=== PATIENT | female | born 1960 | race Caucasian/White ===

== ENCOUNTER 2017-08-10 14:11 | Emergency (ER) | payer OTHER, SELFPAY ==
[2017-08-10 14:13] VITALS: BP 138/88; PULSE 86; RESP 16; TEMP 36.8; O2SAT 94; BMI 41.7
--- NOTE | 2017-08-10 14:31 | ED.VISSUMM ---
- ER Visit Summary Date of Service: 08/10/17 Chief Complaint: BRB per rectum. History of Present Illness: The patient is a 57 F who presents because of reported black stool. However, she states she really did not look closely. She has noted bright red blood per rectum on the toilet paper after bowel movements. She denies any rectal pain. She denies history of GI bleed. She denies orthostatic symptoms. She denies nausea vomiting. She states she had 7-8 loose stools yesterday. She has not taken any Pepto-Bismol or Kaopectate. She is on no anticoagulants. Review of systems positive for nausea vomiting diarrhea and possibly black stool and bright red blood noted on toilet paper Past history of GERD, hypertension and anxiety Physical Examination: Vital signs reveal slightly elevated blood pressure 138/88. HEENT exam is unremarkable with pink conjunctivae. Heart is regular without murmur, gallop or rub. S1 and S2 are normal. Lungs are clear to auscultation with good movement of air bilaterally. Abdomen is soft nontender. Bowel sounds are normal. Rectal exam reveals evidence of hemorrhoids. Stool is brown. There was no bright red blood noted on rectal exam. She has no bruising noted or rash. Test Results: CBC is unremarkable. BMP is marked for an elevated glucose of 265. BUN and creatinine are 18 and 1.18. Prior lab results were reviewed and there is no significant change. One would expect elevated BUN/creatinine ratio if patient truly had black stool secondary to GI bleed. Emergency Department Course and Treatment: Because patient is uncertain whether she had black stool and was sent to the emergency room because of black stool a CBC was obtained to assess H&H since this occurred 24 hours ago and to evaluate BUN to creatinine ratio, which one would expect to be elevated if she had a GI bleed. Treatment Plan: Is not orthostatic positive and blood work is unremarkable plan is to discharge to home with appropriate home-going instructions for hemorrhoids Disposition: Discharged to home Impression: Red blood per rectum secondary to hemorrhoids Diarrhea Hyperglycemia and nondiabetic History of hypertension This note was generated with [employer] software. It may contain incorrect words, spelling, and punctuation that were not noted in review of the chart prior to signing ED Disposition - Plan for ED Patient: Disposition: Home or Assisted Living Chief Complaint: GI Bleed Instructions: ED Hemorrhoids, ED Hematochezia Stable, ED Hyperglycemia New Susp Diabetes Referrals: Kate Spencer DO [Primary Care Provider] - 3-5 Days Additional Instructions: You need to make appointment with Dr. Spencer for reassessment in 3-5 days and have your blood sugar rechecked at that time
--- NOTE | 2017-08-10 14:35 | ED.DCSUM_ITS ---
- ER Visit Summary Date of Service: 08/10/17 Chief Complaint: BRB per rectum. History of Present Illness: The patient is a 57 F who presents because of reported black stool. However, she states she really did not look closely. She has noted bright red blood per rectum on the toilet paper after bowel movements. She denies any rectal pain. She denies history of GI bleed. She denies orthostatic symptoms. She denies nausea vomiting. She states she had 7- 8 loose stools yesterday. She has not taken any Pepto-Bismol or Kaopectate. She is on no anticoagulants. Review of systems positive for nausea vomiting diarrhea and possibly black stool and bright red blood noted on toilet paper Past history of GERD, hypertension and anxiety Physical Examination: Vital signs reveal slightly elevated blood pressure 138/ 88. HEENT exam is unremarkable with pink conjunctivae. Heart is regular without murmur, gallop or rub. S1 and S2 are normal. Lungs are clear to auscultation with good movement of air bilaterally. Abdomen is soft nontender. Bowel sounds are normal. Rectal exam reveals evidence of hemorrhoids. Stool is brown. There was no bright red blood noted on rectal exam. She has no bruising noted or rash. Test Results: CBC is unremarkable. BMP is marked for an elevated glucose of 265. BUN and creatinine are 18 and 1.18. Prior lab results were reviewed and there is no significant change. One would expect elevated BUN/creatinine ratio if patient truly had black stool secondary to GI bleed. Emergency Department Course and Treatment: Because patient is uncertain whether she had black stool and was sent to the emergency room because of black stool a CBC was obtained to assess H&H since this occurred 24 hours ago and to evaluate BUN to creatinine ratio, which one would expect to be elevated if she had a GI bleed. Treatment Plan: Is not orthostatic positive and blood work is unremarkable plan is to discharge to home with appropriate home-going instructions for hemorrhoids Disposition: Discharged to home Impression: Red blood per rectum secondary to hemorrhoids Diarrhea Hyperglycemia and nondiabetic History of hypertension This note was generated with [employer] software. It may contain incorrect words, spelling, and punctuation that were not noted in review of the chart prior to signing ED Disposition - Plan for ED Patient: Disposition: Home or Assisted Living Chief Complaint: GI Bleed Instructions: ED Hemorrhoids, ED Hematochezia Stable, ED Hyperglycemia New Susp Diabetes Referrals: Kate Spencer DO [Primary Care Provider] - 3-5 Days Additional Instructions: You need to make appointment with Dr. Spencer for reassessment in 3-5 days and have your blood sugar rechecked at that time
[2017-08-10 15:00] LABS: Hematocrit 38.3 % (37-47); Hemoglobin 12.1 g/dl (12.0-15.0); Mean Corp Hgb Conc 31.6 g/gl (32-36); Mean Corpuscular Hgb 25.9 pg (27.0-32.0); Mean Platelet Vol. 10.4 fl (6.2-12.0); Platelet Count 352 K/mm3 (150-450); RBC Distribution Width CV 14.7 % (11.6-14.6); RBC Distribution Width SD 43.4 fl (35.1-43.9); Red Blood Count 4.67 M/mm3 (4.2-5.4); Scan Indicated on CBC? Y/N NO; White Blood Count 13.2 K/mm3 (4.4-11.0)
[2017-08-10 15:12] LABS: Anion Gap 9 (5-15); BUN 18 mg/dL (7-18); BUN/Creat Ratio 15.1 RATIO (10-20); Calcium,Total 8.6 mg/dL (8.5-10.1); Chloride 103 mmol/L (98-107); Creatinine, Serum 1.19 mg/dL (0.55-1.02); EST Glomerular Filtration Rate 49 mL/min (>60); Est Glom Filt Rate - Afr Amer 60 mL/min (>60); Estimated Creatinine Clearance 43.96 ml/min; Glucose 265 mg/dL (74-106); Potassium 4.7 mmol/L (3.5-5.1); Sodium Level 139 mmol/L (136-145)
[2017-08-10 15:50] VITALS: PULSE 82; RESP 14; O2SAT 98
--- NOTE | 2017-08-10 15:51 | NURSING ---
home med list not entered by nurse prior to d/c.
== END 2017-08-10 15:52 | disposition home or self-care (01) ==
PROVIDERS: Emergency Provider Emergency Medicine; Family Provider Family Medicine; PCP Family Medicine
DX: K64.8 Other hemorrhoids (principal); R19.7 Diarrhea, unspecified; R73.9 Hyperglycemia, unspecified; I10 Essential (primary) hypertension; K21.9 Gastro-esophageal reflux disease without esophagitis; E66.9 Obesity, unspecified; Z68.41 Body mass index [BMI] 40.0-44.9, adult; Z79.899 Other long term (current) drug therapy; Z87.891 Personal history of nicotine dependence
CPT/HCPCS: 80048; 85027; 99282; A4216

== ENCOUNTER → 2017-09-01 16:29 | Outpatient (CLI) | payer OTHER, SELFPAY ==
--- NOTE | 2017-09-01 16:43 | BI_ITS ---
MAMMOGRAPHY - BILATERAL SCREENING REASON FOR EXAM: Female, 57 years old. Routine annual screening examination. PERTINENT HISTORY: NO FAM HX GAINED SINCE LAST MAMM STEREO BX 2000 BILAT KERATOSIS IN IMF MARKED TECHNIQUE: Digital bilateral breast morro (3D mammographic acquisition) in the CC and MLO projections. 2-D mediolateral oblique (MLO) and craniocaudad (CC) views of both breasts were obtained. CAD: Full Field Digital Mammography with Computer Added Detection was performed. COMPARISON: Dec 08 2012 1:29pm FINDINGS: Breast Composition: The breasts are heterogeneously dense, which may obscure small masses. There are no dominant masses or suspicious calcifications. No other significant abnormalities are identified. BI/SCREENING MAMM (CAD), BILAT IMPRESSION: Stable bilateral screening mammogram. Yearly follow-up mammogram recommended. (A) ASSESSMENT CATEGORY: BIRADS Category 2: Benign. A letter regarding these results will be sent to the patient by the facility within 30 days. Approximately 10% of breast cancers are not detected by mammography. A normal mammogram should not delay biopsy of a clinically suspicious abnormality. [id number] Electronically Signed: Aby Muro MD at 15:44 EDT Tel , Service support ,
== END ==
PROVIDERS: Family Provider Family Medicine; PCP Family Medicine; Visit Provider Family Medicine
DX: Z12.31 Encounter for screening mammogram for malignant neoplasm of breast (principal)
CPT/HCPCS: 77063; 77067

== ENCOUNTER → 2017-12-25 14:25 | Outpatient (CLI) | payer OTHER, SELFPAY | LOC: RAD 14:26 | PROVIDERS: Family Provider Family Medicine; PCP Family Medicine; Visit Provider Family Medicine | DX: M51.16 Intervertebral disc disorders with radiculopathy, lumbar region (principal) | CPT/HCPCS: 72114 ==

== ENCOUNTER → 2018-01-12 17:30 | Outpatient (CLI) | payer OTHER, SELFPAY ==
--- NOTE | 2018-01-12 18:15 | MRI_ITS ---
STUDY: MRI LUMBAR SPINE WITHOUT CONTRAST REASON FOR EXAM: Female, 57 years old. Low-back pain TECHNIQUE: Standardized fat and water weighted pulse sequences were obtained in the sagittal and axial planes. COMPARISON: None FINDINGS: No evidence for acute fracture or subluxation. 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 T12-L1: Normal endplates. Normal disc height, hydration and morphology. Normal bilateral facet joints. Normal central canal and bilateral lateral recesses. Normal bilateral intervertebral neural foramina. Normal lumbar lordosis. There is no substantial scoliosis. Normal conus medullaris that terminates at T12-L1 L1-2: Normal endplates. Normal disc height, hydration and morphology. Normal bilateral facet joints. Normal central canal and bilateral lateral recesses. Normal bilateral intervertebral neural foramina. L2-3: Normal endplates. Normal disc height, desiccation and normal morphology. Normal bilateral facet joints. Normal central canal and bilateral lateral recesses. Normal bilateral intervertebral neural foramina. L3-4: Normal endplates. Normal disc height, desiccation and normal morphology. Normal bilateral facet joints. Normal central canal and bilateral lateral recesses. Normal bilateral intervertebral neural foramina. L4-5: Normal endplates. Normal disc height, desiccation and minimal annular bulge. Mild facet arthropathy slightly more pronounced on the left. Normal central canal. Mild left lateral recess and neuroforaminal stenosis. L5-S1: Normal endplates. Normal disc height, desiccation and minor annular bulge with tiny left paracentral annular tear and disc protrusion.. Bilateral facet arthropathy.. Normal central canal. Minor bilateral recess encroachment. Normal bilateral intervertebral neural foramina. Normal visualized sacral ala. Small left renal cyst is present. Normal visualized paraspinous soft tissue structures. MRI/Spine Lumbar (Routine) IMPRESSION: No evidence for acute fracture or other significant bony pathology Mild spinal stenosis at L5-S1 and on the left at L4-5 secondary to disc disease and bony hypertrophy. Electronically Signed: Hubert Richards MD at 19:43 EDT , Service support ,
== END ==
LOC: MRI 17:31
PROVIDERS: Family Provider Family Medicine; PCP Family Medicine; Visit Provider Family Medicine
DX: M51.16 Intervertebral disc disorders with radiculopathy, lumbar region (principal)
CPT/HCPCS: 72148

== ENCOUNTER 2018-04-09 12:28 | Day surgery (SDC) | payer OTHER, SELFPAY ==
[2018-04-09] VITALS (7 sets, daily range): BP systolic 124–139; BP diastolic 69–81; PULSE 90–94; RESP 16; TEMP 36.3–36.8; O2SAT 94–95; BMI 39.6
[2018-04-09 13:10] LABS: Bedside Glucose 113 mg/dL (70-110)
--- NOTE | 2018-04-09 13:50 | RAD_ITS ---
PROCEDURE: Left L3-S1 facet joint block. DATE OF EXAMINATION: April 09, 2018. INDICATION: Female, 57 years old. Chronic low back pain. FLUOROSCOPY TIME (if supplied): (0:22) minutes/seconds Intraoperative fluoroscopic imaging provided for left L3-S1 facet joint block. RAD/L/S Spine w Bend Min 6 Vw IMPRESSION: Intraoperative fluoroscopic services provided for left L3-S1 facet joint block. Electronically Signed: Simeon Osuna MD at 8:17 EST Tel [phone], Service support ,
--- NOTE | 2018-04-09 14:42 | DCINST_ITS ---
- Discharge Diagnoses Current Active Problems: Lumbar facet spondylosis Reason(s) for Visit for Discharge Instructions: Lumbar facet injection You will use the following diet at home:: No restrictions Your food should be the consistency of: Regular Your liquids should be the consistency of: Regular/Thin Discharge Activity: Return to Normal Activity Weight Bearing Status: Weight bearing as tolerated Call your doctor if your incision/area has: Continuous Slow Oozing, Sudden Increased Bleeding, Increased Pain/ Swelling, Increased Redness, Foul Smelling Discharge, Swelling at the incision site Call your doctor if you observe: Fever of 101 or Higher, Coldness, Increased Pain, Uncontrolled pain Suture Line Care: Avoid Pulling/Pushing, Avoid Pinching/Bending Cleanse incision/area with: Soap & Water Allergies/Adverse Reactions: Allergies Penicillins Allergy (Verified 04/08/18 11:04) Hives Medications to take at Discharge Atenolol [Tenormin (beta mine)] 50 mg PO DAILY 06/08/14 Esomeprazole Mag Trihydrate [Nexium] 40 mg PO DAILY 06/08/14 Glipizide [Glucotrol Xl] 10 mg PO BID 06/08/14 Lisinopril [Zestril] 40 mg PO DAILY 06/08/14 Amlodipine [Norvasc] 10 mg PO QHS 04/08/18 Duloxetine Hcl [Cymbalta] 60 mg PO QHS 04/08/18 Liraglutide [Victoza] 1.8 mg SQ DAILY 04/08/18 Meloxicam 15 mg PO DAILY 04/08/18 Metformin HCl [Glucophage] 1,000 mg PO BIDCM 04/08/18 Methocarbamol [Robaxin] 500 mg PO BID 04/08/18 Pramipexole Di-HCl [Mirapex] 0.5 mg PO QHS 04/08/18 Primary Care Physician: Kate Spencer DO [Primary Care Provider] - Test Results: Test results from this visit will be discussed in further detail at your follow- up appointment, if applicable. Please Follow Up With: Claudia Amaya MD
--- NOTE | 2018-04-09 14:42 | PCM.OPRPT ---
Problem List (1) Low back pain Status: Acute (2) Low back pain Status: Acute (3) Spondylosis of lumbar region without myelopathy or radiculopathy Status: Acute Report of Operation Date of Procedure: 04/09/18 Pre-Operative Diagnosis: Facets spondylosis Post-Operative Diagnosis: Lumbar facet spondylosis Surgery/Procedure Performed:: Left-sided lumbar facet injection at the level of the L3-4 L4-5-S1 under fluoroscopy guidance Description of Surgical Findings:: Under sterile conditions. Patient placed in the prone position, pressure points were padded, patient was ready from the nursing and the anesthesia team. After identification of the side and the target area for the block under guided fluoroscopy, the entry site was marked with marking pen. I used Betadine for sterilization of the skin, sterile draping were applied. Using 25-gauge needle to infiltrate the skin with local anesthesia using preservative-free lidocaine 0.5% injected 2.5 mL at each site of entry. Using oblique fluoroscopy, accessed the right medial nerve branch supplying the left lumbar facets L3-4, L4-5, L5-S1 using 22-gauge spinal needle. After confirmation of appropriate needle placement to the targeted area with AP and lateral fluoroscopy, injected 2.5 mL mixture of preservative-free Marcaine 0.5% and Kenalog [20] mg at each site. [place] was removed, pressure dressing were applied. Patient tolerated the procedure well and was taken to the recovery. Type of Anesthesia:: Local MAC, MAC, MAC/Supplemental Description of Procedure: Left-sided lumbar facet blocks, see above
[2018-04-09] MEDS: Bupivacaine 0.25% 30 ML Vial (14:49)
[2018-04-09] MEDS: Triamcinolone Acetonide 40 MG/ML Vial (14:49)
== END 2018-04-09 15:32 | disposition home or self-care (01) ==
LOC: SDC 12:29 → AC 12:30
PROVIDERS: Family Provider Family Medicine; PCP Family Medicine; Referring Provider Anesthesiology; Visit Provider Anesthesiology
PROC: 3E0T3BZ Introduction of Anesthetic Agent into Peripheral Nerves and Plexi, Percutaneous Approach (ICD-10-PCS; CPT 64493; principal; 2018-04-09 13:45)
DX: M47.816 Spondylosis without myelopathy or radiculopathy, lumbar region (principal); M99.53 Intervertebral disc stenosis of neural canal of lumbar region; M48.062 Spinal stenosis, lumbar region with neurogenic claudication; M51.36 Other intervertebral disc degeneration, lumbar region; M51.26 Other intervertebral disc displacement, lumbar region; G89.29 Other chronic pain; E11.9 Type 2 diabetes mellitus without complications; I10 Essential (primary) hypertension; G25.81 Restless legs syndrome; G47.30 Sleep apnea, unspecified; K21.9 Gastro-esophageal reflux disease without esophagitis; Z78.0 Asymptomatic menopausal state; Z79.899 Other long term (current) drug therapy; Z79.84 Long term (current) use of oral hypoglycemic drugs
CPT/HCPCS: 64493; 64494; 64495; 64483; 72114; 82962; J7120

== ENCOUNTER 2018-04-23 12:17 | Day surgery (SDC) | payer OTHER, SELFPAY ==
[2018-04-09 12:50] VITALS: BMI 39.6
[2018-04-23 12:56] VITALS: BP 129/70; PULSE 93; RESP 16; TEMP 36.6; O2SAT 95; BMI 38.3
[2018-04-23 13:11] LABS: Bedside Glucose 117 mg/dL (70-110)
--- NOTE | 2018-04-23 13:40 | RAD_ITS ---
STUDY: X-RAY - LUMBAR SPINE REASON FOR EXAM: Female, 57 years old. Facet block. TECHNIQUE: 5 fluoroscopic spot view(s) of the lumbar spine were obtained. FLUOROSCOPY TIME (if supplied): (0:22) minutes/seconds COMPARISON: None FINDINGS: Fluoroscopic images were submitted, as radiology support for c-arm imaging in the operating room. This is not a diagnostic examination. Images are for documentation purposes only. RAD/L/S Spine Min 4 Views IMPRESSION: As above. Electronically Signed: Holden Esquivel MD at 7:51 EST , Service support ,
[2018-04-23] MEDS: Triamcinolone Acetonide 40 MG/ML Vial (14:45)
[2018-04-23] MEDS: Bupivacaine 0.25% 30 ML Vial (14:45)
[2018-04-23 14:55] VITALS: BP 113/64; BP 139/70; PULSE 101; RESP 16; TEMP 36.2; O2SAT 95
--- NOTE | 2018-04-23 14:58 | DCINST_ITS ---
- Discharge Diagnoses Current Active Problems: Lower back pain due to lumbar facet spondylosis Reason(s) for Visit for Discharge Instructions: To receive right side L3-4 L4-5-S1 facet medial nerve branch block for her lower back pain You will use the following diet at home:: No restrictions, Regular Your food should be the consistency of: Regular Your liquids should be the consistency of: Regular/Thin Discharge Activity: Return to Normal Activity Return to work on:: 04/28/18 May shower in (days): 1 May resume sexual activity in: No Restrictions Weight Bearing Status: Weight bearing as tolerated Call your doctor if your incision/area has: Continuous Slow Oozing, Foul Smelling Discharge Call your doctor if you observe: Coldness, Increased Pain, Numbness or Tingling, Uncontrolled pain Suture Line Care: Avoid Pulling/Pushing, Avoid Pinching/Bending Change Dressing in (Days):: 1 Remove Dressing in (days):: 1 Cleanse incision/area with: Soap & Water, Keep Dressing Clean & Dry Allergies/Adverse Reactions: Allergies Penicillins Allergy (Verified 04/08/18 11:04) Hives Medications to take at Discharge Atenolol [Tenormin (beta mine)] 50 mg PO DAILY 06/08/14 Esomeprazole Mag Trihydrate [Nexium] 40 mg PO DAILY 06/08/14 Glipizide [Glucotrol Xl] 10 mg PO BID 06/08/14 Lisinopril [Zestril] 40 mg PO DAILY 06/08/14 Amlodipine [Norvasc] 10 mg PO QHS 04/08/18 Duloxetine Hcl [Cymbalta] 60 mg PO QHS 04/08/18 Liraglutide [Victoza] 1.8 mg SQ DAILY 04/08/18 Meloxicam 15 mg PO DAILY 04/08/18 Metformin HCl [Glucophage] 1,000 mg PO BIDCM 04/08/18 Methocarbamol [Robaxin] 500 mg PO BID 04/08/18 Pramipexole Di-HCl [Mirapex] 0.5 mg PO QHS 04/08/18 Primary Care Physician: Kate Spencer DO [Primary Care Provider] - Test Results: Test results from this visit will be discussed in further detail at your follow- up appointment, if applicable. Please Follow Up With: Claudia Amaya MD
[2018-04-23 15:00] VITALS: BP 110/61; BP 139/70; PULSE 16; RESP 16; O2SAT 97
--- NOTE | 2018-04-23 15:00 | OP.PCM_ITS ---
Problem List (1) Spondylosis of lumbar region without myelopathy or radiculopathy Status: Acute (2) Low back pain Status: Chronic (3) Low back pain Status: Acute Report of Operation Date of Procedure: 04/23/18 Pre-Operative Diagnosis: Lower back pain due to lumbar facet spondylosis Post-Operative Diagnosis: Same Surgery/Procedure Performed:: Right side L3-4 L4-5 , L5-S1 facets medial nerve branch block under fluoroscopy guidance Description of Surgical Findings:: Under sterile conditions. Patient placed in the prone position, pressure points were padded, patient was ready from the nursing and the anesthesia team. After identification of the side and the target area for the block under guided fluoroscopy, the entry site was marked with marking pen. I used Betadine for sterilization of the skin, sterile draping were applied. Using 25-gauge needle to infiltrate the skin with local anesthesia using preservative-free lidocaine 0.5% injected 2.5 mL at each site of entry. Using oblique fluoroscopy, accessed the right medial nerve branch supplying the [right] lumbar facets L3-4, L4-5, L5-S1 using 22-gauge spinal needle. After confirmation of appropriate needle placement to the targeted area with AP and lateral fluoroscopy, injected 2.5 mL mixture of preservative-free Marcaine 0.5% and Kenalog [10] mg at each site. [place] was removed, pressure dressing were applied. Patient tolerated the procedure well and was taken to the recovery. Type of Anesthesia:: Local MAC Special Medications: Lidocaine 1% preservative-free. Bupivacaine 0.5% preservative-free. Kenalog 40 mg Specimen's removed: None Estimated Blood Loss (mL): None - Complications None - Admit VTE Documentation Reason prophylaxis not ordered:: Procedure Not Indicated
[2018-04-23 15:05] VITALS: BP 120/69; BP 139/70; PULSE 99; RESP 16; O2SAT 94
[2018-04-23 15:10] VITALS: BP 123/76; BP 139/70; PULSE 96; RESP 16; TEMP 36.1; O2SAT 98
[2018-04-23 15:20] VITALS: BP 139/70
== END 2018-04-23 15:40 | disposition home or self-care (01) ==
LOC: SDC 12:17 → AC 12:19
PROVIDERS: Family Provider Family Medicine; PCP Family Medicine; Referring Provider Anesthesiology; Visit Provider Anesthesiology
PROC: 3E0T3BZ Introduction of Anesthetic Agent into Peripheral Nerves and Plexi, Percutaneous Approach (ICD-10-PCS; CPT 64493; principal; 2018-04-23 13:35)
DX: M47.816 Spondylosis without myelopathy or radiculopathy, lumbar region (principal); I10 Essential (primary) hypertension; K21.9 Gastro-esophageal reflux disease without esophagitis; G25.81 Restless legs syndrome; E11.9 Type 2 diabetes mellitus without complications; Z79.84 Long term (current) use of oral hypoglycemic drugs; Z87.891 Personal history of nicotine dependence; Z79.899 Other long term (current) drug therapy
CPT/HCPCS: 01922; 64493; 64494; 64495; 64483; 72110; 82962; J7120

== ENCOUNTER → 2019-03-07 07:34 | Outpatient (CLI) | payer OTHER, SELFPAY ==
[2019-03-07 07:56] LABS: Absolute Lymphocyte Count 2.57 X10^3/uL (0.83-4.51); Absolute Neutrophil Count 9.1 X10^3/uL (2.0-7.7); Basophil# 0.08 X10^3/uL; Basophil% 0.6 % (0-1); Eosinophil# 0.37 X10^3/uL; Eosinophils% 2.9 % (0-5); Hematocrit 39.8 % (37-47); Hemoglobin 12.3 g/dL (12.0-15.0); Lymphocyte # 2.57 X10^3/ul (4.0); Lymphocyte % 19.8 % (19-41); Mean Corp Hgb Conc 30.9 g/dL (32-36); Mean Corpuscular Hgb 25.4 pg (27.0-32.0); Mean Corpuscular Volume 82.1 fL (81-99); Mean Platelet Vol. 9.6 fl (6.2-12.0); Monocyte# 0.74 X10^3/uL; Monocyte% 5.7 % (0-10); NRBC Flagged by Analyzer 0 % (0-5); Neutrophil # 9.07 X10^3/uL (2.7-7.7); Neutrophil % 69.9 % (47-70); Platelet Count 366 K/mm3 (150-450); RBC Distribution Width SD 41.2 fl (35.1-43.9); Red Blood Count 4.85 M/mm3 (4.2-5.4)
[2019-03-07 08:40] LABS: ALB/GLOB Ratio 0.8 RATIO (0.9-2.4); AST(SGOT) 23 U/L (15-37); Alanine Aminotransfer ALT/SGPT 27 U/L (13-56); Albumin, Serum 3.2 g/dL (3.2-5.0); Alkaline Phosphatase 100 U/L (45-117); Anion Gap 10 (5-15); BUN 9 mg/dL (7-18); BUN/Creat Ratio 9.8 RATIO (10-20); Calcium,Total 8.7 mg/dL (8.5-10.1); Chloride 103 mmol/L (98-107); Cholesterol 171 mg/dL (200); Creatinine, Serum 0.92 mg/dL (0.55-1.02); EST Glomerular Filtration Rate 66 mL/min (>60); Est Glom Filt Rate - Afr Amer 80 mL/min (>60); Free T3 2.6 pg/mL (2.18-3.98); Globulin 3.9 g/dL (2.2-4.2); Glucose 165 mg/dL (74-106); High Density Lipoprotein 41 mg/dL; Lipase 251 U/L (73-393); Potassium 3.9 mmol/L (3.5-5.1); Protein, Total 7.1 g/dL (6.4-8.2); Sodium Level 140 mmol/L (136-145); T4 Free Direct 1.19 ng/dL (0.76-1.46); Thyroid Stim Hormone (TSH) 1.21 uIU/mL (0.358-3.74); Triglycerides 146 mg/dL; Very Low Density Lipoprotein 29 mg/dL (5-40)
[2019-03-09 00:12] LABS: Endomysial Antibody IgA Negative (Negative); HEPATITIS B SURFACE AG Negative (Negative); Hepatitis A IgM Antibody Negative (Negative); Hepatitis B Core AB IgM Negative (Negative); Immunoglobulin A 329 mg/dL (87-352)
[2019-03-09 11:57] LABS: Hep C Antibodies 0.1 s/co ratio (0.0-0.9); t-Transglutaminase IgA <2 U/mL (0-3)
== END ==
LOC: LAB 07:37
PROVIDERS: Family Provider Family Medicine; PCP Family Medicine; Referring Provider Family Medicine; Visit Provider Family Medicine
DX: E11.9 Type 2 diabetes mellitus without complications (principal); E78.5 Hyperlipidemia, unspecified; K21.9 Gastro-esophageal reflux disease without esophagitis; R10.9 Unspecified abdominal pain; R53.83 Other fatigue
CPT/HCPCS: 36415; 80053; 80061; 80074; 82784; 83516; 83690; 84439; 84443; 84481; 85025; 86255

== ENCOUNTER 2019-06-22 17:10 | Observation (INO) | payer OTHER, SELFPAY ==
[2019-06-22] VITALS (11 sets, daily range): BP systolic 105–155; BP diastolic 66–85; PULSE 109–127; RESP 14–20; TEMP 36.7–37.2; O2SAT 84–97; BMI 40.4; BMI 40.5; BMI 40.6
[2019-06-22] MEDS: Ipratropium/Albuterol Sulfate 3 ML AMPUL.NEB INHALATION (18:34)
[2019-06-22 18:48] LABS: Absolute Lymphocyte Count 1.25 X10^3/uL (0.83-4.51); Absolute Neutrophil Count 4.6 X10^3/uL (2.0-7.7); Basophil# 0.03 X10^3/uL; Basophil% 0.4 % (0-1); Eosinophil# 0.04 X10^3/uL; Eosinophils% 0.6 % (0-5); Hematocrit 43.1 % (37-47); Lymphocyte # 1.25 X10^3/ul (4.0); Lymphocyte % 17.8 % (19-41); Mean Corp Hgb Conc 30.2 g/dL (32-36); Mean Corpuscular Hgb 24.8 pg (27.0-32.0); Mean Corpuscular Volume 82.1 fL (81-99); Mean Platelet Vol. 9.9 fl (6.2-12.0); Monocyte% 14.2 % (0-10); NRBC Flagged by Analyzer 0 % (0-5); Neutrophil # 4.58 X10^3/uL (2.7-7.7); Neutrophil % 65.2 % (47-70); Platelet Count 303 K/mm3 (150-450); RBC Distribution Width CV 14.6 % (11.6-14.6); RBC Distribution Width SD 43.6 fl (35.1-43.9); Red Blood Count 5.25 M/mm3 (4.2-5.4)
[2019-06-22] MEDS: Acetaminophen 500 MG Tablet 1000 MG PO (18:48)
[2019-06-22] MEDS: 0.9% Normal Saline 1,000 ML 1000 ML IV (18:48)
--- NOTE | 2019-06-22 18:56 | RAD_ITS ---
STUDY: X-RAY CHEST REASON FOR EXAM: Female, 59 years old. COUGH WITH SOB FEVER NAUSEA AND VOMITING TECHNIQUE: PA and lateral views of the chest. COMPARISON: 05/07/2017 FINDINGS: EKG leads project over the chest. The lungs are clear and expanded. There is no demonstrated pleural abnormality. Normal size heart. Normal mediastinum and edwina. Normal visualized pulmonary arteries. Normal visualized aortic arch and descending thoracic aorta. Normal visualized thoracic spine. Normal visualized ribs, clavicles, and shoulders. There are surgical clips in the right upper abdomen. RAD/Chest PA and Lateral IMPRESSION: Stable, nonacute x-ray examination of the chest. Electronically Signed: Miguel Cobb MD ([place]) at 19:32 EST , Service support ,
[2019-06-22 18:58] LABS: Lactic Acid 1.6 mmol/L (0.4-1.9)
[2019-06-22 18:59] LABS: ALB/GLOB Ratio 0.8 RATIO (0.9-2.4); AST(SGOT) 51 U/L (15-37); Alanine Aminotransfer ALT/SGPT 32 U/L (13-56); Albumin, Serum 3.3 g/dL (3.2-5.0); Alkaline Phosphatase 101 U/L (45-117); Anion Gap 4 (5-15); BUN 19 mg/dL (7-18); BUN/Creat Ratio 15.4 RATIO (10-20); Calcium,Total 8.8 mg/dL (8.5-10.1); Chloride 101 mmol/L (98-107); Creatinine, Serum 1.23 mg/dL (0.55-1.02); EST Glomerular Filtration Rate 47 mL/min (>60); Est Glom Filt Rate - Afr Amer 57 mL/min (>60); Estimated Creatinine Clearance 41.48 ml/min; Globulin 4.3 g/dL (2.2-4.2); Glucose 175 mg/dL (74-106); Potassium 4.1 mmol/L (3.5-5.1); Protein, Total 7.6 g/dL (6.4-8.2); Sodium Level 136 mmol/L (136-145)
[2019-06-22 19:44] LABS: Mucous, Urine 0 SEEN /hpf (<or=2+); Red Blood Cells-Urine 0 SEEN /hpf (0-5)
[2019-06-22 19:47] LABS: Color, Urine Yellow (Yellow); Glucose, Dipstick Normal (Normal); Ketone-Dipstick 15 mg/dl (Negative); Leukocyte Esterase-Dipstick 25 /ul (Negative); Nitrite-Dipstick Positive (Negative); Occult Blood-Urine Negative /ul (Negative); Protein-Dipstick 30 mg/dl (Negative); Specific Gravity, Urine 1.025 (1.002-1.030); Urine Bilirubin Dipstick Negative (Negative); Urine Clarity Clear (Clear); Urine Urobilinogen Normal (Normal)
[2019-06-22 20:03] LABS: Hyaline Cast 0-5 SEEN /lpf (0-5)
[2019-06-22 20:04] LABS: Bacteria RARE /hpf (None Seen); Squamous Epithelial Cells - UA 0-5 SEEN /hpf (5-10); White Blood Cells 0-5 SEEN /hpf (0-5)
--- NOTE | 2019-06-22 21:21 | ED.VISSUMM ---
- ER Visit Summary Date of Service: 06/22/19 Chief Complaint: Shortness of breath and congestion History of Present Illness: The patient is a 59 F who presents with shortness of breath and congestion that is been getting worse over the past 3 days. Patient states she feels congested in her chest. Patient states she has generalized aches. Patient admits to subjective fevers. Patient also admits to some nausea, vomiting, and diarrhea. Patient denies any chest pain. Patient admits to a cough but denies any sputum production. Patient states nothing makes it better or worse. Physical Examination: Vital signs are stable except for tachycardia of 127. Patient's pulse oximeter is 87% on room air. Patient does not use home oxygen. Oral mucosa is pink and moist. Neck is supple. Trachea is midline. There is no JVD. Heart was regular and tachycardic. Lungs showed diffuse expiratory wheezing. Abdomen is soft. Bowel sounds are normal. There is no tenderness. Cranial nerves II through XII are intact. There are no focal motor or sensory deficits noted. Test Results: PA and lateral chest x-ray was obtained. There is no acute cardiopulmonary process. CBC was normal. Comprehensive metabolic profile showed a slightly elevated creatinine of 1.23 and a BUN of 19. Urinalysis does not show any evidence of urinary tract infection. EKG shows sinus tachycardia with a rate of 125. There are no acute ST or T wave changes. Influenza swab was positive for influenza A. Emergency Department Course and Treatment: Patient was given IV fluids here. Patient was given a DuoNeb aerosol initially. Patient was given a dose of Tylenol. Patient was still having wheezing on reevaluation. Patient was given a dose of albuterol and prednisone. Patient walked to the bathroom and her pulse ox dropped to 84% on room air. I recommended to the patient that she be admitted to the hospital. Patient is agreeable with this. Case was discussed with the hospitalist. He will admit the patient to his service. Disposition: Admit to hospital Impression: 1. Hypoxia 2. Reactive airway disease This note was generated with [employer] software. It may contain incorrect words, spelling, and punctuation that were not noted in review of the chart prior to signing ED Disposition - Plan for ED Patient: Disposition: Acute Care Hospital [facility] Diagnosis: Hypoxia, Reactive airway disease
--- NOTE | 2019-06-22 21:24 | EKG12_ITS ---
Test Reason : SOB Blood Pressure : / mmHG Vent. Rate : 125 BPM Atrial Rate : 125 BPM P-R Int : 156 ms QRS Dur : 080 ms QT Int : 312 ms P-R-T Axes : 072 -03 048 degrees QTc Int : 450 ms Sinus tachycardia Otherwise normal ECG Confirmed by DREW SNIDER, IMAN ([id number]), editor index MARTI SELF ([id number]) on 06/27/2019 2:32:31 PM Referred By: JEAN Confirmed By:KEN RUSSELL MD
--- NOTE | 2019-06-22 21:24 | PCM.HP.STD ---
Problem List (1) Viral syndrome Status: Acute (2) Hypoxia Status: Acute (3) Reactive airway disease Status: Acute (4) Spondylosis of lumbar region without myelopathy or radiculopathy Status: Chronic (5) Low back pain Status: Chronic (6) Low back pain Status: Chronic History of Present Illness Date of Admission: 06/22/19 Chief Complaint: sob The patient is a 59 year old F with a significant history of chronic back pain; diabetes mellitus; Bahena's esophagitis; and hypertension who presented to emergency department with shortness of breath. Associated with her symptoms is nonproductive cough; nausea; vomiting and diarrhea. Patient reports loose bowel movements with coughing. At the emergency department patient was found to have oxygen saturation of 87% on room air at rest; and with ambulation oxygen saturation dropped to 84%. Past Medical History Past Medical History (Chronic Problems): Chronic Problems Spondylosis of lumbar region without myelopathy or radiculopathy (Chronic) Low back pain (Chronic) Low back pain (Chronic) Allergies Penicillins Allergy (Verified 04/08/18 11:04) Hives Home Medications: Ambulatory Orders Medication Instructions Recorded Atenolol [Tenormin (beta mine)] 50 mg PO DAILY 06/08/14 Esomeprazole Mag Trihydrate 40 mg PO DAILY 06/08/14 [Nexium] Lisinopril [Zestril] 40 mg PO DAILY 06/08/14 Amlodipine [Norvasc] 10 mg PO QHS 04/08/18 Duloxetine Hcl [Cymbalta] 60 mg PO QHS 04/08/18 Pramipexole Di-HCl [Mirapex] 0.5 mg PO QHS 04/08/18 metFORMIN HCl [Glucophage] 1,000 mg PO BIDCM 04/08/18 Cyclobenzaprine HCl 10 mg PO TID PRN PRN 06/22/19 Dulaglutide [Trulicity] 1.5 injectable SQ WEBSTER 06/22/19 Glipizide [Glipizide Xl] 10 mg PO DAILY 06/22/19 Surgical History: cholecystectomy Lives: With Family Smoking Status: Former smoker Alcohol: None - *Family History Maternal History Items: - - Patient thinks that her mother was at the event of getting diabetes. Paternal History Items: Cancer - bladder Review of Systems Constitutional: Reports: Fever - Subjective. Denies: Chills, Weight Change HEENT: Denies: Head Aches, Sinus Congestion, Sinus Drainage Cardiovascular: Denies: Chest Pain, Palpitations Respiratory: Reports: Cough, Shortness of Breath. Denies: Sputum production Gastrointestinal: Reports: Diarrhea, Nausea, Vomiting. Denies: Abdominal Pain Genitourinary: Denies: Dysuria Musculoskeletal: Reports: Muscle pain. Denies: Joint Pain, Joint Tenderness Skin: Denies: Rash, Wounds Neurological: Denies: Numbness, Tingling, Focal weakness Psychiatric: Denies: Anxiety, Depression, Homicidal Ideations, Suicidal Ideations Hematologic/ Lymphatic: Denies: Easy Bruising, Easy Bleeding VTE Information - Inpt Only VTE Present on Admission: No VTE Mechan Device Prophylaxis: None VTE Pharm Prophylaxis ordered?: Yes Patient Problems: Active and Suspected Problems Hypoxia (Acute) Reactive airway disease (Acute) Viral syndrome (Acute) - Physical Exam Vitals/I&O's: Vital Signs Temp Pulse Resp BP Pulse Ox 98.1 F 109 H 15 105/74 95 06/22/19 20:00 06/22/19 20:00 06/22/19 20:00 06/22/19 20:00 06/22/19 20:00 Oxygen Flow Rate (L/min) 3 Oxygen Delivery Method Nasal Cannula Weight: 108.4 kg Body Mass Index (BMI) 40.4 Intake and Output for Last 24 Hours 06/20/19 06/21/19 06/22/19 23:59 23:59 23:59 Intake Total 1000 / 1000 Balance 1000 / 1000 General: Alert, Oriented x3, Cooperative HEENT: Atraumatic, PERRLA, EOMI, Normocephalic Neck: Supple, No JVD, Negative Carotid Bruits Lungs: Rhonchi, Wheezes Cardiovascular: Regular Rhythm, Normal S1, Normal S2, No murmurs, Tachycardic Abdomen: Bowel Sounds Present, Soft, Non Tender Extremities: No edema, Capillary Refill Less than 3 Seconds Skin: - - Scabbed area on left perez Musculoskeletal: No Tenderness to Palpation of Joints or Extremities Neurological: Cranial nerves II-XII grossly intact Psych/Mental Status: Normal Affect, Appropriate Laboratory Results 06/22/19 17:55: WBC 7.0, RBC 5.25, Hgb 13.0, Hct 43.1, MCV 82.1, MCH 24.8 L, MCHC 30.2 L, RDW Std Deviation 43.6, RDW Coeff of Moris 14.6, Plt Count 303, MPV 9.9, Immature Gran % (Auto) 1.800 H, Neut % (Auto) 65.2, Lymph % (Auto) 17.8 L, Haywood % (Auto) 14.2 H, Eos % (Auto) 0.6, Baso % (Auto) 0.4, Absolute Neuts (auto) 4.6, Absolute Lymphs (auto) 1.25, Nucleated RBC % 0 06/22/19 17:55: Sodium 136, Potassium 4.1, Chloride 101, Carbon Dioxide 31.0, Anion Gap 4 L, BUN 19 H, Creatinine 1.23 H, Estim Creat Clear Calc 41.48, Est GFR (MDRD) Af Amer 57 L, Est GFR (MDRD) Non-Af 47 L, BUN/Creatinine Ratio 15.4, Glucose 175 H, Calcium 8.8, Total Bilirubin 0.10 L, AST 51 H, ALT 32, Alkaline Phosphatase 101, Total Protein 7.6, Albumin 3.3, Globulin 4.3 H, Albumin/Globulin Ratio 0.8 L 06/22/19 17:55: Lactic Acid 1.6 06/22/19 19:40: Urine Color Yellow, Urine Clarity Clear, Urine pH 5.0, Ur Specific Mcclure 1.025, Urine Protein 30 H, Urine Glucose (UA) Normal, Urine Ketones 15 H, Urine Occult Blood Negative, Urine Nitrite Positive H, Urine Bilirubin Negative, Urine Urobilinogen Normal, Ur Leukocyte Esterase 25 H, Urine RBC 0 SEEN, Urine WBC 0-5 SEEN, Ur Squamous Epith Cells 0-5 SEEN, Urine Bacteria RARE, Hyaline Casts 0-5 SEEN, Urine Mucus 0 SEEN Assessment/Plan All Active Problems Hypoxia (Acute) Reactive airway disease (Acute) Viral syndrome (Acute) The patient is a 59 year old F with a significant history of chronic back pain; diabetes mellitus; Bahena's esophagitis; and hypertension who presented to emergency department with shortness of breath; nonproductive cough; nausea; vomiting and diarrhea; bandemia; and hypoxia consistent with viral syndrome. Viral syndrome Influenza screen was done at emergency department. Follow results. If negative consider comprehensive respiratory pathogen panel. Was given prednisone 60 mg at the Emergency department. Continue patient on prednisone 40 mg daily. Mucinex ordered. Scheduled DuoNeb and PRN albuterol ordered. Chest x-ray showed no acute abnormality. Chest x-ray was independently reviewed. I agree with radiologist interpretation. Trend CBC and BMP. Hypertension On presentation blood pressure was not within goal Atenolol and amlodipine continued. Lisinopril continued. Trend blood pressure and adjust blood pressure medications. Diabetes mellitus with nephropathy and hyperglycemia Patient with proteinuria and CKD. On presentation blood glucose was elevated. Hold home metformin in the setting of acute disease. At home patient takes Trulicity weekly on Sundays. Continue glipizide. Add correction scale insulin. Chronic back pain Cymbalta and cyclobenzaprine continued. Elevated liver enzymes Found to have elevated AST likely fatty liver disease. Follow-up outpatient. CKD stage III Stable Left leg syndrome Mirapex continued DVT Prophylaxis Subcutaneous Lovenox. Code Visit OBSV E&M: 19564 Initial observation care L3
[2019-06-22] MEDS: Albuterol 2.5 MG/3 ML VIAL.NEB. INHALATION (21:25)
[2019-06-22] MEDS: predniSONE 20 MG Tablet 60 MG PO (21:25)
[2019-06-23] VITALS (13 sets, daily range): BP systolic 121–135; BP diastolic 58–76; PULSE 94–111; RESP 12–20; TEMP 36.3–36.8; O2SAT 92–97
[2019-06-23] MEDS: Ipratropium/Albuterol Sulfate 3 ML AMPUL.NEB INHALATION ×5 (00:05→19:51)
[2019-06-23] MEDS: Oseltamivir Phosphate 30 MG Capsule PO ×3 (00:27→21:41)
[2019-06-23] MEDS: guaiFENesin 1,200 MG Tablet 1200 MG PO ×3 (00:28→21:41)
[2019-06-23] MEDS: Pramipexole Di-HCl 0.5 MG Tablet PO ×2 (00:28→21:41)
[2019-06-23] MEDS: DULoxetine Hcl 60 MG Capsule PO ×2 (00:29→21:41)
[2019-06-23] MEDS: amLODIPine 10 MG Tablet PO ×2 (00:29→21:41)
[2019-06-23] MEDS: Insulin Lispro 100 UNIT/ML INSULN.PEN SC ×5 (00:33→21:38)
[2019-06-23 00:40] LABS: Bedside Glucose 242 mg/dL (70-110)
[2019-06-23 05:52] LABS: Absolute Lymphocyte Count 0.56 X10^3/uL (0.83-4.51); Absolute Neutrophil Count 4.7 X10^3/uL (2.0-7.7); Basophil# 0.02 X10^3/uL; Basophil% 0.4 % (0-1); Hematocrit 41.9 % (37-47); Hemoglobin 12.4 g/dL (12.0-15.0); Lymphocyte # 0.56 X10^3/ul (4.0); Mean Corp Hgb Conc 29.6 g/dL (32-36); Mean Corpuscular Hgb 24.4 pg (27.0-32.0); Mean Corpuscular Volume 82.5 fL (81-99); Mean Platelet Vol. 9.5 fl (6.2-12.0); Monocyte# 0.21 X10^3/uL; Monocyte% 3.8 % (0-10); NRBC Flagged by Analyzer 0 % (0-5); Neutrophil # 4.68 X10^3/uL (2.7-7.7); Neutrophil % 83.8 % (47-70); POSITIVE DIFFERENTIAL YES; Platelet Count 263 K/mm3 (150-450); RBC Distribution Width CV 14.6 % (11.6-14.6); RBC Distribution Width SD 43.3 fl (35.1-43.9); Red Blood Count 5.08 M/mm3 (4.2-5.4); White Blood Count 5.6 K/mm3 (4.4-11.0)
[2019-06-23 06:13] LABS: Anion Gap 7 (5-15); BUN 19 mg/dL (7-18); BUN/Creat Ratio 18.3 RATIO (10-20); Calcium,Total 8.6 mg/dL (8.5-10.1); Chloride 103 mmol/L (98-107); Creatinine, Serum 1.04 mg/dL (0.55-1.02); EST Glomerular Filtration Rate 57 mL/min (>60); Est Glom Filt Rate - Afr Amer 69 mL/min (>60); Estimated Creatinine Clearance 49.05 ml/min; Glucose 276 mg/dL (74-106); Potassium 4.5 mmol/L (3.5-5.1); Sodium Level 137 mmol/L (136-145)
[2019-06-23 06:25] LABS: Differential Indicated SCAN CRITERIA MET
[2019-06-23 06:33] LABS: Differential Comment SCANNED
[2019-06-23 06:51] LABS: Bedside Glucose 298 mg/dL (70-110)
[2019-06-23] MEDS: predniSONE 20 MG Tablet 40 MG PO (09:45)
[2019-06-23] MEDS: Lisinopril 40 MG Tablet PO ×2 (09:45)
[2019-06-23] MEDS: Atenolol 50 MG Tablet PO (09:45)
[2019-06-23] MEDS: Pantoprazole Sodium 40 MG Tablet PO (09:45)
[2019-06-23] MEDS: glipiZIDE XL 5 MG Tablet 10 MG PO (09:45)
[2019-06-23] MEDS: Enoxaparin 40 MG/0.4 ML Syringe SC (09:46)
--- NOTE | 2019-06-23 11:10 | PN_ITS ---
<John Brito - Last Filed: 06/23/19 11:10> Patient Problems: Active and Suspected Problems Influenza A (Acute) Hypoxia (Acute) Reactive airway disease (Acute) Viral syndrome (Acute) Reason for Visit: SOB Subjective: SOB improved, still mild. Pt on O2. She does not wear this at home. She denies a hx of COPD or asthma, or lung disease. She is a former smoker 30 years. She is still very wheezy and has a nonproductive cough. No fever/chills. She has Flu A, she did have flu shot. Vitals/I&O's: Vital Signs Temp Pulse Resp BP Pulse Ox 97.3 F L 109 H 18 135/76 H 93 06/23/19 09:29 06/23/19 10:00 06/23/19 09:29 06/23/19 09:29 06/23/19 10:00 Oxygen Flow Rate (L/min) 2 Oxygen Delivery Method Nasal Cannula Weight: 240 lb Body Mass Index (BMI) 40.5 Intake and Output for Last 24 Hours 06/21/19 06/22/19 06/23/19 23:59 23:59 23:59 Intake Total 1000 / 1300 600 / 600 Output Total 0 / 0 Balance 1000 / 1300 600 / 600 General: Alert, Oriented x3, Cooperative HEENT: Atraumatic, PERRLA, EOMI, Normocephalic Neck: Supple, No JVD, Negative Carotid Bruits Lungs: Normal air movement, Rales, Wheezes Cardiovascular: Regular rate, No murmurs Abdomen: Bowel Sounds Present, Soft, Non Tender, Obese Extremities: No edema, Capillary Refill Less than 3 Seconds Skin: No rashes, No breakdown Musculoskeletal: No Tenderness to Palpation of Joints or Extremities Neurological: Cranial nerves II-XII grossly intact Psych/Mental Status: Normal Affect, Appropriate, Alert and oriented to time, place, person, mood and affect Microbiology Past 72 Hours 06/22/19 21:29 Mucosa - Nasopharyngeal Respiratory Panel (PCR) - Final Influenza A (Subtype H1) 06/22/19 21:29 Mucosa - Nasopharyngeal Influenza Types A,B Direct FA (MIKAEL) - Final Influenzae A Laboratory Results 06/22/19 17:55: WBC 7.0, RBC 5.25, Hgb 13.0, Hct 43.1, MCV 82.1, MCH 24.8 L, MCHC 30.2 L, RDW Std Deviation 43.6, RDW Coeff of Moris 14.6, Plt Count 303, MPV 9.9, Immature Gran % (Auto) 1.800 H, Neut % (Auto) 65.2, Lymph % (Auto) 17.8 L, Mason % (Auto) 14.2 H, Eos % (Auto) 0.6, Baso % (Auto) 0.4, Absolute Neuts (auto) 4.6, Absolute Lymphs (auto) 1.25, Nucleated RBC % 0 06/22/19 17:55: Sodium 136, Potassium 4.1, Chloride 101, Carbon Dioxide 31.0, Anion Gap 4 L, BUN 19 H, Creatinine 1.23 H, Estim Creat Clear Calc 41.48, Est GFR (MDRD) Af Amer 57 L, Est GFR (MDRD) Non-Af 47 L, BUN/Creatinine Ratio 15.4, Glucose 175 H, Calcium 8.8, Total Bilirubin 0.10 L, AST 51 H, ALT 32, Alkaline Phosphatase 101, Total Protein 7.6, Albumin 3.3, Globulin 4.3 H, Albumin/Globulin Ratio 0.8 L 06/22/19 17:55: Lactic Acid 1.6 06/22/19 19:40: Urine Color Yellow, Urine Clarity Clear, Urine pH 5.0, Ur Specific Carney 1.025, Urine Protein 30 H, Urine Glucose (UA) Normal, Urine Ketones 15 H, Urine Occult Blood Negative, Urine Nitrite Positive H, Urine Bilirubin Negative, Urine Urobilinogen Normal, Ur Leukocyte Esterase 25 H, Urine RBC 0 SEEN, Urine WBC 0-5 SEEN, Ur Squamous Epith Cells 0-5 SEEN, Urine Bacteria RARE, Hyaline Casts 0-5 SEEN, Urine Mucus 0 SEEN 06/23/19 00:25: POC Glucose 242 H 06/23/19 05:40: WBC 5.6, RBC 5.08, Hgb 12.4, Hct 41.9, MCV 82.5, MCH 24.4 L, MCHC 29.6 L, RDW Std Deviation 43.3, RDW Coeff of Moris 14.6, Plt Count 263, MPV 9.5, Immature Gran % (Auto) 2.000 H, Neut % (Auto) 83.8 H, Lymph % (Auto) 10.0 L , Mason % (Auto) 3.8, Eos % (Auto) 0.0, Baso % (Auto) 0.4, Absolute Neuts (auto) 4.7, Absolute Lymphs (auto) 0.56 L, Nucleated RBC % 0, Differential Comment SCANNED 06/23/19 05:40: Sodium 137, Potassium 4.5, Chloride 103, Carbon Dioxide 27.0, Anion Gap 7, BUN 19 H, Creatinine 1.04 H, Estim Creat Clear Calc 49.05, Est GFR (MDRD) Af Amer 69, Est GFR (MDRD) Non-Af 57 L, BUN/Creatinine Ratio 18.3, Glucose 276 H, Calcium 8.6 06/23/19 06:42: POC Glucose 298 H Current Medications Acetaminophen (Tylenol) 650 mg PO Q6H PRN PRN PRN Reason: Pain Score 1-10/Temp > 100.7 F Albuterol Sulfate (Ventolin Aerosols) 2.5 mg INHALATION Q2H PRN PRN PRN Reason: Shortness of Breath/Wheezing Albuterol/Ipratropium (Duoneb) 3 ml INHALATION Q4HWA.RT [facility] Last Admin: 06/23/19 10:58 Dose: 3 ml Documented by: Amlodipine Besylate (Norvasc) 10 mg PO QHS [facility] Last Admin: 06/23/19 00:29 Dose: 10 mg Documented by: Atenolol (Tenormin (Beta Negin)) 50 mg PO DAILY [facility] Last Admin: 06/23/19 09:45 Dose: 50 mg Documented by: Cyclobenzaprine HCl (Flexeril) 10 mg PO TID PRN PRN PRN Reason: MUSCLE SPASMS Duloxetine HCl (Cymbalta) 60 mg PO QHS [facility] Last Admin: 06/23/19 00:29 Dose: 60 mg Documented by: Enoxaparin Sodium (Lovenox) 40 mg SC DAILY [facility] Last Admin: 06/23/19 09:46 Dose: 40 mg Documented by: [facility] ([facility]l) [facility] Last Admin: 06/23/19 09:45 Dose: 10 mg Documented by: Glucagon () 1 mg IM .X1 PRN PRN Reason: Hypoglycemia Guaifenesin (Mucinex) 1,200 mg PO BID [facility] Last Admin: 06/23/19 09:46 Dose: 1,200 mg Documented by: Sodium Chloride () 250 mls @ 15 mls/hr IV .[id number] PRN PRN Reason: Saline Flush Sodium Chloride () 250 mls @ 15 mls/hr IV .[id number] PRN PRN Reason: Additional IVPB Infusion Dextrose (Dextrose 10%-Water) 250 mls @ 999 mls/hr IV .Q16M PRN; Protocol PRN Reason: HYPOGLYCEMIA Insulin Human Lispro (Humalog Kwikpen (Bkc)) 0 unit SC ACHS [facility]; Protocol Last Admin: 06/23/19 06:44 Dose: 6 u Documented by: Lisinopril (Zestril) 40 mg PO DAILY [facility] Last Admin: 06/23/19 09:45 Dose: 40 mg Documented by: Ondansetron HCl (Zofran) 4 mg IV Q8H PRN PRN PRN Reason: NAUSEA/VOMITING Oseltamivir Phosphate (Tamiflu) 30 mg PO BID [facility] Stop: 06/27/19 10:01 Last Admin: 06/23/19 09:46 Dose: 30 mg Documented by: Pantoprazole Sodium (Protonix) 40 mg PO DAILY [facility] Last Admin: 06/23/19 09:45 Dose: 40 mg Documented by: Pramipexole Dihydrochloride (Mirapex) 0.5 mg PO QHS [facility] Last Admin: 06/23/19 00:28 Dose: 0.5 mg Documented by: Prednisone () 40 mg PO DAILY@0800 [facility] Last Admin: 06/23/19 09:45 Dose: 40 mg Documented by: Sodium Chloride () 10 - 40 ml IV UD PRN PRN Reason: SALINE FLUSH STROKE Vital Signs/Narrative: Vital Signs Temp Pulse Resp BP Pulse Ox 06/23/19 10:00 109 H 93 06/23/19 09:29 97.3 F L 111 H 18 135/76 H 93 Medical Necessity - Tobacco Use Smoking Status: Former smoker Assessment/Plan All Active Problems Influenza A (Acute) Hypoxia (Acute) Reactive airway disease (Acute) Viral syndrome (Acute) 1. Acute influenza A viral syndrome - still very wheezy and requiring O2. Mild tachy. No fever / leukocytosis. Give solumedrol and aerosols, PEP and IS. Suspect underlying lung disease - 30 year smoker. Needs PFTs as o/p. Continue tamiflu. 2. HTN - mildly elevated. 3. DMt2 with morbid obesity - fluctuant likely due to steroids. Continue current meds + SSI. 4. Chronic back pain - cymbalta, cyclobenzaprine 5. Abnormal LFTs - mild. follow up with PCP, recheck CMP after DC. 6. CKDIII - improved. 7. RLS - mirapex DVT ppx: lovenox DC planning: wean o2, possibly home tomorrow. This patient was seen by John Brito PA-C under the supervision of Dr. Schmid <Osman Schmid - Last Filed: 06/23/19 14:27> Reason for Visit: Shortness of breath, influenza A. Possible COPD exacerbation Subjective: Patient has history of smoking of 32 pack years. Patient already quit about 14 years ago. Complaint of shortness of breath, wheezing, cough and bronchitis symptoms. Influenza A positive. Vitals/I&O's: Vital Signs Temp Pulse Resp BP Pulse Ox 97.3 F L 105 H 20 H 135/76 H 93 06/23/19 09:29 06/23/19 10:58 06/23/19 10:58 06/23/19 09:29 06/23/19 10:00 Oxygen Flow Rate (L/min) 2 Oxygen Delivery Method Nasal Cannula Weight: 240 lb Body Mass Index (BMI) 40.5 Intake and Output for Last 24 Hours 06/21/19 06/22/19 06/23/19 23:59 23:59 23:59 Intake Total 1000 / 1300 1040 / 1040 Output Total 0 / 0 Balance 1000 / 1300 1040 / 1040 General: Alert, Oriented x3, Cooperative HEENT: Atraumatic, PERRLA, EOMI, Normocephalic Neck: Supple, No JVD, Negative Carotid Bruits Lungs: Rales, Rhonchi, Short of Breath, Wheezes Cardiovascular: Regular rate, Regular Rhythm, Normal S1, Normal S2, No murmurs Abdomen: Bowel Sounds Present, Soft, Non Tender, Non-Distended Extremities: No edema, Capillary Refill Less than 3 Seconds Skin: No rashes, No breakdown Musculoskeletal: No Tenderness to Palpation of Joints or Extremities, Arthritic Changes Neurological: Cranial nerves II-XII grossly intact, Deep Tendon Reflexes 2+/4 and Symmetrical, Neuro grossly intact Psych/Mental Status: Normal Affect, Appropriate Microbiology Past 72 Hours 06/22/19 21:29 Mucosa - Nasopharyngeal Respiratory Panel (PCR) - Final Influenza A (Subtype H1) 06/22/19 21:29 Mucosa - Nasopharyngeal Influenza Types A,B Direct FA (MIKAEL) - Final Influenzae A Laboratory Results 06/22/19 17:55: WBC 7.0, RBC 5.25, Hgb 13.0, Hct 43.1, MCV 82.1, MCH 24.8 L, MCHC 30.2 L, RDW Std Deviation 43.6, RDW Coeff of Moris 14.6, Plt Count 303, MPV 9.9, Immature Gran % (Auto) 1.800 H, Neut % (Auto) 65.2, Lymph % (Auto) 17.8 L, Mason % (Auto) 14.2 H, Eos % (Auto) 0.6, Baso % (Auto) 0.4, Absolute Neuts (auto) 4.6, Absolute Lymphs (auto) 1.25, Nucleated RBC % 0 06/22/19 17:55: Sodium 136, Potassium 4.1, Chloride 101, Carbon Dioxide 31.0, Anion Gap 4 L, BUN 19 H, Creatinine 1.23 H, Estim Creat Clear Calc 41.48, Est GFR (MDRD) Af Amer 57 L, Est GFR (MDRD) Non-Af 47 L, BUN/Creatinine Ratio 15.4, Glucose 175 H, Calcium 8.8, Total Bilirubin 0.10 L, AST 51 H, ALT 32, Alkaline Phosphatase 101, Total Protein 7.6, Albumin 3.3, Globulin 4.3 H, Albumin/Globulin Ratio 0.8 L 06/22/19 17:55: Lactic Acid 1.6 06/22/19 19:40: Urine Color Yellow, Urine Clarity Clear, Urine pH 5.0, Ur Specific Carney 1.025, Urine Protein 30 H, Urine Glucose (UA) Normal, Urine Ketones 15 H, Urine Occult Blood Negative, Urine Nitrite Positive H, Urine Bilirubin Negative, Urine Urobilinogen Normal, Ur Leukocyte Esterase 25 H, Urine RBC 0 SEEN, Urine WBC 0-5 SEEN, Ur Squamous Epith Cells 0-5 SEEN, Urine Bacteria RARE, Hyaline Casts 0-5 SEEN, Urine Mucus 0 SEEN 06/23/19 00:25: POC Glucose 242 H 06/23/19 05:40: WBC 5.6, RBC 5.08, Hgb 12.4, Hct 41.9, MCV 82.5, MCH 24.4 L, MCHC 29.6 L, RDW Std Deviation 43.3, RDW Coeff of Moris 14.6, Plt Count 263, MPV 9.5, Immature Gran % (Auto) 2.000 H, Neut % (Auto) 83.8 H, Lymph % (Auto) 10.0 L , Mason % (Auto) 3.8, Eos % (Auto) 0.0, Baso % (Auto) 0.4, Absolute Neuts (auto) 4.7, Absolute Lymphs (auto) 0.56 L, Nucleated RBC % 0, Differential Comment SCANNED 06/23/19 05:40: Sodium 137, Potassium 4.5, Chloride 103, Carbon Dioxide 27.0, Anion Gap 7, BUN 19 H, Creatinine 1.04 H, Estim Creat Clear Calc 49.05, Est GFR (MDRD) Af Amer 69, Est GFR (MDRD) Non-Af 57 L, BUN/Creatinine Ratio 18.3, Glucose 276 H, Calcium 8.6 06/23/19 06:42: POC Glucose 298 H 06/23/19 11:40: POC Glucose 336 H Current Medications Acetaminophen (Tylenol) 650 mg PO Q6H PRN PRN PRN Reason: Pain Score 1-10/Temp > 100.7 F Albuterol Sulfate (Ventolin Aerosols) 2.5 mg INHALATION Q2H PRN PRN PRN Reason: Shortness of Breath/Wheezing Albuterol/Ipratropium (Duoneb) 3 ml INHALATION Q4HWA.RT [facility] Last Admin: 06/23/19 10:58 Dose: 3 ml Documented by: Amlodipine Besylate (Norvasc) 10 mg PO QHS [facility] Last Admin: 06/23/19 00:29 Dose: 10 mg Documented by: Atenolol (Tenormin (Beta Negin)) 50 mg PO DAILY [facility] Last Admin: 06/23/19 09:45 Dose: 50 mg Documented by: Cyclobenzaprine HCl (Flexeril) 10 mg PO TID PRN PRN PRN Reason: MUSCLE SPASMS Duloxetine HCl (Cymbalta) 60 mg PO QHS [facility] Last Admin: 06/23/19 00:29 Dose: 60 mg Documented by: Enoxaparin Sodium (Lovenox) 40 mg SC DAILY [facility] Last Admin: 06/23/19 09:46 Dose: 40 mg Documented by: Glipizide (Glucotrol Xl) [facility] Last Admin: 06/23/19 09:45 Dose: 10 mg Documented by: Glucagon () 1 mg IM .X1 PRN PRN Reason: Hypoglycemia Guaifenesin (Mucinex) 1,200 mg PO BID [facility] Last Admin: 06/23/19 09:46 Dose: 1,200 mg Documented by: Sodium Chloride () 250 mls @ 15 mls/hr IV .[id number] PRN PRN Reason: Saline Flush Sodium Chloride () 250 mls @ 15 mls/hr IV .[id number] PRN PRN Reason: Additional IVPB Infusion Dextrose (Dextrose 10%-Water) 250 mls @ 999 mls/hr IV .Q16M PRN; Protocol PRN Reason: HYPOGLYCEMIA Insulin Human Lispro (Humalog Kwikpen (Bkc)) 0 unit SC ACHS [facility]; Protocol Last Admin: 06/23/19 12:38 Dose: 8 u Documented by: Lisinopril (Zestril) 40 mg PO DAILY [facility] Last Admin: 06/23/19 09:45 Dose: 40 mg Documented by: Methylprednisolone (Solu-Medrol) 40 mg IV Q12 [facility] Ondansetron HCl (Zofran) 4 mg IV Q8H PRN PRN PRN Reason: NAUSEA/VOMITING Oseltamivir Phosphate (Tamiflu) 30 mg PO BID [facility] Stop: 06/27/19 10:01 Last Admin: 06/23/19 09:46 Dose: 30 mg Documented by: Pantoprazole Sodium (Protonix) 40 mg PO DAILY [facility] Last Admin: 06/23/19 09:45 Dose: 40 mg Documented by: Pramipexole Dihydrochloride (Mirapex) 0.5 mg PO QHS [facility] Last Admin: 06/23/19 00:28 Dose: 0.5 mg Documented by: Sodium Chloride () 10 - 40 ml IV UD PRN PRN Reason: SALINE FLUSH STROKE Vital Signs/Narrative: Vital Signs Pulse Resp 06/23/19 10:58 105 H 20 H Assessment/Plan This patient was seen in conjunction with John DUKES. I have independently interviewed and examined the patient and reviewed pertinent history, examination findings, laboratory and plan of management. I have reviewed the note and agree with the documented findings with the few additional points. In brief, patient is 59-year-old female with past history of smoking came to ER with shortness of breath associated with nonproductive cough, vomiting and diarrhea. Patient reported loose bowel movement with coughing but no blood. Patient possibly has COPD exacerbation secondary to influenza A viral bronchitis. No fever or chills. Started on Tamiflu, bronchodilator, IV Solu- Medrol, chest physiotherapy and incentive spirometry. Advised outpatient PFT pulmonary clinic. On Tamiflu. Acute gastroenteritis probably secondary to flu: Patient not on laxative. Not on antibiotic. Stool for C. difficile and enteric bacteriology panel ordered. Diabetes mellitus type 2: Glucose is between 250-350. Insulin dose titrated up. Increase in AST, globulin 4.3, A/G ratio 0.8 probably secondary to acute inflammatory reaction secondary to influenza. Rest comorbidities as mentioned above Total time of the visit including total time spent in counseling or coordination of care, (more than 50% of the total time, spent in obtaining medical information from nurses and other ancillary care providers), , review of labs and imaging is 30 minutes I have discussed my assessment with John DUKES and orders have been reviewed. Code Visit Inpatient E&M: 95799 Subs Hosp L3
[2019-06-23 11:46] LABS: Bedside Glucose 336 mg/dL (70-110)
[2019-06-23 17:01] LABS: Bedside Glucose 286 mg/dL (70-110)
[2019-06-23] MEDS: 0.9% Saline Lock 10 ML Syringe IV (21:43)
[2019-06-23 21:55] LABS: Bedside Glucose 365 mg/dL (70-110)
[2019-06-24] VITALS (8 sets, daily range): BP systolic 137–145; BP diastolic 63–76; PULSE 88–101; RESP 16–20; TEMP 36.6–36.7; O2SAT 93–96
[2019-06-24] MEDS: Insulin Lispro 100 UNIT/ML INSULN.PEN SC ×2 (06:29→11:35)
[2019-06-24 06:35] LABS: Bedside Glucose 287 mg/dL (70-110)
[2019-06-24] MEDS: Ipratropium/Albuterol Sulfate 3 ML AMPUL.NEB INHALATION ×3 (07:36→14:57)
[2019-06-24] MEDS: Atenolol 50 MG Tablet PO (09:06)
[2019-06-24] MEDS: guaiFENesin 1,200 MG Tablet 1200 MG PO (09:06)
[2019-06-24] MEDS: Enoxaparin 40 MG/0.4 ML Syringe SC (09:06)
[2019-06-24] MEDS: Pantoprazole Sodium 40 MG Tablet PO (09:06)
[2019-06-24] MEDS: glipiZIDE XL 5 MG Tablet 10 MG PO (09:06)
[2019-06-24] MEDS: Oseltamivir Phosphate 30 MG Capsule PO (09:08)
--- NOTE | 2019-06-24 11:11 | PCM.DC ---
- Discharge Diagnoses Current Active Problems: Current Active and Chronic Problems Influenza A (Acute) Hypoxia (Acute) Reactive airway disease (Acute) Viral syndrome (Acute) You will use the following diet at home:: Calorie/Carbohydrate Controlled (specify 1200, 1400, etc) - 1800 tom / day, Cardiac Your food should be the consistency of: Regular Your liquids should be the consistency of: Regular/Thin Discharge Activity: Return to Normal Activity, - - avoid all smoke exposure Call your doctor if you observe: Fever of 101 or Higher, Shortness of breath Additional Instructions: You need to discuss having pulmonary function testing done with your PCP. Allergies/Adverse Reactions: Allergies Penicillins Allergy (Verified 04/08/18 11:04) Hives Medications to take at Discharge Atenolol [Tenormin (beta mine)] 50 mg PO DAILY 06/08/14 Esomeprazole Mag Trihydrate [Nexium] 40 mg PO DAILY 06/08/14 Lisinopril [Zestril] 40 mg PO DAILY 06/08/14 Amlodipine [Norvasc] 10 mg PO QHS 04/08/18 Duloxetine Hcl [Cymbalta] 60 mg PO QHS 04/08/18 Pramipexole Di-HCl [Mirapex] 0.5 mg PO QHS 04/08/18 metFORMIN HCl [Glucophage] 1,000 mg PO BIDCM 04/08/18 Cyclobenzaprine HCl 10 mg PO TID PRN PRN 06/22/19 Dulaglutide [Trulicity] 1.5 injectable SQ WEBSTER 06/22/19 Glipizide [Glipizide Xl] 10 mg PO DAILY 06/22/19 Albuterol IH (ProAir) [Proair Hfa] 1 puff INHALATION Q4H PRN PRN #1 inhaler 06/24/19 Oseltamivir Phosphate [Tamiflu] 30 mg PO BID #6 cap 06/24/19 Prednisone 10 mg PO UD #30 tab 06/24/19 The following prescriptions were given: Prednisone 10 mg PO UD #30 tab Transmission Status: Sent to [facility] Albuterol IH (ProAir) [Proair Hfa] 1 puff INHALATION Q4H PRN PRN #1 inhaler PRN Reason: Sob &/Or Wheezing Transmission Status: Sent to [facility] Oseltamivir Phosphate [Tamiflu] 30 mg PO BID #6 cap Transmission Status: Sent to [facility] Primary Care Physician: Kate Spencer DO [Primary Care Provider] - Please follow up with your Primary Care Physician in: 1 week Test Results: Test results from this visit will be discussed in further detail at your follow-up appointment, if applicable. Proposed Discharge Date: 06/24/19
[2019-06-24 11:45] LABS: Bedside Glucose 313 mg/dL (70-110)
--- NOTE | 2019-06-24 13:38 | PCM.DC.SUM ---
<John Brito - Last Filed: 06/24/19 13:38> Discharge Date and Diagnosis - Problem List Patient Problems: Active and Suspected Problems Influenza A (Acute) Hypoxia (Acute) Reactive airway disease (Acute) Viral syndrome (Acute) Date of Admission: 06/22/19 Date of Discharge: 06/24/19 - Primary Discharge Diagnosis Active and Suspected Problems Acute Influenza A viral syndrome Hypoxia 2/2 above - resolved Suspected underlying reactive lung disease - acute exacerbation Second hand smoke exposure Former smoker Abnormal LFTs CKDIII Dmt2 with morbid obesity HTN RLS - Secondary Discharge Diagnosis Chronic Problems Spondylosis of lumbar region without myelopathy or radiculopathy (Chronic) Low back pain (Chronic) Low back pain (Chronic) Hospital Course and Treatment Imaging Results: RAD/Chest PA and Lateral IMPRESSION: Stable, nonacute x-ray examination of the chest. Operations: None Procedures: None Summary of Care Provided: Hospital Course: The patient is a 59 year old F with pmhx as above who presented to the ER with c/o shortness of breath, cough, nausea, vomiting, diarrhea, and wheezing. 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 Patient was found to be hypoxic in the ER with 87% on room air at rest, 84% with ambulation. She was wheezy, with a negative chest x-ray, no fever or leukocytosis. Influenza a was positive. She was admitted to the medical surgical floor for acute influenza A viral syndrome, suspected underlying lung disease with acute exacerbation. She was started on tamiflu, steroids, and aerosols. She initially required 3 lpm o2. This was able to be weaned off over the next two days. She was able to be ambulated off O2. She was transitioned to an oral prednisone taper, and discharged home to continue a course of tamiflu, and to use an albuterol inhaler as needed. I strongly advised her to avoid all smoke exposure. I also recommended with her hx of smoking and ongoing secondhand smoke exposure that she pursue pulmonary function testing, and that she should discuss this with her PCP at follow-up. She should follow-up with her PCP in 1 week. Also of note when she follows up with her PCP she should have a CMP rechecked as she had a slight abnormality in her LFTs, her AST was 51, while here which could be rechecked as an outpatient. She was discharged home in stable condition. This patient was seen by John Brito PA-C under the supervision of Doctor Juan C. [] Patient Problems: Active and Suspected Problems Influenza A (Acute) Hypoxia (Acute) Reactive airway disease (Acute) Viral syndrome (Acute) - Physical Exam Vitals/I&O's: Vital Signs Temp Pulse Resp BP Pulse Ox 98.1 F 88 20 H 138/76 H 93 06/24/19 09:00 06/24/19 10:52 06/24/19 10:52 06/24/19 09:00 06/24/19 10:04 Oxygen Flow Rate (L/min) 2 Oxygen Delivery Method Room Air Weight: 240 lb Body Mass Index (BMI) 40.5 Intake and Output for Last 24 Hours 06/22/19 06/23/19 06/24/19 23:59 23:59 23:59 Intake Total 1000 / 1300 1040 / 1340 1280 / 1280 Output Total 0 / 0 Balance 1000 / 1300 1040 / 1340 1280 / 1280 General: Alert, Oriented x3, Cooperative HEENT: Atraumatic, PERRLA, EOMI, Normocephalic Neck: Supple, No JVD, Negative Carotid Bruits Lungs: Normal air movement, Wheezes Cardiovascular: Regular rate, No murmurs Abdomen: Bowel Sounds Present, Soft, Non Tender, Obese Extremities: No edema, Capillary Refill Less than 3 Seconds Skin: No rashes, No breakdown Musculoskeletal: No Tenderness to Palpation of Joints or Extremities Neurological: Cranial nerves II-XII grossly intact Psych/Mental Status: Normal Affect, Appropriate Microbiology Past 72 Hours 06/23/19 17:50 Stool Enteric Bacteriology - Final 06/23/19 17:50 Stool C. difficile DNA Amplification - Final 06/23/19 17:50 Stool Stool Occult Blood (MIKAEL) - Final 06/23/19 17:50 Stool Stool Lactoferrin - Final 06/22/19 21:29 Mucosa - Nasopharyngeal Respiratory Panel (PCR) - Final Influenza A (Subtype H1) 06/22/19 21:29 Mucosa - Nasopharyngeal Influenza Types A,B Direct FA (MIKAEL) - Final Influenzae A Laboratory Results 06/23/19 16:51: POC Glucose 286 H 06/23/19 21:35: POC Glucose 365 H 06/24/19 06:27: POC Glucose 287 H 06/24/19 11:32: POC Glucose 313 H Current Medications Acetaminophen (Tylenol) 650 mg PO Q6H PRN PRN PRN Reason: Pain Score 1-10/Temp > 100.7 F Albuterol Sulfate (Ventolin Aerosols) 2.5 mg INHALATION Q2H PRN PRN PRN Reason: Shortness of Breath/Wheezing Albuterol/Ipratropium (Duoneb) 3 ml INHALATION Q4HWA.RT [facility] Last Admin: 06/24/19 10:52 Dose: 3 ml Documented by: Amlodipine Besylate (Norvasc) 10 mg PO QHS [facility] Last Admin: 06/23/19 21:41 Dose: 10 mg Documented by: Atenolol (Tenormin (Beta Negin)) 50 mg PO DAILY [facility] Last Admin: 06/24/19 09:06 Dose: 50 mg Documented by: Cyclobenzaprine HCl (Flexeril) 10 mg PO TID PRN PRN PRN Reason: MUSCLE SPASMS Duloxetine HCl (Cymbalta) 60 mg PO QHS [facility] Last Admin: 06/23/19 21:41 Dose: 60 mg Documented by: Enoxaparin Sodium (Lovenox) 40 mg SC DAILY [facility] Last Admin: 06/24/19 09:06 Dose: 40 mg Documented by: [facility]) [facility] Last Admin: 06/24/19 09:06 Dose: 10 mg Documented by: Glucagon () 1 mg IM .X1 PRN PRN Reason: Hypoglycemia Guaifenesin (Mucinex) 1,200 mg PO BID [facility] Last Admin: 06/24/19 09:06 Dose: 1,200 mg Documented by: Sodium Chloride () 250 mls @ 15 mls/hr IV .[id number] PRN PRN Reason: Saline Flush Sodium Chloride () 250 mls @ 15 mls/hr IV .[id number] PRN PRN Reason: Additional IVPB Infusion Dextrose (Dextrose 10%-Water) 250 mls @ 999 mls/hr IV .Q16M PRN; Protocol PRN Reason: HYPOGLYCEMIA Insulin Human Lispro (Humalog Kwikpen (Bkc)) 0 unit SC ACHS [facility]; Protocol Last Admin: 06/24/19 11:35 Dose: 6 u Documented by: Lisinopril (Zestril) 40 mg PO DAILY [facility] Last Admin: 06/23/19 09:45 Dose: 40 mg Documented by: Methylprednisolone (Solu-Medrol) 40 mg IV Q12 [facility] Last Admin: 06/24/19 09:06 Dose: 40 mg Documented by: Ondansetron HCl (Zofran) 4 mg IV Q8H PRN PRN PRN Reason: NAUSEA/VOMITING Oseltamivir Phosphate (Tamiflu) 30 mg PO BID [facility] Stop: 06/27/19 10:01 Last Admin: 06/24/19 09:08 Dose: 30 mg Documented by: Pantoprazole Sodium (Protonix) 40 mg PO DAILY [facility] Last Admin: 06/24/19 09:06 Dose: 40 mg Documented by: Pramipexole Dihydrochloride (Mirapex) 0.5 mg PO QHS [facility] Last Admin: 06/23/19 21:41 Dose: 0.5 mg Documented by: Sodium Chloride () 10 - 40 ml IV UD PRN PRN Reason: SALINE FLUSH Last Admin: 06/23/19 21:43 Dose: 10 ml Documented by: Discharge Diet: Low fat/ Low Cholesterol, 1800 Calorie Control Diet, 2000 mg Sodium Diet Discharge Activity: Return to Normal Activity, - - avoid all smoke exposure Call your doctor if you observe: Fever of 101 or Higher, Shortness of breath Home Medications: Medications to take at Discharge Atenolol [Tenormin (beta negin)] 50 mg PO DAILY 06/08/14 Esomeprazole Mag Trihydrate [Nexium] 40 mg PO DAILY 06/08/14 Lisinopril [Zestril] 40 mg PO DAILY 06/08/14 Amlodipine [Norvasc] 10 mg PO QHS 04/08/18 Duloxetine Hcl [Cymbalta] 60 mg PO QHS 04/08/18 Pramipexole Di-HCl [Mirapex] 0.5 mg PO QHS 04/08/18 metFORMIN HCl [Glucophage] 1,000 mg PO BIDCM 04/08/18 Cyclobenzaprine HCl 10 mg PO TID PRN PRN 06/22/19 Dulaglutide [Trulicity] 1.5 injectable SQ WEBSTER 06/22/19 Glipizide [Glipizide Xl] 10 mg PO DAILY 06/22/19 Albuterol IH (ProAir) [Proair Hfa] 1 puff INHALATION Q4H PRN PRN #1 inhaler 06/24/19 Oseltamivir Phosphate [Tamiflu] 30 mg PO BID #6 cap 06/24/19 Prednisone 10 mg PO UD #30 tab 06/24/19 Following Prescrptions Were Given to Patient: Prednisone 10 mg PO UD #30 tab Transmission Status: Received by [facility] Albuterol IH (ProAir) [Proair Hfa] 1 puff INHALATION Q4H PRN PRN #1 inhaler PRN Reason: Sob &/Or Wheezing Transmission Status: Received by [facility] Oseltamivir Phosphate [Tamiflu] 30 mg PO BID #6 cap Transmission Status: Received by [facility] Primary Care Physician: Kate Spencer DO [Primary Care Provider] - Please follow up with your Primary Care Physician in: 1 week Disposition: Home Minutes spent on discharge:: 35 Patient Condition:: Stable Medical Necessity - Tobacco Use Smoking Status: Former smoker Meaningful Use Info Meaningful Use Diagnoses (Choose all that apply): None applicable <Leslie Irizarry - Last Filed: 06/24/19 16:45> Discharge Date and Diagnosis - Primary Discharge Diagnosis Active and Suspected Problems Influenza A (Acute) Hypoxia (Acute) Reactive airway disease (Acute) Viral syndrome (Acute) - Secondary Discharge Diagnosis Chronic Problems Spondylosis of lumbar region without myelopathy or radiculopathy (Chronic) Low back pain (Chronic) Low back pain (Chronic) Hospital Course and Treatment Summary of Care Provided: Patient seen by John Brito PA-C under my supervision The patient is a 59 year old F with a past medical history as above was admitted via the ED on 06/22/2019 with a complaint of shortness of breath, cough, nausea vomiting diarrhea and wheezing. He also had a history of smoking for about 30 years. On admission the ED was found to be hypoxic and saturating at 87% on room air. He also had wheezing. Chest x-ray showed no evidence of pneumonia. Respiratory panel done was positive for influenza A. She was admitted and managed for acute influenza infection. Was also suspected that she likely had COPD due to her chronic history of smoking and this may be an exacerbation. She was started on Tamiflu, steroids and aerosols. She was also put on 3 L of oxygen on account of hypoxia. She was gradually weaned off of oxygen was able to ambulate off oxygen. She did not require home oxygen. Patient remained stable and was discharged home on 06/24/2019 prescription for Tamiflu. She was counseled to quit smoking and to also follow-up with pulmonology and a lung doctor for PFTs to assess if she has COPD. Patient was seen and examined prior to discharge. She felt much better and had no complaints. Shortness of breath and wheezing had improved. Review systems otherwise negative. Labs and vitals reviewed. Home medication reviewed and reconciled. o/e: Vital Signs Height 5 ft 4.5 in Weight: 240 lb Weight in Pounds 240.0 lbs Pulse Ox [AMBULATING on Room 94 Air] Pulse Ox [At REST on Room Air] 93 Pulse Ox 93 Temperature 98.1 F Pulse Rate 95 Respiratory Rate 18 Blood Pressure 145/63 Blood Pressure Position Semi-Fowlers [] General: Alert, Oriented x3, Cooperative HEENT: Atraumatic, PERRLA, EOMI, Normocephalic Neck: Supple, No JVD, Negative Carotid Bruits Lungs: Normal air movement, minimal wheezing, no crackles. weaned off of oxygen. Cardiovascular: Regular rate, No murmurs Abdomen: Bowel Sounds Present, Soft, Non Tender, Obese Extremities: No edema, Capillary Refill Less than 3 Seconds Skin: No rashes, No breakdown Musculoskeletal: No Tenderness to Palpation of Joints or Extremities Neurological: Cranial nerves II-XII grossly intact Psych/Mental Status: Normal Affect, Appropriate Plan is for discharge home with a prescription for p.o. Tamiflu 30 mg twice daily x6 tablets (renally adjusted dose) to complete 5-day course. Rest as per John Brito PA-C's notes which I have reviewed and endorsed. - Physical Exam Vitals/I&O's: Vital Signs Temp Pulse Resp BP Pulse Ox 98.1 F 95 18 145/63 H 93 06/24/19 14:18 06/24/19 14:57 06/24/19 14:57 06/24/19 14:18 06/24/19 14:18 Oxygen Flow Rate (L/min) 2 Oxygen Delivery Method Room Air Weight: 240 lb Body Mass Index (BMI) 40.5 Intake and Output for Last 24 Hours 06/22/19 06/23/19 06/24/19 23:59 23:59 23:59 Intake Total 1000 / 1300 1040 / 1340 1280 / 1280 Output Total 0 / 0 Balance 1000 / 1300 1040 / 1340 1280 / 1280 Microbiology Past 72 Hours 06/23/19 17:50 Stool Enteric Bacteriology - Final 06/23/19 17:50 Stool C. difficile DNA Amplification - Final 06/23/19 17:50 Stool Stool Occult Blood (MIKAEL) - Final 06/23/19 17:50 Stool Stool Lactoferrin - Final 06/22/19 21:29 Mucosa - Nasopharyngeal Respiratory Panel (PCR) - Final Influenza A (Subtype H1) 06/22/19 21:29 Mucosa - Nasopharyngeal Influenza Types A,B Direct FA (MIKAEL) - Final Influenzae A Laboratory Results 06/23/19 16:51: POC Glucose 286 H 06/23/19 21:35: POC Glucose 365 H 06/24/19 06:27: POC Glucose 287 H 06/24/19 11:32: POC Glucose 313 H Current Medications Acetaminophen (Tylenol) 650 mg PO Q6H PRN PRN PRN Reason: Pain Score 1-10/Temp > 100.7 F Albuterol Sulfate (Ventolin Aerosols) 2.5 mg INHALATION Q2H PRN PRN PRN Reason: Shortness of Breath/Wheezing Albuterol/Ipratropium (Duoneb) 3 ml INHALATION Q4HWA.RT [facility] Last Admin: 06/24/19 14:57 Dose: 3 ml Documented by: Amlodipine Besylate (Norvasc) 10 mg PO QHS [facility] Last Admin: 06/23/19 21:41 Dose: 10 mg Documented by: Atenolol (Tenormin (Beta Negin)) 50 mg PO DAILY [facility] Last Admin: 06/24/19 09:06 Dose: 50 mg Documented by: Cyclobenzaprine HCl (Flexeril) 10 mg PO TID PRN PRN PRN Reason: MUSCLE SPASMS Duloxetine HCl (Cymbalta) 60 mg PO QHS [facility] Last Admin: 06/23/19 21:41 Dose: 60 mg Documented by: Enoxaparin Sodium (Lovenox) 40 mg SC DAILY [facility] Last Admin: 06/24/19 09:06 Dose: 40 mg Documented by: Glipizide ([facility]l) [facility] Last Admin: 06/24/19 09:06 Dose: 10 mg Documented by: Glucagon () 1 mg IM .X1 PRN PRN Reason: Hypoglycemia Guaifenesin (Mucinex) 1,200 mg PO BID [facility] Last Admin: 06/24/19 09:06 Dose: 1,200 mg Documented by: Sodium Chloride () 250 mls @ 15 mls/hr IV .[id number] PRN PRN Reason: Saline Flush Sodium Chloride () 250 mls @ 15 mls/hr IV .[id number] PRN PRN Reason: Additional IVPB Infusion Dextrose (Dextrose 10%-Water) 250 mls @ 999 mls/hr IV .Q16M PRN; Protocol PRN Reason: HYPOGLYCEMIA Insulin Human Lispro (Humalog Kwikpen (Bkc)) 0 unit SC ACHS [facility]; Protocol Last Admin: 06/24/19 11:35 Dose: 6 u Documented by: Lisinopril (Zestril) 40 mg PO DAILY [facility] Last Admin: 06/23/19 09:45 Dose: 40 mg Documented by: Methylprednisolone (Solu-Medrol) 40 mg IV Q12 [facility] Last Admin: 06/24/19 09:06 Dose: 40 mg Documented by: Ondansetron HCl (Zofran) 4 mg IV Q8H PRN PRN PRN Reason: NAUSEA/VOMITING Oseltamivir Phosphate (Tamiflu) 30 mg PO BID [facility] Stop: 06/27/19 10:01 Last Admin: 06/24/19 09:08 Dose: 30 mg Documented by: Pantoprazole Sodium (Protonix) 40 mg PO DAILY [facility] Last Admin: 06/24/19 09:06 Dose: 40 mg Documented by: Pramipexole Dihydrochloride (Mirapex) 0.5 mg PO QHS [facility] Last Admin: 06/23/19 21:41 Dose: 0.5 mg Documented by: Sodium Chloride () 10 - 40 ml IV UD PRN PRN Reason: SALINE FLUSH Last Admin: 06/23/19 21:43 Dose: 10 ml Documented by: Code Visit OBSV E&M: [id number] Observation care discharge
== END 2019-06-24 17:25 | disposition home or self-care (01) ==
LOC: ED 21:28 → MS3 22:43
PROVIDERS: Internal Medicine; Admitting Provider Hospitalist; Emergency Provider Emergency Medicine; PCP Family Medicine; Visit Provider Student in an Organized Health Care Education/Training Program
DX: J10.1 Influenza due to other identified influenza virus with other respiratory manifestations (principal); R09.02 Hypoxemia; M47.816 Spondylosis without myelopathy or radiculopathy, lumbar region; R74.8 Abnormal levels of other serum enzymes; E11.22 Type 2 diabetes mellitus with diabetic chronic kidney disease; I12.9 Hypertensive chronic kidney disease with stage 1 through stage 4 chronic kidney disease, or unspecified chronic kidney disease; N18.3 Chronic kidney disease, stage 3 (moderate); E11.65 Type 2 diabetes mellitus with hyperglycemia; K22.70 Barrett's esophagus without dysplasia; G25.81 Restless legs syndrome; E66.01 Morbid (severe) obesity due to excess calories; Z79.899 Other long term (current) drug therapy; Z79.84 Long term (current) use of oral hypoglycemic drugs; Z87.891 Personal history of nicotine dependence; Z68.41 Body mass index [BMI] 40.0-44.9, adult; Z71.3 Dietary counseling and surveillance
CPT/HCPCS: 36415; 71046; 80048; 80053; 81001; 82274; 82962; 83605; 83630; 85025; 87493; 87506; 87633; 87804; 93005; 94640; 94667; 94668; 96361; 96372; 96374; 96375; 99218; 99285; J7030; A4216; G0378

== ENCOUNTER → 2019-07-13 11:45 | Outpatient (CLI) | payer OTHER, SELFPAY ==
[2019-06-22 22:07] VITALS: BMI 40.5
[2019-07-13 15:40] LABS: ALB/GLOB Ratio 0.8 RATIO (0.9-2.4); AST(SGOT) 35 U/L (15-37); Alanine Aminotransfer ALT/SGPT 48 U/L (13-56); Albumin, Serum 3.4 g/dL (3.2-5.0); Alkaline Phosphatase 91 U/L (45-117); Anion Gap 8 (5-15); BUN 18 mg/dL (7-18); BUN/Creat Ratio 17.3 RATIO (10-20); Chloride 103 mmol/L (98-107); Creatinine, Serum 1.04 mg/dL (0.55-1.02); EST Glomerular Filtration Rate 57 mL/min (>60); Est Glom Filt Rate - Afr Amer 69 mL/min (>60); Glucose 194 mg/dL (74-106); Lipase 152 U/L (73-393); Potassium 4.3 mmol/L (3.5-5.1); Protein, Total 7.4 g/dL (6.4-8.2); Sodium Level 136 mmol/L (136-145)
== END ==
PROVIDERS: PCP Family Medicine; Visit Provider Family Medicine
DX: K52.9 Noninfective gastroenteritis and colitis, unspecified (principal)
CPT/HCPCS: 36415; 80053; 83690

== ENCOUNTER → 2020-01-10 10:01 | Outpatient (CLI) | payer OTHER, SELFPAY ==
[2019-06-22 22:07] VITALS: BMI 40.5
--- NOTE | 2020-01-10 10:04 | RAD_ITS ---
STUDY: X-RAY - LUMBAR SPINE REASON FOR EXAM: Female, 59 years old. Lower back pain. TECHNIQUE: 5 view(s) of the lumbar spine were obtained. COMPARISON: Comparison is made with prior study dated 12/25/2017. FINDINGS: There is an exaggerated lumbar lordosis. There is a dextroscoliosis of the lumbar spine. There is a normal alignment of the vertebrae. There is mild endplate spondylosis of the lumbar vertebrae. Normal disc space heights. The soft tissue structures are unremarkable. RAD/L/S Spine Min 4 Views IMPRESSION: Degenerative changes of the spine, as detailed above. Electronically Signed: Simeon Osuna, at 15:14 EDT , Service support ,
== END ==
PROVIDERS: PCP Family Medicine; Referring Provider Anesthesiology; Visit Provider Anesthesiology
DX: M40.56 Lordosis, unspecified, lumbar region (principal); M47.816 Spondylosis without myelopathy or radiculopathy, lumbar region
CPT/HCPCS: 72110

== ENCOUNTER 2020-02-03 12:13 | Day surgery (SDC) | payer OTHER, SELFPAY ==
[2019-06-22 22:07] VITALS: BMI 40.5
[2020-02-03] VITALS (7 sets, daily range): BP systolic 132–147; BP diastolic 69–77; PULSE 77–82; RESP 16; TEMP 36.2–36.7; O2SAT 93–96; BMI 44.6
--- NOTE | 2020-02-03 07:21 | RAD_ITS ---
PROCEDURE: Left L3-S1 facet joint block. DATE OF EXAMINATION: 02/03/2020. INDICATION: Female, 59 years old. Chronic back pain. FLUOROSCOPY TIME (if supplied): (28.2 seconds) minutes/seconds. 3 images were obtained. Intraoperative fluoroscopic services provided for left L3-S1 facet joint block. RAD/Lumbar Spine 2 or 3 Views IMPRESSION: Intraoperative fluoroscopic services provided for left L3-S1 facet joint block. Electronically Signed: Simeon Osuna, at 15:13 EDT , Service support ,
[2020-02-03] MEDS: Lactated Ringers 1,000 ML 100 ML IV (13:12)
[2020-02-03 13:21] LABS: Bedside Glucose 136 mg/dL (70-110)
--- NOTE | 2020-02-03 13:34 | DCINST_ITS ---
- Discharge Diagnoses Current Active Problems: Patient is complaining of lower back pain You will use the following diet at home:: No restrictions, Regular Your food should be the consistency of: Regular Discharge Activity: Return to Normal Activity May shower in (days): 1 May resume sexual activity in: No Restrictions Weight Bearing Status: Weight bearing as tolerated, Full weight bearing Call your doctor if your incision/area has: Continuous Slow Oozing, Sudden Increased Bleeding, Increased Pain/ Swelling, Increased Redness, Foul Smelling Discharge, Swelling at the incision site Call your doctor if you observe: Fever of 101 or Higher, Coldness, Increased Pain, Numbness or Tingling, Uncontrolled pain Suture Line Care: Avoid Pulling/Pushing, Avoid Pinching/Bending Remove Dressing in (days):: 1 Cleanse incision/area with: Soap & Water Instructions: What Is Osteoarthritis?, Living with Osteoarthritis, Osteoarthritis: Coping with Pain Allergies/Adverse Reactions: Allergies Penicillins Allergy (Verified 02/03/20 12:46) Hives Medications to take at Discharge Atenolol [Tenormin (beta mine)] 50 mg PO DAILY 06/08/14 Esomeprazole Mag Trihydrate [Nexium] 40 mg PO DAILY 06/08/14 Lisinopril [Zestril] 40 mg PO DAILY 06/08/14 Amlodipine [Norvasc] 10 mg PO QHS 04/08/18 Duloxetine Hcl [Cymbalta] 60 mg PO QHS 04/08/18 Pramipexole Di-HCl [Mirapex] 0.5 mg PO QHS 04/08/18 metFORMIN HCl [Glucophage] 1,000 mg PO BIDCM 04/08/18 Cyclobenzaprine HCl 10 mg PO BID 06/22/19 Glipizide [Glipizide Xl] 10 mg PO DAILY 06/22/19 Albuterol IH (ProAir) [Proair Hfa] 1 puff INHALATION Q4H PRN PRN #1 inhaler 06/24/19 Meloxicam [Mobic] 7.5 mg PO BID 02/02/20 Insulin Degludec [Tresiba] 20 unit SQ DAILY 02/03/20 Primary Care Physician: Kate Spencer DO [Primary Care Provider] - Test Results: Test results from this visit will be discussed in further detail at your follow- up appointment, if applicable. Please Follow Up With: Claudia Amaya MD
--- NOTE | 2020-02-03 13:36 | OP.PCM_ITS ---
Problem List (1) Spondylosis of lumbar region without myelopathy or radiculopathy Status: Chronic (2) Low back pain Status: Chronic (3) Low back pain Status: Chronic Report of Operation Date of Procedure: 02/03/20 Pre-Operative Diagnosis: Lumbar facet spondylosis Post-Operative Diagnosis: Same Surgery/Procedure Performed:: Left-sided lumbar facets median nerve branch block at the level of the left side L3-4 L4-5 5 S1 facet under fluoroscopy guidance Description of Surgical Findings:: Under sterile conditions. Patient placed in the prone position, pressure points were padded, patient was ready from the nursing and the anesthesia team. After identification of the side and the target area for the block under guided fluoroscopy, the entry site was marked with marking pen. I used Betadine for sterilization of the skin, sterile draping were applied. Using 25-gauge needle to infiltrate the skin with local anesthesia using preservative-free lidocaine 0.5% injected 2.5 mL at each site of entry. Using oblique fluoroscopy, accessed the right medial nerve branch supplying the left lumbar facets L3-4, L4-5, L5-S1 using 22-gauge spinal needle. After confirmation of appropriate needle placement to the targeted area with AP and lateral fluoroscopy, injected 2.5 mL mixture of preservative-free Marcaine 0.5% and Kenalog [10] mg at each site. [place] was removed, pressure dressing were applied. Patient tolerated the procedure well and was taken to the recovery. Type of Anesthesia:: Local MAC
[2020-02-03] MEDS: Triamcinolone Acetonide 40 MG/ML Vial (13:49)
[2020-02-03] MEDS: Bupivacaine 0.25% 30 ML Vial (13:49)
== END 2020-02-03 14:41 | disposition home or self-care (01) ==
LOC: SDC 12:14 → AC 12:16
PROVIDERS: PCP Family Medicine; Referring Provider Anesthesiology; Visit Provider Anesthesiology
PROC: 3E0T3BZ Introduction of Anesthetic Agent into Peripheral Nerves and Plexi, Percutaneous Approach (ICD-10-PCS; principal; 2020-02-03 13:25)
DX: M47.26 Other spondylosis with radiculopathy, lumbar region (principal); M51.16 Intervertebral disc disorders with radiculopathy, lumbar region; M48.062 Spinal stenosis, lumbar region with neurogenic claudication; M51.26 Other intervertebral disc displacement, lumbar region; M99.53 Intervertebral disc stenosis of neural canal of lumbar region; I10 Essential (primary) hypertension; E11.9 Type 2 diabetes mellitus without complications; G47.30 Sleep apnea, unspecified; M19.90 Unspecified osteoarthritis, unspecified site; G25.81 Restless legs syndrome; K21.9 Gastro-esophageal reflux disease without esophagitis; E78.00 Pure hypercholesterolemia, unspecified; N28.1 Cyst of kidney, acquired; Z78.0 Asymptomatic menopausal state; Z91.19 Patient's noncompliance with other medical treatment and regimen; Z79.4 Long term (current) use of insulin; Z79.899 Other long term (current) drug therapy; Z87.891 Personal history of nicotine dependence
CPT/HCPCS: 01992; 64493; 64494; 64495; 64483; 64490; 72100; 82962; J7120

== ENCOUNTER 2020-04-06 07:20 | Day surgery (SDC) | payer OTHER, SELFPAY ==
[2020-03-06 09:34] VITALS: BMI 42.7
--- NOTE | 2020-04-06 | GASB_PTH ---
PATIENT: LANA GODOY LOC: EN U#:[id number] AGE/SX: 59/F ROOM: RE04/06/[address]: Dr. Carlos Jiménez MD : [id number] BED: DIS: 04/06/2020 SPEC #: [id number] RECD: 04/06/20 11:42 STATUS: MARÍA AIRN #: [id number] ZEKE: 04/06/20 00:[address]: Carlos Jiménez DEPT: SURGICAL PATHOLOGY RECD BY: Obdulio Huffman ENTERED: 04/06/20 11:42 SP TYPE: Gastric Bx OTHR DR: Dr. Kate Spencer DO Tissues: A - Gastric mucous membrane B - Gastric mucous membrane Procedures: Special Stain Group II Surgery Specimen Level IV Alcian Blue/PAS (control) HEADER OPERATION: EGD ([facility]) PRE-OP DIAGNOSIS: Nausea and vomiting, epigastric pain, history of Bahena's esophagus TISSUE SUBMITTED: A - Gastric antrum, B - GE junction biopsy MICROSCOPIC DIAGNOSIS A. Gastric antrum, biopsy: Mild chronic active gastritis. B. Gastroesophageal junction, biopsy: Chronic inflammation. No evidence of goblet cell metaplasia. See comment. AM:lalo 04/09/20 COMMENT B. Alcian blue/PAS stain with matched control supports the above diagnosis. MICROSCOPIC DESCRIPTION Slides are reviewed. GROSS DESCRIPTION A - Received in fixative is one container labeled with the patient's name and designated gastric antrum. The specimen consists of two irregular fragments of light rodrigues soft tissue that in aggregate measure 0.6 x 0.3 x 0.1 cm. The specimen is totally submitted in one cassette. B - Received in fixative is one container labeled with the patient's name and designated GE junction. The specimen consists of multiple irregular fragments of light rodrigues soft tissue that in aggregate measure 0.6 x 0.3 x 0.1 cm. The specimen is totally submitted in one cassette. / AM:lalo 04/06/20 TC:2 CPT: 63666 x2, 44985
[2020-04-06 07:41] VITALS: BP 147/88; PULSE 96; RESP 16; TEMP 36.9; O2SAT 100; BMI 43.4
[2020-04-06] MEDS: Lactated Ringers 1,000 ML 100 ML IV (07:46)
[2020-04-06 07:50] LABS: Bedside Glucose 217 mg/dL (70-110)
--- NOTE | 2020-04-06 08:00 | HP_ITS ---
Intake Vital Signs 03/06/20 Height 5 ft 5 in 03/06/20 Weight: 257 lb 2 oz 03/06/20 BMI 42.7 03/06/20 BP 121/66 H 03/06/20 Blood Pressure Location Rt brachial 03/06/20 Position Sitting 03/06/20 Respiration 18 03/06/20 Pulse 72 03/06/20 Pulse Source Monitor 03/06/20 Temp 96.4 F L 03/06/20 Temp Source Temporal 03/06/20 Pulse Oximetry (%) 95 03/06/20 Oxygen Delivery Method room air Intake Visit Reasons: EGD, NAUSEA Chief Complaint: EGD/Nausea [employer] Required: No Is patient in pain?: No Allergies Penicillins Allergy (Verified 03/06/20 09:36) Hives Medications Lisinopril [Zestril] 40 mg PO DAILY 06/08/14 [History Confirmed 03/06/20] Amlodipine [Norvasc] 10 mg PO QHS 04/08/18 [History Confirmed 03/06/20] Duloxetine Hcl [Cymbalta] 60 mg PO QHS 04/08/18 [History Confirmed 03/06/20] Pramipexole Di-HCl [Mirapex] 0.5 mg PO QHS 04/08/18 [History Confirmed 03/06/20] metFORMIN HCl [Glucophage] 1,000 mg PO BIDCM 04/08/18 [History Confirmed 03/06/20] Albuterol IH (ProAir) [Proair Hfa] 1 puff INHALATION Q4H PRN PRN #1 inhaler 06/24/19 [Rx Confirmed 03/06/20] atenolol 50 mg tablet 100 mg PO DAILY tab 03/06/20 [History Confirmed 03/06/20] colestipol 1 gram tablet 1 g PO BID tab 03/06/20 [History Confirmed 03/06/20] cyclobenzaprine 10 mg tablet 10 mg PO TID tab 03/06/20 [History Confirmed 03/06/20] esomeprazole magnesium 40 mg capsule,delayed release 40 mg PO BID cap 03/06/20 [History Confirmed 03/06/20] glipizide 10 mg tablet, extended release 24 hr 10 mg PO BID tab 03/06/20 [History Confirmed 03/06/20] insulin degludec 100 unit/mL (3 mL) subcutaneous pen 36 unit SC DAILY ml 03/06/20 [History Confirmed 03/06/20] oxybutynin chloride 10 mg tablet,extended release 24 hr 10 mg PO DAILY 03/06/20 [History Confirmed 03/06/20] [facility] Medical History (Updated 03/06/20 @ 09:[address] Carlos Jiménez MD) Influenza A (Acute) Hypoxia (Acute) Reactive airway disease (Acute) Viral syndrome (Acute) Spondylosis of lumbar region without myelopathy or radiculopathy (Chronic) Low back pain (Chronic) Bahena's esophagus (Acute) Diabetes (Acute) Fatigue (Acute) GERD (gastroesophageal reflux disease) (Acute) Nausea (Acute) Obesity (Acute) Sleep apnea (Acute) Hypertension (Chronic) Surgical History (Updated 03/06/20 @ 09:33 by Sophy Singletary) History of carpal tunnel release (Acute) History of cholecystectomy (Acute) History of tubal ligation (Acute) Family History (Updated 03/06/20 @ 09:34 by Sophy Singletary) Father Cancer bladder cancer Mother Diabetes Sister Diabetes Social History (Updated 03/06/20 @ 09:[address] Carlos Jiménez MD) Smoking Status: Former smoker alcohol intake: never substance use type: does not use HPI HPI HPI: LANA GODOY, is a 59 F who presents to the office today for HPI HPI Surgical H&P: Yes HPI: LANA GODOY, is a 59 F who presents to the office today for Nausea and vomiting and epigastric pain. The patient also has a history of Bahena's esophagus and is due for EGD soon. Patient reports she has been having nausea and vomiting for months. She does not have a gallbladder. She reports she is also having epigastric pain and GERD. She has also gained 30 pounds of weight over the last 2 months. ROS General General: Yes weight change and appetite; no fatigue, colon cancer, breast cancer or weakness HEENT HEENT: No difficulty swallowing, eye injury, eye surgery, swollen glands or hoarseness Endo Endocrine: Yes diabetes mellitus; no thyroid disease, thyroid cancer, Hair loss, heat intolerance or cold intolerance Skin Skin: No rash or changing moles Breast Breast: No left breast lump, right breast lump, nipple discharge, breast pain, abnormal mammogram, abnormal US or breast enlargement Musc Musculoskeletal: Yes back problems and arthritis; no rheumatoid arthritis, gout or joint pain Cardio Cardiovascular: Yes high blood pressure; no murmur, pacemaker, heart disease, atrial fibrillation, heart attack, heart stent, palpitations, shortness of breat with exertion or chest pain Psych Psychiatric: No depression, anxiety or hearing voices Resp Respiratory: Yes shortness of breath, Yes sleep apnea, No cough, No COPD, No asthma, No emphysema, No wheezing Gastro Gastrointestinal: Yes abdominal pain, Yes nausea or vomiting, Yes diarrhea, No constipation, No blood in stool, Yes acid reflux, Yes hemorrhoids, No ulcers, No gallbladder problem, No black,tarry stools Perry Hematologic: No blood thinners, No blood disorders, No bleeding, No anemia, No blood clots Neuro Neurologic: No system reviewed and no additional complaints, except as docu, No as per HPI, No abnormal walking, No abnormal hearing, No abnormal movements, No abnormal speech, No behavioral changes, No burning sensations, No confusion, No seizure-like activity, No unsteadiness, No dizziness, No localized weakness, No frequent falls, No headache(s), No lack of coordination, No loss of vision, No memory loss, No numbness, No other visual disturbances, No radiating pain, No restless legs, No sensory deficit, No fainting, No tingling, No tremor(s), No weakness, No other Exam Const General: cooperative Orientation: alert, oriented x3 Chest Breast Palpation: No nipple discharge Resp Effort & Inspection: normal respiratory effort Auscultation: clear to auscultation bilaterally Cardio Rate: regular rate Rhythm: regular rhythm Heart Sounds: no murmurs GI Inspection: non-distended Palpation: soft, nontender Assessment & Plan Problems 1. Nausea and vomiting, intractability of vomiting not specified, unspecified vomiting type R11.2 2. Epigastric pain R10.13 3. History of Bahena's esophagus Z87.19 4. Diabetes E11.9 Plan The patient reports that she has been having uncontrolled nausea and vomiting. She says that she has been having increased GERD and has gained weight. She does have diabetes as well and on a multitude of medicines. I am unsure if she is having acid reflux due to her weight gain or gastroparesis. She says say that she has had abnormal gastric emptying study in the past. Patient had Bahena's esophagus 3 years ago and according to her it was removed, it was likely ablated. The patient is due for surveillance EGD and I will plan for an EGD and investigation into her stomach and seeing if she has peptic ulcer disease. I explained endoscopy in detail to the patient. I explained the risks including but not limited to stroke or heart attack with anesthesia, perforation of the GI tract, bleeding, infection. I explained that any of these could necessitate further emergency surgery. The patient understands and all questions were answered sufficiently. The patient wishes to proceed with procedure. We discussed the current risks associated with COVID-19. While it is understood that there is a community spread of COVID-19, the risk of chapincito COVID-19 while at [facility] ([facility] [place]) is very low; however, the risk cannot be completely mitigated because of the community spread of the disease. We discussed in detail the risk of exposure to and/or potential harm posed by the COVID-19 virus with having a surgery/procedure at this time versus the risk of delaying the surgery/procedure. It is not possible to know either the risk of delaying the surgery or procedure or chance of getting an infection with perfect accuracy, but a joint decision was made to proceed at this time with the scheduled surgery/procedure as indicated on the consent form. Patient was notified that we will need to comply with any screening or testing [facility] [place] wishes to perform or that surgery may be delayed for any positive results. Carlos Jiménez MD Pager: [facility] [place] [address] [place] [address], [address] [place] [address] Office: Orders Orders: EGD Today R10.13, R11.2, Z87.19 Coding Level of Care Code Off vis,new,level 3 Diagnoses Nausea and vomiting, intractability of vomiting not specified, unspecified vomiting type R11.2 ??Vomiting type: unspecified ??Vomiting Intractability: unspecified Epigastric pain R10.13 History of Bahena's esophagus Z87.19 Diabetes E11.9 I have re-examined the patient. There are no clinical changes since date of exam.
[2020-04-06 09:10] VITALS: BP 114/49; BP 147/88; PULSE 90; RESP 16; TEMP 37.1; O2SAT 93
--- NOTE | 2020-04-06 09:10 | OP.CCLET_ITS ---
04/06/2020 Kate Spnecer [address] [facility] [place] [address] Re : Upper GI endoscopy procedure for Nelia Wheatkins Dear Dr. Spencer This procedure was performed on Monday, April 06, 2020. My impressions and recommendations are as follows: Impressions : - There is no endoscopic evidence of Bahena's esophagus. Biopsied. - Normal esophagus. - Normal stomach. - Normal examined duodenum. - Biopsies were taken with a cold forceps for Helicobacter pylori testing. Recommendations : - Discharge patient to home. - Resume previous diet. - Continue present medications. - Await pathology results. My findings are described in the full procedure note, which is enclosed. If I can be of further assistance, please feel free to contact me at Doctor phone number(s): , Work: . Sincerely, Carlos Jiménez MD 04/06/2020 9:09:24 AM This report has been signed electronically.
--- NOTE | 2020-04-06 09:10 | OP.EGD_ITS ---
Patient Name: Nelia Barker Procedure Date: 04/06/2020 8:36 AM Date of : 1960 Age: 59 Procedure: Upper GI endoscopy Indications: Epigastric abdominal pain, Follow-up of Bahena's esophagus Providers: Carlos Jiménez MD Referring MD: Kate Spencer Medicines: Monitored Anesthesia Care Patient Profile: This is a 59 year old female. Refer to note in patient chart for documentation of history and physical. Complications: No immediate complications. Estimated blood loss: Minimal. Procedure: Pre-Anesthesia Assessment: - Prior to the procedure, a History and Physical was performed, and patient medications and allergies were reviewed. The patient's tolerance of previous anesthesia was also reviewed. The risks and benefits of the procedure and the sedation options and risks were discussed with the patient. All questions were answered, and informed consent was obtained. Prior Anticoagulants: The patient has taken no previous anticoagulant or antiplatelet agents. After reviewing the risks and benefits, the patient was deemed in satisfactory condition to undergo the procedure. After obtaining informed consent, the endoscope was passed under direct vision. Throughout the procedure, the patient's blood pressure, pulse, and oxygen saturations were monitored continuously. The gastroscope was introduced through the mouth, and advanced to the third part of duodenum. The upper GI endoscopy was accomplished without difficulty. The patient tolerated the procedure well. Scope In: 9:02:36 AM Scope Out: 9:05:31 AM Total Procedure Duration Time 0 hours 2 minutes 55 seconds Findings: The esophagus and gastroesophageal junction were examined with white light from a forward view and retroflexed position. There was no visual evidence of Bahena's esophagus. Mucosa was biopsied with a cold forceps for histology randomly at the gastroesophageal junction. The esophagus was normal. The stomach was normal. The examined duodenum was normal. Biopsies were taken with a cold forceps in the gastric antrum for Helicobacter pylori testing. Impression: - There is no endoscopic evidence of Bahena's esophagus. Biopsied. - Normal esophagus. - Normal stomach. - Normal examined duodenum. - Biopsies were taken with a cold forceps for Helicobacter pylori testing. Recommendation: - Discharge patient to home. - Resume previous diet. - Continue present medications. - Await pathology results. Procedure Code(s): --- Professional --- 81128, Esophagogastroduodenoscopy, flexible, transoral; with biopsy, single or multiple Diagnosis Code(s): --- Professional --- K22.70, Bahena's esophagus without dysplasia R10.13, Epigastric pain CPT copyright 2017 [employer]. All rights reserved. The codes documented in this report are preliminary and upon application support technician review may be revised to meet current compliance requirements. Carlos Jimnéez MD 04/06/2020 9:09:24 AM This report has been signed electronically. Number of Addenda: 0 Note Initiated On: 04/06/2020 8:36 AM
[2020-04-06 09:15] VITALS: BP 103/59; BP 147/88; PULSE 87; RESP 16; O2SAT 96
[2020-04-06 09:20] VITALS: BP 101/64; BP 147/88; PULSE 89; RESP 16; O2SAT 95
[2020-04-06 09:23] VITALS: BP 112/69; BP 147/88; PULSE 87; RESP 16; TEMP 36.8; O2SAT 95
== END 2020-04-06 09:49 | disposition home or self-care (01) ==
LOC: EN 07:21 → AC 07:21
PROVIDERS: PCP Family Medicine; Referring Provider Family Medicine; Visit Provider Surgery
PROC: 0DJ08ZZ Inspection of Upper Intestinal Tract, Via Natural or Artificial Opening Endoscopic (ICD-10-PCS; CPT 43235; principal; 2020-04-06 08:25)
DX: K29.50 Unspecified chronic gastritis without bleeding (principal); R10.13 Epigastric pain; R11.2 Nausea with vomiting, unspecified; K21.9 Gastro-esophageal reflux disease without esophagitis; I10 Essential (primary) hypertension; E11.9 Type 2 diabetes mellitus without complications; E78.00 Pure hypercholesterolemia, unspecified; G25.81 Restless legs syndrome; E66.9 Obesity, unspecified; Z68.41 Body mass index [BMI] 40.0-44.9, adult; Z87.19 Personal history of other diseases of the digestive system; Z88.0 Allergy status to penicillin; Z79.4 Long term (current) use of insulin; Z79.899 Other long term (current) drug therapy; Z87.891 Personal history of nicotine dependence; Z20.828 Contact with and (suspected) exposure to other viral communicable diseases
CPT/HCPCS: 43239; 82962; 87426; 88305; 88313; C9803; J7120; J2405

== ENCOUNTER → 2020-04-11 08:17 | Outpatient (CLI) | payer OTHER, SELFPAY ==
[2020-04-06 07:41] VITALS: BMI 43.4
[2020-04-11 09:39] LABS: Microalbumin,Random Urine 26.3 mg/L (NO RANGE EST.); Microalbumin:Creatinine Ratio 14.9 mg/g CRE (<30 mg/g CRE)
[2020-04-11 09:52] LABS: ALB/GLOB Ratio 0.8 RATIO (0.9-2.4); AST(SGOT) 23 U/L (15-37); Alanine Aminotransfer ALT/SGPT 26 U/L (13-56); Alkaline Phosphatase 91 U/L (45-117); Anion Gap 6 (5-15); BUN 16 mg/dL (7-18); Calcium,Total 9.1 mg/dL (8.5-10.1); Chloride 103 mmol/L (98-107); Cholesterol 178 mg/dL (200); Creatinine, Serum 0.94 mg/dL (0.55-1.02); EST Glomerular Filtration Rate 64 mL/min (>60); Est Glom Filt Rate - Afr Amer 78 mL/min (>60); Globulin 3.8 g/dL (2.2-4.2); Glucose 176 mg/dL (74-106); High Density Lipoprotein 43 mg/dL; Magnesium 1.5 mg/dL (1.6-2.6); Potassium 4.1 mmol/L (3.5-5.1); Protein, Total 6.8 g/dL (6.4-8.2); Sodium Level 139 mmol/L (136-145); Triglycerides 190 mg/dL; Very Low Density Lipoprotein 38 mg/dL (5-40)
== END ==
PROVIDERS: PCP Family Medicine; Referring Provider Family Medicine; Visit Provider Family Medicine
DX: E11.9 Type 2 diabetes mellitus without complications (principal); R25.2 Cramp and spasm; Z51.81 Encounter for therapeutic drug level monitoring
CPT/HCPCS: 36415; 80053; 80061; 82043; 82570; 83036; 83735

== ENCOUNTER 2020-04-24 09:26 | Emergency (ER) | payer OTHER, SELFPAY ==
[2020-04-24 09:28] VITALS: BP 153/77; PULSE 85; RESP 16; TEMP 36.3; O2SAT 99; BMI 42.9
--- NOTE | 2020-04-24 09:36 | RAD_ITS ---
STUDY: X-RAY - RIGHT HUMERUS REASON FOR EXAM: Female, 59 years old. RIGHT ARM PAIN S/P FALL THIS MORNING TECHNIQUE: 3 view(s) of the humerus. COMPARISON: None. FINDINGS: Normal visualized humerus. There is no demonstrated fracture or osseous destructive process. There is no demonstrated soft tissue abnormality. RAD/Humerus min 2 Views IMPRESSION: Normal x-ray examination of the humerus. Electronically Signed: Simeon Osuna, at 10:02 EST , Service support ,
--- NOTE | 2020-04-24 09:37 | ED.DCSUM_ITS ---
- ER Visit Summary Date of Service: 04/24/20 Chief Complaint: [Fall with injury to right upper arm] History of Present Illness: The patient is a 59 F [presents to the emergency department after sustaining a fall this morning. Patient states that she had some big clunky shoes on when she was going up the porch steps and she fell onto the porch injuring her right arm. She denies striking her head or loss of consciousness. She denies any other injuries. Patient states that she try to go to work but has severe pain with movement of the right arm. Patient is right-hand dominant. Patient has history of hypertension, diabetes, and GERD.] Physical Examination: [HEENT-PERRLA, EOMI. Cranial nerves II through XII grossly intact. TMs clear. Mucous membranes moist. No adenopathy. Cardiovascular-regular rate and rhythm without murmur or ectopy Lungs-clear to auscultation, chest wall stable without crepitus or subcu emphysema Abdomen-normoactive bowel sounds, soft, nontender, no rebound or rigidity, no peritoneal signs. Extremities-intact ?4, normal range of motion, normal pulses, atraumatic. Right arm-patient has diffuse tenderness over the right upper humerus. No sulcus sign. Patient has painful range of motion. There is no obvious deformity. There is no ecchymosis or bruising. No tenderness at the elbow or wrist noted. Neurovascularly intact.] Test Results: [X-ray of right humerus obtained read by myself as no acute fractures or dislocations. Radiology in agreement.] Emergency Department Course and Treatment: [Patient had a sling applied and she was given 1 Stanton for pain.] Treatment Plan: [To follow-up with primary care physician in 5 to 7 days. Patient understands if symptoms do not improve that we cannot rule out ligamentous injury or rotator cuff injury and she may need further imaging such as possibly MRI to evaluate further. She may require further evaluation by orthopedics potentially.] Disposition: [Discharged home in stable condition] Impression: [Contusion right upper extremity Mechanical fall] This note was generated with [employer] software. It may contain incorrect words, spelling, and punctuation that were not noted in review of the chart prior to signing ED Disposition - Plan for ED Patient: Referrals: Kate Spencer DO [Primary Care Provider] -
--- NOTE | 2020-04-24 10:09 | DCINST.ED_ITS ---
ED Disposition - Plan for ED Patient: Instructions: ED Contusion, Upper Extremity Prescriptions: Hydrocodone Bitart/Apap 5-325 [[place] 5MG-325MG] 1 tab PO Q4H PRN PRN 2 Days #10 tab PRN Reason: Pain Prescription Printed Referrals: Kate Spencer DO [Primary Care Provider] - 5-7 Days
[2020-04-24] MEDS: HYDROcodone Bitartrate/Apap 5/325 Tablet PO (10:20)
== END 2020-04-24 10:28 | disposition home or self-care (01) ==
LOC: ED 10:03
PROVIDERS: Emergency Provider Emergency Medicine; PCP Family Medicine
DX: S40.021A Contusion of right upper arm, initial encounter (principal); W10.8XXA Fall (on) (from) other stairs and steps, initial encounter; Y93.01 Activity, walking, marching and hiking; Y92.008 Other place in unspecified non-institutional (private) residence as the place of occurrence of the external cause; Y99.9 Unspecified external cause status; I10 Essential (primary) hypertension; E11.9 Type 2 diabetes mellitus without complications; K21.9 Gastro-esophageal reflux disease without esophagitis; Z79.4 Long term (current) use of insulin; Z79.899 Other long term (current) drug therapy
CPT/HCPCS: 73060; 99283

== ENCOUNTER 2020-05-12 06:29 | Inpatient (IN) | payer OTHER, SELFPAY ==
[2020-05-12] VITALS (16 sets, daily range): BP systolic 111–152; BP diastolic 55–78; PULSE 93–110; RESP 12–20; TEMP 36.1–36.6; O2SAT 4–96; BMI 44.1
--- NOTE | 2020-05-12 06:41 | EKG12_ITS ---
Test Reason : NAUSEA Blood Pressure : / mmHG Vent. Rate : 102 BPM Atrial Rate : 102 BPM P-R Int : 182 ms QRS Dur : 084 ms QT Int : 340 ms P-R-T Axes : 065 024 053 degrees QTc Int : 443 ms Sinus tachycardia Otherwise normal ECG Confirmed by MENDEL SNIDER, PIOTR ([id number]), editor producer MARTI SELF ([id number]) on 05/14/2020 10:27:18 AM Referred By: ANDREW Confirmed By:PIOTR OGLESBY MD
--- NOTE | 2020-05-12 06:41 | RAD_ITS ---
STUDY: X-RAY CHEST REASON FOR EXAM: Female, 59 years old. Nausea, vomiting, body aches for several days TECHNIQUE: Single AP portable view of the chest. COMPARISON: 06/22/2019 FINDINGS: Slightly prominent interstitial changes in the right lower lung. Early infiltrate is difficult to exclude. There is no demonstrated pleural abnormality. Normal size heart. Normal mediastinum and edwina. Normal visualized pulmonary arteries. Normal visualized aortic arch and descending thoracic aorta. Normal visualized thoracic spine. Normal visualized ribs, clavicles, and shoulders. There is no demonstrated abnormality of the visualized soft tissue structures of the upper abdomen. RAD/Chest 1 View (Portable) IMPRESSION: Possible mild right lower lung infiltrate. Electronically Signed: Sincere Carrera MD at 8:16 EST Tel , Service support ,
--- NOTE | 2020-05-12 06:43 | ED.VIS.GEN ---
History of Present Illness Chief Complaint: Nausea/Vomiting Informant: Patient Narrative: Patient stated she has had nausea vomiting for the last 3 days multiple times throughout the day. Cannot keep anything down. She stated she felt like she had a fever but has not. She has had some muscle aches but this is not uncommon for her. She does have a history of nausea vomiting and Bahena's esophagus in the past. No home treatment. Current severity is moderate. EMS noted she was hypoxic on arrival and placed on nasal cannula oxygenation. She denies any shortness of breath. She has no history of COPD or CHF or heart problems. She did not know she was hypoxic. Upon arrival she is 83% on room air. Her pulse ox on nasal cannula bumped up greater than 90%. No coronavirus exposures. Previous cholecystectomy in the past. Denies abdominal pain. Normal bowel movements. - Past Medical History (1) Nausea & vomiting Status: Acute (2) Epigastric pain Status: Acute (3) History of Bahena's esophagus Status: Acute (4) Influenza A Status: Acute (5) Hypoxia Status: Acute (6) Reactive airway disease Status: Acute (7) Viral syndrome Status: Acute (8) Spondylosis of lumbar region without myelopathy or radiculopathy Status: Chronic (9) Low back pain Status: Chronic (10) Low back pain Status: Chronic Past Medical History - Allergies and Home Meds Allergies/Adverse Reactions: Allergies Penicillins Allergy (Verified 04/24/20 09:27) Hives Primary Care Physician: Kate Spencer DO [Primary Care Provider] - Prior records reviewed: Yes Past Medical History: - - See problem list Surgical History: cholecystectomy Smoking Status: Never smoker Alcohol: None Drugs: None - Family History Maternal Family History: Family History (Last Updated 03/06/20 @ 09:34 by Sophy Singletary) Father Cancer Mother Diabetes Sister Diabetes Family History: Reports: - Paternal Family History: Family History (Last Updated 03/06/20 @ 09:34 by Sophy Singletary) Father Cancer Mother Diabetes Sister Diabetes Family History: Reports: Cancer Review of Systems General: Reports: Chills Eyes: Denies: Visual changes - bilaterally, Diplopia ENT: Denies: Rhinorrhea, Sore throat Cardiovascular: Denies: Chest pain, Palpitations Respiratory: Denies: Dyspnea, Cough, Dyspnea on exertion Gastrointestinal: Reports: Nausea, Vomiting Genitourinary: Denies: Dysuria, Hematuria, Frequency Musculoskeletal: Reports: Myalgias. Denies: Back pain, Extremity Pain Skin: Denies: Rash, Wounds Neurological: Denies: Headache, Weakness, Numbness Physical Exam Vital Signs/Narrative: Vital Signs Temp Pulse Resp BP Pulse Ox 05/12/20 06:37 83 05/12/20 06:30 97.5 F L 110 H 20 H 146/72 H 94 General: Well nourished, Well developed, No Acute Distress Head: Normocephalic, Atraumatic Eyes: Perrl, EOMI ENT: Moist mucous membranes, No rhinorrhea Neck: Supple, Nontender Cardiovascular: Regular rhythm, No murmurs, Tachycardia. Negative for: Regular rate Respiratory: No distress, CTA bilaterally, Chest nontender Abdomen: Soft, Nontender, Nondistended, Normal bowel sounds, No masses. Negative for: Tender, Guarding, Rebound tenderness, Hypoactive bowel sounds Back: Nontender, Normal Inspection Extremities: Nontender, No edema Skin: Normal color, No rash Neurological: Alert, Oriented x3, Cranial nerves II-XII grossly intact, Normal Strength, Normal Sensation Psychological: Normal affect, Normal Mood Diagnostic/Tx/Re-eval - Medical Decision Making Patient presents with nausea vomiting and muscle aches and viral symptoms. Given IV Zofran and IV fluids. Lab work EKG and chest x-ray obtained. Lab work includes coronavirus testing. Patient also stated later she has pain in her left ear. There appears to be a otitis externa. Given Cortisporin otic for this. EKG was obtained by myself and shows sinus tachycardia at a rate of 102 with no acute ischemia or arrhythmia. Lab work initially shows a leukocytosis with a white count greater than 18,000. We will send blood cultures and check a urine analysis. Electrolytes show a creatinine just above normal for her. Troponin negative. Patient will be signed out to the a.m. oncoming physician for final disposition ED Disposition - Plan for ED Patient:
[2020-05-12 06:52] LABS: Absolute Lymphocyte Count 1.84 X10^3/uL (0.83-4.51); Absolute Neutrophil Count 15.1 X10^3/uL (2.0-7.7); Basophil# 0.11 X10^3/uL; Basophil% 0.6 % (0-1); Eosinophil# 0.05 X10^3/uL; Eosinophils% 0.3 % (0-5); Hematocrit 36.6 % (37-47); Hemoglobin 10.5 g/dL (12.0-15.0); Lymphocyte # 1.84 X10^3/ul (4.0); Mean Corp Hgb Conc 28.7 g/dL (32-36); Mean Corpuscular Hgb 23.4 pg (27.0-32.0); Mean Corpuscular Volume 81.7 fL (81-99); Mean Platelet Vol. 9.7 fl (6.2-12.0); Monocyte# 0.96 X10^3/uL; Monocyte% 5.2 % (0-10); NRBC Flagged by Analyzer 0.2 % (0-5); Neutrophil # 15.09 X10^3/uL (2.7-7.7); Neutrophil % 81.9 % (47-70); Platelet Count 453 K/mm3 (150-450); RBC Distribution Width SD 44.7 fl (35.1-43.9); Red Blood Count 4.48 M/mm3 (4.2-5.4); White Blood Count 18.4 K/mm3 (4.4-11.0)
[2020-05-12] MEDS: Ondansetron 4 MG/2 ML Vial IV ×2 (06:59→12:15)
[2020-05-12 07:06] LABS: Anion Gap 6 (5-15); BUN 18 mg/dL (7-18); Calcium,Total 8.6 mg/dL (8.5-10.1); Chloride 99 mmol/L (98-107); Creatinine, Serum 1.06 mg/dL (0.55-1.02); EST Glomerular Filtration Rate 56 mL/min (>60); Est Glom Filt Rate - Afr Amer 68 mL/min (>60); Estimated Creatinine Clearance 50.15 ml/min; Glucose 205 mg/dL (74-106); Potassium 4.6 mmol/L (3.5-5.1); Sodium Level 137 mmol/L (136-145)
[2020-05-12] MEDS: Ipratropium/Albuterol Sulfate 3 ML AMPUL.NEB INHALATION (07:06)
[2020-05-12 08:00] LABS: Bacteria 0 SEEN /hpf (None Seen); Red Blood Cells-Urine 0 SEEN /hpf (0-5); White Blood Cells 0 SEEN /hpf (0-5)
[2020-05-12 08:01] LABS: Color, Urine Yellow (Yellow); Glucose, Dipstick Normal (Normal); Ketone-Dipstick 5 mg/dl (Negative); Leukocyte Esterase-Dipstick Negative /ul (Negative); Nitrite-Dipstick Negative (Negative); Occult Blood-Urine Negative /ul (Negative); Protein-Dipstick 15 mg/dl (Negative); Urine Bilirubin Dipstick Negative (Negative); Urine Clarity Clear (Clear); Urine Urobilinogen Normal (Normal)
[2020-05-12 08:05] LABS: Mucous, Urine RARE /hpf (<or=2+); Squamous Epithelial Cells - UA 0-5 SEEN /hpf (5-10)
[2020-05-12 08:07] LABS: Lactic Acid 1.6 mmol/L (0.4-1.9)
[2020-05-12] MEDS: Neomycin Sulfate/Polymyxin/Hc Susp 10 ML Bottle 4 DRP OTIC (09:01)
--- NOTE | 2020-05-12 09:19 | CT_ITS ---
STUDY: CTA CHEST REASON FOR EXAM: Female, 59 years old. Nausea and vomiting for 3 days. RADIATION DOSAGE (If Supplied By Facility): CTDIvol = ( 13.85 ) mGy, DLP = ( 494.63 ) mGycm TECHNIQUE: The examination was performed with the intravenous administration of IV 100mL Isovue-370. Post-processing of the angiographic images was performed, with multiplanar reformation and 3D reconstruction. Individualized dose optimization techniques were used for this CT. COMPARISON: None. FINDINGS: Normal enhancement of the main pulmonary artery and right and left pulmonary arteries. Normal enhancement of the bilateral peripheral pulmonary arteries. There is no demonstrated pulmonary embolism. Normal thoracic aorta and visualized great vessels. There is no demonstrated aortic dissection. Normal heart and pericardium. Normal mediastinum. Normal hilar regions. Normal visualized trachea and bronchi. The lungs are well expanded. Prominence of the pulmonary vasculature. Atelectatic changes in both lower lobes. Mild hazy granular opacities in the lower lungs worse in the right lower lobe suspicious for early infiltrate/pneumonia. There are no pleural effusions. Normal chest wall structures. Probable hemangioma T7. No demonstrated acute osseous changes. Enlargement of the left lobe of the liver extending anterior to the spleen. No demonstrated acute process. CT/CTA Chest W/WO Contrast IMPRESSION: 1. No evidence of pulmonary embolism or aortic dissection. 2. Atelectatic changes in both lower lobes and mild groundglass in the right lower lung. Early pneumonic process cannot excluded. 3. Pulmonary venous congestion. Electronically Signed: Sincere Carrera MD at 9:39 EST Tel , Service support ,
--- NOTE | 2020-05-12 09:57 | NURSING ---
DR AVALOS FOR DR LINDSEY
[2020-05-12] MEDS: levoFLOXacin IV 750 MG/150 ML BAG 100 MG IV (10:17)
[2020-05-12] MEDS: Acetaminophen 500 MG Tablet 1000 MG PO (12:08)
--- NOTE | 2020-05-12 15:03 | NURSING ---
MED SURG TERELETSKY PNEUMONIA, HYPOXIA
[2020-05-12 16:15] LABS: Bedside Glucose 193 mg/dL (70-110)
[2020-05-12] MEDS: 0.9% Saline Lock 10 ML Syringe IV (16:52)
[2020-05-12] MEDS: Furosemide 20 MG/2 ML VIAL IV (16:52)
[2020-05-12] MEDS: Insulin Lispro 100 UNIT/ML INSULN.PEN SC ×2 (16:56→22:20)
--- NOTE | 2020-05-12 18:05 | HP.PCM_ITS ---
Problem List (1) Nausea & vomiting Status: Acute Qualifiers: Vomiting type: unspecified Vomiting Intractability: unspecified Qualified Code(s): R11.2 - Nausea with vomiting, unspecified (2) Hypoxia Status: Acute History of Present Illness Date of Admission: 05/12/20 Chief Complaint: Hypoxia, nausea and vomiting The patient is a 59 year old F was seen in the emergency room at [facility] with a chief complaint of persistent nausea and vomiting over the past 24 hours. When she was picked up by squad she was noted to be hypoxic on room air, patient had no oxygen at home and had no history of any lung issues. Work-up in the emergency room included labs that were remarkable for a white blood cell count of 18.4, creatinine was elevated at 1.06, analysis was unremarkable, patient had a rapid Covid test that was negative as well as a PCR Covid test that was negative. Patient's glucose was elevated at 205. Patient had a CTA of the chest which revealed no evidence of pulmonary emboli, there are atelectatic changes in both lower lobes with mild groundglass appearance in the right lower lung. There was also noted to be pulmonary venous congestion. Patient had a respiratory panel performed which was negative for any tested viruses. Patient will be admitted for acute sepsis secondary to community-acquired pneumonia, hypoxia secondary to community-acquired pneumonia, and nausea and vomiting. Patient was given antibiotics in the emergency room these will be continued, pulse ox will be monitored. Urine antigens will be obtained and patient will have a sputum culture submitted if she is able to give one. Past Medical History Past Medical History (Chronic Problems): Chronic Problems (Last Updated 05/12/20 @ 18:[address] Caleb Galeano DO) Spondylosis of lumbar region without myelopathy or radiculopathy (Chronic) Low back pain (Chronic) Low back pain (Chronic) Medical History: Medical History (Last Updated 05/12/20 @ 18:[address] Caleb Galeano DO) Influenza A (Resolved) J10.1 Hypoxia (Acute) R09.02 Reactive airway disease (Resolved) J45.909 Viral syndrome (Resolved) B34.9 Spondylosis of lumbar region without myelopathy or radiculopathy (Chronic) M47.816 Low back pain (Chronic) M54.5 Bahena's esophagus K22.70 Diabetes E11.9 Fatigue R53.83 GERD (gastroesophageal reflux disease) K21.9 Nausea R11.0 Obesity E66.9 Sleep apnea G47.30 Hypertension I10 Allergies Penicillins Allergy (Verified 04/24/20 09:27) Hives Home Medications: Ambulatory Orders Medication Instructions Recorded Lisinopril [Zestril] 40 mg PO DAILY 06/08/14 Amlodipine [Norvasc] 10 mg PO QHS 04/08/18 Duloxetine Hcl [Cymbalta] 60 mg PO QHS 04/08/18 Pramipexole Di-HCl [Mirapex] 0.5 mg PO QHS 04/08/18 metFORMIN HCl [Glucophage] 1,000 mg PO BIDCM 04/08/18 Albuterol IH (ProAir) [Proair Hfa] 1 puff INHALATION Q4H PRN PRN #1 06/24/19 inhaler atenolol 50 mg tablet 100 mg PO DAILY tab 03/06/20 esomeprazole magnesium 40 mg 40 mg PO BID cap 03/06/20 capsule,delayed release glipizide 10 mg tablet, extended 10 mg PO BID tab 03/06/20 release 24 hr insulin degludec 100 unit/mL (3 36 unit SC DAILY ml 03/06/20 mL) subcutaneous pen Dulaglutide [Trulicity] 1 injectable SQ QWEEK 05/12/20 Magnesium Oxide 500 mg PO DAILY 05/12/20 Surgical History: Surgical History (Last Updated 03/06/20 @ 09:33 by Sophy Singletary) History of carpal tunnel release Z98.890 History of cholecystectomy Z90.49 History of tubal ligation Z98.51 Surgical History: cholecystectomy, - - Tubal ligation, carpal tunnel surgery Psychiatric History: No pertinent psych hx 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 Lives: With Family Smoking Status: Former smoker Tobacco Use: Non-smoker Alcohol: None Drugs: None - *Family History Maternal Family History: Family History (Last Updated 03/06/20 @ 09:34 by Sophy Singletary) Father Cancer Mother Diabetes Sister Diabetes History Items: - Paternal Family History: Family History (Last Updated 03/06/20 @ 09:34 by Sophy Singletary) Father Cancer Mother Diabetes Sister Diabetes History Items: Cancer Review of Systems Constitutional: Denies: Anorexia, Chills, Fever, Night Sweats, Malaise, Weakness, Weight Change, Fatigue Eyes: Denies: Conjunctivae Inflammation, Double vision, Drainage HEENT: Denies: Difficulty Swallowing, Dysphasia, Ear Pain, Eye Pain, Hearing Changes, Nasal bleeding, Nasal Congestion, Post Nasal Drip Cardiovascular: Denies: Chest Pain, Claudication, Chest Pressure, Chest Tightness, Edema, Palpitations Respiratory: Denies: Cough, Hemoptysis, Pleuritic Pain, Shortness of Breath, Shortness of breath at rest, Shortness of breath upon exertion, Sputum production Gastrointestinal: Reports: Nausea, Vomiting. Denies: Abdominal Pain, Constipation, Diarrhea, Hematemesis, Hematochezia, Melena Genitourinary: Denies: Dysuria, Frequency, Hematuria, Hesitancy, Nocturia, Urgency Musculoskeletal: Reports: Back Pain. Denies: Foot Pain, Hand Pain, Joint Pain, Joint stiffness, Joint swelling, Joint Tenderness, Leg Pain Skin: Denies: Dryness, Jaundice, Pruritis, Rash Neurological: Denies: Blurred vision, Double vision, Slurred speech, Difficulty swallowing, Focal weakness, Numbness, Tingling Psychiatric: Denies: Anxiety, Depression, Homicidal Ideations, Suicidal Ideations Endocrine: Denies: Change in Body Habitus, Heat/ Cold Intolerance, Polydipsia, Polyuria Hematologic/ Lymphatic: Denies: Adenopathy, Anemia, Easy Bruising, Easy Bleeding, Petechiae, Purpura VTE Information - Inpt Only VTE Present on Admission: No VTE Mechan Device Prophylaxis: None VTE Pharm Prophylaxis ordered?: Yes Patient Problems: Active and Suspected Problems (Last Updated 05/12/20 @ 18:[address] Caleb Galeano, DO) Nausea & vomiting (Acute) History of Bahena's esophagus (Acute) Hypoxia (Acute) - Physical Exam Vitals/I&O's: Vital Signs Temp Pulse Resp BP Pulse Ox 97.8 F 98 18 152/78 H 95 05/12/20 16:12 05/12/20 16:12 05/12/20 16:12 05/12/20 16:12 05/12/20 16:12 Oxygen Flow Rate (L/min) 4 Oxygen Delivery Method Nasal Cannula Weight: 120.202 kg Body Mass Index (BMI) 44.1 Intake and Output for Last 24 Hours 05/10/20 05/11/20 05/12/20 23:59 23:59 23:59 Intake Total 1150 / 1150 Balance 1150 / 1150 General: Alert, Oriented x3, Cooperative, No apparent distress, Well developed, Well nourished HEENT: Atraumatic, PERRLA, EOMI, Normocephalic Oral: Moist Mucosa Neck: Supple, No JVD, Negative Carotid Bruits, No Nuchal Rigidity, Trachea Midline, Thyroid Normal Size and Texture Lungs: Clear to auscultation, Normal air movement, No rhonchi, No wheeze, No rales Cardiovascular: Regular rate, Regular Rhythm, Normal S1, Normal S2, No murmurs, PMI Normal, No rub noted, No Gallop Abdomen: Bowel Sounds Present, Soft, Non Tender, Non-Distended Extremities: No clubbing, No cyanosis, No edema, Capillary Refill Less than 3 Seconds Skin: No rashes, No breakdown Musculoskeletal: No Tenderness to Palpation of Joints or Extremities Neurological: Cranial nerves II-XII grossly intact, Neuro grossly intact, Sensory exam intact to light touch and pain Psych/Mental Status: Normal Affect, Appropriate, Alert and oriented to time, place, person, mood and affect Microbiology Past 72 Hours 05/12/20 10:09 Mucosa - Nose Respiratory Panel (PCR) - Final 05/12/20 10:09 Mucosa - Nose Influenza Types A,B Direct FA (MIKAEL) - Final 05/12/20 06:55 Mucosa - Nose SARS-CoV-2 Antigen (Rapid) - Final Laboratory Results 05/12/20 06:35: WBC 18.4 H, RBC 4.48, Hgb 10.5 L, Hct 36.6 L, MCV 81.7, MCH 23.4 L, MCHC 28.7 L, RDW Std Deviation 44.7 H, RDW Coeff of Moris 15.0 H, Plt Count 453 H, MPV 9.7, Immature Gran % (Auto) 2.000 H, Neut % (Auto) 81.9 H, Lymph % (Auto) 10.0 L, Vance % (Auto) 5.2, Eos % (Auto) 0.3, Baso % (Auto) 0.6, Absolute Neuts (auto) 15.1 H, Absolute Lymphs (auto) 1.84, Nucleated RBC % 0.2 05/12/20 06:35: Sodium 137, Potassium 4.6, Chloride 99, Carbon Dioxide 32.0, Anion Gap 6, BUN 18, Creatinine 1.06 H, Estim Creat Clear Calc 50.15, Est GFR (MDRD) Af Amer 68, Est GFR (MDRD) Non-Af 56 L, BUN/Creatinine Ratio 17.0, Glucose 205 H, Calcium 8.6, Troponin I < 0.015 05/12/20 07:30: Lactic Acid 1.6 05/12/20 07:55: Urine Color Yellow, Urine Clarity Clear, Urine pH 5.0, Ur Specific [place] 1.020, Urine Protein 15 H, Urine Glucose (UA) Normal, Urine Ketones 5 H, Urine Occult Blood Negative, Urine Nitrite Negative, Urine Bilirubin Negative, Urine Urobilinogen Normal, Ur Leukocyte Esterase Negative, Urine RBC 0 SEEN, Urine WBC 0 SEEN, Ur Squamous Epith Cells 0-5 SEEN, Urine Bacteria 0 SEEN, Urine Mucus RARE 05/12/20 10:09: COVID-19 (MELA) Not Detected 05/12/20 16:05: POC Glucose 193 H Current Medications Albuterol Sulfate (Albuterol 2.5 Mg/3 Ml Vial.Neb.) 2.5 mg INHALATION Q2H PRN PRN PRN Reason: Shortness of Breath/Wheezing Albuterol Sulfate (Albuterol 2.5 Mg/3 Ml Vial.Neb.) 2.5 mg INHALATION Q6HWA.RT [facility] Amlodipine Besylate (Amlodipine 10 Mg Tablet) 10 mg PO QHS [facility] Atenolol (Atenolol 100 Mg Tablet) 100 mg PO DAILY [facility] Duloxetine HCl (Duloxetine Hcl 60 Mg Capsule) 60 mg PO QHS [facility] Enoxaparin Sodium (Enoxaparin 40 Mg/0.4 Ml Syringe) 40 mg SC DAILY [facility] Levofloxacin (Levaquin Iv) 750 mg in 150 mls @ 100 mls/hr IV Q24 [facility] Insulin Glargine (Insulin Glargine 100 Units/Ml Pen) 40 units SC SUPPER [facility] Insulin Human Lispro (Insulin Lispro 100 Unit/Ml Insuln.Pen) 0 unit SC ACHS [facility]; Protocol Last Admin: 05/12/20 16:56 Dose: 2 u Documented by: Lisinopril (Lisinopril 40 Mg Tablet) 40 mg PO DAILY [facility] Neomycin/Polymyxin/Hydrocortisone (Neomycin Sulfate/Polymyxin/Hc Susp 10 Ml Bottle) 4 drop OTIC Q6H REBECCA Last Admin: 05/12/20 16:23 Dose: Not Given Documented by: Ondansetron HCl (Ondansetron 4 Mg/2 Ml Vial) 4 mg IV Q6H PRN PRN PRN Reason: NAUSEA/VOMITING Pantoprazole Sodium (Pantoprazole Sodium 40 Mg Tablet) 40 mg PO BID [facility] Pramipexole Dihydrochloride (Pramipexole Di-Hcl 0.5 Mg Tablet) 0.5 mg PO QHS [facility] Sodium Chloride (0.9% Saline Lock 10 Ml Syringe) 10 - 40 ml IV UD PRN PRN Reason: SALINE FLUSH Last Admin: 05/12/20 16:52 Dose: 10 ml Documented by: Temazepam (Temazepam 15 Mg Capsule) 15 mg PO QHS PRN PRN PRN Reason: INSOMNIA Assessment/Plan All Active Problems (Last Updated 05/12/20 @ 18:[address] Caleb Galeano, DO) Nausea & vomiting (Acute) Epigastric pain (Resolved) History of Bahena's esophagus (Acute) Influenza A (Resolved) Hypoxia (Acute) Reactive airway disease (Resolved) Viral syndrome (Resolved) #1 sepsis secondary to community-acquired pneumonia-patient will be admitted to [facility] 3, she will be continued on Levaquin. #2 hypoxia secondary to community-acquired pneumonia-pulse ox will be monitored #3 community-acquired pneumonia-organism unknown at this time #4 morbid obesity #5 type 2 diabetes #6 chronic lumbar back pain #7 essential hypertension #8 history of Bahena's esophagus Patient's CTA of her chest was read out as showing pulmonary congestion, will obtain a BNP to check for signs of congestive heart failure. Inpatient E&M: 21342 Init Hosp L3
[2020-05-12 19:02] LABS: BNP,B-Type NATRIURETIC PEPTIDE 163.1 pg/mL (0-100)
[2020-05-12] MEDS: Albuterol 2.5 MG/3 ML VIAL.NEB. INHALATION (20:47)
[2020-05-12] MEDS: amLODIPine 10 MG Tablet PO (22:20)
[2020-05-12] MEDS: DULoxetine Hcl 60 MG Capsule PO (22:20)
[2020-05-12] MEDS: Pramipexole Di-HCl 0.5 MG Tablet PO (22:20)
[2020-05-12] MEDS: Pantoprazole Sodium 40 MG Tablet PO (22:20)
[2020-05-12 22:26] LABS: Bedside Glucose 191 mg/dL (70-110)
[2020-05-12] MEDS: Neomycin/Polymyxin/Dexameth 5ML OPTH.BTL 4 DRP LEFT EAR (23:43)
[2020-05-13] VITALS (10 sets, daily range): BP systolic 111–134; BP diastolic 59–69; PULSE 72–89; RESP 12–20; TEMP 36.1–36.7; O2SAT 92–98
[2020-05-13] MEDS: Ondansetron 4 MG/2 ML Vial IV (00:10)
[2020-05-13] MEDS: 0.9% Saline Lock 10 ML Syringe IV ×5 (00:10→17:12)
[2020-05-13] MEDS: Furosemide 20 MG/2 ML VIAL IV (02:10)
[2020-05-13] MEDS: Metoclopramide 10 MG/2 ML Vial IV ×2 (02:10→12:32)
[2020-05-13 04:58] LABS: Absolute Lymphocyte Count 1.54 X10^3/uL (0.83-4.51); Absolute Neutrophil Count 12.6 X10^3/uL (2.0-7.7); Basophil# 0.09 X10^3/uL; Basophil% 0.6 % (0-1); Eosinophil# 0.08 X10^3/uL; Eosinophils% 0.5 % (0-5); Hematocrit 35.7 % (37-47); Hemoglobin 10.2 g/dL (12.0-15.0); Lymphocyte # 1.54 X10^3/ul (4.0); Mean Corp Hgb Conc 28.6 g/dL (32-36); Mean Corpuscular Hgb 23.7 pg (27.0-32.0); Mean Corpuscular Volume 82.8 fL (81-99); Mean Platelet Vol. 9.3 fl (6.2-12.0); Monocyte# 0.92 X10^3/uL; NRBC Flagged by Analyzer 0 % (0-5); Neutrophil # 12.63 X10^3/uL (2.7-7.7); Neutrophil % 81.6 % (47-70); Platelet Count 389 K/mm3 (150-450); RBC Distribution Width SD 45.9 fl (35.1-43.9); Red Blood Count 4.31 M/mm3 (4.2-5.4); White Blood Count 15.5 K/mm3 (4.4-11.0)
[2020-05-13] MEDS: Neomycin/Polymyxin/Dexameth 5ML OPTH.BTL 4 DRP LEFT EAR ×3 (06:51→17:18)
[2020-05-13 06:56] LABS: Bedside Glucose 147 mg/dL (70-110)
[2020-05-13] MEDS: Albuterol 2.5 MG/3 ML VIAL.NEB. INHALATION ×3 (07:14→20:12)
[2020-05-13] MEDS: levoFLOXacin IV 750 MG/150 ML BAG 100 MG IV (09:10)
[2020-05-13] MEDS: Enoxaparin 40 MG/0.4 ML Syringe SC (09:13)
[2020-05-13] MEDS: Atenolol 100 MG Tablet PO (09:14)
[2020-05-13] MEDS: Lisinopril 40 MG Tablet PO (09:14)
[2020-05-13] MEDS: Pantoprazole Sodium 40 MG Tablet PO ×2 (09:14→21:41)
[2020-05-13] MEDS: Ibuprofen 400 MG Tablet PO ×2 (11:09→19:09)
[2020-05-13 11:55] LABS: Bedside Glucose 195 mg/dL (70-110)
[2020-05-13] MEDS: Insulin Lispro 100 UNIT/ML INSULN.PEN SC ×2 (12:23→21:42)
--- NOTE | 2020-05-13 16:29 | ECHOCS_ITS ---
Reason For Study: CHF Procedure This was a 2D Doppler, Color Flow transthoracic echocardiogram. The study was technically difficult. Contrast injection was performed. Exam performed portable in patient room. Left Ventricle Normal LV size. Left ventricular systolic function is normal. The estimated ejection fraction is 65 %. Stage 1 diastolic dysfunction. No regional wall motion abnormalities noted. Right Ventricle Normal RV size. Normal systolic function. Atria Normal left atrium. Normal right atrium. Mitral Valve Normal mitral valve. Tricuspid Valve Normal tricuspid valve. Mild (1+) tricuspid valve insufficiency. Pulmonary artery systolic pressure is 40 mmHg. Aortic Valve Normal aortic valve. Pulmonic Valve The pulmonic valve is not well visualized. Great Vessels Normal aortic root. The pulmonary artery is normal size. Normal inferior vena cava. Pericardium/Pleural No pericardial effusion. Medication Diluted definity 4ml given slow IV push to enhance endocardial definition. MMode/2D Measurements & Calculations LVIDd: 4.8 cm IVSd: 1.1 cm Ao root diam: 3.6 cm LVIDs: 3.0 cm LVPWd: 0.96 cm RVDd: 3.9 cm FS: 37.7 % LAV(MOD-bp): 45.6 ml LA A4 area: 16.8 cm2 RA A4 area: 14.2 cm2 LAV(MOD-bp) Indexed: 20.5 ml/m2 LAV(MOD-sp2): 43.0 ml LAV(MOD-sp4): 43.6 ml Time Measurements MV dec time: 0.19 sec Doppler Measurements & Calculations MV E max avery: 108.3 cm/sec Lat Peak E' Avery: 9.8 cm/sec Med Peak E' Avery: 6.6 cm/sec MV A max avery: 121.2 cm/sec E/E' lat: 11.0 E/E' med: 16.3 MV E/A: 0.89 MV V2 max: 118.5 cm/sec MV P1/2t max avery: 105.7 cm/sec Ao V2 max: 165.7 cm/sec MV max P.6 mmHg MV P1/2t: 99.4 msec Ao max P.0 mmHg MV V2 mean: 67.9 cm/sec MV dec slope: 311.6 cm/sec2 MV mean P.2 mmHg MV V2 VTI: 32.8 cm MVA(P1/2t): 2.2 cm2 LV V1 max: 136.5 cm/sec PA V2 max: 88.6 cm/sec TR max avery: 304.9 cm/sec LV V1 max P.4 mmHg TR max P.2 mmHg Interpretation Summary Normal LV size. Left ventricular systolic function is normal. The estimated ejection fraction is 65 %. Stage 1 diastolic dysfunction. Pulmonary artery systolic pressure is 40 mmHg. Contrast injection was performed. Ordering Physician: Caleb Galeano Referring Physician: Kate Spencer Performed By: Kota Pan RCS
--- NOTE | 2020-05-13 16:32 | PN_ITS ---
Patient Problems: Active and Suspected Problems (Last Updated 05/12/20 @ 18:[address] Caleb Galeano, DO) Nausea & vomiting (Acute) History of Bahena's esophagus (Acute) Hypoxia (Acute) Subjective: She was seen and examined today, she is still requiring supplemental oxygen at 3 L/min. I have decided to give the patient another dose of Lasix today, I have decided to get an echocardiogram on the patient. Patient's beta natruretic peptide was slightly elevated which may indicate she has component of congestive heart failure. I will repeat the patient's labs tomorrow and get a chest x-ray. Objective: General: Alert, Oriented x3, Cooperative, No apparent distress, Well developed, Well nourished HEENT: Atraumatic, PERRLA, EOMI, Normocephalic Oral: Moist Mucosa Neck: Supple, No JVD, Negative Carotid Bruits, No Nuchal Rigidity, Trachea Midline, Thyroid Normal Size and Texture Lungs: Clear to auscultation, Normal air movement, No rhonchi, No wheeze, No rales Cardiovascular: Regular rate, Regular Rhythm, Normal S1, Normal S2, No murmurs, PMI Normal, No rub noted, No Gallop Abdomen: Bowel Sounds Present, Soft, Non Tender, Non-Distended Extremities: No clubbing, No cyanosis, No edema, Capillary Refill Less than 3 Seconds Skin: No rashes, No breakdown Musculoskeletal: No Tenderness to Palpation of Joints or Extremities Neurological: Cranial nerves II-XII grossly intact, Neuro grossly intact, Sensory exam intact to light touch and pain Psych/Mental Status: Normal Affect, Appropriate, Alert and oriented to time, place, person, mood and affect - Physical Exam Vitals/I&O's: Vital Signs Temp Pulse Resp BP Pulse Ox 98.0 F 79 18 111/61 93 05/13/20 15:05/13/20 15:01 05/13/20 15:05/13/20 15:05/13/20 15:01 Oxygen Flow Rate (L/min) 3 Oxygen Delivery Method Nasal Cannula Weight: 120.202 kg Body Mass Index (BMI) 44.1 Intake and Output for Last 24 Hours 05/11/20 05/12/20 05/13/20 23:59 23:59 23:59 Intake Total 1650 / 1650 750 / 750 Output Total 300 / 300 Balance 1650 / 1650 450 / 450 Microbiology Past 72 Hours 05/12/20 18:25 Urine, Random Streptococcus pneumoniae Antigen (M - Final 05/12/20 18:25 Urine, Clean Catch Legionella Antigen - Final 05/12/20 10:09 Mucosa - Nose Respiratory Panel (PCR) - Final 05/12/20 10:09 Mucosa - Nose Influenza Types A,B Direct FA (MIKAEL) - Final 05/12/20 06:55 Mucosa - Nose SARS-CoV-2 Antigen (Rapid) - Final Laboratory Results 05/12/20 22:15: POC Glucose 191 H 05/12/20 : B-Natriuretic Peptide 163.1 H 05/13/20 04:45: WBC 15.5 H, RBC 4.31, Hgb 10.2 L, Hct 35.7 L, MCV 82.8, MCH 23.7 L, MCHC 28.6 L, RDW Std Deviation 45.9 H, RDW Coeff of Moris 15.0 H, Plt Count 389, MPV 9.3, Immature Gran % (Auto) 1.300 H, Neut % (Auto) 81.6 H, Lymph % (Auto) 10.0 L, Wise % (Auto) 6.0, Eos % (Auto) 0.5, Baso % (Auto) 0.6, Absolute Neuts (auto) 12.6 H, Absolute Lymphs (auto) 1.54, Nucleated RBC % 0 05/13/20 06:49: POC Glucose 147 H 05/13/20 11:53: POC Glucose 195 H Current Medications Albuterol Sulfate (Albuterol 2.5 Mg/3 Ml Vial.Neb.) 2.5 mg INHALATION Q2H PRN PRN PRN Reason: Shortness of Breath/Wheezing Albuterol Sulfate (Albuterol 2.5 Mg/3 Ml Vial.Neb.) 2.5 mg INHALATION Q6HWA.RT [facility] Last Admin: 05/13/20 13:21 Dose: 2.5 mg Documented by: Amlodipine Besylate (Amlodipine 10 Mg Tablet) 10 mg PO QHS [facility] Last Admin: 05/12/20 22:20 Dose: 10 mg Documented by: Atenolol (Atenolol 100 Mg Tablet) 100 mg PO DAILY [facility] Last Admin: 05/13/20 09:14 Dose: 100 mg Documented by: Duloxetine HCl (Duloxetine Hcl 60 Mg Capsule) 60 mg PO QHS [facility] Last Admin: 05/12/20 22:20 Dose: 60 mg Documented by: Enoxaparin Sodium (Enoxaparin 40 Mg/0.4 Ml Syringe) 40 mg SC DAILY [facility] Last Admin: 05/13/20 09:13 Dose: 40 mg Documented by: Furosemide (Furosemide 40 Mg/4 Ml Vial) 40 mg IV X1 ONE Stop: 05/13/20 16:31 Levofloxacin (Levaquin Iv) 750 mg in 150 mls @ 100 mls/hr IV Q24 [facility] Last Infusion: 05/13/20 10:40 Dose: Infused Documented by: Ibuprofen (Ibuprofen 400 Mg Tablet) 400 mg PO Q6H PRN PRN PRN Reason: Pain Score 1-10 Last Admin: 05/13/20 11:09 Dose: 400 mg Documented by: Insulin Glargine (Insulin Glargine 100 Units/Ml Pen) 40 units SC SUPPER [facility] Last Admin: 05/12/20 18:09 Dose: 40 u Documented by: Insulin Human Lispro (Insulin Lispro 100 Unit/Ml Insuln.Pen) [address] [facility]; Protocol Last Admin: 05/13/20 12:23 Dose: 2 u Documented by: Lisinopril (Lisinopril 40 Mg Tablet) 40 mg PO DAILY [facility] Last Admin: 05/13/20 09:14 Dose: 40 mg Documented by: Metoclopramide HCl (Metoclopramide 10 Mg/2 Ml Vial) 10 mg IV Q6H PRN PRN PRN Reason: NAUSEA/VOMITING Last Admin: 05/13/20 12:32 Dose: 10 mg Documented by: Neomycin/Polymyxin/Dexamethasone (Neomycin/Polymyxin/Dexameth 5ml Opth.Btl) 4 drop LEFT EAR Q6 [facility] Stop: 05/19/20 18:01 Last Admin: 05/13/20 12:24 Dose: 4 drop Documented by: Pantoprazole Sodium (Pantoprazole Sodium 40 Mg Tablet) 40 mg PO BID [facility] Last Admin: 05/13/20 09:14 Dose: 40 mg Documented by: Pramipexole Dihydrochloride (Pramipexole Di-Hcl 0.5 Mg Tablet) 0.5 mg PO QHS [facility] Last Admin: 05/12/20 22:20 Dose: 0.5 mg Documented by: Sodium Chloride (0.9% Saline Lock 10 Ml Syringe) 10 - 40 ml IV UD PRN PRN Reason: SALINE FLUSH Last Admin: 05/13/20 12:32 Dose: 10 ml Documented by: Temazepam (Temazepam 15 Mg Capsule) 15 mg PO QHS PRN PRN PRN Reason: INSOMNIA Medical Necessity - Tobacco Use Smoking Status: Former smoker Tobacco Use: Non-smoker Assessment/Plan All Active Problems (Last Updated 05/12/20 @ 18:[address] Caleb Galeano, DO) Nausea & vomiting (Acute) Epigastric pain (Resolved) History of Bahena's esophagus (Acute) Influenza A (Resolved) Hypoxia (Acute) Reactive airway disease (Resolved) Viral syndrome (Resolved) #1 sepsis secondary to community-acquired pneumonia-continue with Levaquin, blood cultures pending, patient CBC is improved #2 hypoxia secondary to community-acquired pneumonia-pulse ox will be monitored #3 community-acquired pneumonia-organism unknown at this time, patient's urine antigens were negative #4 morbid obesity #5 type 2 diabetes #6 chronic lumbar back pain #7 essential hypertension #8 history of Bahena's esophagus #9 possible congestive heart failure-patient will have an echocardiogram tomorrow, she may have a component of diastolic congestive heart failure. I have given her 1 dose of Lasix today. Inpatient E&M: 35540 Subs Hosp L2
[2020-05-13 17:10] LABS: Bedside Glucose 116 mg/dL (70-110)
[2020-05-13] MEDS: Furosemide 40 MG/4 ML Vial IV (17:11)
[2020-05-13 20:46] LABS: Base Excess 13 mmol/L (-2 to +2); Bicarbonate 38.8 mmol/L (22-26); Blood Gas Specimen Type ART; O2 Delivery Device Cannula; PO2 68 mmHG (75-100); SITE R Radial; SO2 91 % (95-99); Total Carbon Dioxide 41 mmol/L; pCO2 73.9 mmHg (35-45); pH 7.33 (7.35-7.45)
--- NOTE | 2020-05-13 20:48 | CPS ---
critical abg results called to hospitalist
[2020-05-13] MEDS: amLODIPine 10 MG Tablet PO (21:41)
[2020-05-13] MEDS: Pramipexole Di-HCl 0.5 MG Tablet PO (21:41)
[2020-05-13 22:15] LABS: Bedside Glucose 183 mg/dL (70-110)
[2020-05-14] VITALS (7 sets, daily range): BP systolic 118–139; BP diastolic 45–69; PULSE 71–87; RESP 16–21; TEMP 36.2–37.1; O2SAT 93–96
[2020-05-14] MEDS: Neomycin/Polymyxin/Dexameth 5ML OPTH.BTL 4 DRP LEFT EAR ×4 (00:02→17:37)
--- NOTE | 2020-05-14 03:11 | CPS ---
pt refuses bipap at night
[2020-05-14] MEDS: Sodium Chloride 0.65% 1 SPRAY SPRAY.BTL 2 SPRAY NASAL ×2 (03:32→12:46)
[2020-05-14 04:56] LABS: Absolute Lymphocyte Count 3.01 X10^3/uL (0.83-4.51); Absolute Neutrophil Count 9.2 X10^3/uL (2.0-7.7); Basophil# 0.05 X10^3/uL; Basophil% 0.4 % (0-1); Eosinophil# 0.31 X10^3/uL; Eosinophils% 2.2 % (0-5); Hematocrit 36.1 % (37-47); Hemoglobin 10.2 g/dL (12.0-15.0); Lymphocyte # 3.01 X10^3/ul (4.0); Lymphocyte % 21.7 % (19-41); Mean Corp Hgb Conc 28.3 g/dL (32-36); Mean Corpuscular Hgb 23.4 pg (27.0-32.0); Mean Platelet Vol. 9.4 fl (6.2-12.0); Monocyte# 1.12 X10^3/uL; Monocyte% 8.1 % (0-10); NRBC Flagged by Analyzer 0 % (0-5); Neutrophil # 9.24 X10^3/uL (2.7-7.7); Neutrophil % 66.7 % (47-70); Platelet Count 382 K/mm3 (150-450); RBC Distribution Width CV 14.9 % (11.6-14.6); RBC Distribution Width SD 45.1 fl (35.1-43.9); Red Blood Count 4.35 M/mm3 (4.2-5.4); White Blood Count 13.9 K/mm3 (4.4-11.0)
[2020-05-14 05:10] LABS: Anion Gap 3 (5-15); BUN 20 mg/dL (7-18); BUN/Creat Ratio 20.4 RATIO (10-20); Calcium,Total 8.4 mg/dL (8.5-10.1); Chloride 99 mmol/L (98-107); Creatinine, Serum 0.98 mg/dL (0.55-1.02); EST Glomerular Filtration Rate 61 mL/min (>60); Est Glom Filt Rate - Afr Amer 74 mL/min (>60); Estimated Creatinine Clearance 54.25 ml/min; Glucose 121 mg/dL (74-106); Potassium 3.7 mmol/L (3.5-5.1); Sodium Level 140 mmol/L (136-145)
--- NOTE | 2020-05-14 05:55 | RAD_ITS ---
STUDY: X-RAY CHEST REASON FOR EXAM: Female, 59 years old. Hypoxia. Shortness of breath. Pneumonia. TECHNIQUE: PA and lateral views of the chest. COMPARISON: Chest, 05/12/2020. FINDINGS: well-expanded. Again seen is a groundglass densities at the lung bases. The upper lungs demonstrate improved aeration. There is no demonstrated pleural abnormality. Normal size heart. Normal mediastinum and edwina. Normal visualized pulmonary arteries. Normal visualized aortic arch and descending thoracic aorta. The thoracic spine is obscured by the mediastinum. Normal visualized ribs, clavicles, and shoulders. There is no demonstrated abnormality of the visualized soft tissue structures of the upper abdomen. RAD/Chest PA and Lateral IMPRESSION: Persisting groundglass densities at the lung bases. Electronically Signed: Dudley Wilcox DO at 22:59 EST Tel [phone], Service support ,
[2020-05-14] MEDS: Albuterol 2.5 MG/3 ML VIAL.NEB. INHALATION ×3 (06:36→20:58)
[2020-05-14] MEDS: Ibuprofen 400 MG Tablet PO ×2 (06:53→19:56)
[2020-05-14 07:01] LABS: Bedside Glucose 131 mg/dL (70-110)
--- NOTE | 2020-05-14 09:00 | PN_ITS ---
Patient Problems: Active and Suspected Problems (Last Updated 05/12/20 @ 18:[address] Caleb Galeano, DO) Nausea & vomiting (Acute) History of Bahena's esophagus (Acute) Hypoxia (Acute) Objective: Patient on 3.5 L of oxygen. Mild shortness of breath. No chest pain. No fever since admission. On 2 to 3 L of oxygen. Physical exam: General: Alert, Oriented x3, Cooperative, morbid obesity BMI 44.1 kg/m? HEENT: Atraumatic, PERRLA, EOMI, Normocephalic Oral: No Gingival or Mucosal Lesions/ Ulcerations Neck: Supple, No JVD, Negative Carotid Bruits Lungs: Air entry diminished in bilateral lung bases. No crepitation/rhonchi Cardiovascular: Regular rate, Regular Rhythm, Normal S1, Normal S2, No murmurs Abdomen: Bowel Sounds Present, Soft, Non Tender, Non-Distended : No renal angle tenderness. No suprapubic tenderness. Extremities: Bilateral 2+ leg edema, Capillary Refill Less than 3 Seconds Skin: No rashes, No breakdown Musculoskeletal: No Tenderness to Palpation of Joints or Extremities Neurological: Cranial nerves II-XII grossly intact, Deep Tendon Reflexes 2+/4 and Symmetrical, Neuro grossly intact Psych/Mental Status: Normal Affect, Appropriate. Vitals/I&O's: Vital Signs Temp Pulse Resp BP Pulse Ox 97.1 F L 86 21 H 118/54 L 96 05/14/20 03:30 05/14/20 06:36 05/14/20 06:36 05/14/20 03:30 05/14/20 06:36 Oxygen Flow Rate (L/min) 3.5 Oxygen Delivery Method Nasal Cannula Weight: 265 lb Body Mass Index (BMI) 44.1 Intake and Output for Last 24 Hours 05/12/20 05/13/20 05/14/20 23:59 23:59 23:59 Intake Total 1650 / 1650 1100 / 1100 Output Total 600 / 1600 1000 / 1000 Balance 1650 / 1650 500 / -500 -1000 / -1000 Microbiology Past 72 Hours 05/12/20 07:35 Blood Culture (Wb) - Left Hand Blood Culture - Preliminary No growth in 48 hours. 05/12/20 07:30 Blood Culture (Wb) - Anticubital Left Blood Culture - Preliminary No growth in 48 hours. 05/12/20 18:25 Urine, Random Streptococcus pneumoniae Antigen (M - Final 05/12/20 18:25 Urine, Clean Catch Legionella Antigen - Final 05/12/20 10:09 Mucosa - Nose Respiratory Panel (PCR) - Final 05/12/20 10:09 Mucosa - Nose Influenza Types A,B Direct FA (MIKAEL) - Final 05/12/20 06:55 Mucosa - Nose SARS-CoV-2 Antigen (Rapid) - Final Laboratory Results 05/13/20 11:53: POC Glucose 195 H 05/13/20 17:05: POC Glucose 116 H 05/13/20 20:38: Specimen Type ART, Sample Site R Radial, pH 7.33 L, Bicarbonate Actual 38.8 H, Total CO2 41, Base Excess 13 H, O2 Saturation 91 L, ABG pCO2 73.9 H*, ABG pO2 68 L, O2 Delivery Device Cannula, Liter Flow 3.0 05/13/20 21:39: POC Glucose 183 H 05/14/20 04:25: WBC 13.9 H, RBC 4.35, Hgb 10.2 L, Hct 36.1 L, MCV 83.0, MCH 23.4 L, MCHC 28.3 L, RDW Std Deviation 45.1 H, RDW Coeff of Moris 14.9 H, Plt Count 382, MPV 9.4, Immature Gran % (Auto) 0.900, Neut % (Auto) 66.7, Lymph % (Auto) 21.7, [place] % (Auto) 8.1, Eos % (Auto) 2.2, Baso % (Auto) 0.4, Absolute Neuts (auto) 9.2 H, Absolute Lymphs (auto) 3.01, Nucleated RBC % 0 05/14/20 04:25: Sodium 140, Potassium 3.7, Chloride 99, Carbon Dioxide 38.0 H, Anion Gap 3 L, BUN 20 H, Creatinine 0.98, Estim Creat Clear Calc 54.25, Est GFR (MDRD) Af Amer 74, Est GFR (MDRD) Non-Af 61, BUN/Creatinine Ratio 20.4 H, Glucose 121 H, Calcium 8.4 L 05/14/20 06:46: POC Glucose 131 H Current Medications Albuterol Sulfate (Albuterol 2.5 Mg/3 Ml Vial.Neb.) 2.5 mg INHALATION Q2H PRN PRN PRN Reason: Shortness of Breath/Wheezing Albuterol Sulfate (Albuterol 2.5 Mg/3 Ml Vial.Neb.) 2.5 mg INHALATION Q6HWA.RT [facility] Last Admin: 05/14/20 06:36 Dose: 2.5 mg Documented by: Amlodipine Besylate (Amlodipine 10 Mg Tablet) 10 mg PO QHS [facility] Last Admin: 05/13/20 21:41 Dose: 10 mg Documented by: Atenolol (Atenolol 100 Mg Tablet) 100 mg PO DAILY [facility] Last Admin: 05/13/20 09:14 Dose: 100 mg Documented by: Duloxetine HCl (Duloxetine Hcl 60 Mg Capsule) 60 mg PO QHS [facility] Last Admin: 05/12/20 22:20 Dose: 60 mg Documented by: Enoxaparin Sodium (Enoxaparin 40 Mg/0.4 Ml Syringe) 40 mg SC DAILY [facility] Last Admin: 05/13/20 09:13 Dose: 40 mg Documented by: Levofloxacin (Levaquin Iv) 750 mg in 150 mls @ 100 mls/hr IV Q24 [facility] Last Infusion: 05/13/20 10:40 Dose: Infused Documented by: Ibuprofen (Ibuprofen 400 Mg Tablet) 400 mg PO Q6H PRN PRN PRN Reason: Pain Score 1-10 Last Admin: 05/14/20 06:53 Dose: 400 mg Documented by: Insulin Glargine (Insulin Glargine 100 Units/Ml Pen) 40 units SC SUPPER [facility] Last Admin: 05/13/20 17:14 Dose: 40 u Documented by: Insulin Human Lispro (Insulin Lispro 100 Unit/Ml Insuln.Pen) 0 unit SC ACHS [facility]; Protocol Last Admin: 05/14/20 07:30 Dose: Not Given Documented by: Lisinopril (Lisinopril 40 Mg Tablet) 40 mg PO DAILY [facility] Last Admin: 05/13/20 09:14 Dose: 40 mg Documented by: Metoclopramide HCl (Metoclopramide 10 Mg/2 Ml Vial) 10 mg IV Q6H PRN PRN PRN Reason: NAUSEA/VOMITING Last Admin: 05/13/20 12:32 Dose: 10 mg Documented by: Neomycin/Polymyxin/Dexamethasone (Neomycin/Polymyxin/Dexameth 5ml Opth.Btl) 4 drop LEFT EAR Q6 [facility] Stop: 05/19/20 18:01 Last Admin: 05/14/20 06:50 Dose: 4 drop Documented by: Pantoprazole Sodium (Pantoprazole Sodium 40 Mg Tablet) 40 mg PO BID [facility] Last Admin: 05/13/20 21:41 Dose: 40 mg Documented by: Pramipexole Dihydrochloride (Pramipexole Di-Hcl 0.5 Mg Tablet) 0.5 mg PO QHS [facility] Last Admin: 05/13/20 21:41 Dose: 0.5 mg Documented by: Sodium Chloride (0.9% Saline Lock 10 Ml Syringe) 10 - 40 ml IV UD PRN PRN Reason: SALINE FLUSH Last Admin: 05/13/20 17:12 Dose: 10 ml Documented by: Sodium Chloride (Sodium Chloride 0.65% 1 Oxford Oxford.Btl) 2 spray NASAL TID PRN PRN PRN Reason: NASAL DRYNESS Last Admin: 05/14/20 03:32 Dose: 2 spray Documented by: Temazepam (Temazepam 15 Mg Capsule) 15 mg PO QHS PRN PRN PRN Reason: INSOMNIA STROKE Vital Signs/Narrative: Vital Signs Pulse Resp Pulse Ox 05/14/20 06:36 86 21 H 96 Medical Necessity - Tobacco Use Smoking Status: Former smoker Tobacco Use: Non-smoker Assessment/Plan All Active Problems (Last Updated 05/12/20 @ 18:[address] Caleb Galeano, DO) Nausea & vomiting (Acute) Epigastric pain (Resolved) History of Bahena's esophagus (Acute) Influenza A (Resolved) Hypoxia (Acute) Reactive airway disease (Resolved) Viral syndrome (Resolved) This 59-year-old female was admitted with persistent nausea vomiting for 24 hours along with shortness of breath and hypoxia. Leukocytosis 18.4 thousand. Rapid COVID-19 antigen and PCR test was negative. CTA chest no PE but mild pulmonary venous congestion and groundglass appearance in right lower lung and bilateral lower lobes atelectasis #1 sepsis secondary to right lower lobe community-acquired pneumonia-patient urinary antigens were negative. Blood cultures x2 - for more than 48 hours. On IV Levaquin. No fever, on 2 L of oxygen. Patient has leukocytosis with neutrophilia and mild lymphopenia. #2 Mild hypoxia secondary to community-acquired pneumonia or acute diastolic congestive heart failure-2D echo was done. BNP 163 but may be obviously low secondary to morbid obesity. Interpretation Summary Normal LV size. Left ventricular systolic function is normal. The estimated ejection fraction is 65 %. Stage 1 diastolic dysfunction. Pulmonary artery systolic pressure is 40 mmHg. Contrast injection was performed. #3 community-acquired pneumonia: As mentioned above #4 morbid obesity #5 type 2 diabetes blood sugars are controlled average about 150 mg/dL #6 chronic lumbar back pain #7 essential hypertension #8 history of Bahena's esophagus Inpatient E&M: 48234 Subs Hosp L2
[2020-05-14] MEDS: levoFLOXacin IV 750 MG/150 ML BAG 100 MG IV (09:20)
[2020-05-14] MEDS: Atenolol 100 MG Tablet PO (09:21)
[2020-05-14] MEDS: Lisinopril 40 MG Tablet PO (09:21)
[2020-05-14] MEDS: Enoxaparin 40 MG/0.4 ML Syringe SC (09:21)
[2020-05-14] MEDS: Pantoprazole Sodium 40 MG Tablet PO ×2 (09:21→21:41)
--- NOTE | 2020-05-14 10:25 | CASEMGMT ---
RN CM Face to Face with patient for initial transition planning/care coordination assessment. RN CM introduced self and role at [facility]. Patient lying in bed, alert and oriented. Patient willing to participate in assessment and is able to answer all questions appropriately. Care providers, pharmacy, and demographics verified. Patient wishes to discharge home, denies need for home health at this time. Patient states she has no further needs or concerns at this time. CM to follow for discharge planning needs that may arise. PCP: Johanna Specialists: none Preferred Pharmacy: [facility] Insurance: [address] Prescription Benefit: yes Living Will/HPOA: none LNOK: Daughter Living Arrangements:Patient lives with daughter and daughter's boyfriend in a mobile home with 1 step to enter. Patient states she is independent at home. Transportation: self/daughter DME/HHC: Patient states she has CPap machine at home but does not wear because she cannot tolerate it. Denies previous HHC. Will monitor for need for home oxygen at discharge. Disposition Plan: Patient to discharge home with family support and follow-up plans in place. Taylor RAHMAN, RN, CM
[2020-05-14 11:55] LABS: Bedside Glucose 212 mg/dL (70-110)
[2020-05-14] MEDS: Insulin Lispro 100 UNIT/ML INSULN.PEN SC ×2 (12:44→21:40)
[2020-05-14 16:21] LABS: Bedside Glucose 146 mg/dL (70-110)
[2020-05-14] MEDS: Furosemide 40 MG/4 ML Vial IV (17:21)
[2020-05-14] MEDS: 0.9% Saline Lock 10 ML Syringe IV (17:21)
--- NOTE | 2020-05-14 17:55 | RAD_ITS ---
HISTORY: right shoulder pain x 2 weeks after fall Exam: Right Shoulder 5 images of the right shoulder COMPARISON: None FINDINGS: # of images incl. paperwork: 5 XR Shoulder Min 2 Views: The humeral head is well-positioned within the glenoid fossa. No fracture or subluxation. The acromioclavicular joint is normal. The adjacent chest is unremarkable. RAD/Shoulder min 2 Views IMPRESSION: Normal Right shoulder. at 2128 Reported and signed by: Artem Dailey MD Electronically Signed: Artem Dailey MD at 21:27 EST Tel , Service support ,
[2020-05-14] MEDS: Pramipexole Di-HCl 0.5 MG Tablet PO (19:57)
[2020-05-14] MEDS: Temazepam 15 MG Capsule PO (21:41)
[2020-05-14] MEDS: amLODIPine 10 MG Tablet PO (21:41)
[2020-05-14 21:55] LABS: Bedside Glucose 212 mg/dL (70-110)
--- NOTE | 2020-05-15 00:02 | CPS ---
pt declines use of bipap machine, non compliant at home as well, but was asking more questions.
[2020-05-15] MEDS: Neomycin/Polymyxin/Dexameth 5ML OPTH.BTL 4 DRP LEFT EAR ×3 (00:06→11:06)
[2020-05-15 02:18] VITALS: BP 128/60; PULSE 77; RESP 18; TEMP 36.4; O2SAT 97
[2020-05-15] MEDS: Ibuprofen 400 MG Tablet PO ×2 (02:23→11:12)
[2020-05-15 06:45] VITALS: O2SAT 98
[2020-05-15 07:01] LABS: Bedside Glucose 134 mg/dL (70-110)
[2020-05-15 08:33] VITALS: BP 120/54; PULSE 74; RESP 18; TEMP 36.4; O2SAT 96
[2020-05-15] MEDS: 0.9% Saline Lock 10 ML Syringe IV (08:38)
[2020-05-15] MEDS: Furosemide 40 MG/4 ML Vial IV (08:38)
[2020-05-15] MEDS: levoFLOXacin IV 750 MG/150 ML BAG 100 MG IV (08:38)
[2020-05-15] MEDS: Atenolol 100 MG Tablet PO (08:39)
[2020-05-15] MEDS: Pantoprazole Sodium 40 MG Tablet PO (08:39)
[2020-05-15] MEDS: Enoxaparin 40 MG/0.4 ML Syringe SC (08:39)
[2020-05-15] MEDS: Lisinopril 40 MG Tablet PO (08:39)
[2020-05-15 09:03] VITALS: O2SAT 95
--- NOTE | 2020-05-15 09:25 | DCINST_ITS ---
- Discharge Diagnoses Current Active Problems: Current Active and Chronic Problems (Last Updated 05/12/20 @ 18:[address] Caleb Galeano, DO) Nausea & vomiting (Acute) History of Bahena's esophagus (Acute) Hypoxia (Acute) Spondylosis of lumbar region without myelopathy or radiculopathy (Chronic) Low back pain (Chronic) Low back pain (Chronic) You will use the following diet at home:: Calorie/Carbohydrate Controlled (specify 1200, 1400, etc) - carb controlled diet, Cardiac Your food should be the consistency of: Regular Discharge Activity: May Not Drive Weight Bearing Status: Weight bearing as tolerated Call your doctor if you observe: Fever of 101 or Higher, Coldness, Increased Pain, Numbness or Tingling, Change in Color, Inability to urinate, Inability to have a bowel movement, Shortness of breath, Dizziness, Fainting spells, Swelling in the ankles, Chest pain, Prolonged hiccoughing, Increased palpitations (irregular heartbeat), Calf discomfort, Uncontrolled pain Additional Instructions: Advised polysomnography, sleep titration study and PFT. Follow-up in pulmonary clinic Allergies/Adverse Reactions: Allergies Penicillins Allergy (Verified 04/24/20 09:27) Hives Medications to take at Discharge Lisinopril [Zestril] 40 mg PO DAILY 06/08/14 Amlodipine [Norvasc] 10 mg PO QHS 04/08/18 Duloxetine Hcl [Cymbalta] 60 mg PO QHS 04/08/18 Pramipexole Di-HCl [Mirapex] 0.5 mg PO QHS 04/08/18 metFORMIN HCl [Glucophage] 1,000 mg PO BIDCM 04/08/18 Albuterol IH (ProAir) [Proair Hfa] 1 puff INHALATION Q4H PRN PRN #1 inhaler 06/24/19 esomeprazole magnesium 40 mg capsule,delayed release 40 mg PO BID cap 03/06/20 glipizide 10 mg tablet, extended release 24 hr 10 mg PO BID tab 03/06/20 Dulaglutide [Trulicity] 1 injectable SQ QWEEK 05/12/20 Magnesium Oxide 500 mg PO DAILY 05/12/20 Atenolol 100 mg PO DAILY #0 tab 05/15/20 Guaifenesin [Mucinex] 1,200 mg PO BID #14 tab.er.12h 05/15/20 Insulin Degludec [Tresiba Flextouch U-100] 40 unit SC DAILY #0 ml 05/15/20 The following prescriptions were given: Guaifenesin [Mucinex] 1,200 mg PO BID #14 tab.er.12h Transmission Status: Pending to [facility] Primary Care Physician: Kate Spencer DO [Primary Care Provider] - Please follow up with your Primary Care Physician in: In 1 to 2 weeks Test Results: Test results from this visit will be discussed in further detail at your follow- up appointment, if applicable. Please Follow Up With: Roberto Crouch DO When: in 2 weeks with Yee Gonzalez CNP
--- NOTE | 2020-05-15 09:31 | PCM.DC.SUM ---
Discharge Date and Diagnosis - Problem List Patient Problems: Active and Suspected Problems (Last Updated 05/12/20 @ 18:[address] Caleb Galeano DO) Nausea & vomiting (Acute) History of Bahena's esophagus (Acute) Hypoxia (Acute) Date of Admission: 05/12/20 Date of Discharge: 05/15/20 - Primary Discharge Diagnosis Acute Problems: Active Problems (Last Updated 05/12/20 @ 18:[address] Caleb Galeano DO) Nausea & vomiting (Acute) History of Bahena's esophagus (Acute) Hypoxia (Acute) - Secondary Discharge Diagnosis Chronic Problems: Chronic Problems (Last Updated 05/12/20 @ 18:[address] Caleb Galeano DO) Spondylosis of lumbar region without myelopathy or radiculopathy (Chronic) Low back pain (Chronic) Low back pain (Chronic) Hospital Course and Treatment Operations: None Summary of Care Provided: This 59-year-old female was admitted with persistent nausea vomiting for 24 hours along with shortness of breath and hypoxia. Leukocytosis 18.4 thousand. Rapid COVID-19 antigen and PCR test was negative. CTA chest no PE but mild pulmonary venous congestion and groundglass appearance in right lower lung and bilateral lower lobes atelectasis #1 bilateral lower lobes atelectasis and venous congestion, less likely pneumonia-patient urinary antigens were negative. Blood cultures x2 - for more than 48 hours. Patient has leukocytosis with neutrophilia and mild lymphopenia. Patient pneumonia work-up was negative. Patient had 4 days of IV Levaquin 750 mg daily. No fever since admission. CT scan individually reviewed and does not show any pneumonic consolidation but groundglass opacity right lower lung. I am not totally convinced that patient had pneumonia. Pneumonia work-up was negative and patient does not need any further antibiotic. #2 Mild hypoxia secondary to acute diastolic congestive heart failure and obstructive sleep apnea-2D echo was done. BNP 163 but may be obviously low secondary to morbid obesity. Interpretation Summary Normal LV size. Left ventricular systolic function is normal. The estimated ejection fraction is 65 %. Stage 1 diastolic dysfunction. Pulmonary artery systolic pressure is 40 mmHg. Contrast injection was performed. #3 morbid obesity and obstructive sleep apnea: Follow-up in pulmonary clinic in 2 weeks with Yee Dawn. Discussed with Dr. Crouch. Need polysomnography and PFT. #5 type 2 diabetes blood sugars are controlled average about 150 mg/dL: Blood sugar are about 200. Tresiba dose increased to 40 units. Patient is on Trulicity, Metformin and glipizide. #6 chronic lumbar back pain #7 essential hypertension #8 history of Bahena's esophagus Discharge medication reconciliation done. Discharge follow-up instructions completed. Discharge process discussed with the patient and all questions were answered to patient's satisfaction. Patient is ambulatory in home and in the community and requires home oxygen with portability. Total time spent, exact 35 minutes on discharge meds reconciliation, examination, coordination of care with nurses and ancillary staff, review of imaging and blood test and discussion with the patient on follow-up instructions Patient Problems: Active and Suspected Problems (Last Updated 05/12/20 @ 18:[address] Caleb Galeano, DO) Nausea & vomiting (Acute) History of Bahena's esophagus (Acute) Hypoxia (Acute) Objective: Patient is not short of breath or wheezing. At rest, pulse ox 95% on room air. On ambulation it dropped to 87% on room air, 94% on 2 L of oxygen. Patient is diagnosed obstructive sleep apnea but has not used CPAP for last 5 years although she has at home. Patient is not sure driven if it is working or not. Afebrile Physical exam: General: Alert, Oriented x3, Cooperative, morbid obesity BMI 44.1 kg/m? HEENT: Atraumatic, PERRLA, EOMI, Normocephalic Oral: No Gingival or Mucosal Lesions/ Ulcerations Neck: Supple, No JVD, Negative Carotid Bruits Lungs: Air entry diminished in bilateral lung bases. No crepitation/rhonchi Cardiovascular: Regular rate, Regular Rhythm, Normal S1, Normal S2, No murmurs Abdomen: Bowel Sounds Present, Soft, Non Tender, Non-Distended : No renal angle tenderness. No suprapubic tenderness. Extremities: Ankle edema has resolved, Capillary Refill Less than 3 Seconds Skin: No rashes, No breakdown Musculoskeletal: No Tenderness to Palpation of Joints or Extremities Neurological: Cranial nerves II-XII grossly intact, Deep Tendon Reflexes 2+/4 and Symmetrical, Neuro grossly intact Psych/Mental Status: Normal Affect, Appropriate. - Physical Exam Vitals/I&O's: Vital Signs Temp Pulse Resp BP Pulse Ox 97.6 F L 74 18 120/54 L 95 05/15/20 08:33 05/15/20 08:33 05/15/20 08:33 05/15/20 08:33 05/15/20 09:03 Oxygen Flow Rate (L/min) 2 Oxygen Delivery Method Room Air Weight: 265 lb 0.001 oz Body Mass Index (BMI) 44.1 Intake and Output for Last 24 Hours 05/13/20 05/14/20 05/15/20 23:59 23:59 23:59 Intake Total 1100 / 1100 510 / 510 800 / 800 Output Total 600 / 1600 1000 / 1000 500 / 500 Balance 500 / -500 -490 / -490 300 / 300 Microbiology Past 72 Hours 05/12/20 07:35 Blood Culture (Wb) - Left Hand Blood Culture - Preliminary No growth in 48 hours. 05/12/20 07:30 Blood Culture (Wb) - Anticubital Left Blood Culture - Preliminary No growth in 48 hours. 05/12/20 18:25 Urine, Random Streptococcus pneumoniae Antigen (M - Final 05/12/20 18:25 Urine, Clean Catch Legionella Antigen - Final 05/12/20 10:09 Mucosa - Nose Respiratory Panel (PCR) - Final 05/12/20 10:09 Mucosa - Nose Influenza Types A,B Direct FA (MIKAEL) - Final 05/12/20 06:55 Mucosa - Nose SARS-CoV-2 Antigen (Rapid) - Final Laboratory Results 05/14/20 11:45: POC Glucose 212 H 05/14/20 16:14: POC Glucose 146 H 05/14/20 21:39: POC Glucose 212 H 05/15/20 06:50: POC Glucose 134 H Current Medications Albuterol Sulfate (Albuterol 2.5 Mg/3 Ml Vial.Neb.) 2.5 mg INHALATION Q2H PRN PRN PRN Reason: Shortness of Breath/Wheezing Albuterol Sulfate (Albuterol 2.5 Mg/3 Ml Vial.Neb.) 2.5 mg INHALATION Q6HWA.RT [facility] Last Admin: 05/14/20 20:58 Dose: 2.5 mg Documented by: Amlodipine Besylate (Amlodipine 10 Mg Tablet) 10 mg PO QHS [facility] Last Admin: 05/14/20 21:41 Dose: 10 mg Documented by: Atenolol (Atenolol 100 Mg Tablet) 100 mg PO DAILY [facility] Last Admin: 05/15/20 08:39 Dose: 100 mg Documented by: Duloxetine HCl (Duloxetine Hcl 60 Mg Capsule) 60 mg PO QHS [facility] Last Admin: 05/12/20 22:20 Dose: 60 mg Documented by: Enoxaparin Sodium (Enoxaparin 40 Mg/0.4 Ml Syringe) 40 mg SC DAILY [facility] Last Admin: 05/15/20 08:39 Dose: 40 mg Documented by: Furosemide (Furosemide 40 Mg/4 Ml Vial) 40 mg IV DAILY [facility] Last Admin: 05/15/20 08:38 Dose: 40 mg Documented by: Levofloxacin (Levaquin Iv) 750 mg in 150 mls @ 100 mls/hr IV Q24 [facility] Last Admin: 05/15/20 08:38 Dose: 100 mls/hr Documented by: Ibuprofen (Ibuprofen 400 Mg Tablet) 400 mg PO Q6H PRN PRN PRN Reason: Pain Score 1-10 Last Admin: 05/15/20 02:23 Dose: 400 mg Documented by: Insulin Glargine (Insulin Glargine 100 Units/Ml Pen) 40 units SC SUPPER [facility] Last Admin: 05/14/20 17:23 Dose: 40 u Documented by: Insulin Human Lispro (Insulin Lispro 100 Unit/Ml Insuln.Pen) 0 unit SC ACHS [facility]; Protocol Last Admin: 05/15/20 06:51 Dose: Not Given Documented by: Lisinopril (Lisinopril 40 Mg Tablet) 40 mg PO DAILY [facility] Last Admin: 05/15/20 08:39 Dose: 40 mg Documented by: Metoclopramide HCl (Metoclopramide 10 Mg/2 Ml Vial) 10 mg IV Q6H PRN PRN PRN Reason: NAUSEA/VOMITING Last Admin: 05/13/20 12:32 Dose: 10 mg Documented by: Neomycin/Polymyxin/Dexamethasone (Neomycin/Polymyxin/Dexameth 5ml Opth.Btl) 4 drop LEFT EAR Q6 [facility] Stop: 05/19/20 18:01 Last Admin: 05/15/20 06:52 Dose: 4 drop Documented by: Pantoprazole Sodium (Pantoprazole Sodium 40 Mg Tablet) 40 mg PO BID [facility] Last Admin: 05/15/20 08:39 Dose: 40 mg Documented by: Pramipexole Dihydrochloride (Pramipexole Di-Hcl 0.5 Mg Tablet) 0.5 mg PO QHS [facility] Last Admin: 05/14/20 19:57 Dose: 0.5 mg Documented by: Sodium Chloride (0.9% Saline Lock 10 Ml Syringe) 10 - 40 ml IV UD PRN PRN Reason: SALINE FLUSH Last Admin: 05/15/20 08:38 Dose: 10 ml Documented by: Sodium Chloride (Sodium Chloride 0.65% 1 Arnold Arnold.Btl) 2 spray NASAL TID PRN PRN PRN Reason: NASAL DRYNESS Last Admin: 05/14/20 12:46 Dose: 2 spray Documented by: Temazepam (Temazepam 15 Mg Capsule) 15 mg PO QHS PRN PRN PRN Reason: INSOMNIA Last Admin: 05/14/20 21:41 Dose: 15 mg Documented by: Discharge Activity: May Not Drive Weight Bearing Status: Weight bearing as tolerated Call your doctor if you observe: Fever of 101 or Higher, Coldness, Increased Pain, Numbness or Tingling, Change in Color, Inability to urinate, Inability to have a bowel movement, Shortness of breath, Dizziness, Fainting spells, Swelling in the ankles, Chest pain, Prolonged hiccoughing, Increased palpitations (irregular heartbeat), Calf discomfort, Uncontrolled pain Home Medications: Medications to take at Discharge Lisinopril [Zestril] 40 mg PO DAILY 06/08/14 Amlodipine [Norvasc] 10 mg PO QHS 04/08/18 Duloxetine Hcl [Cymbalta] 60 mg PO QHS 04/08/18 Pramipexole Di-HCl [Mirapex] 0.5 mg PO QHS 04/08/18 metFORMIN HCl [Glucophage] 1,000 mg PO BIDCM 04/08/18 Albuterol IH (ProAir) [Proair Hfa] 1 puff INHALATION Q4H PRN PRN #1 inhaler 06/24/19 esomeprazole magnesium 40 mg capsule,delayed release 40 mg PO BID cap 03/06/20 glipizide 10 mg tablet, extended release 24 hr 10 mg PO BID tab 03/06/20 Dulaglutide [Trulicity] 1 injectable SQ QWEEK 05/12/20 Magnesium Oxide 500 mg PO DAILY 05/12/20 Atenolol 100 mg PO DAILY #0 tab 05/15/20 Guaifenesin [Mucinex] 1,200 mg PO BID #14 tab.er.12h 05/15/20 Insulin Degludec [Tresiba Flextouch U-100] 40 unit SC DAILY #0 ml 05/15/20 Following Prescriptions Were Given to Patient: Guaifenesin [Mucinex] 1,200 mg PO BID #14 tab.er.12h Transmission Status: Received by [facility] Primary Care Physician: Kate Spencer DO [Primary Care Provider] - Please follow up with your Primary Care Physician in: In 1 to 2 weeks Please Follow Up With: Roberto Crouch DO When: in 2 weeks with Yee Gonzalez CNP Medical Necessity - Tobacco Use Smoking Status: Former smoker Tobacco Use: Non-smoker Meaningful Use Info Meaningful Use Diagnoses (Choose all that apply): None applicable Inpatient E&M: 87396 [facility]
[2020-05-15 10:09] VITALS: O2SAT 87; O2SAT 90; O2SAT 94
[2020-05-15] MEDS: Insulin Lispro 100 UNIT/ML INSULN.PEN SC (11:06)
[2020-05-15 11:15] LABS: Bedside Glucose 227 mg/dL (70-110)
--- NOTE | 2020-05-15 11:15 | CPS ---
patient was on 2L O2 stat 98%, weaned to 1L
--- NOTE | 2020-05-15 11:22 | CASEMGMT ---
Addendum entered by Em Lancaster 05/15/20 15:12: Discharge summary w/documentation re: O2 needs w/ambulation faxed to [facility] at this time. Original Note: SAMARA WEISS NOTE: Pt being discharged home. Home O2 walking pulse ox has been tested and pt qualifies for O2 @ 2 l/m w/exertion. SAMARA WEISS to room to talk with pt. Pt provided w/list of local DME companies. She states she got her CPAP through [facility] and would like to get O2 through them. Script for O2 along w/CPAP supplies obtained from Dr Schmid and faxed to [facility]. Call placed to [facility] at this time. They were made aware pt is in room 313, is discharging today, and is awaiting delivery of portable oxygen tank. They were also made aware pt would like to try a nasal CPAP mask and would like humidification. They state pt got the CPAP through them in 2014 and they were made aware pt reports she has not used it since then, as she tried it for a couple of weeks, couldn't tolerate it, and stopped using it. They state they will make arrangements to send a respiratory therapist to her home to go over different masks and to help assist pt w/use of mask. Pt made aware of above and voices appreciation. Pt also made aware of appts scheduled w/Dr Spencer and with Yee Bright NP @ account manager sales representative office and she was given print-out of appts scheduled. She denies having other needs/concerns/questions. Bi RAHMAN RN, CM
[2020-05-15 14:22] VITALS: BP 108/57; PULSE 67; RESP 18; TEMP 36.4; O2SAT 100
--- NOTE | 2020-05-17 11:32 | CASEMGMT ---
SAMARA WEISS Discharge Follow-up Phone Call: LYUDMILALeonor: Shannan Strata: 3 Call Date: 05/17/2020 Discharge Date: 05/15/2020 Time of Call: 1130 Duration: 3 min Admitting Diagnosis: Hypoxia, pneumonia SAMARA WEISS completed follow-up phone call after recent hospitalization. Patient states she is doing ok. Patient had no questions or concerns at this time. Patient was able to fill prescriptions without any issues. Patient received home oxygen and has been using it. Patient had no further concerns at this time.
== END 2020-05-15 14:35 | disposition home or self-care (01) | DRG 205 ==
LOC: ED 08:14 → MS3 15:24
PROVIDERS: Emergency Medicine; Admitting Provider Internal Medicine; Emergency Provider Emergency Medicine; PCP Family Medicine; Visit Provider Internal Medicine
DX: J98.11 Atelectasis (principal); I50.31 Acute diastolic (congestive) heart failure; J18.9 Pneumonia, unspecified organism; Z68.41 Body mass index [BMI] 40.0-44.9, adult; I87.8 Other specified disorders of veins; R09.02 Hypoxemia; R11.2 Nausea with vomiting, unspecified; K22.70 Barrett's esophagus without dysplasia; M47.816 Spondylosis without myelopathy or radiculopathy, lumbar region; I11.0 Hypertensive heart disease with heart failure; G47.33 Obstructive sleep apnea (adult) (pediatric); E66.01 Morbid (severe) obesity due to excess calories; E11.9 Type 2 diabetes mellitus without complications; G89.29 Other chronic pain; M25.511 Pain in right shoulder; Z79.4 Long term (current) use of insulin; Z79.899 Other long term (current) drug therapy; Z87.891 Personal history of nicotine dependence
CPT/HCPCS: 36600; 71045; 71046; 71275; 73030; 80048; 81001; 82803; 82962; 83605; 83880; 84484; 85025; 87040; 87426; 87449; 87633; 87635; 87804; 93005; 93306; 94002; 94640; 99251; 99285; J7030; Q9957; Q9967; A4216; C8929; G0463; J1940; J2405; U0002

== ENCOUNTER → 2020-05-31 12:15 | Outpatient (CLI) | payer OTHER, SELFPAY ==
[2020-05-31 11:24] VITALS: BMI 42.5
[2020-05-31 12:51] LABS: Absolute Lymphocyte Count 3.64 X10^3/uL (0.83-4.51); Absolute Neutrophil Count 12.3 X10^3/uL (2.0-7.7); Basophil# 0.08 X10^3/uL; Basophil% 0.5 % (0-1); Eosinophil# 0.43 X10^3/uL; Eosinophils% 2.5 % (0-5); Hematocrit 42.4 % (37-47); Hemoglobin 12.3 g/dL (12.0-15.0); Lymphocyte # 3.64 X10^3/ul (4.0); Lymphocyte % 20.8 % (19-41); Mean Corpuscular Hgb 23.3 pg (27.0-32.0); Mean Corpuscular Volume 80.2 fL (81-99); Mean Platelet Vol. 9.8 fl (6.2-12.0); Monocyte# 0.93 X10^3/uL; Monocyte% 5.3 % (0-10); NRBC Flagged by Analyzer 0 % (0-5); Neutrophil # 12.26 X10^3/uL (2.7-7.7); Neutrophil % 70.1 % (47-70); Platelet Count 512 K/mm3 (150-450); RBC Distribution Width CV 14.5 % (11.6-14.6); RBC Distribution Width SD 41.9 fl (35.1-43.9); Red Blood Count 5.29 M/mm3 (4.2-5.4); White Blood Count 17.5 K/mm3 (4.4-11.0)
[2020-05-31 13:12] LABS: BNP,B-Type NATRIURETIC PEPTIDE 17.9 pg/mL (0-100)
[2020-05-31 13:21] LABS: ALB/GLOB Ratio 0.8 RATIO (0.9-2.4); AST(SGOT) 16 U/L (15-37); Alanine Aminotransfer ALT/SGPT 20 U/L (13-56); Albumin, Serum 3.4 g/dL (3.2-5.0); Alkaline Phosphatase 108 U/L (45-117); Anion Gap 8 (5-15); BUN 22 mg/dL (7-18); Calcium,Total 9.2 mg/dL (8.5-10.1); Chloride 101 mmol/L (98-107); Creatinine, Serum 1.22 mg/dL (0.55-1.02); EST Glomerular Filtration Rate 48 mL/min (>60); Est Glom Filt Rate - Afr Amer 57 mL/min (>60); Globulin 4.3 g/dL (2.2-4.2); Glucose 154 mg/dL (74-106); Potassium 4.2 mmol/L (3.5-5.1); Protein, Total 7.7 g/dL (6.4-8.2); Sodium Level 138 mmol/L (136-145)
== END ==
PROVIDERS: PCP Family Medicine; Referring Provider Family Medicine; Visit Provider Family Medicine
DX: I50.30 Unspecified diastolic (congestive) heart failure (principal); Z51.81 Encounter for therapeutic drug level monitoring
CPT/HCPCS: 36415; 80053; 83880; 85025

== ENCOUNTER → 2020-06-08 13:18 | Outpatient (CLI) | payer OTHER, SELFPAY ==
[2020-05-31 11:24] VITALS: BMI 42.5
--- NOTE | 2020-06-08 13:34 | CT_ITS ---
STUDY: CT CHEST WITHOUT CONTRAST REASON FOR EXAM: Female, 60 years old. ELEVATED WBC/GROUND GLASS OPACITIES BILAT LUNG BASES RADIATION DOSAGE (If Supplied By Facility): CTDIvol = ( 20.12 ) mGy, DLP = ( 593.21 ) mGycm TECHNIQUE: Transaxial imaging was performed without the administration of intravenous contrast material. Multiplanar coronal and sagittal images were reformatted. Individualized dose optimization techniques were used for this CT. COMPARISON: Comparison is made with prior study dated 05/12/2020. FINDINGS: Small benign-appearing bilateral axillary lymph nodes. The previously seen bilateral patchy infiltrates have cleared. There is no demonstrated pleural abnormality. Normal heart and pericardium. Normal mediastinum. Normal hilar regions. Normal unenhanced pulmonary arteries. There is mild atherosclerotic calcification of the aortic arch . There are mild degenerative changes of the thoracic spine. Stable prominent trabeculae of the T7 vertebrae suggestive of hemangioma. There is no demonstrated abnormality of the visualized upper abdomen. CT/Chest without Contrast IMPRESSION: The previously seen bilateral pulmonary infiltrates have cleared. Electronically Signed: Simeon Osuna MD at 14:17 EST , Service support ,
[2020-06-08 15:27] LABS: Anion Gap 6 (5-15); BUN 17 mg/dL (7-18); BUN/Creat Ratio 15.7 RATIO (10-20); Chloride 103 mmol/L (98-107); Creatinine, Serum 1.08 mg/dL (0.55-1.02); EST Glomerular Filtration Rate 55 mL/min (>60); Est Glom Filt Rate - Afr Amer 66 mL/min (>60); Glucose 231 mg/dL (74-106); Sodium Level 138 mmol/L (136-145)
== END ==
PROVIDERS: PCP Family Medicine; Referring Provider Family Medicine; Visit Provider Family Medicine
DX: R05 Cough (principal); R09.02 Hypoxemia; R91.8 Other nonspecific abnormal finding of lung field; D72.829 Elevated white blood cell count, unspecified
CPT/HCPCS: 36415; 71250; 80048

== ENCOUNTER → 2020-06-16 08:41 | Outpatient (CLI) | payer OTHER, SELFPAY ==
[2020-06-13 14:18] VITALS: BMI 43.7
--- NOTE | 2020-06-16 08:49 | MRI_ITS ---
STUDY: MRI RIGHT SHOULDER REASON FOR EXAM: Female, 60 years old. rt shoulder pain, fall 04/2020, pain entire shoulder with limited rom TECHNIQUE: Standardized fat and water weighted pulse sequences were obtained in all 3 orthogonal planes. COMPARISON: X-ray 05/14/2020. FINDINGS: Quality: Adequate. Multiple pulse sequences are limited by patient motion. Edema in the distal supraspinatus tendon approximately 1 cm proximal to the insertion, consistent with high-grade partial tear measuring approximately 0.6 x 0.8 cm. Normal infraspinatus tendon. Normal subscapularis tendon. Normal teres minor tendon. Visualized muscles of the rotator cuff are unremarkable. Small glenohumeral joint effusion. Marrow edema in the glenoid process consistent with bone contusion. No demonstrated fracture. Normal biceps labral complex. Normal intracapsular long biceps tendon. Normal labrum. Normal capsulo- ligamentous complex. Normal rotator interval. Normal acromioclavicular articulation. There is a Type II morphology (curved), with a neutral orientation. There is moderate subacromial-subdeltoid bursal fluid. Normal visualized coracohumeral and coracoacromial ligaments. MRI/Upper Ext Joint Only(Routine) IMPRESSION: 1. High-grade partial supraspinatus tendon tear. 2. Subdeltoid-subacromial bursal effusion consistent with rotator cuff tear and/or bursitis. 3. Glenoid bone contusion. No demonstrated fracture. 4. Small glenohumeral joint effusion. Electronically Signed: Crissy Mallory MD at 18:48 EST Tel , Service support ,
== END ==
LOC: MRI 08:43
PROVIDERS: PCP Family Medicine; Referring Provider Orthopaedic Surgery; Visit Provider Orthopaedic Surgery
DX: S46.011A Strain of muscle(s) and tendon(s) of the rotator cuff of right shoulder, initial encounter (principal); W19.XXXA Unspecified fall, initial encounter
CPT/HCPCS: 73221

== ENCOUNTER → 2020-06-27 08:07 | Outpatient (CLI) | payer OTHER, SELFPAY ==
[2020-05-31 11:24] VITALS: BMI 42.5
[2020-06-13 14:18] VITALS: BMI 43.7
--- NOTE | 2020-06-28 12:59 | PFT ---
INTRODUCTION: The patient is a 60-year-old female that presents for pulmonary function studies secondary to a diagnosis of respiratory failure. Respiratory therapy reports good patient effort. Bronchodilators were used during testing. INTERPRETATION: Forced expiration spirometry demonstrates no evidence of a large airways obstructive ventilatory defect. There was a significant response to aerosolized bronchodilators noted. Spirograms are of good quality and plateau normally. Body plethysmography was performed and reveals lung volumes to be within normal limits. Diffusing capacity by single breath CO is at the lower limits of normal. IMPRESSION: Normal spirometry and lung volumes. Diffusing capacity is at the lower limits of normal. Significant bronchodilator response was noted.
== END ==
PROVIDERS: PCP Family Medicine; Referring Provider Internal Medicine Critical Care Medicine; Visit Provider Internal Medicine Critical Care Medicine
DX: J96.11 Chronic respiratory failure with hypoxia (principal); F17.211 Nicotine dependence, cigarettes, in remission
CPT/HCPCS: 94060; 94726; 94729

== ENCOUNTER → 2020-07-11 20:23 | Outpatient (CLI) | payer OTHER, MEDICAID, SELFPAY ==
[2020-05-31 11:24] VITALS: BMI 42.5
[2020-06-13 14:18] VITALS: BMI 43.7
== END ==
PROVIDERS: PCP Family Medicine; Referring Provider Internal Medicine Critical Care Medicine; Visit Provider Internal Medicine Critical Care Medicine
DX: G47.33 Obstructive sleep apnea (adult) (pediatric) (principal)
CPT/HCPCS: 95811

== ENCOUNTER 2020-07-12 15:43 | Outpatient (RCR) | payer MEDICAID, SELFPAY ==
[2020-06-13 14:18] VITALS: BMI 43.7
[2020-07-12] MEDS: COVID-19 VACC, MRNA(PFIZER)/PF 30 MCG/0.3 ML SYRINGE IM (16:58)
[2020-08-02] MEDS: COVID-19 VACC, MRNA(PFIZER)/PF 30 MCG/0.3 ML SYRINGE IM (17:04)
== END 2020-10-09 23:59 ==
LOC: IMMUN 15:43
PROVIDERS: PCP Family Medicine; Visit Provider Family Medicine
DX: Z23 Encounter for immunization (principal)
CPT/HCPCS: 0001A; 0002A; 91300

== ENCOUNTER → 2020-08-01 12:25 | Outpatient (CLI) | payer MEDICAID, SELFPAY ==
[2020-05-31 11:24] VITALS: BMI 42.5
[2020-07-25 14:22] VITALS: BMI 44.1
[2020-08-01 12:30] VITALS: PULSE 103; PULSE 107; PULSE 115; PULSE 121; PULSE 123; PULSE 125; PULSE 126; PULSE 127; O2SAT 89; O2SAT 90; O2SAT 93
--- NOTE | 2020-08-01 14:15 | PCM.PSN.6M ---
PSN 6 Minute Walk Test - 6 Minute Walk Test 6 Minute Walk Test: 6 Minute Walk Test PSN:6-Minute Walk Test Start: 08/01/20 12:52 Freq: Status: Active Protocol: RESP.6MINW Document 08/01/20 12:30 [facility] (Rec: 08/01/20 13:01 [facility] [id number]) 6 Minute Walk Test Date Performed 08/01/20 Time Performed 12:30 Height 5 ft 4 in Weight: 113.398 kg Weight in Pounds 250.[address]: Dr Crouch Assistive device used: None Pre-test Oxygen Delivery Method Room Air Pulse Ox (%) 93 Pulse Rate (60-100 beats/min) 103 H Dyspnea Lencho Scale (0-10) 0 Exertion Lencho Scale (6-20) 6 1st minute Oxygen Delivery Method Room Air Pulse Ox (%) 89 Pulse Rate (60-100 beats/min) 115 H 2nd minute Oxygen Delivery Method Room Air Pulse Ox (%) 89 Pulse Rate (60-100 beats/min) 121 H 3rd minute Oxygen Delivery Method Room Air Pulse Ox (%) 89 Pulse Rate (60-100 beats/min) 123 H 4th minute Oxygen Delivery Method Room Air Pulse Ox (%) 90 Pulse Rate (60-100 beats/min) 125 H 5th minute Oxygen Delivery Method Room Air Pulse Ox (%) 90 Pulse Rate (60-100 beats/min) 127 H 6th minute Oxygen Delivery Method Room Air Pulse Ox (%) 90 Pulse Rate (60-100 beats/min) 126 H Dyspnea Lencho Scale (0-10) 2 Exertion Lencho Scale (6-20) 12 Post-test Oxygen Delivery Method Room Air Pulse Ox (%) 93 Pulse Rate (60-100 beats/min) 107 H Full Laps Walked 17 Partial Lap, Number of Tiles Walked 54 Total Distance Walked (ft) 1057 - Interpretation Interpretation: The patient was noted to be 93% on room air and tachycardic at 103 bpm. The patient did desaturate as low as 89% and had a peak heart rate of 127 bpm. In total, the patient traveled 1057 feet over the course of 6 minutes with no assistive devices or breaks. These findings are consistent with a cardiovascular limitation exercise tolerance. - Recommendations Recommendations: No supplemental oxygen is indicated at this time. However, patient will need to be followed closely given level of desaturation. Consider cardiovascular work-up.
== END ==
PROVIDERS: PCP Family Medicine; Referring Provider Internal Medicine Critical Care Medicine; Visit Provider Internal Medicine Critical Care Medicine
DX: J96.11 Chronic respiratory failure with hypoxia (principal); F17.211 Nicotine dependence, cigarettes, in remission
CPT/HCPCS: 94618

== ENCOUNTER 2020-08-01 15:00 | Outpatient (RCR) | payer OTHER, MEDICAID, SELFPAY ==
[2020-06-13 14:18] VITALS: BMI 43.7
--- NOTE | 2020-07-03 16:06 | HP.PTEVAL_ITS ---
Patient's Visit Information LANA GODOY is a 60 year old F referred to Physical Therapy by Dr. Sarabjit Peterson DO with a diagnosis of R Rotator cuff tear. Date of Evaluation: 07/03/20 Physical Therapist: Dell Templeton, PT, ATC - Visit Plan Frequency: 2-3x /Week Duration: 4 Weeks Plan: R shoulder rot cuff strengthening, scap stab ex's, UBE, and HEP - Subjective Pt reports she fell 3 days before Tito. Pt reports she had xrays due to the significant amout of pain. Pt reports she then revieved a MRI which revealed partial tear in her rotator cuff. Pt reports she is R hand dominant. Pt notes she also has sig sleep difficulty secondary to R shoulder pain. 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 Pt reports she is here today secondary to not jose a candidate for surgery, but jose in great pain. Pt reports she is unable to reach over her head and behind herself secondary to pain. Pt reports this results in severe pain at times. 7/10 pain at rest, 9/10 pain at worst (reaching for toilet paper.) - Pain R shoulder Pain Intensity (Out of 10): 7 Pain Intensity Range: 9 - Objective Neuro: B UE sensation is WNL to light touch. B biceptital reflex= 2/3. Palpation: R shoulder is very point tender along supraspinatus. No obvious deformity. ROM: L shoulder flex= 130, abd= 135, ER= 65, IR WNL; R shoulder flex= 50, abd= 55, ER= 15, IR is moderately to severely limited. MMT: L shoulder is 5/5 throughout. R shoulder is 2-/5 and painful. Special tests: - Goals Goal 1:: Decrease R shoulder pain x 50% to aid with sleep Goal Time Frame: 4-6 Weeks Goal 2:: Increase R shoulder strength x 1 grade to aid with RTW without limitation Goal Time Frame: 4-6 Weeks Goal 3:: Increase R shoulder flex and abd ROM x 40 degrees to aid with overhead lifting Goal Time Frame: 4-6 Weeks Goal 4:: I with HEP Goal Time Frame: 4-6 Weeks - Rehabilitation Potential Physical Therapy Diagnosis: Pt has R shoulder pain, weakness Rehabilitation Potential: Good - Anticipated Interventions Patient/Client Instruction: Educate patient on: Condition, Plan of Care For the Purpose of:: To improve self management Therapeutic Exercise to Include: Strength training, Endurance training, Postural training, Active ROM, Scapular Strength/Stabilization For the Purpose of:: To decrease pain, To increase ROM, To improve muscle performance and motor function Cryotherapy (ice pack, ice massage): Yes For the Purpose of:: To decrease pain Thank you for the opportunity to evaluate your patient. For Medicare and Medicare HMO plans, please review the plan of care and approve it. It will need to be FAXED BACK to us at [phone] for Medicare purposes. For Medicare only, by signing this I certify the plan of care. Please let me know if there are questions or concerns regarding this plan of care. Physician Signature: Date:
--- NOTE | 2020-11-26 14:05 | HP.PT.NRP ---
LANA GODOY was seen in my office for initial evaluation on 07/03/20. The following Plan of Care was established for this patient: Initial Frequency: 2-3x /Week Initial Duration: 4 Weeks Patient/Client Instruction: Educate patient on: Condition, Plan of Care For the Purpose of:: To improve self management Therapeutic Exercise to Include: Strength training, Endurance training, Postural training, Active ROM, Scapular Strength/Stabilization For the Purpose of:: To decrease pain, To increase ROM, To improve muscle performance and motor function Cryotherapy (ice pack, ice massage): Yes For the Purpose of:: To decrease pain This patient was last seen in our office . Pertinent comments regarding their Physical therapy will appear below: Pt was treated for 7 PT visits for R shoulder pain through the date of 08/01/2020. Pt has not returned through this date and is discharged at this time. At this point I will be discontinuing this patient from physical therapy. I would be happy to see this patient again in the future if found appropriate by the physician. Thank you! Dell Templeton, PT, ATC Balance/Gait/Functional tests - Balance/Special Test Scores Quick DASH Score: [phone]
== END 2020-08-01 19:00 | disposition home or self-care (01) ==
LOC: PT 15:00
PROVIDERS: PCP Family Medicine; Referring Provider Orthopaedic Surgery; Visit Provider Orthopaedic Surgery
DX: M75.101 Unspecified rotator cuff tear or rupture of right shoulder, not specified as traumatic (principal)
CPT/HCPCS: 97110; 97161

== ENCOUNTER → 2020-08-23 15:14 | Outpatient (CLI) | payer OTHER, MEDICAID, SELFPAY ==
[2020-08-03 13:34] VITALS: BMI 43.9
[2020-08-23 18:11] LABS: Absolute Lymphocyte Count 3.55 X10^3/uL (0.83-4.51); Absolute Neutrophil Count 11.8 X10^3/uL (2.0-7.7); Basophil# 0.12 X10^3/uL; Basophil% 0.7 % (0-1); Eosinophil# 0.38 X10^3/uL; Eosinophils% 2.2 % (0-5); Hematocrit 42.6 % (37-47); Hemoglobin 12.4 g/dL (12.0-15.0); Lymphocyte # 3.55 X10^3/ul (0.83-4.51); Lymphocyte % 20.9 % (19-41); Mean Corp Hgb Conc 29.1 g/dL (32-36); Mean Corpuscular Hgb 23.4 pg (27.0-32.0); Mean Corpuscular Volume 80.4 fL (81-99); Mean Platelet Vol. 10.5 fl (6.2-12.0); Monocyte% 5.3 % (0-10); NRBC Flagged by Analyzer 0 % (0-5); Neutrophil % 69.6 % (47-70); Platelet Count 535 K/mm3 (150-450); RBC Distribution Width CV 15.5 % (11.6-14.6); RBC Distribution Width SD 44.7 fl (35.1-43.9)
[2020-08-23 18:20] LABS: Erythrocyte Sedimentation Rate 40 mm/hr (0-30)
[2020-08-23 18:21] LABS: ALB/GLOB Ratio 0.8 RATIO (0.9-2.4); AST(SGOT) 16 U/L (15-37); Alanine Aminotransfer ALT/SGPT 20 U/L (13-56); Albumin, Serum 3.4 g/dL (3.2-5.0); Alkaline Phosphatase 124 U/L (45-117); Anion Gap 5 (5-15); BUN 15 mg/dL (7-18); BUN/Creat Ratio 13.5 RATIO (10-20); Chloride 101 mmol/L (98-107); Creatinine, Serum 1.11 mg/dL (0.55-1.02); EST Glomerular Filtration Rate 53 mL/min (>60); Est Glom Filt Rate - Afr Amer 64 mL/min (>60); Globulin 4.1 g/dL (2.2-4.2); Glucose 165 mg/dL (74-106); Magnesium 1.7 mg/dL (1.6-2.6); Potassium 3.9 mmol/L (3.5-5.1); Protein, Total 7.5 g/dL (6.4-8.2); Sodium Level 138 mmol/L (136-145)
[2020-08-23 18:22] LABS: Vitamin D,25 Hydroxy 10.2 ng/mL
== END ==
PROVIDERS: PCP Family Medicine; Referring Provider Family Medicine; Visit Provider Family Medicine
DX: M79.10 Myalgia, unspecified site (principal); E11.9 Type 2 diabetes mellitus without complications; E55.9 Vitamin D deficiency, unspecified; Z51.81 Encounter for therapeutic drug level monitoring
CPT/HCPCS: 36415; 80053; 82306; 83735; 85025; 85652; 86140

== ENCOUNTER 2020-10-18 12:32 | Observation (INO) | payer MEDICAID, SELFPAY ==
[2020-09-05 15:04] VITALS: BMI 43.7
[2020-10-18] VITALS (8 sets, daily range): BP systolic 113–158; BP diastolic 48–88; PULSE 91–112; RESP 14–18; TEMP 36.3–36.6; O2SAT 93–98; BMI 43.4; BMI 44.5
--- NOTE | 2020-10-18 12:43 | EKG12_ITS ---
Test Reason : CP Blood Pressure : / mmHG Vent. Rate : 101 BPM Atrial Rate : 101 BPM P-R Int : 178 ms QRS Dur : 084 ms QT Int : 344 ms P-R-T Axes : 060 -02 047 degrees QTc Int : 446 ms Sinus tachycardia Otherwise normal ECG Confirmed by DREW SNIDER, IMAN ([id number]), publications editor MARTI SELF ([id number]) on 10/22/2020 11:07:08 A M Referred By: ASHLEY Confirmed By:KEN RUSSELL MD
--- NOTE | 2020-10-18 12:59 | ED.VIS.CHEST ---
HPI History of Present Illness Chief Complaint: Chest Pain Informant: patient Onset/Context/Timing Onset: Days Activity at onset: gradual Timing: Continuous Quality: Positive for Heaviness and Tightness Location: Substernal and Left Parasternal Current Severity: Moderate Maximum Severity: Severe Worsened By: Exertion Relieved By: Rest Associated Symptoms: Positive for Dyspnea Narrative Narrative: The patient is a 60-year-old female medical history significant for hypertension, pulmonary hypertension, hyperlipidemia, stage I diastolic dysfunction, history of Bahena's esophagus, who presents to the emergency department left-sided chest pain and shortness of breath. The patient states is been going on for the past 7 days. She states she is to the point where she cannot exert herself without getting very diaphoretic and dyspneic. She describes it as a squeezing pain across her left chest into her arm and jaw. She does not have history of coronary vascular disease. She also states that she has been having some intermittent diarrhea with some black specks. She denies fever. She denies chills or sweats. Prior Similar Symptoms: Yes Recent Illness/Hospitalization: No CVD Risk Factors: Positive for Hypertension [facility] Medical History Dyspnea on exertion Elevated heart rate with elevated blood pressure and diagnosis of hypertension Essential (primary) hypertension GERD (gastroesophageal reflux disease) Grade I diastolic dysfunction History of Bahena's esophagus Hx of congestive heart failure Hyperlipidemia Hypoxia Influenza A Low back pain Mild pulmonary arterial systolic hypertension Nausea Obesity Reactive airway disease Sleep apnea Spondylosis of lumbar region without myelopathy or radiculopathy Type 2 diabetes mellitus Viral syndrome Home Medications lisinopril 40 mg PO DAILY 06/08/14 [History Last Taken 04/06/20] duloxetine 60 mg PO QHS 04/08/18 [History Last Taken 06/20/19] metformin 1,000 mg PO BIDCM 04/08/18 [History Last Taken 06/21/19] pramipexole 0.5 mg PO QHS 04/08/18 [History Last Taken 06/20/19] esomeprazole magnesium 40 mg capsule,delayed release 40 mg PO BID cap 03/06/20 [History Last Taken 04/06/20] magnesium oxide 500 mg capsule 500 mg PO BID 06/13/20 [History Last Taken Unknown] diltiazem HCl 180 mg capsule,extended release 24 hr 180 mg PO DAILY #90 cap 07/25/20 [Rx Last Taken Unknown] metoprolol succinate 100 mg tablet,extended release 24 hr 100 mg PO DAILY #90 tablet 07/25/20 [Rx Last Taken Unknown] albuterol sulfate 90 mcg/actuation aerosol inhaler 2 inh INHALATION Q4H PRN PRN #18 gm 08/03/20 [Rx Last Taken Unknown] cholecalciferol (vitamin D3) 1,250 mcg (50,000 unit) capsule 50,000 unit PO 2XW cap 09/05/20 [History Last Taken Unknown] furosemide 20 mg tablet 20 mg PO DAILY tab 09/05/20 [History Last Taken Unknown] glipizide 10 mg tablet 20 mg PO BID tab 09/05/20 [History Last Taken Unknown] insulin degludec 100 unit/mL (3 mL) subcutaneous pen 44 unit SC DAILY ml 09/05/20 [History Last Taken Unknown] zolpidem 5 mg tablet 5 mg PO QHS tab 09/05/20 [History Last Taken Unknown] Allergy/AdvReac Type Severity Reaction Status Date / Time Penicillins Allergy Hives Verified 10/18/20 12:36 Family History Father Cancer bladder cancer Hypertension Mother Diabetes Hypertension Sister Diabetes Surgical History History of carpal tunnel release History of cholecystectomy History of tubal ligation Social History Smoking Status: Former smoker how long ago did patient quit smokin alcohol intake: never substance use type: does not use caffeine: Yes Type: coffee Number of servings: 5 ROS ROS ED Constitutional Constitutional ED: Denies chills or fever(s) Eyes Eyes: Denies blurry vision or change in vision ENT ENT ED: Denies ear pain or sore throat Cardiovascular Cardiovascular: Reports chest pain; Denies palpitations Respiratory/Chest Respiratory/Chest: Reports dyspnea and dyspnea on exertion; Denies cough Gastrointestinal Gastrointestinal: Reports diarrhea; Denies abdominal pain, nausea or vomiting Genitourinary Genitourinary ED: Denies dysuria or urinary frequency Musculoskeletal Musculoskeletal: Denies arthralgias or myalgias Integumentary Denies rash Neurologic Neurologic: Denies headache(s) or paresthesias Psychiatric Psychiatric: Denies anxiety or depression Endocrine Endocrinology: Denies polydipsia or polyuria Allergic/Immunologic Allergic/Immunologic ED: Denies urticaria EXAM Physical Exam Const Vital Signs: 10/18/20 12:33 10/18/20 13:05 10/18/20 13:09 Temperature 97.8 F Temperature Source Temporal Pulse Rate 97 102 H Respiratory Rate 14 Respiratory Effort Blood Pressure 158/88 H 144/48 H Blood Pressure Mean 111 Pulse Ox 97 Oxygen Delivery Method Room Air Room Air 10/18/20 13:10 10/18/20 13:37 Temperature Temperature Source Pulse Rate 98 Respiratory Rate Respiratory Effort Normal Non-Labored Blood Pressure 122/76 H Blood Pressure Mean Pulse Ox Oxygen Delivery Method Positive well nourished and well developed General Appearance ED: well developed HEENT Reports normocephalic, head/scalp atraumatic and moist mucous membranes Eyes PERRL and EOMs intact bilaterally Neck no lymphadenopathy and supple General: Negative for tenderness Chest Wall inspection of chest normal Resp normal respiratory effort and clear to auscultation bilaterally Cardio regular rate, regular rhythm and no murmurs GI normal to inspection, nondistended, normoactive bowel sounds Palpation: Negative for tender, guarding or rebound tenderness present Back/Spine no CVA tenderness Cervical Spine: Negative for cervical spine tenderness Thoracic Spine / Upper Back: Negative for thoracic spinal tenderness Extremity normal to inspection General Extremety ED: Negative for tenderness Neuro oriented x3 and CN's II-XII intact bilaterally Neuro Narrative: No focal deficits appreciated. Sensorium / Orientation: alert Psych mental status grossly normal Skin no rashes or lesions noted, no wounds and skin turgor normal Heart Score History: Highly Suspicious ECG: Nonspecific Repolarization Age: >45 - <65 years Risk Factors: >/= 3 Risk Factors or History of CAD Troponin: </= Normal Limit Score: 6 MDM MDM MDM Narrative Medical decision making narrative: Patient presents with chest tightness, exertional dyspnea, and pain that radiates into her arm and neck. She does not have a history of coronary vascular disease. Metabolic work-up was pursued. There was concern from her outpatient physician that she may be having a GI bleed. Her hemoglobin is almost 12. This is about her baseline. EKG was obtained. It was sinus rhythm without evidence of acute ischemia. Chest x-ray shows no focal infiltrative process. Is reviewed by both myself and the radiologist. Patient was given nitro with some improvement of her chest tightness. At this point, given her exertional dyspnea and chest tightness, I do feel that she would benefit from observation for cardiac risk testing. Patient is discussed with the hospitalist. Impression 1. Exertional dyspnea 2. Chest pain Lab Data Attestation: I reviewed the patient's lab results. Labs: Laboratory Results - last 24 hr 10/18/20 10/18/20 10/18/20 13:00 13:00 13:00 WBC 14.9 H RBC 5.02 Hgb 11.8 L Hct 40.5 MCV 80.7 L MCH 23.5 L MCHC 29.1 L RDW Std Deviation 44.7 H RDW Coeff of Moris 15.5 H Plt Count 425 MPV 9.8 Immature Gran % (Auto) 1.600 H Neut % (Auto) 68.6 Lymph % (Auto) 22.3 [place] % (Auto) 5.5 Eos % (Auto) 1.5 Baso % (Auto) 0.5 Absolute Neuts (auto) 10.2 H Absolute Lymphs (auto) 3.32 Nucleated RBC % 0 Sodium 140 Potassium 3.9 Chloride 102 Carbon Dioxide 31.0 Anion Gap 7 BUN 15 Creatinine 1.13 H Estim Creat Clear Calc 44.57 Est GFR (MDRD) Af Amer 63 Est GFR (MDRD) Non-Af 52 L BUN/Creatinine Ratio 13.3 Glucose 147 H Calcium 9.2 Magnesium 1.5 L Troponin I < 0.015 B-Natriuretic Peptide 18.3 Radiography Diagnostic Testing: Radiology Impression Chest X-Ray 10/18/20 13:05 IMPRESSION: Normal x-ray examination of the chest. Electronically Signed: Simeon Osuna MD at 13:35 EDT , Service support , Discharge Plan Triage Chief Complaint: Chest Pain ED Provider: Levon Rodriguez Dx/Rx/DC Orders Prescriptions: No Action albuterol sulfate 90 mcg/actuation HFA aerosol inhaler 2 inh INHALATION Q4H PRN PRN (Reason: Sob &/Or Wheezing) Qty: 18 RF: 6 magnesium oxide 500 mg capsule 500 mg PO BID RF: 0 diltiazem HCl 180 mg capsule,extended release 24hr 180 mg PO DAILY Qty: 90 RF: 3 metoprolol succinate 100 mg tablet extended release 24 hr 100 mg PO DAILY Qty: 90 RF: 3 insulin degludec 100 unit/mL (3 mL) insulin pen 44 unit SC DAILY RF: 0 glipizide 10 mg tablet 20 mg PO BID RF: 0 zolpidem 5 mg tablet 5 mg PO QHS RF: 0 furosemide 20 mg tablet 20 mg PO DAILY RF: 0 cholecalciferol (vitamin D3) 1,250 mcg (50,000 unit) capsule 50,000 unit PO 2XW RF: 0 lisinopril 40 MG tablet 40 mg PO DAILY RF: 0 esomeprazole magnesium 40 mg capsule,delayed release(DR/EC) 40 mg PO BID RF: 0 pramipexole 0.5 MG tablet 0.5 mg PO QHS RF: 0 metformin 1,000 MG tablet 1,000 mg PO BIDCM RF: 0 duloxetine 60 MG capsule 60 mg PO QHS RF: 0 Primary Care Provider: Kate Spencer
--- NOTE | 2020-10-18 13:05 | RAD_ITS ---
STUDY: X-RAY CHEST REASON FOR EXAM: Female, 60 years old. Chest pain TECHNIQUE: Single AP portable view of the chest. COMPARISON: Comparison is made with prior study dated 05/14/2020. FINDINGS: EKG electrodes are seen. The lungs are clear and expanded. There is no demonstrated pleural abnormality. Normal size heart. Normal mediastinum and edwina. Normal visualized pulmonary arteries. Normal visualized aortic arch and descending thoracic aorta. Normal visualized thoracic spine. Normal visualized ribs, clavicles, and shoulders. There is no demonstrated abnormality of the visualized soft tissue structures of the upper abdomen. RAD/Chest 1 View (Portable) IMPRESSION: Normal x-ray examination of the chest. Electronically Signed: Simeon Osuna MD at 13:35 EDT , Service support ,
[2020-10-18] MEDS: Aspirin 81 MG TAB.CHEW 324 MG PO (13:08)
[2020-10-18] MEDS: Nitroglycerin SL (ED/IMG/CATH) 0.4 MG TABLET SL ×2 (13:09→13:37)
[2020-10-18 13:10] LABS: Absolute Lymphocyte Count 3.32 X10^3/uL (0.83-4.51); Absolute Neutrophil Count 10.2 X10^3/uL (2.0-7.7); Basophil# 0.08 X10^3/uL; Basophil% 0.5 % (0-1); Eosinophil# 0.23 X10^3/uL; Eosinophils% 1.5 % (0-5); Hematocrit 40.5 % (37-47); Hemoglobin 11.8 g/dL (12.0-15.0); Lymphocyte # 3.32 X10^3/ul (0.83-4.51); Lymphocyte % 22.3 % (19-41); Mean Corp Hgb Conc 29.1 g/dL (32-36); Mean Corpuscular Hgb 23.5 pg (27.0-32.0); Mean Corpuscular Volume 80.7 fL (81-99); Mean Platelet Vol. 9.8 fl (6.2-12.0); Monocyte# 0.82 X10^3/uL; Monocyte% 5.5 % (0-10); NRBC Flagged by Analyzer 0 % (0-5); Neutrophil # 10.21 X10^3/uL (2.7-7.7); Neutrophil % 68.6 % (47-70); Platelet Count 425 K/mm3 (150-450); RBC Distribution Width CV 15.5 % (11.6-14.6); RBC Distribution Width SD 44.7 fl (35.1-43.9); Red Blood Count 5.02 M/mm3 (4.2-5.4); White Blood Count 14.9 K/mm3 (4.4-11.0)
[2020-10-18 13:26] LABS: Anion Gap 7 (5-15); BNP,B-Type NATRIURETIC PEPTIDE 18.3 pg/mL (0-100); BUN 15 mg/dL (7-18); BUN/Creat Ratio 13.3 RATIO (10-20); Calcium,Total 9.2 mg/dL (8.5-10.1); Chloride 102 mmol/L (98-107); Creatinine, Serum 1.13 mg/dL (0.55-1.02); EST Glomerular Filtration Rate 52 mL/min (>60); Est Glom Filt Rate - Afr Amer 63 mL/min (>60); Estimated Creatinine Clearance 44.57 ml/min; Glucose 147 mg/dL (74-106); Magnesium 1.5 mg/dL (1.6-2.6); Potassium 3.9 mmol/L (3.5-5.1); Sodium Level 140 mmol/L (136-145)
--- NOTE | 2020-10-18 14:00 | HP.PCM_ITS ---
HPI - General General Date of Admission: 10/18/20 HPI Narrative LANA GODOY, is a 60 F who presents with chest pain that has been ongoing over the past 2 to 3 days. Patient states that the pain is crushing and burning in nature with a 8 out of 10 pain level. Patient has received 2 doses of nitroglycerin with no improvement in pain. Patient reports that pain goes down her left arm and today began to go up her jaw which is when she came to the ER with concern. Patient denies fever, chills, cough, nausea, vomiting. Patient also reports being short of breath with exertion.Patient has a significant cardiac history including hypertension, grade 1 diastolic dysfunction, congestive heart failure, hyperlipidemia, and pulmonary hypertension. Patient follows with Dr. Evangelista and had a echo in May that showed normal systolic function with an EF 65% and stage I diastolic dysfunction. [facility] Medical History (Updated 10/18/20 @ 14:08 by Dilcia Vitale, [employer]) Dyspnea on exertion Elevated heart rate with elevated blood pressure and diagnosis of hypertension Essential (primary) hypertension GERD (gastroesophageal reflux disease) Grade I diastolic dysfunction History of Bahena's esophagus Hx of congestive heart failure Hyperlipidemia Hypoxia Influenza A Low back pain Mild pulmonary arterial systolic hypertension Nausea Obesity Reactive airway disease Sleep apnea Spondylosis of lumbar region without myelopathy or radiculopathy Type 2 diabetes mellitus Viral syndrome Home Medications lisinopril 40 mg PO DAILY 06/08/14 [History Last Taken 04/06/20] duloxetine 60 mg PO QHS 04/08/18 [History Last Taken 06/20/19] metformin 1,000 mg PO BIDCM 04/08/18 [History Last Taken 06/21/19] pramipexole 0.5 mg PO QHS 04/08/18 [History Last Taken 06/20/19] esomeprazole magnesium 40 mg capsule,delayed release 40 mg PO BID cap 03/06/20 [History Last Taken 04/06/20] magnesium oxide 500 mg capsule 500 mg PO BID 06/13/20 [History Last Taken Unknown] diltiazem HCl 180 mg capsule,extended release 24 hr 180 mg PO DAILY #90 cap 07/25/20 [Rx Last Taken Unknown] metoprolol succinate 100 mg tablet,extended release 24 hr 100 mg PO DAILY #90 tablet 07/25/20 [Rx Last Taken Unknown] albuterol sulfate 90 mcg/actuation aerosol inhaler 2 inh INHALATION Q4H PRN PRN #18 gm 08/03/20 [Rx Last Taken Unknown] cholecalciferol (vitamin D3) 1,250 mcg (50,000 unit) capsule 50,000 unit PO 2XW cap 09/05/20 [History Last Taken Unknown] furosemide 20 mg tablet 20 mg PO DAILY tab 09/05/20 [History Last Taken Unknown] glipizide 10 mg tablet 20 mg PO BID tab 09/05/20 [History Last Taken Unknown] insulin degludec 100 unit/mL (3 mL) subcutaneous pen 44 unit SC DAILY ml 09/05/20 [History Last Taken Unknown] zolpidem 5 mg tablet 5 mg PO QHS tab 09/05/20 [History Last Taken Unknown] Allergy/AdvReac Type Severity Reaction Status Date / Time Penicillins Allergy Hives Verified 10/18/20 12:36 Family History Father Cancer bladder cancer Hypertension Mother Diabetes Hypertension Sister Diabetes Surgical History History of carpal tunnel release History of cholecystectomy History of tubal ligation Social History Smoking Status: Former smoker how long ago did patient quit smokin alcohol intake: never substance use type: does not use caffeine: Yes Type: coffee Number of servings: 5 ROS Constitutional Constitutional: Reports excessive sweating; Denies anorexia, chills, fatigue or weakness Cardiovascular Cardiovascular: Reports chest pain, diaphoresis, dyspnea on exertion and radiating jaw, neck or arm pain; Denies edema Respiratory/Chest Respiratory/Chest: Reports dyspnea on exertion; Denies cough, hemoptysis or shortness of breath at rest Gastrointestinal Gastrointestinal: Denies abdominal pain, constipation, diarrhea, nausea or vomiting Genitourinary Genitourinary: Denies dysuria Musculoskeletal Musculoskeletal: Denies back pain, extremity pain, joint pain or joint stiffness Integumentary Integumentary: Denies dry skin Neurologic Neurologic: Denies abnormal gait, abnormal speech, confusion or dizziness Psychiatric Psychiatric: Denies anxiety or depression Endocrine Endocrinology: Denies change in body appearance Hematologic/Lymphatic Hematologic/Lymphatic: Denies easy bleeding or easy bruising Vital Signs Vital Signs Vital Signs: 10/18/20 12:33 10/18/20 13:05 10/18/20 13:09 Temperature 97.8 F Temperature Source Temporal Pulse Rate 97 102 H Respiratory Rate 14 Respiratory Effort Blood Pressure 158/88 H 144/48 H Blood Pressure Mean 111 Pulse Ox 97 Oxygen Delivery Method Room Air Room Air 10/18/20 13:10 10/18/20 13:37 Temperature Temperature Source Pulse Rate 98 Respiratory Rate Respiratory Effort Normal Non-Labored Blood Pressure 122/76 H Blood Pressure Mean Pulse Ox Oxygen Delivery Method Weight Weight: 253 lb 8.505 oz Body Mass Index (BMI) 43.4 Physical Exam Const alert, oriented x3 and no apparent distress General Appearance: cooperative HEENT normocephalic and head/scalp atraumatic Eyes conjunctivae normal and no scleral icterus Neck supple and no JVD General: trachea midline Resp normal respiratory effort, normal air movement and clear to auscultation bilaterally Cardio regular rate, regular rhythm, S1 normal heart sound and S2 normal heart sound Rate: tachycardic GI normal to inspection, nondistended, normoactive bowel sounds, soft to palpation and non-tender Extremity normal capillary refill and no clubbing, cyanosis or edema General Extremity: no tenderness to palpation of joints or extremities Skin General Skin Exam: no breakdown and turgor normal Lesions: no lesions Rashes: no rashes Neuro no focal motor deficits Speech: speech normal Psych thought process normal, cooperative and affect normal Appearance: appropriate Results Lab / Micro Data Result Diagrams: 10/18/20 13:00 10/18/20 13:00 Labs: Laboratory Results - last 24 hr 10/18/20 10/18/20 10/18/20 13:00 13:00 13:00 WBC 14.9 H RBC 5.02 Hgb 11.8 L Hct 40.5 MCV 80.7 L MCH 23.5 L MCHC 29.1 L RDW Std Deviation 44.7 H RDW Coeff of Moris 15.5 H Plt Count 425 MPV 9.8 Immature Gran % (Auto) 1.600 H Neut % (Auto) 68.6 Lymph % (Auto) 22.3 [place] % (Auto) 5.5 Eos % (Auto) 1.5 Baso % (Auto) 0.5 Absolute Neuts (auto) 10.2 H Absolute Lymphs (auto) 3.32 Nucleated RBC % 0 Sodium 140 Potassium 3.9 Chloride 102 Carbon Dioxide 31.0 Anion Gap 7 BUN 15 Creatinine 1.13 H Estim Creat Clear Calc 44.57 Est GFR (MDRD) Af Amer 63 Est GFR (MDRD) Non-Af 52 L BUN/Creatinine Ratio 13.3 Glucose 147 H Calcium 9.2 Magnesium 1.5 L Troponin I < 0.015 B-Natriuretic Peptide 18.3 Radiology Impression Chest X-Ray 10/18/20 13:05 IMPRESSION: Normal x-ray examination of the chest. Electronically Signed: Simeon Osuna MD at 13:35 EDT , Service support , Assessment & Plan Assessment/Plan (1) Dyspnea on exertion: (2) Chest pain: QUALIFIERS: Chest pain type: unspecified Qualified Code(s): R07.9 - Chest pain, unspecified PLAN: 1. Chest pain -Admit to PCU for cardiac monitoring -Nuclear stress test in a.m., patient recently had echo in May -Trend cardiac enzymes -N.p.o. at midnight for stress test -Cardiac calorie controlled diet -Oxygen therapy per protocol -Vital signs per protocol trend BP and heart rate -CBC, BMP, lipid panel in morning -Twelve-lead EKG 2. Dyspnea on exertion -Likely related to #1 as patient has been worked up outpatient by pulmonary and cardiology 3. Hypertension -Vital signs currently stable -Continue metoprolol, lisinopril, furosemide. 4. Hyperlipidemia -Not currently on statin therapy, will obtain lipid profile in a.m. 5. Diabetes mellitus type 2 -AC at bedtime blood sugars with sliding scale insulin ordered -Will hold Metformin, continue glipizide and long-acting insulin 6. Obesity in adult, BMI 40.0-44.9 DVT prophylaxis-not indicated, observation status This patient was seen by UMA Rae under the supervision of Dr. Galeano.
--- NOTE | 2020-10-18 15:07 | EKG12_ITS ---
Test Reason : ADMISSION EKG Blood Pressure : / mmHG Vent. Rate : 103 BPM Atrial Rate : 103 BPM P-R Int : 188 ms QRS Dur : 080 ms QT Int : 348 ms P-R-T Axes : 057 000 045 degrees QTc Int : 455 ms Sinus tachycardia Otherwise normal ECG When compared with ECG of 12-MAY-2020 07:05, No significant change was found Confirmed by DREW SNIDER, IMAN ([id number]), social media editor MARTI SELF ([id number]) on 10/22/2020 11:16:30 A M Referred By: BAILEY Confirmed By:KEN RUSSELL MD
[2020-10-18 16:21] LABS: Bedside Glucose 111 mg/dL (70-110)
[2020-10-18 18:20] LABS: Bedside Glucose 192 mg/dL (70-110)
[2020-10-18] MEDS: Insulin Lispro 100 UNIT/ML INSULN.PEN SC ×2 (19:22→21:59)
[2020-10-18] MEDS: Pramipexole Di-HCl 0.5 MG Tablet 1.5 MG PO (21:57)
[2020-10-18] MEDS: Magnesium Chloride 64 MG Delay Rel.Tablet 128 MG PO (21:57)
[2020-10-18] MEDS: dilTIAZem CD 180 MG Capsule PO (21:58)
[2020-10-18] MEDS: DULoxetine Hcl 60 MG Capsule PO (21:58)
[2020-10-18] MEDS: glipiZIDE 10 MG Tablet 20 MG PO (21:58)
[2020-10-18] MEDS: Zolpidem Tartrate 5 MG Tablet PO (21:58)
[2020-10-18] MEDS: Pantoprazole Sodium 40 MG Tablet PO (21:58)
[2020-10-18 22:05] LABS: Bedside Glucose 172 mg/dL (70-110)
[2020-10-19] VITALS (7 sets, daily range): BP systolic 133–146; BP diastolic 62–70; PULSE 112–115; RESP 17–18; TEMP 36.3–36.4; O2SAT 95–99
[2020-10-19] MEDS: Acetaminophen 325 MG Tablet 650 MG PO (03:44)
--- NOTE | 2020-10-19 05:55 | EKG12_ITS ---
Test Reason : AM EKG Blood Pressure : / mmHG Vent. Rate : 115 BPM Atrial Rate : 115 BPM P-R Int : 184 ms QRS Dur : 074 ms QT Int : 308 ms P-R-T Axes : 065 029 055 degrees QTc Int : 426 ms Sinus tachycardia Otherwise normal ECG When compared with ECG of 18-OCT-2020 16:27, MANUAL COMPARISON REQUIRED, DATA IS UNCONFIRMED Confirmed by DREW SNIDER, IMAN ([id number]), slot editor MARTI SELF ([id number]) on 10/22/2020 11:16:12 A M Referred By: BAILEY Confirmed By:KEN RUSSELL MD
[2020-10-19] MEDS: Lisinopril 40 MG Tablet PO (06:27)
[2020-10-19] MEDS: 0.9% Saline Lock 10 ML Syringe IV (06:28)
[2020-10-19 06:33] LABS: Absolute Lymphocyte Count 2.92 X10^3/uL (0.83-4.51); Absolute Neutrophil Count 9.7 X10^3/uL (2.0-7.7); Basophil# 0.08 X10^3/uL; Basophil% 0.6 % (0-1); Eosinophil# 0.19 X10^3/uL; Eosinophils% 1.3 % (0-5); Hematocrit 36.9 % (37-47); Hemoglobin 10.8 g/dL (12.0-15.0); Lymphocyte # 2.92 X10^3/ul (0.83-4.51); Lymphocyte % 20.7 % (19-41); Mean Corp Hgb Conc 29.3 g/dL (32-36); Mean Corpuscular Hgb 23.8 pg (27.0-32.0); Mean Corpuscular Volume 81.5 fL (81-99); Mean Platelet Vol. 10.2 fl (6.2-12.0); Monocyte# 0.97 X10^3/uL; Monocyte% 6.9 % (0-10); NRBC Flagged by Analyzer 0 % (0-5); Neutrophil # 9.71 X10^3/uL (2.7-7.7); Neutrophil % 68.9 % (47-70); Platelet Count 373 K/mm3 (150-450); RBC Distribution Width CV 15.5 % (11.6-14.6); RBC Distribution Width SD 45.7 fl (35.1-43.9); Red Blood Count 4.53 M/mm3 (4.2-5.4); White Blood Count 14.1 K/mm3 (4.4-11.0)
[2020-10-19 06:35] LABS: Bedside Glucose 201 mg/dL (70-110)
[2020-10-19 07:00] LABS: Anion Gap 7 (5-15); BUN 18 mg/dL (7-18); BUN/Creat Ratio 17.5 RATIO (10-20); Chloride 103 mmol/L (98-107); Cholesterol 179 mg/dL (200); Creatinine, Serum 1.03 mg/dL (0.55-1.02); EST Glomerular Filtration Rate 58 mL/min (>60); Est Glom Filt Rate - Afr Amer 70 mL/min (>60); Glucose 203 mg/dL (74-106); High Density Lipoprotein 35 mg/dL; Potassium 3.9 mmol/L (3.5-5.1); Sodium Level 139 mmol/L (136-145); Triglycerides 234 mg/dL; Very Low Density Lipoprotein 47 mg/dL (5-40)
[2020-10-19] MEDS: Pantoprazole Sodium 40 MG Tablet PO (10:56)
[2020-10-19] MEDS: metFORMIN HCl 1,000 MG Tablet 1000 MG PO (10:56)
[2020-10-19] MEDS: Magnesium Chloride 64 MG Delay Rel.Tablet 128 MG PO (10:56)
[2020-10-19] MEDS: glipiZIDE 10 MG Tablet 20 MG PO (10:56)
[2020-10-19] MEDS: dilTIAZem CD 180 MG Capsule PO (10:56)
[2020-10-19] MEDS: Ergocalciferol 1.25 MG (50, 000 UNIT) Capsule PO (10:56)
[2020-10-19] MEDS: Furosemide 20 MG Tablet PO (10:57)
[2020-10-19] MEDS: Metoprolol(XL)Succ 100 MG Tablet PO (10:57)
[2020-10-19 11:10] LABS: Bedside Glucose 216 mg/dL (70-110)
--- NOTE | 2020-10-19 13:20 | PCM.DC ---
Discharge Instructions Diet Discharge Diet: Low fat / Low cholesterol Activity Discharge Activity: Return to Normal Activity Dressing / Incision Call your doctor if you observe: Numbness or Tingling, Shortness of breath, Dizziness, Swelling in the ankles, Chest pain and Increased palpitations (irregular heartbeat) Follow Up Care Test Results: Test results from this visit will be discussed in further detail at your follow-up appointment, if applicable. Discharge Plan Admission Admit Date/Time: 10/18/20 14:00 Primary Reason for Your Visit: Chest Pain Attending Provider: Osman Schmid Primary Care Provider: Kate Spencer Instructions Patient Instructions: Recognizing a Heart Attack or Angina, Weight Management: Take it Off and Keep it Off, Taking Your Blood Pressure, ED Chest Pain, Noncardiac Discharge Orders/Prescriptions Prescriptions: New atorvastatin 40 mg Tablet 40 mg PO QHS 30 Days Qty: 30 RF: 0 Continued albuterol sulfate 90 mcg/actuation HFA aerosol inhaler 2 inh INHALATION Q4H PRN PRN (Reason: Sob &/Or Wheezing) Qty: 18 RF: 6 magnesium oxide 500 mg capsule 500 mg PO BID RF: 0 insulin degludec 100 unit/mL (3 mL) insulin pen 48 unit SC DINNER RF: 0 glipizide 10 mg tablet 20 mg PO BID RF: 0 zolpidem 5 mg tablet 5 mg PO QHS RF: 0 furosemide 20 mg tablet 20 mg PO DAILY RF: 0 cholecalciferol (vitamin D3) 1,250 mcg (50,000 unit) capsule 50,000 unit PO TUFR RF: 0 lisinopril 40 MG tablet 40 mg PO DAILY RF: 0 esomeprazole magnesium 40 mg capsule,delayed release(DR/EC) 40 mg PO BID RF: 0 metformin 1,000 MG tablet 1,000 mg PO BIDCM RF: 0 duloxetine 60 MG capsule 60 mg PO QHS RF: 0 pramipexole 1.5 mg tablet 1.5 mg PO QHS RF: 0 diltiazem HCl 180 mg capsule,extended release 24hr 180 mg PO QHS RF: 0 metoprolol succinate 100 mg tablet extended release 24 hr 100 mg PO DAILY RF: 0 Referrals / Follow Up: Kate Spencer DO [Primary Care Provider] - In 1 Week Disposition Disposition (needs filled in before D/C Order can be placed): Home, self care
--- NOTE | 2020-10-19 13:26 | PCM.DC.SUM ---
Documented by User: UMA Rae 10/19/20 13:34 Providers Date of Admission: 10/18/20 Primary Care Physician: Dr. Kate Spencer DO Reason For Visit: CHEST PAIN Diagnosis Discharge Diagnosis (1) Dyspnea on exertion: Status: Acute Code(s): R06.00 - Dyspnea, unspecified (2) Chest pain: Status: Acute Code(s): R07.9 - Chest pain, unspecified Qualifiers: Chest pain type: unspecified Qualified Code(s): R07.9 - Chest pain, unspecified Medications at Discharge Home Medications lisinopril 40 mg PO DAILY 06/08/14 duloxetine 60 mg PO QHS 04/08/18 metformin 1,000 mg PO BIDCM 04/08/18 esomeprazole magnesium 40 mg capsule,delayed release 40 mg PO BID cap 03/06/20 magnesium oxide 500 mg capsule 500 mg PO BID 06/13/20 albuterol sulfate 90 mcg/actuation aerosol inhaler 2 inh INHALATION Q4H PRN PRN #18 gm 08/03/20 cholecalciferol (vitamin D3) 1,250 mcg (50,000 unit) capsule 50,000 unit PO TUFR cap 09/05/20 furosemide 20 mg tablet 20 mg PO DAILY tab 09/05/20 glipizide 10 mg tablet 20 mg PO BID tab 09/05/20 insulin degludec 100 unit/mL (3 mL) subcutaneous pen 48 unit SC DINNER ml 09/05/20 zolpidem 5 mg tablet 5 mg PO QHS tab 09/05/20 diltiazem HCl 180 mg PO QHS 10/18/20 metoprolol succinate 100 mg PO DAILY 10/18/20 pramipexole 1.5 mg PO QHS 10/18/20 atorvastatin 40 mg PO QHS 30 Days #30 tab 10/19/20 Hospital Course Operations None Procedures EKG and Stress test Summary of Care Provided Minutes Spent on Discharge: 35 Hospital Course: 1. Chest pain -Nuclear stress test negative, echo completed in May shows EF 65% -Troponin negative x3 -Cardiac calorie controlled diet 2. Dyspnea on exertion -Likely related to #1 as patient has been worked up outpatient by pulmonary and cardiology 3. Hypertension -Vital signs currently stable -Continue metoprolol, lisinopril, furosemide. 4. Hyperlipidemia -Initiated on atorvastatin 40 mg nightly 5. Diabetes mellitus type 2 -Will continue home medication regimen upon discharge 6. Obesity in adult, BMI 40.0-44.9 -Encourage lifestyle modification including diet and exercise DVT prophylaxis-not indicated, observation status This patient was seen by UMA Rae under the supervision of Dr. Galeano. 10/18/20 [id number] <Electronically signed by Dilcia MERRITTC> Physical Exam Const alert, oriented x3 and no apparent distress General Appearance: cooperative HEENT normocephalic and head/scalp atraumatic Eyes conjunctivae normal and no scleral icterus Neck supple and no JVD General: trachea midline Chest inspection of chest normal and palpation of chest normal Chest: symmetrical chest wall rise Resp normal respiratory effort, normal air movement and clear to auscultation bilaterally Cardio regular rate, regular rhythm, S1 normal heart sound and S2 normal heart sound Rate: tachycardic GI normal to inspection, nondistended, normoactive bowel sounds, soft to palpation and non-tender Extremity normal to inspection, full ROM, normal capillary refill and no clubbing, cyanosis or edema General Extremity: no tenderness to palpation of joints or extremities Skin General Skin Exam: no breakdown and turgor normal Lesions: no lesions Rashes: no rashes Neuro oriented x3, moves all extremities and no focal motor deficits Speech: speech normal Psych mental status grossly normal, thought process normal, cooperative and affect normal Appearance: appropriate Weight / BMI Weight Weight: 259 lb 4.8 oz Body Mass Index (BMI) 44.5 ABG / Lab / Microbiology Data Result Diagrams: 10/19/20 05:50 10/19/20 05:50 Laboratory: Laboratory Results - last 24 hr 10/18/20 10/18/20 10/18/20 13:00 13:00 13:00 WBC RBC Hgb Hct MCV MCH MCHC RDW Std Deviation RDW Coeff of Moris Plt Count MPV Immature Gran % (Auto) Neut % (Auto) Lymph % (Auto) [place] % (Auto) Eos % (Auto) Baso % (Auto) Absolute Neuts (auto) Absolute Lymphs (auto) Nucleated RBC % Sodium 140 Potassium 3.9 Chloride 102 Carbon Dioxide 31.0 Anion Gap 7 BUN 15 Creatinine 1.13 H Estim Creat Clear Calc 44.57 Est GFR (MDRD) Af Amer 63 Est GFR (MDRD) Non-Af 52 L BUN/Creatinine Ratio 13.3 Glucose 147 H Calcium 9.2 Magnesium 1.5 L Troponin I < 0.015 B-Natriuretic Peptide 18.3 Triglycerides Cholesterol LDL Cholesterol VLDL Cholesterol HDL Cholesterol POC Glucose Blood Type O NEGATIVE Antibody Screen NEGATIVE 10/18/20 10/18/20 10/18/20 16:03 16:09 18:11 WBC RBC Hgb Hct MCV MCH MCHC RDW Std Deviation RDW Coeff of Moris Plt Count MPV Immature Gran % (Auto) Neut % (Auto) Lymph % (Auto) [place] % (Auto) Eos % (Auto) Baso % (Auto) Absolute Neuts (auto) Absolute Lymphs (auto) Nucleated RBC % Sodium Potassium Chloride Carbon Dioxide Anion Gap BUN Creatinine Estim Creat Clear Calc Est GFR (MDRD) Af Amer Est GFR (MDRD) Non-Af BUN/Creatinine Ratio Glucose Calcium Magnesium Troponin I < 0.015 B-Natriuretic Peptide Triglycerides Cholesterol LDL Cholesterol VLDL Cholesterol HDL Cholesterol POC Glucose 111 H 192 H Blood Type Antibody Screen 10/18/20 10/18/20 10/19/20 19:40 21:56 05:50 WBC 14.1 H RBC 4.53 Hgb 10.8 L Hct 36.9 L MCV 81.5 MCH 23.8 L MCHC 29.3 L RDW Std Deviation 45.7 H RDW Coeff of Moris 15.5 H Plt Count 373 MPV 10.2 Immature Gran % (Auto) 1.600 H Neut % (Auto) 68.9 Lymph % (Auto) 20.7 [place] % (Auto) 6.9 Eos % (Auto) 1.3 Baso % (Auto) 0.6 Absolute Neuts (auto) 9.7 H Absolute Lymphs (auto) 2.92 Nucleated RBC % 0 Sodium Potassium Chloride Carbon Dioxide Anion Gap BUN Creatinine Estim Creat Clear Calc Est GFR (MDRD) Af Amer Est GFR (MDRD) Non-Af BUN/Creatinine Ratio Glucose Calcium Magnesium Troponin I < 0.015 B-Natriuretic Peptide Triglycerides Cholesterol LDL Cholesterol VLDL Cholesterol HDL Cholesterol POC Glucose 172 H Blood Type Antibody Screen 10/19/20 10/19/20 10/19/20 05:50 06:26 11:02 WBC RBC Hgb Hct MCV MCH MCHC RDW Std Deviation RDW Coeff of Moris Plt Count MPV Immature Gran % (Auto) Neut % (Auto) Lymph % (Auto) [place] % (Auto) Eos % (Auto) Baso % (Auto) Absolute Neuts (auto) Absolute Lymphs (auto) Nucleated RBC % Sodium 139 Potassium 3.9 Chloride 103 Carbon Dioxide 29.0 Anion Gap 7 BUN 18 Creatinine 1.03 H Estim Creat Clear Calc 48.90 Est GFR (MDRD) Af Amer 70 Est GFR (MDRD) Non-Af 58 L BUN/Creatinine Ratio 17.5 Glucose 203 H Calcium 9.0 Magnesium Troponin I B-Natriuretic Peptide Triglycerides 234 H Cholesterol 179 LDL Cholesterol 97 VLDL Cholesterol 47 H HDL Cholesterol 35 L POC Glucose 201 H 216 H Blood Type Antibody Screen Radiography Diagnostic Testing: Radiology Impression Chest X-Ray 10/18/20 13:05 IMPRESSION: Normal x-ray examination of the chest. Electronically Signed: Simeon Osuna MD at 13:35 EDT , Service support , D/C Instructions Discharge Diet: Low fat / Low cholesterol Call your doctor if you observe: Numbness or Tingling, Shortness of breath, Dizziness, Swelling in the ankles, Chest pain and Increased palpitations (irregular heartbeat) Meaningful Use Info Meaningful Use Diagnoses (Choose all that apply): None applicable Discharge Plan Admission Admit Date/Time: 10/18/20 14:00 Primary Reason for Your Visit: Chest Pain Attending Provider: Osman Schmid Primary Care Provider: Kate Spencer Instructions Patient Instructions: Recognizing a Heart Attack or Angina, Weight Management: Take it Off and Keep it Off, Taking Your Blood Pressure, ED Chest Pain, Noncardiac Discharge Orders/Prescriptions Prescriptions: New atorvastatin 40 mg Tablet 40 mg PO QHS 30 Days Qty: 30 RF: 0 Continued albuterol sulfate 90 mcg/actuation HFA aerosol inhaler 2 inh INHALATION Q4H PRN PRN (Reason: Sob &/Or Wheezing) Qty: 18 RF: 6 magnesium oxide 500 mg capsule 500 mg PO BID RF: 0 insulin degludec 100 unit/mL (3 mL) insulin pen 48 unit SC DINNER RF: 0 glipizide 10 mg tablet 20 mg PO BID RF: 0 zolpidem 5 mg tablet 5 mg PO QHS RF: 0 furosemide 20 mg tablet 20 mg PO DAILY RF: 0 cholecalciferol (vitamin D3) 1,250 mcg (50,000 unit) capsule 50,000 unit PO TUFR RF: 0 lisinopril 40 MG tablet 40 mg PO DAILY RF: 0 esomeprazole magnesium 40 mg capsule,delayed release(DR/EC) 40 mg PO BID RF: 0 metformin 1,000 MG tablet 1,000 mg PO BIDCM RF: 0 duloxetine 60 MG capsule 60 mg PO QHS RF: 0 pramipexole 1.5 mg tablet 1.5 mg PO QHS RF: 0 diltiazem HCl 180 mg capsule,extended release 24hr 180 mg PO QHS RF: 0 metoprolol succinate 100 mg tablet extended release 24 hr 100 mg PO DAILY RF: 0 Referrals / Follow Up: Kate Spencer DO [Primary Care Provider] - In 1 Week Disposition Disposition (needs filled in before D/C Order can be placed): Home, self care Documented by User: Dr. Osman Schmid MD 10/19/20 15:21 Providers Date of Admission: 10/18/20 Reason For Visit: CHEST PAIN Medications at Discharge Home Medications lisinopril 40 mg PO DAILY 06/08/14 duloxetine 60 mg PO QHS 04/08/18 metformin 1,000 mg PO BIDCM 04/08/18 esomeprazole magnesium 40 mg capsule,delayed release 40 mg PO BID cap 03/06/20 magnesium oxide 500 mg capsule 500 mg PO BID 06/13/20 albuterol sulfate 90 mcg/actuation aerosol inhaler 2 inh INHALATION Q4H PRN PRN #18 gm 08/03/20 cholecalciferol (vitamin D3) 1,250 mcg (50,000 unit) capsule 50,000 unit PO TUFR cap 09/05/20 furosemide 20 mg tablet 20 mg PO DAILY tab 09/05/20 glipizide 10 mg tablet 20 mg PO BID tab 09/05/20 insulin degludec 100 unit/mL (3 mL) subcutaneous pen 48 unit SC DINNER ml 09/05/20 zolpidem 5 mg tablet 5 mg PO QHS tab 09/05/20 diltiazem HCl 180 mg PO QHS 10/18/20 metoprolol succinate 100 mg PO DAILY 10/18/20 pramipexole 1.5 mg PO QHS 10/18/20 atorvastatin 40 mg PO QHS 30 Days #30 tab 10/19/20 Hospital Course Summary of Care Provided Hospital Course: This patient was seen in conjunction with KELLEN Ha. I have independently interviewed and examined the patient and reviewed pertinent history, examination findings, laboratory and plan of management. I have reviewed the note and agree with the documented findings with the few additional points. In brief, patient is admitted to [facility] for atypical chest pain. Patient serial troponins negative. Nuclear stress test did not show stress-induced ischemia. Echo in May 2018 shows stage I diastolic dysfunction, consistent with chronic diastolic heart failure related to hypertension. Patient follows major assembler, Dr. Evangelista. Patient has other comorbidities which include diabetes mellitus type 2, hypertension, dyslipidemia, morbid obesity and obstructive sleep apnea: Patient on high dose of glipizide 20 mg twice daily, needs to be addressed by PCP to add another hypoglycemic agent or insulin to manage hyperglycemia. Discharge medication reconciliation done. Discharge follow-up instructions completed. Discharge process discussed with the patient and all questions were answered to patient's satisfaction. Discharged home. Total time spent, exact 35 minutes on discharge meds reconciliation, examination, coordination of care with nurses and ancillary staff, review of imaging and blood test and discussion with the patient on follow-up instructions I have discussed my assessment with KELLEN Ha and orders have been reviewed. Physical Exam Narrative Patient admitted with burning kind of chest heaviness under left breast with radiation to left arm. She has the symptoms for about 2 to 3 weeks. Denies prior history of coronary artery disease/DC. Mild pulmonary hypertension and diastolic heart failure. Physical exam General: Alert, Oriented x3, Cooperative, morbid obesity BMI 44.5 kg/m?. HEENT: Atraumatic, PERRLA, EOMI, Normocephalic Oral: No Gingival or Mucosal Lesions/ Ulcerations Neck: Supple, No JVD, Negative Carotid Bruits Lungs: Air entry diminished in bilateral lung bases. No crepitation/rhonchi Cardiovascular: Regular rate, Regular Rhythm, Normal S1, Normal S2, No murmurs Abdomen: Bowel Sounds Present, Soft, Non Tender, Non-Distended : No renal angle tenderness. No suprapubic tenderness. Extremities: No edema, Capillary Refill Less than 3 Seconds Skin: No rashes, No breakdown Musculoskeletal: No Tenderness to Palpation of Joints or Extremities Neurological: Cranial nerves II-XII grossly intact, Deep Tendon Reflexes 2+/4 and Symmetrical, Neuro grossly intact Psych/Mental Status: Normal Affect, Appropriate. ABG / Lab / Microbiology Data Result Diagrams: 10/19/20 05:50 10/19/20 05:50 Discharge Plan Admission Admit Date/Time: 10/18/20 14:00 Primary Reason for Your Visit: Chest Pain Attending Provider: Osman Schmid Primary Care Provider: Kate Spencer Instructions Patient Instructions: Recognizing a Heart Attack or Angina, Weight Management: Take it Off and Keep it Off, Taking Your Blood Pressure, ED Chest Pain, Noncardiac Discharge Orders/Prescriptions Prescriptions: New atorvastatin 40 mg Tablet 40 mg PO QHS 30 Days Qty: 30 RF: 0 Continued albuterol sulfate 90 mcg/actuation HFA aerosol inhaler 2 inh INHALATION Q4H PRN PRN (Reason: Sob &/Or Wheezing) Qty: 18 RF: 6 magnesium oxide 500 mg capsule 500 mg PO BID RF: 0 insulin degludec 100 unit/mL (3 mL) insulin pen 48 unit SC DINNER RF: 0 glipizide 10 mg tablet 20 mg PO BID RF: 0 zolpidem 5 mg tablet 5 mg PO QHS RF: 0 furosemide 20 mg tablet 20 mg PO DAILY RF: 0 cholecalciferol (vitamin D3) 1,250 mcg (50,000 unit) capsule 50,000 unit PO TUFR RF: 0 lisinopril 40 MG tablet 40 mg PO DAILY RF: 0 esomeprazole magnesium 40 mg capsule,delayed release(DR/EC) 40 mg PO BID RF: 0 metformin 1,000 MG tablet 1,000 mg PO BIDCM RF: 0 duloxetine 60 MG capsule 60 mg PO QHS RF: 0 pramipexole 1.5 mg tablet 1.5 mg PO QHS RF: 0 diltiazem HCl 180 mg capsule,extended release 24hr 180 mg PO QHS RF: 0 metoprolol succinate 100 mg tablet extended release 24 hr 100 mg PO DAILY RF: 0 Referrals / Follow Up: Kate Spencer DO [Primary Care Provider] - In 1 Week Disposition Disposition (needs filled in before D/C Order can be placed): Home, self care Charges/Coding Visit Charges OBSV E&M: 49854 Observation care discharge
--- NOTE | 2020-10-19 14:41 | PHA.DC.MC ---
Pharmacy Service has performed discharge medication reconciliation and counseling for this patient. The patient was counseled on the following discharge medications and changes in medications for homegoing were reviewed. 1. LIPITOR The Reason for Use, instructions for use, and potential side effects were reviewed for all new medications. The patient's questions regarding all of their medications were answered. The patient was able to verbally demonstrate an understanding of their discharge medications. Home Medications lisinopril 40 mg PO DAILY 06/08/14 duloxetine 60 mg PO QHS 04/08/18 metformin 1,000 mg PO BIDCM 04/08/18 esomeprazole magnesium 40 mg capsule,delayed release 40 mg PO BID cap 03/06/20 magnesium oxide 500 mg capsule 500 mg PO BID 06/13/20 albuterol sulfate 90 mcg/actuation aerosol inhaler 2 inh INHALATION Q4H PRN PRN #18 gm 08/03/20 cholecalciferol (vitamin D3) 1,250 mcg (50,000 unit) capsule 50,000 unit PO TUFR cap 09/05/20 furosemide 20 mg tablet 20 mg PO DAILY tab 09/05/20 glipizide 10 mg tablet 20 mg PO BID tab 09/05/20 insulin degludec 100 unit/mL (3 mL) subcutaneous pen 48 unit SC DINNER ml 09/05/20 zolpidem 5 mg tablet 5 mg PO QHS tab 09/05/20 diltiazem HCl 180 mg PO QHS 10/18/20 metoprolol succinate 100 mg PO DAILY 10/18/20 pramipexole 1.5 mg PO QHS 10/18/20 atorvastatin 40 mg PO QHS 30 Days #30 tab 10/19/20 The patient's discharge medication list was reviewed for discrepancies and discrepancies were resolved.
--- NOTE | 2020-10-20 13:45 | STRESSREP ---
Stress Test Report Date: 10/19/2020 Procedure: Pharmacologic stress nuclear imaging study Indications: Chest pain Consent: Per the patient Procedure: The patient underwent pharmacologic (Regadenoson) evaluation with a peak heart rate of 126 beats per minute (79%predicted maximal heart rate) and a peak blood pressure of 142/78 mmHg. The baseline ECG demonstrated sinus tachycardia. EKG during lexiscan infusion revealed no significant ischemic changes. EKG post infusion revealed no significant ischemic changes [There were no cardiac dysrhythmias pretest, during pharmacologic infusion, or recovery]. [There was no complaint of chest discomfort during pharmacologic infusion or recovery]. The examination was discontinued secondary to completion of protocol. Impression: 1. Lexiscan stress test test is negative for Lexiscan infusion induced EKG changes of ischemia. 2. Lexiscan stress test test is negative for Lexiscan infusion induced chest pain. 3. Results of the nuclear portion of the test is as below Myocardial perfusion imaging study: Technique: The patient was injected with 14.8 millicuries of technetium 99m Cardiolite and subsequently rest SPECT Cardiolite nuclear imaging was obtained in the horizontal long, vertical long, and short axis views. The patient underwent pharmacologic [Regadenoson 0.4mg] evaluation. Please see above for details. The patient was injected with 43 millicuries of technetium 99m Cardiolite and subsequently stress SPECT Cardiolite nuclear imaging was obtained in the horizontal long, vertical long, and short axis views. A gated Cardiolite study at peak stress was obtained. Interpretation: Rest and stress SPECT Cardiolite nuclear imaging status post realignment, normalization, and attenuation correction demonstrate overall normal myocardial radioisotope uptake. Gated images reveal no significant regional wall motion abnormalities. The reported LVEF is greater than 70%. Impression: 1. There is no evidence of significant ischemia or infarction. 2. Estimated ejection fraction is greater than 70%. This note was generated with [employer] software. It may contain incorrect words, spelling, and punctuation that were not noted in checking the note before signing.
== END 2020-10-19 13:24 | disposition home or self-care (01) ==
LOC: ED 12:52 → PCU 10-19 05:57
PROVIDERS: Nurse Practitioner Family; Admitting Provider Internal Medicine; Emergency Provider Emergency Medicine; PCP Family Medicine; Visit Provider Internal Medicine
DX: R07.89 Other chest pain (principal); I10 Essential (primary) hypertension; R06.09 Other forms of dyspnea; E78.5 Hyperlipidemia, unspecified; I11.0 Hypertensive heart disease with heart failure; I50.32 Chronic diastolic (congestive) heart failure; I27.20 Pulmonary hypertension, unspecified; R19.7 Diarrhea, unspecified; K21.9 Gastro-esophageal reflux disease without esophagitis; M47.816 Spondylosis without myelopathy or radiculopathy, lumbar region; E11.9 Type 2 diabetes mellitus without complications; G47.33 Obstructive sleep apnea (adult) (pediatric); E66.01 Morbid (severe) obesity due to excess calories; Z79.899 Other long term (current) drug therapy; Z87.19 Personal history of other diseases of the digestive system; Z87.891 Personal history of nicotine dependence; Z68.41 Body mass index [BMI] 40.0-44.9, adult; Z79.4 Long term (current) use of insulin
CPT/HCPCS: 36415; 71045; 78452; 80048; 80061; 82962; 83735; 83880; 84484; 85025; 86850; 86900; 86901; 93005; 93017; 99218; 99285; A9500; A4216; G0378; J2785

== ENCOUNTER → 2020-10-27 06:59 | Outpatient (CLI) | payer MEDICAID, SELFPAY ==
[2020-10-23 07:54] VITALS: BMI 44.6
[2020-10-27 07:20] LABS: Absolute Lymphocyte Count 3.25 X10^3/uL (0.83-4.51); Basophil# 0.11 X10^3/uL; Basophil% 0.6 % (0-1); Eosinophil# 0.34 X10^3/uL; Eosinophils% 1.9 % (0-5); Hematocrit 38.4 % (37-47); Hemoglobin 11.4 g/dL (12.0-15.0); Lymphocyte # 3.25 X10^3/ul (0.83-4.51); Lymphocyte % 18.3 % (19-41); Mean Corp Hgb Conc 29.7 g/dL (32-36); Mean Corpuscular Hgb 23.9 pg (27.0-32.0); Mean Corpuscular Volume 80.7 fL (81-99); Mean Platelet Vol. 10.1 fl (6.2-12.0); Monocyte# 0.79 X10^3/uL; Monocyte% 4.5 % (0-10); NRBC Flagged by Analyzer 0 % (0-5); Neutrophil # 13.01 X10^3/uL (2.7-7.7); Neutrophil % 73.3 % (47-70); POSITIVE COUNT YES; Platelet Count 342 K/mm3 (150-450); RBC Distribution Width CV 15.1 % (11.6-14.6); RBC Distribution Width SD 44.1 fl (35.1-43.9); Red Blood Count 4.76 M/mm3 (4.2-5.4); White Blood Count 17.7 K/mm3 (4.4-11.0)
[2020-10-27 07:27] LABS: Differential Indicated SCAN CRITERIA MET
[2020-10-27 07:49] LABS: Platelet Estimate ADEQUATE (ADEQ); Platelet Morphology CLUMPED
[2020-10-27 07:56] LABS: ALB/GLOB Ratio 0.8 RATIO (0.9-2.4); AST(SGOT) 12 U/L (15-37); Alanine Aminotransfer ALT/SGPT 16 U/L (13-56); Alkaline Phosphatase 106 U/L (45-117); Anion Gap 7 (5-15); BUN 14 mg/dL (7-18); BUN/Creat Ratio 12.4 RATIO (10-20); Calcium,Total 8.7 mg/dL (8.5-10.1); Chloride 100 mmol/L (98-107); Creatinine, Serum 1.13 mg/dL (0.55-1.02); EST Glomerular Filtration Rate 52 mL/min (>60); Est Glom Filt Rate - Afr Amer 63 mL/min (>60); Free T3 2.4 pg/mL (2.18-3.98); Globulin 3.7 g/dL (2.2-4.2); Glucose 256 mg/dL (74-106); Potassium 4.1 mmol/L (3.5-5.1); Protein, Total 6.7 g/dL (6.4-8.2); Sodium Level 137 mmol/L (136-145); T4 Free Direct 1.15 ng/dL (0.76-1.46)
== END ==
PROVIDERS: PCP Family Medicine; Referring Provider Family Medicine; Visit Provider Family Medicine
DX: E03.9 Hypothyroidism, unspecified (principal); Z51.81 Encounter for therapeutic drug level monitoring
CPT/HCPCS: 36415; 80053; 82533; 84439; 84443; 84481; 85025

== ENCOUNTER 2021-04-17 21:40 | Emergency (ER) | payer MEDICAID, SELFPAY ==
[2021-04-17 21:41] VITALS: BP 120/87; PULSE 127; RESP 20; TEMP 35.9; O2SAT 93; BMI 46.3
--- NOTE | 2021-04-17 22:03 | EKG12_ITS ---
Test Reason : SOB Blood Pressure : / mmHG Vent. Rate : 114 BPM Atrial Rate : 114 BPM P-R Int : 188 ms QRS Dur : 080 ms QT Int : 332 ms P-R-T Axes : 067 020 052 degrees QTc Int : 457 ms Sinus tachycardia Low voltage QRS (Limb Leads) Confirmed by MARY SNIDER, BERT ([id number]), primer expeditor and drier MARTI SELF ([id number]) on 04/19/2021 10:45:31 AM Referred By: EMILY Confirmed By:BERT HERNANDEZ MD
--- NOTE | 2021-04-17 22:08 | EX.ED.DYSGE1 ---
HPI History of Present Illness Chief Complaint: Shortness of Breath Narrative Narrative: Patient is a 60-year-old female with past medical history of congestive heart failure. She states over the past 7 to 10 days she has had mild congestion drainage and cough. She states that she does wear oxygen as needed and her pulse ox is dropped as low as 87% at home. She reports that her blood sugar is also been elevated for her which is not normal. She states that she is fully vaccinated against Covid but with her constellation of symptoms was advised by her doctor to come to the hospital for evaluation [facility] Medical History Dyspnea on exertion Elevated heart rate with elevated blood pressure and diagnosis of hypertension Essential (primary) hypertension Former smoker GERD (gastroesophageal reflux disease) Grade I diastolic dysfunction History of Bahena's esophagus History of home oxygen therapy Hx of congestive heart failure Hyperlipidemia Hypoxia Influenza A Low back pain Mild pulmonary arterial systolic hypertension Nausea Obesity Reactive airway disease Sleep apnea Spondylosis of lumbar region without myelopathy or radiculopathy Type 2 diabetes mellitus Viral syndrome Home Medications lisinopril 40 mg PO DAILY 06/08/14 [History Last Taken 10/18/20] duloxetine 60 mg PO QHS 04/08/18 [History Last Taken 10/17/20] metformin 1,000 mg PO BIDCM 04/08/18 [History Last Taken 10/18/20] esomeprazole magnesium 40 mg capsule,delayed release 40 mg PO BID cap 03/06/20 [History Last Taken 10/17/20] magnesium oxide 500 mg capsule 500 mg PO BID 06/13/20 [History Last Taken 10/18/20] albuterol sulfate 90 mcg/actuation aerosol inhaler 2 inh INHALATION Q4H PRN PRN #18 gm 08/03/20 [Rx Last Taken 10/18/20] cholecalciferol (vitamin D3) 1,250 mcg (50,000 unit) capsule 50,000 unit PO TUFR cap 09/05/20 [History Last Taken 10/16/20] furosemide 20 mg tablet 20 mg PO DAILY tab 09/05/20 [History Last Taken 10/18/20] glipizide 10 mg tablet 20 mg PO BID tab 09/05/20 [History Last Taken Unknown] insulin degludec 100 unit/mL (3 mL) subcutaneous pen 54 unit SC DINNER ml 09/05/20 [History Last Taken 10/17/20] zolpidem 5 mg tablet 5 mg PO QHS tab 09/05/20 [History Last Taken 10/17/20] diltiazem HCl 180 mg PO QHS 10/18/20 [History Last Taken 10/17/20] metoprolol succinate 100 mg PO DAILY 10/18/20 [History Last Taken 10/18/20] pramipexole 1.5 mg PO QHS 10/18/20 [History Last Taken 10/17/20] atorvastatin 40 mg PO QHS 30 Days #30 tab 10/19/20 [Rx Last Taken Unknown] benzonatate 200 mg PO TID PRN #30 cap 04/18/21 [Rx Last Taken Unknown] Allergy/AdvReac Type Severity Reaction Status Date / Time Penicillins Allergy Hives Verified 04/17/21 21:42 Family History Father Cancer bladder cancer Hypertension Mother Diabetes Hypertension Sister Diabetes Surgical History History of carpal tunnel release History of cholecystectomy History of tubal ligation Social History Smoking Status: Former smoker how long ago did patient quit smokin alcohol intake: never substance use type: does not use caffeine: Yes Type: coffee Number of servings: 5 ROS ROS ED Constitutional Constitutional ED: Denies chills or fever(s) ENT ENT ED: Reports rhinorrhea and sore throat Cardiovascular Cardiovascular: Denies chest pain Respiratory/Chest Respiratory/Chest: Reports cough, dyspnea and sputum Gastrointestinal Gastrointestinal: Denies abdominal pain, diarrhea, nausea or vomiting Genitourinary Genitourinary ED: Denies dysuria Musculoskeletal Musculoskeletal: Reports myalgias Integumentary Denies rash Neurologic Neurologic: Denies headache(s) Hematologic/Lymphatic Hematologic/Lymphatic: Denies easy bleeding or easy bruising EXAM Physical Exam Const Vital Signs: 04/17/21 21:41 04/17/21 22:20 Temperature 96.7 F L Temperature Source Temporal Pulse Rate 127 H Respiratory Rate 20 H Respiratory Effort Normal Respiratory Depth Normal Blood Pressure 120/87 H Blood Pressure Mean 98 Pulse Ox 93 Oxygen Delivery Method Room Air Positive well nourished, well developed and obese General Appearance ED: well developed Nutritional Appearance: obese HEENT Reports moist mucous membranes HEENT Narrative: Cobblestoning the posterior pharynx consistent with sinus drainage no airway edema or compromise Eyes PERRL and EOMs intact bilaterally Neck supple and no JVD Neck Narrative: Positive anterior cervical lymphadenopathy Resp normal respiratory effort Resp Narrative: Breath sounds are diminished throughout with diffuse expiratory wheeze and faint rhonchi in bilateral bases Cardio regular rhythm Rate: tachycardic and other Other Details: Tachycardic rate with regular rhythm. Radial pulses are plus 2 out of 4 bilaterally are equal and symmetric GI normal to inspection, nondistended, normoactive bowel sounds, non-tender, non-distended and no masses Auscultation: normoactive bowel sounds Palpation: soft Extremity Extremity Narrative: Trace to +1 pitting edema to the bilateral lower extremities that is equal and symmetric negative Homans' sign bilaterally Neuro oriented x3 and CN's II-XII intact bilaterally Sensorium / Orientation: alert Motor Exam: strength 5/5 throughout Psych mental status grossly normal Skin no rashes or lesions noted MDM MDM MDM Narrative Medical decision making narrative: Patient presented to the ER afebrile satting in the low to mid 90s on room air in no acute respiratory distress. Her constellation of symptoms are more viral in nature and therefore Covid swab with basic cardiac work-up was ordered because of her report of shortness of breath and left-sided chest discomfort. A D-dimer was added because of her persistent tachycardia. Blood work revealed elevation to her white blood cell count but this appears chronic in nature on chart review otherwise there is no clinically significant findings. Patient is hyperglycemic but has no changes to suggest DKA. The patient's symptoms are most consistent with a viral illness and at this time as she is not truly hypoxic and has no signs of cardiac damage I do not feel there is need for admission. She was instructed to use her inhaler more than once a day and also wear her oxygen more frequently based on her lung inflammation but otherwise as she is in no acute respiratory distress and is not hypoxic can be discharged home Lab Data Attestation: I reviewed the patient's lab results. Labs: Laboratory Results - last 24 hr 04/17/21 04/17/21 04/17/21 22:25 22:25 22:25 WBC 15.0 H RBC 4.74 Hgb 11.4 L Hct 37.8 MCV 79.7 L MCH 24.1 L MCHC 30.2 L RDW Std Deviation 45.9 H RDW Coeff of Moris 16.1 H Plt Count 357 MPV 9.9 Immature Gran % (Auto) 1.100 H Neut % (Auto) 67.6 Lymph % (Auto) 21.9 Menard % (Auto) 6.0 Eos % (Auto) 2.9 Baso % (Auto) 0.5 Absolute Neuts (auto) 10.1 H Absolute Lymphs (auto) 3.29 Nucleated RBC % 0 D-Dimer Quant (PE/DVT) Sodium 140 Potassium 4.1 Chloride 104 Carbon Dioxide 31.0 Anion Gap 5 BUN 23 H Creatinine 1.22 H Estim Creat Clear Calc 41.29 Est GFR (MDRD) Af Amer 57 L Est GFR (MDRD) Non-Af 47 L BUN/Creatinine Ratio 18.9 Glucose 448 H Calcium 9.5 Magnesium 1.7 Troponin I High Sens 4 B-Natriuretic Peptide 10.1 04/17/21 22:28 WBC RBC Hgb Hct MCV MCH MCHC RDW Std Deviation RDW Coeff of Moris Plt Count MPV Immature Gran % (Auto) Neut % (Auto) Lymph % (Auto) [place] % (Auto) Eos % (Auto) Baso % (Auto) Absolute Neuts (auto) Absolute Lymphs (auto) Nucleated RBC % D-Dimer Quant (PE/DVT) 0.42 Sodium Potassium Chloride Carbon Dioxide Anion Gap BUN Creatinine Estim Creat Clear Calc Est GFR (MDRD) Af Amer Est GFR (MDRD) Non-Af BUN/Creatinine Ratio Glucose Calcium Magnesium Troponin I High Sens B-Natriuretic Peptide Radiography Diagnostic Testing: Clinical Impression(s) from Imaging Studies Chest X-Ray 04/17/21 22:25 IMPRESSION: Normal x-ray examination of the chest. Electronically Signed: Sulaiman Wyatt DO at 23:03 EST Tel , Service support , Discharge Plan Triage Chief Complaint: Shortness of Breath ED Provider: Jp Storey Dx/Rx/DC Orders Clinical Impression: Viral upper respiratory illness, Hyperglycemia Instructions: ED URI, Viral W/ Wheezing (Adult) Prescriptions: New benzonatate 200 mg capsule 200 mg PO TID PRN (Reason: cough) Qty: 30 RF: 0 No Action albuterol sulfate 90 mcg/actuation HFA aerosol inhaler 2 inh INHALATION Q4H PRN PRN (Reason: Sob &/Or Wheezing) Qty: 18 RF: 6 magnesium oxide 500 mg capsule 500 mg PO BID RF: 0 insulin degludec 100 unit/mL (3 mL) insulin pen 54 unit SC DINNER RF: 0 glipizide 10 mg tablet 20 mg PO BID RF: 0 zolpidem 5 mg tablet 5 mg PO QHS RF: 0 furosemide 20 mg tablet 20 mg PO DAILY RF: 0 cholecalciferol (vitamin D3) 1,250 mcg (50,000 unit) capsule 50,000 unit PO TUFR RF: 0 lisinopril 40 MG tablet 40 mg PO DAILY RF: 0 esomeprazole magnesium 40 mg capsule,delayed release(DR/EC) 40 mg PO BID RF: 0 metformin 1,000 MG tablet 1,000 mg PO BIDCM RF: 0 duloxetine 60 MG capsule 60 mg PO QHS RF: 0 pramipexole 1.5 mg tablet 1.5 mg PO QHS RF: 0 diltiazem HCl 180 mg capsule,extended release 24hr 180 mg PO QHS RF: 0 metoprolol succinate 100 mg tablet extended release 24 hr 100 mg PO DAILY RF: 0 atorvastatin 40 mg Tablet 40 mg PO QHS 30 Days Qty: 30 RF: 0 Primary Care Provider: Kate Spencer Referrals: Kate Spencer DO [Primary Care Provider] - Activity Restrictions/Additional Instructions: Please use your inhaler 3-4 times a day and wear oxygen more frequently secondary to your viral illness/lung inflammation Disposition Disposition: Home, Self Care
--- NOTE | 2021-04-17 22:25 | RAD_ITS ---
STUDY: X-RAY CHEST REASON FOR EXAM: Female, 60 years old. cough TECHNIQUE: Single AP portable view of the chest. COMPARISON: 10/18/2020 FINDINGS: The lungs are clear and expanded. There is no demonstrated pleural abnormality. Normal size heart. Normal mediastinum and edwina. Normal visualized pulmonary arteries. Normal visualized aortic arch and descending thoracic aorta. Normal visualized thoracic spine. Normal visualized ribs, clavicles, and shoulders. There is no demonstrated abnormality of the visualized soft tissue structures of the upper abdomen. RAD/Chest 1 View (Portable) IMPRESSION: Normal x-ray examination of the chest. Electronically Signed: Sulaiman Wyatt DO at 23:03 EST Tel , Service support ,
[2021-04-17 22:28] LABS: Absolute Lymphocyte Count 3.29 X10^3/uL (0.83-4.51); Absolute Neutrophil Count 10.1 X10^3/uL (2.0-7.7); Basophil# 0.08 X10^3/uL; Basophil% 0.5 % (0-1); Eosinophil# 0.43 X10^3/uL; Eosinophils% 2.9 % (0-5); Hematocrit 37.8 % (37-47); Hemoglobin 11.4 g/dL (12.0-15.0); Lymphocyte # 3.29 X10^3/ul (0.83-4.51); Lymphocyte % 21.9 % (19-41); Mean Corp Hgb Conc 30.2 g/dL (32-36); Mean Corpuscular Hgb 24.1 pg (27.0-32.0); Mean Corpuscular Volume 79.7 fL (81-99); Mean Platelet Vol. 9.9 fl (6.2-12.0); NRBC Flagged by Analyzer 0 % (0-5); Neutrophil # 10.14 X10^3/uL (2.7-7.7); Neutrophil % 67.6 % (47-70); Platelet Count 357 K/mm3 (150-450); RBC Distribution Width CV 16.1 % (11.6-14.6); RBC Distribution Width SD 45.9 fl (35.1-43.9); Red Blood Count 4.74 M/mm3 (4.2-5.4)
[2021-04-17 22:45] LABS: Anion Gap 5 (5-15); BUN 23 mg/dL (7-18); BUN/Creat Ratio 18.9 RATIO (10-20); Calcium,Total 9.5 mg/dL (8.5-10.1); Chloride 104 mmol/L (98-107); Creatinine, Serum 1.22 mg/dL (0.55-1.02); EST Glomerular Filtration Rate 47 mL/min (>60); Est Glom Filt Rate - Afr Amer 57 mL/min (>60); Estimated Creatinine Clearance 41.29 ml/min; Glucose 448 mg/dL (74-106); Magnesium 1.7 mg/dL (1.6-2.6); Potassium 4.1 mmol/L (3.5-5.1); Sodium Level 140 mmol/L (136-145); Troponin-I HS 4 pg/mL (3.0-54.0)
[2021-04-17 22:47] LABS: BNP,B-Type NATRIURETIC PEPTIDE 10.1 pg/mL (0-100)
[2021-04-17 23:41] LABS: D-Dimer Quantitative (DVT/PE) 0.42 FEU/ug/m (0.27-0.49)
[2021-04-18 00:35] VITALS: PULSE 98; RESP 18; O2SAT 100
== END 2021-04-18 00:36 | disposition home or self-care (01) ==
PROVIDERS: Emergency Provider Emergency Medicine; PCP Family Medicine
DX: J06.9 Acute upper respiratory infection, unspecified (principal); E11.65 Type 2 diabetes mellitus with hyperglycemia; R00.0 Tachycardia, unspecified; I11.0 Hypertensive heart disease with heart failure; I50.9 Heart failure, unspecified; E78.5 Hyperlipidemia, unspecified; E66.9 Obesity, unspecified; K21.9 Gastro-esophageal reflux disease without esophagitis; Z68.42 Body mass index [BMI] 45.0-49.9, adult; Z79.4 Long term (current) use of insulin; Z79.84 Long term (current) use of oral hypoglycemic drugs; Z79.899 Other long term (current) drug therapy; Z87.891 Personal history of nicotine dependence
CPT/HCPCS: 71045; 80048; 83735; 83880; 84484; 85025; 85379; 87426; 93005; 96360; 99285; J7040; A4216

== ENCOUNTER 2021-07-16 12:08 | Outpatient (CLI) | payer MEDICAID, SELFPAY ==
--- NOTE | 2021-07-16 12:15 | RAD_ITS ---
STUDY: XR Chest 2 Views 07/16/2021 11:22 AM REASON FOR EXAM: Female, 61 years old. CHEST PAIN conroy COMPARISON: 04.17.21 TECHNIQUE: XR Chest 2 Views FINDINGS: There is no demonstrated pleural abnormality. Normal heart size. Normal mediastinum. Normal edwina. Prominent appearing increased interstitial lung markings. Normal visualized pulmonary arteries. There is atherosclerotic calcification of the aortic arch with tortuosity. There are diffuse degenerative changes of the visualized thoracic spine. There is degenerative osteoarthritis of the bilateral shoulders. There is no demonstrated abnormality of the visualized soft tissue structures of the upper abdomen. RAD/Chest PA and Lateral IMPRESSION: There are no acute findings. Electronically Signed: Dell Plasencia MD at 17:00 EDT ,
[2021-07-16 13:17] LABS: Absolute Lymphocyte Count 3.53 X10^3/uL (0.83-4.51); Absolute Neutrophil Count 10.6 X10^3/uL (2.0-7.7); Basophil# 0.09 X10^3/uL; Basophil% 0.6 % (0-1); Eosinophil# 0.48 X10^3/uL; Eosinophils% 3.1 % (0-5); Hematocrit 41.6 % (37-47); Hemoglobin 12.3 g/dL (12.0-15.0); Lymphocyte # 3.53 X10^3/ul (0.83-4.51); Lymphocyte % 22.5 % (19-41); Mean Corp Hgb Conc 29.6 g/dL (32-36); Mean Corpuscular Hgb 23.7 pg (27.0-32.0); Mean Corpuscular Volume 80.3 fL (81-99); Mean Platelet Vol. 10.3 fl (6.2-12.0); Monocyte# 0.91 X10^3/uL; Monocyte% 5.8 % (0-10); NRBC Flagged by Analyzer 0 % (0-5); Neutrophil # 10.56 X10^3/uL (2.7-7.7); Neutrophil % 67.2 % (47-70); Platelet Count 413 K/mm3 (150-450); RBC Distribution Width CV 15.5 % (11.6-14.6); RBC Distribution Width SD 44.3 fl (35.1-43.9); Red Blood Count 5.18 M/mm3 (4.2-5.4); White Blood Count 15.7 K/mm3 (4.4-11.0)
[2021-07-16 13:26] LABS: Partial Thromboplast Time 24.6 Seconds (24.1-36.2); Prothrombin Time (Protime)PT. 12.3 SECONDS (11.7-14.9)
[2021-07-16 13:39] LABS: Anion Gap 3 (5-15); BUN 16 mg/dL (7-18); BUN/Creat Ratio 15.7 RATIO (10-20); Chloride 101 mmol/L (98-107); Creatinine, Serum 1.02 mg/dL (0.55-1.02); EST Glomerular Filtration Rate 58 mL/min (>60); Est Glom Filt Rate - Afr Amer 70 mL/min (>60); Glucose 216 mg/dL (74-106); Potassium 4.3 mmol/L (3.5-5.1); Sodium Level 136 mmol/L (136-145)
== END 2021-07-16 23:59 | disposition home or self-care (01) ==
LOC: RAD 12:12 → LAB 12:28
PROVIDERS: PCP Family Medicine; Referring Provider Physician Assistant Medical; Visit Provider Physician Assistant Medical
DX: R07.9 Chest pain, unspecified (principal); R06.09 Other forms of dyspnea
CPT/HCPCS: 36415; 71046; 80048; 85025; 85610; 85730

== ENCOUNTER 2021-07-25 06:54 | Day surgery (SDC) | payer MEDICAID, SELFPAY ==
[2021-07-24 07:51] VITALS: BMI 44.9
--- NOTE | 2021-07-25 08:52 | CL.D_ITS ---
Patient Name: LANA GODOY Study Date: 07/25/2021 Performing: Emanuel Evangelista MD Ht: 65 inches 165 cm : 1960 Wt: 269.3 lbs 122 kg Age: 61 Gender: female BSA: 2.24 PROCEDURE(S) PERFORMED [id number])C/COR CLINICAL PROFILE AND INDICATIONS Indications: Other Heart Failure: None Stress/Imaging Stress/Image Study Performed: No CAD Presentations: Unstable angina. CONCLUSIONS Non obstructive coronary arteries RECOMMENDATIONS Medical therapy DESCRIPTION OF PROCEDURE The patient arrived to the procedure lab. The risks and benefits of the procedure as well as a full d escription of our services here and current unavailability of surgical backup were fully explained to the patient and/or their significant other prior to the catheterization. The Timeout was completed, verifying the correct patient and procedure. The patient's procedural site was prepped and draped in the usual fashion. Local anesthetic was given subcutaneously to right radial region with Lidocaine 2% . Using a modified Seldinger technique, arterial access was obtained via the right radial artery, a 6 Fr sheath was inserted. Left Coronary Artery selective angiography was performed in multiple views u sing a 5 Fr. 4.0 [place] catheter. Right Coronary Artery selective angiography was then performed in mu ltiple views using a 5 Fr. 4.0 [place] catheter.The arterial sheath was pulled and a TR Band was applie d for hemostasis CORONARY ANGIOGRAPHY DOMINANCE: Right Dominant LEFT HEART ASSESSMENT Left Ventricular Ejection Fraction: by Echo 60 % Normal LV wall motion Normal Left Ventricular systolic function LEFT MAIN: Angiographically normal LEFT ANTERIOR DESCENDING ARTERY: No significant disease noted CIRCUMFLEX ARTERY: No significant disease noted RIGHT CORONARY ARTERY: No significant disease noted COMPLICATIONS No Complications PROCEDURE MEDICATIONS Versed 1 mg IV Fentanyl 50 mcg IV Versed 1 mg IV Versed 1 mg IV Fentanyl 50 mcg IV Oxygen: 2 L/min via nasal cannula SUMMARY OF HEMODYNAMIC DATA Time AIR REST ECG 07:17:35 Art 178/82 (113) 08:10:49 AO 127/92 (109) SA 08:33:52 Signed By Emanuel Evangelista MD On 07/25/2021 08:50:58 Emanuel Evangelista MD
== END 2021-07-25 23:59 | disposition home or self-care (01) ==
LOC: CLSP 06:56
PROVIDERS: PCP Family Medicine; Visit Provider Internal Medicine Cardiovascular Disease
DX: I20.0 Unstable angina (principal); I27.20 Pulmonary hypertension, unspecified; I11.0 Hypertensive heart disease with heart failure; I50.30 Unspecified diastolic (congestive) heart failure; E11.9 Type 2 diabetes mellitus without complications; Z79.4 Long term (current) use of insulin; R06.09 Other forms of dyspnea; G47.33 Obstructive sleep apnea (adult) (pediatric); E78.5 Hyperlipidemia, unspecified; E66.9 Obesity, unspecified; Z79.84 Long term (current) use of oral hypoglycemic drugs; Z79.899 Other long term (current) drug therapy; Z87.891 Personal history of nicotine dependence
CPT/HCPCS: 93454; 99152; 99153; J7040; C1769; C1894; Q9967

== ENCOUNTER 2021-08-28 21:25 | Observation (INO) | payer MEDICAID, SELFPAY ==
[2021-08-28 21:27] VITALS: BP 127/68; PULSE 115; RESP 23; TEMP 37.1; O2SAT 96; BMI 47.7
[2021-08-28 21:29] VITALS: BP 127/68; PULSE 115; RESP 23; TEMP 37.1; O2SAT 96
--- NOTE | 2021-08-28 22:15 | EKG12_ITS ---
Test Reason : SOB Blood Pressure : / mmHG Vent. Rate : 113 BPM Atrial Rate : 113 BPM P-R Int : 176 ms QRS Dur : 080 ms QT Int : 318 ms P-R-T Axes : 067 024 047 degrees QTc Int : 436 ms Sinus tachycardia Otherwise normal ECG Confirmed by MARY SNIDER, BERT ([id number]), story editor MARTI SELF ([id number]) on 08/30/2021 10:13:24 AM Referred By: EMILY Confirmed By:BERT HERNANDEZ MD
[2021-08-28 22:47] VITALS: BP 140/76; PULSE 113; RESP 24; TEMP 36.6; O2SAT 94
--- NOTE | 2021-08-28 22:55 | EDS_ITS ---
HPI History of Present Illness Chief Complaint: Shortness of Breath Narrative Narrative: Patient is a 61-year-old female with past medical history of congestive heart failure hypertension hyperlipidemia who wears 1 to 3 L of nasal cannula oxygen as needed. She states for the past 1 to 2 days she has had generalized fatigue with headache cough congestion shortness of breath and bouts of nausea vomiting and diarrhea. She states that her daughter's boyfriend lives with them and tested positive for COVID today. She states that his symptoms have been present for a few days longer than hers. Patient states that she is vaccinated and 1 time boosted for COVID. Otherwise she denies any known sick contact. She states that because of her medical issues and the exposure and her worsening symptoms she was concerned and therefore comes to the hospital for evaluation. [facility] Medical History Dyspnea on exertion Elevated heart rate with elevated blood pressure and diagnosis of hypertension Essential (primary) hypertension Former smoker GERD (gastroesophageal reflux disease) Grade I diastolic dysfunction History of Bahena's esophagus History of home oxygen therapy Hx of congestive heart failure Hyperlipidemia Hypoxia Influenza A Low back pain Mild pulmonary arterial systolic hypertension Nausea Obesity Reactive airway disease Sleep apnea Spondylosis of lumbar region without myelopathy or radiculopathy Type 2 diabetes mellitus Viral syndrome Home Medications lisinopril 40 mg PO DAILY 06/08/14 [History Last Taken 07/25/21] duloxetine 60 mg PO QHS 04/08/18 [History Last Taken 10/17/20] metformin 1,000 mg PO BIDCM 04/08/18 [History Last Taken 07/24/21] esomeprazole magnesium 40 mg capsule,delayed release 40 mg PO BID cap 03/06/20 [History Last Taken 10/17/20] magnesium oxide 500 mg capsule 500 mg PO BID 06/13/20 [History Last Taken 10/18/20] albuterol sulfate 90 mcg/actuation aerosol inhaler 2 inh INHALATION Q4H PRN PRN #18 gm 08/03/20 [Rx Last Taken 10/18/20] cholecalciferol (vitamin D3) 1,250 mcg (50,000 unit) capsule 50,000 unit PO TUFR cap 09/05/20 [History Last Taken 10/16/20] furosemide 20 mg tablet 20 mg PO DAILY tab 09/05/20 [History Last Taken 10/18/20] glipizide 10 mg tablet 20 mg PO BID tab 09/05/20 [History Last Taken Unknown] zolpidem 5 mg tablet 5 mg PO QHS tab 09/05/20 [History Last Taken 10/17/20] diltiazem HCl 180 mg PO QHS 10/18/20 [History Last Taken 07/25/21] metoprolol succinate 100 mg PO DAILY 10/18/20 [History Last Taken 07/25/21] pramipexole 1.5 mg PO QHS 10/18/20 [History Last Taken 10/17/20] atorvastatin 40 mg PO QHS 30 Days #30 tab 10/19/20 [Rx Last Taken Unknown] budesonide-formoterol HFA 160 mcg-4.5 mcg/actuation aerosol inhaler 2 puff INHALATION BID #1 ea 04/22/21 [Rx Last Taken Unknown] ferrous sulfate 325 mg (65 mg iron) tablet 325 mg PO DAILY tab 07/16/21 [History Last Taken Unknown] insulin degludec 100 unit/mL (3 mL) subcutaneous pen 40 unit SC BID ml 07/16/21 [History Last Taken Unknown] multivitamin 1 tab PO DAILY 07/16/21 [History Last Taken Unknown] Allergy/AdvReac Type Severity Reaction Status Date / Time Penicillins Allergy Hives Verified 08/28/21 21:27 Family History Father Cancer bladder cancer Hypertension Mother Diabetes Hypertension Sister Diabetes Surgical History History of carpal tunnel release History of cholecystectomy History of left heart catheterization (07/25/21) History of tubal ligation Social History Smoking Status: Former smoker how long ago did patient quit smokin alcohol intake: never substance use type: does not use caffeine: Yes Type: coffee Number of servings: 5 ROS ROS ED Constitutional Constitutional ED: Reports chills and fever(s) ENT ENT ED: Reports rhinorrhea and sore throat Cardiovascular Cardiovascular: Denies chest pain Respiratory/Chest Respiratory/Chest: Reports cough, dyspnea and sputum Gastrointestinal Gastrointestinal: Reports diarrhea, nausea and vomiting; Denies abdominal pain Genitourinary Genitourinary ED: Denies dysuria Musculoskeletal Musculoskeletal: Reports myalgias Integumentary Denies rash Neurologic Neurologic: Reports headache(s) Hematologic/Lymphatic Hematologic/Lymphatic: Denies easy bleeding or easy bruising EXAM Physical Exam Const Vital Signs: 08/28/21 21:27 08/28/21 21:29 08/28/21 22:47 Temperature 98.7 F 98.7 F 98 F Temperature Source Temporal Temporal Oral Pulse Rate 115 H 115 H 113 H Respiratory Rate 23 H 23 H 24 H Respiratory Effort Respiratory Depth Respiratory Pattern Blood Pressure 127/68 H 127/68 H 140/76 H Blood Pressure Mean 87 87 97 Pulse Ox 96 96 94 Oxygen Delivery Method Venturi Mask Venturi Mask Nasal Cannula Oxygen Flow Rate (L/min) 2 2 1 08/28/21 23:19 08/29/21 00:38 08/29/21 01:00 Temperature 98.0 F 98.1 F Temperature Source Oral Temporal Pulse Rate 113 H 118 H 117 H Respiratory Rate 24 H 24 H 18 Respiratory Effort Normal Non-Labored Respiratory Depth Normal Respiratory Pattern Normal Blood Pressure 142/71 H 168/75 H 160/69 H Blood Pressure Mean 94 106 99 Pulse Ox 93 94 91 Oxygen Delivery Method Nasal Cannula Nasal Cannula Oxygen Flow Rate (L/min) 2 2 Positive well nourished, well developed and obese General Appearance ED: well developed Nutritional Appearance: obese HEENT Reports dry mucous membranes HEENT Narrative: Cobblestoning the posterior pharynx consistent with sinus drainage but no airway edema or compromise Mouth ED: Yes dry mucous membranes Mouth: dry mucous membranes Eyes PERRL and EOMs intact bilaterally General Eye ED: Negative for scleral icterus Neck supple and no JVD Neck Narrative: Positive anterior cervical lymphadenopathy noted Chest Wall palpation of chest normal Resp Resp Narrative: Patient is tachypneic with mild accessory muscle use. Breath sounds are diminished throughout with faint rhonchi in the bilateral bases and diffuse expiratory wheezes. Cardio regular rhythm Rate: tachycardic GI non-distended GI Narrative: Abdomen is obese soft and nondistended with hyperactive bowel sounds. There is mild diffuse pain on palpation without voluntary guarding or rigidity. No pulsatile mass or fluid wave noted. Palpation: soft Extremity Extremity Narrative: +1-2 pitting edema that is equal and symmetric and consistent with patient's history of CHF. Negative Homans' sign bilaterally Neuro oriented x3 and CN's II-XII intact bilaterally Sensorium / Orientation: alert Motor Exam: strength 5/5 throughout Psych mental status grossly normal Skin no rashes or lesions noted Skin Narrative: Skin turgor slightly increased MDM MDM MDM Narrative Medical decision making narrative: Patient presented to the ER tachycardic with tachypnea and mild increased work of breathing. Her constellation of symptoms and COVID exposure is concern for breakthrough COVID infection despite her vaccination status. The patient states that she wears oxygen occasionally and the oxygen she was on was turned off upon arrival. With this she dropped to 88% just at rest. Therefore patient was placed back on nasal cannula oxygen and a work-up was performed to check for COVID as well as cardiac damage and or PE as she is tachycardic and hypoxic. Work-up was positive for COVID but otherwise showed no clinically significant lab abnormality. CT of the chest revealed no PE pneumothorax or infection. Despite these findings patient remained tachycardic and even on a few liters nasal cannula oxygen could drop into the 87 to 88% with minimal motion in bed. Therefore with her persistent hypoxia and tachycardia as well as COVID diagnosis and underlying medical conditions there is concern that she will continue to decompensate over time and therefore will be admitted to the hospital for further care. Lab Data Attestation: I reviewed the patient's lab results. Labs: Laboratory Results - last 24 hr 08/28/21 08/28/21 08/28/21 23:03 23:03 23:03 WBC 9.0 RBC 4.31 Hgb 10.6 L Hct 35.4 L MCV 82.1 MCH 24.6 L MCHC 29.9 L RDW Std Deviation 47.1 H RDW Coeff of Moris 15.8 H Plt Count 279 MPV 9.7 Immature Gran % (Auto) 1.600 H Neut % (Auto) 76.9 H Lymph % (Auto) 7.8 L [place] % (Auto) 11.7 H Eos % (Auto) 1.6 Baso % (Auto) 0.4 Absolute Neuts (auto) 6.9 Absolute Lymphs (auto) 0.70 L Nucleated RBC % 0 PT INR APTT Sodium 139 Potassium 4.2 Chloride 103 Carbon Dioxide 30.0 Anion Gap 6 BUN 16 Creatinine 1.01 Estim Creat Clear Calc 49.23 Est GFR (MDRD) Af Amer 71 Est GFR (MDRD) Non-Af 59 L BUN/Creatinine Ratio 15.8 Glucose 160 H Lactic Acid 1.3 Calcium 8.5 Magnesium 1.6 Total Bilirubin 0.20 Direct Bilirubin 0.08 AST 85 H ALT 41 Alkaline Phosphatase 84 Troponin I High Sens 5 B-Natriuretic Peptide Total Protein 6.5 Albumin 2.9 L Globulin 3.6 Lipase 231 08/28/21 08/28/21 23:03 23:03 WBC RBC Hgb Hct MCV MCH MCHC RDW Std Deviation RDW Coeff of Moris Plt Count MPV Immature Gran % (Auto) Neut % (Auto) Lymph % (Auto) [place] % (Auto) Eos % (Auto) Baso % (Auto) Absolute Neuts (auto) Absolute Lymphs (auto) Nucleated RBC % PT 12.4 INR 1.0 APTT 26.0 Sodium Potassium Chloride Carbon Dioxide Anion Gap BUN Creatinine Estim Creat Clear Calc Est GFR (MDRD) Af Amer Est GFR (MDRD) Non-Af BUN/Creatinine Ratio Glucose Lactic Acid Calcium Magnesium Total Bilirubin Direct Bilirubin AST ALT Alkaline Phosphatase Troponin I High Sens B-Natriuretic Peptide 47.7 Total Protein Albumin Globulin Lipase Radiography Diagnostic Testing: Clinical Impression(s) from Imaging Studies Chest CTA 08/29/21 22:15 IMPRESSION: No pulmonary embolism to the subsegmental level. No acute cardiopulmonary disease. Electronically Signed: Chava Chauhan MD at 0:56 EDT , Discharge Plan Triage Chief Complaint: Shortness of Breath ED Provider: Jp Storey Dx/Rx/DC Orders Clinical Impression: COVID-19, Essential (primary) hypertension, BMI 40.0-44.9, adult Primary Care Provider: Kate Spencer Disposition Disposition[facility] Acute [facility]
[2021-08-28] MEDS: Ondansetron 4 MG/2 ML Vial IV (23:09)
[2021-08-28] MEDS: dexAMETHasone 10 MG/ML Vial IV (23:09)
[2021-08-28] MEDS: Morphine 4 MG/ML Syringe IV (23:09)
[2021-08-28 23:12] LABS: Absolute Neutrophil Count 6.9 X10^3/uL (2.0-7.7); Basophil# 0.04 X10^3/uL; Basophil% 0.4 % (0-1); Eosinophil# 0.14 X10^3/uL; Eosinophils% 1.6 % (0-5); Hematocrit 35.4 % (37-47); Hemoglobin 10.6 g/dL (12.0-15.0); Lymphocyte % 7.8 % (19-41); Mean Corp Hgb Conc 29.9 g/dL (32-36); Mean Corpuscular Hgb 24.6 pg (27.0-32.0); Mean Corpuscular Volume 82.1 fL (81-99); Mean Platelet Vol. 9.7 fl (6.2-12.0); Monocyte# 1.05 X10^3/uL; Monocyte% 11.7 % (0-10); NRBC Flagged by Analyzer 0 % (0-5); Neutrophil # 6.89 X10^3/uL (2.7-7.7); Neutrophil % 76.9 % (47-70); Platelet Count 279 K/mm3 (150-450); RBC Distribution Width CV 15.8 % (11.6-14.6); RBC Distribution Width SD 47.1 fl (35.1-43.9); Red Blood Count 4.31 M/mm3 (4.2-5.4)
[2021-08-28 23:19] VITALS: BP 142/71; PULSE 113; RESP 24; TEMP 36.7; O2SAT 93
[2021-08-28 23:40] LABS: Prothrombin Time (Protime)PT. 12.4 SECONDS (11.7-14.9)
[2021-08-28 23:59] LABS: AST(SGOT) 85 U/L (15-37); Alanine Aminotransfer ALT/SGPT 41 U/L (13-56); Albumin, Serum 2.9 g/dL (3.2-5.0); Alkaline Phosphatase 84 U/L (45-117); Anion Gap 6 (5-15); BUN 16 mg/dL (7-18); BUN/Creat Ratio 15.8 RATIO (10-20); Bilirubin, Direct 0.08 mg/dL (0.00-0.30); Calcium,Total 8.5 mg/dL (8.5-10.1); Chloride 103 mmol/L (98-107); Creatinine, Serum 1.01 mg/dL (0.55-1.02); EST Glomerular Filtration Rate 59 mL/min (>60); Est Glom Filt Rate - Afr Amer 71 mL/min (>60); Estimated Creatinine Clearance 49.23 ml/min; Globulin 3.6 g/dL (2.2-4.2); Glucose 160 mg/dL (74-106); Lactic Acid 1.3 mmol/L (0.4-1.9); Lipase 231 U/L (73-393); Magnesium 1.6 mg/dL (1.6-2.6); Potassium 4.2 mmol/L (3.5-5.1); Protein, Total 6.5 g/dL (6.4-8.2); Sodium Level 139 mmol/L (136-145); Troponin-I HS 5 pg/mL (3.0-54.0)
[2021-08-29] VITALS (18 sets, daily range): BP systolic 130–168; BP diastolic 61–87; PULSE 68–118; RESP 12–24; TEMP 35.3–36.7; O2SAT 91–99; BMI 46.4
[2021-08-29 00:31] LABS: BNP,B-Type NATRIURETIC PEPTIDE 47.7 pg/mL (0-100)
--- NOTE | 2021-08-29 01:19 | PCM.HP.STD ---
HPI - General HPI Narrative ALNA GODOY, is a 61 F with a significant history of CKD stage IIIa; former smoker; reactive airway disease on as needed home oxygen; obstructive sleep apnea; hypertension; diastolic heart failure who presents over the emergency department with COVID-like symptoms. His symptoms started about 2 days ago and it has been persistent. She described her COVID-like symptoms as headache; nausea vomiting and diarrhea. Further she has chest congestion and shortness of breath. She reports a productive cough. She reports malaise. Reportedly typically her temperature is about 96 ?F . However her temperature has increased to about 99 Fahrenheit. Subjectively she feel feverish and she has chills. She has a good appetite but unable to eat because of vomiting. She reports myalgia. Of note the boyfriend of patient's daughter who lives with patient recently had COVID infection. Patient has had COVID 19 Pfizer vaccination with a one-time booster. [facility] Medical History Dyspnea on exertion Elevated heart rate with elevated blood pressure and diagnosis of hypertension Essential (primary) hypertension Former smoker GERD (gastroesophageal reflux disease) Grade I diastolic dysfunction History of Bahena's esophagus History of home oxygen therapy Hx of congestive heart failure Hyperlipidemia Hypoxia Influenza A Low back pain Mild pulmonary arterial systolic hypertension Nausea Obesity Reactive airway disease Sleep apnea Spondylosis of lumbar region without myelopathy or radiculopathy Type 2 diabetes mellitus Viral syndrome Home Medications lisinopril 40 mg PO DAILY 06/08/14 [History Last Taken 07/25/21] duloxetine 60 mg PO QHS 04/08/18 [History Last Taken 10/17/20] metformin 1,000 mg PO BIDCM 04/08/18 [History Last Taken 07/24/21] esomeprazole magnesium 40 mg capsule,delayed release 40 mg PO BID cap 03/06/20 [History Last Taken 10/17/20] magnesium oxide 500 mg capsule 500 mg PO BID 06/13/20 [History Last Taken 10/18/20] albuterol sulfate 90 mcg/actuation aerosol inhaler 2 inh INHALATION Q4H PRN PRN #18 gm 08/03/20 [Rx Last Taken 10/18/20] cholecalciferol (vitamin D3) 1,250 mcg (50,000 unit) capsule 50,000 unit PO TUFR cap 09/05/20 [History Last Taken 10/16/20] furosemide 20 mg tablet 20 mg PO DAILY tab 09/05/20 [History Last Taken 10/18/20] glipizide 10 mg tablet 20 mg PO BID tab 09/05/20 [History Last Taken Unknown] zolpidem 5 mg tablet 5 mg PO QHS tab 09/05/20 [History Last Taken 10/17/20] diltiazem HCl 180 mg PO QHS 10/18/20 [History Last Taken 07/25/21] metoprolol succinate 100 mg PO DAILY 10/18/20 [History Last Taken 07/25/21] pramipexole 1.5 mg PO QHS 10/18/20 [History Last Taken 10/17/20] atorvastatin 40 mg PO QHS 30 Days #30 tab 10/19/20 [Rx Last Taken Unknown] budesonide-formoterol HFA 160 mcg-4.5 mcg/actuation aerosol inhaler 2 puff INHALATION BID #1 ea 04/22/21 [Rx Last Taken Unknown] ferrous sulfate 325 mg (65 mg iron) tablet 325 mg PO DAILY tab 07/16/21 [History Last Taken Unknown] insulin degludec 100 unit/mL (3 mL) subcutaneous pen 40 unit SC BID ml 07/16/21 [History Last Taken Unknown] multivitamin 1 tab PO DAILY 07/16/21 [History Last Taken Unknown] Allergy/AdvReac Type Severity Reaction Status Date / Time Penicillins Allergy Hives Verified 08/28/21 21:27 Family History Father Cancer bladder cancer Hypertension Mother Diabetes Hypertension Sister Diabetes Surgical History History of carpal tunnel release History of cholecystectomy History of left heart catheterization (07/25/21) History of tubal ligation Social History Smoking Status: Former smoker how long ago did patient quit smokin alcohol intake: never substance use type: does not use caffeine: Yes Type: coffee Number of servings: 5 ROS ROS Narrative Pertinent positives and pertinent negatives as noted in HPI. All other systems were reviewed and are negative. Vital Signs Vital Signs Vital Signs: 08/28/21 21:27 08/28/21 21:29 08/28/21 22:47 Temperature 98.7 F 98.7 F 98 F Temperature Source Temporal Temporal Oral Pulse Rate 115 H 115 H 113 H Respiratory Rate 23 H 23 H 24 H Respiratory Effort Respiratory Depth Respiratory Pattern Blood Pressure 127/68 H 127/68 H 140/76 H Blood Pressure Mean 87 87 97 Pulse Ox 96 96 94 Oxygen Delivery Method Venturi Mask Venturi Mask Nasal Cannula Oxygen Flow Rate (L/min) 2 2 1 08/28/21 23:19 08/29/21 00:38 08/29/21 01:00 Temperature 98.0 F 98.1 F Temperature Source Oral Temporal Pulse Rate 113 H 118 H 117 H Respiratory Rate 24 H 24 H 18 Respiratory Effort Normal Non-Labored Respiratory Depth Normal Respiratory Pattern Normal Blood Pressure 142/71 H 168/75 H 160/69 H Blood Pressure Mean 94 106 99 Pulse Ox 93 94 91 Oxygen Delivery Method Nasal Cannula Nasal Cannula Oxygen Flow Rate (L/min) 2 2 Weight Weight: 126.2 kg Body Mass Index (BMI) 47.7 Physical Exam Narrative Physical exam: General: Well-nourished, well-developed. Head: Normocephalic, atraumatic, no tenderness Eyes: Vision is grossly intact. EOMI ENT, no trauma, moist mucous membranes, no rhinorrhea Neck: Nontender, full range of motion, no spinal tenderness, deformities, step-off CVS: Regular rate and rhythm. S1-S2 present. No murmur, gallop or rub. Respiratory : Tachypnea; mild wheezes; no respiratory distress Abdomen: Soft, nontender, nondistended, normal bowel sounds, no masses : Deferred Back: Nontender, no CVA tenderness, no midline spinal tenderness, deformities, step-offs Extremities: Nontender full range of motion, no trauma Skin: Normal color, no trauma, abrasions Neuro: Alert, oriented, cranial nerves II through XII grossly intact. Psychiatry: Normal mood. Normal affect. Not depressed. Not anxious. Results Lab / Micro Data Result Diagrams: 08/28/21 23:03 08/28/21 23:03 Labs: Laboratory Results - last 24 hr 08/28/21 23:03: WBC 9.0, RBC 4.31, Hgb 10.6 L, Hct 35.4 L, MCV 82.1, MCH 24.6 L, MCHC 29.9 L, RDW Std Deviation 47.1 H, RDW Coeff of Moris 15.8 H, Plt Count 279, MPV 9.7, Immature Gran % (Auto) 1.600 H, Neut % (Auto) 76.9 H, Lymph % (Auto) 7.8 L, [place] % (Auto) 11.7 H, Eos % (Auto) 1.6, Baso % (Auto) 0.4, Absolute Neuts (auto) 6.9, Absolute Lymphs (auto) 0.70 L, Nucleated RBC % 0 08/28/21 23:03: Sodium 139, Potassium 4.2, Chloride 103, Carbon Dioxide 30.0, Anion Gap 6, BUN 16, Creatinine 1.01, Estim Creat Clear Calc 49.23, Est GFR (MDRD) Af Amer 71, Est GFR (MDRD) Non-Af 59 L, BUN/Creatinine Ratio 15.8, Glucose 160 H, Calcium 8.5, Magnesium 1.6, Total Bilirubin 0.20, Direct Bilirubin 0.08, AST 85 H, ALT 41, Alkaline Phosphatase 84, Troponin I High Sens 5, Total Protein 6.5, Albumin 2.9 L, Globulin 3.6, Lipase 231 08/28/21 23:03: Lactic Acid 1.3 08/28/21 23:03: B-Natriuretic Peptide 47.7 08/28/21 23:03: PT 12.4, INR 1.0, APTT 26.0 Micro: Microbiology 08/28/21 22:35 Nasal Secretion SARS-CoV-2 & FLU Antigen (Rapid) - Final SARS-CoV-2 (COVID 19) Radiology Impression Chest CTA 08/29/21 22:15 IMPRESSION: No pulmonary embolism to the subsegmental level. No acute cardiopulmonary disease. Electronically Signed: Chava Chauhan MD at 0:56 EDT , Assessment & Plan Assessment/Plan (1) Acute on chronic respiratory failure with hypoxemia: (2) COVID-19: PLAN: Acute on chronic hypoxemic respiratory failure secondary to SARS- COV 2 Patient is on home oxygen as needed at home and required supplemental oxygenation including a Venturi mask at emergency department. Rapid antigen at the emergency department was positive. Chest CTA was visualized and independently interpreted. I agree with radiologist interpretation of no acute cardiopulmonary process. IV Decadron ordered emergency department. P.o. Decadron ordered while inpatient. Echocardiogram on 05/13/2020 was reviewed. Echocardiogram at that time showed grade 1 diastolic dysfunction. Estimated ejection fraction was 65%. Pulmonary artery systolic pressure was 44 mmHg. There was mild tricuspid valve insufficiency. AST is elevated at 85 but less than 10% of upper limit of normal. ALT is normal. Creatinine clearance is more than 30. We will start patient on remdesivir. Will trend CMP. CBC showed normal white count but with bandemia of 1.6%; neutrophilia of 76.9% and lymphopenia of 7.8. Also patient has monocytosis. Trend CBC Tylenol for fever Mucinex ordered Pro air as needed ordered. Home ICS?LABA continued. Diabetes mellitus with nephropathy Patient with hyperglycemia on presentation Glipizide and basal insulin continue. Hold metformin. Accu-Chek QA [facility] with correction scale insulin ordered. Tachycardia Noted to have sinus tachycardia on presentation. Patient reports history of tachycardia. Cardizem continued. Metoprolol continued. Placed on telemetry. Hypertension Blood pressure is not within goal Metoprolol; Cardizem and lisinopril continued continued. As needed Catapres ordered Trend blood pressure and adjust blood pressure medications. CKD stage IIIa Stable Trend CMP. DVT prophylaxis Subcutaneous Lovenox ordered. Charges/Coding Visit Charges Inpatient E&M: 00080 Init Hosp L3
[2021-08-29] MEDS: guaiFENesin 1,200 MG Tablet 1200 MG PO ×3 (04:22→21:40)
[2021-08-29] MEDS: 0.9% Saline Lock 10 ML Syringe IV ×2 (04:22→21:30)
[2021-08-29] MEDS: Acetaminophen 325 MG Tablet 650 MG PO ×2 (04:41→14:04)
[2021-08-29 05:57] LABS: Absolute Lymphocyte Count 0.57 X10^3/uL (0.83-4.51); Absolute Neutrophil Count 6.4 X10^3/uL (2.0-7.7); Basophil# 0.03 X10^3/uL; Basophil% 0.4 % (0-1); Eosinophil# 0.01 X10^3/uL; Eosinophils% 0.1 % (0-5); Hematocrit 38.6 % (37-47); Hemoglobin 11.4 g/dL (12.0-15.0); Lymphocyte # 0.57 X10^3/ul (0.83-4.51); Lymphocyte % 7.7 % (19-41); Mean Corp Hgb Conc 29.5 g/dL (32-36); Mean Corpuscular Hgb 24.4 pg (27.0-32.0); Mean Corpuscular Volume 82.7 fL (81-99); Monocyte# 0.25 X10^3/uL; Monocyte% 3.4 % (0-10); NRBC Flagged by Analyzer 0 % (0-5); Neutrophil % 86.5 % (47-70); POSITIVE DIFFERENTIAL YES; Platelet Count 285 K/mm3 (150-450); RBC Distribution Width CV 15.8 % (11.6-14.6); RBC Distribution Width SD 47.6 fl (35.1-43.9); Red Blood Count 4.67 M/mm3 (4.2-5.4); White Blood Count 7.4 K/mm3 (4.4-11.0)
[2021-08-29 06:06] LABS: Differential Indicated SCAN CRITERIA MET
[2021-08-29] MEDS: Insulin Lispro 100 UNIT/ML INSULN.PEN SC ×5 (06:39→21:35)
[2021-08-29 06:40] LABS: Differential Comment SCANNED
[2021-08-29 06:41] LABS: ALB/GLOB Ratio 0.8 RATIO (0.9-2.4); AST(SGOT) 107 U/L (15-37); Alanine Aminotransfer ALT/SGPT 51 U/L (13-56); Albumin, Serum 3.1 g/dL (3.2-5.0); Alkaline Phosphatase 96 U/L (45-117); Anion Gap 6 (5-15); BUN 15 mg/dL (7-18); BUN/Creat Ratio 14.4 RATIO (10-20); Calcium,Total 8.6 mg/dL (8.5-10.1); Chloride 102 mmol/L (98-107); Creatinine, Serum 1.04 mg/dL (0.55-1.02); EST Glomerular Filtration Rate 57 mL/min (>60); Est Glom Filt Rate - Afr Amer 69 mL/min (>60); Estimated Creatinine Clearance 47.81 ml/min; Globulin 4.1 g/dL (2.2-4.2); Glucose 392 mg/dL (74-106); Potassium 4.6 mmol/L (3.5-5.1); Protein, Total 7.2 g/dL (6.4-8.2); Sodium Level 135 mmol/L (136-145)
[2021-08-29 07:20] LABS: Bedside Glucose 459 mg/dL (74-106)
[2021-08-29] MEDS: Insulin Glargine-YFGN 100 UNIT/ML Pen 40 UNIT SC (08:10)
[2021-08-29] MEDS: glipiZIDE 10 MG Tablet 20 MG PO ×2 (08:13→16:26)
[2021-08-29] MEDS: dexAMETHasone 4 MG Tablet 6 MG PO (08:13)
[2021-08-29] MEDS: Lisinopril 40 MG Tablet PO (08:14)
[2021-08-29] MEDS: Enoxaparin 40 MG/0.4 ML Syringe SC ×2 (08:14→21:29)
[2021-08-29] MEDS: Magnesium Chloride 64 MG Delay Rel.Tablet 128 MG PO ×2 (08:14→21:39)
[2021-08-29] MEDS: Multivitamins,Therapeutic Tablet 1 TABLET PO (08:14)
[2021-08-29] MEDS: Furosemide 20 MG Tablet PO (08:15)
[2021-08-29] MEDS: Pantoprazole Sodium 40 MG Tablet PO ×2 (08:15→21:41)
[2021-08-29] MEDS: Metoprolol(XL)Succ 100 MG Tablet PO (08:15)
[2021-08-29] MEDS: Ferrous Sulfate 325 MG Tablet PO (08:15)
--- NOTE | 2021-08-29 09:36 | CASEMGMT ---
RN CM AUTOMOTIVE REPAIR TECHNICIAN ABHISHEK placed call to pt's room for initial transition planning/care coordination assessment. SAMARA WEISS introduced self and role at [facility]. Pt voices understanding and consents to assessment at this time. Pt is A/O at this time and answers all questions appropriately. Care providers, pharmacy, and demographics verified/updated at this time. PCP: Dr Spencer Specialists: Dr Evangelista-cardiology, Dr Crouch-pulmonolgy Preferred Pharmacy: [facility] retail Insurance: [employer] Prescription Benefit: Yes Living Will/HPOA: Pt does not currently have LW/HCPOA and declines info at this time. Pt made aware that she can contact SW as an out-pt and make appt in the future if she decides she would like to talk with someone about this or would like to utilize [facility] social work for advanced directive completion. LNOK: daughter, Мария. Also has another daughter who lives in [place]. Mother, Reshma Living Arrangements: Lives in a mobile home w/one step to enter. Dtr, Мария, and Мария's BF live w/pt. Pt is independent w/ADL's and IADL's. Dtr and her BF usually get the groceries. Transportation: Pt states drives self but does not have a vehicle at the moment. Dtr, Мария, will take her home @ d/c. DME: States has the following DME: functioning glucometer w/supplies, pulse ox, BIPAP from [facility]. O2 @ 2 L/M as needed through [facility]. Has portable tank @ home--dtr, Мария, can bring in if needed @ d/c. Call placed to [facility]. Pt's current O2 orders are 2 l/m w/exertion. Pt states no need for further DME at this time. HHC/SNF: No hx of either. No needs identified. Pt wishes to return home and states has no concerns with going home at time of discharge. CM to follow for any increase in home oxygen needs and any further discharge planning/needs. Pt voices no further concerns/needs at this time. Advised pt to ask for CM if any further questions/concerns/needs arise. Voices understanding. PLAN: Home w/family support and discharge plans in place. Will need updated O2 script if requires more than 2l/m w/exertion. Will need adaptor for O2 bleed-in via BIPAP if O2 needed @ HS. DtrМария, can bring in portable O2 tank @ d/c. Bi HOFFMANNN RN CM
[2021-08-29] MEDS: Insulin Glargine-YFGN 100 UNIT/ML Pen 20 UNIT SC (10:54)
[2021-08-29 11:11] LABS: Bedside Glucose 451 mg/dL (74-106)
--- NOTE | 2021-08-29 12:57 | PN.HOSP_ITS ---
Subjective Subjective Follow-up on acute COVID infection/hypoxia: Patient was seen and examined. She is on 2 L of oxygen. She stated her symptoms started the day prior to admission with nausea and vomiting. She denied any loss of smell or taste. She has been having hot and cold flashes at home. Objective Data Objective Data Vital Signs: Vital Signs Temp Pulse Resp BP Pulse Ox 96.8 F L 100 16 145/66 H 99 08/29/21 08:02 08/29/21 11:09 08/29/21 08:02 08/29/21 08:02 08/29/21 08:40 Oxygen Flow Rate (L/min) 2 Oxygen Delivery Method Nasal Cannula Weight: 122.8 kg Body Mass Index (BMI) 46.4 Intake & Output: Intake and Output for Last 24 Hours 08/27/21 08/28/21 08/29/21 23:59 23:59 23:59 Intake Total 500 / 500 490 / 490 Balance 500 / 500 490 / 490 Lab / Micro Data Result Diagrams: 08/29/21 05:51 08/29/21 05:51 Labs: Laboratory Results - last 24 hr 08/28/21 23:03: WBC 9.0, RBC 4.31, Hgb 10.6 L, Hct 35.4 L, MCV 82.1, MCH 24.6 L, MCHC 29.9 L, RDW Std Deviation 47.1 H, RDW Coeff of Moris 15.8 H, Plt Count 279, MPV 9.7, Immature Gran % (Auto) 1.600 H, Neut % (Auto) 76.9 H, Lymph % (Auto) 7.8 L, [place] % (Auto) 11.7 H, Eos % (Auto) 1.6, Baso % (Auto) 0.4, Absolute Neuts (auto) 6.9, Absolute Lymphs (auto) 0.70 L, Nucleated RBC % 0 08/28/21 23:03: Sodium 139, Potassium 4.2, Chloride 103, Carbon Dioxide 30.0, Anion Gap 6, BUN 16, Creatinine 1.01, Estim Creat Clear Calc 49.23, Est GFR (MDRD) Af Amer 71, Est GFR (MDRD) Non-Af 59 L, BUN/Creatinine Ratio 15.8, Glucose 160 H, Calcium 8.5, Magnesium 1.6, Total Bilirubin 0.20, Direct Bilirubin 0.08, AST 85 H, ALT 41, Alkaline Phosphatase 84, Troponin I High Sens 5, Total Protein 6.5, Albumin 2.9 L, Globulin 3.6, Lipase 231 08/28/21 23:03: Lactic Acid 1.3 08/28/21 23:03: B-Natriuretic Peptide 47.7 08/28/21 23:03: PT 12.4, INR 1.0, APTT 26.0 08/29/21 05:51: WBC 7.4, RBC 4.67, Hgb 11.4 L, Hct 38.6, MCV 82.7, MCH 24.4 L, MCHC 29.5 L, RDW Std Deviation 47.6 H, RDW Coeff of Moris 15.8 H, Plt Count 285, MPV 10.0, Immature Gran % (Auto) 1.900 H, Neut % (Auto) 86.5 H, Lymph % (Auto) 7.7 L, [place] % (Auto) 3.4, Eos % (Auto) 0.1, Baso % (Auto) 0.4, Absolute Neuts (auto) 6.4, Absolute Lymphs (auto) 0.57 L, Nucleated RBC % 0, Differential Comment SCANNED 08/29/21 05:51: Sodium 135 L, Potassium 4.6, Chloride 102, Carbon Dioxide 27.0, Anion Gap 6, BUN 15, Creatinine 1.04 H, Estim Creat Clear Calc 47.81, Est GFR (MDRD) Af Amer 69, Est GFR (MDRD) Non-Af 57 L, BUN/Creatinine Ratio 14.4, Glucose 392 H, Calcium 8.6, Total Bilirubin 0.40, AST 107 H, ALT 51, Alkaline Phosphatase 96, Total Protein 7.2, Albumin 3.1 L, Globulin 4.1, Albumin/Globulin Ratio 0.8 L 08/29/21 05:51: Magnesium 2.0 08/29/21 06:00: POC Glucose 459 H* 08/29/21 10:53: POC Glucose 451 H* Micro: Microbiology 08/28/21 22:35 Nasal Secretion SARS-CoV-2 & FLU Antigen (Rapid) - Final SARS-CoV-2 (COVID 19) Radiography Diagnostic Testing: Radiology Impression Chest CTA 08/29/21 22:15 IMPRESSION: No pulmonary embolism to the subsegmental level. No acute cardiopulmonary disease. Electronically Signed: Chava Chauhan MD at 0:56 EDT , Physical Exam Narrative Physical exam: General: Alert, Oriented x3, Cooperative, on 2 L of oxygen HEENT: Atraumatic Oral: Moist Mucosa Neck: Supple Lungs: Diminished to auscultation Cardiovascular: HS I+II, regular, no murmurs Abdomen: Bowel Sounds Present, Soft, Non Tender Extremities: No edema Skin: No rashes, No breakdown Neurological: Grossly intact Psych/Mental Status: Appropriate Assessment & Plan Assessment/Plan (1) Acute on chronic respiratory failure with hypoxemia: (2) COVID-19: PLAN: 1. Acute on chronic hypoxemic respiratory failure secondary to acute COVID-19 infection Patient is on oxygen as needed at home; currently on 2 L of oxygen Started on remdesivir and Decadron Continue to encourage use of incentive spirometer Wean off oxygen 2. Type 2 DM, complicated by nephropathy, blood sugars are uncontrolled because of steroids Lantus increased from 40 units twice daily to 60 units twice daily Continue on glipizide 20mg BID Continue with insulin sliding scale 3. Hypertension, fairly controlled, continue metoprolol, Cardizem, lisinopril Continue to monitor blood pressures 4. CKD stage IIIa, Cr remains baseline 5. DVT prophylaxis - Lovenox Subcutaneous Lovenox ordered. Charges/Coding Visit Charges Inpatient E&M: 55893 Subs Hosp L2
[2021-08-29] MEDS: Pramipexole Di-HCl 1 MG Tablet 1.5 MG PO (16:24)
[2021-08-29] MEDS: Insulin Glargine-YFGN 100 UNIT/ML Pen 60 UNIT SC (16:30)
[2021-08-29 16:45] LABS: Bedside Glucose 310 mg/dL (74-106)
[2021-08-29] MEDS: dilTIAZem CD 180 MG Capsule PO (21:38)
[2021-08-29] MEDS: Zolpidem Tartrate 5 MG Tablet PO (21:38)
[2021-08-29] MEDS: DULoxetine Hcl 60 MG Capsule PO (21:38)
[2021-08-29] MEDS: Atorvastatin Calcium 40 MG Tablet PO (21:39)
[2021-08-29] MEDS: Pramipexole Di-HCl 0.5 MG Tablet 1.5 MG PO (21:40)
--- NOTE | 2021-08-29 22:15 | CT_ITS ---
STUDY: CTA CHEST REASON FOR EXAM: Female, 61 years old. hypoxia RADIATION DOSAGE (If Supplied By Facility): CTDIvol = ( 15.04 ) mGy, DLP = ( 529.46 ) mGycm TECHNIQUE: The examination was performed with the intravenous administration of IV 100mL Isovue-370. Post-processing of the angiographic images was performed, with multiplanar reformation and 3D reconstruction. Individualized dose optimization techniques were used for this CT. COMPARISON: CT chest 06/08/2020. LIMITATIONS: None. LUNGS: Normal. AORTA/GREAT VESSELS: No aneurysm.. PULMONARY VESSELS: Normal. PLEURA: Normal. MEDIASTINUM: Normal. UPPER ABDOMEN: Status post cholecystectomy. Partially visualized cystic changes in the left kidney. The liver is diffusely hypoattenuating, suggestive of hepatic steatosis.. BONES/SOFT TISSUES: Normal. OTHER: None. CT/CTA Chest W/WO Contrast IMPRESSION: No pulmonary embolism to the subsegmental level. No acute cardiopulmonary disease. Electronically Signed: Chava Chauhan MD at 0:56 EDT ,
[2021-08-29] MEDS: INHALER, ASSIST DEVICES 1 EACH SPACER INHALATION (22:19)
[2021-08-30] VITALS (8 sets, daily range): BP systolic 141–158; BP diastolic 67–75; PULSE 70–88; RESP 12–18; TEMP 35.8–36.3; O2SAT 87–99
[2021-08-30 00:21] LABS: Bedside Glucose 344 mg/dL (74-106)
[2021-08-30] MEDS: Acetaminophen 325 MG Tablet 650 MG PO ×2 (04:50→14:51)
[2021-08-30] MEDS: 0.9% Saline Lock 10 ML Syringe IV (08:57)
[2021-08-30] MEDS: Ondansetron 4 MG/2 ML Vial IV (08:57)
[2021-08-30] MEDS: Enoxaparin 40 MG/0.4 ML Syringe SC (09:01)
[2021-08-30] MEDS: Insulin Glargine-YFGN 100 UNIT/ML Pen 60 UNIT SC (09:01)
[2021-08-30] MEDS: dexAMETHasone 4 MG Tablet 6 MG PO (09:02)
[2021-08-30] MEDS: guaiFENesin 1,200 MG Tablet 1200 MG PO (09:02)
[2021-08-30] MEDS: Insulin Lispro 100 UNIT/ML INSULN.PEN SC ×2 (09:02→11:19)
[2021-08-30] MEDS: Pantoprazole Sodium 40 MG Tablet PO (09:03)
[2021-08-30] MEDS: Multivitamins,Therapeutic Tablet 1 TABLET PO (09:03)
[2021-08-30] MEDS: Magnesium Chloride 64 MG Delay Rel.Tablet 128 MG PO (09:03)
[2021-08-30] MEDS: Lisinopril 40 MG Tablet PO (09:04)
[2021-08-30] MEDS: Metoprolol(XL)Succ 100 MG Tablet PO (09:04)
[2021-08-30] MEDS: Furosemide 20 MG Tablet PO (09:04)
[2021-08-30] MEDS: Ergocalciferol 1.25 MG (50, 000 UNIT) Capsule PO (09:04)
[2021-08-30] MEDS: Ferrous Sulfate 325 MG Tablet PO (09:04)
[2021-08-30] MEDS: glipiZIDE 10 MG Tablet 20 MG PO (09:04)
[2021-08-30 09:25] LABS: Bedside Glucose 189 mg/dL (74-106)
--- NOTE | 2021-08-30 10:58 | CASEMGMT ---
Green sheet on chart for increased home oxygen need. Pt needs to be tested on 2L nc w/ exertion. Jimmy PASCUAL CM
[2021-08-30 11:25] LABS: Bedside Glucose 278 mg/dL (74-106)
--- NOTE | 2021-08-30 13:54 | CASEMGMT ---
Per Pat, pt's home dose is 2L nc w/ exertion. Pt tested and does not qualify for increased home oxygen at discharge. Pt has been up independent in room and voices no further concerns with going home at discharge. Pt already has pulse ox at home. Jimmy PASCUAL CM
--- NOTE | 2021-08-30 14:17 | PCM.DC ---
Discharge Instructions Diet Discharge Diet: 1800 Calorie Control Diet and 2000 mg Sodium Diet Activity Discharge Activity: Return to Normal Activity Follow Up Care Test Results: Test results from this visit will be discussed in further detail at your follow-up appointment, if applicable. Discharge Plan Admission Admit Date/Time: 08/29/21 01:20 Primary Reason for Your Visit: Acute COVID-19 infection Attending Provider: Rachael Mortensen Primary Care Provider: Kate Spencer Instructions Additional Instructions / Restrictions: You are being discharged with oxygen. Continue to use your oxygen with exertion. Continue to use your incentive spirometer. Continue to remain active and eat healthy. Let your doctor know if you develop fever >101.3F or have progressive worsening shortness of breath. Follow-up with your primary care doctor to have your continued oxygen use reevaluated. Be careful of going near open flames whilst on oxygen. Complete your Decadron as prescribed. Continue to use your inhaler as needed for shortness of breath. Continue to quarantine for 10 days total from the start of your symptoms. Discharge Orders/Prescriptions Prescriptions: New insulin glargine-yfgn 100 unit/mL (3 mL) Insulin Pen 60 unit subcut BIDCM 30 Days Qty: 36 RF: 0 Mucus Relief ER 1,200 mg Tablet Extended Release 12hr 1,200 mg PO BID 7 Days Qty: 14 RF: 0 dexamethasone 6 mg tablet 6 mg PO DAILY 8 Days Qty: 8 RF: 0 Continued albuterol sulfate 90 mcg/actuation HFA aerosol inhaler 2 inh INHALATION Q4H PRN PRN (Reason: Sob &/Or Wheezing) Qty: 18 RF: 6 magnesium oxide 500 mg capsule 500 mg PO BID RF: 0 glipizide 10 mg tablet 20 mg PO BID RF: 0 zolpidem 5 mg tablet 5 mg PO QHS RF: 0 furosemide 20 mg tablet 20 mg PO DAILY RF: 0 cholecalciferol (vitamin D3) 1,250 mcg (50,000 unit) capsule 50,000 unit PO TUFR RF: 0 ferrous sulfate 325 mg (65 mg iron) tablet 325 mg PO DAILY RF: 0 multivitamin Tablet 1 tab PO DAILY RF: 0 budesonide-formoterol [Symbicort] 160-4.5 mcg/actuation HFA aerosol inhaler 2 puff inhalation BID Qty: 1 RF: 3 lisinopril 40 MG tablet 40 mg PO DAILY RF: 0 esomeprazole magnesium 40 mg capsule,delayed release(DR/EC) 40 mg PO BID RF: 0 metformin 1,000 MG tablet 1,000 mg PO BIDCM RF: 0 duloxetine 60 MG capsule 60 mg PO QHS RF: 0 pramipexole 1.5 mg tablet 1.5 mg PO QHS RF: 0 diltiazem HCl 180 mg capsule,extended release 24hr 180 mg PO QHS RF: 0 metoprolol succinate 100 mg tablet extended release 24 hr 100 mg PO DAILY RF: 0 atorvastatin 40 mg Tablet 40 mg PO QHS 30 Days Qty: 30 RF: 0 Discontinued insulin degludec 100 unit/mL (3 mL) insulin pen 40 unit SC BID RF: 0 Referrals / Follow Up: Kate Spencer DO [Primary Care Provider] - Within 1 Week Disposition Disposition (needs filled in before D/C Order can be placed): Home, Self Care
--- NOTE | 2021-08-30 14:24 | DS.PCM_ITS ---
Providers Date of Admission: 08/29/21 Date of Discharge: 08/30/21 Primary Care Physician: Dr. Kate Spencer DO Reason For Visit: COVID INFECTION Diagnosis Discharge Diagnosis (1) Acute on chronic respiratory failure with hypoxemia: Status: Chronic Code(s): J96.21 - Acute and chronic respiratory failure with hypoxia (2) COVID-19: Status: Acute Code(s): U07.1 - COVID-19 Medications at Discharge Home Medications lisinopril 40 mg PO DAILY 06/08/14 duloxetine 60 mg PO QHS 04/08/18 metformin 1,000 mg PO BIDCM 04/08/18 esomeprazole magnesium 40 mg capsule,delayed release 40 mg PO BID cap 03/06/20 magnesium oxide 500 mg capsule 500 mg PO BID 06/13/20 albuterol sulfate 90 mcg/actuation aerosol inhaler 2 inh INHALATION Q4H PRN PRN #18 gm 08/03/20 cholecalciferol (vitamin D3) 1,250 mcg (50,000 unit) capsule 50,000 unit PO TUFR cap 09/05/20 furosemide 20 mg tablet 20 mg PO DAILY tab 09/05/20 glipizide 10 mg tablet 20 mg PO BID tab 09/05/20 zolpidem 5 mg tablet 5 mg PO QHS tab 09/05/20 diltiazem HCl 180 mg PO QHS 10/18/20 metoprolol succinate 100 mg PO DAILY 10/18/20 pramipexole 1.5 mg PO QHS 10/18/20 atorvastatin 40 mg PO QHS 30 Days #30 tab 10/19/20 budesonide-formoterol HFA 160 mcg-4.5 mcg/actuation aerosol inhaler 2 puff INHALATION BID #1 ea 04/22/21 ferrous sulfate 325 mg (65 mg iron) tablet 325 mg PO DAILY tab 07/16/21 multivitamin 1 tab PO DAILY 07/16/21 dexamethasone 6 mg PO DAILY 8 Days #8 tab 08/30/21 guaifenesin [Mucus Relief ER] 1,200 mg PO BID 7 Days #14 tab 08/30/21 insulin glargine-yfgn 60 unit SUBCUT BIDCM 30 Days #36 ml 08/30/21 Hospital Course Operations None Procedures None Summary of Care Provided Minutes Spent on Discharge: 35 Hospital Course: 61-year-old with past medical history of reactive airway disease, obstructive sleep apnea, hypertension, chronic diastolic CHF who has been vaccinated and boosted comes in with nausea vomiting diarrhea as well as shortness of breath or chest discomfort and productive cough. Patient stated that she lives with her daughter and her boyfriend. Her boyfriend came back from work with COVID-19 symptoms. Patient initially tested negative on the home COVID test. She reported subjective fever and chills. Patient was found to be positive for acute COVID-19 infection. She usually is on 2 L of oxygen as needed at home. She required oxygen [id number]. Patient was admitted to PCU and managed on dexamethasone and remdesivir. Laney ent continued to improve. She was off oxygen. She however needed oxygen on exertion. She needed 2 L oxygen on exertion. Patient completed 2 days of dexamethasone. She was discharged on 8 more days to make a total of 10 days. She knows to follow-up with her primary care doctor within 1 week. She was encouraged to continue to use incentive spirometer. Physical Exam Narrative Physical exam: General: Alert, Oriented x3, Cooperative, on 2 L of oxygen HEENT: Atraumatic Oral: Moist Mucosa Neck: Supple Lungs: Diminished to auscultation Cardiovascular: HS I+II, regular, no murmurs Abdomen: Bowel Sounds Present, Soft, Non Tender Extremities: No edema Skin: No rashes, No breakdown Neurological: Grossly intact Psych/Mental Status: Appropriate Weight / BMI Weight Weight: 122.8 kg Body Mass Index (BMI) 46.4 ABG / Lab / Microbiology Data Result Diagrams: 08/29/21 05:51 08/29/21 05:51 Laboratory: Laboratory Results - last 24 hr 08/29/21 16:22: POC Glucose 310 H 08/29/21 20:49: POC Glucose 344 H 08/30/21 08:48: POC Glucose 189 H 08/30/21 11:17: POC Glucose 278 H Microbiology: Microbiology 08/28/21 22:35 Nasal Secretion SARS-CoV-2 & FLU Antigen (Rapid) - Final SARS-CoV-2 (COVID 19) D/C Instructions Discharge Diet: 1800 Calorie Control Diet and 2000 mg Sodium Diet Meaningful Use Info Meaningful Use Diagnoses (Choose all that apply): None applicable Discharge Plan Admission Admit Date/Time: 08/29/21 01:20 Primary Reason for Your Visit: Acute COVID-19 infection Attending Provider: Rachael Mortensen Primary Care Provider: Kate Spencer Instructions Additional Instructions / Restrictions: You are being discharged with oxygen. Continue to use your oxygen with exertion. Continue to use your incentive spirometer. Continue to remain active and eat healthy. Let your doctor know if you develop fever >101.3F or have progressive worsening shortness of breath. Follow-up with your primary care doctor to have your continued oxygen use reevaluated. Be careful of going near open flames whilst on oxygen. Complete your Decadron as prescribed. Continue to use your inhaler as needed for shortness of breath. Continue to quarantine for 10 days total from the start of your symptoms. Discharge Orders/Prescriptions Prescriptions: New insulin glargine-yfgn 100 unit/mL (3 mL) Insulin Pen 60 unit subcut BIDCM 30 Days Qty: 36 RF: 0 Mucus Relief ER 1,200 mg Tablet Extended Release 12hr 1,200 mg PO BID 7 Days Qty: 14 RF: 0 dexamethasone 6 mg tablet 6 mg PO DAILY 8 Days Qty: 8 RF: 0 Continued albuterol sulfate 90 mcg/actuation HFA aerosol inhaler 2 inh INHALATION Q4H PRN PRN (Reason: Sob &/Or Wheezing) Qty: 18 RF: 6 magnesium oxide 500 mg capsule 500 mg PO BID RF: 0 glipizide 10 mg tablet 20 mg PO BID RF: 0 zolpidem 5 mg tablet 5 mg PO QHS RF: 0 furosemide 20 mg tablet 20 mg PO DAILY RF: 0 cholecalciferol (vitamin D3) 1,250 mcg (50,000 unit) capsule 50,000 unit PO TUFR RF: 0 ferrous sulfate 325 mg (65 mg iron) tablet 325 mg PO DAILY RF: 0 multivitamin Tablet 1 tab PO DAILY RF: 0 budesonide-formoterol [Symbicort] 160-4.5 mcg/actuation HFA aerosol inhaler 2 puff inhalation BID Qty: 1 RF: 3 lisinopril 40 MG tablet 40 mg PO DAILY RF: 0 esomeprazole magnesium 40 mg capsule,delayed release(DR/EC) 40 mg PO BID RF: 0 metformin 1,000 MG tablet 1,000 mg PO BIDCM RF: 0 duloxetine 60 MG capsule 60 mg PO QHS RF: 0 pramipexole 1.5 mg tablet 1.5 mg PO QHS RF: 0 diltiazem HCl 180 mg capsule,extended release 24hr 180 mg PO QHS RF: 0 metoprolol succinate 100 mg tablet extended release 24 hr 100 mg PO DAILY RF: 0 atorvastatin 40 mg Tablet 40 mg PO QHS 30 Days Qty: 30 RF: 0 Discontinued insulin degludec 100 unit/mL (3 mL) insulin pen 40 unit SC BID RF: 0 Referrals / Follow Up: Kate Spencer DO [Primary Care Provider] - Within 1 Week Disposition Disposition (needs filled in before D/C Order can be placed): Home, Self Care Charges/Coding Visit Charges Inpatient E&M: 28208 Disch Hosp
== END 2021-08-30 16:57 | disposition home or self-care (01) | DRG 137 ==
LOC: ED 22:32 → PCU 08-29 01:46
PROVIDERS: Admitting Provider Hospitalist; Emergency Provider Emergency Medicine; PCP Family Medicine; Visit Provider Internal Medicine
DX: U07.1 COVID-19 (principal); I13.0 Hypertensive heart and chronic kidney disease with heart failure and stage 1 through stage 4 chronic kidney disease, or unspecified chronic kidney disease; I50.32 Chronic diastolic (congestive) heart failure; E11.21 Type 2 diabetes mellitus with diabetic nephropathy; E11.22 Type 2 diabetes mellitus with diabetic chronic kidney disease; E11.65 Type 2 diabetes mellitus with hyperglycemia; J96.21 Acute and chronic respiratory failure with hypoxia; E66.01 Morbid (severe) obesity due to excess calories; Z68.42 Body mass index [BMI] 45.0-49.9, adult; Z79.4 Long term (current) use of insulin; N18.31 Chronic kidney disease, stage 3a; G47.33 Obstructive sleep apnea (adult) (pediatric); E78.5 Hyperlipidemia, unspecified; R00.0 Tachycardia, unspecified; Z99.81 Dependence on supplemental oxygen; Z79.84 Long term (current) use of oral hypoglycemic drugs; Z87.891 Personal history of nicotine dependence; Z79.899 Other long term (current) drug therapy
CPT/HCPCS: 36415; 71275; 80048; 80053; 80076; 82962; 83605; 83690; 83735; 83880; 84484; 85025; 85610; 85730; 87428; 93005; 94002; 94003; 94762; 96372; 96374; 96375; 96376; 99218; 99285; J7030; J7050; Q9967; A4216; G0378; J0248; J2405

== ENCOUNTER → 2021-10-14 | Outpatient (CLI) | payer MEDICAID, SELFPAY ==
[2021-10-14 13:11] LABS: ALB/GLOB Ratio 0.9 RATIO (0.9-2.4); AST(SGOT) 28 U/L (15-37); Alanine Aminotransfer ALT/SGPT 29 U/L (13-56); Albumin, Serum 3.2 g/dL (3.2-5.0); Alkaline Phosphatase 90 U/L (45-117); Anion Gap 5 (5-15); BUN 18 mg/dL (7-18); BUN/Creat Ratio 16.4 RATIO (10-20); Calcium,Total 9.5 mg/dL (8.5-10.1); Chloride 104 mmol/L (98-107); EST Glomerular Filtration Rate 53 mL/min (>60); Est Glom Filt Rate - Afr Amer 64 mL/min (>60); Globulin 3.7 g/dL (2.2-4.2); Glucose 148 mg/dL (74-106); Potassium 3.8 mmol/L (3.5-5.1); Protein, Total 6.9 g/dL (6.4-8.2); Sodium Level 141 mmol/L (136-145)
== END | disposition home or self-care (01) ==
LOC: LAB 11:45
PROVIDERS: PCP Family Medicine; Visit Provider Family Medicine
DX: E11.9 Type 2 diabetes mellitus without complications (principal); Z51.81 Encounter for therapeutic drug level monitoring
CPT/HCPCS: 36415; 80053

== ENCOUNTER → 2021-10-21 | Outpatient (CLI) | payer MEDICAID, SELFPAY ==
[2021-10-21 13:31] LABS: Anion Gap 7 (5-15); BUN 22 mg/dL (7-18); BUN/Creat Ratio 18.2 RATIO (10-20); Calcium,Total 9.8 mg/dL (8.5-10.1); Chloride 105 mmol/L (98-107); Creatinine, Serum 1.21 mg/dL (0.55-1.02); EST Glomerular Filtration Rate 48 mL/min (>60); Est Glom Filt Rate - Afr Amer 58 mL/min (>60); Glucose 185 mg/dL (74-106); Sodium Level 141 mmol/L (136-145)
== END | disposition home or self-care (01) ==
LOC: LAB 11:31
PROVIDERS: PCP Family Medicine; Referring Provider Family Medicine; Visit Provider Family Medicine
DX: I10 Essential (primary) hypertension (principal)
CPT/HCPCS: 36415; 80048

== ENCOUNTER → 2021-11-01 | Outpatient (CLI) | payer MEDICAID, SELFPAY ==
--- NOTE | 2021-11-01 12:46 | ADUUE_ITS ---
Reason For Study: Pain in arm RIGHT Radial artery, 0.17 x 0.17 cm, 72.5 cm/sec. Ulnar artery, 0.16 x 0.16 cm, 84.2 cm/sec. Brachial artery, 0.33 x 0.34 cm, 92.1 cm/sec. Radial, Ulnar, Brachial, Cephalic and Basilic veins are compressible. Area of concern: No abnormalities noted. No occlusion or pseudoaneurysm noted. Preliminary report to Luzmaria. VL/US Art Duplex Unilat UP Extrem Interpretation Summary Right radial and ulnar arteries are small in diameter however have normal triph asic flow. Normal diameter and flow right brachial artery Patent and compressible right radial, ulnar, brachial, cephalic, and basilic ve ins no evidence for obstruction or pseudoaneurysm identified Ordering Physician: Angelica Dutta Referring Physician: Kate Spencer Performed By: Taylor Qureshi RVT
== END | disposition home or self-care (01) ==
PROVIDERS: PCP Family Medicine; Referring Provider Physician Assistant Medical; Visit Provider Physician Assistant Medical
DX: M79.601 Pain in right arm (principal)
CPT/HCPCS: 93931

== ENCOUNTER → 2021-11-13 | Outpatient (CLI) | payer MEDICAID, SELFPAY ==
--- NOTE | 2021-11-13 09:21 | VDUE_ITS ---
Reason For Study: Pain Right Proximal Left Proximal Right subclavian vein is spontaneous, widely Left jugular vein is spontaneous, widely patent, phasic, with no intraluminal patent, phasic, with no intraluminal echogenicity noted. echogenicity noted. Left subclavian vein is spontaneous, widely patent, phasic, with no intraluminal echogenicity noted. Left Arm Left axillary vein is spontaneous, patent, phasic, competent, compressible and demonstrates augmentation. Left brachial vein is compressible. Left cephalic vein is compressible. Left basilic vein is compressible. Left Lower Arm Left radial vein is compressible. Left ulnar vein is compressible. VL/Venous Duplex US, Unilateral Interpretation Summary Deep veins of the left upper extremity are patent and compressible segmentally. There is no evidence of deep vein thrombosis. Ordering Physician: Kate Spencer Referring Physician: Kate Spencer Performed By: Suma Encarnacion, JACKELIN, RVT ?
--- NOTE | 2021-11-14 10:01 | PFT ---
INTRODUCTION: The patient is a 61-year-old female that presents for pulmonary function studies secondary to a diagnosis of dyspnea. Respiratory therapy reported good patient effort. Bronchodilators were used during testing. INTERPRETATION: Forced expiration spirometry demonstrates no evidence of a large airways obstructive ventilatory defect. There was a significant response to aerosolized bronchodilators, based upon change noted in FVC. Spirograms are of good quality and plateau normally. Body plethysmography was performed and reveals lung volumes to be within normal limits. Diffusing capacity by single breath CO is reduced at 58% of predicted. IMPRESSION: Moderate reduction in diffusing capacity with significant bronchodilator response.
== END | disposition home or self-care (01) ==
PROVIDERS: PCP Family Medicine; Referring Provider Internal Medicine Critical Care Medicine; Visit Provider Family Medicine
DX: M79.602 Pain in left arm (principal)
CPT/HCPCS: 93971; 94060; 94726; 94729

== ENCOUNTER → 2021-11-14 | Outpatient (CLI) | payer MEDICAID, SELFPAY ==
[2021-11-14 11:33] VITALS: PULSE 100; PULSE 105; PULSE 106; PULSE 108; PULSE 89; PULSE 90; O2SAT 93; O2SAT 94; O2SAT 95; O2SAT 96
--- NOTE | 2021-11-15 09:51 | PCM.PSN.6M ---
PSN 6 Minute Walk Test 6 Minute Walk Test 6 Minute Walk Test: 6 Minute Walk Test PSN:6-Minute Walk Test Start: 11/14/21 11:33 Freq: Status: Active Protocol: RESP.6MINW Document 11/14/21 11:33 MARYJANE (Rec: 11/14/21 11:42 MARYJANE [id number]) 6 Minute Walk Test Date Performed 11/14/21 Time Performed 11:15 Height 5 ft 4 in Weight: 270 lb Weight in Pounds 270.[address]: Roberto Crouch Assistive device used: None Pre-test Oxygen Delivery Method Room Air Pulse Ox (%) 96 Pulse Rate (60-100 beats/min) 89 Dyspnea Lencho Scale (0-10) 0 Exertion Lencho Scale (6-20) 6 1st minute Oxygen Delivery Method Room Air Pulse Ox (%) 94 Pulse Rate (60-100 beats/min) 100 2nd minute Oxygen Delivery Method Room Air Pulse Ox (%) 93 Pulse Rate (60-100 beats/min) 105 H 3rd minute Oxygen Delivery Method Room Air Pulse Ox (%) 94 Pulse Rate (60-100 beats/min) 106 H 4th minute Oxygen Delivery Method Room Air Pulse Ox (%) 93 Pulse Rate (60-100 beats/min) 106 H 5th minute Oxygen Delivery Method Room Air Pulse Ox (%) 93 Pulse Rate (60-100 beats/min) 108 H 6th minute Oxygen Delivery Method Room Air Pulse Ox (%) 93 Pulse Rate (60-100 beats/min) 108 H Dyspnea Lencho Scale (0-10) 3 Exertion Lencho Scale (6-20) 14 Post-test Oxygen Delivery Method Room Air Pulse Ox (%) 95 Pulse Rate (60-100 beats/min) 90 Full Laps Walked 13 Partial Lap, Number of Tiles Walked 5 Total Distance Walked (ft) 772 Interpretation Interpretation: The patient ambulated 772 feet over the course of 6 minutes beginning on room air without assistive devices. Pretesting oxygen saturation was noted to be 96% on room air. With ambulation, the maicol oxygen saturation was 93%. There was no significant exertional oxygen desaturation. Recommendations Recommendations: There is no indication for the use of supplemental oxygen at this time.
== END | disposition home or self-care (01) ==
LOC: PSN 11:12
PROVIDERS: PCP Family Medicine; Referring Provider Internal Medicine Critical Care Medicine; Visit Provider Internal Medicine Critical Care Medicine
DX: R06.00 Dyspnea, unspecified (principal)
CPT/HCPCS: 94618

== ENCOUNTER → 2021-12-19 | Outpatient (CLI) | payer MEDICAID, SELFPAY ==
[2021-12-19 12:02] LABS: Microalbumin,Random Urine < 5.0 mg/L (NO RANGE EST.)
[2021-12-19 12:15] LABS: ALB/GLOB Ratio 0.8 RATIO (0.9-2.4); AST(SGOT) 21 U/L (15-37); Alanine Aminotransfer ALT/SGPT 28 U/L (13-56); Albumin, Serum 3.2 g/dL (3.2-5.0); Alkaline Phosphatase 100 U/L (45-117); Anion Gap 6 (5-15); BUN 27 mg/dL (7-18); BUN/Creat Ratio 21.8 RATIO (10-20); Chloride 104 mmol/L (98-107); Cholesterol 134 mg/dL (200); Creatinine, Serum 1.24 mg/dL (0.55-1.02); EST Glomerular Filtration Rate 46 mL/min (>60); Est Glom Filt Rate - Afr Amer 56 mL/min (>60); Glucose 229 mg/dL (74-106); High Density Lipoprotein 39 mg/dL; Potassium 4.9 mmol/L (3.5-5.1); Protein, Total 7.2 g/dL (6.4-8.2); Sodium Level 141 mmol/L (136-145); Thyroid Stim Hormone (TSH) 2.01 uIU/mL (0.358-3.74); Triglycerides 229 mg/dL; Very Low Density Lipoprotein 46 mg/dL (5-40)
[2021-12-20 11:21] LABS: Thyroid Peroxidase AB 10 IU/mL (0-34)
== END | disposition home or self-care (01) ==
LOC: LAB 10:01
PROVIDERS: PCP Family Medicine; Visit Provider Internal Medicine Endocrinology, Diabetes & Metabolism
DX: E11.22 Type 2 diabetes mellitus with diabetic chronic kidney disease (principal); N18.30 Chronic kidney disease, stage 3 unspecified; I12.9 Hypertensive chronic kidney disease with stage 1 through stage 4 chronic kidney disease, or unspecified chronic kidney disease; E78.5 Hyperlipidemia, unspecified; E55.9 Vitamin D deficiency, unspecified
CPT/HCPCS: 36415; 80053; 80061; 82043; 82306; 82570; 84443; 86376

== ENCOUNTER → 2021-12-27 | Outpatient (CLI) | payer MEDICAID, SELFPAY ==
--- NOTE | 2021-12-27 16:13 | US_ITS ---
STUDY: RENAL ULTRASOUND - COMPLETE REASON FOR EXAM: Female, 61 years old. CKD STAGE 3A TECHNIQUE: Ultrasound evaluation of the kidneys was performed with real-time and static porras-scale imaging. COMPARISON: None. FINDINGS: RIGHT KIDNEY: Normal location of the right kidney, which is normal in size. The right kidney measures 10.7 cm. There is a normal cortex of the right kidney. The renal cortex measures 1.4 cm. There is no right renal mass or cyst. There are no right renal calculi. There is no right hydronephrosis. DISTAL RIGHT URETER: There is non-visualization of the distal right ureter. There is no demonstrated right ureterovesical junction calculus. There is a visualized right ureteral jet. LEFT KIDNEY: Normal location of the left kidney, which is normal in size. The left kidney measures 11.7 cm. There is a normal cortex of the left kidney. The renal cortex measures 1.6 cm. 3 cm isoechoic mass within the midsection the left kidney and correlation with renal mass protocol CT or MRI is recommended. There are no left renal calculi. There is no left hydronephrosis. DISTAL LEFT URETER: There is non-visualization of the distal left ureter. There is no demonstrated left ureterovesical junction calculus. There is a visualized left ureteral jet. BLADDER: The distended urinary bladder has a volume of 43 ml. The empty urinary bladder has a volume of ml. There is a normal wall thickness of the distended urinary bladder. There is no demonstrated mass within the urinary bladder. There are no demonstrated bladder calculi. US/Kidney and Bladder IMPRESSION: 1. No hydronephrosis to suggest obstruction. 2. 3 cm mass of the medial aspect of the midsection the left kidney and correlation with renal mass protocol CT or MRI is recommended. Electronically Signed: Galdino Archuleta MD at 22:38 EDT ,
== END | disposition home or self-care (01) ==
LOC: US 16:10
PROVIDERS: PCP Family Medicine; Referring Provider Family Medicine; Visit Provider Family Medicine
DX: E11.22 Type 2 diabetes mellitus with diabetic chronic kidney disease (principal); N18.31 Chronic kidney disease, stage 3a
CPT/HCPCS: 76770

== ENCOUNTER → 2022-01-08 | Outpatient (CLI) | payer MEDICAID, SELFPAY ==
--- NOTE | 2022-01-08 16:40 | CT_ITS ---
STUDY: CT ABDOMEN AND PELVIS WITH CONTRAST REASON FOR EXAM: Female, 61 years old. F/U ABNORMAL US L KIDNEY MASS. COMPARE TO US FROM 12/27/21. PRIOR CHOLECYSTECTOMY RADIATION DOSAGE (If Supplied By Facility): CTDIvol = ( 18.17 ) mGy, DLP = ( 1928.70 ) mGycm TECHNIQUE: Transaxial images were obtained from the dome of the diaphragm to the symphysis pubis without oral contrast. Oral and amp; IV Redi-CAT and amp; 100mL Isovue-300 was administered. Sagittal and coronal images were reconstructed. Individualized dose optimization techniques were used for this CT. COMPARISON: September 02, 2012 CT scan abdomen and pelvis, August 29, [address] chest, December 27, 2021 ultrasound kidneys. FINDINGS: The visualized lung bases are unremarkable. The visualized portions of the heart are within normal limits. The liver is enlarged similar to prior studies. There are surgical clips in the gallbladder fossa consistent with a prior cholecystectomy. Normal spleen. Normal pancreas. There is a solid small nodule within the right-sided adrenal gland measuring approximately 1.5 cm which was not definitively identified on the prior study September 02, 2012, stable since August 29, 2021 out of the field of view on the prior CT scans of the chest. Normal right kidney. Since the prior study September 02, 2012 there is interval development of a low attenuating partly cystic partly solid appearing structure within the right kidney that measures 3.4 x 2.4 x 2.9 cm. The venous phase image demonstrates a Hounsfield units of 18 within the low attenuating component and a slightly enhancing appearance of the possible nodular component. With delayed imaging the Hounsfield units are slightly decreased. Normal visualized stomach. Normal small intestine. There is moderate stool within the colon. The appendix is visualized and appears normal. There is minimal calcification of the aorta. Normal inferior vena cava. There are a few nonspecific subcentimeter retroperitoneal lymph nodes. There is no large visualized necrotic mass. Normal urinary bladder. The bladder is mostly decompressed there is minimal if any wall thickening. There is no hydronephrosis. This visualized atrophy of the uterus. Normal abdominal wall. There is visualized degenerative change within the thoracolumbar spine. The level of L4-L5 there is a broad disc bulge vacuum phenomenon and moderate neural foraminal narrowing bilaterally moderate central stenosis. CT/Abdomen/Pelvis WITH Contrast IMPRESSION: Atypical inhomogeneous mass left kidney, partly cystic partly solid versus volume averaging with the adjacent parenchyma within the left kidney measuring 3.4 x 2.4 x 2.9 cm. This is not visualized on the prior study September 02, 2012 allowing for the noncontrasted nature of that study. This is likely the mass described on the recent ultrasound of the left kidney. Recommend further evaluation with MRI with a renal mass protocol. In addition further evaluation is warranted of the solid new right adrenal mass not seen on prior studies measuring 1.4 cm which may represent the possibility of metastatic disease, adrenal carcinoma or potentially a newly visualized atypical adenoma. Status post cholecystectomy. Moderate constipation. Degenerative change of the thoracolumbar spine. Electronically Signed: Lady Henley MD at 4:42 EDT ,
== END | disposition home or self-care (01) ==
LOC: CT 16:38
PROVIDERS: PCP Family Medicine; Referring Provider Family Medicine; Visit Provider Family Medicine
DX: N28.89 Other specified disorders of kidney and ureter (principal)
CPT/HCPCS: 74177; Q9967

== ENCOUNTER → 2022-01-14 | Outpatient (CLI) | payer MEDICAID, SELFPAY ==
[2022-01-14 17:19] LABS: Absolute Lymphocyte Count 3.51 X10^3/uL (0.83-4.51); Absolute Neutrophil Count 10.4 X10^3/uL (2.0-7.7); Basophil# 0.09 X10^3/uL; Basophil% 0.6 % (0-1); Eosinophil# 0.51 X10^3/uL; Eosinophils% 3.2 % (0-5); Hematocrit 41.6 % (37-47); Hemoglobin 12.2 g/dL (12.0-15.0); Lymphocyte # 3.51 X10^3/ul (0.83-4.51); Lymphocyte % 22.2 % (19-41); Mean Corp Hgb Conc 29.3 g/dL (32-36); Mean Corpuscular Hgb 24.9 pg (27.0-32.0); Mean Corpuscular Volume 84.9 fL (81-99); Mean Platelet Vol. 10.6 fl (6.2-12.0); Monocyte# 1.09 X10^3/uL; Monocyte% 6.9 % (0-10); NRBC Flagged by Analyzer 0 % (0-5); Neutrophil # 10.39 X10^3/uL (2.7-7.7); Neutrophil % 65.7 % (47-70); Platelet Count 372 K/mm3 (150-450); RBC Distribution Width CV 15.2 % (11.6-14.6); RBC Distribution Width SD 46.5 fl (35.1-43.9); White Blood Count 15.8 K/mm3 (4.4-11.0)
[2022-01-14 17:24] LABS: International Normalized Ratio 0.9; Partial Thromboplast Time 25.4 Seconds (24.1-36.2); Prothrombin Time (Protime)PT. 11.7 SECONDS (11.7-14.9)
== END | disposition home or self-care (01) ==
PROVIDERS: PCP Family Medicine; Visit Provider Family Medicine
DX: Z76.89 Persons encountering health services in other specified circumstances (principal)
CPT/HCPCS: 36415; 85025; 85610; 85730

== ENCOUNTER → 2022-01-16 | Outpatient (CLI) | payer MEDICAID, SELFPAY ==
[2022-01-16] VITALS (10 sets, daily range): BP systolic 120–151; BP diastolic 39–75; PULSE 91–98; RESP 16–21; TEMP 36.2; O2SAT 94–98; BMI 46.3
--- NOTE | 2022-01-16 07:48 | CT_ITS ---
PROCEDURE: CT GUIDED PERCUTANEOUS KIDNEY BIOPSY. DATE: 01/16/2022. INDICATION: Female, 61 years old. Complex solid and cystic mass in the lower medial pole of the left kidney. PHYSICIAN: Simeon Osuna M.D. MEDICATIONS: 2 mg of VERSED and 50 mcg of FENTANYL intravenously. Conscious sedation was started at 9:48 AM and terminated at 10:13 AM. The patient was independently monitored by the department nurse. ACCESS SITE: Lower medial pole of the left kidney. NEEDLE: 18-gauge core biopsy needle SPECIMEN: 6 18-gauge cores EBL: None. COMPLICATIONS: None immediate. RADIATION DOSAGE (If Supplied By Facility): CTDIvol = ( 23 ) mGy, DLP = ( 739.8 ) mGycm. Individualized dose embolization techniques were utilized. The risks, benefits, and alternatives to the procedure and sedation were explained to the patient. The specific risk of hemorrhage requiring further treatment or intervention was detailed and accepted. Written informed consent was obtained. The patient was placed on the CT table in the prone position. Multiple axial images were obtained from the lung base through the caudal extent of the kidneys. An appropriate entry site was identified and a bella made on the skin. The skin overlying the [left ] posterior flank was prepped and draped in sterile fashion. 1% lidocaine was administered subcutaneously for local anesthesia. Initially, a 22 gauge needle was advanced and CT images confirmed good needle position. The 22 gauge needle was then exchanged for an 17 gauge introducer needle which was advanced. Repeat CT images confirmed good needle trajectory and tip position. The introducer needle was then advanced into the periphery of the inferior renal pole, and CT images were again obtained to confirm exact tip location. The inner stylet of the introducer needle was then removed and an 18 gauge coaxial needle was advanced thru the introducer needle and biopsy performed. A total of [ 6] passes were performed and the specimen collected was sent to Pathology for further evaluation. The needle was withdrawn. Hemostasis was achieved with manual compression and a sterile dressing was applied. Repeat CT images of the biopsy area was performed which demonstrated no gross bleeding or hematoma. The patient tolerated the procedure well without immediate complications. The patient was transported to the [floor/recovery area] in stable condition. CT/Biopsy/Inj or Needle Placement IMPRESSION: Successful CT guided percutaneous kidney biopsy. Conscious sedation protocol was followed. Electronically Signed: Simeon Osuna MD at 9:51 EDT ,
[2022-01-16] MEDS: Midazolam 2 MG/2 ML Syringe IV (08:47)
[2022-01-16] MEDS: Lidocaine 2% (10 ml mdv) 10 ML Vial INFILT (08:48)
[2022-01-16] MEDS: fentaNYL 100 MCG/2 ML Ampul IV (08:48)
--- NOTE | 2022-01-16 09:00 | FLU_PTH ---
PATIENT: LANA GODOY LOC: CT U#:[id number] AGE/SX: 61/F ROOM: RE01/16/[address]: Dr. Kate Spencer DO : 1960 BED: DIS: 01/16/2022 SPEC #: [id number] RECD: 01/16/22 09:15 STATUS: MARÍA ARIN #: [id number] ZEKE: 01/16/22 09:[address]: Kate Spencer DEPT: CYTOLOGY RECD BY: Evon Tucker Tissues: Kidney, NOS Procedures: Special Stain Group II Surgery Specimen Level IV Cytospin Fluid HEADER OPERATION: Left kidney PRE-OP DIAGNOSIS: Left renal mass TISSUE SUBMITTED: Left kidney 18-gauge x6 DIAGNOSIS CYTOLOGY Left kidney fluid, fine needle aspiration (cytospin and cell block): Negative for malignant cells. See comment. PAL:lalo 01/17/2022 COMMENT Please make reference to corresponding surgical specimen ([id number]), left kidney mass, CT-guided core biopsy with diagnosis of ?renal parenchymal tissue with mild interstitial chronic inflammation.? CYTOLOGY STUDY Slides are reviewed. CYTOLOGY GROSS Received is 1.5 ml of red cloudy fluid labeled with the patient's name and and designated per the requisition as left kidney. Submitted for cytology preparation including cell block. / lalo 01/16/2022 TC:5 CPT: 25363, 17872
--- NOTE | 2022-01-16 09:00 | KI_PTH ---
PATIENT: LANA GODOY LOC: CT U#:[id number] AGE/SX: 61/F ROOM: RE01/16/[address]: Dr. Kate Spencer DO : 1960 BED: DIS: 01/16/2022 SPEC #: [id number] RECD: 01/16/22 09:15 STATUS: MARÍA ARIN #: [id number] ZEKE: 01/16/22 09:[address]: Kate Spencer DEPT: SURGICAL PATHOLOGY RECD BY: Evon Tucker Tissues: Kidney, NOS Procedures: Surgery Specimen Level IV HEADER OPERATION: Left kidney, CT-guided core biopsy PRE-OP DIAGNOSIS: Left renal mass TISSUE SUBMITTED: Left kidney 18-gauge x6 MICROSCOPIC DIAGNOSIS Left kidney, CT-guided core biopsy: Renal parenchymal tissue with mild interstitial chronic inflammation. Negative for malignancy. See comment. PAL:lalo 01/17/2022 COMMENT Correlation with clinical, radiologic findings and appropriate follow up are necessary. Case has been reviewed in consultation with Dr. Frazier who concurs with the above diagnosis. IDC:AM MICROSCOPIC DESCRIPTION Slides are reviewed. GROSS DESCRIPTION Received is one container labeled with the patient's name and not further designated. The specimen consists of multiple irregular fragments of rodrigues soft tissue that in aggregate measure 0.4 x 0.1 x 0.1 cm. The specimen is totally submitted in one cassette. / SJ:lalo 01/16/2022 TC:3 CPT: 84496
== END | disposition home or self-care (01) ==
PROVIDERS: PCP Family Medicine; Referring Provider Family Medicine; Visit Provider Family Medicine
DX: N28.89 Other specified disorders of kidney and ureter (principal); E11.22 Type 2 diabetes mellitus with diabetic chronic kidney disease; Z68.42 Body mass index [BMI] 45.0-49.9, adult; Z79.4 Long term (current) use of insulin; N18.31 Chronic kidney disease, stage 3a; I12.9 Hypertensive chronic kidney disease with stage 1 through stage 4 chronic kidney disease, or unspecified chronic kidney disease; E55.9 Vitamin D deficiency, unspecified; E53.8 Deficiency of other specified B group vitamins; E66.9 Obesity, unspecified; Z79.84 Long term (current) use of oral hypoglycemic drugs; Z79.899 Other long term (current) drug therapy; Z76.89 Persons encountering health services in other specified circumstances; Z86.16 Personal history of COVID-19
CPT/HCPCS: 50200; 77012; 88108; 88305; 88313; 99156; J7050; A4216

== ENCOUNTER → 2022-02-11 | Outpatient (CLI) | payer MEDICAID, SELFPAY ==
--- NOTE | 2022-02-11 17:26 | MRI_ITS ---
STUDY: MRI ABDOMEN WITH AND WITHOUT CONTRAST REASON FOR EXAM: Female, 61 years old. ADRENAL MASS, F/U ABNORMAL CT TECHNIQUE: Standardized fat and water weighted pulse sequences were obtained in all 3 orthogonal planes post contrast administration. IV 25ml Clariscan was administered for the contrast portion of the examination. COMPARISON: None. FINDINGS: The visualized lung bases are unremarkable. The visualized portions of the heart are within normal limits. Normal liver. There are surgical clips in the gallbladder fossa consistent with a prior cholecystectomy. Normal spleen. Normal pancreas. There is a 2 cm T1 isointense/T2 isointense nodule in the right adrenal gland. No evidence of signal dropout on out of phase imaging compared to in phase imaging. No evidence of signal dropout on fat saturation images. No definite enhancement. Normal right kidney. In the left midpole there is a 2.6 x 2.4 cm heterogeneously T1 hypointense/T2 hyperintense lesion. It enhances on postcontrast images. Normal visualized stomach. Normal small intestine. Normal colon. There is diffuse atherosclerotic calcification of the abdominal aorta, without a demonstrated aneurysm. Normal inferior vena cava. Normal retroperitoneum. Normal abdominal wall. There are diffuse degenerative changes of the visualized lumbar spine. MRI/MRI Abd WITH and W/O Contrast IMPRESSION: Findings concerning for 2.6 cm renal cell carcinoma in the left mid renal pole. 2 cm nodule in the right adrenal gland without fat or definite enhancement remains indeterminate. Cannot rule out metastatic disease. Recommend 3-6 month follow-up CT to assess for interval growth. Electronically Signed: Tal Garsia MD at 21:48 EDT ,
[2022-02-11 17:55] LABS: EGFR FINGERSTICK > 60.0000 mL/min (>60)
== END | disposition home or self-care (01) ==
LOC: MRI 16:58
PROVIDERS: PCP Family Medicine; Referring Provider Family Medicine; Visit Provider Family Medicine
DX: D44.10 Neoplasm of uncertain behavior of unspecified adrenal gland (principal)
CPT/HCPCS: 74183; A9575; A4216

== ENCOUNTER → 2022-03-08 | Outpatient (CLI) | payer MEDICAID, SELFPAY ==
[2022-03-08 09:00] LABS: Anion Gap 7 (5-15); BUN 23 mg/dL (7-18); BUN/Creat Ratio 16.8 RATIO (10-20); Calcium,Total 9.7 mg/dL (8.5-10.1); Chloride 102 mmol/L (98-107); Creatinine, Serum 1.37 mg/dL (0.55-1.02); EST Glomerular Filtration Rate 41 mL/min (>60); Est Glom Filt Rate - Afr Amer 50 mL/min (>60); Glucose 153 mg/dL (74-106); Potassium 4.3 mmol/L (3.5-5.1); Sodium Level 140 mmol/L (136-145)
[2022-03-14 15:04] LABS: Aldosterone, Serum 4.3 ng/dL (0.0-30.0)
== END | disposition home or self-care (01) ==
LOC: LAB 07:48
PROVIDERS: PCP Family Medicine
DX: E27.8 Other specified disorders of adrenal gland (principal)
CPT/HCPCS: 36415; 80048; 82088; 82533

== ENCOUNTER → 2022-03-26 | Outpatient (CLI) | payer MEDICAID, SELFPAY | END | disposition home or self-care (01) | PROVIDERS: PCP Family Medicine | DX: E27.8 Other specified disorders of adrenal gland (principal) ==

== ENCOUNTER 2022-04-04 13:38 | Emergency (ER) | payer MEDICAID, SELFPAY ==
[2022-04-04 13:39] VITALS: BP 145/79; PULSE 100; RESP 18; TEMP 36.1; O2SAT 95; BMI 46.7
--- NOTE | 2022-04-04 13:50 | CT_ITS ---
STUDY: CT ABDOMEN AND PELVIS WITH CONTRAST REASON FOR EXAM: Female, 61 years old. Post operative left flank pain. Prior left renal biopsy and cryoablation. RADIATION DOSAGE (If Supplied By Facility): CTDIvol = ( 19.44 ) mGy, DLP = ( 1930.02 ) mGycm TECHNIQUE: Transaxial images were obtained from the dome of the diaphragm to the symphysis pubis without oral contrast. IV 100mL Isovue-300 was administered. Sagittal and coronal images were reconstructed. Individualized dose optimization techniques were used for this CT. COMPARISON: Comparison is made with prior examination dated 01/08/2022. FINDINGS: The visualized lung bases are unremarkable. The visualized portions of the heart are within normal limits. Normal liver. There are surgical clips in the gallbladder fossa consistent with a prior cholecystectomy. Normal spleen. Normal pancreas. Normal bilateral adrenal glands. Normal right kidney. There now is evidence of a 5.9 cm x 3.8 cm x 6.6 cm hypodense abnormality involving the medial portion of the mid and lower pole of the left kidney. This has increased in size as compared to prior examination. There is decreased enhancement at that level. This may represent a focal area of either inflammation or possible infarction. There is evidence of left medial perinephric stranding. Normal visualized stomach. Normal small intestine. Normal colon. The appendix is visualized and appears normal. There is scattered atherosclerotic calcification of the abdominal aorta, without a demonstrated aneurysm. Normal inferior vena cava. Normal retroperitoneum. Normal urinary bladder. Normal abdominal wall. There are mild degenerative changes of the visualized lumbar spine. CT/Abdomen/Pelvis W IV Cont ONLY IMPRESSION: 5.9 cm x 3.8 cm x 6.7 some hypodense abnormality involving the medial portion of the mid to lower pole of the left kidney with perinephric stranding. This may represent either focal nephritis versus infarction. There is decreased attenuation at that level. Status post cholecystectomy. Electronically Signed: Simeon Osuna MD at 15:29 EST ,
--- NOTE | 2022-04-04 13:52 | ED.VIS.BACK ---
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 She states they inserted 4 needles into the area and discharged her home. She has had a constant pain in the operative site since the surgery but in the past couple days is gotten worse and now Tylenol is not helping out. She states that she has not been to see her doctor for 6 months. She did call them and they recommended that she go to the emergency department in [place] yesterday so she came here to [place]. She denies any fevers. She states she had 2 bowel movements today. She notes that she had some blood in her urine after the surgery for about a week and then that resolved. She denies any rash or bruising to the area. She denies any radicular component to the pain. 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 Type 2 diabetes mellitus Viral syndrome Home Medications lisinopril 40 mg tablet 40 mg PO DAILY Check with primary doctor 06/08/14 [History Last Taken 01/16/22 07:00] duloxetine 60 mg capsule,delayed release 60 mg PO QHS sleep 04/08/18 [History Last Taken 01/16/22 07:00] metformin 1,000 mg tablet 1,000 mg PO BIDCM DIABETES 04/08/18 [History Last Taken 01/15/22 20:00] esomeprazole magnesium 40 mg capsule,delayed release 40 mg PO BID GERD 03/06/20 [History Last Taken 01/15/22 08:00] magnesium oxide 500 mg capsule 500 mg PO BID supplement 06/13/20 [History Last Taken 01/15/22 08:00] albuterol sulfate 90 mcg/actuation aerosol inhaler 2 inh inhalation Q4H PRN PRN Sob &/Or Wheezing #18 grams 08/03/20 [Rx Last Taken 10/18/20] cholecalciferol (vitamin D3) 1,250 mcg (50,000 unit) capsule 50,000 unit PO TUFR supplement 09/05/20 [History Last Taken 10/16/20] furosemide 20 mg tablet 20 mg PO DAILY diuretic 09/05/20 [History Last Taken 01/15/22 0800] glipizide 10 mg tablet 20 mg PO BID diabetes 09/05/20 [History Last Taken 01/15/22 20:00] zolpidem 5 mg tablet 5 mg PO QHS sleep 09/05/20 [History Last Taken 01/15/22 20:00] diltiazem HCl 180 mg capsule,extended release 24 hr 180 mg PO QHS heart 10/18/20 [History Last Taken 01/16/22 07:00] metoprolol succinate 100 mg tablet,extended release 24 hr 100 mg PO DAILY bp 10/18/20 [History Last Taken 01/16/22 07:00] pramipexole 1.5 mg tablet 1.5 mg PO QHS restless legs 10/18/20 [History Last Taken 01/15/22 20:00] budesonide-formoterol HFA 160 mcg-4.5 mcg/actuation aerosol inhaler (Symbicort) 2 puff inhalation BID #1 ea 04/22/21 [Rx Last Taken Unknown] ferrous sulfate 325 mg (65 mg iron) tablet 325 mg PO DAILY 07/16/21 [History Last Taken 01/15/22 08:00] multivitamin 1 tab PO DAILY 07/16/21 [History Last Taken Unknown] atorvastatin 40 mg tablet 40 mg PO DAILY 10/22/21 [History Last Taken 01/15/22 08:00] cholecalciferol (vitamin D3) 125 mcg (5,000 unit) capsule 125 mcg PO DAILY 12/19/21 [History Last Taken 01/15/22 08:00] dapagliflozin 10 mg tablet (Farxiga) 10 mg PO DAILY #30 tabs 12/19/21 [Rx Last Taken Unknown] insulin aspart U-100 100 unit/mL (3 mL) subcutaneous pen (Novolog Flexpen U-100 Insulin aspart) 30 unit (0.3 mL) subcut TID #30 mL 12/19/21 [Rx Last Taken Unknown] insulin degludec 200 unit/mL (3 mL) subcutaneous pen (Tresiba FlexTouch U-200 insulin) 80 unit (0.4 mL) subcut DAILY #12 mL 12/19/21 [Rx Last Taken Unknown] pen needle, diabetic 32 gauge x 5/32 (BD Ultra-Fine [place] Pen Needle) #120 ea 12/19/21 [Rx Last Taken Unknown] cyclobenzaprine 5 mg tablet tablet PO 02/03/22 [History Last Taken Unknown] ergocalciferol (vitamin D2) 1,250 mcg (50,000 unit) capsule (Vitamin D2) 50,000 unit PO 02/03/22 [History Last Taken Unknown] fluticasone propionate 115 mcg-salmeterol 21 mcg/actuation HFA inhaler (Advair HFA) 2 inh inhalation 02/03/22 [History Last Taken Unknown] tirzepatide 5 mg/0.5 mL subcutaneous pen injector (Mounjaro) 5 mg (0.5 mL) subcut QWEEK #2 mL 03/13/22 [Rx Last Taken Unknown] oxycodone 10 mg tablet 10 mg PO TID PRN pain 3 days #12 tabs 04/04/22 [Rx Last Taken Unknown] Allergy/AdvReac Type Severity Reaction Status Date / Time Penicillins Allergy Hives Verified 04/04/22 13:42 Family History Father Cancer bladder cancer Hypertension Mother Diabetes Hypertension Sister Diabetes Surgical History History of carpal tunnel release History of cholecystectomy History of left heart catheterization (07/25/21) History of tubal ligation Social History Smoking Status: Former smoker how long ago did patient quit smokin alcohol intake: never substance use type: does not use caffeine: Yes Type: coffee Number of servings: 5 ROS ROS ED Constitutional Constitutional ED: Denies chills or weight loss Eyes Eyes: Denies change in vision or diplopia ENT ENT ED: Denies ear pain, rhinorrhea or sore throat Cardiovascular Cardiovascular: Denies chest pain, orthopnea, palpitations or racing heartbeat Respiratory/Chest Respiratory/Chest: Denies cough, dyspnea or orthopnea Gastrointestinal Gastrointestinal: Denies abdominal pain, diarrhea, nausea or vomiting Genitourinary Genitourinary ED: Reports hematuria; Denies dysuria or urinary frequency Musculoskeletal Musculoskeletal: Reports back pain; Denies arthralgias, myalgias or neck pain Integumentary Denies abscess or rash Neurologic Neurologic: Denies headache(s), paresthesias or weakness Psychiatric Psychiatric: Denies anxiety, depression, suicidal ideation or suicidal thoughts Endocrine Endocrinology: Denies polydipsia, polyphagia or polyuria Allergic/Immunologic Allergic/Immunologic ED: Denies mouth swelling, tongue swelling or urticaria EXAM Physical Exam Const Vital Signs: 04/04/22 13:39 04/04/22 16:14 Temperature 96.9 F L Temperature Source Temporal Pulse Rate 100 Respiratory Rate 18 16 Blood Pressure 145/79 H Blood Pressure Mean 101 Pulse Ox 95 Oxygen Delivery Method Room Air Positive well nourished, well developed and obese General Appearance ED: well developed Nutritional Appearance: obese HEENT Reports normocephalic, head/scalp atraumatic and moist mucous membranes Eyes PERRL and EOMs intact bilaterally Neck no lymphadenopathy, supple and no JVD Resp normal respiratory effort and clear to auscultation bilaterally Cardio regular rate, regular rhythm and no murmurs GI normal to inspection, nondistended, normoactive bowel sounds and non-tender Palpation: soft Back/Spine Back/Spine Narrative: Painful range of motion she has tenderness in the left CVA area. There do not see any tissue texture changes to suggest infection. Extremity normal to inspection General Extremety ED: Negative for edema General Extremity: Negative for edema Neuro oriented x3 and CN's II-XII intact bilaterally Sensorium / Orientation: alert Motor Exam: strength 5/5 throughout Psych mental status grossly normal Mood & Affect: Negative for depressed or tearful Skin no rashes or lesions noted and no wounds MDM MDM MDM Narrative Medical decision making narrative: White count is at 17.2. Looking back at her old white counts they are almost always elevated. Her lipase is 208 glucose [address] of the abdomen pelvis was obtained. There is a area on the left kidney that is hypodense and has some perinephric stranding. I see that she underwent cryotherapy for the renal mass 2 weeks ago. She follows with Dr. Humphreys. Patient received pain medication. At this point I will write for the patient have pain medication. She is to call her doctor on Thursday if she continues to have symptoms. Urinalysis is also negative for overt infection Lab Data Attestation: I reviewed the patient's lab results. Labs: Laboratory Results - last 24 hr 04/04/22 04/04/22 04/04/22 14:14 14:14 15:45 WBC 17.2 H RBC 4.88 Hgb 11.9 L Hct 40.7 MCV 83.4 MCH 24.4 L MCHC 29.2 L RDW Std Deviation 47.1 H RDW Coeff of Moris 15.8 H Plt Count 463 H MPV 9.2 Immature Gran % (Auto) 1.200 H Neut % (Auto) 71.8 H Lymph % (Auto) 17.9 L [place] % (Auto) 6.5 Eos % (Auto) 2.0 Baso % (Auto) 0.6 Absolute Neuts (auto) 12.4 H Absolute Lymphs (auto) 3.08 Nucleated RBC % 0 Sodium 139 Potassium 4.3 Chloride 106 Carbon Dioxide 28.0 Anion Gap 5 BUN 22 H Creatinine 1.47 H Estim Creat Clear Calc 33.83 Est GFR (MDRD) Af Amer 46 L Est GFR (MDRD) Non-Af 38 L BUN/Creatinine Ratio 15.0 Glucose 166 H Calcium 9.3 Total Bilirubin 0.30 AST 24 ALT 30 Alkaline Phosphatase 118 H Total Protein 7.3 Albumin 3.2 Globulin 4.1 Albumin/Globulin Ratio 0.8 L Lipase 208 Urine Color Yellow Urine Clarity Clear Urine pH 5.0 Ur Specific [place] 1.010 Urine Protein 30 H Urine Glucose (UA) 1000 H Urine Ketones Negative Urine Occult Blood 250 H Urine Nitrite Negative Urine Bilirubin Negative Urine Urobilinogen Normal Ur Leukocyte Esterase 25 H Urine RBC 0-5 SEEN Urine WBC 0 SEEN Ur Squamous Epith Cells 0 SEEN Urine Bacteria RARE Urine Mucus 0 SEEN Radiography Diagnostic Testing: Clinical Impression(s) from Imaging Studies Abdomen/Pelvis CT 04/04/22 13:50 IMPRESSION: 5.9 cm x 3.8 cm x 6.7 some hypodense abnormality involving the medial portion of the mid to lower pole of the left kidney with perinephric stranding. This may represent either focal nephritis versus infarction. There is decreased attenuation at that level. Status post cholecystectomy. Electronically Signed: Simeon Osuna MD at 15:29 EST , Discharge Plan Triage Chief Complaint: Back ED Provider: Ajit Saleem Dx/Rx/DC Orders Clinical Impression: Post-operative pain, Essential (primary) hypertension, Stage 3 chronic kidney disease due to type 2 diabetes mellitus, Acute left flank pain Instructions: ED Flank Pain, Uncertain Cause Prescriptions: New oxycodone 10 mg tablet 10 mg PO TID PRN (Reason: pain) 3 Days Qty: 12 0RF No Action albuterol sulfate 90 mcg/actuation HFA aerosol inhaler 2 inh INHALATION Q4H PRN PRN (Reason: Sob &/Or Wheezing) Qty: 18 6RF magnesium oxide 500 mg capsule 500 mg PO BID glipizide 10 mg tablet 20 mg PO BID zolpidem 5 mg tablet 5 mg PO QHS furosemide 20 mg tablet 20 mg PO DAILY cholecalciferol (vitamin D3) 1,250 mcg (50,000 unit) capsule 50,000 unit PO TUFR ferrous sulfate 325 mg (65 mg iron) tablet 325 mg PO DAILY multivitamin Tablet 1 tab PO DAILY budesonide-formoterol [Symbicort] 160-4.5 mcg/actuation HFA aerosol inhaler 2 puff inhalation BID Qty: 1 3RF Rx Instructions: administer with spacer, rinse mouth after each use atorvastatin 40 mg tablet 40 mg PO DAILY cholecalciferol (vitamin D3) 125 mcg (5,000 unit) capsule 125 mcg PO DAILY Farxiga 10 mg tablet 10 mg PO DAILY Qty: 30 6RF Tresiba FlexTouch U-200 200 unit/mL (3 mL) insulin pen 80 unit subcut DAILY Qty: 12 6RF insulin aspart U-100 [Novolog Flexpen U-100 Insulin] 100 unit/mL (3 mL) insulin pen 30 unit subcut TID Qty: 30 6RF (DME) pen needle, diabetic [BD Ultra-Fine [place] Pen Needle] 32 gauge x 5/32 needle See Rx Instructions .ROUTE .MEDSUPPLY Qty: 120 6RF Rx Instructions: 4 times daily ergocalciferol (vitamin D2) [Vitamin D2] 1,250 mcg (50,000 unit) capsule 50,000 unit PO Label Comments: TAKE 1 CAPSULE BY MOUTH ONCE WEEKLY cyclobenzaprine 5 mg tablet PO Advair HFA 115-21 mcg/actuation HFA aerosol inhaler 2 inh inhalation Label Comments: INHALE 1 PUFF BY MOUTH TWICE A DAY lisinopril 40 MG tablet 40 mg PO DAILY esomeprazole magnesium 40 mg capsule,delayed release(DR/EC) 40 mg PO BID metformin 1,000 MG tablet 1,000 mg PO BIDCM duloxetine 60 MG capsule 60 mg PO QHS pramipexole 1.5 mg tablet 1.5 mg PO QHS diltiazem HCl 180 mg capsule,extended release 24hr 180 mg PO QHS metoprolol succinate 100 mg tablet extended release 24 hr 100 mg PO DAILY Mounjaro 5 mg/0.5 mL pen injector 5 mg subcut QWEEK Qty: 2 3RF Primary Care Provider: Kate Spencer Referrals: Kate Spencer DO [Primary Care Provider] - As Needed Activity Restrictions/Additional Instructions: If you are still having symptoms on Thursday I would encourage you to follow-up with Dr. Humphreys Disposition Disposition: Home, Self Care
[2022-04-04] MEDS: Ketorolac 30 MG/ML Syringe IV (14:10)
[2022-04-04] MEDS: HYDROmorphone 1 MG/ML Syringe IV (14:11)
[2022-04-04 14:24] LABS: Absolute Lymphocyte Count 3.08 X10^3/uL (0.83-4.51); Absolute Neutrophil Count 12.4 X10^3/uL (2.0-7.7); Basophil% 0.6 % (0-1); Eosinophil# 0.34 X10^3/uL; Hematocrit 40.7 % (37-47); Hemoglobin 11.9 g/dL (12.0-15.0); Lymphocyte # 3.08 X10^3/ul (0.83-4.51); Lymphocyte % 17.9 % (19-41); Mean Corp Hgb Conc 29.2 g/dL (32-36); Mean Corpuscular Hgb 24.4 pg (27.0-32.0); Mean Corpuscular Volume 83.4 fL (81-99); Mean Platelet Vol. 9.2 fl (6.2-12.0); Monocyte# 1.11 X10^3/uL; Monocyte% 6.5 % (0-10); NRBC Flagged by Analyzer 0 % (0-5); Neutrophil # 12.35 X10^3/uL (2.7-7.7); Neutrophil % 71.8 % (47-70); Platelet Count 463 K/mm3 (150-450); RBC Distribution Width CV 15.8 % (11.6-14.6); RBC Distribution Width SD 47.1 fl (35.1-43.9); Red Blood Count 4.88 M/mm3 (4.2-5.4); White Blood Count 17.2 K/mm3 (4.4-11.0)
[2022-04-04 14:45] LABS: ALB/GLOB Ratio 0.8 RATIO (0.9-2.4); AST(SGOT) 24 U/L (15-37); Alanine Aminotransfer ALT/SGPT 30 U/L (13-56); Albumin, Serum 3.2 g/dL (3.2-5.0); Alkaline Phosphatase 118 U/L (45-117); Anion Gap 5 (5-15); BUN 22 mg/dL (7-18); Calcium,Total 9.3 mg/dL (8.5-10.1); Chloride 106 mmol/L (98-107); Creatinine, Serum 1.47 mg/dL (0.55-1.02); EST Glomerular Filtration Rate 38 mL/min (>60); Est Glom Filt Rate - Afr Amer 46 mL/min (>60); Estimated Creatinine Clearance 33.83 ml/min; Globulin 4.1 g/dL (2.2-4.2); Glucose 166 mg/dL (74-106); Lipase 208 U/L (73-393); Potassium 4.3 mmol/L (3.5-5.1); Protein, Total 7.3 g/dL (6.4-8.2); Sodium Level 139 mmol/L (136-145)
[2022-04-04 16:06] LABS: Mucous, Urine 0 SEEN /hpf (<or=2+); Squamous Epithelial Cells - UA 0 SEEN /hpf (5-10); White Blood Cells 0 SEEN /hpf (0-5)
[2022-04-04 16:14] VITALS: RESP 16
[2022-04-04 16:15] LABS: Color, Urine Yellow (Yellow); Glucose, Dipstick 1000 mg/dl (Normal); Ketone-Dipstick Negative (Negative); Leukocyte Esterase-Dipstick 25 /ul (Negative); Nitrite-Dipstick Negative (Negative); Occult Blood-Urine 250 /ul (Negative); Protein-Dipstick 30 mg/dl (Negative); Urine Bilirubin Dipstick Negative (Negative); Urine Clarity Clear (Clear); Urine Urobilinogen Normal (Normal)
[2022-04-04 16:26] LABS: Bacteria RARE /hpf (None Seen); Red Blood Cells-Urine 0-5 SEEN /hpf (0-5)
== END 2022-04-04 16:39 | disposition home or self-care (01) ==
PROVIDERS: Emergency Provider Emergency Medicine; PCP Family Medicine; Visit Provider Emergency Medicine
DX: G89.18 Other acute postprocedural pain (principal); I13.0 Hypertensive heart and chronic kidney disease with heart failure and stage 1 through stage 4 chronic kidney disease, or unspecified chronic kidney disease; I50.32 Chronic diastolic (congestive) heart failure; E11.22 Type 2 diabetes mellitus with diabetic chronic kidney disease; Z79.4 Long term (current) use of insulin; N18.30 Chronic kidney disease, stage 3 unspecified; N28.89 Other specified disorders of kidney and ureter; R31.9 Hematuria, unspecified; M54.50 Low back pain, unspecified; E78.5 Hyperlipidemia, unspecified; E66.9 Obesity, unspecified; Z99.81 Dependence on supplemental oxygen; Z79.899 Other long term (current) drug therapy; Z87.891 Personal history of nicotine dependence
CPT/HCPCS: 74177; 80053; 81001; 83690; 85025; 96374; 96375; 99284; Q9967; A4216

== ENCOUNTER → 2022-04-17 | Outpatient (CLI) | payer MEDICAID, SELFPAY ==
[2022-04-17 11:20] LABS: Hematocrit 41.5 % (37-47); Hemoglobin 12.1 g/dL (12.0-15.0); Mean Corp Hgb Conc 29.2 g/dL (32-36); Mean Corpuscular Hgb 24.7 pg (27.0-32.0); Mean Corpuscular Volume 84.7 fL (81-99); Platelet Count 448 K/mm3 (150-450); RBC Distribution Width SD 49.3 fl (35.1-43.9); White Blood Count 13.9 K/mm3 (4.4-11.0)
[2022-04-17 11:41] LABS: PTHIN 94.5 pg/mL (18.4-80.1)
[2022-04-17 11:43] LABS: Protein, Urine (Random) 13.3 mg/dL (<11.9); Protein:Creat Ratio 319 mg/g CRE (0-200)
[2022-04-17 11:48] LABS: Albumin, Serum 3.1 g/dL (3.2-5.0); BUN 22 mg/dL (7-18); BUN/Creat Ratio 13.9 RATIO (10-20); Calcium,Total 8.9 mg/dL (8.5-10.1); Chloride 102 mmol/L (98-107); Creatinine, Serum 1.58 mg/dL (0.55-1.02); EST Glomerular Filtration Rate 35 mL/min (>60); Est Glom Filt Rate - Afr Amer 42 mL/min (>60); Glucose 178 mg/dL (74-106); Potassium 4.4 mmol/L (3.5-5.1); Sodium Level 139 mmol/L (136-145)
== END | disposition home or self-care (01) ==
LOC: LAB 10:13
PROVIDERS: PCP Family Medicine; Visit Provider Internal Medicine Nephrology
DX: N18.31 Chronic kidney disease, stage 3a (principal)
CPT/HCPCS: 36415; 80069; 82570; 83970; 84156; 85027

== ENCOUNTER → 2022-05-09 | Outpatient (CLI) | payer MEDICAID, SELFPAY ==
[2022-05-09 17:20] LABS: Follicle Stimulating Hormone 70.1 mIU/mL
== END | disposition home or self-care (01) ==
LOC: LAB 16:02
PROVIDERS: PCP Family Medicine; Visit Provider Nurse Practitioner Family
DX: R53.83 Other fatigue (principal)
CPT/HCPCS: 36415; 83001

== ENCOUNTER → 2022-06-10 | Outpatient (CLI) | payer MEDICAID, SELFPAY ==
--- NOTE | 2022-06-10 12:35 | MRI_ITS ---
INDICATION: F/U for right ADRENAL MASS EXAMINATION: MR Abdomen WO/W Contrast TECHNIQUE: Multiplanar and multisequence MR images of the abdomen were obtained. IV Contrast Dosage and Agent: 25ml Clariscan IV 25ml Clariscan COMPARISON: CT 04/04/2022. FINDINGS: LOWER CHEST: Lung bases are clear. No cardiomegaly or pericardial effusion. LIVER: Homogeneous. No focal mass. GALLBLADDER AND BILIARY TREE: Surgically absent. No intra- or extrahepatic biliary ductal dilation. PANCREAS: No focal cystic or solid mass. SPLEEN: Normal size without focal cystic or solid mass. ADRENAL GLANDS: Stable size of a T1 isointense/T2 mildly hyperintense 1.8 cm right adrenal nodule. No evidence of signal drop on out of phase T1 imaging compared to in phase imaging. KIDNEYS AND URETERS: Normal renal size and position. No hydronephrosis. Redemonstration of a 5.9 x 3.8 x 6.6 cm heterogeneous T1 hypointense/T2 mildly hyperintense lesion in the left upper pole with surrounding fat necrosis. PERITONEUM: No ascites or free air. No other fluid collection. LYMPH NODES: No enlarged mesenteric or retroperitoneal lymph nodes. VESSELS: Aorta is non-dilated. MRI/MRI Abd WITH and W/O Contrast IMPRESSION: Stable size of a 6.6 cm heterogeneous T1 hypointense/T2 mildly hyperintense defect in the left upper renal pole with surrounding fat necrosis indicating this is likely an infarct with or without concomitant infection. Stable 1.8 cm right adrenal nodule. No evidence of intralesional microscopic fat. Consider follow-up CT or MR abdomen with and without contrast to assess for enhancement. Electronically Signed: Tal Garsia MD at 17:56 EST ,
[2022-06-10 13:10] LABS: CREATININE FINGERSTICK 0.9 mg/dL (0.55-1.02); EGFR FINGERSTICK > 60.0000 mL/min (>60)
== END | disposition home or self-care (01) ==
LOC: MRI 12:23
PROVIDERS: PCP Family Medicine; Referring Provider Family Medicine; Visit Provider Family Medicine
DX: D44.10 Neoplasm of uncertain behavior of unspecified adrenal gland (principal)
CPT/HCPCS: 74183; A9575; J7050; A4216

== ENCOUNTER 2022-06-26 07:57 | Emergency (ER) | payer MEDICAID, SELFPAY ==
[2022-06-26] VITALS (8 sets, daily range): BP systolic 138–158; BP diastolic 55–83; PULSE 89–116; RESP 11–118; TEMP 36.3–36.7; O2SAT 92–98; BMI 46.5
--- NOTE | 2022-06-26 08:36 | RAD_ITS ---
STUDY: X-RAY CHEST REASON FOR EXAM: Female, 62 years old. Cough TECHNIQUE: PA and lateral views of the chest. COMPARISON: Comparison is made with prior study dated 07/16/2021. FINDINGS: EKG electrodes are seen. The lungs are clear and expanded. There is no demonstrated pleural abnormality. Normal size heart. Normal mediastinum and edwina. Normal visualized pulmonary arteries. There is atherosclerotic tortuosity of the aortic arch and descending thoracic aorta. There is demineralization of the osseous structures. Normal visualized ribs, clavicles, and shoulders. There is no demonstrated abnormality of the visualized soft tissue structures of the upper abdomen. RAD/Chest PA and Lateral IMPRESSION: No acute abnormality is seen. Electronically Signed: Simeon Osuna MD at 9:55 EST ,
--- NOTE | 2022-06-26 08:36 | EKG12_ITS ---
Test Reason : Blood Pressure : / mmHG Vent. Rate : 100 BPM Atrial Rate : 100 BPM P-R Int : 186 ms QRS Dur : 074 ms QT Int : 334 ms P-R-T Axes : 062 004 049 degrees QTc Int : 430 ms Normal sinus rhythm Low voltage QRS Borderline ECG Confirmed by MARY SNIDER, BERT ([id number]), film and video editor MARTI SELF ([id number]) on 06/27/2022 12:43:22 PM Referred By: CÉSAR Confirmed By:BERT HERNANDEZ MD
[2022-06-26] MEDS: Ipratropium/Albuterol Sulfate 3 ML AMPUL.NEB INHALATION (08:50)
[2022-06-26 09:11] LABS: Absolute Lymphocyte Count 3.61 X10^3/uL (0.83-4.51); Basophil% 1.1 % (0-1); Eosinophils% 11.2 % (0-5); Hematocrit 41.9 % (37-47); Hemoglobin 12.5 g/dL (12.0-15.0); Lymphocyte # 3.61 X10^3/ul (0.83-4.51); Lymphocyte % 19.3 % (19-41); Mean Corp Hgb Conc 29.8 g/dL (32-36); Mean Corpuscular Hgb 25.5 pg (27.0-32.0); Mean Corpuscular Volume 85.3 fL (81-99); Mean Platelet Vol. 9.6 fl (6.2-12.0); Monocyte# 1.03 X10^3/uL; Monocyte% 5.5 % (0-10); NRBC Flagged by Analyzer 0 % (0-5); Neutrophil # 11.02 X10^3/uL (2.7-7.7); Neutrophil % 58.9 % (47-70); POSITIVE DIFFERENTIAL YES; Platelet Count 314 K/mm3 (150-450); RBC Distribution Width CV 16.5 % (11.6-14.6); RBC Distribution Width SD 51.2 fl (35.1-43.9); Red Blood Count 4.91 M/mm3 (4.2-5.4); White Blood Count 18.7 K/mm3 (4.4-11.0)
[2022-06-26 09:15] LABS: D-Dimer Quantitative (DVT/PE) 0.34 FEU/ug/m (0.27-0.49)
[2022-06-26 09:24] LABS: Anion Gap 7 (5-15); BUN 20 mg/dL (7-18); BUN/Creat Ratio 13.7 RATIO (10-20); Calcium,Total 9.5 mg/dL (8.5-10.1); Chloride 104 mmol/L (98-107); Creatinine, Serum 1.46 mg/dL (0.55-1.02); EST Glomerular Filtration Rate 38 mL/min (>60); Est Glom Filt Rate - Afr Amer 46 mL/min (>60); Estimated Creatinine Clearance 33.62 ml/min; Glucose 181 mg/dL (74-106); Potassium 4.5 mmol/L (3.5-5.1); Sodium Level 140 mmol/L (136-145); Troponin-I HS 5 pg/mL (3.0-54.0)
[2022-06-26 09:29] LABS: BNP,B-Type NATRIURETIC PEPTIDE 9.1 pg/mL (0-100)
--- NOTE | 2022-06-26 09:34 | ED.VIS.DYS ---
HPI History of Present Illness Chief Complaint: Shortness of Breath Informant: patient Onset/Context/Timing Onset: Weeks (1.5) Context: gradual Timing: Continuous Quality: Positive for Wheezing Worsened by: Nothing Relieved by: Nothing Associated Symptoms cough, subjective and chills; Negative for rhinorrhea, ear pain, fever, sore throat, clear sputum, white sputum, yellow sputum or green sputum Chest Pain: Positive for Continuous, Sharp, Dull, Aching, Burning, Pressure and Tightness Narrative Narrative: Patient presents with shortness of breath that has been getting progressively worse over the past 1-1/2 weeks. Patient states that she feels like she is wheezing. Patient states nothing seems to make it any better nothing makes it any worse. Patient admits to a cough but denies any sputum production. Patient admits to some subjective chills but denies any fevers. Patient admits to some pain in her chest. Patient admits to some nausea but denies any vomiting. Patient states her pain does radiate into her back. 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 Type 2 diabetes mellitus Viral syndrome Home Medications lisinopril 40 mg tablet 40 mg PO DAILY Check with primary doctor 06/08/14 [History Last Taken 01/16/22 07:00] duloxetine 60 mg capsule,delayed release 60 mg PO QHS sleep 04/08/18 [History Last Taken 01/16/22 07:00] metformin 1,000 mg tablet 1,000 mg PO BIDCM DIABETES 04/08/18 [History Last Taken 01/15/22 20:00] esomeprazole magnesium 40 mg capsule,delayed release 40 mg PO BID GERD 03/06/20 [History Last Taken 01/15/22 08:00] magnesium oxide 500 mg capsule 500 mg PO BID supplement 06/13/20 [History Last Taken 01/15/22 08:00] albuterol sulfate 90 mcg/actuation aerosol inhaler 2 inh inhalation Q4H PRN PRN Sob &/Or Wheezing #18 grams 08/03/20 [Rx Last Taken 10/18/20] cholecalciferol (vitamin D3) 1,250 mcg (50,000 unit) capsule 50,000 unit PO TUFR supplement 09/05/20 [History Last Taken 10/16/20] furosemide 20 mg tablet 20 mg PO DAILY diuretic 09/05/20 [History Last Taken 01/15/22 0800] glipizide 10 mg tablet 20 mg PO BID diabetes 09/05/20 [History Last Taken 01/15/22 20:00] zolpidem 5 mg tablet 5 mg PO QHS sleep 09/05/20 [History Last Taken 01/15/22 20:00] diltiazem HCl 180 mg capsule,extended release 24 hr 180 mg PO QHS heart 10/18/20 [History Last Taken 01/16/22 07:00] metoprolol succinate 100 mg tablet,extended release 24 hr 100 mg PO DAILY bp 10/18/20 [History Last Taken 01/16/22 07:00] pramipexole 1.5 mg tablet 1.5 mg PO QHS restless legs 10/18/20 [History Last Taken 01/15/22 20:00] budesonide-formoterol HFA 160 mcg-4.5 mcg/actuation aerosol inhaler (Symbicort) 2 puff inhalation BID #1 ea 04/22/21 [Rx Last Taken Unknown] ferrous sulfate 325 mg (65 mg iron) tablet 325 mg PO DAILY 07/16/21 [History Last Taken 01/15/22 08:00] atorvastatin 40 mg tablet 40 mg PO DAILY 10/22/21 [History Last Taken 01/15/22 08:00] cholecalciferol (vitamin D3) 125 mcg (5,000 unit) capsule 125 mcg PO DAILY 12/19/21 [History Last Taken 01/15/22 08:00] insulin aspart U-100 100 unit/mL (3 mL) subcutaneous pen (Novolog FlexPen U-100 Insulin aspart) 30 unit (0.3 mL) subcut TID #30 mL 12/19/21 [Rx Last Taken Unknown] insulin degludec 200 unit/mL (3 mL) subcutaneous pen (Tresiba FlexTouch U-200 insulin) 80 unit (0.4 mL) subcut DAILY #12 mL 12/19/21 [Rx Last Taken Unknown] pen needle, diabetic 32 gauge x 5/32 (BD Ultra-Fine [place] Pen Needle) #120 ea 12/19/21 [Rx Last Taken Unknown] cyclobenzaprine 5 mg tablet tablet PO 02/03/22 [History Last Taken Unknown] ergocalciferol (vitamin D2) 1,250 mcg (50,000 unit) capsule (Vitamin D2) 50,000 unit PO 02/03/22 [History Last Taken Unknown] dapagliflozin 10 mg tablet (Farxiga) 10 mg PO DAILY #30 tabs 06/10/22 [Rx Last Taken Unknown] tirzepatide 5 mg/0.5 mL subcutaneous pen injector (Mounjaro) 5 mg (0.5 mL) subcut QWEEK #2 mL 06/24/22 [Rx Last Taken Unknown] Allergy/AdvReac Type Severity Reaction Status Date / Time Penicillins Allergy Hives Verified 05/22/22 14:13 Family History Father Cancer bladder cancer Hypertension Mother Diabetes Hypertension Sister Diabetes Surgical History History of carpal tunnel release History of cholecystectomy History of left heart catheterization (07/25/21) History of tubal ligation Social History Smoking Status: Former smoker how long ago did patient quit smokin alcohol intake: never substance use type: does not use caffeine: Yes Type: coffee Number of servings: 5 ROS ROS ED Constitutional Constitutional ED: Reports chills; Denies fever(s) Eyes Eyes: Reports blurry vision; Denies diplopia ENT ENT ED: Denies rhinorrhea or sore throat Cardiovascular Cardiovascular: Reports chest pain; Denies palpitations Respiratory/Chest Respiratory/Chest: Reports cough and dyspnea Gastrointestinal Gastrointestinal: Reports nausea; Denies vomiting Genitourinary Genitourinary ED: Denies dysuria or hematuria Musculoskeletal Musculoskeletal: Reports back pain; Denies neck pain Integumentary Denies abscess or rash Neurologic Neurologic: Reports headache(s); Denies weakness Allergic/Immunologic Allergic/Immunologic ED: Denies mouth swelling or urticaria EXAM Physical Exam Const Vital Signs: 06/26/22 07:57 06/26/22 08:34 06/26/22 08:38 Temperature 97.3 F L Temperature Source Temporal Pulse Rate 109 H 103 H Respiratory Rate 22 H 14 Respiratory Effort Short of Breath Labored Respiratory Depth Shallow Respiratory Pattern Blood Pressure 158/78 H 154/83 H Blood Pressure Mean 104 106 Pulse Ox 94 92 Oxygen Delivery Method Room Air Room Air 06/26/22 09:03 06/26/22 08:50 06/26/22 10:09 Temperature 97.6 F L Temperature Source Oral Pulse Rate 116 H 89 100 Respiratory Rate 11 L 20 H 118 H Respiratory Effort Respiratory Depth Respiratory Pattern Normal Blood Pressure 145/55 H 145/65 H Blood Pressure Mean 85 91 Pulse Ox 98 97 Oxygen Delivery Method Room Air 06/26/22 12:10 06/26/22 12:33 Temperature 98.0 F Temperature Source Oral Pulse Rate 103 H 100 Respiratory Rate 16 20 H Respiratory Effort Respiratory Depth Respiratory Pattern Blood Pressure 138/73 H 141/69 H Blood Pressure Mean 94 93 Pulse Ox 93 92 Oxygen Delivery Method Room Air Room Air Positive well nourished, well developed and obese General Appearance ED: well developed and NAD Nutritional Appearance: obese HEENT Reports moist mucous membranes Neck supple and no JVD Resp normal respiratory effort Auscultation: wheezes expiratory wheezes and throughout Cardio regular rate, regular rhythm and no murmurs GI normal to inspection, nondistended, normoactive bowel sounds and non-tender Palpation: soft Extremity normal to inspection General Extremety ED: Negative for edema or tenderness General Extremity: Negative for edema Neuro oriented x3, CN's II-XII intact bilaterally and no sensory deficits noted Sensorium / Orientation: alert Motor Exam: strength 5/5 throughout Psych mental status grossly normal Skin no rashes or lesions noted MDM MDM MDM Narrative Medical decision making narrative: Differential diagnosis includes pneumonia, pulmonary embolism, viral infection, cardiac dysrhythmia, congestive heart failure, cardiac ischemia, and pneumothorax. CBC will be obtained to assess for leukocytosis and anemia. Basic metabolic profile will be obtained to assess for electrolyte abnormality and renal function. D-dimer will be obtained to assess for pulmonary embolism. High-sensitivity troponin will be obtained to assess for cardiac ischemia. BNP will be obtained to assess for congestive heart failure. Chest x-ray will be obtained to assess for pneumonia and congestive heart failure. EKG will be obtained to assess for cardiac dysrhythmia and cardiac ischemia. Lab Data Attestation: I reviewed the patient's lab results. Lab results narrative: D-dimer was reviewed and was normal. Basic metabolic profile was reviewed and showed a mildly elevated creatinine of 1.46 and BUN of 20. (Patient has a history of chronic kidney disease). High-sensitivity troponin was reviewed and was normal. B natruretic peptide was reviewed and was normal. Labs: Laboratory Results - last 24 hr 06/26/22 06/26/22 06/26/22 09:00 09:00 09:00 WBC 18.7 H RBC 4.91 Hgb 12.5 Hct 41.9 MCV 85.3 MCH 25.5 L MCHC 29.8 L RDW Std Deviation 51.2 H RDW Coeff of Moris 16.5 H Plt Count 314 MPV 9.6 Immature Gran % (Auto) 4.000 H Neut % (Auto) 58.9 Lymph % (Auto) 19.3 [place] % (Auto) 5.5 Eos % (Auto) 11.2 H Baso % (Auto) 1.1 H Absolute Neuts (auto) 11.0 H Absolute Lymphs (auto) 3.61 Nucleated RBC % 0 Differential Comment SCANNED Diff Path Review May foll RBC Morphology NORM C+C D-Dimer Quant (PE/DVT) 0.34 Sodium 140 Potassium 4.5 Chloride 104 Carbon Dioxide 29.0 Anion Gap 7 BUN 20 H Creatinine 1.46 H Estim Creat Clear Calc 33.62 Est GFR (MDRD) Af Amer 46 L Est GFR (MDRD) Non-Af 38 L BUN/Creatinine Ratio 13.7 Glucose 181 H Calcium 9.5 Troponin I High Sens 5 B-Natriuretic Peptide 06/26/22 09:00 WBC RBC Hgb Hct MCV MCH MCHC RDW Std Deviation RDW Coeff of Moris Plt Count MPV Immature Gran % (Auto) Neut % (Auto) Lymph % (Auto) [place] % (Auto) Eos % (Auto) Baso % (Auto) Absolute Neuts (auto) Absolute Lymphs (auto) Nucleated RBC % Differential Comment Diff Path Review RBC Morphology D-Dimer Quant (PE/DVT) Sodium Potassium Chloride Carbon Dioxide Anion Gap BUN Creatinine Estim Creat Clear Calc Est GFR (MDRD) Af Amer Est GFR (MDRD) Non-Af BUN/Creatinine Ratio Glucose Calcium Troponin I High Sens B-Natriuretic Peptide 9.1 Radiography Diagnostic Testing: Clinical Impression(s) from Imaging Studies Chest X-Ray 06/26/22 08:36 IMPRESSION: No acute abnormality is seen. Electronically Signed: Simeon Osuna MD at 9:55 EST , PA and lateral chest x-ray was obtained. There are 2 views. On my independent interpretation, lung reagan are clear. There is normal cardiac silhouette. Bony thorax is normal. There is no acute process noted. Radiologist also interpreted the x-ray and agrees. EKG Initial EKG: Attestation: I personally reviewed and interpreted this EKG as follows: Interpretation: Sinus Rhythm (100) and No Acute Injury Pattern Comments: EKG was obtained. On my independent interpretation, it showed a normal sinus rhythm with a rate of 100. OK interval, QRS interval, and QTc intervals were all normal. [place] was normal. There are no acute ST or T wave changes. Prior EKG tracings: available for review Prior: Unchanged (08/28/2021) Treatment and Re-Evaluation Narrative: Patient was advised of her findings. Patient was instructed to drink plenty of fluids. Patient was to use her albuterol inhaler as needed. Patient was given a dose of prednisone here. Patient was instructed to follow-up with her primary care physician in 5 to 7 days. Patient was instructed to take [id number] cough medicine as needed. Patient understood and was agreeable with the plan. All questions were answered. Discharge Plan Triage Chief Complaint: Shortness of Breath ED Provider: Alfonso Pace Dx/Rx/DC Orders Clinical Impression: Viral upper respiratory tract infection, Viral bronchitis Instructions: ED URI, Viral, No Abx (Adult) Prescriptions: No Action albuterol sulfate 90 mcg/actuation HFA aerosol inhaler 2 inh INHALATION Q4H PRN PRN (Reason: Sob &/Or Wheezing) Qty: 18 6RF magnesium oxide 500 mg capsule 500 mg PO BID glipizide 10 mg tablet 20 mg PO BID zolpidem 5 mg tablet 5 mg PO QHS furosemide 20 mg tablet 20 mg PO DAILY cholecalciferol (vitamin D3) 1,250 mcg (50,000 unit) capsule 50,000 unit PO TUFR ferrous sulfate 325 mg (65 mg iron) tablet 325 mg PO DAILY budesonide-formoterol [Symbicort] 160-4.5 mcg/actuation HFA aerosol inhaler 2 puff inhalation BID Qty: 1 3RF Rx Instructions: administer with spacer, rinse mouth after each use atorvastatin 40 mg tablet 40 mg PO DAILY cholecalciferol (vitamin D3) 125 mcg (5,000 unit) capsule 125 mcg PO DAILY Tresiba FlexTouch U-200 200 unit/mL (3 mL) insulin pen 80 unit subcut DAILY Qty: 12 6RF insulin aspart U-100 [Novolog FlexPen U-100 Insulin] 100 unit/mL (3 mL) insulin pen 30 unit subcut TID Qty: 30 6RF (DME) pen needle, diabetic [BD Ultra-Fine [place] Pen Needle] 32 gauge x 5/32 needle See Rx Instructions .ROUTE .MEDSUPPLY Qty: 120 6RF Rx Instructions: 4 times daily ergocalciferol (vitamin D2) [Vitamin D2] 1,250 mcg (50,000 unit) capsule 50,000 unit PO Label Comments: TAKE 1 CAPSULE BY MOUTH ONCE WEEKLY cyclobenzaprine 5 mg tablet PO lisinopril 40 MG tablet 40 mg PO DAILY esomeprazole magnesium 40 mg capsule,delayed release(DR/EC) 40 mg PO BID metformin 1,000 MG tablet 1,000 mg PO BIDCM duloxetine 60 MG capsule 60 mg PO QHS pramipexole 1.5 mg tablet 1.5 mg PO QHS diltiazem HCl 180 mg capsule,extended release 24hr 180 mg PO QHS metoprolol succinate 100 mg tablet extended release 24 hr 100 mg PO DAILY Farxiga 10 mg tablet 10 mg PO DAILY Qty: 30 6RF Mounjaro 5 mg/0.5 mL pen injector 5 mg subcut QWEEK Qty: 2 3RF Primary Care Provider: Kate Spencer Referrals: Kate Spencer DO [Primary Care Provider] - 3-5 Days Disposition Disposition: Home, Self Care
[2022-06-26 10:17] LABS: Differential Indicated SCAN CRITERIA MET
[2022-06-26 10:19] LABS: Differential Comment SCANNED; Red Cell Morphology NORM C+C NORMAL (NORM C&C)
[2022-06-26] MEDS: predniSONE 20 MG Tablet 40 MG PO (13:03)
[2022-06-27 10:36] LABS: Pathologist Review Reviewed
== END 2022-06-26 13:07 | disposition home or self-care (01) ==
PROVIDERS: Emergency Provider Emergency Medicine; PCP Family Medicine; Visit Provider Emergency Medicine
DX: J06.9 Acute upper respiratory infection, unspecified (principal); I50.32 Chronic diastolic (congestive) heart failure; N18.30 Chronic kidney disease, stage 3 unspecified; J40 Bronchitis, not specified as acute or chronic; G47.30 Sleep apnea, unspecified; E66.9 Obesity, unspecified; Z87.891 Personal history of nicotine dependence
CPT/HCPCS: 71046; 80048; 83880; 84484; 85025; 85379; 87428; 93005; 94640; 99285; A4216

== ENCOUNTER → 2022-08-20 | Outpatient (CLI) | payer MEDICAID, SELFPAY ==
[2022-08-20 12:47] LABS: Protein, Urine (Random) 6.5 mg/dL (<11.9); Protein:Creat Ratio 255 mg/g CRE (0-200)
[2022-08-20 13:09] LABS: Anion Gap 6 (5-15); BUN 29 mg/dL (7-18); BUN/Creat Ratio 19.7 RATIO (10-20); Calcium,Total 9.1 mg/dL (8.5-10.1); Chloride 102 mmol/L (98-107); Creatinine, Serum 1.47 mg/dL (0.55-1.02); EST Glomerular Filtration Rate 38 mL/min (>60); Est Glom Filt Rate - Afr Amer 46 mL/min (>60); Glucose 212 mg/dL (74-106); Potassium 4.3 mmol/L (3.5-5.1); Sodium Level 138 mmol/L (136-145)
== END | disposition home or self-care (01) ==
LOC: LAB 11:42
PROVIDERS: PCP Family Medicine; Referring Provider Internal Medicine Nephrology; Visit Provider Internal Medicine Nephrology
DX: N18.31 Chronic kidney disease, stage 3a (principal)
CPT/HCPCS: 36415; 80048; 82570; 84156

== ENCOUNTER → 2022-08-25 | Outpatient (CLI) | payer MEDICAID, SELFPAY ==
--- NOTE | 2022-08-25 12:42 | BI_ITS ---
MAMMOGRAPHY - BILATERAL SCREENING REASON FOR EXAM: Female, 62 years old. Routine annual screening examination. PERTINENT HISTORY: Non-contributory. Remote right stereotactic breast biopsy. TECHNIQUE: Digital bilateral breast melani (3D mammographic acquisition) in the CC and MLO projections. 2-D mediolateral oblique (MLO) and craniocaudad (CC) views of both breasts were obtained. CAD: Full Field Digital Mammography with Computer Added Detection was performed. COMPARISON: Comparison is made with prior study September 01, 2017 and December 08, 2012. FINDINGS: Breast Composition: There are scattered areas of fibroglandular density. There are no dominant masses or suspicious calcifications. No other significant abnormalities are identified. There has been no significant change since the prior study. BI/SCRN MAMM (CAD)W/MELANI BILAT IMPRESSION: Stable bilateral screening mammogram. Yearly follow-up mammogram recommended. (A) ASSESSMENT CATEGORY: BIRADS Category 1: Negative. A letter regarding these results will be sent to the patient by the facility within 30 days. Approximately 10% of breast cancers are not detected by mammography. A normal mammogram should not delay biopsy of a clinically suspicious abnormality. [id number] Electronically Signed: Simeon Osuna MD at 13:49 EDT ,
== END | disposition home or self-care (01) ==
LOC: OPBI 12:40
PROVIDERS: PCP Family Medicine; Referring Provider Family Medicine; Visit Provider Family Medicine
DX: Z12.31 Encounter for screening mammogram for malignant neoplasm of breast (principal)
CPT/HCPCS: 77063; 77067

== ENCOUNTER → 2022-09-09 | Outpatient (CLI) | payer MEDICAID, SELFPAY ==
--- NOTE | 2022-09-09 15:03 | RAD_ITS ---
EXAM: XR LUMBOSACRAL SPINE, 2 OR 3 VIEWS CLINICAL INDICATION: None provided. M51.37 TECHNIQUE: Frontal and lateral views of the lumbar spine and sacrum. 4 total views, lateral exam was repeated, additional lateral focused view of the lumbosacral junction. COMPARISON: No relevant prior studies available. FINDINGS: VERTEBRAE: Unremarkable. Preserved vertebral body height. No fracture. No spondylolisthesis. Preservation of the normal lumbar lordosis and mildly accentuated lordosis.. No significant facet arthropathy. DISC SPACES: No acute findings. Disc spaces are maintained with the exception of mild disc space narrowing and vacuum disc at T12-L2.. GASTROINTESTINAL TRACT: Unremarkable as visualized. Included bowel gas pattern is non-obstructive. OTHER: Cholecystectomy clips. RAD/Lumbar Spine 2 or 3 Views IMPRESSION: Mild degenerative changes. Mild accentuated lordosis. No acute findings. Electronically Signed: Luda Ornelas MD at 9:17 EDT ,
== END | disposition home or self-care (01) ==
LOC: RAD 15:00
PROVIDERS: PCP Family Medicine; Referring Provider Anesthesiology Pain Medicine; Visit Provider Anesthesiology Pain Medicine
DX: M51.36 Other intervertebral disc degeneration, lumbar region (principal); M51.37 Other intervertebral disc degeneration, lumbosacral region
CPT/HCPCS: 72100

== ENCOUNTER → 2022-09-16 | Outpatient (CLI) | payer MEDICAID, SELFPAY ==
[2022-09-16 13:05] LABS: ALB/GLOB Ratio 0.8 RATIO (0.9-2.4); AST(SGOT) 18 U/L (15-37); Alanine Aminotransfer ALT/SGPT 19 U/L (13-56); Albumin, Serum 3.4 g/dL (3.2-5.0); Alkaline Phosphatase 111 U/L (45-117); Anion Gap 9 (5-15); BUN 27 mg/dL (7-18); BUN/Creat Ratio 16.1 RATIO (10-20); Calcium,Total 9.6 mg/dL (8.5-10.1); Chloride 100 mmol/L (98-107); Creatinine, Serum 1.68 mg/dL (0.55-1.02); EST Glomerular Filtration Rate 33 mL/min (>60); Est Glom Filt Rate - Afr Amer 39 mL/min (>60); Globulin 4.1 g/dL (2.2-4.2); Glucose 156 mg/dL (74-106); Potassium 4.3 mmol/L (3.5-5.1); Protein, Total 7.5 g/dL (6.4-8.2); Sodium Level 139 mmol/L (136-145)
== END | disposition home or self-care (01) ==
LOC: BFHLAB 09:42
PROVIDERS: PCP Family Medicine; Referring Provider Family Medicine; Visit Provider Family Medicine
DX: Z51.81 Encounter for therapeutic drug level monitoring (principal)
CPT/HCPCS: 36415; 80053

== ENCOUNTER → 2022-10-03 | Outpatient (CLI) | payer MEDICAID, SELFPAY ==
[2022-10-03 13:29] LABS: Hemoglobin A1c 7.2 % (3.8-5.6)
== END | disposition home or self-care (01) ==
LOC: LAB 11:26
PROVIDERS: PCP Family Medicine; Referring Provider Nurse Practitioner Family; Visit Provider Nurse Practitioner Family
DX: E11.65 Type 2 diabetes mellitus with hyperglycemia (principal); Z79.4 Long term (current) use of insulin
CPT/HCPCS: 36415; 83036

== ENCOUNTER 2022-12-11 15:31 | Emergency (ER) | payer MEDICARE, MEDICAID, SELFPAY ==
[2022-12-11 15:32] VITALS: BP 142/54; PULSE 92; RESP 16; TEMP 36.6; O2SAT 98; BMI 46.0
--- NOTE | 2022-12-11 16:06 | EDS_ITS ---
HPI History of Present Illness Chief Complaint: Abd Pain Narrative Narrative: Patient presenting today due to postoperative pain. She reports that on Thursday she had a gastric bypass robotic surgery performed by Dr. Cruz at [facility]. There were no complications, patient was kept overnight and discharged home on Thursday. On Thursday she began having increased abdominal pain. She is only had 2 doses of her pain medication that she was prescribed. She reports that she has not been taking the pain medication because it does not agree with her. When asked why it does not agree with her she reports, I do not like the aftertaste. She reports that the pain is so severe that it makes her feel like she cannot take a deep breath, but she denies feeling short of breath. She has felt nauseous today due to the pain and had one episode of vomiting. She denies any fever, chills, and chest pain. 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 Type 2 diabetes mellitus Viral syndrome Home Medications lisinopril 40 mg tablet 40 mg PO DAILY Check with primary doctor 06/08/14 [History Last Taken 01/16/22 07:00] duloxetine 60 mg capsule,delayed release 60 mg PO QHS sleep 04/08/18 [History Last Taken 01/16/22 07:00] esomeprazole magnesium 40 mg capsule,delayed release 40 mg PO BID GERD 03/06/20 [History Last Taken 01/15/22 08:00] magnesium oxide 500 mg capsule 500 mg PO BID supplement 06/13/20 [History Last Taken 01/15/22 08:00] albuterol sulfate 90 mcg/actuation aerosol inhaler 2 inh inhalation Q4H PRN PRN Sob &/Or Wheezing #18 grams 08/03/20 [Rx Last Taken 10/18/20] cholecalciferol (vitamin D3) 1,250 mcg (50,000 unit) capsule 50,000 unit PO TUFR supplement 09/05/20 [History Last Taken 10/16/20] zolpidem 5 mg tablet 5 mg PO QHS sleep 09/05/20 [History Last Taken 01/15/22 20:00] diltiazem HCl 180 mg capsule,extended release 24 hr 180 mg PO QHS heart 10/18/20 [History Last Taken 01/16/22 07:00] metoprolol succinate 100 mg tablet,extended release 24 hr 100 mg PO DAILY bp 10/18/20 [History Last Taken 01/16/22 07:00] pramipexole 1.5 mg tablet 1.5 mg PO QHS restless legs 10/18/20 [History Last Taken 01/15/22 20:00] budesonide-formoterol HFA 160 mcg-4.5 mcg/actuation aerosol inhaler (Symbicort) 2 puff inhalation BID #1 ea 04/22/21 [Rx Last Taken Unknown] ferrous sulfate 325 mg (65 mg iron) tablet 325 mg PO DAILY 07/16/21 [History Last Taken 01/15/22 08:00] atorvastatin 40 mg tablet 40 mg PO DAILY 10/22/21 [History Last Taken 01/15/22 08:00] cholecalciferol (vitamin D3) 125 mcg (5,000 unit) capsule 125 mcg PO DAILY 12/19/21 [History Last Taken 01/15/22 08:00] pen needle, diabetic 32 gauge x 5/32 (BD Ultra-Fine Mecca Pen Needle) #120 ea 12/19/21 [Rx Last Taken Unknown] cyclobenzaprine 5 mg tablet 5 mg PO Q12H 02/03/22 [History Last Taken Unknown] ergocalciferol (vitamin D2) 1,250 mcg (50,000 unit) capsule (Vitamin D2) 50,000 unit PO DAILY 02/03/22 [History Last Taken Unknown] insulin aspart U-100 100 unit/mL (3 mL) subcutaneous pen (Novolog FlexPen U-100 Insulin aspart) 22 unit subcut TID 12/11/22 [History Last Taken Unknown] Allergy/AdvReac Type Severity Reaction Status Date / Time Penicillins Allergy Hives Verified 12/11/22 15:33 Family History Father Cancer bladder cancer Hypertension Mother Diabetes Hypertension Cancer Sister Diabetes Surgical History Gastric bypass status for obesity History of carpal tunnel release History of cholecystectomy History of left heart catheterization (07/25/21) History of tubal ligation Social History Smoking Status: Former smoker how long ago did patient quit smokin alcohol intake: never substance use type: does not use caffeine: Yes Type: coffee Number of servings: 5 ROS ROS ED Constitutional Constitutional ED: Denies chills or fever(s) Cardiovascular Cardiovascular: Denies chest pain or palpitations Respiratory/Chest Respiratory/Chest: Denies cough, dyspnea or dyspnea on exertion Gastrointestinal Gastrointestinal: Reports abdominal pain, nausea and vomiting; Denies constipation or diarrhea Genitourinary Genitourinary ED: Denies dysuria, hematuria or urinary urgency Musculoskeletal Musculoskeletal: Denies arthralgias or myalgias Integumentary Denies rash Neurologic Neurologic: Denies weakness EXAM Physical Exam Const Vital Signs: 12/11/22 15:32 12/11/22 16:58 Temperature 98 F Temperature Source Temporal Pulse Rate 92 Respiratory Rate 16 20 H Blood Pressure 142/54 H Blood Pressure Mean 83 Pulse Ox 98 Oxygen Delivery Method Room Air Positive well nourished, well developed and no apparent distress General Appearance ED: well developed HEENT Reports normocephalic and head/scalp atraumatic Mouth ED: Yes moist mucous membranes normal Eyes PERRL and EOMs intact bilaterally Neck full ROM and supple Chest Wall inspection of chest normal Resp normal respiratory effort and clear to auscultation bilaterally Cardio regular rate and regular rhythm GI soft to palpation, non-distended and no masses GI Narrative: Generalized tenderness to palpation without any rigidity or guarding or peritoneal signs. 5 laparoscopic healing surgical incisions without any surrounding erythema, dehiscence, purulent discharge, or edema. Back/Spine normal ROM and normal to inspection Extremity normal to inspection and full ROM Neuro oriented x3, CN's II-XII intact bilaterally, moves all extremities, no focal motor deficits and no sensory deficits noted Sensorium / Orientation: awake and alert Psych mental status grossly normal and thought process normal Skin no rashes or lesions noted and no wounds MDM MDM MDM Narrative Medical decision making narrative: Patient presenting today with postoperative pain after a gastric bypass that was performed on Thursday. She is well-appearing and in no acute distress, vitals are unremarkable. She was discharged home on Thursday and on Thursday began having increasing pain to her abdomen. She took 1 dose of her pain medication on Thursday and took 1 dose of the medicine today. She has not been regularly taking her pain medication as prescribed because she does not like the aftertaste. I did explain to patient that the pain medication needs to be taken as prescribed in order to have an adequate effect. She was given a GI cocktail here for her pain due to epigastric pain and reflux. Patient has 5 laparoscopic surgical incisions that are healing well without any signs of infection. On reexamination she reports that she would like to go home so that she can take her pain medicine. She is to follow-up with her surgeon and will be discharged home in stable condition. She is comfortable with plan Discharge Plan Triage Chief Complaint: Abd Pain ED Midlevel Provider: Madeline Osorio ED Provider: Yaakov Bolanos Dx/Rx/DC Orders Clinical Impression: Post-operative pain, S/P gastric bypass Instructions: Managing Post-Op Pain at Home Prescriptions: No Action albuterol sulfate 90 mcg/actuation HFA aerosol inhaler 2 inh INHALATION Q4H PRN PRN (Reason: Sob &/Or Wheezing) Qty: 18 6RF magnesium oxide 500 mg capsule 500 mg PO BID Hold Instructions: post surgery zolpidem 5 mg tablet 5 mg PO QHS cholecalciferol (vitamin D3) 1,250 mcg (50,000 unit) capsule 50,000 unit PO Hold Instructions: post surgery ferrous sulfate 325 mg (65 mg iron) tablet 325 mg PO DAILY Hold Instructions: post surgery budesonide-formoterol [Symbicort] 160-4.5 mcg/actuation HFA aerosol inhaler 2 puff inhalation BID Qty: 1 3RF Rx Instructions: administer with spacer, rinse mouth after each use atorvastatin 40 mg tablet 40 mg PO DAILY cholecalciferol (vitamin D3) 125 mcg (5,000 unit) capsule 125 mcg PO DAILY Hold Instructions: post surgery (DME) pen needle, diabetic [BD Ultra-Fine Mecca Pen Needle] 32 gauge x 5/32 needle See Rx Instructions .ROUTE .MEDSUPPLY Qty: 120 6RF Rx Instructions: 4 times daily ergocalciferol (vitamin D2) [Vitamin D2] 1,250 mcg (50,000 unit) capsule 50,000 unit PO DAILY Hold Instructions: post surgery Patient Comments: TAKE 1 CAPSULE BY MOUTH ONCE WEEKLY cyclobenzaprine 5 mg tablet 5 mg PO Q12H lisinopril 40 MG tablet 40 mg PO DAILY esomeprazole magnesium 40 mg capsule,delayed release(DR/EC) 40 mg PO BID duloxetine 60 MG capsule 60 mg PO QHS pramipexole 1.5 mg tablet 1.5 mg PO QHS diltiazem HCl 180 mg capsule,extended release 24hr 180 mg PO QHS metoprolol succinate 100 mg tablet extended release 24 hr 100 mg PO DAILY insulin aspart U-100 [Novolog FlexPen U-100 Insulin] 100 unit/mL (3 mL) insulin pen 22 unit subcut TID Primary Care Provider: Kate Spencer Referrals: Kate Spencer DO [Primary Care Provider] - 3-5 Days Activity Restrictions/Additional Instructions: Take your pain medication as prescribed. Please follow-up with your surgeon. Disposition Disposition: Home, Self Care Discharge Date/Time: 12/11/22 16:59
[2022-12-11] MEDS: Famotidine 20 MG Tablet PO (16:13)
[2022-12-11] MEDS: Mag Hydrox/Al Hydrox/Simeth 30 ML UDC PO (16:13)
[2022-12-11 16:58] VITALS: RESP 20
== END 2022-12-11 16:59 | disposition home or self-care (01) ==
PROVIDERS: Emergency Provider Emergency Medicine; PCP Family Medicine; Visit Provider Emergency Medicine
DX: R10.13 Epigastric pain (principal); I13.0 Hypertensive heart and chronic kidney disease with heart failure and stage 1 through stage 4 chronic kidney disease, or unspecified chronic kidney disease; I50.32 Chronic diastolic (congestive) heart failure; E11.22 Type 2 diabetes mellitus with diabetic chronic kidney disease; Z68.42 Body mass index [BMI] 45.0-49.9, adult; Z79.4 Long term (current) use of insulin; N18.30 Chronic kidney disease, stage 3 unspecified; G89.18 Other acute postprocedural pain; E78.5 Hyperlipidemia, unspecified; E66.9 Obesity, unspecified; Z98.84 Bariatric surgery status; Z90.49 Acquired absence of other specified parts of digestive tract; Z79.899 Other long term (current) drug therapy; Z87.891 Personal history of nicotine dependence
CPT/HCPCS: 99283

== ENCOUNTER → 2022-12-18 | Outpatient (CLI) | payer MEDICARE, MEDICAID, SELFPAY ==
--- NOTE | 2022-12-17 17:10 | LES_PTH ---
PATIENT: LANA GODOY [facility]: [facility] U#:[id number] AGE/SX: 62/F ROOM: RE12/18/[address]: Dr. Kate Spencer DO : 1960 BED: DIS: 12/18/2022 SPEC #: [id number] RECD: 12/18/22 12:05 STATUS: MARÍA ARIN #: [id number] ZEKE: 12/17/22 17:[address]: Kate Spencer DEPT: SURGICAL PATHOLOGY RECD BY: Evon Tucker Tissues: Skin of leg, NOS Procedures: Special Stain Group I Surgery Specimen Level IV AFB Stain (control) GMS Stain (control) HEADER OPERATION: Excisional biopsy PRE-OP DIAGNOSIS: Pyogenic granuloma vs squamous cell CA TISSUE SUBMITTED: Right medial perez MICROSCOPIC DIAGNOSIS Skin lesion, right medial perez, biopsy: Pyogenic granuloma, ulcerated. Fibrinopurulent material. Negative for acid-fast bacilli and fungal organisms. See comment. AM:lalo 12/19/2022 COMMENT AFB and GMS stains with matched controls were used in the evaluation of this case. MICROSCOPIC DESCRIPTION Slides are reviewed. GROSS DESCRIPTION Received is one container labeled with the patient's name and not further designated. The specimen consists of an ellipse of light rodrigues skin measuring 1.3 x 0.8 cm. Attached to this is an indurated fragment of rodrigues tissue measuring 0.5 x 0.5 cm. The specimen is bisected and totally submitted in one cassette. / AM:lalo 12/18/2022 TC:2 CPT: 27854, 61222 x2
== END | disposition home or self-care (01) ==
LOC: LABSPEC 08:37
PROVIDERS: PCP Family Medicine; Referring Provider Family Medicine; Visit Provider Family Medicine
DX: L98.0 Pyogenic granuloma (principal)
CPT/HCPCS: 88305; 88312

== ENCOUNTER → 2023-02-11 | Outpatient (CLI) | payer MEDICARE, MEDICAID, SELFPAY ==
[2023-02-11 11:16] LABS: Microalbumin,Random Urine 94.7 mg/L (NO RANGE EST.); Microalbumin:Creatinine Ratio 105.7 mg/g CRE (<30 mg/g CRE)
[2023-02-11 11:20] LABS: ALB/GLOB Ratio 0.9 RATIO (0.9-2.4); AST(SGOT) 14 U/L (15-37); Alanine Aminotransfer ALT/SGPT 33 U/L (13-56); Albumin, Serum 3.2 g/dL (3.2-5.0); Alkaline Phosphatase 102 U/L (45-117); Anion Gap 5 (5-15); BUN 13 mg/dL (7-18); BUN/Creat Ratio 13.3 RATIO (10-20); Calcium,Total 9.5 mg/dL (8.5-10.1); Chloride 109 mmol/L (98-107); Cholesterol 106 mg/dL (200); Creatinine, Serum 0.98 mg/dL (0.55-1.02); EST Glomerular Filtration Rate 61 mL/min (>60); Est Glom Filt Rate - Afr Amer 74 mL/min (>60); Globulin 3.5 g/dL (2.2-4.2); Glucose 171 mg/dL (74-106); High Density Lipoprotein 44 mg/dL; Potassium 3.3 mmol/L (3.5-5.1); Protein, Total 6.7 g/dL (6.4-8.2); Sodium Level 141 mmol/L (136-145); Thyroid Stim Hormone (TSH) 1.36 uIU/mL (0.358-3.74); Triglycerides 136 mg/dL; Very Low Density Lipoprotein 27 mg/dL (5-40)
== END | disposition home or self-care (01) ==
PROVIDERS: PCP Family Medicine; Referring Provider Nurse Practitioner Family; Visit Provider Nurse Practitioner Family
DX: I12.9 Hypertensive chronic kidney disease with stage 1 through stage 4 chronic kidney disease, or unspecified chronic kidney disease (principal); E11.22 Type 2 diabetes mellitus with diabetic chronic kidney disease; N18.30 Chronic kidney disease, stage 3 unspecified; E78.5 Hyperlipidemia, unspecified
CPT/HCPCS: 36415; 80053; 80061; 82043; 82306; 82570; 84443

== ENCOUNTER → 2023-02-23 | Outpatient (CLI) | payer MEDICARE, MEDICAID, SELFPAY ==
[2023-02-23 12:45] VITALS: PULSE 104; PULSE 108; PULSE 110; PULSE 112; PULSE 113; PULSE 89; PULSE 91; O2SAT 92; O2SAT 93; O2SAT 94; O2SAT 95; O2SAT 96; O2SAT 97
--- NOTE | 2023-02-23 14:14 | PCM.PSN.6M ---
PSN 6 Minute Walk Test 6 Minute Walk Test 6 Minute Walk Test: 6 Minute Walk Test PSN:6-Minute Walk Test Start: 02/23/23 12:45 Freq: Status: Active Protocol: [id number] Document 02/23/23 12:45 MARYJANE (Rec: 02/23/23 12:47 [email or web address] [id number]) 6 Minute Walk Test Date Performed 02/23/23 Time Performed 12:30 Height 5 ft 4.5 in Weight: 103.419 kg Weight in Pounds 228.[address]: Roberto Crouch Assistive device used: None Pre-test Oxygen Delivery Method Room Air Pulse Ox 97 Pulse Rate (60-100) 91 Dyspnea Lencho Scale (0-10) 0 Exertion Lencho Scale (6-20) 6 1st minute Oxygen Delivery Method Room Air Pulse Ox 94 Pulse Rate (60-100) 104 H 2nd minute Oxygen Delivery Method Room Air Pulse Ox 92 Pulse Rate (60-100) 108 H 3rd minute Oxygen Delivery Method Room Air Pulse Ox 93 Pulse Rate (60-100) 108 H 4th minute Oxygen Delivery Method Room Air Pulse Ox 94 Pulse Rate (60-100) 113 H 5th minute Oxygen Delivery Method Room Air Pulse Ox 94 Pulse Rate (60-100) 110 H 6th minute Oxygen Delivery Method Room Air Pulse Ox 95 Pulse Rate (60-100) 112 H Dyspnea Lencho Scale (0-10) 1 Exertion Lnecho Scale (6-20) 13 Post-test Oxygen Delivery Method Room Air Pulse Ox 96 Pulse Rate (60-100) 89 Full Laps Walked 16 Partial Lap, Number of Tiles Walked 42 Total Distance Walked (ft) 986 Interpretation Interpretation: Patient was able to ambulate 986 feet over the course of 6 minutes on room air with no assist devices or breaks. The patient was able to maintain saturations, but did have a peak heart rate of 113 bpm. These findings are consistent with a cardiovascular limitation to exercise tolerance. Recommendations Recommendations: No supplemental oxygen is indicated at this time.
== END | disposition home or self-care (01) ==
LOC: PSN 12:10
PROVIDERS: PCP Family Medicine; Referring Provider Internal Medicine Critical Care Medicine; Visit Provider Internal Medicine Critical Care Medicine
DX: R06.00 Dyspnea, unspecified (principal)
CPT/HCPCS: 94618

== ENCOUNTER → 2023-05-11 | Outpatient (CLI) | payer MEDICARE, OTHER, SELFPAY ==
--- NOTE | 2023-05-11 11:00 | MRI_ITS ---
STUDY: MRI LUMBAR SPINE WITHOUT CONTRAST REASON FOR EXAM: Female, 62 years old. RADICULOPATHY TECHNIQUE: Standardized fat and water weighted pulse sequences were obtained in the sagittal and axial planes. COMPARISON: Lumbar spine x-rays September 09, 2022 FINDINGS: There are scattered interosseous lipomatous deposits. Low signal intensity on the T1-weighted image in the right pedicle and transverse process of L5 which increases in signal intensity on T2 and STIR imaging sequence possibly representing nondisplaced fracture. There is associated edema within the posterior paraspinous soft tissues T12-L1: Normal endplates. Normal disc height, desiccation and minimal annular bulge.. Normal bilateral facet joints. Normal central canal and bilateral lateral recesses. Normal bilateral intervertebral neural foramina. Normal lumbar lordosis. There is no substantial scoliosis. Normal conus medullaris that terminates at T12-L1 L1-2: Normal endplates. Normal disc height, hydration and morphology. Normal bilateral facet joints. Normal central canal and bilateral lateral recesses. Normal bilateral intervertebral neural foramina. L2-3: Normal endplates. Normal disc height, hydration and morphology. Normal bilateral facet joints. Normal central canal and bilateral lateral recesses. Normal bilateral intervertebral neural foramina. L3-4: Normal endplates. Normal disc height, hydration and morphology. Normal bilateral facet joints. Normal central canal and bilateral lateral recesses. Normal bilateral intervertebral neural foramina. L4-5: Normal endplates. Normal disc height, hydration and minor annular bulge. Facet arthropathy and mild thickening of ligamenta flava slightly more pronounced on the left. Normal central canal and bilateral lateral recesses. Mild right neural foraminal encroachment and moderate narrowing on the left. L5-S1: Grade 1 spondylolisthesis Normal endplates. Normal disc height, desiccation and minor bulging disc osteophyte complex.. Facet arthropathy. Normal central canal and bilateral lateral recesses. Mild bilateral neural foraminal encroachment Normal visualized sacral ala. . MRI/Spine Lumbar (Routine) IMPRESSION: Findings which may be consistent with nondisplaced fracture of the right pedicle and transverse process of L5. This may be further evaluated with CAT scan or bone scan if clinically warranted. Spinal stenosis at L4-5 slightly more pronounced on the left secondary to annular bulge and facet arthropathy. Minor bilateral neural foraminal encroachment at L5-S1 secondary to annular bulge and facet arthropathy Electronically Signed: Hubert Richards MD at 18:50 EST ,
--- OUTSIDE RECORDS SUMMARY | 2023-05-11 11:19 | XMS RPT_ITS | CCD ---
Author Name Unknown Address [address] [place] [address] Organization [facility] Care Team Providers Care Operator Catalyst Concentration Name Role Phone Adrienne KarthikJd Unavailable Unavailable Malys, Kate A Unavailable Unavailable Malys DO, Kate A Primary Care Provider Malys DO, Kate A Primary Care Provider MALYS, KATE A Primary Care Unavailable MARIELY GARCIA Referring Unavailable MALYS, KATE A Primary Care Unavailable Malys DO, Kate Primary Care Provider Malys DO, Kate Primary Care Provider MALYS, KATE Primary Care Unavailable CONSULT, GENERAL MEDICINE Consulting UnaTHOR Naqvi Admitting Unavailable THOR CRUZ Attending Unavailable THOR CRUZ Referring Unavailable MALYS, KATE Primary Care Unavailable THOR CRUZ Attending Unavailable THOR CRUZ Referring Unavailable Hussein Napier MD Unavailable [facility], [facility] Primary Care Provider Unav ailable NAPIER, HUSSEIN Attending Unavailable NAPIER, HUSSEIN Attending Unavailable NAPIER, HUSSEIN Referring [facility]available [facility]available NAPIER, HUSSEIN Attending Unavailable [facility] Primary Care Unavailable NAPIER, HUSSEIN Referring Unavailable NAPIER, HUSSEIN Attending Unavailable [facility] Primary Care Unavailable NAPIER, HUSSEIN Attending Unavailable ARON TAPIA Attending Unavailable THOR CRUZ Referring Unavailable MALYS, KATE Primary Care Unavailable THOR CRUZ Attending Unavailable THOR CRUZ Referring Unavailable MALYS, KATE Primary Care Unavailable THOR CRUZ Attending Unavailable MALYS, KATE Primary Care Unavailable SELF, SELF Referring Unavailable THOR CRUZ Attending Unavailable MALYS, KATE Primary Care Unavailable SELF, SELF Referring Unavailable ROJELIO MCGINNIS Attending Unavailable MALYS, KATE Primary Care Unavailable SELF, SELF Referring Unavailable SELF, SELF Referring Unavailable BOROFF, KARTHIK Attending Unavailable MALYS, KATE Primary Care Unavailable MCGINNIS, ROJELIO Attending Unavailable SELF, SELF Referring Unavailable MALYS, KATE Primary Care Unavailable SELF, SELF Referring Unavailable BOROFF, KARTHIK Attending Unavailable MALYS, KATE Primary Care Unavailable SELF, SELF Referring Unavailable BOROFF, KARTHIK Attending Unavailable MALYS, KATE Primary Care Unavailable EDGARDO OSMAN Attending Unavailable MALYS, KATE Primary Care Unavailable SELF, SELF Referring Unavailable SELF, SELF Referring Unavailable CRUZ, THOR Attending Unavailable MALYS, KATE Primary Care Unavailable EDGARDO OSMAN Attending Unavailable CRUZ, THOR Referring Unavailable MALYS, KATE Primary Care Unavailable SELF, SELF Referring Unavailable MCGINNIS, ROJELIO Attending Unavailable MALYS, KATE Primary Care Unavailable Allergies Allergy Classification Reported Allergen(s) Allergy Type Date of Onset Reaction(s) Facility (3 sources) Penicillin; Translations: [PENICILLIN] Drug Allergy 05-10-2015 [facility] (16 sources) Penicillins Propensity to adverse reactions to drug 05-10-2015 [facility] Medications Current Medications Medication Drug Class(es) Dates Sig (Normalized) Sig (Original) albuterol 0.83 mg/ml inhalation solution (20 sources) beta2-Adrenergic Agonist Start: 01-17-2022 take 2.5 mg by inhalation every four hours as needed albuterol (2.5 MG/3ML) 0.083% nebulizer solution Inhale 2.5 mg every 4 hours as needed. 0 01/17/2022 Active Completed/Discontinued Medications Medication Drug Class(es) Dates Sig (Normalized) Sig (Original) acetaminophen 32 mg/ml oral solution (3 sources) Start: 12-08-2022 End: 12-09-2022 take 650 mg by mouth every six hours, then take 4000 mg by mouth every twenty-four hours 650 mg, Oral, EVERY 6 HOURS, First dose on Thu12/08/22 at 1345, Until Discontinued Maximum dose of acetaminophen is 4000 mg from all sources in 24 hours. Post-op/Post-Proc Problems Active Problems Problem Classification Problem Date Documented Da te Episodic/Chronic Administrative/social admission (3 sources) Patient encounter status; Translations: [Dietary counseling and surveillance] Episodic Asthma (9 sources) Uncomplicated asthma; Translations: [Unspecified asthma, uncomplicated] Onset: 12-08-2022 12-09-2022 Chronic Chronic kidney disease (6 sources) Chronic renal insufficiency; Translations: [Chronic kidney disease, unspecified] Onset: 03-24-2022 03-24-2022 Chronic Congestive heart failure; nonhypertensive (6 sources) Congestive heart failure; Translations: [Heart failure, unspecified] Onset: 03-24-2022 03-24-2022 Chronic Diabetes mellitus with complications (1 source) Hyperglycemia due to type 2 diabetes mellitus; Translations: [Type 2 diabetes mellitus with hyperglycemia] Onset: 11-13-2022 11-13-2022 Chronic Diabetes mellitus without complication (20 sources) Type 2 diabetes mellitus; Translations: [Type 2 diabetes mellitus without complications] Onset: 05-17-2015 05-17-2015 Chronic Disorders of lipid metabolism (6 sources) Hyperlipidemia; Translations: [Hyperlipidemia, unspecified] Onset: 03-24-2022 03-24-2022 Chronic Esophageal disorders (20 sources) Rodriguez's esophagus; Translations: [Rodriguez's esophagus without dysplasia] Onset: 05-10-2015 05-10-2015 Chronic Essential hypertension (18 sources) Essential hypertension; Translations: [Essential (primary) hypertension] Onset: 05-17-2015 05-17-2015 Chronic Miscellaneous mental health disorders (3 sources) Binge eating disorder; Translations: [Binge eating disorder] Onset: 10-27-2022 10-27-2022 Chronic Mood disorders (3 sources) Recurrent major depression in full remission; Translations: [Major depressive disorder, recurrent, in full remission] Onset: 10-27-2022 10-27-2022 Chronic Other aftercare (4 sources) intermediate (current) use of insulin; Translations: [intermediate (current) use of insulin] Onset: 12-08-2022 Episodic Other diseases of kidney and ureters (10 sources) Renal mass; Translations: [Other specified disorders of kidney and ureter] Onset: 03-24-2022 03-24-2022 Chronic Other diseases of kidney and ureters (2 sources) Other specified disorders of kidney and ureter; Translations: [Other specified disorders of kidney and ureter] Onset: 03-24-2022 Chronic Other endocrine disorders (2 sources) Adrenal mass; Translations: [Other specified disorders of adrenal gland] 07-03-2022 Chronic Other endocrine disorders (2 sources) Other specified disorders of adrenal gland; Translations: [Other specified disorders of adrenal gland (HCC)] Onset: 03-06-2022 Chronic Other gastrointestinal disorders (1 source) Intestinal malabsorption; Translations: [Intestinal malabsorption, unspecified] 01-07-2023 Chronic Other gastrointestinal disorders (2 sources) Intestinal malabsorption, unspecified; Translations: [Intestinal malabsorption, unspecified] Onset: 01-07-2023 Chronic Other gastrointestinal disorders (7 sources) H/O: GIT by-pass; Translations: [Bariatric surgery status] Onset: 12-08-2022 12-09-2022 Episodic Other gastrointestinal disorders (4 sources) Bariatric surgery status; Translations: [Bariatric surgery status] Onset: 12-08-2022 Episodic Other hereditary and degenerative nervous system conditions (2 sources) Restless legs; Translations: [Restless legs syndrome] Onset: 05-17-2015 05-17-2015 Chronic Other lower respiratory disease (1 source) Lower respiratory tract infection; Translations: [Unspecified acute lower respiratory infection] Episodic Other lower respiratory disease (1 source) Unspecified acute lower respiratory infection; Translations: [Lower respiratory infection] Onset: 01-18-2022 Episodic Other nutritional; endocrine; and metabolic disorders (2 sources) Simple obesity ; Translations: [Other obesity due to excess calories] Onset: 05-17-2015 05-17-2015 Chronic Other nutritional; endocrine; and metabolic disorders (18 sources) Body mass index 40+ - severely obese; Translations: [Morbid (severe) obesity due to excess calories] Onset: 01-22-2021 Chronic Other nutritional; endocrine; and metabolic disorders (13 sources) Morbid obesity; Translations: [Morbid (severe) obesity due to excess calories] Onset: 11-13-2022 12-09-2022 Chronic Other nutritional; endocrine; and metabolic disorders (2 sources) Morbid (severe) obesity due to excess calories; Translations: [Morbid (severe) obesity due to excess calories] Onset: 01-22-2021 Chronic Other nutritional; endocrine; and metabolic disorders (2 sources) Obesity caused by energy imbalance; Translations: [Morbid (severe) obesity due to excess calories] Onset: 12-09-2022 12-09-2022 Chronic Residual codes; unclassified (15 sources) Obstructive sleep apnea syndrome; Translations: [Obstructive sleep apnea (adult) (pediatric)] Onset: 05-17-2015 05-17-2015 Chronic Residual codes; unclassified (2 sources) Obstructive sleep apnea (adult) (pediatric); Translations: [Obstructive sleep apnea (adult) (pediatric)] Onset: 12-08-2022 Chronic Residual codes; unclassified (6 sources) 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; Translations: [Dependence on other enabling machines and devices] Onset: 03-24-2022 03-24-2022 Chronic Respiratory failure; insufficiency; arrest (adult) (6 sources) Dependence on supplemental oxygen; Translations: [Dependence on supplemental oxygen] Onset: 03-24-2022 03-24-2022 Chronic Unclassified (1 source) Unknown / UNK(Unknown) Onset: 11-06-2017 Past or Other Problems Problem Classification Problem Date Documented Da te Episodic/Chronic Unclassified (1 source) K22.70 Onset: 11-06-2017 Results Test Name Value Interpretation Reference Range Facil ity Vital Signs Date Time Vital Sign Value Performing Clinician Facility 03-11-2023 13:34-0500 Body height 165.1 cm Rojelio Mcginnis CNP Work Phone: [facility] 03-11-2023 13:34-0500 Body mass index (BMI) [Ratio] 37.11 kg/m2 Rojelio Mcginnis SENIOR LOSS CONTROL SPECIALIST Work Phone: [facility] 03-11-2023 13:34-0500 Body weight 101.15 kg Rojelio Mcginnis CNP Work Phone: [facility] 03-11-2023 13:34-0500 Diastolic blood pressure 62 mm[Hg] Rojelio Mcginnis SENIOR LOSS CONTROL SPECIALIST Work Phone: [facility] 03-11-2023 13:34-0500 Heart rate 76 /min Rojelio Mcginnis SENIOR LOSS CONTROL SPECIALIST Work Phone: [facility] 03-11-2023 13:34-0500 Respiratory rate 21 /min oRjelio Mcginnis SENIOR LOSS CONTROL SPECIALIST Work Phone: [facility] 03-11-2023 13:34-0500 SaO2% (BldA) [Mass fraction] 95 % Rojelio Mcginnis SENIOR LOSS CONTROL SPECIALIST Work Phone: [facility] 03-11-2023 13:34-0500 Systolic blood pressure 116 mm[Hg] Rojelioyesica Mcginnis SENIOR LOSS CONTROL SPECIALIST Work Phone: [facility] [employer] [facility] 02-10-2023 13:04-0400 Body mass index (BMI) [Ratio] 38.97 kg/m2 Karthik Diallo RD Work Phone: [facility] 02-10-2023 13:04-0400 Body weight 106.[address] Work Phone: [facility] 01-22-2023 13:36-0400 Body height 162.6 cm Hussein Napier MD Work Phone: [facility] [employer] 01-22-2023 13:36-0400 Body mass index (BMI) [Ratio] 41.2 kg/m2 Hussein Napier MD Work Phone: [facility] 01-22-2023 13:36-0400 Body weight 108.86 kg Hussein Napier MD Work Phone: [facility] 01-07-2023 13:21-0400 Body height 165.1 cm Rojelio Mcginnis SENIOR LOSS CONTROL SPECIALIST Work Phone: [facility] 01-07-2023 13:21-0400 Body mass index (BMI) [Ratio] 41.17 kg/m2 Rojelio Mcginnis SENIOR LOSS CONTROL SPECIALIST Work Phone: [facility] 01-07-2023 13:21-0400 Body weight 112.22 kg Rojelio Mcginnis SENIOR LOSS CONTROL SPECIALIST Work Phone: [facility] 01-07-2023 13:21-0400 Diastolic blood pressure 60 mm[Hg] Rojelio Mcginnis SENIOR LOSS CONTROL SPECIALIST Work Phone: [facility] 01-07-2023 13:21-0400 Heart rate 90 /min Rojelio Mcignnis SENIOR LOSS CONTROL SPECIALIST Work Phone: [facility] 01-07-2023 13:21-0400 Respiratory rate 21 /min Rojelio Mcginnis SENIOR LOSS CONTROL SPECIALIST Work Phone: [facility] 01-07-2023 13:21-0400 SaO2% (BldA) [Mass fraction] 95 % Rojelio Mcginnis SENIOR LOSS CONTROL SPECIALIST Work Phone: [facility] 01-07-2023 13:21-0400 Systolic blood pressure 100 mm[Hg] Rojelio Mcginnis SENIOR LOSS CONTROL SPECIALIST Work Phone: [facility] 12-25-2022 13:46-0400 Body height 165.1 cm Thor Cruz DO Work Phone: [facility] 12-25-2022 13:46-0400 Body mass index (BMI) [Ratio] 41.93 kg/m2 Thor Cruz DO Work Phone: [facility] 12-25-2022 13:46-0400 Body weight 114.31 kg Thor Cruz Work Phone: [facility] 12-25-2022 13:46-0400 Diastolic blood pressure 69 mm[Hg] Thor Cruz Work Phone: [facility] 12-25-2022 13:46-0400 Heart rate 87 /min Thor Cruz DO Work Phone: [facility] 12-25-2022 13:46-0400 Systolic blood pressure 128 mm[Hg] Thor Cruz Work Phone: [facility] 12-09-2022 13:20-0400 Diastolic blood pressure 55 mm[Hg] Thor Cruz DO Work Phone: [facility] 12-09-2022 13:20-0400 Heart rate 97 /min Thor Cruz Work Phone: [facility] 12-09-2022 13:20-0400 Respiratory rate 18 /min Thor Cruz DO Work Phone: [facility] 12-09-2022 13:20-0400 SaO2% (BldA) [Mass fraction] 98 % Thor Cruz Work Phone: [facility] 12-09-2022 13:20-0400 Systolic blood pressure 117 mm[Hg] Thor Cruz Work Phone: [facility] 12-09-2022 11:50-0400 Body temperature 97.11 [degF] Thor Cruz DO Work Phone: [facility] 12-09-2022 04:00-0400 Body mass index (BMI) [Ratio] 47.23 kg/m2 Thor Cruz DO Work Phone: [facility] 12-09-2022 04:00-0400 Body weight 124.8 kg Thor Sweetie DO Work Phone: [facility] 12-08-2022 12:51-0400 Body height 162.6 cm Thor Cruz DO Work Phone: [facility] 11-13-2022 14:00-0400 Body height 162.6 cm Thor Sweetie DO Work Phone: [facility] 11-13-2022 14:00-0400 Body mass index (BMI) [Ratio] 48.23 kg/m2 Thor Sweetie HART Work Phone: [facility] 11-13-2022 14:00-0400 Body weight 127.46 kg Thor Cruz DO Work Phone: [facility] 11-13-2022 14:00-0400 Diastolic blood pressure 74 mm[Hg] Thor Sweetie HART Work Phone: [facility] 11-13-2022 14:00-0400 Heart rate 102 /min Thor Sweetie HART Work Phone: [facility] 11-13-2022 14:00-0400 SaO2% (BldA) [Mass fraction] 98 % Thor Sweetie HART Work Phone: [facility] 11-13-2022 14:00-0400 Systolic blood pressure 112 mm[Hg] Thor Cruz Work Phone: [facility] 10-21-2022 08:51-0400 Body mass index (BMI) [Ratio] 48.61 kg/m2 Karthik Diallo RD [facility] 10-21-2022 08:51-0400 Body weight 128.[address] Work Phone: [facility] [employer] [facility] 10-02-2022 09:07-0400 Body mass index (BMI) [Ratio] 49.44 kg/m2 Karthik Amayaoff RD Work Phone: [facility] [employer] [facility] 10-02-2022 09:07-0400 Body weight 130.[address] Work Phone: [facility] 09-11-2022 09:55-0400 Body height 162.6 cm Thor Cruz DO Work Phone: [facility] [employer] [facility] 09-11-2022 09:55-0400 Body mass index (BMI) [Ratio] 49.81 kg/m2 Thor Sweetie HART Work Phone: [employer] [facility] 09-11-2022 09:55-0400 Body weight 131.63 kg Thor Sweetie HART Work Phone: [facility] [employer] [facility] 09-11-2022 09:55-0400 Diastolic blood pressure 70 mm[Hg] Thor Sweetie HART Work Phone: [employer] [facility] 09-11-2022 09:55-0400 Heart rate 93 /min Thor Cruz DO Work Phone: [employer] [facility] 09-11-2022 09:55-0400 Respiratory rate 19 /min Thor Cruz DO Work Phone: [facility] [employer] [facility] 09-11-2022 09:55-0400 SaO2% (BldA) [Mass fraction] 95 % Thor Cruz DO Work Phone: [employer] [facility] 09-11-2022 09:55-0400 Systolic blood pressure 128 mm[Hg] Thor Sweetie HART [facility]: [email or web address] 07-03-2022 14:23-0500 Body height 162.6 cm Hussein Napier MD Work Phone: [facility] [employer] 07-03-2022 14:23-0500 Body mass index (BMI) [Ratio] 46.69 kg/m2 Hussein Napier MD Work Phone: [facility] 07-03-2022 14:23-0500 Body weight 123.38 kg Hussein Napier MD Work Phone: [facility] 01-17-2022 19:01-0400 Body temperature 97.3 [degF] Mariely Athy PA-C Work Phone: [facility] 01-17-2022 19:01-0400 Diastolic blood pressure 60 mm[Hg] Mariely Athy PA-C Work Phone: [facility] 01-17-2022 19:01-0400 Heart rate 72 /min Mariely Athy PA-C Work Phone: [facility] 01-17-2022 19:01-0400 Respiratory rate 22 /min Mariely Athy PA-C Work Phone: [facility] 01-17-2022 19:01-0400 SaO2% (BldA) [Mass fraction] 96 % Mariely Athy PA-C Work Phone: [facility] 01-17-2022 19:01-0400 Systolic blood pressure 128 mm[Hg] Mariely Athy PA-C Work Phone: [facility] Encounters Encounter Date Encounter Type Care Provider Facility Start: 03-11-2023 ambulatory ROJELIO MCGINNIS Merged with [facility] Start: 03-11-2023 End: 03-11-2023 Office outpatient visit 10 minutes Rojelio Mcginnis SENIOR LOSS CONTROL SPECIALIST Work Phone: [facility] Procedures Date Procedure Procedure Detail Performing Clinician Start: 12-09-2022 Gluc bld gluc mntr dev cleared fda spec home use Thor Cruz DO Work Phone: Start: 12-09-2022 Complete blood count with white cell differential, automated Thor Cruz DO Work Phone: Start: 12-09-2022 Gluc bld gluc mntr dev cleared fda spec home use Thor Cruz DO Work Phone: Start: 12-09-2022 Basic metabolic panel calcium total Thor Cruz DO Work Phone: Start: 12-09-2022 Complete blood count with white cell differential, automated Thor Cruz DO Work Phone: Start: 12-08-2022 Gluc bld gluc mntr dev cleared fda spec home use Thor Cruz DO Work Phone: Start: 12-08-2022 Gluc bld gluc mntr dev cleared fda spec home use Thor Cruz DO Work Phone: Start: 12-08-2022 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 Karthik Diallo RD Work Phone: Start: 12-08-2022 Basic metabolic panel calcium total Thor Cruz DO Work Phone: Start: 12-08-2022 End: 12-08-2022 Laps gstr rstcv px w/byp nader-en-y limb <150 cm Thor Galvez Cruz DO Work Phone: Start: 12-08-2022 Basic metabolic panel calcium total Thor Cruz DO Work Phone: Start: 12-08-2022 Blood group typing, RH phenotyping Thor Cruz DO Work Phone: Start: 09-26-2022 Lipid 1996 panel - Serum or Plasma Karthik Diallo RD Work Phone: Start: 08-25-2022 Mammography Hussein Napier MD Work Phone: Start: 07-03-2022 Metanephrines Hussein Napier MD Work Phone: Start: 01-29-2021 Lipid 1996 panel - Serum or Plasma Thor Cruz DO Work Phone: Plan of Treatment Date Care Activity Detail Author Start: 09-27-2027 Lipid panel LIPID SCREENING [facility] Start: 01-29-2026 Lipid panel LIPID SCREENING [facility] Start: 03-11-2024 Lipid panel LIPIDS [facility] Start: 12-30-2023 Creatinine measurement Creatinine [facility] Start: 09-27-2023 Lipid panel LIPIDS [facility] Start: 09-27-2023 Potassium [Moles/vol ume] in Serum or Plasma POTASSIUM [facility] Start: 09-09-2023 Hemoglobin A1c measurement HBA1C TEST [facility] Start: 08-26-2023 Screening for malign ant neoplasm of breast Mammogram [facility] Start: 08-12-2023 End: 08-12-2023 Patient encounter procedure 08/12/2023 1:00 PM EDT Appointment [facility] [address] [place] [phone] Karthik Diallo, RD [address] [place] [address] [facility] Start: 06-09-2023 End: 06-09-2023 Patient encounter procedure 06/09/2023 1:00 PM EST Office Visit [facility] [address] [place] [phone] Rojelio Mcginnis, SENIOR LOSS CONTROL SPECIALIST [address] [place] [id number] [facility] Start: 05-28-2023 End: 05-28-2023 Patient encounter procedure 05/28/2023 1:40 PM EST Office Visit [facility] [address] [place] [address] Hussein Napier MD [address] [facility] [place], [place] [id number] [facility] Start: 05-20-2023 End: 01-23-2024 MR Abdomen WO and W contrast IV MR abdomen w and wo contrast Imaging Routine Left renal mass Expected: 05/20/2023, Expires: 01/23/2024 [facility] Work Phone: Immunizations Immunization Date Immunization Notes Care Provider Radha cortes 12-31-2020 influenza virus vaccine, unspecified formulation Thor Cruz DO Work Phone: [facility] 08-02-2020 COVID-19 vaccine, mR LIDYA, Pfizer, 0.3 ML Thor Cruz DO Work Phone: [facility] 07-12-2020 COVID-19 vaccine, mR BOSE, Nadia, 0.3 ML Thor Sweetie DO Work Phone: [facility] Payers Date Payer Category Payer Medicare [id number] 2022 Medicare [id number] 2021 Medicaid [id number] 2021 Unknown JULIO LI OUR [id number] 2021-Present [address] [place] [address] [id number] 2020 Medicaid [id number] 2020 Medicaid [id number] 2016 Unknown [id number] 1958 Unknown [id number] [id number] 1958 Unknown [id number] [id number] 1958 Unknown [id number] [id number] 1958 Unknown [id number] [id number] 1958 Unknown [id number] [id number] 1958 Unknown [id number] [id number] 1958 Unknown [id number] [id number] 1958 Unknown [id number] [id number] 1958 Unknown [id number] [id number] 1958 Unknown [id number] [id number] 1958 Unknown [id number] [id number] 1958 Unknown [id number] [id number] 1958 Unknown [id number] [id number] 1958 Unknown [id number] [id number] 1958 Unknown [id number] Social History Date Type Detail Facility Start: 01-17-2022 End: 09-11-2022 Tobacco smoking status NHIS Ex-smoker [facility] Start: 05-04-1975 End: 05-04-2005 History of tobacco use Current smoker [facility] Start: 05-04-1975 End: 05-04-2005 History of tobacco use Cigarette Smoker [facility] Start: 01-17-2022 End: 01-07-2023 Cigarettes smoked current (pack per day) - Reported 2 [facility] Start: 01-17-2022 End: 09-11-2022 Tobacco use and exposure Smokeless tobacco non-user [facility] Start: 01-17-2022 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 (finding) [facility] Start: 1960 Sex Assigned At Not on file C [facility] Start: 01-07-2022 End: 01-22-2023 Exposure to SARS-CoV-2 (event) Not sure [facility] Start: 09-11-2022 End: 03-11-2023 Alcohol intake Current drinker of alcohol (finding) [facility] Start: 01-22-2021 Alcohol Comment once a year [facility] Start: 09-11-2022 End: 01-07-2023 Tobacco use panel [facility] Clinical Notes 01-17-2022 to 03-11-2023 Zohreh Hernández - 03/11/2023 1:15 PM Danna Mcginnis CNP - 03/11/2023 1:[address] - 02/10/2023 1:00 PM Vinny Napier MD - 01/22/2023 1:50 PM EDTLeonardo Instructions Note Date & Type Note Facility 03-11-2023 History of Present illness Narrative Office Visit Clinical Staff Note: Brief Weight History Pre Op: 281 lbs Last Visit: 247.4 lbs Today's: 223 lbs Total: 58 lbs lost [facility] FOLLOW UP NOTE Name: Nelia Barker Index Surgery Date of Surgery: 12/08/2022 Surgeon: Thor Cruz DO Surgical Procedure: RYGB Today's Visit: Wt Readings from Last 1 Encounters: 03/11/23 101.2 kg (223 lb) Body mass index is 37.11 kg/m . Last Visit: Wt Readings from Last 3 Encounters: 03/11/23 101.2 kg (223 lb) 02/10/23 106.2 kg (234 lb 3.2 oz) 01/07/23 112.2 kg (247 lb 6.4 oz) TELLER: She is here today for her 3 month follow up . She is tolerate phase 5 diet. She has seen nutrition at her 2 month follow up. She hasn't added bread into her diet. She is taking her bariatric vitamin. Labs done today. Reviewed what was completed. Protein intake is good. Water intake she knows she needs to work Denies any abdominal pain constipation diarrhea or dumping syndrome. She isn't able to exercise a lot due to lower back pain. She is seeing pain management. Are you attending any Support Groups? No attendance Current Outpatient Medications Medication Sig Dispense Refill atorvastatin 40 MG tablet Take by mouth. Cyclobenzaprine 5 MG tablet Take 1 tablet by mouth every 8 hours as needed. diltiazem 180 MG Cap SR 24HR capsule XL DULoxetine [address] Particles capsule DR Take 1 capsule by mouth daily. esomeprazole [address] capsule 2 times daily. Farxiga 10 MG tablet Take 1 tablet by mouth daily. Insulin Aspart 100 UNIT/ML injection As directed. lisinopril 40 MG tablet Take 1 tablet by mouth daily. metoprolol succinate 100 MG tablet XL Take 1 tablet by mouth daily. Multiple Vitamins-Minerals (BARIATRIC MULTIVITAMINS/IRON PO) Take 1 Dose by mouth daily. Bariatric Pal Multi ONE Chewable Pramipexole Dihydrochloride 1.5 MG tablet Take 1 tablet by mouth daily. Tresiba FlexTouch 200 UNIT/ML Solution Pen-injector injection INJECT 84 UNITS SUBCUTANEOUSLY DAILY zolpidem 5 MG tablet TAKE 1 TABLET BY MOUTH EVERYDAY AT BEDTIME Advair HFA 230-21 MCG/ACT Aerosol inhaler INHALE TWO (2) PUFFS BY MOUTH EVERY 12 HOURS (Patient not taking: Reported on 03/11/2023) Albuterol Sulfate 108 (90 Base) MCG/ACT Aerosol Powder, breath activated Inhale 2 puffs 4 times daily as needed for Shortness of Breath. (Patient not taking: Reported on 03/11/2023) Ondansetron 4 MG Tab Dispersible tablet Take 1 tablet by mouth every 8 hours as needed. (Patient not taking: Reported on 01/07/2023) 30 tablet 2 oxyCODONE 5 MG/5ML Solution oral solution Take 5 mL by mouth every 6 hours as needed for up to 6 days. 120 mL 0 oxygen gas Inhale 2 L As directed. (Patient not taking: Reported on 01/07/2023) No current facility-administered medications for this visit. Patient Active Problem List Diagnosis body mass index of 40.0-49.9 GERD (gastroesophageal reflux disease) Type 2 diabetes mellitus, with long-term current use of insulin Morbid obesity Benign hypertension DEVIN (obstructive sleep apnea) S/P Nader-en-Y gastric bypass Asthma Morbid (severe) obesity due to excess calories REVIEW OF SYSTEMS: CONSTITUTIONAL: Patient denies fevers, chills, sweats and weight changes. CARDIOVASCULAR: Patient denies chest pains, palpitations, orthopnea and paroxysmal nocturnal dyspnea. RESPIRATORY: No dyspnea on exertion, no wheezing or cough. GI: No nausea, vomiting, diarrhea, constipation, abdominal pain, hematochezia or melena. : No urinary hesitancy or dribbling. No nocturia or urinary frequency. No abnormal urethral discharge. DERMATOLOGIC: She does get skin irritation under abdominal apron. Is using cream > Suggest to try using compression clothing to help keep in place. PHYSICAL EXAM: PHYSICAL EXAMINATION: Visit Vitals BP 116/62 (BP Location: Left arm, BP Position: Sitting) Pulse 76 Resp 21 Ht 1.651 m (5' 5 ) Wt 101.2 kg (223 lb) SpO2 95% BMI 37.11 kg/m GENERAL: No apparent distress. Pt is alert and oriented x3. VITAL SIGNS: HR, BP, Temp; Normal. LUNGS: Clear to auscultation. HEART: Regular rate and rhythm without murmur. ABDOMEN: Soft, nontender, and nondistended. Positive bowel sounds. No hepatosplenomegaly was noted. EXTREMITIES: Without any cyanosis, clubbing, rash, lesions or edema. NEUROLOGIC: Cranial nerves II through XII are grossly intact. PSYCHIATRIC: Flat affect, but denies suicidal or homicidal ideations. SKIN: No ulceration or induration present. A/P: Normal post-OP course DISPOSITION: Return 1 year to Post-op follow up/ individual office visit EDUCATION: Pt encouraged to continue with positive lifestyle changes and daily/vitamin intake - Encouaged to increase water intake - Compression garments could be helpful REFERRALS: N/A LABS: - Today: Reviewed labs that are completed. Pending labs remain: CBC W DIFF, CMP, Vitamin B12, Iron/ TIBC, Lipid panel, TSH, Zinc, Folate, 25 Hydroxy, HBA1C. In 6 mo: CBC W DIFF, CMP, Vitamin B12, Iron/ TIBC, Lipid panel, TSH, Zinc, Folate, 25 Hydroxy and HBA1C Rojelio Mcginnis CNP Bariatric and Minimally Invasive General Surgery 16 minutes spent with patient on [id number] interaction, history/documentation, education, and coordination of care. documented in this encounter [facility] 02-10-2023 History of Present illness Narrative OUTPATIENT BARIATRIC POST-SX NUTRITION ASSESSMENT Referring Provider: Self, Self Nutrition Assessment Anthropometrics: Ht Readings from Last 1 Encounters: 01/07/23 1.651 m (5' 5 ) Wt Readings from Last 10 Encounters: 02/10/23 106.2 kg (234 lb 3.2 oz) 01/07/23 112.2 kg (247 lb 6.4 oz) 12/25/22 114.3 kg (252 lb) 12/09/22 124.8 kg (275 lb 2.2 oz) 11/18/22 127.5 kg (281 lb) 11/13/22 127.5 kg (281 lb) 10/21/22 128.5 kg (283 lb 3.2 oz) 10/02/22 130.6 kg (288 lb) 09/11/22 131.6 kg (290 lb 3.2 oz) 07/15/21 122.5 kg (270 lb) [place] body weight: 57 kg (125 lb 10.6 oz) Adjusted ideal body weight: 76.7 kg (169 lb 1.2 oz) Body mass index is 38.97 kg/m . Pre-surgical weight: 275 lbs on 12/08/2022*: s/p RYGB Total weight loss since sx= 41 lbs x 2 months (14.9% of pre-op BW) Estimated Energy Needs: Calories: 1425 kcals/day (25 kcal/kg IBW) Protein: 63-86 grams/day (1.1-1.5 gm/kg IBW) Vitamins/Minerals: Pt is taking all required vitamin & mineral supplements daily including: bariatric pal mv capsule with 45 mg iron and calcium citrate BID (600 MG)- from [place] 1. iron and calcium by >2 hours 2. Taking calcium twice per day 3. Meeting all bariatric [employer] recommendations Diet Recall: Meal What Time Breakfast Protein shake (premier protein) 8 am Snack Lunch Tuna packet with low fat hemphill 12 pm Snack Dinner Canned chicken and small baked potato with just salt and pepper 5 pm Snack Fluids 64 oz water and some un sweet tea and coffee (decaf) NA Current exercise regimen: Pt is exercising. (walking everyday) Post Surgery Nutrition Goals: 1. Eat 5-6x/day (include breakfast, lunch, dinner, and 2-3 snacks): Not MET 2. Consume adequate protein: MET 3. Limit sugar & sugar alcohols to no more than 10 gm per meal/snack: MET 4. Drink at least 64 ounces of hydrating fluid/day: MET 5. Eliminate carbonation and straws (caffeine if <2 months post-op and alcohol if <6 months post-op): MET 6. Exercise goal: a. 150 minutes of cardiovascular activity per week: Not MET b. 1-2 days of strength training: Not MET 7. Separate eating and drinking by 30 minutes: MET 8. Eat in this order: protein first, vegetable and fruit second and whole grain carbohydrates last: MET 9. Chew your food 20-30x per bite: Sometimes MET 10. Meals should last 20-30 minutes: Not MET Subjective comments: Ms. Nelia Barker is a 62 y.o. female here for a bariatric surgery post-op visit. Pt is 2 months post-op. Pt is doing great post-op. Pt is tolerating phase 4 of the post-op diet. Pt reports she has been following a soft diet and did not know she was allowed to start phase 5. She reports she is tolerating all foods on phase 4. She reports she has had 3 episodes of vomiting and sever indigestion since her surgery and she recognized instantly it was because she was eating too quickly or too much. She reports she has not had any episodes of dumping syndrome due to her reading labels and staying under 10 grams of sugar at a time. Pt set action items to focus on slowing down at meals and doing dime size bites to avoid further indigestion. Pt will also be trying different forms of physical activity and talking with physical therapy and her PCP on safe forms of strength training she can add to prevent muscle wasting. Pt and I reviewed the bariatric plate method and what is dumping syndrome today. Pt has been tolerating her vitamins and will be switching to a capsule due to not liking the taste of the chewable. Pt will follow up in 6 months. PMH: Past Medical History: Diagnosis Date Asthma Rodriguez esophagus Congestive heart failure Diabetes mellitus Essential hypertension, benign Fatty liver GERD (gastroesophageal reflux disease) Heart failure, diastolic Hyperlipidemia DEVIN (obstructive sleep apnea) Renal disease stage 3 PSH: Past Surgical History: Procedure Laterality Date BYPASS GASTRIC W/ NADER-EN-Y GASTROENTEROSTOMY LAPAROSCOPIC RO N/A 12/08/2022 Laterality: N/A; Surgeon: Thor Cruz DO; Location: [facility] EGD W/ BX N/A 03/14/2021 Laterality: N/A; Surgeon: Gallito Yates MD; Location: [facility] HEART CATHETERIZATION 2020 no stents RELEASE CARPAL TUNNEL Right 2001 TUBAL LIGATION 1996 LAP CHOLECYSTECTOMY Nutrition-Related Labs: Lab Results Component Value Date GLUCOSE 219 (H) 12/09/2022 GLUCOSE 173 (H) 12/09/2022 GLUCOSE 188 (H) 12/09/2022 HGBA1C 7.1 (H) 09/26/2022 SODIUM 134 (L) 12/09/2022 POTASSIUM 4.7 12/09/2022 PHOSPHORUS 4.5 12/08/2022 MAGNESIUM 1.7 12/08/2022 CHOLESTEROL 150 09/26/2022 TRIG 181 (H) 09/26/2022 HDL 42 09/26/2022 LDLCALC 72 09/26/2022 BP Readings from Last 3 Encounters: 01/07/23 100/60 12/25/22 128/69 12/09/22 117/55 Nutrition Diagnosis NC-1.4 Altered GI function related to surgical alteration of the gastrointestinal tract related to s/p RYGB on 12/08/2022. NB-2.1 Physical inactivity related to competing values as evidenced by pt interview. Nutrition Intervention Nutrition Goals: 1. Consume 1200 kcals/day through 5-6 small meals (B, L, D, and 2-3 snacks) 2. Consume 63-86 gm of protein/day 3. Limit all sugar & sugar alcohol intake to <10 grams per meal/snack 4. Consume at least 64 oz of hydrating fluid/day 5. Continue to eliminate all carbonation and use of straws (caffeine and alcohol as advised) 6. Eat off smaller plates and bowls 7. Take dime sized bites and chew food 20-30x per bite, or until it is a consistent texture 8. Meals need to last at least 20-30 minutes. Stop eating once you feel full 9. Separate food and fluids by 30 minutes. Do not drink with meals 10. Eat protein first, vegetables and fruits second, and whole grains last 11. Include 150-300 minutes of physical activity per week including strength training at least twice per week Monitoring & Evaluation 1. 8 month post-op appointment will be scheduled Time spent with pt: 40 minutes CALISTA Barba Registered Dietitian, Licensed Dietitian 02/10/23 documented in this encounter [facility] 01-22-2023 History of Present illness Narrative Images from the original note were not included. Hussein Napier MD 01/22/2023 at 1:51 PM Office follow up PATIENT NAME: Nelia Barker DATE OF : 1960 TODAY'S DATE: 01/22/2023 CHIEF COMPLAINT: Chief Complaint Patient presents with Follow-up Renal mass Subjective: Ms. Barker is a 62 y.o. female who presents to the office for follow up of adrenal nodule CT cryoabalation 03/24/22 MRI w and wo at [place] 06/2021 renal lesion and adrenal lesion are stable, some fat necrosis Doing well MRI 01/2023 FINDINGS: Kidneys: Symmetric size and enhancement. No hydronephrosis. Renal Lesions: Hypointense focus along the medial superior pole of the left kidney measuring 3.3 x 3.0 cm (series 5 image 15). This is heterogeneously hypointense on the T2-weighted images, with lack of enhancement centrally but with some irregular, thickened mural enhancement on the subtracted postcontrast images (series 102 image 36). In the superior pole of the left kidney, there is a lesion which is hyperintense on the T1-weighted images but without enhancement on the subtracted postcontrast images measuring 0.9 x 0.7 cm (series 9 image 38). Simple cyst is present in the inferior pole of the left kidney measuring 0.7 x 0.6 cm. No right renal lesion. Lymphadenopathy:None Liver: The liver is normal in size and contour. There is no drop in signal on in-phase or opposed-phase images to suggest fat or iron deposition. No focal liver lesion. Biliary tree: Status post cholecystectomy. No biliary dilatation. Spleen: Normal Adrenals:1.7 cm right adrenal nodule, without definite signal loss on the out of phase images Pancreas: Homogeneous enhancement without mass or peripancreatic fluid. Aorta: Normal caliber Visualized Osseous structures: Normal IMPRESSION: 1. Postablation changes in the superior pole the left kidney with areas of irregular, thickened mural enhancement worrisome for residual/recurrent neoplasm. 2. Subcentimeter left renal cysts including a hemorrhagic left renal cyst. 3. Right adrenal nodule indeterminate characteristics by MRI. Recommend adrenal mass protocol CT with washout calculations. Report Dictated on Electronically Signed By: Abran Henson MD Electronically Signed Date/Time: 01/08/2023 8:59 AM EDT Needs repeat cryo? Dr Zurita opinion Spoke with patient to review results of recent MRI abdomen at the request of Dr. Zurita. Patient is s/p left renal cryoablation on 03/24/22 for left renal mass. I discussed with the patient that there is a small area of enhancement seen, however Dr. Zurita feels that intervention is not necessary at this time. Patient has follow up with Urology on 01/22/23. Dr. Zurita is recommending repeat imaging in approximately 6 months. Will wait for urology's input and go from there. Patient thanked me for calling. Review of Systems Medications Current Outpatient Medications: amLODIPine (Norvasc) 10 MG tablet, Take 10 mg by mouth in the morning., Disp: , Rfl: atorvastatin (Lipitor) 40 MG tablet, Take by mouth., Disp: , Rfl: cyclobenzaprine (Flexeril) 5 MG tablet, Take 5 mg by mouth every 8 hours as needed., Disp: , Rfl: dapagliflozin (Farxiga) 10 MG, , Disp: , Rfl: dilTIAZem ER (Tiazac) 180 MG 24 hr capsule, , Disp: , Rfl: DULoxetine (Cymbalta) [address] capsule, Take 60 mg by mouth in the morning., Disp: , Rfl: esomeprazole (NexIUM) [address] capsule, , Disp: , Rfl: insulin degludec (Tresiba FlexTouch) 200 UNIT/ML injection, , Disp: , Rfl: insulin degludec (Tresiba) 100 UNIT/ML injection, Inject 54 Units under the skin in the morning., Disp: , Rfl: lisinopril 40 MG tablet, Take 40 mg by mouth in the morning., Disp: , Rfl: metoprolol succinate XL (Toprol-XL) 100 MG 24 hr tablet, Take 100 mg by mouth in the morning., Disp: , Rfl: pramipexole (Mirapex) 0.5 MG tablet, Take 0.5 mg by mouth in the morning and 0.5 mg at noon and 0.5 mg in the evening., Disp: , Rfl: zolpidem (Ambien) 5 MG tablet, Take 1 tablet by mouth at bedtime., Disp: , Rfl: albuterol (2.5 MG/3ML) 0.083% nebulizer solution, Inhale 2.5 mg every 4 hours as needed., Disp: , Rfl: Albuterol Sulfate 108 (90 Base) MCG/ACT aerosol powder , Inhale 2 puffs as needed., Disp: , Rfl: atenolol (Tenormin) 100 MG tablet, Take 100 mg by mouth in the morning., Disp: , Rfl: cholecalciferol (Vitamin D-3) 1.25 MG (96483 UT) capsule, TAKE 1 CAPSULE BY MOUTH TWICE WEEKLY, Disp: , Rfl: dexAMETHasone (Decadron) 1 MG tablet, Take 1 tablet (1 mg) by mouth Once for 1 dose. At 10pm the night prior to labs being drawn, Disp: 1 tablet, Rfl: 0 DULAGLUTIDE SC, Inject under the skin., Disp: , Rfl: ergocalciferol (Vitamin D-2) 1.25 MG (38477 UT) capsule, Take 50,000 Units by mouth once a week., Disp: , Rfl: esomeprazole (NexIUM) [address] capsule, Take 20 mg by mouth., Disp: , Rfl: ferrous sulfate 325 (65 Fe) MG tablet, Take 1 tablet by mouth in the morning., Disp: , Rfl: furosemide (Lasix) 20 MG tablet, Take 20 mg by mouth in the morning., Disp: , Rfl: glipiZIDE (Glucotrol) 10 MG tablet, Take 10 mg by mouth., Disp: , Rfl: insulin aspart protamine-insulin aspart (NovoLOG Mix 70-30) (70-30) 100 UNIT/ML injection, Inject under the skin 4 times daily (with meals and nightly). Sliding scale, Disp: , Rfl: liraglutide (Victoza) 18 MG/3ML injection, Inject under the skin in the morning., Disp: , Rfl: Loratadine 10 MG capsule, Take by mouth., Disp: , Rfl: magnesium oxide 500 MG tablet, Take 1,000 mg by mouth in the morning., Disp: , Rfl: metFORMIN (Glucophage) 1000 MG tablet, Take 1,000 mg by mouth with breakfast and with evening meal., Disp: , Rfl: Mounjaro 5 MG/0.5ML solution pen-injector, Inject 5 mg under the skin 1 (one) time per week., Disp: , Rfl: oxybutynin (Ditropan) 5 MG tablet, Take 5 mg by mouth in the morning and 5 mg at noon and 5 mg in the evening., Disp: , Rfl: oxygen (O2) gas, Inhale 2 L., Disp: , Rfl: lvdxhnkpdejuhox-zvefqvv-rqqyMKIlmu n (Mytussin DAC) 30-10-100 MG/5ML solution, Take by mouth., Disp: , Rfl: Vitals: Ht 5' 4 (1.626 m) Wt 240 lb (109 kg) BMI 41.20 kg/m Physical Exam Physical Exam LABS: No results found for: PSA No results found for: TESTOSTERONE Lab Results Component Value Date WBC 15.3 (H) 03/24/2022 HGB 11.9 03/24/2022 HCT 38.5 03/24/2022 MCV 78.5 (L) 03/24/2022 PLT 367 03/24/2022 Lab Results Component Value Date GLUCOSE 79 03/24/2022 CALCIUM 8.7 03/24/2022 NA 139 03/24/2022 K 4.2 03/24/2022 CO2 31 (H) 03/24/2022 CL 103 03/24/2022 BUN 19 (H) 03/24/2022 CREATININE 1.11 (H) 12/29/2022 No components found for: LABURIN @LASTPROCPOC@ Pathology: Radiology: Impression/Plan: Nelia was seen today for follow-up. Diagnoses and all orders for this visit: Left renal mass (Primary) - MR abdomen w and wo contrast; Future Adrenal nodule (HCC) Per Dr Zurita rec, will hold on repeat cryo at this time Repeat MRI abd w and wo in 4 months Follow up in about 4 months (around 05/24/2023). Hussein Napier MD 01/22/23 1:51 PM documented in this encounter [facility] 01-12-2023 Telephone encounter Note Spoke with patient to review results of recent MRI abdomen at the request of Dr. Zurita. Patient is s/p left renal cryoablation on 03/24/22 for left renal mass. I discussed with the patient that there is a small area of enhancement seen, however Dr. Zurita feels that intervention is not necessary at this time. Patient has follow up with Urology on 01/22/23. Dr. Zuirta is recommending repeat imaging in approximately 6 months. Will wait for urology's input and go from there. Patient thanked me for calling. [employer] Phone: 01-12-2023 Miscellaneous Notes Spoke with patient to review results of recent MRI abdomen at the request of Dr. Zurita. Patient is s/p left renal cryoablation on 03/24/22 for left renal mass. I discussed with the patient that there is a small area of enhancement seen, however Dr. Zurita feels that intervention is not necessary at this time. Patient has follow up with Urology on 01/22/23. Dr. Zurita is recommending repeat imaging in approximately 6 months. Will wait for urology's input and go from there. Patient thanked me for calling. documented in this encounter [employer] 01-07-2023 History of Present illness Narrative Office Visit Clinical Staff Note: Brief Weight History Pre Op: 281 lbs Today's: 247.4 lbs Total: 33.6 lbs lost Brief History for Provider: Abdominal Pain? Not at this time Nausea/ Vomiting? Not at this time Fluid Intake? 50-55 ounces daily Protein Intake? Supplementing with protein shakes Taking Vitamins? Daily Exercising? Doing walks of the room, increasing activity as tolerated Any concerns? Some constipation BARIATRIC SURGERY CLINIC FOLLOW UP NOTE Name: Nelia Barker Index Surgery Date of Surgery: 12/08/2022 Surgeon: Thor Cruz DO Surgical Procedure: RYGB Wt Readings from Last 1 Encounters: 01/07/23 112.2 kg (247 lb 6.4 oz) Body mass index is 41.17 kg/m . Last Visit: Wt Readings from Last 3 Encounters: 01/07/23 112.2 kg (247 lb 6.4 oz) 12/25/22 114.3 kg (252 lb) 12/09/22 124.8 kg (275 lb 2.2 oz) TELLER: Here today for her 1 month follow s/p RYGB. She is doing well . Has struggled with getting her 64 ounces of fluids in. She feels that she has more energy and feels that she can do more things. She is on pureed diet and ready for soft diet. She denies any abdominal pain, dumping syndrome or diarrhea. She has had a few incidence of constipation. She is taking vitamins. Bariatric complete. She is walking for exercise. She is hoping to get off blood pressures medicine. Current Outpatient Medications Medication Sig Dispense Refill Advair HFA 230-21 MCG/ACT Aerosol inhaler INHALE TWO (2) PUFFS BY MOUTH EVERY 12 HOURS Albuterol Sulfate 108 (90 Base) MCG/ACT Aerosol Powder, breath activated Inhale 2 puffs 4 times daily as needed for Shortness of Breath. atorvastatin 40 MG tablet Take by mouth. Cyclobenzaprine 5 MG tablet Take 1 tablet by mouth every 8 hours as needed. diltiazem 180 MG Cap SR 24HR capsule XL DULoxetine [address] Particles capsule DR Take 1 capsule by mouth daily. esomeprazole [address] capsule 2 times daily. Farxiga 10 MG tablet Take 1 tablet by mouth daily. Insulin Aspart 100 UNIT/ML injection As directed. lisinopril 40 MG tablet Take 1 tablet by mouth daily. metoprolol succinate 100 MG tablet XL Take 1 tablet by mouth daily. Multiple Vitamins-Minerals (BARIATRIC MULTIVITAMINS/IRON PO) Take 1 Dose by mouth daily. Bariatric Pal Multi ONE Chewable Pramipexole Dihydrochloride 1.5 MG tablet Take 1 tablet by mouth daily. zolpidem 5 MG tablet TAKE 1 TABLET BY MOUTH EVERYDAY AT BEDTIME Ondansetron 4 MG Tab Dispersible tablet Take 1 tablet by mouth every 8 hours as needed. (Patient not taking: Reported on 01/07/2023) 30 tablet 2 oxyCODONE 5 MG/5ML Solution oral solution Take 5 mL by mouth every 6 hours as needed for up to 6 days. 120 mL 0 oxygen gas Inhale 2 L As directed. (Patient not taking: Reported on 01/07/2023) No current facility-administered medications for this visit. Patient Active Problem List Diagnosis body mass index of 40.0-49.9 GERD (gastroesophageal reflux disease) Type 2 diabetes mellitus, with long-term current use of insulin Morbid obesity Benign hypertension DEVIN (obstructive sleep apnea) S/P Nader-en-Y gastric bypass Asthma Morbid (severe) obesity due to excess calories REVIEW OF SYSTEMS: CONSTITUTIONAL: Patient denies fevers, chills, sweats and weight changes. EYES: Patient denies any visual symptoms. EARS, NOSE, AND THROAT: No difficulties with hearing. No symptoms of rhinitis or sore throat. CARDIOVASCULAR: Patient denies chest pains, palpitations, orthopnea and paroxysmal nocturnal dyspnea. RESPIRATORY: No dyspnea on exertion, no wheezing or cough. GI: No nausea, vomiting, diarrhea, constipation, abdominal pain, hematochezia or melena. : No urinary hesitancy or dribbling. No nocturia or urinary frequency. No abnormal urethral discharge. MUSCULOSKELETAL: No myalgias or arthralgias. NEUROLOGIC: No chronic headaches, no seizures. Patient denies numbness, tingling or weakness. PSYCHIATRIC: Patient denies problems with mood disturbance. No problems with anxiety. ENDOCRINE: No excessive urination or excessive thirst. DERMATOLOGIC: Patient denies any rashes or skin changes. PHYSICAL EXAM: PHYSICAL EXAMINATION: Visit Vitals BP 100/60 (BP Location: Left arm, BP Position: Sitting) Pulse 90 Resp 21 Ht 1.651 m (5' 5 ) Wt 112.2 kg (247 lb 6.4 oz) SpO2 95% BMI 41.17 kg/m GENERAL: No apparent distress. Pt is alert and oriented x3. VITAL SIGNS: HR, BP, Temp; Normal LUNGS: Clear to auscultation. HEART: Regular rate and rhythm without murmur. ABDOMEN: Soft, nontender, and nondistended. Positive bowel sounds. No hepatosplenomegaly was noted. SKIN: No ulceration or induration present. A/P: Normal post-OP course DISPOSITION: Return for 3 month follow up EDUCATION: Pt encouraged to continue with positive lifestyle changes and daily/vitamin intake REFERRALS: N/A LABS: - In 3 ,months CBC W DIFF, CMP, Vitamin B12, Iron/ TIBC, Lipid panel, TSH, Zinc, Folate, 25 Hydroxy, HBA1C. In 6 mo: CBC W DIFF, CMP, Vitamin B12, Iron/ TIBC, Lipid panel, TSH, Zinc, Folate, 25 Hydroxy and HBA1C ? Rojelio Mcginnis CNP Bariatric and Minimally Invasive General Surgery 15 minutes spent with patient on [id number] interaction, history/documentation, education, and coordination of care. documented in this encounter [facility] 12-29-2022 Telephone encounter Note Pt called to verify the phone number for [facility] in [facility]. States the number we gave her is out of service. I read her the phone number from [employer] in [place] and it is the same phone number. Pt thanked me and states that's the number she tried calling. States she will just go to the address and see if their open today. [facility] [employer] 12-29-2022 Miscellaneous Notes Pt called to verify the phone number for [facility] in [facility]. States the number we gave her is out of service. I read her the phone number from [employer] in [place] and it is the same phone number. Pt thanked me and states that's the number she tried calling. States she will just go to the address and see if their open today. documented in this encounter [facility] [employer] 12-25-2022 History of Present illness Narrative BARIATRIC CLINIC POST OP VISIT KELI Pickens is seen today for a post op visit. She is doing well and reports no problems at this time. She denies abdominal pain, nausea or vomiting. Current Outpatient Medications Medication Sig Dispense Refill Advair HFA 230-21 MCG/ACT Aerosol inhaler INHALE TWO (2) PUFFS BY MOUTH EVERY 12 HOURS Albuterol Sulfate 108 (90 Base) MCG/ACT Aerosol Powder, breath activated Inhale 2 puffs 4 times daily as needed for Shortness of Breath. atorvastatin 40 MG tablet Take by mouth. Cyclobenzaprine 5 MG tablet Take 1 tablet by mouth every 8 hours as needed. diltiazem 180 MG Cap SR 24HR capsule XL DULoxetine [address] Particles capsule DR Take 1 capsule by mouth daily. esomeprazole [address] capsule 2 times daily. Farxiga 10 MG tablet Take 1 tablet by mouth daily. Insulin Aspart 100 UNIT/ML injection As directed. lisinopril 40 MG tablet Take 1 tablet by mouth daily. metoprolol succinate 100 MG tablet XL Take 1 tablet by mouth daily. Ondansetron 4 MG Tab Dispersible tablet Take 1 tablet by mouth every 8 hours as needed. 30 tablet 2 oxygen gas Inhale 2 L As directed. Pramipexole Dihydrochloride 1.5 MG tablet Take 1 tablet by mouth daily. zolpidem 5 MG tablet TAKE 1 TABLET BY MOUTH EVERYDAY AT BEDTIME oxyCODONE 5 MG/5ML Solution oral solution Take 5 mL by mouth every 6 hours as needed for up to 6 days. 120 mL 0 No current facility-administered medications for this visit. PHYSICAL EXAM: General Appearance: in no apparent distress and well developed and well nourished. Abdomen: soft, non-tender. Bowel sounds normal. No masses, no organomegaly Incision: healing well, clean and dry Extremities: extremities normal, atraumatic, no cyanosis or edema DATA REVIEW: Lab Results Component Value Date WBC 15.9 (H) 12/09/2022 HGB 12.2 12/09/2022 HCT 38.4 12/09/2022 MCV 82.5 12/09/2022 PLATELET 241 12/09/2022 Lab Results Component Value Date SODIUM 134 (L) 12/09/2022 POTASSIUM 4.7 12/09/2022 CO2 25 12/09/2022 CALCIUM 8.3 (L) 12/09/2022 BUN 25 (H) 12/09/2022 GLUCOSE 219 (H) 12/09/2022 ALBUMIN 3.4 (L) 09/26/2022 BILITOTAL 0.3 09/26/2022 ALKPHOS 91 09/26/2022 AST 17 09/26/2022 ALT 17 09/26/2022 ANIONGAP 6 (L) 12/09/2022 Lab Results Component Value Date IRON 50 09/26/2022 TIBC 465 (H) 01/29/2021 Lab Results Component Value Date CHOLESTEROL 150 09/26/2022 CHOLESTEROL 149 01/29/2021 HDL 42 09/26/2022 HDL 37 (L) 01/29/2021 LDLCALC 72 09/26/2022 LDLCALC 74 01/29/2021 TRIG 181 (H) 09/26/2022 TRIG 188 (H) 01/29/2021 Lab Results Component Value Date [id number] 70.5 09/26/2022 Lab Results Component Value Date FOLATE 10.8 09/26/2022 Lab Results Component Value Date [id number] 169.7 09/26/2022 IMPRESSION: S/P RYGB PLAN: DISPOSITION: Return in 2 weeks for follow up visit EDUCATION: Pt encouraged to continue with positive lifestyle changes and take vitamins daily Start exercising Start vitamins Advance to pureed diet Thor Crzu DO documented in this encounter [facility] 12-09-2022 Miscellaneous Notes Pt leaves the floor at this time ambulatory accompanied by her sister and Talia AL, going home. IV removed, VS stable, discharge instructions and medications reviewed with pt, cell phone and technology program manager and sealed [id number] package and all other belongings sent with pt. Problem: Patient Care Overview Goal: Plan of Care Review Outcome: Adequate for Discharge Goal: Individualization & Mutuality Outcome: Adequate for Discharge Goal: Discharge Needs Assessment Outcome: Adequate for Discharge Goal: Interdisciplinary Rounds/Family Conf Outcome: Adequate for Discharge Problem: Skin Integrity Impairment, Risk/Actual (Adult) Goal: Identify Related Risk Factors and Signs and Symptoms Description: Related risk factors and signs and symptoms are identified upon initiation of Human Response Clinical Practice Guideline (CPG) Outcome: Adequate for Discharge Goal: Skin Integrity/Wound Healing Description: Patient will demonstrate the desired outcomes by discharge/transition of care. Outcome: Adequate for Discharge Assessment unchanged from previous unless otherwise noted. Prior assessment unchanged, call light within reach. Patient appears asleep at this time, respirations even and unlabored. Call light within reach. Associated Problem(s): S/P Nader-en-Y gastric bypass Per Bariatric Surgery Pain relief IS Increase activity Associated Problem(s): Type 2 diabetes mellitus, with long-term current use of insulin Continue with SSI Accuchecks ac/hs Diabetic diet Screening A1C level Associated Problem(s): DEVIN (obstructive sleep apnea) Continue with CPAP/BIPAP therapy Continuous pulse oximetry and telemetry monitoring Associated Problem(s): GERD (gastroesophageal reflux disease) Continue PPI daily Associated Problem(s): Benign hypertension Continue with outpatient therapy Add prn for sbp >160 Associated Problem(s): Asthma Continue with aerosol breathing treatments Approached for PT evaluation. Patient s/p bariatric surgery this date by Dr. Cruz. RN currently in with patient. Patient awake and alert but reports double vision at this time. Not yet ready to participate with PT. Will follow up tomorrow. Discharged from PACU in stable condition. Transported via bed to room 268. Bed placed in lowest position. Call light within reach. Report given to Rashawn PASCUAL. Sister at bedside. I certify that this patient requires inpatient services at this time. I anticipate the expected length of stay will include at least two midnights. Current treatment plan includes pain and nausea control. Plans for post hospitalization care will be discharge to home. Operative Report DATE OF SERVICE: 12/08/2022 NAME: Nelia Barker CSN: [id number] PRE OP DIAGNOSES: Morbid obesity with DM POST OP DIAGNOSES: Morbid obesity with DM INDICATION FOR PROCEDURE: This patient is a pleasant 62 y.o. female suffering from morbid obesity and its comorbidities. After being seen in the clinic, She was found to be an appropriate candidate for a laparoscopic Nader-en-Y gastric bypass. OPERATIONS PERFORMED: Laparoscopic Nader-en-Y gastric bypass, robotic assisted, interpretation of ICG for perfusion SURGEON: Thor Cruz DO FITTER AND TURNER: Surgical Staff: Jig Bore Tool Maker: Samanta Reyes RN; Cammy Elise RN Refractory Products Supervisor Spot Checker: Taylor Caruso Child Care: Viktor Rubin ANESTHESIA: GETA ESTIMATED BLOOD LOSS IN MLS: 20 COMPLICATIONS: None SPECIMEN: None PREOPERATIVE NOTE: The contemplated operative procedure, risks, benefits and alternatives to this procedure have been discussed with this patient and/or legal sales and marketing representative. The patient and/or legal sales and marketing representative acknowledge(s) understanding of the above and consent(s) to the procedure. OPERATIVE PROCEDURE: The patient was given intravenous antibiotics, sequential stockings, subcutaneous heparin in the preoperative area. After informed consent, the patient was transferred to the operating room, placed in a supine position, and underwent general anesthesia. The abdomen was prepped and draped in the usual sterile fashion using ChloraPrep. Next a timeout was obtained that revealed the correct patient, position, and laterality of the procedure. Once this was done, a 1 cm transverse incision was made approximately 15 cm below the xiphoid and approximately 2 cm to the left of the midline. A 5 mm scope was then inserted into the abdomen under direct visualization without difficulty. The abdomen was then insufflated with CO2 to a pressure of 15 mmHg. An angled laparoscope was then inserted and additional ports were placed. 2 left-sided 8 mm trochars were placed under direct visualization. This was then followed by a 12 mm right-sided trocar and another 8 mm air seal trocar. The patient was then placed in 20 of Trendelenburg and the da Latasha robot was docked to the patient in the usual fashion. I then took my position at the surgical consult. The liver was then retracted superiorly medially revealing the anterior border of the erich and the freehold liver retractor system was anchored at this point and then to the anterior abdominal wall superiorly and right lateral to provide adequate liver retraction. The calibration tube was then passed by anesthesia into the stomach and the stomach was suctioned. Following this, I measure proximally 5 cm from the GE junction along the lesser curve of the stomach using the aid of the calibration tube. Stomach was grasped and elevated and a vessel sealing device was used to create a retrogastric tunnel. I then began to transect the stomach at this point to the angle of Hiss using the calibration tube as a guide. I was able to completely transect the stomach and create the upper gastric pouch using multiple loads on the 60 mm SureForm staper. At this point, 2 mL of ICG was injected intravenously to confirm adequate perfusion, which was confirmed at both the pouch and the distal gastric remnant. I then directed my attention to the omentum, which was split using vessel sealing device at the transverse colon. The transverse colon was then elevated to identify the ligament of Treitz, and once identified, the small bowel was run from the ligament of Treitz 100 centimeters distally. This was then brought to the gastric pouch in an anticolic, antigastric fashion. It was then secured to the staple line of the upper gastric pouch using a running 2-0 PDS barbed suture. Following this, a gastrotomy and enterotomy were created using the cautery scissors, approximately 2 cm in length. The posterior portion of the anastomosis was created used a 20 mm fire with a blue load. The anterior defect was then closed in a 2 layers performed using 2-0 PDS barbed suture in a running fashion with the inner layer and an outer layer Lembert style suture. Following this, I then grasped the small bowel to the left of the gastrojejunostomy and dissected a window in the mesentery. This allowed me to divide the BP limb from the Nader limb using a white load on the SureForm 60 mm stapler. Once this was completed, a leak test was completed using 60 mL of saline mixed with 8 mL of ICG. Flow was seen through the anastomosis and no leak was identified. The ICG was then suctioned and the tube removed. The Nader limb was then run 150 cm and brought to the BP limb. At this point a side to side anastomosis was created using a white load on the 60 mm SureForm stapler. The common enterotomy was then closed using a running 2-0 PDS barbed suture and the mesenteric defect was closed with a 2-0 PDS barbed suture as well. The freehold liver retraction system was then taken down and removed from the patient. The fascia of the 12 mm trocar was closed in a posterior fashion using a 2-0 Vicryl suture in a figure of 8 fashion. The da Latasha robot was then undocked and the remaining ports removed after the abdomen was desufflated and skin incisions were then closed with 4-0 Monocryl in a subcuticular fashion and skin glue was then applied over the top the incisions. All counts were correct at the end of the procedure. The patient tolerated the procedure well and was taken to the PACU for recovery. Thor Cruz DO 12:16 PM documented in this encounter [facility] 12-09-2022 Nurse Note Pt leaves the floor at this time ambulatory accompanied by her sister and Talia SERVANDO, going home. IV removed, VS stable, discharge instructions and medications reviewed with pt, cell phone and technology program manager and sealed [id number] package and all other belongings sent with pt. [facility] 12-09-2022 Plan of care note Problem: Patient Care Overview Goal: Plan of Care Review Outcome: Adequate for Discharge Goal: Individualization & Mutuality Outcome: Adequate for Discharge Goal: Discharge Needs Assessment Outcome: Adequate for Discharge Goal: Interdisciplinary Rounds/Family Conf Outcome: Adequate for Discharge Problem: Skin Integrity Impairment, Risk/Actual (Adult) Goal: Identify Related Risk Factors and Signs and Symptoms Description: Related risk factors and signs and symptoms are identified upon initiation of Human Response Clinical Practice Guideline (CPG) Outcome: Adequate for Discharge Goal: Skin Integrity/Wound Healing Description: Patient will demonstrate the desired outcomes by discharge/transition of care. Outcome: Adequate for Discharge [facility] 12-09-2022 Hospital course Narrative Discharge Summary Name: Nelia Barker Age: 62 y.o. Birthday: 1960 Admit Date: 12/08/2022 6:33 AM Discharge Date: 12/09/22 Discharge Time: 1223 Discharge Unit: [facility] Admission Information Admitting Physician: Thor Cruz DO Discharge Information Discharge Physician: Thor Cruz DO Problem List Active Hospital Problems Diagnosis S/P Nader-en-Y gastric bypass Morbid (severe) obesity due to excess calories Morbid obesity Benign hypertension DEVIN (obstructive sleep apnea) Asthma Type 2 diabetes mellitus, with long-term current use of insulin GERD (gastroesophageal reflux disease) Resolved Hospital Problems No resolved problems to display. Brief Summary of Hospital Course for Discharge Summary: Nelia Barker was admitted to the hospital following her procedure. For full operative details please see the operative note. she was placed on the med/surg floor and started on a diet. her labs and vitals were monitored. her pain and nausea were controlled with medication. On POD 1 she was deemed stable for discharge. Brief Summary of Consults for Discharge Summary: Brief Summary of Procedures and Imaging for Discharge Summary: Summary of last selected lab results and date obtained: Lab Results Component Value Date WBC 15.9 (H) 12/09/2022 HGB 12.2 12/09/2022 HCT 38.4 12/09/2022 PLATELET 241 12/09/2022 MCV 82.5 12/09/2022 Lab Results Component Value Date SODIUM 134 (L) 12/09/2022 POTASSIUM 4.7 12/09/2022 CHLORIDE 103 12/09/2022 CO2 25 12/09/2022 BUN 25 (H) 12/09/2022 CREATSERUM 1.50 (H) 12/09/2022 GLUCOSE 188 (H) 12/09/2022 Lab Results Component Value Date ALT 17 09/26/2022 AST 17 09/26/2022 ALKPHOS 91 09/26/2022 BILITOTAL 0.3 09/26/2022 Brief Summary of Labs for Discharge Summary: No discharge procedures on file. Current Outpatient Meds: Medication List for when you go home CONTINUE taking these medications Advair HFA 230-21 MCG/ACT AERO inhaler INHALE TWO (2) PUFFS BY MOUTH EVERY 12 HOURS Generic drug: Fluticasone-Salmeterol Albuterol Sulfate 108 (90 Base) MCG/ACT AEPB Inhale 2 puffs 4 times daily as needed for Shortness of Breath. Atorvastatin 40 MG TABS Take by mouth. Commonly known as: LIPITOR Cyclobenzaprine 5 MG TABS Take 1 tablet by mouth every 8 hours as needed. Commonly known as: FLEXERIL Diltiazem 180 MG cap XR capsule XL Commonly known as: CARDIZEM CD DULoxetine [address] capsule DR Take 1 capsule by mouth daily. Commonly known as: CYMBALTA esomeprazole [address] capsule 2 times daily. Commonly known as: NEXIUM Farxiga 10 MG TABS Take 1 tablet by mouth daily. Generic drug: dapagliflozin Insulin Aspart 100 UNIT/ML injection As directed. lisinopril 40 MG TABS Take 1 tablet by mouth daily. Commonly known as: PRINIVIL Metoprolol succinate 100 MG tablet XL Take 1 tablet by mouth daily. Commonly known as: TOPROL-XL Ondansetron 4 MG ODT tablet Take 1 tablet by mouth every 8 hours as needed. Doctor's comments: Do not fill until day of surgery Commonly known as: ZOFRAN-ODT For diagnoses: body mass index of 40.0-49.9 oxyCODONE 5 MG/5ML SOLN oral solution Take 5 mL by mouth every 6 hours as needed for up to 6 days. Doctor's comments: Do not fill until day of surgery Commonly known as: ROXICODONE For diagnoses: body mass index of 40.0-49.9 oxygen gas Inhale 2 L As directed. Pramipexole Dihydrochloride 1.5 MG TABS Take 1 tablet by mouth daily. Zolpidem 5 MG TABS TAKE 1 TABLET BY MOUTH EVERYDAY AT BEDTIME Commonly known as: AMBIEN STOP taking these medications acetaminophen 500 MG TABS Commonly known as: TYLENOL Drisdol 1.25 MG (99156 UT) CAPS Generic drug: ergocalciferol FeroSul 325 (65 Fe) MG TABS Generic drug: ferrous sulfate furOSEmide 20 MG TABS Commonly known as: LASIX glipiZIDE 10 MG tablet regular release Commonly known as: GLUCOTROL Magnesium Oxide -Mg Supplement 500 MG TABS TRESIBA SC Trulicity 4.5 MG/0.5ML SOPN Generic drug: Dulaglutide vitamin D3 1.25 MG (40881 UT) CAPS Follow-up: No follow-up provider specified. Upcoming Appointments (up to five)-Some appointments for Medical Center outpatient clinics or diagnostic testing locations are not displayed below Provider Department Dept Phone 12/25/2022 1:45 PM Thor Cruz [facility] [phone] 02/09/2023 1:00 PM Karthik Diallo [facility] [phone] documented in this encounter [facility] 12-09-2022 Hospital Discharge instructions Thor Cruz DO - 12/09/2022 12:23 PM EDT Nelia Barker 1960 PRINCIPAL DIAGNOSIS: Morbid Obesity OTHER DIAGNOSES: Principal Problem: S/P Nader-en-Y gastric bypass Active Problems: GERD (gastroesophageal reflux disease) Type 2 diabetes mellitus, with long-term current use of insulin Morbid obesity Benign hypertension DEVIN (obstructive sleep apnea) Asthma Morbid (severe) obesity due to excess calories Primary Care: Kate Spencer Other Providers: Procedures while hospitalized: Laparoscopic nader en y gastric bypass Wound care: You may shower and wash your abdomen with mild soap and water. Pat incisions to dry. Do not soak in a bath or pool for at least 2 weeks. Your incisions are closed with dissolvable stitches and skin glue. The glue will peel off on its own after about 1 week. Activity: You may walk and climb stairs as tolerated. You should not lie or sit down for more than 1 hour at a time except for when sleeping at night. Activity is important to prevent blood clots. No heavy lifting of objects greater than 15 lbs. [address] or returning to work until you no longer require narcotic pain medications. Diet: Follow your diet as instructed in the diet handbook Remember to drink at least 64 oz of liquids per day and try to take in 40-60 grams of protein. Avoid straws and carbonated beverages. Take small sips every couple of minutes. Your water bottle is your best friend and you shouldn t go anywhere without it! Warning: If you experience severe pain, fever over 101 F, redness or drainage from incisions, nausea/vomiting that lasts more than 12 hours, rapid heart rate or shortness of breath, call your surgeon immediately. You do not need to begin taking your vitamins until instructed by your surgeon at your first follow-up visit. Please consult your medical doctor regarding adjusting your medications after surgery (particularly diabetic and blood pressure medications). Follow up with Dr. Curz at your scheduled visit or call for an earlier appointment if having issues or concerns. documented in this encounter [facility] 12-09-2022 Nurse Note Assessment unchanged from previous unless otherwise noted. [facility] 12-09-2022 History of Present illness Narrative INPATIENT POST BARIATRIC SX NUTRITION ASSESSMENT Ms. Nelia Barker is a 62 y.o. female was admitted to [facility] for: 1. body mass index of 40.0-49.9 2. Type 2 diabetes mellitus without complication, with long-term current use of insulin 3. Preop testing Nutrition Assessment Subjective Assessment: Pt is POD #1 from LRYGB w/ Dr. Cruz with a presurgical weight of 275 lbs 2.2 oz. Spoke with pt today to discuss nutrition discharge plans. Pt is tolerating Phase I of the bariatric diet well. Pt is tracking fluid intake and total since surgery is 24 oz with a goal of 40 oz total prior to discharge. Pt will follow up with dietitian in ~2 months and plans to take bariatricpal MV w/ 45 mg iron, calcium citrate BID. Protein needs specific to CKD Stage 3b protein recommendation reinforced today was 60-66 grams per day based on 1.0-1.2 grams/kg IBW. Educated pt regarding the followin. Phases of the Bariatric Post-op diet and how to transition 2. Goals for adequate fluid intake 3. Vitamin and mineral supplements post-op: No need to add these into daily regimen until approved by surgeon 4. Bariatric nutrition goals: avoiding carbonation, caffeine, alcohol; <10 gms sugar per meal; small sips/bites, 1/4 - 1/2 cup portions at each meal; take 20-30 minutes per meal; how to consume adequate protein and specific protein goal Pt was provided with: 1. RYGB and Sleeve Gastrectomy Discharge Nutrition Therapy (NCM) 2. Bariatric and/or Clinical RD contact information Pt agreeable to all recommendations, nutrition goals, and nutrition plan for discharge. Anthropometrics: Ht Readings from Last 1 Encounters: 12/08/22 1.626 m (5' 4 ) Wt Readings from Last 10 Encounters: 12/09/22 124.8 kg (275 lb 2.2 oz) 11/18/22 127.5 kg (281 lb) 11/13/22 127.5 kg (281 lb) 10/21/22 128.5 kg (283 lb 3.2 oz) 10/02/22 130.6 kg (288 lb) 09/11/22 131.6 kg (290 lb 3.2 oz) 07/15/21 122.5 kg (270 lb) 06/05/21 122.5 kg (270 lb) 05/29/21 122.5 kg (270 lb) 04/24/21 123.8 kg (273 lb) [place] body weight: 54.7 kg (120 lb 9.5 oz) Adjusted ideal body weight: 82.7 kg (182 lb 6.5 oz) Body mass index is 47.23 kg/m . EER: Calories: 1368 kcal/day (25 kcal/kg IBW) Protein: 60-66 gm/day (1.1-1.2 gm/kg IBW) Fluid: >64 oz/day Current Diet Orders Procedures DIET LIQUID Bariatric Clear Liquid Diet Standing Status: Standing Number of Occurrences: 1 Nutrition-Related Hx: Appetite: fair Nausea: No Vomiting: No Diarrhea: No PMH: Past Medical History: Diagnosis Date Asthma Rodriguez esophagus Congestive heart failure Diabetes mellitus Essential hypertension, benign Fatty liver GERD (gastroesophageal reflux disease) Heart failure, diastolic Hyperlipidemia DEVIN (obstructive sleep apnea) Renal disease stage 3 PSH: Past Surgical History: Procedure Laterality Date BYPASS GASTRIC W/ NADER-EN-Y GASTROENTEROSTOMY LAPAROSCOPIC RO N/A 12/08/2022 Laterality: N/A; Surgeon: Thor Cruz DO; Location: [facility] OR EGD W/ BX N/A 03/14/2021 Laterality: N/A; Surgeon: Gallito Yates MD; Location: [facility] ONT ENDOSCOPY HEART CATHETERIZATION 2020 no stents RELEASE CARPAL TUNNEL Right 2000 TUBAL LIGATION 1996 LAP CHOLECYSTECTOMY Nutrition-Related Labs: Lab Results Component Value Date GLUCOSE 188 (H) 12/09/2022 GLUCOSE 238 (H) 12/08/2022 GLUCOSE 213 (H) 12/08/2022 HGBA1C 7.1 (H) 09/26/2022 SODIUM 134 (L) 12/09/2022 POTASSIUM 4.7 12/09/2022 MAGNESIUM 1.7 12/08/2022 PHOSPHORUS 4.5 12/08/2022 CALCIUM 8.3 (L) 12/09/2022 ALBUMIN 3.4 (L) 09/26/2022 TP 7.3 09/26/2022 BUN 25 (H) 12/09/2022 CREATSERUM 1.50 (H) 12/09/2022 AST 17 09/26/2022 ALT 17 09/26/2022 HGB 11.5 (L) 12/09/2022 HCT 35.5 (L) 12/09/2022 IRON 50 09/26/2022 WBC 13.9 (H) 12/09/2022 RBC 4.43 12/09/2022 B12 707 09/26/2022 [id number] 70.5 09/26/2022 FOLATE 10.8 09/26/2022 Nutrition Diagnosis NI-1.2 Inadequate energy intake related to recent bariatric sx as evidenced by bariatric clear liquid diet. NC-1.4 Altered GI function related to alteration to structure of GI track as evidenced by recent bariatric sx: LRYGB. Intervention Provided nutrition education as described above Monitoring & Evaluation 1. Monitor patient weight, labs, PO intake and tolerance to diet 2. Patient verbalized acknowledgement that follow up visits with a dietitian can be scheduled outpatient & knows to place call to RD or bariatric clinic to set up appointments as needed/desired 3. Patient to call RD, bariatric clinic, or surgeon should any issues, concerns, or questions arise after discharge CALISTA Willard Registered Dietitian, Licensed Dietitian 12/09/22 12/09/22 0840 Time In/Out Time In 0840 Time Out 0853 Total Visit Time 13 minutes Total Treatment Time (skilled, billable minutes) 13 minutes Initial Evaluation/Screen Completed? yes PT Evaluation and Treatment Time PT Evaluation (Low) Time Entry 13 Home Setting Residence ([place]) Lives With child(james) (adult daugher and her s/o) Number of stairs to enter home 1+1 Stair Railings at Home entry - no rail Mobility Equipment Available none used Previous Level of Function Prior level ADL Overview Independent with all ADLs Bed Mobility/Transfers independent Ambulation Skills independent Assistive Device none used Level of Ambulation community PRIOR LEVEL AM-[facility] Basic Mobility Inpatient Short Form Turning over in bed 4 - No Assistance Sitting/standing from chair 4 - No Assistance Moving from lying on back to sitting 4 - No Assistance Moving to and from bed to chair 4 - No Assistance Walk in hospital room 4 - No Assistance Climbing 3-5 steps with a railing 4 - No Assistance PRIOR LEVEL AM-PAC Mobility Raw Score 24 PRIOR LEVEL AM-PAC Mobility Functional Limitation/Modifier 0.00% Prior Functional Impairment in Basic Mobility General Pain Documentation (Adult, OB, Peds) Presence of Pain denies pain/discomfort Presence of Pain Score (Auto-calculated) 0 Cognition Overall Cognitive Status WFL Speech Speech no gross deficits noted RLE Assessment RLE Assessment WFL LLE Assessment LLE Assessment WFL Sitting Balance Static Sitting-Level of Assistance Independent Dynamic Sitting-Level of Assistance Independent Standing Balance Static Standing-Level of Assistance Independent Dynamic Standing-Level of Assistance Independent Rolling/Turning Mobility [place] Level: Rolling/Turning independent Skilled Intervention/Details: Rolling/Turning education completed for proper log roll technique; pt completes without difficulty Supine to Sit Mobility [place] Level: Supine->Sit independent Sit to Stand Transfer [place] Level: Sit->Stand independent Stand to Sit Transfer [place] Level: Stand->Sit independent Gait Assessment [place] Level: Gait independent Ambulation Distance (Feet) 600 Skilled Intervention/Details - Gait gait speed and pattern WFL Stairs Assessment [place] Level: Stair Negotiation (denies stair training intervention, reports no difficulty at baseline and demonstrates strength and ROM appropriate for task) CURRENT [facility] Basic Mobility Inpatient Short Form Turning over in bed 4 - No Assistance Sitting/standing from chair 4 - No Assistance Moving from lying on back to sitting 4 - No Assistance Moving to and from bed to chair 4 - No Assistance Walk in hospital room 4 - No Assistance Climbing 3-5 steps with a railing 4 - No Assistance CURRENT [facility] Mobility Raw Score 24 CURRENT [facility] Mobility Functional Limitation/Modifier 0.00% Currently Impaired in Basic Mobility - [facility] Clinical Impression Continue care plan no Co-evaluation/co-treatment performed? No simultaneous skilled care performed Criteria for Skilled Therapeutic Interventions Met (PT Eval) no problems identified which require skilled intervention Therapy Frequency no therapy warranted Discharge Destination Recommendation Home Barriers to discharge home None Anticipated Equipment Needs at Discharge (PT Eval) none Eval Complexity Assessment History Components Moderate (1-2 personal factors and/or comorbidities) Examination of Body System(s) Components Low (Addressing 1-2 elements) Clinical Presentation Stable - unchanging or predictable (Low) Clinical Decision Making (complexity) Low Plan Plan for next session PT eval only Activity Recommendations for outside of rehab session ambulate hallway x 5-6x/day without AD Past Medical History: Diagnosis Date Asthma Rodriguez esophagus Congestive heart failure Diabetes mellitus Essential hypertension, benign Fatty liver GERD (gastroesophageal reflux disease) Heart failure, diastolic Hyperlipidemia DEVIN (obstructive sleep apnea) Renal disease stage 3 Past Surgical History: Procedure Laterality Date BYPASS GASTRIC W/ NADER-EN-Y GASTROENTEROSTOMY LAPAROSCOPIC RO N/A 12/08/2022 Laterality: N/A; Surgeon: Thor Cruz DO; Location: [facility] OR EGD W/ BX N/A 03/14/2021 Laterality: N/A; Surgeon: Gallito Yates MD; Location: [facility] ENDOSCOPY HEART CATHETERIZATION 2020 no stents RELEASE CARPAL TUNNEL Right 2000 TUBAL LIGATION 1996 LAP CHOLECYSTECTOMY PT Assessment: Patient is a pleasant 62 yo female presenting to [facility] s/p lap nader-en-y gastric bypass 12/08/[address] Cruz. Pt reports they are independent at baseline and deny concerns with functional mobility. Upon evaluation, pt presents with functional strength, ROM and gait. Pt demonstrated safe ambulation up to 600 ft trial with no AD, no LOB, and vitals maintained WFL. PT educated patient on abdominal precautions and abdominal binder and provided instruction for log roll technique. Instructed patient on implementation of walking program and appropriate progression. Identified modifications to ADLs in order to maintain abdominal precautions. Assisted pt up to bathroom for standing self care tasks at sink, pt completes without difficulty. All questions answered and pt endorses feeling confident to return home. She is currently presenting at reported functional baseline and does not require skilled PT services at this time. PT to sign off. Marguerite Rodriguez PT, DPT 12/09/2022 Chart review completed, visit with Ms Barker. She states she is doing well since her surgery yesterday. Ms Barker lives in a mobile home with her daughter and the daughters boyfriend. She states that she is independent. She has home O2- but does not use it very often, a nebulizer and a CPAP. Ms Barker states that she follows with her PCP and can afford her medications. Ms Barker states that she plans to return home at discharge and denies need for any post discharge assistance. Please contact the social studies teacher if needs arise. documented in this encounter [facility] 12-09-2022 Consult note Associated Order (s): IP CONSULT TO GENERAL MEDICINE Consultation Consult Date/Time: 12/09/22 8:05 AM Consulting Physician: Sweetie Reason for Consultation: Medical Management Hospital Course: Patient presented to [facility] for planned surgery with Dr. Cruz. Unfortunately, the patient has a history of morbid obesity. She was being followed in the outpatient setting and it was therefore recommended to consider surgical intervention. The patient was agreeable and therefore presented for surgery this morning including laparoscopic bariatric surgery. Prior to presentation, the patient denied all reports of chest pain, SOB, N/V/D, abdominal pain, dysuria, unusual skin rashes or lesion. Currently they are resting in bed in no acute distress at this time. Patient's past history including gastroesophageal reflux disease, of smoking alcohol or drug use. Asthma, diabetes, hypertension, fatty liver and obstructive sleep apnea. There is no history of smoking alcohol or drug use. Patient is being evaluated postoperatively. She is afebrile. Vitals are stable. She is on 4 L nasal cannula Oxygen. Objective: Patient Active Problem List Diagnosis Date Noted Morbid obesity 12/08/2022 Benign hypertension 12/08/2022 DEVIN (obstructive sleep apnea) 12/08/2022 S/P Nader-en-Y gastric bypass 12/08/2022 Asthma 12/08/2022 Type 2 diabetes mellitus, with long-term current use of insulin 11/13/2022 GERD (gastroesophageal reflux disease) 01/23/2021 Added automatically from request for surgery [id number] body mass index of 40.0-49.9 01/22/2021 Past Medical History: Diagnosis Date Asthma Rodriguez esophagus Congestive heart failure Diabetes mellitus Essential hypertension, benign Fatty liver GERD (gastroesophageal reflux disease) Heart failure, diastolic Hyperlipidemia DEVIN (obstructive sleep apnea) Renal disease stage 3 Past Surgical History: Procedure Laterality Date EGD W/ BX N/A 03/14/2021 Laterality: N/A; Surgeon: Gallito Yates MD; Location: [facility] ENDOSCOPY HEART CATHETERIZATION 2020 no stents RELEASE CARPAL TUNNEL Right 2000 TUBAL LIGATION 1996 LAP CHOLECYSTECTOMY Social History Tobacco Use Smoking status: Former Packs/day: 2.00 Years: 30.00 Total pack years: 60.00 Types: Cigarettes Start date: 1975 Quit date: 2006 Years since quittin.6 Smokeless tobacco: Never Substance Use Topics Alcohol use: Yes Comment: once a year Family History Problem Relation Age of Onset Anesth Problems Mother mom prolonged sedation, ponv and hallucinating for 2 weeks Bleeding or Clotting Problems Father Medications Prior to Admission Medication Sig Dispense Refill Last Dose acetaminophen 500 MG tablet Take 1 tablet by mouth every 6 hours as needed for Mild Pain. 12/08/2022 atorvastatin 40 MG tablet Take by mouth. 12/07/2022 Cyclobenzaprine 5 MG tablet Take 1 tablet by mouth every 8 hours as needed. 12/07/2022 diltiazem 180 MG Cap SR 24HR capsule XL 12/07/[address] Particles capsule DR Take 1 capsule by mouth daily. 12/07/[address]ome[address] capsule 2 times daily. 12/08/2022 Farxiga 10 MG tablet Take 1 tablet by mouth daily. 12/07/2022 furOSEmide 20 MG tablet Take 1 tablet by mouth daily. 1 to 2 tablets daily 12/07/2022 glipiZIDE 10 MG tablet regular release Take 2 tablets by mouth 2 times daily. 12/07/2022 Insulin Aspart 100 UNIT/ML injection As directed. 12/07/2022 Insulin Degludec (TRESIBA SC) Inject 84 Units under the skin daily. 12/08/2022 lisinopril 40 MG tablet Take 1 tablet by mouth daily. 12/07/2022 metoprolol succinate 100 MG tablet XL Take 1 tablet by mouth daily. 12/08/2022 Pramipexole Dihydrochloride 1.5 MG tablet Take 1 tablet by mouth daily. 12/07/2022 zolpidem 5 MG tablet TAKE 1 TABLET BY MOUTH EVERYDAY AT BEDTIME 12/07/2022 Advair HFA 230-21 MCG/ACT Aerosol inhaler INHALE TWO (2) PUFFS BY MOUTH EVERY 12 HOURS More than a month Albuterol Sulfate 108 (90 Base) MCG/ACT Aerosol Powder, breath activated Inhale 2 puffs 4 times daily as needed for Shortness of Breath. More than a month Cholecalciferol (vitamin D3) 1.25 MG (15291 UT) capsule TAKE 1 CAPSULE BY MOUTH TWICE WEEKLY 11/30/2022 ergocalciferol (Drisdol) 1.25 MG (31130 UT) capsule 1 capsule. FeroSul 325 (65 Fe) MG tablet TAKE 1 TABLET BY MOUTH EVERY DAY 30 tablet 0 11/30/2022 Magnesium Oxide 500 MG tablet Take 2 tablets by mouth daily. Ondansetron 4 MG Tab Dispersible tablet Take 1 tablet by mouth every 8 hours as needed. 30 tablet 2 oxyCODONE 5 MG/5ML Solution oral solution Take 5 mL by mouth every 6 hours as needed for up to 6 days. 120 mL 0 oxygen gas Inhale 2 L As directed. Trulicity 4.5 MG/0.5ML Solution Pen-injector INJECT 0.5 ML SUBCUTANEOUSLY EVERY WEEK 11/26/2022 Allergies Allergen Reactions Penicillins Hives Review of Systems: Ten systems reviewed and found to be negative unless otherwise stated in the history and present illness. PHYSICAL EXAM: Patient Vitals for the past 8 hrs: BP Temp Temp src Pulse Resp SpO2 Height Weight 12/08/22 1415 152/70 -- -- 98 -- 95 % -- -- 12/08/22 1400 148/70 -- -- 95 -- -- -- -- 12/08/22 1345 143/68 -- -- 97 -- 97 % -- -- 12/08/22 1330 139/64 97.8 F (36.6 C) Temporal 97 19 93 % -- -- 12/08/22 1316 123/57 -- -- -- -- 94 % -- -- 12/08/22 1314 -- -- -- 101 24 94 % -- -- 12/08/22 1313 -- -- -- 100 21 95 % -- -- 12/08/22 1312 -- -- -- 100 16 97 % -- -- 12/08/22 1311 -- -- -- 101 21 97 % -- -- 12/08/22 1310 122/58 -- -- 101 20 95 % -- -- 12/08/22 1309 -- -- -- 101 23 95 % -- -- 12/08/22 1308 -- -- -- 100 13 95 % -- -- 12/08/22 1307 -- -- -- 99 11 94 % -- -- 12/08/22 1306 -- -- -- 99 15 94 % -- -- 12/08/22 1305 121/59 -- -- 99 12 95 % -- -- 12/08/22 1304 -- -- -- 100 (!) 26 95 % -- -- 12/08/22 1303 -- -- -- 100 18 95 % -- -- 12/08/22 1302 121/57 -- -- 100 (!) 26 94 % -- -- 12/08/22 1301 -- -- -- 100 (!) 27 93 % -- -- 12/08/22 1300 -- -- -- 99 23 94 % -- -- 12/08/22 1259 -- -- -- 98 (!) 26 95 % -- -- 12/08/22 1258 -- -- -- 97 22 94 % -- -- 12/08/22 1257 -- -- -- 98 23 93 % -- -- 12/08/22 1256 -- -- -- 98 21 95 % -- -- 12/08/22 1255 132/64 -- -- 99 19 96 % -- -- 12/08/22 1254 -- -- -- 100 22 98 % -- -- 12/08/22 1253 -- -- -- 100 (!) 25 95 % -- -- 12/08/22 1252 -- -- -- 100 23 95 % -- -- 12/08/22 1251 -- -- -- 98 19 98 % 1.626 m (5' 4 ) 127.5 kg (281 lb) 12/08/22 1250 131/68 -- -- 99 20 99 % -- -- 12/08/22 1249 -- -- -- 100 18 97 % -- -- 12/08/22 1248 -- -- -- 100 22 98 % -- -- 12/08/22 1247 -- -- -- 101 24 96 % -- -- 12/08/22 1246 -- -- -- 101 22 96 % -- -- 12/08/22 1245 129/62 -- -- 101 24 96 % -- -- 12/08/22 1244 -- -- -- 100 23 96 % -- -- 12/08/22 1243 -- -- -- 100 15 96 % -- -- 12/08/22 1242 -- -- -- 100 16 96 % -- -- 12/08/22 1241 -- -- -- 100 15 96 % -- -- 12/08/22 1240 -- -- -- 102 -- 96 % -- -- 12/08/22 1239 137/61 97.9 F (36.6 C) Temporal 104 15 95 % -- -- 12/08/22 0800 -- -- -- -- -- -- 1.626 m (5' 4 ) -- 12/08/22 0730 120/59 97.3 F (36.3 C) Temporal 90 16 95 % -- -- General: Patient resting comfortably. Awake. No acute distress speaking in 3 word sentences with no conversational defecit HEENT: Normalcephalic, atraumatic. Pupils equal, round, reactive, to light and accomodation B/L. Bilateral nares patent without obvious drainage. Oral mucosa moist, pink, intact without ulcers or lesions. Neck: No JVD, no thyromegaly, no anterior or posterior lymphadenopathy. Cardiovascular: Regular rate and rhythm, without murmurs, rubs, or gallops. Respiratory: Bilateral Upper and Lower Lobes anterior and posteriorly without wheezes, rales, or rhonchi Abdomen: Soft, rounded, non-tender. Bowel sounds present x4 quadrants. No rebound. No organomegaly or masses noted upon deep palpation. Extremities: No edema, clubbing or cyanosis, pulses palpable 2+ distally. Skin: Warm, Dry, Intact. No obvious rashes or lesions noted. Neuro: Cranial nerves 2-12 grossly intact. No focal defiects noted on seated neuro examination. Diagnostics: Lab Results Component Value Date WBC 15.7 (H) 12/08/2022 HGB 12.9 12/08/2022 HCT 40.3 12/08/2022 PLATELET 265 12/08/2022 MCV 81.2 12/08/2022 @LASTMAGNESIUM(1D,2)@ Lab Results Component Value Date INR 0.88 11/24/2022 PT 12.0 11/24/2022 Lab Results Component Value Date CREATSERUM 1.60 (H) 12/08/2022 BUN 21 (H) 12/08/2022 SODIUM 135 (L) 12/08/2022 POTASSIUM 4.1 12/08/2022 CHLORIDE 101 12/08/2022 CO2 26 12/08/2022 No results found for: SPGRVTYUR , SPECGRAVUR , GLUCOSEURINE , BILIRUBINURI , KETONESURINE , BLOODURINE , PHURINE , NITRITEURINE , NITRITESURIN , LEUKOCESTUR , WBCURINE , RBCURINE , BACTERIAURIN Impression and Plan: Present on Admission: Morbid obesity GERD (gastroesophageal reflux disease) Type 2 diabetes mellitus, with long-term current use of insulin Benign hypertension DEVIN (obstructive sleep apnea) S/P Nader-en-Y gastric bypass Asthma Asthma Continue with aerosol breathing treatments Benign hypertension Continue with outpatient therapy Add prn for sbp >160 GERD (gastroesophageal reflux disease) Continue PPI daily DEVIN (obstructive sleep apnea) Continue with CPAP/BIPAP therapy Continuous pulse oximetry and telemetry monitoring Type 2 diabetes mellitus, with long-term current use of insulin Continue with SSI Accuchecks ac/hs Diabetic diet Screening A1C level S/P Nader-en-Y gastric bypass Per Bariatric Surgery Pain relief IS Increase activity AARON Continue with volume expansion Monitor lab values daily Leukocytosis Afebrile PT OT SS for dc planning GI/DVT prophylaxis with protonix and SCDs I personally spent 6 minutes in the management of this patient, the details of my visit are listed in my documentation above. This plan of care has been initiated in collaboration with the Consulting Physician Dr. Sr Please note portions of this note utilized [employer] dictation software, please excuse any typographical or grammatical errors Associated attestation - Cachorro Sr MD - 12/09/2022 8:07 PM EDT I have independently interviewed and examined the patient. I have discussed waite elements of the care plan with the MULTIMEDIA AUTHOR and I agree with the findings and care plan as stated above. Time spent performing exam and reviewing diagnostics results, images and labs and discussing care plan with nurse practitioner and consulting physicians was 76 minutes D/w dr sweetie Price reviewed Bp better ctrld Pt aox3 Pain ctrl Po diet resumed Heart rrr Lungs clear Abd binder in place No edemas Pt will follow as outpt w pmd and dr sweetie Price reviewed See orders DipJar 12-09-2022 Consult note Associated Order (s): IP CONSULT TO GENERAL MEDICINE Consultation Consult Date/Time: 12/09/22 8:05 AM Consulting Physician: Sweetie Reason for Consultation: Medical Management Hospital Course: Patient presented to [facility] for planned surgery with Dr. Cruz. Unfortunately, the patient has a history of morbid obesity. She was being followed in the outpatient setting and it was therefore recommended to consider surgical intervention. The patient was agreeable and therefore presented for surgery this morning including laparoscopic bariatric surgery. Prior to presentation, the patient denied all reports of chest pain, SOB, N/V/D, abdominal pain, dysuria, unusual skin rashes or lesion. Currently they are resting in bed in no acute distress at this time. Patient's past history including gastroesophageal reflux disease, of smoking alcohol or drug use. Asthma, diabetes, hypertension, fatty liver and obstructive sleep apnea. There is no history of smoking alcohol or drug use. Patient is being evaluated postoperatively. She is afebrile. Vitals are stable. She is on 4 L nasal cannula Oxygen. Objective: Patient Active Problem List Diagnosis Date Noted Morbid obesity 12/08/2022 Benign hypertension 12/08/2022 DEVIN (obstructive sleep apnea) 12/08/2022 S/P Nader-en-Y gastric bypass 12/08/2022 Asthma 12/08/2022 Type 2 diabetes mellitus, with long-term current use of insulin 11/13/2022 GERD (gastroesophageal reflux disease) 01/23/2021 Added automatically from request for surgery [id number] body mass index of 40.0-49.9 01/22/2021 Past Medical History: Diagnosis Date Asthma Rodriguez esophagus Congestive heart failure Diabetes mellitus Essential hypertension, benign Fatty liver GERD (gastroesophageal reflux disease) Heart failure, diastolic Hyperlipidemia DEVIN (obstructive sleep apnea) Renal disease stage 3 Past Surgical History: Procedure Laterality Date EGD W/ BX N/A 03/14/2021 Laterality: N/A; Surgeon: Gallito Yates MD; Location: [facility] ENDOSCOPY HEART CATHETERIZATION 2020 no stents RELEASE CARPAL TUNNEL Right 2000 TUBAL LIGATION 1996 LAP CHOLECYSTECTOMY Social History Tobacco Use Smoking status: Former Packs/day: 2.00 Years: 30.00 Total pack years: 60.00 Types: Cigarettes Start date: 1975 Quit date: 2006 Years since quittin.6 Smokeless tobacco: Never Substance Use Topics Alcohol use: Yes Comment: once a year Family History Problem Relation Age of Onset Anesth Problems Mother mom prolonged sedation, ponv and hallucinating for 2 weeks Bleeding or Clotting Problems Father Medications Prior to Admission Medication Sig Dispense Refill Last Dose acetaminophen 500 MG tablet Take 1 tablet by mouth every 6 hours as needed for Mild Pain. 12/08/2022 atorvastatin 40 MG tablet Take by mouth. 12/07/2022 Cyclobenzaprine 5 MG tablet Take 1 tablet by mouth every 8 hours as needed. 12/07/2022 diltiazem 180 MG Cap SR 24HR capsule XL 12/07/[address] Particles capsule DR Take 1 capsule by mouth daily. 12/07/[address]ome[address] capsule 2 times daily. 12/08/2022 Farxiga 10 MG tablet Take 1 tablet by mouth daily. 12/07/2022 furOSEmide 20 MG tablet Take 1 tablet by mouth daily. 1 to 2 tablets daily 12/07/2022 glipiZIDE 10 MG tablet regular release Take 2 tablets by mouth 2 times daily. 12/07/2022 Insulin Aspart 100 UNIT/ML injection As directed. 12/07/2022 Insulin Degludec (TRESIBA SC) Inject 84 Units under the skin daily. 12/08/2022 lisinopril 40 MG tablet Take 1 tablet by mouth daily. 12/07/2022 metoprolol succinate 100 MG tablet XL Take 1 tablet by mouth daily. 12/08/2022 Pramipexole Dihydrochloride 1.5 MG tablet Take 1 tablet by mouth daily. 12/07/2022 zolpidem 5 MG tablet TAKE 1 TABLET BY MOUTH EVERYDAY AT BEDTIME 12/07/2022 Advair HFA 230-21 MCG/ACT Aerosol inhaler INHALE TWO (2) PUFFS BY MOUTH EVERY 12 HOURS More than a month Albuterol Sulfate 108 (90 Base) MCG/ACT Aerosol Powder, breath activated Inhale 2 puffs 4 times daily as needed for Shortness of Breath. More than a month Cholecalciferol (vitamin D3) 1.25 MG (49700 UT) capsule TAKE 1 CAPSULE BY MOUTH TWICE WEEKLY 11/30/2022 ergocalciferol (Drisdol) 1.25 MG (74709 UT) capsule 1 capsule. FeroSul 325 (65 Fe) MG tablet TAKE 1 TABLET BY MOUTH EVERY DAY 30 tablet 0 11/30/2022 Magnesium Oxide 500 MG tablet Take 2 tablets by mouth daily. Ondansetron 4 MG Tab Dispersible tablet Take 1 tablet by mouth every 8 hours as needed. 30 tablet 2 oxyCODONE 5 MG/5ML Solution oral solution Take 5 mL by mouth every 6 hours as needed for up to 6 days. 120 mL 0 oxygen gas Inhale 2 L As directed. Trulicity 4.5 MG/0.5ML Solution Pen-injector INJECT 0.5 ML SUBCUTANEOUSLY EVERY WEEK 11/26/2022 Allergies Allergen Reactions Penicillins Hives Review of Systems: Ten systems reviewed and found to be negative unless otherwise stated in the history and present illness. PHYSICAL EXAM: Patient Vitals for the past 8 hrs: BP Temp Temp src Pulse Resp SpO2 Height Weight 12/08/22 1415 152/70 -- -- 98 -- 95 % -- -- 12/08/22 1400 148/70 -- -- 95 -- -- -- -- 12/08/22 1345 143/68 -- -- 97 -- 97 % -- -- 12/08/22 1330 139/64 97.8 F (36.6 C) Temporal 97 19 93 % -- -- 12/08/22 1316 123/57 -- -- -- -- 94 % -- -- 12/08/22 1314 -- -- -- 101 24 94 % -- -- 12/08/22 1313 -- -- -- 100 21 95 % -- -- 12/08/22 1312 -- -- -- 100 16 97 % -- -- 12/08/22 1311 -- -- -- 101 21 97 % -- -- 12/08/22 1310 122/58 -- -- 101 20 95 % -- -- 12/08/22 1309 -- -- -- 101 23 95 % -- -- 12/08/22 1308 -- -- -- 100 13 95 % -- -- 12/08/22 1307 -- -- -- 99 11 94 % -- -- 12/08/22 1306 -- -- -- 99 15 94 % -- -- 12/08/22 1305 121/59 -- -- 99 12 95 % -- -- 12/08/22 1304 -- -- -- 100 (!) 26 95 % -- -- 12/08/22 1303 -- -- -- 100 18 95 % -- -- 12/08/22 1302 121/57 -- -- 100 (!) 26 94 % -- -- 12/08/22 1301 -- -- -- 100 (!) 27 93 % -- -- 12/08/22 1300 -- -- -- 99 23 94 % -- -- 12/08/22 1259 -- -- -- 98 (!) 26 95 % -- -- 12/08/22 1258 -- -- -- 97 22 94 % -- -- 12/08/22 1257 -- -- -- 98 23 93 % -- -- 12/08/22 1256 -- -- -- 98 21 95 % -- -- 12/08/22 1255 132/64 -- -- 99 19 96 % -- -- 12/08/22 1254 -- -- -- 100 22 98 % -- -- 12/08/22 1253 -- -- -- 100 (!) 25 95 % -- -- 12/08/22 1252 -- -- -- 100 23 95 % -- -- 12/08/22 1251 -- -- -- 98 19 98 % 1.626 m (5' 4 ) 127.5 kg (281 lb) 12/08/22 1250 131/68 -- -- 99 20 99 % -- -- 12/08/22 1249 -- -- -- 100 18 97 % -- -- 12/08/22 1248 -- -- -- 100 22 98 % -- -- 12/08/22 1247 -- -- -- 101 24 96 % -- -- 12/08/22 1246 -- -- -- 101 22 96 % -- -- 12/08/22 1245 129/62 -- -- 101 24 96 % -- -- 12/08/22 1244 -- -- -- 100 23 96 % -- -- 12/08/22 1243 -- -- -- 100 15 96 % -- -- 12/08/22 1242 -- -- -- 100 16 96 % -- -- 12/08/22 1241 -- -- -- 100 15 96 % -- -- 12/08/22 1240 -- -- -- 102 -- 96 % -- -- 12/08/22 1239 137/61 97.9 F (36.6 C) Temporal 104 15 95 % -- -- 12/08/22 0800 -- -- -- -- -- -- 1.626 m (5' 4 ) -- 12/08/22 0730 120/59 97.3 F (36.3 C) Temporal 90 16 95 % -- -- General: Patient resting comfortably. Awake. No acute distress speaking in 3 word sentences with no conversational defecit HEENT: Normalcephalic, atraumatic. Pupils equal, round, reactive, to light and accomodation B/L. Bilateral nares patent without obvious drainage. Oral mucosa moist, pink, intact without ulcers or lesions. Neck: No JVD, no thyromegaly, no anterior or posterior lymphadenopathy. Cardiovascular: Regular rate and rhythm, without murmurs, rubs, or gallops. Respiratory: Bilateral Upper and Lower Lobes anterior and posteriorly without wheezes, rales, or rhonchi Abdomen: Soft, rounded, non-tender. Bowel sounds present x4 quadrants. No rebound. No organomegaly or masses noted upon deep palpation. Extremities: No edema, clubbing or cyanosis, pulses palpable 2+ distally. Skin: Warm, Dry, Intact. No obvious rashes or lesions noted. Neuro: Cranial nerves 2-12 grossly intact. No focal defiects noted on seated neuro examination. Diagnostics: Lab Results Component Value Date WBC 15.7 (H) 12/08/2022 HGB 12.9 12/08/2022 HCT 40.3 12/08/2022 PLATELET 265 12/08/2022 MCV 81.2 12/08/2022 @LASTMAGNESIUM(1D,2)@ Lab Results Component Value Date INR 0.88 11/24/2022 PT 12.0 11/24/2022 Lab Results Component Value Date CREATSERUM 1.60 (H) 12/08/2022 BUN 21 (H) 12/08/2022 SODIUM 135 (L) 12/08/2022 POTASSIUM 4.1 12/08/2022 CHLORIDE 101 12/08/2022 CO2 26 12/08/2022 No results found for: SPGRVTYUR , SPECGRAVUR , GLUCOSEURINE , BILIRUBINURI , KETONESURINE , BLOODURINE , PHURINE , NITRITEURINE , NITRITESURIN , LEUKOCESTUR , WBCURINE , RBCURINE , BACTERIAURIN Impression and Plan: Present on Admission: Morbid obesity GERD (gastroesophageal reflux disease) Type 2 diabetes mellitus, with long-term current use of insulin Benign hypertension DEVIN (obstructive sleep apnea) S/P Nader-en-Y gastric bypass Asthma Asthma Continue with aerosol breathing treatments Benign hypertension Continue with outpatient therapy Add prn for sbp >160 GERD (gastroesophageal reflux disease) Continue PPI daily DEVIN (obstructive sleep apnea) Continue with CPAP/BIPAP therapy Continuous pulse oximetry and telemetry monitoring Type 2 diabetes mellitus, with long-term current use of insulin Continue with SSI Accuchecks ac/hs Diabetic diet Screening A1C level S/P Nader-en-Y gastric bypass Per Bariatric Surgery Pain relief IS Increase activity AARON Continue with volume expansion Monitor lab values daily Leukocytosis Afebrile PT OT SS for dc planning GI/DVT prophylaxis with protonix and SCDs I personally spent 6 minutes in the management of this patient, the details of my visit are listed in my documentation above. This plan of care has been initiated in collaboration with the Consulting Physician Dr. Sr Please note portions of this note utilized [employer] dictation software, please excuse any typographical or grammatical errors Associated attestation - Cachorro Sr MD - 12/09/2022 8:07 PM EDT I have independently interviewed and examined the patient. I have discussed waite elements of the care plan with the MULT[employer] AUTHOR and I agree with the findings and care plan as stated above. Time spent performing exam and reviewing diagnostics results, images and labs and discussing care plan with nurse practitioner and consulting physicians was 76 minutes D/w dr sweetie Price reviewed Bp better ctrld Pt aox3 Pain ctrl Po diet resumed Heart rrr Lungs clear Abd binder in place No edemas Pt will follow as outpt w pmd and dr sweetie Price reviewed See orders documented in this encounter [facility] 12-09-2022 Nurse Note Prior assessment unchanged, call light within reach. [facility] 12-09-2022 Nurse Note Patient appears asleep at this time, respirations even and unlabored. Call light within reach. [facility] 12-08-2022 Evaluation + Plan note Associated Problem(s): S/P Nader-en-Y gastric bypass Per Bariatric Surgery Pain relief IS Increase activity [facility] 12-08-2022 Evaluation + Plan note Associated Problem(s): Type 2 diabetes mellitus, with long-term current use of insulin Continue with SSI Accuchecks ac/hs Diabetic diet Screening A1C level [facility] 12-08-2022 Evaluation + Plan note Associated Problem(s): DEVIN (obstructive sleep apnea) Continue with CPAP/BIPAP therapy Continuous pulse oximetry and telemetry monitoring [facility] 12-08-2022 Evaluation + Plan note Associated Problem(s): GERD (gastroesophageal reflux disease) Continue PPI daily [facility] 12-08-2022 Evaluation + Plan note Associated Problem(s): Benign hypertension Continue with outpatient therapy Add prn for sbp >160 [facility] 12-08-2022 Evaluation + Plan note Associated Problem(s): Asthma Continue with aerosol breathing treatments [facility] 12-08-2022 Progress note Formatting of t his note might be different from the original. Approached for PT evaluation. Patient s/p bariatric surgery this date by Dr. Cruz. RN currently in with patient. Patient awake and alert but reports double vision at this time. Not yet ready to participate with PT. Will follow up tomorrow. [facility] 12-08-2022 Nurse Note Discharged from PACU in stable condition. Transported via bed to room 268. Bed placed in lowest position. Call light within reach. Report given to Rashawn Martinez at bedside. [facility] 12-08-2022 Nurse Note Patient transferred to PACU via bed, all side rails up Accompanied by Eusebio Lewis CRNA Oral airway in, hob elevated, patient in no obvious distress All monitors attached on arrival to PACU Report given to A Tony RN documented in this encounter [facility] 12-08-2022 Nurse Surgical operation note Patient transferred to PACU via bed, all side rails up Accompanied by Eusebio Lewis CRNA Oral airway in, hob elevated, patient in no obvious distress All monitors attached on arrival to PACU Report given to A Tony RN [facility] 12-08-2022 Progress note Formatting of t his note might be different from the original. I certify that this patient requires inpatient services at this time. I anticipate the expected length of stay will include at least two midnights. Current treatment plan includes pain and nausea control. Plans for post hospitalization care will be discharge to home. [facility] 12-08-2022 Surgery Postoperative evaluation and management note Operative Report DATE OF SERVICE: 12/08/2022 NAME: Nelia Barker CSN: [id number] PRE OP DIAGNOSES: Morbid obesity with DM POST OP DIAGNOSES: Morbid obesity with DM INDICATION FOR PROCEDURE: This patient is a pleasant 62 y.o. female suffering from morbid obesity and its comorbidities. After being seen in the clinic, She was found to be an appropriate candidate for a laparoscopic Nader-en-Y gastric bypass. OPERATIONS PERFORMED: Laparoscopic Nader-en-Y gastric bypass, robotic assisted, interpretation of ICG for perfusion SURGEON: Thor Cruz DO FITTER AND TURNER: Surgical Staff: Jig Bore Tool Maker: Samanta Reyes RN; Cammy Elise RN Refractory Products Supervisor Spot Checker: Taylor Caruso Child Care: Viktor Rubin ANESTHESIA: GETA ESTIMATED BLOOD LOSS IN MLS: 20 COMPLICATIONS: None SPECIMEN: None PREOPERATIVE NOTE: The contemplated operative procedure, risks, benefits and alternatives to this procedure have been discussed with this patient and/or legal sales and marketing representative. The patient and/or legal sales and marketing representative acknowledge(s) understanding of the above and consent(s) to the procedure. OPERATIVE PROCEDURE: The patient was given intravenous antibiotics, sequential stockings, subcutaneous heparin in the preoperative area. After informed consent, the patient was transferred to the operating room, placed in a supine position, and underwent general anesthesia. The abdomen was prepped and draped in the usual sterile fashion using ChloraPrep. Next a timeout was obtained that revealed the correct patient, position, and laterality of the procedure. Once this was done, a 1 cm transverse incision was made approximately 15 cm below the xiphoid and approximately 2 cm to the left of the midline. A 5 mm scope was then inserted into the abdomen under direct visualization without difficulty. The abdomen was then insufflated with CO2 to a pressure of 15 mmHg. An angled laparoscope was then inserted and additional ports were placed. 2 left-sided 8 mm trochars were placed under direct visualization. This was then followed by a 12 mm right-sided trocar and another 8 mm air seal trocar. The patient was then placed in 20 of Trendelenburg and the da Latasha robot was docked to the patient in the usual fashion. I then took my position at the surgical consult. The liver was then retracted superiorly medially revealing the anterior border of the erich and the freehold liver retractor system was anchored at this point and then to the anterior abdominal wall superiorly and right lateral to provide adequate liver retraction. The calibration tube was then passed by anesthesia into the stomach and the stomach was suctioned. Following this, I measure proximally 5 cm from the GE junction along the lesser curve of the stomach using the aid of the calibration tube. Stomach was grasped and elevated and a vessel sealing device was used to create a retrogastric tunnel. I then began to transect the stomach at this point to the angle of Hiss using the calibration tube as a guide. I was able to completely transect the stomach and create the upper gastric pouch using multiple loads on the 60 mm SureForm staper. At this point, 2 mL of ICG was injected intravenously to confirm adequate perfusion, which was confirmed at both the pouch and the distal gastric remnant. I then directed my attention to the omentum, which was split using vessel sealing device at the transverse colon. The transverse colon was then elevated to identify the ligament of Treitz, and once identified, the small bowel was run from the ligament of Treitz 100 centimeters distally. This was then brought to the gastric pouch in an anticolic, antigastric fashion. It was then secured to the staple line of the upper gastric pouch using a running 2-0 PDS barbed suture. Following this, a gastrotomy and enterotomy were created using the cautery scissors, approximately 2 cm in length. The posterior portion of the anastomosis was created used a 20 mm fire with a blue load. The anterior defect was then closed in a 2 layers performed using 2-0 PDS barbed suture in a running fashion with the inner layer and an outer layer Lembert style suture. Following this, I then grasped the small bowel to the left of the gastrojejunostomy and dissected a window in the mesentery. This allowed me to divide the BP limb from the Nader limb using a white load on the SureForm 60 mm stapler. Once this was completed, a leak test was completed using 60 mL of saline mixed with 8 mL of ICG. Flow was seen through the anastomosis and no leak was identified. The ICG was then suctioned and the tube removed. The Nader limb was then run 150 cm and brought to the BP limb. At this point a side to side anastomosis was created using a white load on the 60 mm SureForm stapler. The common enterotomy was then closed using a running 2-0 PDS barbed suture and the mesenteric defect was closed with a 2-0 PDS barbed suture as well. The freehold liver retraction system was then taken down and removed from the patient. The fascia of the 12 mm trocar was closed in a posterior fashion using a 2-0 Vicryl suture in a figure of 8 fashion. The da Latasha robot was then undocked and the remaining ports removed after the abdomen was desufflated and skin incisions were then closed with 4-0 Monocryl in a subcuticular fashion and skin glue was then applied over the top the incisions. All counts were correct at the end of the procedure. The patient tolerated the procedure well and was taken to the PACU for recovery. Thor Cruz DO 12:16 PM [facility] 11-13-2022 History of Present illness Narrative Bariatric History and Physical Patient:Nelia Barker :1960 Date: 11/13/2022 PRIMARY/REFERRING PHYSICIAN INFORMATION Kate Spencer HISTORY OF PRESENT ILLNESS Nelia Barker is a 62 y.o. female who presents for her preoperative appointment. she has completed all of her preoperative requirements and insurance approval has been obtained. All of her questions and concerns have been addressed in the office today. Past Medical History: Diagnosis Date Rodriguez esophagus Congestive heart failure Diabetes mellitus Essential hypertension, benign Fatty liver Heart failure, diastolic DEVIN (obstructive sleep apnea) Past Surgical History: Procedure Laterality Date EGD W/ BX N/A 03/14/2021 Laterality: N/A; Surgeon: Gallito Yates MD; Location: [facility] ENDOSCOPY RELEASE CARPAL TUNNEL Right 2000 TUBAL LIGATION 1996 LAP CHOLECYSTECTOMY Current Outpatient Medications Medication Sig Albuterol Sulfate 108 (90 Base) MCG/ACT Aerosol Powder, breath activated Inhale 2 puffs 4 times daily as needed for Shortness of Breath. atorvastatin 40 MG tablet Take by mouth. Cholecalciferol (vitamin D3) 1.25 MG (50433 UT) capsule TAKE 1 CAPSULE BY MOUTH TWICE WEEKLY diltiazem 180 MG Cap SR 24HR capsule XL DULoxetine [address] Particles capsule DR Take 1 capsule by mouth daily. esomeprazole [address] capsule FeroSul 325 (65 Fe) MG tablet TAKE 1 TABLET BY MOUTH EVERY DAY furOSEmide 20 MG tablet Take 1 tablet by mouth daily. glipiZIDE 10 MG tablet regular release Take 2 tablets by mouth 2 times daily. Insulin Aspart 100 UNIT/ML injection As directed. Insulin Degludec (TRESIBA SC) Inject 54 Units under the skin daily. lisinopril 40 MG tablet Take 1 tablet by mouth daily. Magnesium Oxide 500 MG tablet Take 2 tablets by mouth daily. metFORMIN 1000 MG tablet Take 1 tablet by mouth 2 times daily. metoprolol succinate 100 MG tablet XL Take 1 tablet by mouth daily. Mounjaro 5 MG/0.5ML Solution Pen-injector oxygen gas Inhale 2 L As directed. Pramipexole Dihydrochloride 1.5 MG tablet Take 1 tablet by mouth daily. zolpidem 5 MG tablet TAKE 1 TABLET BY MOUTH EVERYDAY AT BEDTIME Ondansetron 4 MG Tab Dispersible tablet Take 1 tablet by mouth every 8 hours as needed. oxyCODONE 5 MG/5ML Solution oral solution Take 5 mL by mouth every 6 hours as needed for up to 6 days. Allergies Allergen Reactions Penicillins Hives Social History Socioeconomic History Marital status: Single Spouse name: Not on file Number of children: Not on file Years of education: Not on file Highest education level: Not on file Occupational History Not on file Tobacco Use Smoking status: Former Packs/day: 2.00 Years: 30.00 Total pack years: 60.00 Types: Cigarettes Start date: 1975 Quit date: 2005 Years since quittin.5 Smokeless tobacco: Never Vaping Use Vaping Use: Never used Substance and Sexual Activity Alcohol use: Yes Comment: once a year Drug use: Never Sexual activity: Not on file Other Topics Concern Not on file Social History Narrative Not on file Social Determinants of Health Financial Resource Strain: Not on file Food Insecurity: Not on file Transportation Needs: Not on file Physical Activity: Not on file Stress: Not on file Social Connections: Not on file Intimate Partner Violence: Not on file Housing Stability: Not on file No family history on file. No family status information on file. REVIEW OF SYSTEMS Review of Systems Constitutional: Negative for chills, diaphoresis and fatigue. HENT: Negative for congestion, facial swelling and hearing loss. Eyes: Negative for pain, redness and itching. Respiratory: Negative for apnea, cough, choking and chest tightness. Cardiovascular: Negative for chest pain, palpitations and leg swelling. Gastrointestinal: Negative for abdominal distention, abdominal pain, constipation, diarrhea, nausea and vomiting. Endocrine: Negative for cold intolerance, heat intolerance and polyphagia. Genitourinary: Negative for difficulty urinating, dysuria, enuresis and flank pain. Musculoskeletal: Negative for arthralgias, back pain, gait problem and joint swelling. Skin: Negative for color change, pallor and rash. Allergic/Immunologic: Negative for environmental allergies, food allergies and immunocompromised state. Neurological: Negative for dizziness, light-headedness, numbness and headaches. Hematological: Negative for adenopathy. Does not bruise/bleed easily. Psychiatric/Behavioral: Negative for agitation, behavioral problems and confusion. Social History Tobacco Use Smoking Status Former Packs/day: 2.00 Years: 30.00 Total pack years: 60.00 Types: Cigarettes Start date: 1975 Quit date: 2005 Years since quittin.5 Smokeless Tobacco Never PHYSICAL EXAM General Appearance: Well appearing, alert, in no acute distress, well-hydrated, well nourished., morbidly obese. Eyes: conjunctivae and sclerae normal, pupils equal, round, reactive to light and accommodation and no scleral icterus. Ears/Nose/Mouth/Throat: External ears normal, canals clear, TM's normal, Nares normal. Septum midline. Mucosa normal. No drainage or sinus tenderness., Lips, mucosa, and tongue normal, teeth and gums normal, oropharynx normal. Neck: Supple, no adenopathy; thyroid symmetric, normal size, no bruits. Respiratory: Clear to auscultation bilaterally Cardiovascular: Regular rate and rhythm, distal pulses intact bilaterally. Abdomen: soft, non-tender, non-distended, obese, no hernias palpated Lymph Nodes: No cervical lymphadenopathy. Musculoskeletal: Spine range of motion normal. Muscular strength intact, No joint swelling, deformity, or tenderness. Skin: No lesions noted. Neurologic: mental status intact, cranial nerves 2-12 intact, sensation to light touch and pinprick normal. Psychiatric: A&O x 3; Judgement/lnsight appropriate Rectal: deferred exam. DIAGNOSIS/IMPRESSION Encounter Diagnoses Name Primary? body mass index of 40.0-49.9 Yes Type 2 diabetes mellitus without complication, with long-term current use of insulin with Body mass index is 48.23 kg/m2. SURGICAL PLAN Surgical Procedure: Laparoscopic Nader-en-y gastric bypass. I have use an anatomical chart to show the postsurgical changes that occur. I discussed expected weight loss with this procedure and I talked about common early and late complications associated with his procedure. This list included but was not limited to leaks, strictures, bleeding, postoperative infection, hernias and small bowel obstructions. I discussed dumping syndrome in detail how dietary choices can worsen this problem. I discussed the need for vitamins and postoperative.. I have discussed postsurgical follow-up. I discussed the need for supervised medical weight loss prior to surgery as well as mental health examination evaluation. All risks and benefits were discussed with the patient including: Intra-operative and/or Immediate Post-operative Risks: : The mortality rate of the sleeve gastrectomy nationwide is 0.3% to 2%. Modality rate associated with the gastric bypass is slightly higher-0.5 to 3%. Significant Bleeding: Bleeding may occur unexpectedly in the operating room. Bleeding may also occur post-operatively in the days after the operation. This bleeding may be through the intestinal tract at the staple line and result in the passage of blood in the stool. Bleeding may also be unseen inside the abdomen and be diagnosed through other means. A transfusion may be necessary in some circumstances. Re-operation to stop bleeding may be necessary. If the spleen is injured during the surgery, it may need to be removed. Anastomotic Leak: A leak is when the stapled part of the stomach does not heal. Serious complications can result from a leak, including, but not limited to a prolonged hospital stay, more operations, a long period of nothing to eat, prolonged antibiotic requirements, organ failure and . The reported incidence of anastomotic leak nationwide ranges from 0.5% to 3%. Renal Failure: Transient kidney (renal) failure occurs rarely. Irreversible kidney failure has been reported in rare cases. Prolonged Ventilation: A prolonged stay on a ventilator (breathing machine) in the intensive care unit may occur if a patient has severe sleep apnea or after certain significant complications. A temporary tracheostomy may be necessary. Heart Attack: Although a heart attack is possible after a laparoscopic possible open sleeve gastrectomy, it is very rare. Risk factors for heart disease include increased age, diabetes, hypertension, hypercholesterolemia and a family history of heart disease. Prolonged Hospital Stay: Unforeseen complications may result in a prolonged hospital stay. Intensive care admission may be required. Bowel Obstruction (in undergoing the gastric bypass): An obstruction can occur that would require re-operation. An obstruction can occur from a number of causes, such as bleeding, scarring, technical problems or hernia. Deep Vein Thrombosis (DVT)/Pulmonary Embolism: Blood clots that form in the legs, and elsewhere, and break off into the lungs may cause . Given this risk, treatments may be initiated to decrease the risk for the formation of blood clots, including the use of heparin (a medication that thins the blood), special foot and leg stockings, walking soon after surgery and medication at home after discharge from the hospital. Completely eliminating the risks of DVT (clots) altogether is not possible. The risks associated with the medications used to prevent blood clots can include excessive bleeding. Any symptoms of leg swelling, chest pain or sudden shortness of breath should be immediately reported to the surgeon. Rarely, patients develop allergies to heparin, sometimes causing very severe reactions. Other Complications that may be common: Allergic reactions, headaches, itching, medication side-effects, heartburn/reflux, bruising, gout, anesthetic complications, injury to the bowel or vessels, gas bloating, minor wound drainage, wound opening, scar formation, stroke, urinary tract infection, urinary retention, pressure sores, injury to spleen or surrounding structures, and pneumonia. The patient was advised not to become within 12-18 months following bariatric surgery. She was educated on the increased risks to mother and fetus associated with within 2 years of bariatric surgery. The patient has also been instructed to refrain from smoking and using illicit drugs both before and after their surgery. I have discussed at length the risks of office visits and surgical procedures at the hospital during the COVID-19 pandemic. The risk of chapincito COVID-19 during the perioperative and postoperative care period was also explained to the patient. The patient verbalized full understanding and acceptance of these risks, as well as the quarantine time between testing and surgery. The patient fully understands that if their COVID-19 test is positive or symptoms develop prior to surgery, their surgery will be cancelled. The patient has expressed the desire to proceed with the proposed surgery and any hospital stay required. I spent greater than 30 minutes in total reviewing the patient's chart, interviewing the patient, and documenting today's visit. Thor Cruz DO 11/13/2022 2:14 PM Bariatric Surgery documented in this encounter [facility] 10-27-2022 History of Present illness Narrative Bariatric Feedback Session Name: Nelia Barker Date: 10/27/2022 Time in: 1245 Time out: 1316 Length of session: 31 minutes This psychological testing feedback session is correlated to DOS 09/06/2022, the date of the original evaluation and testing. Note: Met with Nelia Barker to discuss psychological testing, the bariatric evaluation and recommendations. A review of the most recent nutrition visit suggests pt has been cleared by them. Boredom list includes: Xochilt, read more, exercise, chores, go for walks. Has a good friend who went through the program a year ago whom she can talk with. Has had no additional episodes of binge eating. Family is on board this time. They know she is determined and will follow the guidelines. Plan: Nelia Barker is cleared for bariatric surgery from a psychological perspective. Edgardo Osman PsyD documented in this encounter [facility] 10-21-2022 History of Present illness Narrative OUTPATIENT BARIATRIC NUTRITION: PRE-OP SURGERY CLEARANCE Referring Provider: Self, Self The patient was cleared for bariatric surgery from a nutrition perspective. Nutrition Assessment Anthropometrics: Ht Readings from Last 1 Encounters: 09/11/22 1.626 m (5' 4 ) Wt Readings from Last 10 Encounters: 10/21/22 128.5 kg (283 lb 3.2 oz) 10/02/22 130.6 kg (288 lb) 09/11/22 131.6 kg (290 lb 3.2 oz) 07/15/21 122.5 kg (270 lb) 06/05/21 122.5 kg (270 lb) 05/29/21 122.5 kg (270 lb) 04/24/21 123.8 kg (273 lb) 03/14/21 122.9 kg (271 lb) 03/13/21 122.9 kg (271 lb) 02/04/21 122 kg (269 lb) [place] body weight: 54.7 kg (120 lb 9.5 oz) Adjusted ideal body weight: 84.2 kg (185 lb 10.2 oz) Body mass index is 48.61 kg/m . Diet Recall: Meal What Time Breakfast 1 small bagel with cream cheese 7 am Snack 1/4 cup of pistachio nuts 9 am Lunch Lunch meat (3 oz turkey with lettuce tomato) and light hemphill on a flour wrap 12 pm Snack [place] or apple with a 1/4 cup of nuts 2 pm Dinner 4 oz of tuna with light hemphill on bread 5 pm Snack 1/2 cup of cottage cheese 7 pm Fluids Estimated 64 oz total of Water, ocean spray zero sugar juice, decaf tea, decaf coffee NA Current exercise: Pt is exercising 7 days/week for 10-15 minutes. (going on walk everyday) Ms. Nelia Barker is a 62 y.o. female here in preparation for weight loss surgery, LRYGB. This is visit #7. Pt has completed bariatric nutrition education classes 1-4. Today's visit is to evaluate pt's readiness for surgery from a nutrition standpoint, to individualize an 800 calorie meal plan and answer any nutrition related questions the pt may have. Pt has made great dietary changes since her first final appointment. She has had a rough couple of weeks with a family member in the hosptial but even with the current situation she has really foucsed on the guidelines for bariatric surgery. She reports she even tried to make healhty choices at some of the restruants around the hopital, bringing her own food, and even making good descions in the cafeteria. We discussed that althoguh she is compliant with all of the guidelines there are still some areas that she can improve upon. Sometiems she only eats fruits for snacks and pino has a protien source at breakfast time so we gave some exmaples of ways she can increase her protien. Pt has CKD Stage 3b (GFR was 36 at her last blood draw done on 09/26).- Protein recommendation given today was 60-66 grams per day based on 1.0-1.2 grams/kg IBW and patient was encouraged to not go over this number and patient verbalized her understanding. Another area that she can continue to work on is increasing her physical activity and adding strength training. Her meal plan was accurate based on the fact that the items she listed were in fact allowed on phase two and three but her portions were incorrect so we discussed how patient should stay under 4 oz on the liquid phase and 1/2 cup of solid food on the puree phase. Pt was reminded of how high risk she is for dehydration after surgery. Pt took her test home to complete and got a 100% on her test with no further questions. Pt remembers a little bit about the livershrink diet due to her being cleared 1x before but we reviewed it again and she verbalized her understanding. Pt and I reviewed dumping syndrome in more detail due to her seeking the bypass procedure. Pt was given 2x bariatric pal mv one orange citrus chewables with 45 mg iron (30 capsules) lot #[id number] exp 06/28 and she understands to not take these until advised by Dr. Cruz. Nutrition Goals: 1. Eat breakfast, lunch, dinner, and 2-3 snacks (5-6 small meals/day): MET 2. Consume adequate protein: MET 3. Limit sugar & sugar alcohols to no more than 10 grams per meal/snack: MET 4. Consume 64 oz of hydrating fluids/day: MET 5. Eliminate carbonation, straws, caffeine, and alcohol: MET 6. Eating off smaller plates and bowls: MET 7. Chew your food 20-30 times per bite when needed or until consistent texture: MET 8. Meals should last 20-30 minutes: MET 9. Separate drinking and eating by 30 minutes: MET 10. Eat in this order: protein first, vegetables and fruits second, and whole grains last: MET 11. Put your utensil or handheld food down in between bites: MET 12. Begin physical activity including cardio and strength training: MET Patient is able to verbalize: Pre-sx Liver Shrink Diet - start 2 weeks prior to surgery date All nutrition goals listed above Information/education covered during previous nutrition appointments The 5 phases of the bariatric diet Homework was provided and phase 2 and 3 sample meal plans were adequate Use of protein shakes for meal replacement and for 2-week full liquid diet phase Required vitamin & mineral supplements (life long) and how to properly take them Iron and calcium cannot be taken together (>2 hours apart) Bariatric multivitamin recommendations Generic multivitamins or prenatals need to be taken 2-4x the recommended dose to meet bariatric needs Pt plans to take bariatric pal mv one with 45 mg iron and calicum citrate 600 mg equate brand BID. Paper test score: 100% (must be 80% or higher) The patient has been thoroughly evaluated and educated on good dietary practices. Patient is able to demonstrate post-op diet advancement/portion control using food models. Patient is capable of following these guidelines pre-and post-surgically. I do anticipate post op compliance. From a nutrition standpoint, the patient is cleared for weight loss surgery. PMH: has a past medical history of Rodriguez esophagus, Congestive heart failure, Diabetes mellitus, Essential hypertension, benign, Fatty liver, Heart failure, diastolic, and DEVIN (obstructive sleep apnea). PSH: has a past surgical history that includes lap cholecystectomy; release carpal tunnel (, 2000); tubal ligation (1996); and egd w/ bx (N/A, 03/14/2021). Nutrition-Related Labs: Lab Results Component Value Date GLUCOSE 298 (H) 09/26/2022 GLUCOSE 183 (H) 01/29/2021 HGBA1C 7.1 (H) 09/26/2022 SODIUM 137 09/26/2022 POTASSIUM 4.6 09/26/2022 CALCIUM 9.5 09/26/2022 ALBUMIN 3.4 (L) 09/26/2022 BUN 30 (H) 09/26/2022 CREATSERUM 1.54 (H) 09/26/2022 HGB 12.1 09/26/2022 HCT 38.9 09/26/2022 IRON 50 09/26/2022 B12 707 09/26/2022 [id number] 70.5 09/26/2022 FOLATE 10.8 09/26/2022 BP Readings from Last 3 Encounters: 09/11/22 128/70 03/14/21 121/70 01/22/21 141/66 Nutrition Diagnosis NB-1.1 Food and nutrition-related knowledge deficit related to pre-bariatric sx diet as evidenced by scheduled for bariatric sx. Nutrition Intervention Nutrition Goals: 1. Eat 5-6 small meals/snacks per day (breakfast, lunch, dinner, and 2-3 snacks) 2. Consume adequate protein daily 3. Limit all sugar + sugar alcohols to no more than 10 grams per meal/snack 4. Drink 64+ oz of hydrating fluid/day 5. Eliminate carbonation, straws, caffeine, and alcohol 6. Eat off smaller plates and bowls 7. Take dime sized bites and chew food 20-30x per bite, or until it is a consistent texture 8. Meals need to last at least 20-30 minutes. Stop eating once you feel full 9. Separate food and fluids by 30 minutes. Do not drink with meals 10. Eat protein first, vegetables and fruits second, and whole grains last 11. Begin physical activity as tolerated. Goal of 150-300 minutes of moderate physical activity per week with 2+ days of strength or resistance training included Monitoring & Evaluation CLEARED 1. 1 month post-op appointment to be scheduled with a Registered Dietitian 2. Liver Shrink Diet will be started 2 weeks prior to surgery date 3. Progress with nutrition goals and recommendations will be tracked at each follow up with a dietitian Time spent with pt: 40 minutes CALISTA Barba Registered Dietitian, Licensed Dietitian 10/21/22 documented in this encounter [facility] 10-21-2022 Miscellaneous Notes Encounter addended by: Karthik Diallo RD on: 10/21/2022 10:56 AM Actions taken: Clinical Note Signed documented in this encounter [facility] 10-21-2022 Note Encounter addended b y: Karthik Diallo RD on: 10/21/2022 10:56 AM Actions taken: Clinical Note Signed [facility] 10-02-2022 History of Present illness Narrative OUTPATIENT BARIATRIC NUTRITION: PRE-OP SURGERY CLEARANCE Referring Provider: Self, Self The patient was not cleared for bariatric surgery from a nutrition perspective. Nutrition Assessment Anthropometrics: Ht Readings from Last 1 Encounters: 09/11/22 1.626 m (5' 4 ) Wt Readings from Last 10 Encounters: 10/02/22 130.6 kg (288 lb) 09/11/22 131.6 kg (290 lb 3.2 oz) 07/15/21 122.5 kg (270 lb) 06/05/21 122.5 kg (270 lb) 05/29/21 122.5 kg (270 lb) 04/24/21 123.8 kg (273 lb) 03/14/21 122.9 kg (271 lb) 03/13/21 122.9 kg (271 lb) 02/04/21 122 kg (269 lb) 01/22/21 123.4 kg (272 lb) [place] body weight: 54.7 kg (120 lb 9.5 oz) Adjusted ideal body weight: 85.1 kg (187 lb 8.9 oz) Body mass index is 49.44 kg/m . Diet Recall: Meal What Time Breakfast 2 pieces of toast 1 with butter and 1 with jam 8 am Lunch 1 fried egg 2 pieces of Colon and 1 piece of toast 12 pm- 1 pm Snack Dinner Roast with potatoes, onion and carrots 5-7 pm Snack Ritz crackers sour cream and onion (10 crakcers) 9 pm Fluids unsweetened decaf buck tea, 1 cup of 1/2 caffeine coffee and 2 bottles of water. NA Current exercise: Pt is not exercising. (getting injections in her back for pain and can only take tyelnol due to being in CKD stage 3). Ms. Nelia Barker is a 62 y.o. female here in preparation for weight loss surgery, RYGB. This is visit # 7. Pt has completed bariatric nutrition education classes 1-4. Today's visit is to evaluate pt's readiness for surgery from a nutrition standpoint, to individualize an 800 calorie meal plan and answer any nutrition related questions the pt may have. Pt was cleared from a nutriton standpoint over a year ago and needs to review waite bariatric concepts and make dietary changes in order to be cleared for surgery. Pt has CKD Stage 3b so her protein intake will need to be monitored. (GFR was at 36 at last blood draw done at 09/26). Pt currently is taking 3 injectable diabetic medications Trucebia 80 mg once per day, Monjaro 1x weekly 10 mg,Novalog 32 units with meals and sticks her self 3-4x per day and her last A1C was 7.1%. Pt is also having the RYGB so we discussed how to follow the 15/15 rule after bariatric surgery to treat a low if she was to have it and the importance of a carbohydrate consistent diet. Pt was given several handouts and items to complete at her next appointment. Pt will need to be meeting all of the nutritional guidelines, bring a complete meal plan for phases 2 and 3 of the post surgery diet with vitamin and minerals she plans on taking, and get a 80% on her take home test in order to be cleared for surgery. Pt voiced her understand and she was highly encouraged to reach out with any questions/concerns. Pt has CKD Stage 3b (GFR was 36 at her last blood draw done on 09/26).- Protein recommendation given today was 60-66 grams per day based on 1.0-1.2 grams/kg IBW and patient was encouraged to not go over this number. Nutrition Goals: 1. Eat breakfast, lunch, dinner, and 2-3 snacks (5-6 small meals/day): Not MET 2. Consume adequate protein: Not MET 3. Limit sugar & sugar alcohols to no more than 10 grams per meal/snack: Not MET 4. Consume 64 oz of hydrating fluids/day: Not MET 5. Eliminate carbonation, straws, caffeine, and alcohol: Not MET 6. Eating off smaller plates and bowls: Not MET 7. Chew your food 20-30 times per bite when needed or until consistent texture: Not MET 8. Meals should last 20-30 minutes: Not MET 9. Separate drinking and eating by 30 minutes: Not MET 10. Eat in this order: protein first, vegetables and fruits second, and whole grains last: Not MET 11. Put your utensil or handheld food down in between bites: Not MET 12. Begin physical activity including cardio and strength training: Not MET PMH: has a past medical history of Rodriguez esophagus, Congestive heart failure, Diabetes mellitus, Essential hypertension, benign, Fatty liver, Heart failure, diastolic, and DEVIN (obstructive sleep apnea). PSH: has a past surgical history that includes lap cholecystectomy; release carpal tunnel (Right, 2000); tubal ligation (1996); and egd w/ bx (N/A, 03/14/2021). Nutrition-Related Labs: Lab Results Component Value Date GLUCOSE 298 (H) 09/26/2022 GLUCOSE 183 (H) 01/29/2021 HGBA1C 7.1 (H) 09/26/2022 SODIUM 137 09/26/2022 POTASSIUM 4.6 09/26/2022 CALCIUM 9.5 09/26/2022 ALBUMIN 3.4 (L) 09/26/2022 BUN 30 (H) 09/26/2022 CREATSERUM 1.54 (H) 09/26/2022 HGB 12.1 09/26/2022 HCT 38.9 09/26/2022 IRON 50 09/26/2022 B12 707 09/26/2022 [id number] 70.5 09/26/2022 FOLATE 10.8 09/26/2022 BP Readings from Last 3 Encounters: 09/11/22 128/70 03/14/21 121/70 01/22/21 141/66 Nutrition Diagnosis NB-1.1 Food and nutrition-related knowledge deficit related to pre-bariatric sx diet as evidenced by scheduled for bariatric sx. Nutrition Intervention Nutrition Goals: 1. Eat 5-6 small meals/snacks per day (breakfast, lunch, dinner, and 2-3 snacks) 2. Consume adequate protein daily 3. Limit all sugar + sugar alcohols to no more than 10 grams per meal/snack 4. Drink 64+ oz of hydrating fluid/day 5. Eliminate carbonation, straws, caffeine, and alcohol 6. Eat off smaller plates and bowls 7. Take dime sized bites and chew food 20-30x per bite, or until it is a consistent texture 8. Meals need to last at least 20-30 minutes. Stop eating once you feel full 9. Separate food and fluids by 30 minutes. Do not drink with meals 10. Eat protein first, vegetables and fruits second, and whole grains last 11. Begin physical activity as tolerated. Goal of 150-300 minutes of moderate physical activity per week with 2+ days of strength or resistance training included Monitoring & Evaluation NOT CLEARED 1. Second final nutrition appointment will be scheduled 2. Provided patient with list of goals that were not being met. Pt verbalized understanding that at next nutrition appointment that all nutrition goals must be met, a score of 80% or higher is required on paper test, and pt must be able to verbalize all nutrition education and goals. Time spent with pt: 49 minutes CALISTA Barba Registered Dietitian, Licensed Dietitian 10/02/22 documented in this encounter [facility] 09-11-2022 History of Present illness Narrative Bariatric History and Physical Patient:Nelia Barker :1960 Date: 09/11/2022 PRIMARY/REFERRING PHYSICIAN INFORMATION Kate Spencer HISTORY OF PRESENT ILLNESS CHIEF COMPLAINT: morbid obesity with significant comorbidities. Patient is being referred for pre operative consult for weight loss surgery HISTORY OF PRESENT ILLNESS: The patient is a very pleasant patient who has developed morbid obesity with significant comorbidities who has failed multiple dietary attempts at weight loss. Nelia Barker is a 62 y.o. female who presents with complaints of obesity which is severely limiting her life style. She is interested in learning about possible surgical options to help her fight her obesity. She has tried diet and exercise programs previously. She is limited in his physical activity due to obesity. she has been obese for more than 5 years and states that their highest recorded weight is 290 lbs. Previous attempts at weight loss have included exercise routines, exercise videos, low fat/low calorie diets, commercial weight loss programs such as weight watchers.she complains of occasional reflux and denies dysphagia. Past Medical History: Diagnosis Date Rodriguez esophagus Congestive heart failure Diabetes mellitus Essential hypertension, benign Fatty liver Heart failure, diastolic DEVIN (obstructive sleep apnea) COMORBIDITIES hypertension, type-2 diabetes, obstructive sleep apnea Past Surgical History: Procedure Laterality Date EGD W/ BX N/A 03/14/2021 Laterality: N/A; Surgeon: Gallito Yates MD; Location: [facility] ENDOSCOPY RELEASE CARPAL TUNNEL Right 2000 TUBAL LIGATION 1996 LAP CHOLECYSTECTOMY Current Outpatient Medications Medication Sig Albuterol Sulfate 108 (90 Base) MCG/ACT Aerosol Powder, breath activated Inhale 2 puffs 4 times daily as needed for Shortness of Breath. atorvastatin 40 MG tablet Take by mouth. Cholecalciferol (vitamin D3) 1.25 MG (85129 UT) capsule TAKE 1 CAPSULE BY MOUTH TWICE WEEKLY diltiazem 180 MG Cap SR 24HR capsule XL DULoxetine [address] Particles capsule DR Take 1 capsule by mouth daily. esomeprazole [address] capsule FeroSul 325 (65 Fe) MG tablet TAKE 1 TABLET BY MOUTH EVERY DAY furOSEmide 20 MG tablet Take 1 tablet by mouth daily. glipiZIDE 10 MG tablet regular release Take 2 tablets by mouth 2 times daily. Insulin Aspart 100 UNIT/ML injection As directed. Insulin Degludec (TRESIBA SC) Inject 54 Units under the skin daily. lisinopril 40 MG tablet Take 1 tablet by mouth daily. Magnesium Oxide 500 MG tablet Take 2 tablets by mouth daily. metFORMIN 1000 MG tablet Take 1 tablet by mouth 2 times daily. metoprolol succinate 100 MG tablet XL Take 1 tablet by mouth daily. Mounjaro 5 MG/0.5ML Solution Pen-injector oxygen gas Inhale 2 L As directed. Pramipexole Dihydrochloride 1.5 MG tablet Take 1 tablet by mouth daily. zolpidem 5 MG tablet TAKE 1 TABLET BY MOUTH EVERYDAY AT BEDTIME Allergies Allergen Reactions Penicillins Hives Social History Socioeconomic History Marital status: Single Spouse name: Not on file Number of children: Not on file Years of education: Not on file Highest education level: Not on file Occupational History Not on file Tobacco Use Smoking status: Former Packs/day: 2.00 Years: 30.00 Pack years: 60.00 Types: Cigarettes Start date: 1975 Quit date: 2005 Years since quittin.3 Smokeless tobacco: Never Vaping Use Vaping Use: Never used Substance and Sexual Activity Alcohol use: Yes Comment: once a year Drug use: Never Sexual activity: Not on file Other Topics Concern Not on file Social History Narrative Not on file Social Determinants of Health Financial Resource Strain: Not on file Food Insecurity: Not on file Transportation Needs: Not on file Physical Activity: Not on file Stress: Not on file Social Connections: Not on file Intimate Partner Violence: Not on file Housing Stability: Not on file History reviewed. No pertinent family history. No family status information on file. REVIEW OF SYSTEMS Review of Systems Constitutional: Negative for chills, diaphoresis and fatigue. HENT: Negative for congestion, facial swelling and hearing loss. Eyes: Negative for pain, redness and itching. Respiratory: Negative for apnea, cough, choking and chest tightness. Cardiovascular: Negative for chest pain, palpitations and leg swelling. Gastrointestinal: Negative for abdominal distention, abdominal pain, constipation, diarrhea, nausea and vomiting. Endocrine: Negative for cold intolerance, heat intolerance and polyphagia. Genitourinary: Negative for difficulty urinating, dysuria, enuresis and flank pain. Musculoskeletal: Negative for arthralgias, back pain, gait problem and joint swelling. Skin: Negative for color change, pallor and rash. Allergic/Immunologic: Negative for environmental allergies, food allergies and immunocompromised state. Neurological: Negative for dizziness, light-headedness, numbness and headaches. Hematological: Negative for adenopathy. Does not bruise/bleed easily. Psychiatric/Behavioral: Negative for agitation, behavioral problems and confusion. Social History Tobacco Use Smoking Status Former Packs/day: 2.00 Years: 30.00 Pack years: 60.00 Types: Cigarettes Start date: 1975 Quit date: 2005 Years since quittin.3 Smokeless Tobacco Never PHYSICAL EXAM General Appearance: Well appearing, alert, in no acute distress, well-hydrated, well nourished., morbidly obese. Eyes: conjunctivae and sclerae normal, pupils equal, round, reactive to light and accommodation and no scleral icterus. Ears/Nose/Mouth/Throat: External ears normal, canals clear, TM's normal, Nares normal. Septum midline. Mucosa normal. No drainage or sinus tenderness., Lips, mucosa, and tongue normal, teeth and gums normal, oropharynx normal. Neck: Supple, no adenopathy; thyroid symmetric, normal size, no bruits. Respiratory: Clear to auscultation bilaterally Cardiovascular: Regular rate and rhythm, distal pulses intact bilaterally. Abdomen: soft, non-tender, non-distended, obese, no hernias palpated Lymph Nodes: No cervical lymphadenopathy. Musculoskeletal: Spine range of motion normal. Muscular strength intact, No joint swelling, deformity, or tenderness. Skin: No lesions noted. Neurologic: mental status intact, cranial nerves 2-12 intact, sensation to light touch and pinprick normal. Psychiatric: A&O x 3; Judgement/lnsight appropriate Rectal: deferred exam. DIAGNOSIS/IMPRESSION Encounter Diagnoses Name Primary? body mass index of 40.0-49.9 Yes Gastroesophageal reflux disease, unspecified whether esophagitis present Type 2 diabetes mellitus without complication, unspecified whether senior living insulin use Essential hypertension with Body mass index is 49.81 kg/m2. Height: 5'4 Weight:290 lbs SURGICAL PLAN Consults: consult bariatric nutrition for preoperative supervised diets, consult bariatric psychology, consult primary care physician for medical clearance, cardiac clearance, pulmonary clearance, cpap compliance report Diagnostic Tests: CBC, CMP, Lipid Panel, Liver Function Panel, Thyroid Function, B-12, Iron Levels, H Pylori, CXR, EGD, EKG Surgical Procedure: 2. Laparoscopic Nader-en-y gastric bypass. I have use an anatomical chart to show the postsurgical changes that occur. I discussed expected weight loss with this procedure and I talked about common early and late complications associated with his procedure. This list included but was not limited to leaks, strictures, bleeding, postoperative infection, hernias and small bowel obstructions. I discussed dumping syndrome in detail how dietary choices can worsen this problem. I discussed the need for vitamins and postoperative.. I have discussed postsurgical follow-up. I discussed the need for supervised medical weight loss prior to surgery as well as mental health examination evaluation. 3. Preoperative work-up as detailed above All risks and benefits were discussed with the patient including: Intra-operative and/or Immediate Post-operative Risks: : The mortality rate of the sleeve gastrectomy nationwide is 0.3% to 2%. Modality rate associated with the gastric bypass is slightly higher-0.5 to 3%. Significant Bleeding: Bleeding may occur unexpectedly in the operating room. Bleeding may also occur post-operatively in the days after the operation. This bleeding may be through the intestinal tract at the staple line and result in the passage of blood in the stool. Bleeding may also be unseen inside the abdomen and be diagnosed through other means. A transfusion may be necessary in some circumstances. Re-operation to stop bleeding may be necessary. If the spleen is injured during the surgery, it may need to be removed. Anastomotic Leak: A leak is when the stapled part of the stomach does not heal. Serious complications can result from a leak, including, but not limited to a prolonged hospital stay, more operations, a long period of nothing to eat, prolonged antibiotic requirements, organ failure and . The reported incidence of anastomotic leak nationwide ranges from 0.5% to 3%. Renal Failure: Transient kidney (renal) failure occurs rarely. Irreversible kidney failure has been reported in rare cases. Prolonged Ventilation: A prolonged stay on a ventilator (breathing machine) in the intensive care unit may occur if a patient has severe sleep apnea or after certain significant complications. A temporary tracheostomy may be necessary. Heart Attack: Although a heart attack is possible after a laparoscopic possible open sleeve gastrectomy, it is very rare. Risk factors for heart disease include increased age, diabetes, hypertension, hypercholesterolemia and a family history of heart disease. Prolonged Hospital Stay: Unforeseen complications may result in a prolonged hospital stay. Intensive care admission may be required. Bowel Obstruction (in undergoing the gastric bypass): An obstruction can occur that would require re-operation. An obstruction can occur from a number of causes, such as bleeding, scarring, technical problems or hernia. Deep Vein Thrombosis (DVT)/Pulmonary Embolism: Blood clots that form in the legs, and elsewhere, and break off into the lungs may cause . Given this risk, treatments may be initiated to decrease the risk for the formation of blood clots, including the use of heparin (a medication that thins the blood), special foot and leg stockings, walking soon after surgery and medication at home after discharge from the hospital. Completely eliminating the risks of DVT (clots) altogether is not possible. The risks associated with the medications used to prevent blood clots can include excessive bleeding. Any symptoms of leg swelling, chest pain or sudden shortness of breath should be immediately reported to the surgeon. Rarely, patients develop allergies to heparin, sometimes causing very severe reactions. Other Complications that may be common: Allergic reactions, headaches, itching, medication side-effects, heartburn/reflux, bruising, gout, anesthetic complications, injury to the bowel or vessels, gas bloating, minor wound drainage, wound opening, scar formation, stroke, urinary tract infection, urinary retention, pressure sores, injury to spleen or surrounding structures, and pneumonia. The patient was advised not to become within 12-18 months following bariatric surgery. She was educated on the increased risks to mother and fetus associated with within 2 years of bariatric surgery. The patient has also been instructed to refrain from smoking and using illicit drugs both before and after their surgery. I have discussed at length the risks of office visits and surgical procedures at the hospital during the COVID-19 pandemic. The risk of chapincito COVID-19 during the perioperative and postoperative care period was also explained to the patient. The patient verbalized full understanding and acceptance of these risks, as well as the quarantine time between testing and surgery. The patient fully understands that if their COVID-19 test is positive or symptoms develop prior to surgery, their surgery will be cancelled. The patient has expressed the desire to proceed with the proposed surgery and any hospital stay required. The patient also agrees to keep their post-operative appointment with myself and dietary to ensure success. I spent greater than 30 minutes in total reviewing the patient's chart, interviewing the patient, and documenting today's visit. Thor Cruz DO 09/11/2022 10:52 AM Bariatric Surgery documented in this encounter [facility] 07-03-2022 History of Present illness Narrative Images from the original note were not included. Hussein Napier MD 07/03/2022 at 2:43 PM Office follow up PATIENT NAME: Nelia Barker DATE OF : 1960 TODAY'S DATE: 07/03/2022 CHIEF COMPLAINT: Chief Complaint Patient presents with Other Adrenal nodule Subjective: Ms. Barker is a 62 y.o. female who presents to the office for follow up of renal mass CT cryoabalation 03/24/22 MRI w and wo at [facility] 06/2021 renal lesion and adrenal lesion are stable, some fat necrosis Doing well Review of Systems Medications Current Outpatient Medications: albuterol (2.5 MG/3ML) 0.083% nebulizer solution, Inhale 2.5 mg every 4 hours as needed., Disp: , Rfl: Albuterol Sulfate 108 (90 Base) MCG/ACT aerosol powder , Inhale 2 puffs as needed., Disp: , Rfl: amLODIPine (Norvasc) 10 MG tablet, Take 10 mg by mouth in the morning., Disp: , Rfl: atenolol (Tenormin) 100 MG tablet, Take 100 mg by mouth in the morning., Disp: , Rfl: atorvastatin (Lipitor) 40 MG tablet, Take by mouth., Disp: , Rfl: cholecalciferol (Vitamin D-3) 1.25 MG (38624 UT) capsule, TAKE 1 CAPSULE BY MOUTH TWICE WEEKLY, Disp: , Rfl: cyclobenzaprine (Flexeril) 5 MG tablet, Take 5 mg by mouth every 8 hours as needed., Disp: , Rfl: dapagliflozin (Farxiga) 10 MG, , Disp: , Rfl: dilTIAZem ER (Tiazac) 180 MG 24 hr capsule, , Disp: , Rfl: DULAGLUTIDE SC, Inject under the skin., Disp: , Rfl: DULoxetine (Cymbalta) [address] capsule, Take 60 mg by mouth in the morning., Disp: , Rfl: ergocalciferol (Vitamin D-2) 1.25 MG (11858 UT) capsule, Take 50,000 Units by mouth once a week., Disp: , Rfl: esomeprazole (NexIUM) [address] capsule, , Disp: , Rfl: ferrous sulfate 325 (65 Fe) MG tablet, Take 1 tablet by mouth in the morning., Disp: , Rfl: furosemide (Lasix) 20 MG tablet, Take 20 mg by mouth in the morning., Disp: , Rfl: glipiZIDE (Glucotrol) 10 MG tablet, Take 10 mg by mouth., Disp: , Rfl: insulin aspart protamine-insulin aspart (NovoLOG Mix 70-30) (70-30) 100 UNIT/ML injection, Inject under the skin 4 times daily (with meals and nightly). Sliding scale, Disp: , Rfl: insulin degludec (Tresiba FlexTouch) 200 UNIT/ML injection, , Disp: , Rfl: insulin degludec (Tresiba) 100 UNIT/ML injection, Inject 54 Units under the skin in the morning., Disp: , Rfl: lisinopril 40 MG tablet, Take 40 mg by mouth in the morning., Disp: , Rfl: magnesium oxide 500 MG tablet, Take 1,000 mg by mouth in the morning., Disp: , Rfl: metFORMIN (Glucophage) 1000 MG tablet, Take 1,000 mg by mouth with breakfast and with evening meal., Disp: , Rfl: metoprolol succinate XL (Toprol-XL) 100 MG 24 hr tablet, Take 100 mg by mouth in the morning., Disp: , Rfl: Mounjaro 5 MG/0.5ML solution pen-injector, Inject 5 mg under the skin 1 (one) time per week., Disp: , Rfl: oxybutynin (Ditropan) 5 MG tablet, Take 5 mg by mouth in the morning and 5 mg at noon and 5 mg in the evening., Disp: , Rfl: oxygen (O2) gas, Inhale 2 L., Disp: , Rfl: pramipexole (Mirapex) 0.5 MG tablet, Take 0.5 mg by mouth in the morning and 0.5 mg at noon and 0.5 mg in the evening., Disp: , Rfl: zolpidem (Ambien) 5 MG tablet, Take 1 tablet by mouth at bedtime., Disp: , Rfl: dexAMETHasone (Decadron) 1 MG tablet, Take 1 tablet (1 mg) by mouth Once for 1 dose. At 10pm the night prior to labs being drawn, Disp: 1 tablet, Rfl: 0 esomeprazole (NexIUM) [address] capsule, Take 20 mg by mouth., Disp: , Rfl: liraglutide (Victoza) 18 MG/3ML injection, Inject under the skin in the morning., Disp: , Rfl: Loratadine 10 MG capsule, Take by mouth., Disp: , Rfl: fkdwqiroloujdfy-vlnfbdp-zxhlGGShwk n (Mytussin DAC) 30-10-100 MG/5ML solution, Take by mouth., Disp: , Rfl: Vitals: Ht 5' 4 (1.626 m) Wt 272 lb (123 kg) BMI 46.69 kg/m Physical Exam Physical Exam LABS: No results found for: PSA No results found for: TESTOSTERONE Lab Results Component Value Date WBC 15.3 (H) 03/24/2022 HGB 11.9 03/24/2022 HCT 38.5 03/24/2022 MCV 78.5 (L) 03/24/2022 PLT 367 03/24/2022 Lab Results Component Value Date GLUCOSE 79 03/24/2022 CALCIUM 8.7 03/24/2022 NA 139 03/24/2022 K 4.2 03/24/2022 CO2 31 (H) 03/24/2022 CL 103 03/24/2022 BUN 19 (H) 03/24/2022 CREATININE 1.13 (H) 03/24/2022 No components found for: LABURIN @LASTPROCPOC@ Pathology: Radiology: Impression/Plan: Nelia was seen today for other. Diagnoses and all orders for this visit: Left renal mass (Primary) - Creatinine, Serum; Future - MR abdomen w and wo contrast; Future - Creatinine, Serum Adrenal nodule (CMS/HCC) (HCC) - Metanephrines Plasma; Future - Metanephrines Plasma MRI w and wo in 6 months She did not get metanephrin work up for her adrenal nodule?? Will get plasma metanephrins given her adrenal nodule Follow up in about 6 months (around 01/03/2023) for MRI . Hussein Napier MD 07/03/22 2:43 PM documented in this encounter [facility] 07-03-2022 Miscellaneous Notes Addended by: ARGENIS SIM on: 12/29/2022 12:19 PM Modules accepted: Orders documented in this encounter [facility] 07-03-2022 Note Addended by: ARGENIS ZAPATA on: 12/29/2022 12:19 PM Modules accepted: Orders [facility] 03-25-2022 Note Pt had concern with blood in urine. Pt urged to call Dr Napier's office who ordered procedure. [facility] 03-24-2022 Note See APPLICATION LEAD documentati on for intraprocedure vitals. [facility] 03-24-2022 Note Patient arrived to C T department from [facility] for Renal cryoablation. Dr. Zurita in to discuss procedure with patient and informed consent obtained. Patient intubated by CARITO Stevens and assisted to CT table and placed prone. quality assurance monitor on. All vitals and cardiac monitoring done by APPLICATION LEAD; see documentation. Bandaid applied to site. Patient tolerated procedure well. 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 [facility] 03-24-2022 Note IVR History & Physic al and Clearance Inpatient consult to Anesthesiology Consult performed by: Mili Ly APRN - SENIOR LOSS CONTROL SPECIALIST Consult ordered by: Hubert Zurita MD Name: Nelia Barker : 1960 (Age-61 y.o.) Date of Service: Pt seen/examined on 03/24/2022 Chief Complaint: Left renal mass History Of Present Illness: We are asked to see/evaluate Neila Barker, a 61 y.o. female for pre-procedure evaluation prior to CT GUIDED CRYOABLATION RENAL LEFT. Nelia has been seeing Dr. Napier for a left renal mass. She had a negative biopsy at [facility], however Dr. Napier is concerned for a false negative. He recommended a cryoablation. Nelia discussed this option with Dr. Zurita and has elected for this procedure today. Past Medical History: Past Medical History: Diagnosis Date Adrenal nodule (CMS/HCC) (HCC) Rodriguez's esophagus CHF (congestive heart failure) (CMS/HCC) (HCC) Chronic kidney disease Diabetes mellitus (HCC) Diastolic dysfunction Hypertension Sleep apnea Past Surgical History: Past Surgical History: Procedure Laterality Date CARPAL TUNNEL RELEASE Right CHOLECYSTECTOMY TUBAL LIGATION US GUIDED KIDNEY BIOPSY LEFT 01/17/2022 US GUIDED KIDNEY BIOPSY Medications Prior to Admission: Prior to Admission medications Medication Sig Start Date End Date Taking? Authorizing Provider albuterol (2.5 MG/3ML) 0.083% nebulizer solution Inhale 2.5 mg every 4 hours as needed. 01/17/22 Yes Historical Provider, amLODIPine (Norvasc) 10 MG tablet Take 10 mg by mouth in the morning. Yes Historical Provider, atorvastatin (Lipitor) 40 MG tablet Take by mouth. 10/19/20 Yes Historical Provider, cholecalciferol (Vitamin D-3) 1.25 MG (49620 UT) capsule TAKE 1 CAPSULE BY MOUTH TWICE WEEKLY 01/14/21 Yes Historical Provider, dapagliflozin (Farxiga) 10 MG 01/12/22 Yes Historical Provider, dilTIAZem ER (Tiazac) 180 MG 24 hr capsule 01/19/21 Yes Historical Provider, DULoxetine (Cymbalta) [address] capsule Take 60 mg by mouth in the morning. 01/17/21 Yes Historical Provider, insulin degludec (Tresiba FlexTouch) 200 UNIT/ML injection 12/24/21 Yes Historical Provider, insulin degludec (Tresiba) 100 UNIT/ML injection Inject 54 Units under the skin in the morning. Yes Historical Provider, Albuterol Sulfate 108 (90 Base) MCG/ACT aerosol powder Inhale 2 puffs as needed. Historical Provider, atenolol (Tenormin) 100 MG tablet Take 100 mg by mouth in the morning. Historical Provider, dexAMETHasone (Decadron) 1 MG tablet Take 1 tablet (1 mg) by mouth Once for 1 dose. At 10pm the night prior to labs being drawn 03/06/22 03/06/22 Hussein Napier MD DULAGLUTIDE SC Inject under the skin. Historical Provider, ergocalciferol (Vitamin D-2) 1.25 MG (43688 UT) capsule Take 50,000 Units by mouth once a week. Historical Provider, esomeprazole (NexIUM) [address] capsule Take 20 mg by mouth. Historical Provider, esomeprazole (NexIUM) [address] capsule 01/21/21 Historical Provider, ferrous sulfate 325 (65 Fe) MG tablet Take 1 tablet by mouth in the morning. 04/15/21 Historical Provider, furosemide (Lasix) 20 MG tablet Take 20 mg by mouth in the morning. 01/17/21 Historical Provider, glipiZIDE (Glucotrol) 10 MG tablet Take 10 mg by mouth. 01/18/21 Historical Provider, liraglutide (Victoza) 18 MG/3ML injection Inject under the skin in the morning. Historical Provider, lisinopril 40 MG tablet Take 40 mg by mouth in the morning. 01/17/21 Historical Provider, Loratadine 10 MG capsule Take by mouth. Historical Provider, magnesium oxide 500 MG tablet Take 1,000 mg by mouth in the morning. 01/10/21 Historical Provider, metFORMIN (Glucophage) 1000 MG tablet Take 1,000 mg by mouth with breakfast and with evening meal. 01/17/21 Historical Provider, metoprolol succinate XL (Toprol-XL) 100 MG 24 hr tablet Take 100 mg by mouth in the morning. 12/29/20 Historical Provider, MD Carpenterjatino 5 MG/0.5ML solution pen-injector Inject 5 mg under the skin 1 (one) time per week. 03/18/22 Historical Provider, oxybutynin (Ditropan) 5 MG tablet Take 5 mg by mouth in the morning and 5 mg at noon and 5 mg in the evening. Historical Provider, oxygen (O2) gas Inhale 2 L. Historical Provider, pramipexole (Mirapex) 0.5 MG tablet Take 0.5 mg by mouth in the morning and 0.5 mg at noon and 0.5 mg in the evening. Historical Provider, zolpidem (Ambien) 5 MG tablet Take 1 tablet by mouth at bedtime. 01/14/21 Historical Provider, insulin degludec (Tresiba FlexTouch) 100 UNIT/ML injection Inject under the skin. 03/24/22 Historical Provider, ANTICOAGULATION: No CHRONIC STEROID USE: No Allergies: Penicillins Social History: TOBACCO: reports that she quit smoking about 16 years ago. Her smoking use included cigarettes. She has never used smokeless tobacco. ETOH: has no history on file for alcohol use. Social History Substance and Sex (more content not included)... [facility] 01-18-2022 Note HNO ID: [id number] Author: Niurka Danielson RT(R) Service: Radiology Author Type: Technologist Type: Progress Notes Filed: 01/18/2022 8:54 AM Note Text: Radiology Service Progress Note PATIENT NAME: Nelia Barker DATE OF SERVICE: January 18, 2022 TIME: 8:45 AM PATIENT IDENTITY VERIFICATION COMPLETED USING TWO (2) IDENTIFIERS: Name and Date of confirmed by patient verbally. FALL SCREENING: Has the patient had 2 falls in the last year or 1 fall with injury or currently using an Ambulatory Assistive Device (Walker, Cane, Wheelchair, Crutches, etc.)? No PATIENT GENDER DATA: Female. status: : No status: NO. PATIENT RELEVANT IMPLANT DATA REVIEWED: Yes RADIOLOGY DEPARTMENT: General X-ray: Exam(s) Completed: Chest X-Ray PERIPHERAL IV DATA: Not applicable SIGNED BY: Niurka Danielson RT(R) January 18, 2022 8:45 AM [facility] 01-18-2022 Miscellaneous Notes Patient calls and notified of results and providers instructions. Patient verbalizes understanding. Adeola Broderick RN Left message for patient to return call. Argenis Brown Negative for COVID please notify documented in this encounter [facility] 01-17-2022 Note HNO ID: [id number] Author: Marium Rosales LPN Service: ? Author Type: ? Type: Progress Notes Filed: 01/17/2022 7:44 PM Note Text: Patient presented [facility], verified by name, date of pulse oxygen at start of visit 96 % taken on three fingers pulse 72. Patient verified by name, Date of Duoneb treatment completed pulse oxygen reading 97%, pulse 92. Patient reported improved ability to breathe. Marium Rosales JOHNNY [facility] 01-17-2022 Note HNO ID: [id number] Author: Mariely Garcia PA-C Service: ? Author Type: Physician Digital Music Instructor Type: Progress Notes Filed: 01/17/2022 7:22 PM Note Text: This note was created using [employer]. Subjective Nelia Barker is a 61 year old female. HPI Patient presents with cough and congestion over the past 2 weeks. She denies a fever. She has been wheezing and her chest has been tight the past couple days. She has coughed so hard she has vomited. No diarrhea. She did smoke 2 packs a day for over 30 years but quit in 2005. She had been told previously that she has COPD. She did have COVID in August 2021 and was hospitalized for 2 days. She did check her blood sugar this morning and it was 400. She had eaten some cookies in the middle the night. She took her medications and insulin and blood sugar was in the 70s later on today. Review of Systems HENT: Positive for congestion. Negative for sinus pressure, sinus pain and sore throat. Respiratory: Positive for cough, chest tightness, shortness of breath and wheezing. Cardiovascular: Negative for chest pain and leg swelling. Gastrointestinal: Positive for vomiting. Negative for abdominal pain, diarrhea and nausea. Genitourinary: Negative. Musculoskeletal: Negative. Skin: Negative. All other systems reviewed and are negative. PAST MEDICAL HISTORY Diagnosis Date Rodriguez's esophagus Diabetes (HCC) Hypertension Obesity DEVIN (obstructive sleep apnea) RLS (restless legs syndrome) Current Outpatient Medications Medication Sig Dispense Refill insulin degludec (TRESIBA FLEXTOUCH U-100) 100 unit/mL (3 mL) injection pen Inject subcutaneously daily at bedtime. FARXIGA 10 mg tablet lisinopril (ZESTRIL, PRINIVIL) 40 mg tablet Take 40 mg by mouth once daily. amLODIPine (NORVASC) 10 mg tablet Take 10 mg by mouth once daily. esomeprazole (NEXIUM) 20 mg capsule Take 20 mg by mouth. glipiZIDE (GLUCOTROL) 10 mg tablet Take 10 mg by mouth twice daily before meals. metFORMIN (GLUCOPHAGE) 1,000 mg tablet Take 1,000 mg by mouth twice daily with meals. atenolol (TENORMIN) 100 mg tablet Take 100 mg by mouth once daily. ergocalciferol, vitamin D2, (DRISDOL) 50,000 unit capsule Take 50,000 Units by mouth once each week. DULoxetine (CYMBALTA) 60 mg capsule Take 60 mg by mouth once daily. pramipexole (MIRAPEX) 0.5 mg tablet Take 0.5 mg by mouth three times daily. TRESIBA FLEXTOUCH U-200 200 unit/mL (3 mL) injection doxycycline (VIBRA-TABS) 100 mg tablet Take 1 tablet by mouth twice daily for 10 days. 20 tablet 0 albuterol (PROVENTIL) 2.5 mg /3 mL (0.083 %) nebulizer solution Use 3 mL via nebulizer every 4 hours as needed for wheezing/shortness of breath. Use over 5-15minutes. 75 mL 0 guaiFENesin (MUCINEX) 600 mg 12 hr tablet Take 2 tablets by mouth twice daily for 5 days. 20 tablet 0 dulaglutide (TRULICITY SUBCUTANEOUS) Inject subcutaneously. (Patient not taking: Reported on 01/17/2022) liraglutide (VICTOZA) 0.6 mg/0.1 mL (18 mg/3 mL) pnij Inject subcutaneously once daily. (Patient not taking: Reported on 01/17/2022) oxybutynin (DITROPAN) 5 mg tablet Take 5 mg by mouth three times daily. loratadine 10 mg cap Take by mouth. Current Facility-Administered Medications Medication Dose Route Frequency Provider Last Rate Last Admin ipratropium-albuterol 3 mL nebulizer solution (DUONEB) 3 mL INHALATION ONCE Mariely Garcia PA-C PAST SURGICAL HISTORY Procedure Laterality Date CARPAL TUNNEL Right 2001 CHOLECYSTECTOMY 2014 EGD 2014 RFA for rodriguez's EGD TRANSORAL BIOPSY SINGLE/MULTIPLE 05/22/15 short segment Rodriguez's - 3 year follow up PAST SURGICAL HISTORY OF 2014 rodriguez's esophagus TUBAL LIGATION HX 1996 FAMILY HISTORY Problem Relation Age of Onset Diabetes Mother Diabetes Father Social History Tobacco Use Smoking status: Former Packs/day: 2.00 Years: 32.00 Pack years: 64.00 Types: Cigarettes Quit date: 05/04/2005 Years since quittin.7 Smokeless tobacco: Never Substance Use Topics Alcohol use: No Drug use: No Objective BP 128/60 Pulse 72 Temp 36.3 ?C (97.3 ?F) Resp 22 SpO2 96% Physical Exam Vitals reviewed. Constitutional: General: She is not in acute distress. Appearance: Normal appearance. She is obese. She is not ill-appearing. HENT: Head: Normocephalic and atraumatic. Right Ear: Tympanic membrane, ear canal and external ear normal. Left Ear: Tympanic membrane, ear canal and external ear normal. Nose: Congestion present. Mouth/Throat: Mouth: Mucous membranes are moist. Pharynx: Oropharynx is clear. Cardiovascular: Rate and Rhythm: Normal rate and regular rhythm. Heart sounds: Normal heart sounds. Pulmonary: Effort: Pulmonary effort is normal. No respiratory distress. Breath sounds: Wheezing present. No rales. Skin: General: Skin is warm and dry. Neurological: Mental Status: She is alert. Assessment and Plan ASSESSMENT/PLAN: 1. Lower respiratory (more content not included)... [facility] 01-17-2022 History of Present illness Narrative Patient presented [facility], verified by name, date of pulse oxygen at start of visit 96 % taken on three fingers pulse 72. Patient verified by name, Date of Duoneb treatment completed pulse oxygen reading 97%, pulse 92. Patient reported improved ability to breathe. Marium Rosales LPN This note was created using [employer]. Subjective Nelia Barker is a 61 year old female. HPI Patient presents with cough and congestion over the past 2 weeks. She denies a fever. She has been wheezing and her chest has been tight the past couple days. She has coughed so hard she has vomited. No diarrhea. She did smoke 2 packs a day for over 30 years but quit in 2005. She had been told previously that she has COPD. She did have COVID in August 2021 and was hospitalized for 2 days. She did check her blood sugar this morning and it was 400. She had eaten some cookies in the middle the night. She took her medications and insulin and blood sugar was in the 70s later on today. Review of Systems HENT: Positive for congestion. Negative for sinus pressure, sinus pain and sore throat. Respiratory: Positive for cough, chest tightness, shortness of breath and wheezing. Cardiovascular: Negative for chest pain and leg swelling. Gastrointestinal: Positive for vomiting. Negative for abdominal pain, diarrhea and nausea. Genitourinary: Negative. Musculoskeletal: Negative. Skin: Negative. All other systems reviewed and are negative. PAST MEDICAL HISTORY Diagnosis Date Rodriguez's esophagus Diabetes (HCC) Hypertension Obesity DEVIN (obstructive sleep apnea) RLS (restless legs syndrome) Current Outpatient Medications Medication Sig Dispense Refill insulin degludec (TRESIBA FLEXTOUCH U-100) 100 unit/mL (3 mL) injection pen Inject subcutaneously daily at bedtime. FARXIGA 10 mg tablet lisinopril (ZESTRIL, PRINIVIL) 40 mg tablet Take 40 mg by mouth once daily. amLODIPine (NORVASC) 10 mg tablet Take 10 mg by mouth once daily. esomeprazole (NEXIUM) 20 mg capsule Take 20 mg by mouth. glipiZIDE (GLUCOTROL) 10 mg tablet Take 10 mg by mouth twice daily before meals. metFORMIN (GLUCOPHAGE) 1,000 mg tablet Take 1,000 mg by mouth twice daily with meals. atenolol (TENORMIN) 100 mg tablet Take 100 mg by mouth once daily. ergocalciferol, vitamin D2, (DRISDOL) 50,000 unit capsule Take 50,000 Units by mouth once each week. DULoxetine (CYMBALTA) 60 mg capsule Take 60 mg by mouth once daily. pramipexole (MIRAPEX) 0.5 mg tablet Take 0.5 mg by mouth three times daily. TRESIBA FLEXTOUCH U-200 200 unit/mL (3 mL) injection doxycycline (VIBRA-TABS) 100 mg tablet Take 1 tablet by mouth twice daily for 10 days. 20 tablet 0 albuterol (PROVENTIL) 2.5 mg /3 mL (0.083 %) nebulizer solution Use 3 mL via nebulizer every 4 hours as needed for wheezing/shortness of breath. Use over 5-15minutes. 75 mL 0 guaiFENesin (MUCINEX) 600 mg 12 hr tablet Take 2 tablets by mouth twice daily for 5 days. 20 tablet 0 dulaglutide (TRULICITY SUBCUTANEOUS) Inject subcutaneously. (Patient not taking: Reported on 01/17/2022) liraglutide (VICTOZA) 0.6 mg/0.1 mL (18 mg/3 mL) pnij Inject subcutaneously once daily. (Patient not taking: Reported on 01/17/2022) oxybutynin (DITROPAN) 5 mg tablet Take 5 mg by mouth three times daily. loratadine 10 mg cap Take by mouth. Current Facility-Administered Medications Medication Dose Route Frequency Provider Last Rate Last Admin ipratropium-albuterol 3 mL nebulizer solution (DUONEB) 3 mL INHALATION ONCE Mariely Garcia PA-C PAST SURGICAL HISTORY Procedure Laterality Date CARPAL TUNNEL Right 2000 CHOLECYSTECTOMY 2014 EGD 2014 RFA for rodriguez's EGD TRANSORAL BIOPSY SINGLE/MULTIPLE 05/22/15 short segment Rodriguez's - 3 year follow up PAST SURGICAL HISTORY OF 2014 rodriguez's esophagus TUBAL LIGATION HX 1997 FAMILY HISTORY Problem Relation Age of Onset Diabetes Mother Diabetes Father Social History Tobacco Use Smoking status: Former Packs/day: 2.00 Years: 32.00 Pack years: 64.00 Types: Cigarettes Quit date: 05/04/2005 Years since quittin.7 Smokeless tobacco: Never Substance Use Topics Alcohol use: No Drug use: No Objective BP 128/60 Pulse 72 Temp 36.3 C (97.3 F) Resp 22 SpO2 96% Physical Exam Vitals reviewed. Constitutional: General: She is not in acute distress. Appearance: Normal appearance. She is obese. She is not ill-appearing. HENT: Head: Normocephalic and atraumatic. Right Ear: Tympanic membrane, ear canal and external ear normal. Left Ear: Tympanic membrane, ear canal and external ear normal. Nose: Congestion present. Mouth/Throat: Mouth: Mucous membranes are moist. Pharynx: Oropharynx is clear. Cardiovascular: Rate and Rhythm: Normal rate and regular rhythm. Heart sounds: Normal heart sounds. Pulmonary: Effort: Pulmonary effort is normal. No respiratory distress. Breath sounds: Wheezing present. No rales. Skin: General: Skin is warm and dry. Neurological: Mental Status: She is alert. Assessment and Plan ASSESSMENT/PLAN: 1. Lower respiratory infection - ICD9: 519.8, ICD10: J22 Patient given a DuoNeb here. She feels improved upon reexamination. Also given albuterol nebulizer for home. I will treat with doxycycline and Mucinex. She will return tomorrow for x-ray as they are closed for the evening. Her vitals are stable. COVID test pending as well. Discussed red flags for ER care. Patient agreeable. - XR CHEST 2V FRONTAL/LAT - 2019 CORONAVIRUS - IPRATROPIUM 0.5 MG-ALBUTEROL 3 MG (2.5 MG BASE)/3 ML NEBULIZATION SOLEusebio Garcia PA-C documented in this encounter [facility] Diagnosis body mass index of 40.0-49.9- Primary Gastroesophageal reflux disease, unspecified whether esophagitis present Type 2 diabetes mellitus without complication, unspecified whether termite control servicer insulin use Essential hypertension Unspecified essential hypertension [facility] Diagnosis Nutritional counseling- Primary Obesity, morbid, BMI 40.0-49.9 [facility] Diagnosis Nutritional counseling- Primary Obesity, morbid, BMI 40.0-49.9 [facility] Diagnosis Binge-eating disorder, in full remission, mild- Primary Recurrent major depressive disorder, in full remission [facility] Diagnosis body mass index of 40.0-49.9- Primary Type 2 diabetes mellitus without complication, with long-term current use of insulin [facility] Diagnosis S/P Nader-en-Y gastric bypass- Primary Bariatric surgery status body mass index of 40.0-49.9 Type 2 diabetes mellitus without complication, with long-term current use of insulin Preop testing Preoperative examination, unspecified Uncomplicated asthma, unspecified asthma severity, unspecified whether persistent Benign hypertension Essential hypertension, benign Gastroesophageal reflux disease, unspecified whether esophagitis present Morbid (severe) obesity due to excess calories DEVIN (obstructive sleep apnea) Obstructive sleep apnea (adult) (pediatric) History of Ndaer-en-Y gastric bypass Bariatric surgery status Morbid obesity GERD (gastroesophageal reflux disease) Esophageal reflux Type 2 diabetes mellitus, with long-term current use of insulin Benign hypertension Essential hypertension, benign DEVIN (obstructive sleep apnea) Obstructive sleep apnea (adult) (pediatric) Asthma Unspecified asthma Morbid (severe) obesity due to excess calories [facility] Diagnosis S/P Nader-en-Y gastric bypass- Primary Bariatric surgery status [facility] Diagnosis Left renal mass- Primary Unspecified disorder of kidney and ureter Adrenal nodule (HCC) Benign neoplasm of adrenal gland [facility] Diagnosis Left renal mass Unspecified disorder of kidney and ureter [facility] Diagnosis History of Nader-en-Y gastric bypass- Primary Bariatric surgery status Obesity, morbid, BMI 40.0-49.9 Type 2 diabetes mellitus without complication, with long-term current use of insulin Intestinal malabsorption, unspecified type [facility] Diagnosis Nutritional counseling- Primary Obesity, morbid, BMI 40.0-49.9 [facility] Diagnosis Obesity, morbid, BMI 40.0-49.9- Primary [facility] (Routine) Specialty Diagnoses / Procedures Referred By [place] Referred To Contact [facility] [address] [place] [address] Referral ID Status Reason Start Date Expiration Date Visits Re quested Visits Authorized [facility] Summary Purpose Family History No Family History Records FoundNo Family History Records FoundNo Family History Records FoundNo Family History Records FoundNo Family History Records Found Advance Directives No Advanced Directives Records FoundNo Advanced Directives Records FoundNo Advanced Directives Records FoundNo Advanced Directives Records FoundNo Advanced Directives Records Found Medications Administered Section Inactive Administered Medications - up to 3 most recent administrations Medication Order MAR Action Action Date Dose Rate Site ipratropium-albuterol 3 mL nebulizer solution (DUONEB) 3 mL, INHALATION, ONCE, 1 dose, On Thu01/17/22 at 1930, PROTECT FROM LIGHT. The unit-dose vial should remain stored in the protective foil pouch until time of use. Given 01/17/2022 7:38 PM EDT 3 mL Health Concerns Infection Onset Date Last Indicated Resolved Time COVID-19 Rule-Out 01/17/2022 01/17/2022 Infection Onset Date Last Indicated Resolved Time COVID-19 Rule-Out 01/17/2022 01/17/2022 01/18/2022 8:12 AM EDT Reason for Referral Specialty Diagnoses / Procedures Referred By Contac t Referred To Contact Nutrition and Dietetics Diagnoses Obesity, morbid, BMI 40.0-49.9 Gastroesophageal reflux disease, unspecified whether esophagitis present Type 2 diabetes mellitus without complication, unspecified whether senior living insulin use Essential hypertension Thor Cruz, DO [address] [place] [address] Referral ID Status Reason Start Date Expiration Date V isits Requested Visits Authorized [id number] New Request 09/11/2022 10/06/2023 1 1 Specialty Diagnoses / Procedures Referred By Contac t Referred To Contact Psychology Diagnoses Obesity, morbid, BMI 40.0-49.9 Gastroesophageal reflux disease, unspecified whether esophagitis present Type 2 diabetes mellitus without complication, unspecified whether senior living insulin use Essential hypertension Thor Cruz DO [address] [place] [address] Edgardo Osman, yD [address] [place] [id number] Referral ID Status Reason Start Date Expiration Date V isits Requested Visits Authorized [id number] New Request 09/11/2022 10/06/2023 1 1 Specialty Diagnoses / Procedures Referred By Contac t Referred To Contact Radiology Diagnoses Left renal mass Procedures MR abdomen w and wo contrast Hussein Napier MD [address] [facility] [address] [place] [address] Referral ID Status Reason Start Date Expiration Date V isits Requested Visits Authorized [id number] Authorized 07/03/2022 12/30/2022 1 1 Referral ID Status Reason Start Date Expiration Date Visits Re quested Visits Authorized [id number] Closed 07/03/2022 12/30/2022 1 1 Referral ID Status Reason Start Date Expiration Date V isits Requested Visits Authorized [id number] Pending Review 01/22/2023 07/21/2023 1 1 Additional Source Comments INFORMATION SOURCE (unrecogn ized section and content) DATE CREATED AUTHOR AUTHOR'S ORGANIZ ATION 02/01/2022 [facility] DATE CREATED AUTHOR AUTHOR'S ORGANIZ ATION 12/11/2022 [facility] DATE CREATED AUTHOR AUTHOR'S ORGANIZ ATION 01/07/2023 [facility] DATE CREATED AUTHOR AUTHOR'S ORGANIZ ATION 03/23/2023 [facility] Source Comments (unrecognize d section and content) In the event this informatio n is protected by the Federal Confidentiality of Alcohol and Drug Abuse Patient Records regulations: The Federal rules restrict any use of the information to criminally investigate or prosecute any alcohol or drug abuse patient.[facility] the event this information is protected by the Federal Confidentiality of Alcohol and Drug Abuse Patient Records regulations: The Federal rules restrict any use of the information to criminally investigate or prosecute any alcohol or drug abuse patient.[facility] Reason for Visit (unrecogniz ed section and content) Specialty Diagnoses / Procedures Referred By Contnidia t Referred To Contact Registered Dietitian / Nutrition and Dietetics Diagnoses Final Procedures FOLLOW-UP - GABBY Self, Self Karthik Diallo, RD [address] [place] [address] Referral ID Status Reason Start Date Expiration Date V isits Requested Visits Authorized [id number] Pending Review 10/21/2022 11/15/2023 1 1 Reason Comments Cough Pt reported chest co ngestion, x2 wks, SOB, wheezing. Reason Comments Results Reason Comments Follow-up New H&P was previous [place] patient Specialty Diagnoses / Procedures Referred By [place] segal Referred To Contact Nutrition and Dietetics Diagnoses Obesity, morbid, BMI 40.0-49.9 Gastroesophageal reflux disease, unspecified whether esophagitis present Type 2 diabetes mellitus without complication, unspecified whether senior living insulin use Essential hypertension Thor Cruz, DO [address] [place] [address] Referral ID Status Reason Start Date Expiration Date V isits Requested Visits Authorized [id number] New Request 09/11/2022 10/06/2023 1 1 Reason Comments Follow-up Eating Disorder Reason Comments Pre-op Exam Pre op nader [facility] Specialty Diagnoses / Procedures [facility] Referred To Contact Diagnoses Obesity, morbid, BMI 40.0-49.9 Type 2 diabetes mellitus without complication, with long-term current use of insulin Obesity, morbid, BMI 40.0-49.9 [E66.01] Type 2 diabetes mellitus without complication, with long-term current use of insulin [E11.9, Z79.4] Procedures PA LAP GASTRIC BYPASS/NADER-EN-Y BYPASS GASTRIC W/ NADER-EN-Y GASTROENTEROSTOMY LAPAROSCOPIC ROBOTIC Thor Cruz, DO [address] [place] [address] [facility] Referral ID Status Reason Start Date Expiration Date Visits Re quested Visits Authorized [id number] 1 1 Reason Comments Post Op Visit 2 wk post op RNY Reason Comments Other Adrenal nodule Specialty Diagnoses / Procedures [facility] Referred To Contact Radiology Diagnoses Left renal mass Procedures MR abdomen w and wo contrast Hussein Napier MD [address] [facility] [address] [place] [address] Referral ID Status Reason Start Date Expiration Date Visits Re quested Visits Authorized [id number] Closed 07/03/2022 12/30/2022 1 1 Reason Comments Post Op Visit 1 month follow up s/ p nader-en-y gastric bypass performed by Dr. Thor Cruz DO Reason Comments Follow-up Renal mass Specialty Diagnoses / Procedures Referred By [place] segal Referred To Contact Registered Dietitian / Nutrition and Dietetics Diagnoses 2 month post op Procedures FOLLOW-UP - Nahid Ortiz Karthik, RD [address] [place] [address] Referral ID Status Reason Start Date Expiration Date V isits Requested Visits Authorized [id number] Pending Review 02/10/2023 03/06/2024 1 1 Reason Comments Post Op Visit 3 months post op Rou x-en-Y gastric bypass Care Teams (unrecognized sec tion and content) Operator Catalyst Concentration Relationship Specialty Start Date End Date Kate Spencer DO PCP - General Family Practice 04/16/15 Operator Catalyst Concentration Relationship Specialty Start Date End Date Kate Spencer DO [address] [place] [phone] PCP - General Family Medicine 01/22/21 Operator Catalyst Concentration Relationship Specialty Start Date End Date Kate Spencer DO [address] [place] [phone] PCP - General Family Medicine 01/22/21 Operator Catalyst Concentration Relationship Specialty Start Date End Date Kate Spencer DO [address] [place] [phone] PCP - General Family Medicine 01/22/21 Operator Catalyst Concentration Relationship Specialty Start Date End Date Kate Spencer DO [address] [place] [phone] PCP - General Family Medicine 01/22/21 Operator Catalyst Concentration Relationship Specialty Start Date End Date Kate Spencer DO [address] [place] [phone] PCP - General Family Medicine 01/22/21 Operator Catalyst Concentration Relationship Specialty Start Date End Date Kate Spencer DO [address] [place] [phone] PCP - General Family Medicine 01/22/21 Operator Catalyst Concentration Relationship Specialty Start Date End Date Kate Spencer DO [address] [place] [phone] PCP - General Family Medicine 01/22/21 Operator Catalyst Concentration Relationship Specialty Start Date End Date [facility] [address] [place] [address] PCP - General 03/18/22 Hussein Napier MD [address] [place] [address] Surgeon Urology 03/06/22 Operator Catalyst Concentration Relationship Specialty Start Date End Date [facility] [address] [place] [address] PCP - General 03/18/22 Hussein Napier MD [address] [place] [address] Surgeon Urology 03/06/22 Operator Catalyst Concentration Relationship Specialty Start Date End Date [facility] [address] [place] [address] PCP - General 03/18/22 Hussein Napier MD [address] [place] [address] Surgeon Urology 03/06/22 Operator Catalyst Concentration Relationship Specialty Start Date End Date Kate Spencer DO [address] [place] [phone] PCP - General Family Medicine 01/22/21 Operator Catalyst Concentration Relationship Specialty Start Date End Date [facility] [address] [place] [address] PCP - General 03/18/22 Hussein Napier MD [address] [place] [address] Surgeon Urology 03/06/22 Operator Catalyst Concentration Relationship Specialty Start Date End Date [facility] [address] [place] [address] PCP - General 03/18/22 Hussein Napier MD [address] [place] [address] Surgeon Urology 03/06/22 Operator Catalyst Concentration Relationship Specialty Start Date End Date Kate Spencer DO [address] [place] [phone] PCP - General Family Medicine 01/22/21 Scheduled Active and Recently Administ ered Medications (unrecognized section and content) Continuous Medication Order 12/07/2022 12/08/2022 12/09/2022 Lactated ringers 1,000 mL with Potassium chloride 20 mEq IV solution Intravenous, CONTINUOUS, Starting on Thu12/08/22 at 1300, Until Thu12/09/22 at 1627, Post-op/Post-Proc 1404 ($$New Bag$$ - Provider: Janessa Arthur RN) 0326 ($$New Bag$$ - Provider: Nilsa Mcfadden RN) Lactated ringers IV solution (CANCELED) Intravenous, at 100 mL/hr, CONTINUOUS, Starting on Thu12/08/22 at 0715, Until Thu12/08/22 at 1249, Pre-op/Pre-Proc 0740 ($$New Bag$$ - Provider: Ksenia Cruz RN)0755 ($$New Bag$$ - Provider: Ksenia Cruz RN) PRN Medication Order 12/07/2022 12/08/2022 12/09/2022 diphenhydrAMINE (BENADRYL) injection 25-50 mg 25-50 mg, Intravenous, EVERY 4 HOURS NEEDED, Starting on Thu12/08/22 at 1342, Until Thu12/09/22 at 1627, Itching, Sleep, insomnia, Post-op/Post-Proc Enalaprilat (VASOTEC) injection 1.25 mg 1.25 mg, Intravenous, EVERY 6 HOURS NEEDED, Starting on Thu12/08/22 at 1342, Until Thu12/09/22 at 1627, for SBP greater than 150 mm/Hg, Post-op/Post-Proc HYDROmorphone (DILAUDID) injection 0.5 mg 0.5 mg, Intravenous, EVERY 4 HOURS NEEDED, Starting on Thu12/08/22 at 1342, Until Thu12/09/22 at 1627, Other, Increase in reported pain to moderate or severe between available doses of PO oxycodone, Post-op/Post-Proc oxyCODONE (ROXICODONE) oral solution 10 mg(Linked Group 2) 10 mg, Oral, EVERY 4 HOURS NEEDED, Starting on Thu12/08/22 at 1342, Until Thu12/09/22 at 1627, Severe Pain, Post-op/Post-Proc 1830 (See Alternative - Provider: Janessa Arthur RN) oxyCODONE (ROXICODONE) oral solution 5 mg(Linked Group 2) 5 mg, Oral, EVERY 4 HOURS NEEDED, Starting on Thu12/08/22 at 1342, Until Thu12/09/22 at 1627, Moderate Pain, Post-op/Post-Proc 1830 (Given - Provider: Janessa Arthur RN) Promethazine (PHENERGAN) 12.5 mg in Sodium chloride 0.9%, with overfill 60.5 mL (total volume) IVPB 12.5 mg, Intravenous, at 121-242 mL/hr, Administer over 15-30 Minutes, EVERY 6 HOURS NEEDED, Starting on Thu12/08/22 at 1249, Until Thu12/09/22 at 1627, Other, Nausea/Vomiting (2nd Line), Extravasation Risk, Post-op/Post-Proc 2119 ($$New Bag$$ - Provider : Nilsa Mcfadden RN) Sodium chloride 0.9 % irrigation (CANCELED) NEEDED, Starting on Thu12/08/22 at 1014, Until Thu12/08/22 at 1243, Intra-op/Intra-Proc 1014 (Given - Provider: Kulwinder Cruz, DO - Comment: on sterile field as needed) Sodium chloride 0.9% IV solution (COMPLETED) CONTINUOUS NEEDED, Starting on Thu12/08/22 at 1014, Until Discontinued, Intra-op/Intra-Proc 1014 ($$New Bag$$ - Provider : Thor Cruz, DO - Comment: used with power cage operator as needed) Linked Groups Order Group 1: insulin lispro (HumaLOG) injectionJump to med Subcutaneous, 4 TIMES DAILY WITH MEALS & AT BEDTIME, First dose on Thu12/08/22 at 1700, Until Discontinued
Sliding Scale parameters: Blood glucose under 70 = call physician; 151 - 200 = 2 units; 201 - 250 = 4 units; 251 - 300 = 6 units; 301 - 350 = 8 units; 351 - 400 = 10 units; Over 400 = call physician.
And Glucose (POC device) (CANCELED) Routine, 4 TIMES DAILY BEFORE MEALS & AT BEDTIME, First occurrence on Thu12/08/22 at 1530, Until Specified And Glucose (POC device) (CANCELED) Routine, ONE TIME, On Thu12/08/22 at 1523, For 1 occurrence
For all Blood Glucose LESS THAN 70 mg/dL, recheck 20 min after treatment then notify physician. And glucose chewable tablet CHEW 16-32 gJump to med 16-32 g (4-8 tablet), Oral, SEE ADMIN INSTRUCTIONS, Starting on Thu12/08/22 at 1522, Until Thu12/09/22 at 1627
If patient is alert and able to tolerate oral medications and blood glucose 69 - 50 mg/dL: give 4 chew tabs, if blood glucose 49 - 20 mg/dL: give 8 chew tabs. Notify physician and repeat blood glucose in 20 minutes. May repeat treatment x 1 if blood glucose less than 60 mg/dL. For alternative treatment options (juice, etc.) refer to the hypoglycemia management protocol on [employer]: R-MB-Ntgnkcomidgm Management Protocol.
And Dextrose 10% IV solution 250 mLJump to med 250 mL, Intravenous, at 999 mL/hr, SEE ADMIN INSTRUCTIONS, Starting on Thu12/08/22 at 1522, Until Thu12/09/22 at 1627
Give Dextrose 10% 250 mL IV x 1 at a rate of 999 mL/hr for blood glucose LESS THAN 20 mg/dL or any blood glucose LESS THAN 70 mg/dL and patient has an altered level of consciousness, unable to swallow, or NPO. Notify physician and repeat blood glucose in 20 minutes. May repeat x 1 if repeat blood glucose less than 60 mg/dL
And NOTIFY PHYSICIAN, Blood Glucose LESS THAN 70 mg/dl or greater than 400 mg/dl (CANCELED) Routine, CONTINUOUS, Starting on Thu12/08/22 at 1523, Until Specified
Who to Notify: MULTIM[employer] AUTHOR/Physician
For all Blood Glucose LESS THAN 70 mg/dl, or greater than 400 mg/dl notify [employer] AUTHOR/Physician Group 2: oxyCODONE (ROXICODONE) oral solution 5 mgJump to med 5 mg, Oral, EVERY 4 HOURS NEEDED, Starting on Thu12/08/22 at 1342, Until Thu12/09/22 at 1627, Moderate Pain, Post-op/Post-Proc Or oxyCODONE (ROXICODONE) oral solution 10 mgJump to med 10 mg, Oral, EVERY 4 HOURS NEEDED, Starting on Thu12/08/22 at 1342, Until Thu12/09/22 at 1627, Severe Pain, Post-op/Post-Proc FOR RECORDS PERTAINING TO PATIENTS WHO ARE OR HAVE BEEN ENROLLED IN A CHEMICAL DEPENDENCY/SUBSTANCEABUSE PROGRAM, SOME INFORMATION MAY BE OMITTED. This clinical summary was aggregated from multiple sources. Caution should be exercised in using it in the provision of clinical care. This summary normalizes information from multiple sources, and as a consequence, information in this document may materially change the coding, format and clinical context of patient data. In addition, data may be omitted in some cases. CLINICAL DECISIONS SHOULD BE BASED ON THE PRIMARY CLINICAL RECORDS. [employer] [facility]. provides no warranty or guarantee of the accuracy or completeness of information in this document.
== END | disposition home or self-care (01) ==
LOC: MRI 10:48
PROVIDERS: PCP Family Medicine; Referring Provider Anesthesiology Pain Medicine; Visit Provider Anesthesiology Pain Medicine
DX: M54.16 Radiculopathy, lumbar region (principal)
CPT/HCPCS: 72148

== ENCOUNTER → 2023-05-30 | Outpatient (CLI) | payer OTHER, SELFPAY ==
--- NOTE | 2023-05-30 08:40 | CT_ITS ---
INDICATION: pain EXAMINATION: CT LUMBAR SPINE - CT Spine Lumbar W/O Contrast Injection TECHNIQUE: Helically acquired images were obtained of the lumbar spine. 2D reformats were reviewed. A radiation dose optimization technique was used for this scan. IV Contrast dosage and agent: None. RADIATION DOSAGE (If Supplied By Facility): CTDIvol = ( 32.85 ) mGy, DLP = ( 847.91 ) mGycm COMPARISON: Prior study dated: Lumbar spine series 05/20/2023 FINDINGS: VERTEBRAE: No acute fracture. No discrete lytic or blastic abnormality observed. Normal alignment. DISCS and SPINAL CANAL: Stable loss of disc space height at L5-S1. No critical stenosis. VISUALIZED ABDOMEN: Visualized abdominal aorta is not dilated. CT/Spine Lumbar without Contrast IMPRESSION: Stable degenerative disc disease at L5-S1. No acute bony abnormality or significant lumbar stenosis. Electronically Signed: Chema Pearl MD at 22:44 EST ,
--- OUTSIDE RECORDS SUMMARY | 2023-05-30 08:42 | XMS RPT_ITS | CCD ---
Author Name Unknown Address [address] [place] [address] Organization [facility] Care Team Providers Care [employer] Chief Scientist Name Role Phone Adrienne KarthikMiles Unavailable Unavailable Malys, Kate A Unavailable Unavailable Malys DO, Kate A Primary Care Provider [phone] Malys DO, Kate A Primary Care Provider MALYS, KATE A Primary Care Unavailable MARIELY GARCIA Referring Unavailable MALYS, KATE A Primary Care Unavailable Malys DO, Kate Primary Care Provider Malys DO, Kate Primary Care Provider [phone] MALYS, KATE Primary Care Unavailable CONSULT, GENERAL MEDICINE Consulting UnavaTHOR Johnson Admitting Unavailable THOR CRUZ Attending Unavailable THOR CRUZ Referring Unavailable MALYS, KATE Primary Care Unavailable THOR CRUZ Attending Unavailable THOR CRUZ Referring Unavailable Hussein Napier MD Unavailable [facility] Primary Care Provider Unav ailable WILLIE, ARON Attending Unavailable THOR CRUZ Referring Unavailable MALYS, [...] SELF Referring Unavailable SELF, SELF Referring Unavailable RASHAWNOFFKARTHIK Attending Unavailable MALYS, KATE Primary Care Unavailable ROJELIO MCGINNIS Attending Unavailable SELF, SELF Referring Unavailable MALYS, KATE Primary Care Unavailable SELF, SELF Referring Unavailable KARTHIK DIALLO Attending Unavailable MALYS, KATE Primary Care Unavailable SELF, SELF Referring Unavailable BOROFFKARTHIK Attending Unavailable MALYS, KATE Primary Care Unavailable EDGARDO OSMAN Attending Unavailable MALYS, KATE Primary Care Unavailable SELF, SELF Referring Unavailable SELF, SELF Referring Unavailable THOR CRUZ Attending Unavailable MALYS, KATE Primary Care Unavailable EDGARDO OSMAN Attending Unavailable THOR CRUZ Referring Unavailable MALYS, KATE Primary Care Unavailable SELF, SELF Referring Unavailable ROJELIO MCGINNIS Attending Unavailable MALYS, KATE Primary Care Unavailable Hussein Napier MD Unavailable NAPIER, HUSSEIN Attending Unavailable NAPIER, HUSSEIN Referring Unavailable [facility] Primary Care Unavailable NAPIER, HUSSEIN Attending Unavailable NAPIER, HUSSEIN Referring Unavailable [facility] Primary Care Unavailable NAPIER, HUSSEIN Attending Unavailable NAPIER, HUSSEIN Referring Unavailable [facility] Primary Care Unavailable NAPIER, HUSSEIN Attending Unavailable [facility] Primary Care Unavailable NAPIER, HUSSEIN Attending Unavailable [facility] Primary Care Unavailable NAPIER, HUSSEIN Attending Unavailable [facility] Primary Care Unavailable Allergies Allergy Classification Reported Allergen(s) Allergy Type Date of Onset Reaction(s) Facility (3 sources) Penicillin; Translations: [PENICILLIN] Drug Allergy 05-10-2015 [facility] (20 sources) Penicillins Propensity to adverse reactions to drug 05-10-2015 [facility] Medications Current Medications Medication Drug Class(es) [...] Onset: 12-08-2022 12-09-2022 Chronic Chronic kidney disease (10 sources) Chronic renal insufficiency; Translations: [Chronic kidney disease, unspecified] Onset: 03-24-2022 03-24-2022 Chronic Congestive heart failure; nonhypertensive (10 sources) Congestive heart failure; Translations: [Heart failure, unspecified] Onset: 03-24-2022 03-24-2022 Chronic Diabetes mellitus with complications (1 source) Hyperglycemia due to type 2 diabetes mellitus; Translations: [Type 2 diabetes mellitus with hyperglycemia] Onset: 11-13-2022 11-13-2022 Chronic Diabetes mellitus without complication (20 sources) Type 2 diabetes mellitus; Translations: [Type 2 diabetes mellitus without complications] Onset: 05-17-2015 05-17-2015 Chronic Disorders of lipid metabolism (10 sources) Hyperlipidemia; Translations: [Hyperlipidemia, unspecified] Onset: 03-24-2022 03-24-2022 Chronic Esophageal disorders (20 sources) Rodriguez's esophagus; Translations: [Rodriguez's esophagus without dysplasia] Onset: 05-10-2015 05-10-2015 Chronic Essential hypertension (20 sources) Essential hypertension; Translations: [Essential (primary) hypertension] Onset: 05-17-2015 05-17-2015 Chronic Miscellaneous mental health disorders (3 sources) Binge eating disorder; Translations: [Binge eating disorder] Onset: 10-27-2022 10-27-2022 Chronic Mood disorders (3 sources) Recurrent major depression in full remission; Translations: [Major depressive disorder, recurrent, in full remission] Onset: 10-27-2022 10-27-2022 Chronic Other aftercare (4 sources) USP (current) use of insulin; Translations: [USP (current) use of insulin] Onset: 12-08-2022 Episodic Other diseases of kidney and ureters (18 sources) Renal mass; Translations: [Other specified disorders of kidney and ureter] Onset: 03-24-2022 03-24-2022 Chronic Other diseases of kidney and ureters (2 sources) Other specified disorders of kidney and ureter; Translations: [Other specified disorders of kidney and ureter] Onset: 03-24-2022 Chronic Other endocrine disorders (3 sources) Adrenal mass; Translations: [Other specified disorders of adrenal gland] 07-03-2022 Chronic Other endocrine disorders (2 sources) Other specified disorders of adrenal gland; Translations: [Other specified disorders of adrenal gland (HCC)] Onset: 01-22-2023 Chronic Other gastrointestinal disorders (1 source) Intestinal [...] Onset: 12-09-2022 12-09-2022 Chronic Residual codes; unclassified (19 sources) Obstructive sleep apnea syndrome; Translations: [Obstructive sleep apnea (adult) (pediatric)] Onset: 05-17-2015 05-17-2015 Chronic Residual codes; unclassified (2 sources) Obstructive sleep apnea (adult) (pediatric); Translations: [Obstructive sleep apnea (adult) (pediatric)] Onset: 12-08-2022 Chronic Residual codes; unclassified (10 sources) 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; Translations: [Dependence on other enabling machines and devices] Onset: 03-24-2022 03-24-2022 Chronic Respiratory failure; insufficiency; arrest (adult) (10 sources) Dependence on supplemental oxygen; Translations: [Dependence on supplemental oxygen] Onset: 03-24-2022 03-24-2022 Chronic Unclassified (1 source) Unknown / UNK(Unknown) Onset: 11-06-2017 Past or Other Problems Problem Classification Problem Date Documented Da te Episodic/Chronic Unclassified (1 source) K22.70 Onset: 11-06-2017 Results Test Name Value Interpretation Reference Range Facil ity Vital Signs Date Time Vital Sign Value Performing Clinician Facility 05-28-2023 13:10-0500 Body height 162.6 cm Hussein Napier MD Work Phone: [facility] 05-28-2023 13:10-0500 Body mass index (BMI) [Ratio] 35.19 kg/m2 Hussein Napier MD Work Phone: [facility] 05-28-2023 13:10-0500 Body weight 92.99 kg Hussein Napier MD Work Phone: [facility] 03-11-2023 13:34-0500 Body height 165.1 cm Rojelio Mcginnis CNP Work Phone: [facility] 03-11-2023 13:34-0500 Body mass index (BMI) [Ratio] 37.11 kg/m2 Rojelio Mcginnis APPLICATION DEVELOPMENT PROJECT MANAGER Work Phone: [facility] 03-11-2023 13:34-0500 Body weight 101.15 kg Rojelio Mcginnis CNP Work Phone: [facility] 03-11-2023 13:34-0500 Diastolic blood pressure 62 mm[Hg] Rojelioyesica Mcginnis APPLICATION DEVELOPMENT PROJECT MANAGER Work Phone: [facility] 03-11-2023 13:34-0500 Heart rate 76 /min Rojelio Mcginnis APPLICATION DEVELOPMENT PROJECT MANAGER Work Phone: [facility] 03-11-2023 13:34-0500 Respiratory rate 21 /min Rojelio Mcginnis APPLICATION DEVELOPMENT PROJECT MANAGER Work Phone: [facility] 03-11-2023 13:34-0500 SaO2% (BldA) [Mass fraction] 95 % Rojelioyesica Mcginnis APPLICATION DEVELOPMENT PROJECT MANAGER Work Phone: [facility] 03-11-2023 13:34-0500 Systolic blood pressure 116 mm[Hg] Rojelioyesica Mcginnis APPLICATION DEVELOPMENT PROJECT MANAGER Work Phone: [facility] 02-10-2023 13:04-0400 Body mass index (BMI) [Ratio] 38.97 kg/m2 Karthik Diallo RD Work Phone: [facility] 02-10-2023 13:04-0400 Body weight 106.[address] Work Phone: [facility] 01-22-2023 13:36-0400 Body height 162.6 cm Hussein Napier MD Work Phone: [facility] 01-22-2023 13:36-0400 Body mass index (BMI) [Ratio] 41.2 kg/m2 Hussein Napier MD Work Phone: [facility] 01-22-2023 13:36-0400 Body weight 108.86 kg Hussein Napier MD Work Phone: [facility] 01-07-2023 13:21-0400 Body height 165.1 cm Rojelio Mcginnis APPLICATION DEVELOPMENT PROJECT MANAGER Work Phone: [facility] 01-07-2023 13:21-0400 Body mass index (BMI) [Ratio] 41.17 kg/m2 Rojelio Mcginnis APPLICATION DEVELOPMENT PROJECT MANAGER Work Phone: [facility] 01-07-2023 13:21-0400 Body weight 112.22 kg Rojelio Mcginnis APPLICATION DEVELOPMENT PROJECT MANAGER Work Phone: [facility] 01-07-2023 13:21-0400 Diastolic blood pressure 60 mm[Hg] Rojelio Mcginnis APPLICATION DEVELOPMENT PROJECT MANAGER Work Phone: [facility] 01-07-2023 13:21-0400 Heart rate 90 /min Rojelio Mcginnis APPLICATION DEVELOPMENT PROJECT MANAGER Work Phone: [facility] 01-07-2023 13:21-0400 Respiratory rate 21 /min Rojelio Mcginnis APPLICATION DEVELOPMENT PROJECT MANAGER Work Phone: [facility] 01-07-2023 13:21-0400 SaO2% (BldA) [Mass fraction] 95 % Rojelio Mcginnis APPLICATION DEVELOPMENT PROJECT MANAGER Work Phone: [facility] 01-07-2023 13:21-0400 Systolic blood pressure 100 mm[Hg] Rojelio Mcginnis APPLICATION DEVELOPMENT PROJECT MANAGER Work Phone: [facility] 12-25-2022 13:46-0400 Body height 165.1 cm Thor Cruz DO Work Phone: [email or web address] 12-25-2022 13:46-0400 Body mass index (BMI) [Ratio] 41.93 kg/m2 Thor Cruz DO Work Phone: [email or web address] 12-25-2022 13:46-0400 Body weight 114.31 kg Thor Cruz DO Work Phone: [email or web address] 12-25-2022 13:46-0400 Diastolic blood pressure 69 mm[Hg] Thor Cruz DO Work Phone: [email or web address] 12-25-2022 13:46-0400 Heart rate 87 /min Thor Cruz DO Work Phone: [email or web address] 12-25-2022 13:46-0400 Systolic blood pressure 128 mm[Hg] Thor Cruz DO Work Phone: [email or web address] 12-09-2022 13:20-0400 Diastolic blood pressure 55 mm[Hg] Thor Cruz DO Work Phone: [email or web address] 12-09-2022 13:20-0400 Heart rate 97 /min Thor Cruz DO Work Phone: [email or web address] 12-09-2022 13:20-0400 Respiratory rate 18 /min Thor Cruz DO Work Phone: [email or web address] 12-09-2022 13:20-0400 SaO2% (BldA) [Mass fraction] 98 % Thor Cruz DO Work Phone: [email or web address] 12-09-2022 13:20-0400 Systolic blood pressure 117 mm[Hg] Thor Cruz DO Work Phone: [email or web address] 12-09-2022 11:50-0400 Body temperature 97.11 [degF] Thor Cruz DO Work Phone: [email or web address] 12-09-2022 04:00-0400 Body mass index (BMI) [Ratio] 47.23 kg/m2 Thor Cruz DO Work Phone: [email or web address] 12-09-2022 04:00-0400 Body weight 124.8 kg Thor Cruz DO Work Phone: [email or web address] 12-08-2022 12:51-0400 Body height 162.6 cm Thor Cruz DO Work Phone: [email or web address] 11-13-2022 14:00-0400 Body height 162.6 cm Thor Cruz DO Work Phone: [email or web address] 11-13-2022 14:00-0400 Body mass index (BMI) [Ratio] 48.23 kg/m2 Thor Cruz DO Work Phone: [email or web address] 11-13-2022 14:00-0400 Body weight 127.46 kg Thor Cruz DO Work Phone: [email or web address] 11-13-2022 14:00-0400 Diastolic blood pressure 74 mm[Hg] Thor Sweetie DO Work Phone: [email or web address] 11-13-2022 14:00-0400 Heart rate 102 /min Thor [facility] DO [facility] 11-13-2022 14:00-0400 SaO2% (BldA) [Mass fraction] 98 % Thor Cruz DO Work [facility] 11-13-2022 14:00-0400 Systolic blood pressure 112 mm[Hg] Thor Cruz DO Work Phone: [facility] 10-21-2022 08:51-0400 Body mass index (BMI) [Ratio] 48.61 kg/m2 Karthik Boroff RD Work Phone: [facility] 10-21-2022 08:51-0400 Body weight 128.[address] Work Phone: [facility] 10-02-2022 09:07-0400 Body mass index (BMI) [Ratio] 49.44 kg/m2 Karthik Boroff RD Work Phone: [facility] 10-02-2022 09:07-0400 Body weight 130.[address] Work Phone: [facility] 09-11-2022 09:55-0400 Body height 162.6 cm Thor Cruz DO Work Phone: [facility] 09-11-2022 09:55-0400 Body mass index (BMI) [Ratio] 49.81 kg/m2 Thor Cruz DO [facility] 09-11-2022 09:55-0400 Body weight 131.63 kg Thor Cruz DO Work Phone: [email or web address] 09-11-2022 09:55-0400 Diastolic blood pressure 70 mm[Hg] Thor Cruz DO Work Phone: [employer] [facility] 09-11-2022 09:55-0400 Heart rate 93 /min Thor Cruz DO [facility] 09-11-2022 09:55-0400 Respiratory rate 19 /min Thor Cruz DO Work Phone: [facility] 09-11-2022 09:55-0400 SaO2% (BldA) [Mass fraction] 95 % Thor Cruz DO Work Phone: [facility] 09-11-2022 09:55-0400 Systolic blood pressure 128 mm[Hg] Thor Cruz DO Work Phone: [facility] 07-03-2022 14:23-0500 Body height 162.6 cm Hussein Napier MD Work Phone: [facility] 07-03-2022 14:23-0500 Body mass index (BMI) [Ratio] 46.69 kg/m2 Hussein Napier MD Work Phone: [facility] 07-03-2022 14:23-0500 Body weight 123.38 kg Hussein Napier MD Work Phone: [facility] 01-17-2022 19:01-0400 Body temperature 97.3 [degF] Mariely Athy PA-C Work Phone: [facility] 01-17-2022 19:01-0400 Diastolic blood pressure 60 mm[Hg] Mariely Athy PA-C Work Phone: [facility] 01-17-2022 19:01-0400 Heart rate 72 /min Mariely Athy PA-C Work Phone: [facility] 01-17-2022 19:01-0400 Respiratory rate 22 /min Mariely Athy PA-C Work Phone: [facility] 01-17-2022 19:01-0400 SaO2% (BldA) [Mass fraction] 96 % Mariely Athy PA-C Work Phone: [facility] 01-17-2022 19:01-0400 Systolic blood pressure 128 mm[Hg] Mariely Athy PA-C Work Phone: [facility] Encounters Encounter Date Encounter Type Care Provider Facility Start: 05-28-2023 End: 05-28-2023 Office outpatient visit 25 minutes Hussein Napier MD Work Phone: [facility] Procedures Date Procedure Procedure Detail Performing Clinician Start: 12-09-2022 Gluc bld gluc mntr dev cleared fda spec home use Thor Cruz DO Work Phone: Start: 12-09-2022 Complete blood count with white cell differential, automated Thor Galvez Cruz DO Work Phone: Start: 12-09-2022 Gluc bld gluc mntr dev cleared fda spec home use Thor Cruz DO Work Phone: Start: 12-09-2022 Basic metabolic panel calcium total Thor Cruz DO Work Phone: Start: 12-09-2022 Complete blood count with white cell differential, automated Thor Leonor Cruz DO Work Phone: Start: 12-08-2022 Gluc bld gluc mntr dev cleared fda spec home use Thor Leonor Cruz DO Work Phone: Start: 12-08-2022 Gluc bld gluc mntr dev cleared fda spec home use Thor Cruz DO Work Phone: Start: 12-08-2022 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 Karthik Diallo RD Work Phone: Start: 12-08-2022 Basic metabolic panel calcium total Thor Cruz DO Work Phone: Start: 12-08-2022 End: 12-08-2022 Laps gstr rstcv px w/byp nader-en-y limb <150 cm Thor Leonor Cruz DO Work Phone: Start: 12-08-2022 Basic metabolic panel calcium total Thor Leonor Sweetie DO Work Phone: Start: 12-08-2022 Blood group [...] Author Start: 09-27-2027 Lipid panel LIPID SCREENING [facility] Start: 01-29-2026 Lipid [facility] Start: 05-13-2024 Creatinine measurement Creatinine [facility] Start: 03-11-2024 Lipid panel LIPIDS [facility] Start: 12-30-2023 Creatinine measurement Creatinine [facility] Start: 12-03-2023 End: 12-03-2023 Telemedicine consultation with patient 12/03/2023 11:50 AM EDT Telemedicine [facility] [address] [place] [address] Hussein Napier MD [address] [facility] [address] [place], [place] [id number] [facility] Start: 11-26-2023 End: 05-28-2024 Creatinine [Mass/volume] in Serum or Plasma Creatinine, Serum Lab Routine Left renal mass Expected: 11/26/2023 (Approximate), Expires: 05/28/2024 [facility] Immunizations Immunization Date Immunization Notes Care Provider Fa cility 12-31-2020 influenza virus vaccine, unspecified formulation Thor Cruz DO Work Phone: [facility] 08-02-2020 COVID-19 vaccine, mR NA, Pfizer, 0.3 ML Thor Cruz DO Work Phone: [facility] 07-12-2020 COVID-19 vaccine, mR NA, Pfizer, 0.3 ML Thor Cruz DO Work Phone: [facility] Payers Date Payer Category Payer Medicare [id number] 2022 Medicare [id number] 2022 Medicare [id number] 2021 Medicaid [id number] 2021 Unknown JULIO MURRY [id number] 2021-Present [address] [place] [address] [id number] 2020 Medicaid [id number] 2020 Medicaid [id number] 2016 Unknown [id number] 1960 Unknown [id number] 1958 Unknown [id number] [id number] 1958 Unknown [id number] 1958 Unknown [id number] 1958 Unknown [id number] [id number] 1958 Unknown [id number] [id number] 1958 Unknown [id number] [id number] 1958 Unknown [id number] [id number] 1958 Unknown [id number] [id number] 1958 Unknown [id number] [id number] 1958 Unknown [id number] [id number] 1958 Unknown [id number] [id number] 1958 Unknown [id number] [id number] 1958 Unknown [id number] [id number] 1960 Unknown [id number] Social History Date Type Detail Facility Start: 01-17-2022 End: 03-24-2022 Tobacco smoking status NHIS Ex-smoker [facility] Start: 05-04-1975 End: 05-04-2005 History of tobacco use Current smoker [facility] Start: 05-04-1975 End: 05-04-2005 History of tobacco use Cigarette Smoker [facility] Start: 01-17-2022 End: 03-24-2022 Cigarettes smoked current (pack per day) - Reported 2 [facility] Start: 01-17-2022 End: 03-24-2022 Tobacco use and exposure Smokeless tobacco non-user [facility] Start: 01-17-2022 Alcohol intake Current non-dr 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 analyst 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 (finding) [facility] Start: 1960 Sex Assigned At Not on file [facility] Start: 01-07-2022 End: 01-22-2023 Exposure to SARS-CoV-2 (event) Not sure [facility] Start: 09-11-2022 End: 03-11-2023 Alcohol intake Current drinker of alcohol (finding) [facility] Start: 01-22-2021 Alcohol Comment once a year [facility] Start: 03-24-2022 End: 09-11-2022 Tobacco use panel [facility] Clinical Notes 01-17-2022 to 05-28-2023 Hussein Napier MD - 05/28/2023 1:40 PM Cecelia Hernández - 03/11/2023 1:15 PM Danna Mcginnis CNP - 03/11/2023 1:[address] - 02/10/2023 1:00 PM EDTDischarge Instructions Note Date & Type Note Facility 05-28-2023 History of Present illness Narrative Images from the original note were not included. Hussein Napier MD 05/28/2023 at 1:33 PM Office follow up PATIENT NAME: Nelia Barker DATE OF : 1960 TODAY'S DATE: 05/28/2023 CHIEF COMPLAINT: Chief Complaint Patient presents with renal mass Follow up Subjective: Ms. Barker is a 63 y.o. female who presents to the office for follow up of kidney lesion CT cryoabalation 03/24/22 MRI w and wo [...] from there. Patient thanked me for calling. MRI 05/2023 IMPRESSION: 1. Postablation changes in the left kidney. Redemonstration of peripheral thickened enhancement concerning for residual/recurrent neoplasm, similar to the prior study. 2. Indeterminate right adrenal nodule, similar to the prior study. Recommend adrenal mass protocol CT with washout calculations. 3. Subcentimeter left renal cysts including hemorrhagic left renal cyst. These do not require imaging follow-up. Report Dictated on Electronically Signed By: Abran Henson MD Electronically Signed Date/Time: 05/19/2023 11:10 AM EST Review of Systems Medications Current Outpatient Medications: [...] DR capsule, , Disp: , Rfl: insulin aspart protamine-insulin aspart (NovoLOG Mix 70-30) (70-30) 100 UNIT/ML injection, Inject under the skin 4 times daily (with meals and nightly). Sliding scale, Disp: , Rfl: insulin degludec (Tresiba) 100 UNIT/ML injection, Inject 30 Units under the skin Daily as needed., Disp: , Rfl: lisinopril 40 MG tablet, [...] , Rfl: cholecalciferol (Vitamin D-3) 1.25 MG (47566 UT) capsule, TAKE 1 CAPSULE BY MOUTH TWICE WEEKLY, Disp: , Rfl: dexAMETHasone (Decadron) 1 MG tablet, Take 1 tablet (1 mg) by mouth Once for 1 dose. At 10pm the night prior to labs being drawn, Disp: 1 tablet, Rfl: 0 ergocalciferol (Vitamin D-2) 1.25 MG (22925 UT) capsule, Take 50,000 Units by mouth [...] mg by mouth., Disp: , Rfl: insulin degludec (Tresiba FlexTouch) 200 UNIT/ML injection, , Disp: , Rfl: liraglutide (Victoza) 18 MG/3ML [...] gas, Inhale 2 L., Disp: , Rfl: monnokahwvoqhcp-utxfvqp-baueJKBhep n (Mytussin DAC) 30-10-100 MG/5ML solution, Take by mouth., Disp: , Rfl: Vitals: Ht 5' 4 (1.626 m) Wt 205 lb (93 kg) BMI 35.19 kg/m Physical Exam Physical Exam LABS: No [...] 103 03/24/2022 BUN 19 (H) 03/24/2022 CREATININE 0.85 05/13/2023 No components found for: LABURIN @LASTPROCPOC@ Pathology: Radiology: Impression/Plan: Nelia was seen today for renal mass. Diagnoses and all orders for this visit: Left renal mass (Primary) - MR abdomen w and wo contrast; Future - Creatinine, Serum; Future - Creatinine, Serum Imaging reviewed Looks to be stable area Recommend MRI in 6 months Follow up in about 6 months (around 11/26/2023) for MRI and then VV with me . Hussein Napier MD 05/28/23 1:33 PM documented in this encounter [facility] 03-11-2023 History of Present illness Narrative Office [...] 01/07/23 112.2 kg (247 lb 6.4 oz) SPOKANE: She is here today for her 3 [...] Surgery 16 minutes spent with patient on [id number] interaction, history/documentation, education, and coordination of care. documented in this encounter [facility] 02-10-2023 History of Present illness Narrative OUTPATIENT [...] 3.2 oz) 07/15/21 122.5 kg (270 lb) [place] body weight: 57 kg (125 lb 10.6 [...] and calcium citrate BID (600 MG)- from [employer] 1. iron and calcium by >2 hours 2. Taking calcium twice per day 3. Meeting all bariatric BED AND BREAKFAST COOK recommendations Diet Recall: Meal What Time Breakfast [...] Laterality: N/A; Surgeon: Thor Cruz DO; Location: [facility] GAL OR EGD W/ BX N/A 03/14/2021 Laterality: N/A; Surgeon: Gallito Yates MD; Location: [facility] ONT ENDOSCOPY HEART CATHETERIZATION 2020 no stents [...] Licensed Dietitian 02/10/23 documented in this encounter [facility] 01-22-2023 History of Present illness Narrative Images [...] , Rfl: cholecalciferol (Vitamin D-3) 1.25 MG (07813 UT) capsule, TAKE 1 CAPSULE BY MOUTH TWICE WEEKLY, Disp: , Rfl: dexAMETHasone (Decadron) 1 MG tablet, Take 1 tablet (1 mg) by mouth Once for 1 dose. At 10pm the night prior to labs being drawn, Disp: 1 tablet, Rfl: 0 DULAGLUTIDE SC, Inject under the skin., Disp: , Rfl: ergocalciferol (Vitamin D-2) 1.25 MG (88383 UT) capsule, Take 50,000 Units by mouth [...] gas, Inhale 2 L., Disp: , Rfl: piojgnhxwclkpkx-xheaczf-cqymTOOteu n (Mytussin DAC) 30-10-100 MG/5ML solution, Take [...] 01/22/23 1:51 PM documented in this encounter [facility] 01-12-2023 Telephone encounter Note Spoke with patient [...] from there. Patient thanked me for calling. [facility] Work Phone: 01-12-2023 Miscellaneous Notes Spoke with [...] me for calling. documented in this encounter [facility] 01-07-2023 History of Present illness Narrative Office [...] 12/09/22 124.8 kg (275 lb 2.2 oz) SPOKANE: Here today for her 1 month follow [...] Surgery 15 minutes spent with patient on timb-vc-ccym interaction, history/documentation, education, and coordination of care. documented in this encounter [facility] 12-29-2022 Telephone encounter Note Pt called to verify the phone number for [facility] in [facility]. States the number we gave her is out of service. I read her the phone number from [email or web address] in [place] and it is the same phone number. Pt thanked me and states that's the number she tried calling. States she will just go to the address and see if their open today. [facility] 12-29-2022 Miscellaneous Notes Pt called to verify the phone number for [employer] in [facility]. States the number we gave her is out of service. I read her the phone number from [email or web address] in [place] and it is the same phone number. Pt thanked me and states that's the number she tried calling. States she will just go to the address and see if their open today. documented in this encounter [facility] 12-25-2022 History of Present illness Narrative BARIATRIC [...] (H) 01/29/2021 Lab Results Component Value Date [id number] 70.5 09/26/2022 Lab Results Component Value Date FOLATE 10.8 09/26/2022 Lab Results Component Value Date [id number] 169.7 09/26/2022 IMPRESSION: S/P RYGB PLAN: DISPOSITION: Return in 2 weeks for follow up visit EDUCATION: Pt encouraged to continue with positive lifestyle changes and take vitamins daily Start exercising Start vitamins Advance to pureed diet Thor Cruz DO documented in this encounter [facility] 12-09-2022 Miscellaneous Notes Pt leaves the floor at this time ambulatory accompanied by her sister and Talia AL, going home. IV removed, VS stable, discharge instructions and medications reviewed with pt, cell phone and silica dry press helper and sealed Lyjf-Io-Hhvv package and all other belongings sent with [...] OF SERVICE: 12/08/2022 NAME: Nelia Barker CSN: [id number] PRE OP DIAGNOSES: Morbid obesity with DM [...] ICG for perfusion SURGEON: Thor Cruz DO CHEMICALS FERMENTATION OPERATOR: Surgical Staff: Market Director: Samanta Reyes RN; Cammy Elise RN [place]aroo Manager Welding: Taylor Caruso Labeler: Viktor Rubin ANESTHESIA: GETA ESTIMATED BLOOD LOSS IN MLS: 20 COMPLICATIONS: None SPECIMEN: None PREOPERATIVE NOTE: The contemplated operative procedure, risks, benefits and alternatives to this procedure have been discussed with this patient and/or legal ambulatory services representative. The patient and/or legal ambulatory services representative acknowledge(s) understanding of the above and [...] a figure of 8 fashion. The da Laatsha robot was then undocked and the remaining [...] DO 12:16 PM documented in this encounter [facility] 12-09-2022 Nurse Note Pt leaves the floor at this time ambulatory accompanied by her sister and Talia AL, going home. IV removed, VS stable, discharge instructions and medications reviewed with pt, cell phone and silica dry press helper and sealed Batc-Ns-Ncvl package and all other belongings sent with pt. [facility] 12-09-2022 Plan of care note Problem: [...] discharge/transition of care. Outcome: Adequate for Discharge [facility] 12-09-2022 Hospital course Narrative Discharge Summary Name: Nelia Barker Age: 62 y.o. Birthday: 1960 Admit Date: 12/08/2022 6:33 AM Discharge Date: 12/09/22 Discharge Time: 1223 Discharge Unit: [facility] Admission Information Admitting Physician: Thor Cruz [...] Commonly known as: TYLENOL Drisdol 1.25 MG (85712 UT) CAPS Generic drug: ergocalciferol FeroSul 325 (65 Fe) MG TABS Generic drug: ferrous sulfate furOSEmide 20 MG TABS Commonly known as: LASIX glipiZIDE 10 MG tablet regular release Commonly known as: GLUCOTROL Magnesium Oxide -Mg Supplement 500 MG TABS TRESIBA SC Trulicity 4.5 MG/0.5ML SOPN Generic drug: Dulaglutide vitamin D3 1.25 MG (21323 UT) CAPS Follow-up: No follow-up provider specified. Upcoming Appointments (up to five)-Some appointments for Medical Center outpatient clinics or diagnostic testing locations are not displayed below Provider Department Dept Phone 12/25/2022 1:45 PM Thor Cruz [facility] [phone] 02/09/2023 1:00 PM Karthik [facility] Nutrition and Dietetics [phone] documented in this encounter [facility] 12-09-2022 Hospital Discharge instructions Thor Cruz DO [...] blood pressure medications). Follow up with Dr. Cruz at your scheduled visit or call for an earlier appointment if having issues or concerns. documented in this encounter [facility] 12-09-2022 Nurse Note Assessment unchanged from previous unless otherwise noted. [facility] 12-09-2022 History of Present illness Narrative INPATIENT POST BARIATRIC SX NUTRITION ASSESSMENT Ms. Nelia Barker is a 62 y.o. female was admitted to [facility] for: 1. body mass index of 40.0-49.9 [...] (270 lb) 04/24/21 123.8 kg (273 lb) [place] body weight: 54.7 kg (120 lb 9.5 [...] Laterality: N/A; Surgeon: Gallito Yates MD; Location: [facility] ENDOSCOPY HEART CATHETERIZATION 2020 no stents [...] 12/09/2022 RBC 4.43 12/09/2022 B12 707 09/26/2022 [id number] 70.5 09/26/2022 FOLATE 10.8 09/26/2022 Nutrition Diagnosis [...] Setting Residence ([place]) Lives With child(james) (adult maggie and her s/o) Number of stairs to enter home 1+1 Stair Railings at Home entry - no rail Mobility Equipment Available none used Previous Level of Function Prior level ADL Overview Independent with all ADLs Bed Mobility/Transfers independent Ambulation Skills independent Assistive Device none used Level of Ambulation community PRIOR LEVEL [facility] Basic Mobility Inpatient Short Form Turning over in bed 4 - No Assistance Sitting/standing from chair 4 - No Assistance Moving from lying on back to sitting 4 - No Assistance Moving to and from bed to chair 4 - No Assistance Walk in hospital room 4 - No Assistance Climbing 3-5 steps with a railing 4 - No Assistance PRIOR LEVEL [facility] Mobility Raw Score 24 PRIOR LEVEL [facility] Mobility Functional Limitation/Modifier 0.00% Prior Functional Impairment [...] Dynamic Standing-Level of Assistance Independent Rolling/Turning Mobility [place] Level: Rolling/Turning independent Skilled Intervention/Details: Rolling/Turning education completed for proper log roll technique; pt completes without difficulty Supine to Sit Mobility [place] Level: Supine->Sit independent Sit to Stand Transfer [place] Level: Sit->Stand independent Stand to Sit Transfer [place] Level: Stand->Sit independent Gait Assessment [place] Level: Gait independent Ambulation Distance (Feet) 600 Skilled Intervention/Details - Gait gait speed and pattern WFL Stairs Assessment [place] Level: Stair Negotiation (denies stair training intervention, reports no difficulty at baseline and demonstrates strength and ROM appropriate for task) CURRENT [facility] Basic Mobility Inpatient Short Form Turning over in bed 4 - No Assistance Sitting/standing from chair 4 - No Assistance Moving from lying on back to sitting 4 - No Assistance Moving to and from bed to chair 4 - No Assistance Walk in hospital room 4 - No Assistance Climbing 3-5 steps with a railing 4 - No Assistance CURRENT [facility] Mobility Raw Score 24 CURRENT [facility] Mobility Functional Limitation/Modifier 0.00% Currently Impaired in [...] Laterality: N/A; Surgeon: Gallito Yates MD; Location: [facility] ENDOSCOPY HEART CATHETERIZATION 2020 no stents RELEASE CARPAL TUNNEL Right 2000 TUBAL LIGATION 1996 LAP CHOLECYSTECTOMY PT Assessment: Patient is a pleasant 62 yo female presenting to [facility] s/p lap nader-en-y gastric bypass 12/08/22 [...] any post discharge assistance. Please contact the health care social worker if needs arise. documented in this encounter [facility] 12-09-2022 Consult note Associated Order (s): IP CONSULT TO GENERAL MEDICINE Consultation Consult Date/Time: 12/09/22 8:05 AM Consulting Physician: Sweetie Reason for Consultation: Medical Management Hospital Course: Patient presented to [facility] for planned surgery with Dr. Cruz. Unfortunately, [...] 01/23/2021 Added automatically from request for surgery [id number] body mass index of 40.0-49.9 01/22/2021 Past Medical History: Diagnosis Date Asthma Rodriguez esophagus Congestive heart failure Diabetes mellitus Essential hypertension, benign Fatty liver GERD (gastroesophageal reflux disease) Heart failure, diastolic Hyperlipidemia DEVIN (obstructive sleep apnea) Renal disease stage 3 Past Surgical History: Procedure Laterality Date EGD W/ BX N/A 03/14/2021 Laterality: N/A; Surgeon: Gallito Yates MD; Location: [facility] ENDOSCOPY HEART CATHETERIZATION 2020 no stents RELEASE CARPAL TUNNEL Right 2000 TUBAL LIGATION 1996 LAP CHOLECYSTECTOMY Social History Tobacco Use Smoking status: Former Packs/day: 2.00 Years: 30.00 Total pack years: 60.00 Types: Cigarettes Start date: 1975 Quit date: 2005 Years since quittin.6 Smokeless tobacco: Never Substance [...] a month Cholecalciferol (vitamin D3) 1.25 MG (78448 UT) capsule TAKE 1 CAPSULE BY MOUTH TWICE WEEKLY 11/30/2022 ergocalciferol (Drisdol) 1.25 MG (53497 UT) capsule 1 capsule. FeroSul 325 (65 [...] Please note portions of this note utilized Bizen dictation software, please excuse any typographical or grammatical errors Associated attestation - Cachorro Sr MD - 12/09/2022 8:07 PM EDT I have independently interviewed and examined the patient. I have discussed waite elements of the care plan with the MODEL PHOTOGRAPHERS' and I agree with the findings and [...] and dr sweetie Price reviewed See orders [facility] 12-09-2022 Consult note Associated Order (s): IP CONSULT TO GENERAL MEDICINE Consultation Consult Date/Time: 12/09/22 8:05 AM Consulting Physician: Sweetie Reason for Consultation: Medical Management Hospital Course: Patient presented to [facility] for planned surgery with Dr. Cruz. Unfortunately, [...] 01/23/2021 Added automatically from request for surgery [id number] body mass index of 40.0-49.9 01/22/2021 Past Medical History: Diagnosis Date Asthma Rodriguez esophagus Congestive heart failure Diabetes mellitus Essential hypertension, benign Fatty liver GERD (gastroesophageal reflux disease) Heart failure, diastolic Hyperlipidemia DEVIN (obstructive sleep apnea) Renal disease stage 3 Past Surgical History: Procedure Laterality Date EGD W/ BX N/A 03/14/2021 Laterality: N/A; Surgeon: Gallito Yates MD; Location: [facility] ENDOSCOPY HEART CATHETERIZATION 2020 no stents RELEASE [...] a month Cholecalciferol (vitamin D3) 1.25 MG (57988 UT) capsule TAKE 1 CAPSULE BY MOUTH TWICE WEEKLY 11/30/2022 ergocalciferol (Drisdol) 1.25 MG (38663 UT) capsule 1 capsule. FeroSul 325 (65 [...] oxygen gas Inhale 2 L As directed. Trulicprabhu 4.5 MG/0.5ML Solution Pen-injector INJECT 0.5 ML [...] long-term current use of insulin Benign hypertension DEVNI (obstructive sleep apnea) S/P Nader-en-Y gastric bypass [...] Please note portions of this note utilized Bizen dictation software, please excuse any typographical or grammatical errors Associated attestation - Cachorro Sr MD - 12/09/2022 8:07 PM EDT I have independently interviewed and examined the patient. I have discussed waite elements of the care plan with the MODEL PHOTOGRAPHERS' and I agree with the findings and [...] reviewed See orders documented in this encounter [facility] 12-09-2022 Nurse Note Prior assessment unchanged, call light within reach. [facility] 12-09-2022 Nurse Note Patient appears asleep at this time, respirations even and unlabored. Call light within reach. [facility] 12-08-2022 Evaluation + Plan note Associated Problem(s): S/P Nader-en-Y gastric bypass Per Bariatric Surgery Pain relief IS Increase activity [facility] 12-08-2022 Evaluation + Plan note Associated Problem(s): Type 2 diabetes mellitus, with long-term current use of insulin Continue with SSI Accuchecks ac/hs Diabetic diet Screening A1C level [facility] 12-08-2022 Evaluation + Plan note Associated Problem(s): DEVIN (obstructive sleep apnea) Continue with CPAP/BIPAP therapy Continuous pulse oximetry and telemetry monitoring [facility] 12-08-2022 Evaluation + Plan note Associated Problem(s): GERD (gastroesophageal reflux disease) Continue PPI daily [facility] 12-08-2022 Evaluation + Plan note Associated Problem(s): Benign hypertension Continue with outpatient therapy Add prn for sbp >160 [facility] 12-08-2022 Evaluation + Plan note Associated Problem(s): Asthma Continue with aerosol breathing treatments [facility] 12-08-2022 Progress note Formatting of t his note might be different from the original. Approached for PT evaluation. Patient s/p bariatric surgery this date by Dr. Cruz. RN currently in with patient. Patient awake and alert but reports double vision at this time. Not yet ready to participate with PT. Will follow up tomorrow. [facility] 12-08-2022 Nurse Note Discharged from PACU in stable condition. Transported via bed to room 268. Bed placed in lowest position. Call light within reach. Report given to Rashawn PASCUAL. Sister at bedside. [facility] 12-08-2022 Nurse Note Patient transferred to PACU via bed, all side rails up Accompanied by Eusebio Lewis CRNA Oral airway in, hob elevated, patient in no obvious distress All monitors attached on arrival to PACU Report given to A oTny RN documented in this encounter [facility] 12-08-2022 Nurse Surgical operation note Patient transferred to PACU via bed, all side rails up Accompanied by Eusebio Lewis CRNA Oral airway in, hob elevated, patient in no obvious distress All monitors attached on arrival to PACU Report given to Rubin Jimenez RN [facility] 12-08-2022 Progress note Formatting of t his note might be different from the original. I certify that this patient requires inpatient services at this time. I anticipate the expected length of stay will include at least two midnights. Current treatment plan includes pain and nausea control. Plans for post hospitalization care will be discharge to home. [facility] 12-08-2022 Surgery Postoperative evaluation and management note Operative Report DATE OF SERVICE: 12/08/2022 NAME: Nelia Barker CSN: [id number] PRE OP DIAGNOSES: Morbid obesity with DM [...] ICG for perfusion SURGEON: Thor Cruz DO CHEMICALS FERMENTATION OPERATOR: Surgical Staff: Market Director: Samanta Reyes RN; Cammy Elise RN Jackaroo Manager Welding: Taylor Caruso Labeler: Viktor Castelan; Rachael Rubin ANESTHESIA: GETA ESTIMATED BLOOD LOSS IN MLS: 20 COMPLICATIONS: None SPECIMEN: None PREOPERATIVE NOTE: The contemplated operative procedure, risks, benefits and alternatives to this procedure have been discussed with this patient and/or legal ambulatory services representative. The patient and/or legal ambulatory services representative acknowledge(s) understanding of the above and [...] for recovery. Thor Cruz DO 12:16 PM [facility] 11-13-2022 History of Present illness Narrative [...] Laterality: N/A; Surgeon: Gallito Yates MD; Location: [facility] ENDOSCOPY RELEASE CARPAL TUNNEL Right 2000 TUBAL LIGATION 1996 LAP CHOLECYSTECTOMY Current Outpatient Medications Medication Sig Albuterol Sulfate 108 (90 Base) MCG/ACT Aerosol Powder, breath activated Inhale 2 puffs 4 times daily as needed for Shortness of Breath. atorvastatin 40 MG tablet Take by mouth. Cholecalciferol (vitamin D3) 1.25 MG (52430 UT) capsule TAKE 1 CAPSULE BY MOUTH [...] PM Bariatric Surgery documented in this encounter [facility] 10-27-2022 History of Present illness Narrative Bariatric [...] Edgardo Osman PsyD documented in this encounter [facility] 10-21-2022 History of Present illness Narrative OUTPATIENT [...] (271 lb) 02/04/21 122 kg (269 lb) [place] body weight: 54.7 kg (120 lb 9.5 [...] on a flour wrap 12 pm Snack Cataño or apple with a 1/4 cup of [...] with 45 mg iron (30 capsules) lot #[id number] exp 06/28 and she understands to not [...] 09/26/2022 IRON 50 09/26/2022 B12 707 09/26/2022 [id number] 70.5 09/26/2022 FOLATE 10.8 09/26/2022 BP Readings [...] Licensed Dietitian 10/21/22 documented in this encounter [facility] 10-21-2022 Miscellaneous Notes Encounter addended by: Karthik Diallo RD on: 10/21/2022 10:56 AM Actions taken: Clinical Note Signed documented in this encounter [facility] 10-21-2022 Note Encounter addended b y: Karthik Diallo RD on: 10/21/2022 10:56 AM Actions taken: Clinical Note Signed [facility] 10-02-2022 History of Present illness Narrative OUTPATIENT [...] (269 lb) 01/22/21 123.4 kg (272 lb) [place] body weight: 54.7 kg (120 lb 9.5 [...] 09/26/2022 IRON 50 09/26/2022 B12 707 09/26/2022 [id number] 70.5 09/26/2022 FOLATE 10.8 09/26/2022 BP Readings [...] Licensed Dietitian 10/02/22 documented in this encounter [facility] 09-11-2022 History of Present illness Narrative Bariatric [...] Laterality: N/A; Surgeon: Gallito Yates MD; Location: [facility] RELEASE CARPAL TUNNEL Right 2000 TUBAL LIGATION 1996 LAP CHOLECYSTECTOMY Current Outpatient Medications Medication Sig Albuterol Sulfate 108 (90 Base) MCG/ACT Aerosol Powder, breath activated Inhale 2 puffs 4 times daily as needed for Shortness of Breath. atorvastatin 40 MG tablet Take by mouth. Cholecalciferol (vitamin D3) 1.25 MG (40098 UT) capsule TAKE 1 CAPSULE BY MOUTH [...] 2 diabetes mellitus without complication, unspecified whether intermediate project manager insulin use Essential hypertension with Body mass [...] AM Bariatric Surgery documented in this encounter [facility] 07-03-2022 Note Addended by: ASTRID RAO on: 05/13/2023 04:31 PM Modules accepted: Orders [facility] 07-03-2022 History of Present illness Narrative Images [...] , Rfl: cholecalciferol (Vitamin D-3) 1.25 MG (25008 UT) capsule, TAKE 1 CAPSULE BY MOUTH [...] , Rfl: ergocalciferol (Vitamin D-2) 1.25 MG (36183 UT) capsule, Take 50,000 Units by mouth [...] capsule, Take by mouth., Disp: , Rfl: pddhhhttmsgkgse-cdugmdg-nqogWPSixm n (Mytussin DAC) 30-10-100 MG/5ML solution, Take [...] 07/03/22 2:43 PM documented in this encounter [facility] 07-03-2022 History of Present illness Narrative Images [...] , Rfl: cholecalciferol (Vitamin D-3) 1.25 MG (99234 UT) capsule, TAKE 1 CAPSULE BY MOUTH [...] , Rfl: ergocalciferol (Vitamin D-2) 1.25 MG (76330 UT) capsule, Take 50,000 Units by mouth [...] capsule, Take by mouth., Disp: , Rfl: ykhibykutcwzhwj-rvlstxh-twqdHZShxv n (Mytussin DAC) 30-10-100 MG/5ML solution, Take [...] 07/03/22 2:43 PM documented in this encounter [facility] 07-03-2022 Miscellaneous Notes Addended by: ARGENIS SIM on: 12/29/2022 12:19 PM Modules accepted: Orders documented in this encounter [facility] 07-03-2022 Miscellaneous Notes Addended by: ARGENIS SIM on: 12/29/2022 12:19 PM Modules accepted: Orders Addended by: ASTRID RAO on: 05/13/2023 04:31 PM Modules accepted: Orders documented in this encounter [facility] 07-03-2022 Note Addended by: ARGENIS ZAPATA on: 12/29/2022 12:19 PM Modules accepted: Orders [facility] 07-03-2022 Note Addended by: ARGENIS ZAPATA on: 12/29/2022 12:19 PM Modules accepted: Orders [facility] 07-03-2022 Note Addended by: ASTRID RAO on: 05/13/2023 04:31 PM Modules accepted: Orders [facility] 01-18-2022 Note HNO ID: [id number] Author: Niurka Danielson RT(R) Service: Radiology Author [...] PERIPHERAL IV DATA: Not applicable SIGNED BY: RT Ajith(R) January 18, 2022 8:45 AM [facility] 01-18-2022 Miscellaneous Notes Patient calls and notified of results and providers instructions. Patient verbalizes understanding. Adeola Broderick RN Left message for patient to return call. Argenis Brown Negative for COVID please notify Electronically signed by Florinda Márquez APRN.APPLICATION DEVELOPMENT PROJECT MANAGER at 01/18/2022 8:15 AM EDT documented in this encounter [facility] 01-17-2022 Note HNO ID: [id number] Author: Marium Rosales LPN Service: ? Author [...] improved ability to breathe. Marium Rosales LPN [facility] 01-17-2022 Note HNO ID: [id number] Author: Mariely Garcia PA-C Service: ? Author Type: Physician Leather Stitcher Type: Progress Notes Filed: 01/17/2022 7:22 PM Note Text: This note was created using Mail.Ru Groupriter. Subjective Nelia Barker is a 61 year [...] 1. Lower respiratory (more content not included)... [facility] 01-17-2022 History of Present illness Narrative Patient presented [facility], verified by name, date of pulse oxygen at start of visit 96 % taken on three fingers pulse 72. Patient verified by name, Date of Duoneb treatment completed pulse oxygen reading 97%, pulse 92. Patient reported improved ability to breathe. Marium Rosales LPN This note was created using M2M Solution. Subjective eNlia Barker is a 61 year old female. [...] year follow up PAST SURGICAL HISTORY OF 2015 rodriguez's esophagus TUBAL LIGATION HX 1997 FAMILY [...] 3 MG (2.5 MG BASE)/3 ML NEBULIZATION JOE Garcia PA-C documented in this encounter [facility] Diagnosis body mass index of 40.0-49.9- Primary Gastroesophageal reflux disease, unspecified whether esophagitis present Type 2 diabetes mellitus without complication, unspecified whether intermediate project manager insulin use Essential hypertension Unspecified essential hypertension [facility]* Diagnosis Nutritional counseling- Primary Obesity, morbid, BMI 40.0-49.9 [facility]* Diagnosis Nutritional counseling- Primary Obesity, morbid, BMI 40.0-49.9 [facility]* Diagnosis Binge-eating disorder, in full remission, mild- Primary Recurrent major depressive disorder, in full remission [facility]* Diagnosis body mass index of 40.0-49.9- Primary Type 2 diabetes mellitus without complication, with long-term current use of insulin [facility]* Diagnosis S/P Nader-en-Y gastric bypass- Primary [...] Obstructive sleep apnea (adult) (pediatric) History of Nader-en-Y gastric bypass Bariatric surgery status Morbid obesity GERD (gastroesophageal reflux disease) Esophageal reflux Type 2 diabetes mellitus, with long-term current use of insulin Benign hypertension Essential hypertension, benign DEVIN (obstructive sleep apnea) Obstructive sleep apnea (adult) (pediatric) Asthma Unspecified asthma Morbid (severe) obesity due to excess calories documented in this encounter [facility] [facility] Diagnosis S/P Nader-en-Y gastric bypass- Primary Bariatric surgery status [facility] Diagnosis Left renal mass- Primary Unspecified disorder of kidney and ureter Adrenal nodule (HCC) Benign neoplasm of adrenal gland documented in this encounter [facility] note* Diagnosis Left renal mass Unspecified disorder of kidney and ureter [facility] Diagnosis History of Nader-en-Y gastric bypass- Primary Bariatric surgery status Obesity, morbid, BMI 40.0-49.9 Type 2 diabetes mellitus without complication, with long-term current use of insulin Intestinal malabsorption, unspecified type [facility] Diagnosis Nutritional counseling- Primary Obesity, morbid, BMI 40.0-49.9 [facility] Diagnosis Obesity, morbid, BMI 40.0-49.9- Primary [facility] Diagnosis Left renal mass- Primary Unspecified disorder of kidney and ureter Adrenal nodule (HCC) Benign neoplasm of adrenal gland Left renal mass Unspecified disorder of kidney and ureter [facility] Diagnosis Left renal mass Unspecified disorder of kidney and ureter [facility] Diagnosis Left renal mass- Primary Unspecified disorder of kidney and ureter documented in this encounter [facility] for referral (narrative)* (Routine) Specialty Diagnoses / Procedures Referred By [facility] Referred To Contact MAI ELLISON REV LOC [address] [place] [address] Referral ID Status Reason Start Date Expiration Date Visits Re quested Visits Authorized [facility] Summary Purpose Family History No Family History [...] Referral Specialty Diagnoses / Procedures Referred By [facility] Referred To Contact Nutrition and Dietetics Diagnoses Obesity, morbid, BMI 40.0-49.9 Gastroesophageal reflux disease, unspecified whether esophagitis present Type 2 diabetes mellitus without complication, unspecified whether intermediate project manager insulin use Essential hypertension Thor Cruz, [address] [place] [address] Referral ID Status Reason Start Date Expiration Date V isits Requested Visits Authorized [id number] New Request 09/11/2022 10/06/2023 1 1 Specialty Diagnoses / Procedures Referred By Contac t Referred To Contact Psychology Diagnoses Obesity, morbid, BMI 40.0-49.9 Gastroesophageal reflux disease, unspecified whether esophagitis present Type 2 diabetes mellitus without complication, unspecified whether intermediate project manager insulin use Essential hypertension Thor Cruz DO [address] [place] [address] Edgardo Osman, [place] [phone] Referral ID Status Reason Start Date Expiration Date V isits Requested Visits Authorized [id number] New Request 09/11/2022 10/06/2023 1 1 Specialty Diagnoses / Procedures Referred By Contac t Referred To Contact Radiology Diagnoses Left renal mass Procedures MR abdomen w and wo contrast Hussein Napier MD [address] [place] [id number] Referral ID Status Reason Start Date Expiration Date V isits Requested Visits Authorized [id number] Authorized 07/03/2022 12/30/2022 1 1 Referral ID Status Reason Start Date Expiration Date Visits Re quested Visits Authorized [id number] Closed 07/03/2022 12/30/2022 1 1 Referral ID Status Reason Start Date Expiration Date V isits Requested Visits Authorized [id number] Pending Review 01/22/2023 07/21/2023 1 1 Specialty Diagnoses / Procedures Referred By Contac t Referred To Contact Radiology Diagnoses Left renal mass Procedures MR abdomen w and wo contrast Hussein Napier MD [address] [place] [address] Referral ID Status Reason Start Date Expiration Date Visits Re quested Visits Authorized [id number] Closed 01/22/2023 07/21/2023 1 1 Referral ID Status Reason Start Date Expiration Date V isits Requested Visits Authorized [id number] Pending Review 05/28/2023 05/27/2024 1 1 Additional Source Comments INFORMATION SOURCE (unrecogn ized section and content) DATE CREATED AUTHOR AUTHOR'S ORGANIZ ATION 02/01/2022 [facility] DATE CREATED AUTHOR AUTHOR'S ORGANIZ ATION 12/11/2022 [facility] DATE CREATED AUTHOR AUTHOR'S ORGANIZ ATION 03/23/2023 [facility] DATE CREATED AUTHOR AUTHOR'S ORGANIZ ATION 05/20/2023 [facility] Source Comments (unrecognize d section and content) In the event this informatio n is protected by the Federal Confidentiality of Alcohol and Drug Abuse Patient Records regulations: The Federal rules restrict any use of the information to criminally investigate or prosecute any alcohol or drug abuse patient.[facility] the event this information is protected by the Federal Confidentiality of Alcohol and Drug Abuse Patient Records regulations: The Federal rules restrict any use of the information to criminally investigate or prosecute any alcohol or drug abuse patient.[facility] Reason for Visit (unrecogniz ed section and content) Specialty Diagnoses / Procedures Referred By Contac t Referred To Contact Registered Dietitian / Nutrition and Dietetics Diagnoses Final Procedures FOLLOW-UP - GABBY Self, Karthik Williamson, RD [address] [place] [address] Referral ID Status Reason Start Date Expiration Date V isits Requested Visits Authorized [id number] Pending Review 10/21/2022 11/15/2023 1 1 Reason Comments Cough Pt reported chest co ngestion, x2 wks, SOB, wheezing. 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 insulin use Essential hypertension Thor Cruz, DO [address] [place] [address] Referral ID Status Reason Start Date Expiration Date V isits Requested Visits Authorized [id number] New Request 09/11/2022 10/06/2023 1 1 Reason Comments Follow-up Eating Disorder Reason Comments Pre-op Exam Pre op nader GC Specialty Diagnoses / Procedures Referred By [facility] Referred To Contact Diagnoses Obesity, morbid, BMI 40.0-49.9 Type 2 diabetes mellitus without complication, with long-term current use of insulin Obesity, morbid, BMI 40.0-49.9 [E66.01] Type 2 diabetes mellitus without complication, with long-term current use of insulin [E11.9, Z79.4] Procedures W[place] LAP GASTRIC BYPASS/NADER-EN-Y BYPASS GASTRIC W/ NADER-EN-Y GASTROENTEROSTOMY LAPAROSCOPIC ROBOTIC Thor Cruz, DO [address] [place] [address] [facility] Referral ID Status Reason Start Date Expiration Date Visits Re quested Visits Authorized [id number] 1 1 Reason Comments Post Op Visit 2 wk post op RNY Reason Comments Other Adrenal nodule Specialty Diagnoses / Procedures Referred By [facility] Referred To Contact Radiology Diagnoses Left renal mass Procedures MR abdomen w and wo contrast Hussein Napier MD [address] [place] [address] Referral ID Status Reason Start Date Expiration Date Visits Re quested Visits Authorized [id number] Closed 07/03/2022 12/30/2022 1 1 Reason Comments Post Op Visit 1 month follow up s/ p nader-en-y gastric bypass performed by Dr. Thor Cruz DO Reason Comments Follow-up Renal mass Specialty Diagnoses / Procedures Referred By [facility] Referred To Contact Registered Dietitian / Nutrition and Dietetics Diagnoses 2 month post op Procedures FOLLOW-UP - GABBY Whitfield, Karthik Williamson, RD [address] [place] [address] Referral ID Status Reason Start Date Expiration Date V isits Requested Visits Authorized [id number] Pending Review 02/10/2023 03/06/2024 1 1 Reason Comments Post Op Visit 3 months post op Rou x-en-Y gastric bypass Specialty Diagnoses / Procedures Referred By [facility] Referred To Contact Radiology Diagnoses Left renal mass Procedures MR abdomen w and wo contrast Hussein Napier MD [address] [place] [address] Referral ID Status Reason Start Date Expiration Date Visits Re quested Visits Authorized [id number] Closed 01/22/2023 07/21/2023 1 1 Reason Comments renal mass Follow up Care Teams (unrecognized sec tion and content) [employer] Chief Scientist Relationship Specialty Start Date End Date Kate Spencer DO PCP - General Family Practice 04/16/15 [employer] Chief Scientist Relationship Specialty Start Date End Date Kate Spencer DO [address] [place] [address] PCP - General Family Medicine 01/22/21 [employer] Chief Scientist Relationship Specialty Start Date End Date Kate Spencer DO [address] [place] [address] PCP - General Family Medicine 01/22/21 [employer] Chief Scientist Relationship Specialty Start Date End Date Kate Spencer DO [address] [place] [address] PCP - General Family Medicine 01/22/21 [employer] Chief Scientist Relationship Specialty Start Date End Date Kate Spencer DO [address] [place] [phone] PCP - General Family Medicine 01/22/21 [employer] Chief Scientist Relationship Specialty Start Date End Date Kate Spencer DO [address] [place] [address] PCP - General Family Medicine 01/22/21 [employer] Chief Scientist Relationship Specialty Start Date End Date Kate Spencer DO [address] [place] [address] PCP - General Family Medicine 01/22/21 [employer] Chief Scientist Relationship Specialty Start Date End Date Kate Spencer DO [address] [place] [address] PCP - General Family Medicine 01/22/21 [employer] Chief Scientist Relationship Specialty Start Date End Date [facility] [address] [place] [address] PCP - General 03/18/22 Hussein Napier MD [address] [place] [address] Surgeon Urology 03/06/22 [employer] Chief Scientist Relationship Specialty Start Date End Date [facility] [address] [place] [address] PCP - General 03/18/22 Hussein Napier MD [address] [place] [address] Surgeon Urology 03/06/22 [employer] Chief Scientist Relationship Specialty Start Date End Date Inc [facility] [address] [place] [address] PCP - General 03/18/22 Hussein Napier MD [address] [place] [address] Surgeon Urology 03/06/22 [employer] Chief Scientist Relationship Specialty Start Date End Date Kate Spencer DO [address] [place] [phone] PCP - General Family Medicine 01/22/21 [employer] Chief Scientist Relationship Specialty Start Date End Date [facility] [address] [place] [address] PCP - General 03/18/22 Hussein Napier MD [address] [place] [address] Surgeon Urology 03/06/22 [employer] Chief Scientist Relationship Specialty Start Date End Date [facility] [address] [place] [address] PCP - General 03/18/22 Hussein Napier MD [address] [place] [address] Surgeon Urology 03/06/22 [employer] Chief Scientist Relationship Specialty Start Date End Date Kate Spencer DO [address] [place] [phone] PCP - General Family Medicine 01/22/21 [employer] Chief Scientist Relationship Specialty Start Date End Date [facility] [address] [place] [address] PCP - General 03/18/22 Hussein Napier MD [address] [place] [address] Surgeon Urology 03/06/22 [employer] Chief Scientist Relationship Specialty Start Date End Date [facility] [address] [place] [address] PCP - General 03/18/22 Hussein Napier MD [address] [place] [address] Surgeon Urology 03/06/22 [employer] Chief Scientist Relationship Specialty Start Date End Date [facility] [address] [place] [address] PCP - General 03/18/22 Hussein Napier MD [address] [place] [address] Surgeon Urology 03/06/22 Scheduled Active and Recently Administ ered Medications [...] Pre-op/Pre-Proc 0740 ($$New Bag$$ - Provider: Ksenia Cruz, SAMARA)0755 ($$New Bag$$ - Provider: Ksenia Cruz, RN) PRN Medication Order 12/07/2022 12/08/2022 12/09/2022 [...] Cruz, DO - Comment: used with power clinical trials assistant as needed) Linked Groups Order Group 1: [...] to the hypoglycemia management protocol on Ellucid: [facility] Protocol.
And Dextrose 10% IV solution [...] at 1523, Until Specified
Who to Notify: [employer]DEL [employer]APH[employer]'/Physician
For all Blood Glucose LESS THAN 70 mg/dl, or greater than 400 mg/dl notify [employer]'/Physician Group 2: oxyCODONE (ROXICODONE) oral solution 5 [...] BE BASED ON THE PRIMARY CLINICAL RECORDS. [employer] provides no warranty or guarantee of the accuracy or completeness of information in this document.
== END | disposition home or self-care (01) ==
LOC: CT 08:38
PROVIDERS: PCP Family Medicine; Referring Provider Orthopaedic Surgery Orthopaedic Surgery of the Spine; Visit Provider Orthopaedic Surgery Orthopaedic Surgery of the Spine
DX: M48.46XA Fatigue fracture of vertebra, lumbar region, initial encounter for fracture (principal)
CPT/HCPCS: 72131

== ENCOUNTER 2023-06-03 13:30 | Outpatient (RCR) | payer MEDICARE, OTHER, SELFPAY ==
--- NOTE | 2023-05-27 12:02 | HP.PTEVAL ---
Patient's Visit Information Visit Information Visit Information: LANA GODOY is a 63 year old F referred to Physical Therapy by Dr. Mitchell Guillermo MD with a diagnosis of LUMBAR STRESS FRACTURE. Date of Evaluation: 05/27/23 Physical Therapist: Osiris Gilbert PT, Cert MDT Visit Plan Frequency: 2-3x /Week Duration: 4-6 Weeks Plan: Neutral Spine Core Stability Exercises and Holden LE Hip Flexor, Hamstring and Calf Stretching to help reduce stress to the Lumbar Spine with all Daily Activities. Holden LE Strengthening. Instruction in Proper Posture Control, Body Mechanics, and Appropriate Activity Modifications. HEP Instruction. 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 Present symptoms: HOLDEN LOW BACK PAIN. HOLDEN LE PAIN, NUMBNESS AND TINGLING. PATIENT REPORTS HER LOW BACK PAIN IS CHRONIC BUT HER LEG SX'S JUST STARTED ABOUT 6 WEEKS AGO. SHE STATES HER R THIGH PAIN IS THE WORST BUT HER L SCIATIC NERVE IS KILLING HER. Present since: APPROXLY JAN 2023 Pain Scale: WORST 8/10, LEAST 7/10 Currently: 7/10 Is it getting better, worse or staying the same: STAYING THE SAME Commenced as a result of: FALL - PATIENT REPORTS SHE FELL ON HER PORCH IN JAN AND THE PAIN STARTED ABOUT 2 MONTH LATER IN MARCH. SHE REPORTS ABOUT 1 WEEK AFTER THE FALL SHE GOT A BIG BRUISE ON HER RIGHT HIP WHERE SHE IS HAVING A LOT OF PAIN NOW (SOMETIMES SHARP PAINS THAT WAKE HER UP AT NIGHT) BUT THE PAIN WASN'T THERE AT FIRST. *PATIENT REPORTS SHE HAD 2 FALLS ON THE SAME PORCH PRIOR WITH ALL 3 FALLS BEING IN THE SAME YEAR - RESULTING IN BUMPS AND BRUISES. Symptoms at onset: BIG L FOREARM BRUISE, THEN BIG BRUISE JUST BELOW R HIP ON OUTSIDE OF THIGH, THEN A COUPLE MONTHS PAIN WHERE THE R THIGH BRUISE WAS, THEN L SCIATICA THEN R SHLD PAIN (I HAVEN'T EVEN DISCUSSED THE R SHLD PAIN WITH THE DOCTOR YET BECAUSE I HAVE TOO MANY OTHER THINGS GOING ON BUT IT WAKES ME UP TOO). Worse: RISING FROM SITTING, GETTING IN AND OUT OF BED, JUST BENDING OVER, WALKING ANY DISTANCE, IN AND OUT OF THE CAR, TRYING TO RAISE L FOOT TO GET SHOE AND SOCK ON. STANDING TO WASH THE DISHES. STEPS. Better: ICE, LYING DOWN FLAT ON BACK. Disturbed sleep: YES Previous history/Previous treatment: H/0 L SCIATICA ABOUT 20 YEARS AGO BUT OTHERWISE LEGS HAVE BEEN OK. H/O OF LBP FROM LIFTING. HAVE TREATED LBP WITH IBUPROFEN IN THE PAST AND BIOFREEZE CURRENTLY CAN'T TAKE IBUPROFEN DUE TO BARIATRIC SX DEC 2022. NO CHIROPRACTIC. NO BACK SURGERY. H/O PAIN MGMT AND LUMBAR CHINTAN'S WITH DR. CREWS SINCE THIS YEAR STARTING APPROX SEPTEMBER 2022 WITH THE LAST CHINTAN IN MAR 2023. HAS ALSO BEEN PRESCRIBED VICODIN BUT HAS ONLY TAKEN ONE. Coughing/sneezing/straining: PATIENT RESPONDS I DON'T THINK SO WHEN ASKED IF CAUSES INCREASED PAIN. Gait: INDEP. TIME AND DISTANCE LIMITED DUE TO PAIN BUT NOT USING ANY AD'S. NO MORE FALLS SINCE JAN 2023. Bowel or Bladder Dysfunction: SINCE THE FALL - I CAN TELL I HAVE TO GO TO THE BATHROOM BUT WHEN I SIT DOWN I CAN'T FEEL IT COMING OUT. IT'S LIKE I'M NUMB OR SOMETHING. I DON'T KNOW WHEN I'M DONE AND I WHEN I GO TO WIPE I END UP GOING ON MY HAND. UPON FURTHER QUESTIONING PATIENT REPORTS SHE HAS NOT TOLD HER DOCTORS ABOUT THIS AND THIS PT INSTRUCTED PATIENT TO NOTIFY DR. GUILLERMO RIGHT AWAY. Accidents: NO Unexplained weight loss: BARIATRIC SURGERY DEC 2022 - HAS LOST 75 LBS. PATIENT DENIES ANY COMPLICATIONS. Imaging: LUMBAR MRI 05/11/2023: MRI/Spine Lumbar (Routine) IMPRESSION: Findings which may be consistent with nondisplaced fracture of the right pedicle and transverse process of L5. This may be further evaluated with CAT scan or bone scan if clinically warranted. Spinal stenosis at L4-5 slightly more pronounced on the left secondary to annular bulge and facet arthropathy. Minor bilateral neural foraminal encroachment at L5-S1 secondary to annular bulge and facet arthropathy PMH/Recent major surgery: DIABETIC - STATES SHE HAS NOT BEEN NEEDING TO TAKE INSULIN. R SHLD PAIN AND PARTIAL RCT UNREPAIRED. HTN. H/O KIDNEY TUMOR - WAS FROZEN OFF - BEING MONITORED. Craig's Esophagus. Objective Objective: Sitting/Standing Posture: POOR. FH. RSH'S. INCRASED KYPHOSIS. R ILIAC CREST HIGHER THAN L. VERY SLOUCHED IN SITTING AND STANDING. Active Correction of posture: NE. ABLE TO PARTIALLY CORRECT BUT DOES NOT MAINTAIN. Other Observations: INDEP GAIT INTO PT WITHOUT ANY AD'S OR LOB. DECREASED CADANCE AND INCREASED TRUNK FLEXION. MILD LIMP ON R LE. Sensory deficit: HOLDEN LE LIGHT TOUCH SENSATION GROSSLY INTACT AND SYMMETRICAL ROM deficit: HOLDEN LE HIP FLEXOR, HS AND CALF TIGHTNESS. R HIP IR/ER TIGHTNESS COMPARED TO L AND C/O ERP WITH TESTING. Motor deficit: R HIP 4-/5, KNEE 5/5, ANKLE 5/5. L HIP 4/5, KNEE 5/5, ANKLE 5/5. Reflexes: UNABLE TO ELICIT HOLDEN LE DTR'S Dural Signs: NEGATIVE HOLDEN LE'S. Lumbar mvmt loss: NT Core strength: POOR Palpation: PATIENT DENIES THORACIC, LUMBAR, SACRAL, SI AND L LE TENDERNESS WITH LIGHT PALPATION. C/O R ISHIAL TUB AND GREATER TROCH REGION TENDERNESS WITH LIGHT PALPATION. TREATMENT: NEUROMUSCULAR REEDUCATION - RETRAINING OF MVMT AND POSTURE FOR SITTING, LYING AND STANDING ACTIVITIES. PATIENT REPORTED IMMEDIATE DECREASE IN PAIN TO 6/10 IN SITTING WITH LUMBAR SUPPORT. INSTRUCTED PATIENT IN USE OF CANE NEEDED IN L UE TO EASE PAIN DURING GAIT. INTRO TO PROPER POSTURE CONTROL AND BODY MECHANICS INCLUDING CAR, CHAIR AND BED TRANSFER TRAINING. Balance/Special Test Scores Oswestry Low Back Score: 17 Goals Goal 1:: DECREASE C/O BACK PAIN BY AT LEAST 25% TO EASE ADL'S Goal Time Frame: 4-6 Weeks Goal 2:: IMPROVE BACK OSWESTRY SCORE BY AT LEAST 5 POINTS TO SHOW IMPROVED FUNCTION Goal Time Frame: 4-6 Weeks Goal 3:: INDEP HEP Goal Time Frame: 4-6 Weeks Rehabilitation Potential Physical Therapy Diagnosis: THIS PATIENT PRESENTS TO PT WITH C/O LOW BACK AND HOLDEN LE PAIN R > L. SHE HAS HYPOMOBILITY, CORE WEAKNESS, HOLDEN LE TIGHTNESS, AND R LE TENDERNESS. Rehabilitation Potential: Good Anticipated Interventions Patient/Client Instruction: Educate patient on: Condition, Plan of Care and Risk Factors For the Purpose of:: To improve self management Therapeutic Exercise to Include: Strength training, Body mechanics, Postural training, Flexibilty training, Neuromotor development and Dynamic Lumbar Stabilization For the Purpose of:: To decrease pain, To improve muscle performance and motor function, To increase tolerance to activity/condition/position, To improve ability of physical actions for home/community/work/leisure, To improve gait and locomotor functions and To increase flexibility/ROM Cryotherapy (ice pack, ice massage): Yes Thermo therapy (hot pack): Yes For the Purpose of:: To decrease pain, To decrease swelling/inflammation and To improve nutrient delivery to tissue Text: Thank you for the opportunity to evaluate your patient. For Medicare and Medicare HMO plans, please review the plan of care and approve it. It will need to be FAXED BACK to us at [phone] for Medicare purposes. For Medicare only, by signing this I certify the plan of care. Please let me know if there are questions or concerns regarding this plan of care. Physician Signature: Date:
--- NOTE | 2023-07-06 15:25 | HP.PTREVAL ---
Re-Evaluation Intro: Dr. Mitcehll Guillermo MD, It has been my pleasure to treat LANA GODOY over the last 4 visits for LUMBAR STRESS FRACTURE. Please see the progress note below for an update on the physical therapy plan of care! Subjective Subjective: PATIENT REPORTS SHE GOT BACK FROM [facility]. TUE 06/30/[address] CREWS 07/02/23. SHE STATES THE SHOT SHE REC'D FROM DR. CREWS APPROX 06/05/23 HELPED HER LBP AND LLE SX'S BUT ONLY PARTIALLY HELPED THE R HIP PAIN. WHEN SHE SAW DR. CREWS FOR FOLLOW UP 07/02/23 HE ORDERED AN X-RAY OF HER R HIP BUT SHE HASN'T RECEIVED THE RESULTS YET. SHE PLANS TO SEE HIM AGAIN 07/30/23. SHE STATES DR. CREWS TOLD HER TO TAKE TYLONOL ARTHRITIS. PATIENT REPORTS SHE COULDN'T DO HER HEP WHILE IN [facility] DUE TO NEEDING TO GO TO URGENT CARE FOR INFECTION LEADING TO STIFF NECK AND NEED FOR MEDICATIONS. SHE STATES SHE IS BETTER NOW AND SHE FEELS LIKE SHE CAN RESUME HER HEP AND DOESN'T NEED MUCH MORE THERAPY. SHE ALSO REPORTS SHE IS STARTING TO BE ABLE TO WALK NOW AND SHE FEELS THAT IS HELPING. STATES SHE WAS ABLE TO WALK 2.5 BLOCKS TODAY (ABOUT 15 MINUTES) WITHOUT PAIN. I JUST NEED TO KEEP ACTIVE. SHE STATES SHE FEELS WEAK WHEN SHE FIRST GETS UP BUT ONCE SHE GETS MOVING SHE COMES OUT OF IT AND FEELS GOOD. Objective Objective/Function: PATIENT WAS SEEN TODAY FOR RE-ASSESSMENT OF PROGRESS TOWARD THE SET PT GOALS AND THE NEED FOR FURTHER PHYSICAL THERAPY VS READINESS FOR DISCHARGE. PATIENT IS REPORTING DECREASED LOW BACK AND HOLDEN LE SX'S BUT CHEIF C/O R HIP PAIN STILL. AT THIS POINT SHE HAS ONLY STARTED A FEW EX'S AND STILL HAS SIGNIFICANT WEAKNESS. SHE IS A GOOD CANDIDATE TO CONTINUE PT AND SHE IS AGREEABLE BUT WOULD LIKE TO MINIMIZE PT RIO'TS AND FOCUS ON HEP. UPON EXAM TODAY: Sitting/Standing Posture: POOR. FH. RSH'S. INCRASED KYPHOSIS. R ILIAC CREST HIGHER THAN L. VERY SLOUCHED IN SITTING AND STANDING. Active Correction of posture: NE. ABLE TO PARTIALLY CORRECT BUT DOES NOT MAINTAIN. Other Observations: INDEP GAIT INTO PT WITHOUT ANY AD'S OR LOB. DECREASED CADANCE AND INCREASED TRUNK FLEXION. MILD LIMP ON R LE. Sensory deficit: HOLDEN LE LIGHT TOUCH SENSATION GROSSLY INTACT AND SYMMETRICAL ROM deficit: HOLDEN LE HIP FLEXOR, HS AND CALF TIGHTNESS. R HIP IR/ER TIGHTNESS COMPARED TO L AND C/O ERP WITH TESTING. Motor deficit: R HIP 4-/5, KNEE 5/5, ANKLE 5/5. L HIP 4/5, KNEE 5/5, ANKLE 5/5. Dural Signs: NEGATIVE HOLDEN LE'S. Lumbar mvmt loss: FLEX - MIN EXT - MOD R SG - MOD L SG - MIN PATIENT C/O MILD MID BACK PAIN WITH L SG TESTING THAT DOES NOT REMAIN WORSE A RESULT. Core strength: POOR Plan Plan Plan: RE-CHECK UPON PATIENT RETURN TO [facility]. Neutral Spine Core Stability Exercises and Holden LE Hip Flexor, Hamstring and Calf Stretching to help reduce stress to the Lumbar Spine with all Daily Activities. Holden LE Strengthening. Instruction in Proper Posture Control, Body Mechanics, and Appropriate Activity Modifications. HEP Instruction. Balance/Gait/Functional tests Balance/Special Test Scores Oswestry Low Back Score: 18 Goals Goals Goal 1:: DECREASE C/O BACK PAIN BY AT LEAST 25% TO EASE ADL'S Goal Time Frame: 4-6 Weeks Goal 2:: IMPROVE BACK OSWESTRY SCORE BY AT LEAST 5 POINTS TO SHOW IMPROVED FUNCTION Goal Time Frame: 4-6 Weeks Goal 3:: INDEP HEP Goal Time Frame: 4-6 Weeks Anticipated Interventions Anticipated Interventions Patient/Client Instruction: Educate patient on: Condition, Plan of Care and Risk Factors For the Purpose of:: To improve self management Therapeutic Exercise to Include: Strength training, Body mechanics, Postural training, Flexibilty training, Neuromotor development and Dynamic Lumbar Stabilization For the Purpose of:: To decrease pain, To improve muscle performance and motor function, To increase tolerance to activity/condition/position, To improve ability of physical actions for home/community/work/leisure, To improve gait and locomotor functions and To increase flexibility/ROM Cryotherapy (ice pack, ice massage): Yes Thermo therapy (hot pack): Yes For the Purpose of:: To decrease pain, To decrease swelling/inflammation and To improve nutrient delivery to tissue Re-Evaluation Ending Re-evaluation ending: Please do not hesitate to contact me at [phone] by phone or if you have questions or concerns regarding this new plan of care! Sincerely, Osiris Gilbert, PT, Cert MDT
--- NOTE | 2023-07-10 13:16 | HP.PT.NRP ---
Patient Information Patient Information: LANA GODOY was seen in my office for initial evaluation on 05/27/23. The following Plan of Care was established for this patient: POC Established Initial Frequency: 2-3x /Week Initial Duration: 4-6 Weeks Anticipated Interventions Patient/Client Instruction: Educate patient on: Condition, Plan of Care and Risk Factors For the Purpose of:: To improve self management Therapeutic Exercise to Include: Strength training, Body mechanics, Postural training, Flexibilty training, Neuromotor development and Dynamic Lumbar Stabilization For the Purpose of:: To decrease pain, To improve muscle performance and motor function, To increase tolerance to activity/condition/position, To improve ability of physical actions for home/community/work/leisure, To improve gait and locomotor functions and To increase flexibility/ROM Cryotherapy (ice pack, ice massage): Yes Thermo therapy (hot pack): Yes For the Purpose of:: To decrease pain, To decrease swelling/inflammation and To improve nutrient delivery to tissue Last Seen Last Seen: This patient was last seen in our office 07/06/23. Pertinent comments regarding their Physical therapy will appear below: PATIENT HAD A CHANGE OF INSURANCE AND CANCELLED ALL RIO'TS STATING SHE CAN NOT AFFORD THE CO-PAY. At this point I will be discontinuing this patient from physical therapy. I would be happy to see this patient again in the future if found appropriate by the physician. Thank you! Osiris Gilbert, PT, Cert MDT Balance/Gait/Functional tests Balance/Special Test Scores Oswestry Low Back Score: 18
== END 2023-06-03 19:00 | disposition home or self-care (01) ==
LOC: PT 13:30
PROVIDERS: PCP Family Medicine; Referring Provider Orthopaedic Surgery Orthopaedic Surgery of the Spine; Visit Provider Orthopaedic Surgery Orthopaedic Surgery of the Spine
DX: M48.46XD Fatigue fracture of vertebra, lumbar region, subsequent encounter for fracture with routine healing (principal)
CPT/HCPCS: 97112; 97162; 97164; 97530

== ENCOUNTER → 2023-07-02 | Outpatient (CLI) | payer MEDICARE, SELFPAY ==
--- NOTE | 2023-07-02 11:28 | RAD_ITS ---
EXAM: XR RIGHT HIP WITH PELVIS WHEN PERFORMED, 2 OR 3 VIEWS CLINICAL INDICATION: R HIP PAIN TECHNIQUE: Two or three views of the right hip with pelvis when performed. COMPARISON: Lumbar spine, 05/20/[address] lumbar spine, 05/30/2023 CT abdomen and pelvis, 06/05/2021 FINDINGS: BONES/JOINTS: Degenerative changes in the lower lumbar spine and symmetrically at the bilateral SI joints. Iliac and trochanteric enthesophytes. Acetabular hypertrophy and sclerosis bilaterally with minimal hip joint space narrowing bilaterally. No displaced fracture. No widening of the pubic symphysis. SOFT TISSUES: No significant abnormality. No soft tissue swelling or gas. RAD/HIP, UNI W/ Pelvis 2-3 Views IMPRESSION: Degenerative changes. No acute osseous findings. Electronically Signed: Rasta Morales DO at 23:54 EST ,
== END | disposition home or self-care (01) ==
LOC: RAD 11:24
PROVIDERS: PCP Family Medicine; Referring Provider Anesthesiology Pain Medicine; Visit Provider Anesthesiology Pain Medicine
DX: M25.551 Pain in right hip (principal)
CPT/HCPCS: 73502

== ENCOUNTER → 2023-07-10 | Outpatient (CLI) | payer MEDICARE, SELFPAY ==
--- OUTSIDE RECORDS SUMMARY | 2023-07-10 09:55 | XMS RPT_ITS | CCD ---
Author Name Unknown Address [address] [place] [address] Organization [facility] Care Team Providers Care Mult Au Matic Operator Name Role Phone Adrienne KarthikMiles Unavailable Unavailable Malys, Kate A Unavailable Unavailable Malys DO, Kate A Primary Care Provider [phone] Malys DO, Kate A Primary Care Provider [...] CRUZ Referring Unavailable Hussein Napier MD Unavailable Inc, [facility] Primary Care Provider Unav ailable Hussein Napier MD Unavailable NAPIER, HUSSEIN Referring Unavailable NAPIER, HUSSEIN Attending Unavailable [facility], [facility] Unavailable NAPIER, HUSSEIN Referring Unavailable NAPIER, HUSSEIN Attending Unavailable [facility], [facility] Primary Care Unavailable NAPIER, HUSSEIN Referring Unavailable NAPIER, HUSSEIN Attending Unavailable [facility], [facility] Primary Care Unavailable NAPIER, HUSSEIN Attending Unavailable [facility], [facility] Primary Care Unavailable NAPIER, HUSSEIN Attending Unavailable [facility], [facility] Primary Care Unavailable [facility] Primary Care Unavailable NAPIER, HUSSEIN Attending Unavailable [facility], [facility] Primary Care Unavailable NAPIER, HUSSEIN Attending Unavailable CHOLOYS, KATE Primary Care Unavailable THOR CRUZ Referring Unavailable ARON TAPIA Attending Unavailable MALYS, KATE Primary Care Unavailable CRUZ, THOR Referring Unavailable CRUZ, THOR Attending Unavailable SELF, SELF Referring Unavailable MALYS, KATE Primary Care Unavailable CRUZ, THOR Attending Unavailable SELF, SELF Referring Unavailable MALYS, KATE Primary Care Unavailable CRUZ, THOR Attending Unavailable SELF, SELF Referring Unavailable MALYS, KATE Primary Care Unavailable MCGINNIS, ROJELIO Attending Unavailable MALYS, KATE Primary Care Unavailable BOROFF, KARTHIK Attending Unavailable SELF, SELF Referring Unavailable MALYS, KATE Primary Care Unavailable MCGINNIS, ROJELIO Attending Unavailable SELF, SELF Referring Unavailable MALYS, KATE Primary Care Unavailable MCGINNIS, ROJELIO Attending Unavailable SELF, SELF Referring Unavailable MALYS, KATE Primary Care Unavailable MCGINNIS, ROJELIO Attending Unavailable MCGINNIS, ROJELIO Referring Unavailable SELF, SELF Referring Unavailable MALYS, KATE Primary Care Unavailable BOROFF, KARTHIK Attending Unavailable SELF, SELF Referring Unavailable MALYS, KATE Primary Care Unavailable BOROFF, KARTHIK Attending Unavailable SELF, SELF Referring Unavailable MALYS, KATE Primary Care Unavailable EDGARDO OSMAN Attending Unavailable SELF, SELF Referring Unavailable MALYS, KATE Primary Care Unavailable CRUZ, THOR Attending Unavailable MALYS, KATE Primary Care Unavailable EDGARDO OSMAN Attending Unavailable CRUZ, THOR Referring Unavailable SELF, SELF Referring Unavailable MALYS, KATE Primary Care Unavailable MCGINNIS, ROJELIO Attending Unavailable Allergies Allergy Classification Reported Allergen(s) Allergy Type Date of Onset Reaction(s) Facility (3 sources) Penicillin; Translations: [PENICILLIN] Drug Allergy 05-10-2015 [facility] (20 sources) Penicillins Propensity to adverse reactions to drug 05-10-2015 [facility] Medications Current Medications Medication Drug Class(es) [...] Translations: [Dietary counseling and surveillance] Episodic Asthma (10 sources) Uncomplicated asthma; Translations: [Unspecified asthma, uncomplicated] [...] full remission] Onset: 10-27-2022 10-27-2022 Chronic Other diseases of kidney and ureters (18 [...] (HCC)] Onset: 01-22-2023 Chronic Other gastrointestinal disorders (2 sources) Intestinal malabsorption; Translations: [Intestinal malabsorption, unspecified] 01-07-2023 Chronic Other gastrointestinal disorders (2 sources) Intestinal malabsorption, unspecified; Translations: [Intestinal malabsorption, unspecified] Onset: 01-07-2023 Chronic Other gastrointestinal disorders (7 sources) H/O: GIT by-pass; Translations: [Bariatric surgery status] Onset: 12-08-2022 12-09-2022 Episodic Other hereditary and degenerative nervous system [...] Chronic Other nutritional; endocrine; and metabolic disorders (19 sources) Body mass index 40+ - severely obese; Translations: [Morbid (severe) obesity due to excess calories] Onset: 01-22-2021 Chronic Other nutritional; endocrine; and metabolic disorders (14 sources) Morbid obesity; Translations: [Morbid (severe) obesity due to excess calories] Onset: 11-13-2022 12-09-2022 Chronic Other nutritional; endocrine; and metabolic disorders (2 sources) Morbid (severe) obesity due to excess calories; Translations: [Morbid (severe) obesity due to excess calories] Onset: 01-22-2021 Chronic Other nutritional; endocrine; and metabolic disorders (3 sources) Obesity caused by energy imbalance; Translations: [Morbid (severe) obesity due to excess calories] Onset: 12-09-2022 12-09-2022 Chronic Other nutritional; endocrine; and metabolic disorders (1 source) Body mass index 30+ - obesity; Translations: [Obesity, unspecified] 06-02-2023 Chronic Other screening for suspected conditions (not mental disorders or infectious disease) (1 source) Other specified abnormal findings of blood chemistry; Translations: [Other nonspecific findings on examination of blood] 06-02-2023 Episodic Residual codes; unclassified (20 sources) Obstructive sleep apnea syndrome; Translations: [Obstructive [...] Classification Problem Date Documented Da te Episodic/Chronic Other aftercare (4 sources) prison (current) use of 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; 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] Onset: 12-08-2022 Episodic Other gastrointestinal disorders (4 sources) Bariatric surgery status; Translations: [Bariatric surgery status] Onset: 12-08-2022 Episodic Unclassified (1 source) K22.70 Onset: 11-06-2017 Unclassified (1 source) Onset: 06-02-2023 06-02-2023 Results Test Name Value Interpretation Reference Range Facil ity Vital Signs Date Time Vital Sign Value Performing Clinician Facility 06-02-2023 13:10-0500 Body height 165.1 cm Rojelio Mcginnis CNP Work Phone: [facility] 06-02-2023 13:10-0500 Body mass index (BMI) [Ratio] 34.21 kg/m2 Rojelio Mcginnis CNP Work Phone: [facility] 06-02-2023 13:10-0500 Body weight 93.26 kg Rojelio Mcginnis NON LICENSED NUCLEAR PLANT OPERATOR Work Phone: [facility] 06-02-2023 13:10-0500 Diastolic blood pressure 78 mm[Hg] Rojelio Mcginnis NON LICENSED NUCLEAR PLANT OPERATOR Work Phone: [facility] 06-02-2023 13:10-0500 Heart rate 78 /min Rojelio Mcginnis NON LICENSED NUCLEAR PLANT OPERATOR Work Phone: [facility] 06-02-2023 13:10-0500 Respiratory rate 16 /min Rojelio Mcginnis NON LICENSED NUCLEAR PLANT OPERATOR Work Phone: [facility] 06-02-2023 13:10-0500 SaO2% (BldA) [Mass fraction] 97 % Rojelio Mcginnis NON LICENSED NUCLEAR PLANT OPERATOR Work Phone: [facility] 06-02-2023 13:10-0500 Systolic blood pressure 126 mm[Hg] Rojelio Mcginnis NON LICENSED NUCLEAR PLANT OPERATOR Work Phone: [facility] 05-28-2023 13:10-0500 Body height 162.6 cm Hussein Napier MD Work Phone: [facility] [facility] 05-28-2023 13:10-0500 Body mass index (BMI) [Ratio] 35.19 kg/m2 Hussein Napier MD Work Phone: [facility] [facility] 05-28-2023 13:10-0500 Body weight 92.99 kg Hussein Napier MD Work Phone: [facility] 03-11-2023 13:34-0500 Body height 165.1 cm Rojelio Mcginnis NON LICENSED NUCLEAR PLANT OPERATOR Work Phone: [facility] 03-11-2023 13:34-0500 Body mass index (BMI) [Ratio] 37.11 kg/m2 Rojelio Mcginnis NON LICENSED NUCLEAR PLANT OPERATOR Work Phone: [facility] 03-11-2023 13:34-0500 Body weight 101.15 kg Rojelio Mcginnis NON LICENSED NUCLEAR PLANT OPERATOR Work Phone: [facility] 03-11-2023 13:34-0500 Diastolic blood pressure 62 mm[Hg] Rojelio Mcginnis NON LICENSED NUCLEAR PLANT OPERATOR Work Phone: [facility] 03-11-2023 13:34-0500 Heart rate 76 /min Rojelio Mcginnis NON LICENSED NUCLEAR PLANT OPERATOR Work Phone: [facility] 03-11-2023 13:34-0500 Respiratory rate 21 /min Rojelio Mcginnis NON LICENSED NUCLEAR PLANT OPERATOR Work Phone: [facility] 03-11-2023 13:34-0500 SaO2% (BldA) [Mass fraction] 95 % Rojelio Mcginnis NON LICENSED NUCLEAR PLANT OPERATOR Work Phone: [facility] 03-11-2023 13:34-0500 Systolic blood pressure 116 mm[Hg] Rojelio Mcginnis NON LICENSED NUCLEAR PLANT OPERATOR Work Phone: [facility] 02-10-2023 13:04-0400 Body mass index (BMI) [Ratio] 38.97 kg/m2 Karthik Diallo RD Work Phone: [facility] 02-10-2023 13:04-0400 Body weight 106.[address] Work Phone: [facility] 01-22-2023 13:36-0400 Body height 162.6 cm Hussein Napier MD Work Phone: [facility] 01-22-2023 13:36-0400 Body mass index (BMI) [Ratio] 41.2 kg/m2 Hussein Napier MD Work Phone: [facility] 01-22-2023 13:36-0400 Body weight 108.86 kg Hussein Napier MD Work Phone: [facility] 01-07-2023 13:21-0400 Body height 165.1 cm Rojelio Mcginnis NON LICENSED NUCLEAR PLANT OPERATOR Work Phone: [facility] 01-07-2023 13:21-0400 Body mass index (BMI) [Ratio] 41.17 kg/m2 Rojelio Mcginnis NON LICENSED NUCLEAR PLANT OPERATOR Work Phone: [facility] 01-07-2023 13:21-0400 Body weight 112.22 kg Rojelio Mcginnis NON LICENSED NUCLEAR PLANT OPERATOR Work Phone: [facility] 01-07-2023 13:21-0400 Diastolic blood pressure 60 mm[Hg] Rojelio Mcginnis NON LICENSED NUCLEAR PLANT OPERATOR Work Phone: [facility] 01-07-2023 13:21-0400 Heart rate 90 /min Rojelio Mcginnis NON LICENSED NUCLEAR PLANT OPERATOR Work Phone: [facility] 01-07-2023 13:21-0400 Respiratory rate 21 /min Rojelio Mcginnis NON LICENSED NUCLEAR PLANT OPERATOR Work Phone: [facility] 01-07-2023 13:21-0400 SaO2% (BldA) [Mass fraction] 95 % Rojelio Mcginnis NON LICENSED NUCLEAR PLANT OPERATOR Work Phone: [facility] 01-07-2023 13:21-0400 Systolic blood pressure 100 mm[Hg] Rojelio Mcginnis NON LICENSED NUCLEAR PLANT OPERATOR Work Phone: [facility] 12-25-2022 13:46-0400 Body height 165.1 cm Thor Cruz DO Work Phone: [facility] 12-25-2022 13:46-0400 Body mass index (BMI) [Ratio] 41.93 kg/m2 Thor Cruz DO Work Phone: [facility] 12-25-2022 13:46-0400 Body weight 114.31 kg Thor Cruz DO Work Phone: [facility] 12-25-2022 13:46-0400 Diastolic blood pressure 69 mm[Hg] Thor Cruz DO Work Phone: [facility] 12-25-2022 13:46-0400 Heart rate 87 /min Thor Cruz DO Work Phone: [facility] 12-25-2022 13:46-0400 Systolic blood pressure 128 mm[Hg] Thor Cruz DO Work Phone: [facility] 12-09-2022 13:20-0400 Diastolic blood pressure 55 mm[Hg] Thor Cruz DO Work Phone: [facility] 12-09-2022 13:20-0400 Heart rate 97 /min Thor Cruz DO Work Phone: [facility] 12-09-2022 13:20-0400 Respiratory rate 18 /min Thor Cruz DO Work Phone: [facility] 12-09-2022 13:20-0400 SaO2% (BldA) [Mass fraction] 98 % Thor Crzu DO Work Phone: [facility] 12-09-2022 13:20-0400 Systolic blood pressure 117 mm[Hg] Thor Cruz DO Work Phone: [facility] 12-09-2022 11:50-0400 Body temperature 97.11 [degF] Thor Cruz DO Work Phone: [facility] 12-09-2022 04:00-0400 Body mass index (BMI) [Ratio] 47.23 kg/m2 Thor Sweetie DO Work Phone: [facility] 12-09-2022 04:00-0400 Body weight 124.8 kg Thor Cruz DO Work Phone: [facility] 12-08-2022 12:51-0400 Body height 162.6 cm Thor Cruz DO Work Phone: [facility] 11-13-2022 14:00-0400 Body height 162.6 cm Thor Cruz DO Work Phone: [facility] 11-13-2022 14:00-0400 Body mass index (BMI) [Ratio] 48.23 kg/m2 Thor Cruz DO Work Phone: [facility] 11-13-2022 14:00-0400 Body weight 127.46 kg Thor Sweetie DO Work Phone: [facility] 11-13-2022 14:00-0400 Diastolic blood pressure 74 mm[Hg] Thor Sweetie DO Work Phone: [facility] 11-13-2022 14:00-0400 Heart rate 102 /min Thor Sweetie DO Work Phone: [facility] 11-13-2022 14:00-0400 SaO2% (BldA) [Mass fraction] 98 % Thor Cruz DO [facility] 11-13-2022 14:00-0400 Systolic blood pressure 112 mm[Hg] Thor Cruz DO Work Phone: [facility] 10-21-2022 08:51-0400 Body mass index (BMI) [Ratio] 48.61 kg/m2 Karthik Boroff RD Work Phone: [facility] 10-21-2022 08:51-0400 Body weight 128.[address] Work Phone: [facility] 10-02-2022 09:07-0400 Body mass index (BMI) [Ratio] 49.44 kg/m2 Karthik Boroff RD Work Phone: [facility] 10-02-2022 09:07-0400 Body weight 130.[address] Work Phone: [facility] 09-11-2022 09:55-0400 Body height 162.6 cm Thor Cruz Work Phone: [facility] 09-11-2022 09:55-0400 Body mass index (BMI) [Ratio] 49.81 kg/m2 Thor Cruz [facility] 09-11-2022 09:55-0400 Body weight 131.63 kg Thor Cruz [facility] 09-11-2022 09:55-0400 Diastolic blood pressure 70 mm[Hg] Thor Cruz DO [facility] 09-11-2022 09:55-0400 Heart rate 93 /min Thor Cruz DO Work Phone: [facility] 09-11-2022 09:55-0400 Respiratory rate 19 /min Thor Cruz DO Work Phone: [facility] 09-11-2022 09:55-0400 SaO2% (BldA) [Mass fraction] 95 % Thor Cruz DO Work Phone: [facility] 09-11-2022 09:55-0400 Systolic blood pressure 128 mm[Hg] Thor Cruz DO Work Phone: [facility] 07-03-2022 14:23-0500 Body height 162.6 cm Hussein Napier MD Work Phone: [facility] 07-03-2022 14:23-0500 Body mass index (BMI) [Ratio] 46.69 kg/m2 Hussein Napier MD Work Phone: [facility] 07-03-2022 14:23-0500 Body weight 123.38 kg Hussein Napier MD Work Phone: [facility] 01-17-2022 19:01-0400 Body temperature 97.3 [degF] Mariely Athy PA-C Work Phone: [facility] 01-17-2022 19:01-0400 Diastolic blood pressure 60 mm[Hg] Mariely Athy PA-C Work Phone: [facility] 01-17-2022 19:01-0400 Heart rate 72 /min Mariely Athy PA-C Work Phone: [facility] 01-17-2022 19:01-0400 Respiratory rate 22 /min Mariely Athy PA-C Work Phone: [facility] 01-17-2022 19:01-0400 SaO2% (BldA) [Mass fraction] 96 % Mariely Athy PA-C Work Phone: [facility] 01-17-2022 19:01-0400 Systolic blood pressure 128 mm[Hg] Mariely Athy PA-C Work Phone: [facility] Encounters Encounter Date Encounter Type Care Provider Facility Start: 06-02-2023 ambulatory SELF SELF [facility] Start: 06-02-2023 End: 06-02-2023 Office outpatient visit 10 minutes Rojelio Mcginnis CNP Work Phone: [facility] Procedures Date Procedure Procedure Detail Performing Clinician Start: 12-09-2022 Gluc bld gluc mntr dev cleared fda spec home use Thor Galvez Cruz DO Work Phone: Start: 12-09-2022 Complete blood count with white cell differential, automated Thor Leonor Sweetie DO Work Phone: Start: 12-09-2022 Gluc bld gluc mntr dev cleared fda spec home use Thor Leonor Cruz DO Work Phone: Start: 12-09-2022 Basic metabolic panel calcium total Thor Leonor Sweetie DO Work Phone: Start: 12-09-2022 Complete blood count with white cell differential, automated Thor Leonor Sweetie DO Work Phone: Start: 12-08-2022 Gluc bld gluc mntr dev cleared fda spec home use Thor Leonor Sweetie DO Work Phone: Start: 12-08-2022 Gluc bld gluc mntr dev cleared fda spec home use Thor Leonor Cruz DO Work Phone: Start: 12-08-2022 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 Karthik Diallo RD Work Phone: Start: 12-08-2022 Basic metabolic panel calcium total Thor Leonor Cruz DO Work Phone: Start: 12-08-2022 End: 12-08-2022 Laps gstr rstcv px w/byp nader-en-y limb <150 cm Thor Cruz DO Work Phone: Start: 12-08-2022 Basic [...] or Plasma Thor Cruz DO Work Phone: History of gastroint estinal tract bypass History of Nader-en-Y gastric bypass Rojelio Mcginnis NON LICENSED NUCLEAR PLANT OPERATOR Work Phone: Plan of Treatment Date Care Activity Detail Author Start: 09-27-2027 [facility] Start: 01-29-2026 [facility] Start: 05-13-2024 Creatinine measurement Creatinine [facility] Start: 03-11-2024 Lipid panel LIPIDS [facility] Start: 12-30-2023 Creatinine measurement Creatinine [facility] Start: 12-03-2023 End: 12-03-2023 Telemedicine consultation with patient 12/03/2023 11:50 AM EDT Telemedicine [facility] [address] [place] [address] Hussein Napier MD [address] [place], [place] [id number] [facility] Start: 11-26-2023 End: 05-28-2024 Creatinine [Mass/volume] in Serum or Plasma Creatinine, Serum Lab Routine Left renal mass Expected: 11/26/2023 (Approximate), Expires: 05/28/2024 [facility] Immunizations Immunization Date Immunization Notes Care Provider Fa cility 12-31-2020 influenza virus vaccine, unspecified formulation Thor Cruz DO Work Phone: [facility] 08-02-2020 COVID-19 vaccine, mR LIDYA, Pfizer, 0.3 ML Thor Cruz DO Work Phone: [facility] 07-12-2020 COVID-19 vaccine, mR NA, Pfizer, 0.3 ML Thor Cruz DO Work Phone: [facility] Payers Date Payer Category Payer Medicare [id number] 2022 Medicare [id number] 2022 Medicare [id number] 2021 Medicaid [id number] 2021 Unknown JULIO MURRY [id number] 2021-Present [address] [place] [address] [id number] 2020 Medicaid [id number] 2020 Medicaid [id number] 2016 Unknown [id number] 1958 Unknown [id number] 1958 Unknown [id number] [id number]3 1958 Unknown [id number] 2.16.840.1.870210.3.579.2.983 1958 Unknown [id number] 2.16.840.1.874328.3.579.2.983 1958 Unknown [id number] 2.16.840.1.826122.3.579.2.983 1958 Unknown [id number] 2.16.840.1.608245.3.579.2.983 1958 Unknown [id number] 2.16.840.1.375660.3.579.2.983 1958 Unknown [id number] 2.16.840.1.359222.3.579.2.983 1958 Unknown [id number] 2.16.840.1.483631.3.579.2.983 1958 Unknown [id number] 2.16.840.1.191831.3.579.2.983 1958 Unknown [id number] 2.16.840.1.846923.3.579.2.983 1958 Unknown [id number] 2.16.840.1.344964.3.579.2.983 1958 Unknown [id number] 2.16.840.1.356532.3.579.2.983 1958 Unknown [id number] 2.16.840.1.380910.3.579.2.983 1958 Unknown [id number] 2.16.840.1.853378.3.579.2.983 1958 Unknown [id number] [id number] 1958 Unknown [id number] Social History Date Type Detail Facility Start: 01-17-2022 End: 09-11-2022 Tobacco smoking status NHIS Ex-smoker [facility] Start: 05-04-1975 End: 05-04-2005 History of tobacco use Current smoker [facility] Start: 05-04-1975 End: 05-04-2005 History of tobacco use Cigarette Smoker [facility] Start: 01-17-2022 End: 06-02-2023 Cigarettes smoked current (pack per day) - Reported 2 [facility] Start: 01-17-2022 End: 09-11-2022 Tobacco use and exposure Smokeless tobacco non-user [facility] Start: 01-17-2022 Alcohol intake Current non-dr legal specialist of alcohol (finding) [facility] Start: 1960 Sex Assigned At Not on file C [facility] Start: 01-07-2022 End: 01-22-2023 Exposure to SARS-CoV-2 (event) Not sure [facility] Start: 09-11-2022 End: 06-02-2023 Alcohol intake Current drinker of alcohol (finding) [facility] Start: 01-22-2021 Alcohol Comment once a year [facility] Start: 09-11-2022 End: 06-02-2023 Tobacco use panel [facility] Clinical Notes 01-17-2022 to 06-02-2023 Oscar Elias LPN - 06/02/2023 1:30 PM Danna Mcginnis CNP - 06/02/2023 1:30 PM Subha Napier MD - 05/28/2023 1:40 PM Cecelia Hernández - 03/11/2023 1:15 PM ESTDischarge Instructions Note Date & Type Note Facility 06-02-2023 History of Present illness Narrative Patient here today for a 6 month post op appointment. She is down 76 pounds today. Denies any recent issues or concerns. BARIATRIC SURGERY CLINIC FOLLOW UP NOTE Name: Nelia Barker Index Surgery Date of Surgery: 12/08/2022 Surgeon: Thor Cruz DO Surgical Procedure: RYGB Today's Visit: Wt Readings from Last 1 Encounters: 06/02/23 93.3 kg (205 lb 9.6 oz) Body mass index is 34.21 kg/m . Last Visit: Wt Readings from Last 3 Encounters: 06/02/23 93.3 kg (205 lb 9.6 oz) 03/11/23 101.2 kg (223 lb) 02/10/23 106.2 kg (234 lb 3.2 oz) Total weight loss: 76 pounds down [facility]: Here today for her 6 month follow up. Denies any issues. She is not having any issues with constipation diarrhea and abdominal pain. She is tolerating most foods Doesn't tolerate spicy. IF she eats something spicy she gets heartburn. She does take Nexium daily and has been on this since before the surgery. Has been off her bariatric vitamin for 2 months due to high B12and Thiamine level.s She is taking her Calcium. Will restart vitamin after lab redraw from today is back. She states that she feels great. Feels like she is more active and wants to do more things. She is currently in physical therapy for a back injury that she has from a fall she had. Current Outpatient Medications Medication Sig Dispense Refill [...] XL Take 1 tablet by mouth daily. Pramipexole Dihydrochloride 1.5 MG tablet Take 1 [...] Breath. (Patient not taking: Reported on 03/11/2023) Multiple Vitamins-Minerals (BARIATRIC MULTIVITAMINS/IRON PO) Take 1 Dose by mouth daily. Bariatric Pal Multi ONE Chewable (Patient not taking: Reported on 06/02/2023) Ondansetron 4 MG Tab Dispersible tablet Take 1 tablet by mouth every 8 hours as needed. (Patient not taking: Reported on 01/07/2023) 30 tablet 2 oxyCODONE 5 MG/5ML Solution oral solution Take 5 mL by mouth every 6 hours as needed for up to 6 days. 120 mL 0 oxygen gas Inhale 2 L As directed. (Patient not taking: Reported on 01/07/2023) Tresiba FlexTouch 200 UNIT/ML Solution Pen-injector injection INJECT 84 UNITS SUBCUTANEOUSLY DAILY (Patient not taking: Reported on 06/02/2023) No current facility-administered medications for this visit. [...] diarrhea, constipation, abdominal pain, hematochezia or melena. PSYCHIATRIC: Patient denies problems with mood disturbance. No problems with anxiety. DERMATOLOGIC: Patient denies any rashes or skin changes. PHYSICAL EXAM: PHYSICAL EXAMINATION: Visit Vitals BP 126/78 (BP Location: Left arm, BP Position: Sitting) Pulse 78 Resp 16 Ht 1.651 m (5' 5 ) Wt 93.3 kg (205 lb 9.6 oz) SpO2 97% BMI 34.21 kg/m GENERAL: No apparent distress. Pt is alert and oriented x3. VITAL SIGNS: HR, BP, Temp; Normal LUNGS: Clear to auscultation. HEART: Regular rate and rhythm without murmur. ABDOMEN: Soft, nontender, and nondistended. Positive bowel sounds. No hepatosplenomegaly was noted. PSYCHIATRIC: Flat affect, but denies suicidal or homicidal ideations. SKIN: No ulceration or induration present. A/P: Normal post-OP course, doing well. Denies any issues. DISPOSITION: Return for 1 year to Post-op follow up EDUCATION: Pt encouraged to continue with positive lifestyle changes and daily/vitamin intake - Will be in contact with instructions for multi vitamin REFERRALS: N/A LABS: - Today: Domingo, Vit B12, Vit A Vit E Vit B1. In 6 mo: CBC W DIFF, CMP, Vitamin B12, Iron/ TIBC, Lipid panel, TSH, Zinc, Folate, 25 Hydroxy Rojelio Mcginnis CNP Bariatric and Minimally Invasive General Surgery 15 minutes spent with patient on agyl-ue-olfd interaction, history/documentation, education, and coordination of care. documented in this encounter [facility] 05-28-2023 History of Present illness Narrative Images [...] , Rfl: cholecalciferol (Vitamin D-3) 1.25 MG (24533 UT) capsule, TAKE 1 CAPSULE BY MOUTH TWICE WEEKLY, Disp: , Rfl: dexAMETHasone (Decadron) 1 MG tablet, Take 1 tablet (1 mg) by mouth Once for 1 dose. At 10pm the night prior to labs being drawn, Disp: 1 tablet, Rfl: 0 ergocalciferol (Vitamin D-2) 1.25 MG (69268 UT) capsule, Take 50,000 Units by mouth [...] gas, Inhale 2 L., Disp: , Rfl: syslusffnqlhlrn-pmafbsa-tzmpMWJibq n (Mytussin DAC) 30-10-100 MG/5ML solution, Take [...] 05/28/23 1:33 PM documented in this encounter [facility] [employer] 03-11-2023 History of Present illness Narrative Office [...] 01/07/23 112.2 kg (247 lb 6.4 oz) [facility] [place]: She is here today for her 3 [...] Surgery 16 minutes spent with patient on xrhu-xw-lajw interaction, history/documentation, education, and coordination of care. documented in this encounter [facility] 02-10-2023 History of Present illness Narrative OUTPATIENT [...] 3.2 oz) 07/15/21 122.5 kg (270 lb) [place] body weight: 57 kg (125 lb 10.6 [...] and calcium citrate BID (600 MG)- from [employer] 1. iron and calcium by >2 hours 2. Taking calcium twice per day 3. Meeting all bariatric HAND SLITTER recommendations Diet Recall: Meal What Time Breakfast [...] Laterality: N/A; Surgeon: Thor Cruz DO; Location: [facility] GAL OR EGD W/ BX N/A 03/14/2021 Laterality: N/A; Surgeon: Gallito Yates MD; Location: [facility] ONT ENDOSCOPY HEART CATHETERIZATION 2020 no stents [...] Licensed Dietitian 02/10/23 documented in this encounter [facility] 01-22-2023 History of Present illness Narrative Images [...] , Rfl: cholecalciferol (Vitamin D-3) 1.25 MG (18017 UT) capsule, TAKE 1 CAPSULE BY MOUTH TWICE WEEKLY, Disp: , Rfl: dexAMETHasone (Decadron) 1 MG tablet, Take 1 tablet (1 mg) by mouth Once for 1 dose. At 10pm the night prior to labs being drawn, Disp: 1 tablet, Rfl: 0 DULAGLUTIDE SC, Inject under the skin., Disp: , Rfl: ergocalciferol (Vitamin D-2) 1.25 MG (57964 UT) capsule, Take 50,000 Units by mouth [...] gas, Inhale 2 L., Disp: , Rfl: atishntpiqcgjnf-elcefzu-floeWLLtyo n (Mytussin DAC) 30-10-100 MG/5ML solution, Take [...] 01/22/23 1:51 PM documented in this encounter [facility] 01-12-2023 Telephone encounter Note Spoke with patient [...] from there. Patient thanked me for calling. [employer] Work Phone: 01-12-2023 Miscellaneous Notes Spoke with [...] me for calling. documented in this encounter [employer] 01-07-2023 History of Present illness Narrative Office [...] 12/09/22 124.8 kg (275 lb 2.2 oz) [facility] [place]: Here today for her 1 month follow [...] Surgery 15 minutes spent with patient on eryi-si-ogmc interaction, history/documentation, education, and coordination of care. documented in this encounter [facility] 12-29-2022 Telephone encounter Note Pt called to verify the phone number for [employer] in [facility]. States the number we gave her is out of service. I read her the phone number from [employer] in [place] and it is the same phone number. Pt thanked me and states that's the number she tried calling. States she will just go to the address and see if their open today. [facility] [employer] 12-29-2022 Miscellaneous Notes Pt called to verify the phone number for [employer] in [facility]. States the number we gave her is out of service. I read her the phone number from [employer] in [place] and it is the same phone number. Pt thanked me and states that's the number she tried calling. States she will just go to the address and see if their open today. documented in this encounter [facility] 12-25-2022 History of Present illness Narrative BARIATRIC [...] (H) 01/29/2021 Lab Results Component Value Date [id number] 70.5 09/26/2022 Lab Results Component Value Date FOLATE 10.8 09/26/2022 Lab Results Component Value Date [id number] 169.7 09/26/2022 IMPRESSION: S/P RYGB PLAN: DISPOSITION: Return in 2 weeks for follow up visit EDUCATION: Pt encouraged to continue with positive lifestyle changes and take vitamins daily Start exercising Start vitamins Advance to pureed diet Thor Cruz DO documented in this encounter [facility] 12-09-2022 Miscellaneous Notes Pt leaves the floor at this time ambulatory accompanied by her sister and Talia AL, going home. IV removed, VS stable, discharge instructions and medications reviewed with pt, cell phone and pediatrician active practice and sealed Niia-Yc-Tmin package and all other belongings sent with [...] OF SERVICE: 12/08/2022 NAME: Nelia Barker CSN: [id number] PRE OP DIAGNOSES: Morbid obesity with DM [...] ICG for perfusion SURGEON: Thor Cruz DO SUPERVISOR SEWING ROOM: Surgical Staff: Film Coater: Samanta Reyes RN; Cammy Elise RN Software Tools Engineer [employer]: Taylor Caruso Lens Assistant: Viktor Rubin ANESTHESIA: GETA ESTIMATED BLOOD LOSS IN MLS: 20 COMPLICATIONS: None SPECIMEN: None PREOPERATIVE NOTE: The contemplated operative procedure, risks, benefits and alternatives to this procedure have been discussed with this patient and/or legal sales solutions representative. The patient and/or legal sales solutions representative acknowledge(s) understanding of the above and [...] DO 12:16 PM documented in this encounter [facility] 12-09-2022 Nurse Note Pt leaves the floor at this time ambulatory accompanied by her sister and Talia AL, going home. IV removed, VS stable, discharge instructions and medications reviewed with pt, cell phone and pediatrician active practice and sealed Svoc-Gb-Vzgm package and all other belongings sent with pt. [facility] 12-09-2022 Plan of care note Problem: Patient [...] discharge/transition of care. Outcome: Adequate for Discharge [facility] 12-09-2022 Hospital course Narrative Discharge Summary Name: Nelia Barker Age: 62 y.o. Birthday: 1960 Admit Date: 12/08/2022 6:33 AM Discharge Date: 12/09/22 Discharge Time: 1223 Discharge Unit: [facility] Admission Information Admitting Physician: Thor Cruz [...] Commonly known as: TYLENOL Drisdol 1.25 MG (86630 UT) CAPS Generic drug: ergocalciferol FeroSul 325 (65 Fe) MG TABS Generic drug: ferrous sulfate furOSEmide 20 MG TABS Commonly known as: LASIX glipiZIDE 10 MG tablet regular release Commonly known as: GLUCOTROL Magnesium Oxide -Mg Supplement 500 MG TABS TRESIBA SC Trulicity 4.5 MG/0.5ML SOPN Generic drug: Dulaglutide vitamin D3 1.25 MG (71214 UT) CAPS Follow-up: No follow-up provider specified. Upcoming Appointments (up to five)-Some appointments for Medical Center outpatient clinics or diagnostic testing locations are not displayed below Provider Department Dept Phone 12/25/2022 1:45 PM Thor Cruz [facility] [phone] 02/09/2023 1:00 PM Karthik Diallo [facility] Nutrition and Dietetics [phone] documented in this encounter [facility] 12-09-2022 Hospital Discharge instructions Thor Cruz DO [...] issues or concerns. documented in this encounter [facility] 12-09-2022 Nurse Note Assessment unchanged from previous unless otherwise noted. [facility] 12-09-2022 History of Present illness Narrative INPATIENT POST BARIATRIC SX NUTRITION ASSESSMENT Ms. Nleia Barker is a 62 y.o. female was admitted to [facility] for: 1. body mass index of 40.0-49.9 [...] (270 lb) 04/24/21 123.8 kg (273 lb) [place] body weight: 54.7 kg (120 lb 9.5 [...] Laterality: N/A; Surgeon: Gallito Yates MD; Location: [facility] ONT ENDOSCOPY HEART CATHETERIZATION 2020 no stents [...] 12/09/2022 RBC 4.43 12/09/2022 B12 707 09/26/2022 [id number] 70.5 09/26/2022 FOLATE 10.8 09/26/2022 Nutrition Diagnosis [...] used Level of Ambulation community PRIOR LEVEL AM-[facility] Basic Mobility Inpatient Short Form Turning over in bed 4 - No Assistance Sitting/standing from chair 4 - No Assistance Moving from lying on back to sitting 4 - No Assistance Moving to and from bed to chair 4 - No Assistance Walk in hospital room 4 - No Assistance Climbing 3-5 steps with a railing 4 - No Assistance PRIOR LEVEL AM-[facility] Mobility Raw Score 24 PRIOR LEVEL AM-[facility] Mobility Functional Limitation/Modifier 0.00% Prior Functional Impairment [...] Dynamic Standing-Level of Assistance Independent Rolling/Turning Mobility Valley Level: Rolling/Turning independent Skilled Intervention/Details: Rolling/Turning education completed for proper log roll technique; pt completes without difficulty Supine to Sit Mobility Valley Level: Supine->Sit independent Sit to Stand Transfer Valley Level: Sit->Stand independent Stand to Sit Transfer Valley Level: Stand->Sit independent Gait Assessment Valley Level: Gait independent Ambulation Distance (Feet) 600 Skilled Intervention/Details - Gait gait speed and pattern WFL Stairs Assessment Valley Level: Stair Negotiation (denies stair training intervention, reports no difficulty at baseline and demonstrates strength and ROM appropriate for task) CURRENT [facility] Basic Mobility Inpatient Short Form Turning over in bed 4 - No Assistance Sitting/standing from chair 4 - No Assistance Moving from lying on back to sitting 4 - No Assistance Moving to and from bed to chair 4 - No Assistance Walk in hospital room 4 - No Assistance Climbing 3-5 steps with a railing 4 - No Assistance CURRENT [facility] Mobility Raw Score 24 CURRENT [facility] Mobility Functional Limitation/Modifier 0.00% Currently Impaired in [...] Laterality: N/A; Surgeon: Thor Cruz DO; Location: [facility] GAL OR EGD W/ BX N/A 03/14/2021 Laterality: N/A; Surgeon: Gallito Yates MD; Location: [facility] ONT ENDOSCOPY HEART CATHETERIZATION 2020 no stents RELEASE CARPAL TUNNEL Right 2000 TUBAL LIGATION 1996 LAP CHOLECYSTECTOMY PT Assessment: Patient is a pleasant 62 yo female presenting to [facility] s/p lap nader-en-y gastric bypass 12/08/22 with [...] any post discharge assistance. Please contact the medical social worker if needs arise. documented in this encounter [facility] 12-09-2022 Consult note Associated Order (s): IP CONSULT TO GENERAL MEDICINE Consultation Consult Date/Time: 12/09/22 8:05 AM Consulting Physician: Sweetie Reason for Consultation: Medical Management Hospital Course: Patient presented to [facility] for planned surgery with Dr. [...] 01/23/2021 Added automatically from request for surgery [id number] body mass index of 40.0-49.9 01/22/2021 Past Medical History: Diagnosis Date Asthma Rodriguez esophagus Congestive heart failure Diabetes mellitus Essential hypertension, benign Fatty liver GERD (gastroesophageal reflux disease) Heart failure, diastolic Hyperlipidemia DEVIN (obstructive sleep apnea) Renal disease stage 3 Past Surgical History: Procedure Laterality Date EGD W/ BX N/A 03/14/2021 Laterality: N/A; Surgeon: Gallito Yates MD; Location: [facility] ENDOSCOPY HEART CATHETERIZATION 2020 no stents RELEASE [...] a month Cholecalciferol (vitamin D3) 1.25 MG (16207 UT) capsule TAKE 1 CAPSULE BY MOUTH TWICE WEEKLY 11/30/2022 ergocalciferol (Drisdol) 1.25 MG (45786 UT) capsule 1 capsule. FeroSul 325 (65 [...] Please note portions of this note utilized [employer] dictation software, please excuse any typographical or grammatical errors Associated attestation - Cachorro Sr MD - 12/09/2022 8:07 PM EDT I have independently interviewed and examined the patient. I have discussed waite elements of the care plan with the DIGITAL PROJECT COORDINATOR and I agree with the findings and [...] and dr sweetie Price reviewed See orders [facility] 12-09-2022 Consult note Associated Order (s): IP CONSULT TO GENERAL MEDICINE Consultation Consult Date/Time: 12/09/22 8:05 AM Consulting Physician: Sweetie Reason for Consultation: Medical Management Hospital Course: Patient presented to [facility] for planned surgery with Dr. [...] 01/23/2021 Added automatically from request for surgery [id number] body mass index of 40.0-49.9 01/22/2021 Past Medical History: Diagnosis Date Asthma Rodriguez esophagus Congestive heart failure Diabetes mellitus Essential hypertension, benign Fatty liver GERD (gastroesophageal reflux disease) Heart failure, diastolic Hyperlipidemia DEVIN (obstructive sleep apnea) Renal disease stage 3 Past Surgical History: Procedure Laterality Date EGD W/ BX N/A 03/14/2021 Laterality: N/A; Surgeon: Gallito Yates MD; Location: [facility] ENDOSCOPY HEART CATHETERIZATION 2020 no stents RELEASE [...] a month Cholecalciferol (vitamin D3) 1.25 MG (89809 UT) capsule TAKE 1 CAPSULE BY MOUTH TWICE WEEKLY 11/30/2022 ergocalciferol (Drisdol) 1.25 MG (38814 UT) capsule 1 capsule. FeroSul 325 (65 [...] Temp src Pulse Resp SpO2 Height Weight 08/07/23 1415 152/70 -- -- 98 -- 95 [...] Please note portions of this note utilized [employer] dictation software, please excuse any typographical or grammatical errors Associated attestation - Cachorro Sr MD - 12/09/2022 8:07 PM EDT I have independently interviewed and examined the patient. I have discussed waite elements of the care plan with the DIGITAL PROJECT COORDINATOR and I agree with the findings and [...] reviewed See orders documented in this encounter [facility] 12-09-2022 Nurse Note Prior assessment unchanged, call light within reach. [facility] 12-09-2022 Nurse Note Patient appears asleep at this time, respirations even and unlabored. Call light within reach. [facility] 12-08-2022 Evaluation + Plan note Associated Problem(s): S/P Nader-en-Y gastric bypass Per Bariatric Surgery Pain relief IS Increase activity [facility] 12-08-2022 Evaluation + Plan note Associated Problem(s): Type 2 diabetes mellitus, with long-term current use of insulin Continue with SSI Accuchecks ac/hs Diabetic diet Screening A1C level [facility] 12-08-2022 Evaluation + Plan note Associated Problem(s): DEVIN (obstructive sleep apnea) Continue with CPAP/BIPAP therapy Continuous pulse oximetry and telemetry monitoring [facility] 12-08-2022 Evaluation + Plan note Associated Problem(s): GERD (gastroesophageal reflux disease) Continue PPI daily [facility] 12-08-2022 Evaluation + Plan note Associated Problem(s): Benign hypertension Continue with outpatient therapy Add prn for sbp >160 [facility] 12-08-2022 Evaluation + Plan note Associated Problem(s): Asthma Continue with aerosol breathing treatments [facility] 12-08-2022 Progress note Formatting of t his note might be different from the original. Approached for PT evaluation. Patient s/p bariatric surgery this date by Dr. Cruz. RN currently in with patient. Patient awake and alert but reports double vision at this time. Not yet ready to participate with PT. Will follow up tomorrow. [facility] 12-08-2022 Nurse Note Discharged from PACU in stable condition. Transported via bed to room 268. Bed placed in lowest position. Call light within reach. Report given to Rashawn PASCUAL. Sister at bedside. [facility] 12-08-2022 Nurse Note Patient transferred to PACU via bed, all side rails up Accompanied by Eusebio Lewis CRNA Oral airway in, hob elevated, patient in no obvious distress All monitors attached on arrival to PACU Report given to A Tony RN documented in this encounter [facility] 12-08-2022 Nurse Surgical operation note Patient transferred to PACU via bed, all side rails up Accompanied by Eusebio Lewis CRNA Oral airway in, hob elevated, patient in no obvious distress All monitors attached on arrival to PACU Report given to A Tony RN [facility] 12-08-2022 Progress note Formatting of t his note might be different from the original. I certify that this patient requires inpatient services at this time. I anticipate the expected length of stay will include at least two midnights. Current treatment plan includes pain and nausea control. Plans for post hospitalization care will be discharge to home. [facility] 12-08-2022 Surgery Postoperative evaluation and management note Operative Report DATE OF SERVICE: 12/08/2022 NAME: Nelia Barker CSN: [id number] PRE OP DIAGNOSES: Morbid obesity with DM [...] ICG for perfusion SURGEON: Thor Cruz DO SUPERVISOR SEWING ROOM: Surgical Staff: Film Coater: Samanta Reyes RN; Cammy Elise RN Software Tools Engineer [employer]: Taylor Caruso Lens Assistant: Viktor Rubin ANESTHESIA: GETA ESTIMATED BLOOD LOSS IN MLS: 20 COMPLICATIONS: None SPECIMEN: None PREOPERATIVE NOTE: The contemplated operative procedure, risks, benefits and alternatives to this procedure have been discussed with this patient and/or legal sales solutions representative. The patient and/or legal sales solutions representative acknowledge(s) understanding of the above and [...] for recovery. Thor Cruz DO 12:16 PM [facility] 11-13-2022 History of Present illness Narrative Bariatric History and Physical Patient:Nelia Barker :1960 Date: 11/13/2022 PRIMARY/REFERRING PHYSICIAN INFORMATION Kate Johanna HISTORY OF PRESENT ILLNESS Nelia Barker is [...] Laterality: N/A; Surgeon: Gallito Yates MD; Location: [facility] ENDOSCOPY RELEASE CARPAL TUNNEL Right 2000 TUBAL LIGATION 1996 LAP CHOLECYSTECTOMY Current Outpatient Medications Medication Sig Albuterol Sulfate 108 (90 Base) MCG/ACT Aerosol Powder, breath activated Inhale 2 puffs 4 times daily as needed for Shortness of Breath. atorvastatin 40 MG tablet Take by mouth. Cholecalciferol (vitamin D3) 1.25 MG (87684 UT) capsule TAKE 1 CAPSULE BY MOUTH [...] PM Bariatric Surgery documented in this encounter [facility] 10-27-2022 History of Present illness Narrative Bariatric [...] Edgardo Osman PsyD documented in this encounter [facility] 10-21-2022 History of Present illness Narrative OUTPATIENT [...] (271 lb) 02/04/21 122 kg (269 lb) [place] body weight: 54.7 kg (120 lb 9.5 [...] on a flour wrap 12 pm Snack [place] or apple with a 1/4 cup of [...] with 45 mg iron (30 capsules) lot #[id number] exp 06/28 and she understands to not [...] 09/26/2022 IRON 50 09/26/2022 B12 707 09/26/2022 [id number] 70.5 09/26/2022 FOLATE 10.8 09/26/2022 BP Readings [...] Licensed Dietitian 10/21/22 documented in this encounter [facility] 10-21-2022 Miscellaneous Notes Encounter addended by: Karthik Diallo RD on: 10/21/2022 10:56 AM Actions taken: Clinical Note Signed documented in this encounter [facility] 10-21-2022 Note Encounter addended b y: Karthik Diallo RD on: 10/21/2022 10:56 AM Actions taken: Clinical Note Signed [facility] 10-02-2022 History of Present illness Narrative OUTPATIENT [...] (269 lb) 01/22/21 123.4 kg (272 lb) [place] body weight: 54.7 kg (120 lb 9.5 [...] 09/26/2022 IRON 50 09/26/2022 B12 707 09/26/2022 [id number] 70.5 09/26/2022 FOLATE 10.8 09/26/2022 BP Readings [...] Licensed Dietitian 10/02/22 documented in this encounter [facility] 09-11-2022 History of Present illness Narrative Bariatric [...] by mouth. 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 Hussein Napier MD 07/03/2022 at 2:43 PM Office follow up PATIENT NAME: Nelia Barker DATE OF : 1960 TODAY'S DATE: 07/03/2022 CHIEF COMPLAINT: Chief Complaint Patient presents with Other Adrenal nodule Subjective: Ms. Barkre is a 62 y.o. female who presents [...] , Rfl: cholecalciferol (Vitamin D-3) 1.25 MG (74506 UT) capsule, TAKE 1 CAPSULE BY MOUTH [...] , Rfl: ergocalciferol (Vitamin D-2) 1.25 MG (08099 UT) capsule, Take 50,000 Units by mouth [...] capsule, Take by mouth., Disp: , Rfl: wegyaymjkldlhfc-isaevav-fzkmNPBcjl n (Mytussin DAC) 30-10-100 MG/5ML solution, Take [...] 07/03/22 2:43 PM documented in this encounter [facility] 07-03-2022 History of Present illness Narrative Images [...] , Rfl: cholecalciferol (Vitamin D-3) 1.25 MG (58525 UT) capsule, TAKE 1 CAPSULE BY MOUTH [...] , Rfl: ergocalciferol (Vitamin D-2) 1.25 MG (28557 UT) capsule, Take 50,000 Units by mouth [...] capsule, Take by mouth., Disp: , Rfl: fspjkithbotkigr-tslrkrn-tflaLHBqch n (Mytussin DAC) 30-10-100 MG/5ML solution, Take [...] 07/03/22 2:43 PM [facility] Miscellaneous Notes Addended by: ARGENIS SIM on: 12/29/2022 12:19 PM Modules accepted: Orders documented in this encounter [facility] 07-03-2022 Miscellaneous Notes Addended by: ARGENIS SIM on: 12/29/2022 12:19 PM Modules accepted: Orders Addended by: ASTRID RAO on: 05/13/2023 04:31 PM Modules accepted: Orders documented in this encounter [facility] 07-03-2022 Note Addended by: ARGENIS ZAPATA on: 12/29/2022 12:19 PM Modules accepted: Orders [facility] 07-03-2022 Note Addended by: ARGENIS ZAPATA on: 12/29/2022 12:19 PM Modules accepted: Orders [facility] 07-03-2022 Note Addended by: ASTRID RAO on: 05/13/2023 04:31 PM Modules accepted: Orders [facility] 01-18-2022 Note HNO ID: [id number] Author: RT Ajith(R) Service: Radiology Author Type: Technologist Type: Progress [...] RT Ajith(R) January 18, 2022 8:45 AM [facility] 01-18-2022 Miscellaneous Notes Patient calls and notified of results and providers instructions. Patient verbalizes understanding. Adeola Broderick RN Left message for patient to return call. Argenis Brown Negative for COVID please notify documented in this encounter [facility] 01-17-2022 Note HNO ID: [id number] Author: Marium Rosales LPN Service: ? Author [...] improved ability to breathe. Marium Rosales LPN [facility] 01-17-2022 Note HNO ID: [id number] Author: Mariely Garcia PA-C Service: ? Author Type: Physician Stator Plate Washer Type: Progress Notes Filed: 01/17/2022 7:22 PM Note Text: This note was created using [employer]. Subjective Nelia Barker is a 61 year [...] 1. Lower respiratory (more content not included)... [facility] 09-16-2022 History of Present illness Narrative Patient presented [facility], verified by name, date of pulse oxygen at start of visit 96 % taken on three fingers pulse 72. Patient verified by name, Date of Duoneb treatment completed pulse oxygen reading 97%, pulse 92. Patient reported improved ability to breathe. Marium Rosales LPN This note was created using [employer]. Subjective Nelia Barker is a 61 year [...] agreeable. 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 Diagnosis Binge-eating disorder, in full remission, mild- Primary Recurrent major depressive disorder, in full remission documented in this [facility]* Diagnosis body mass index of 40.0-49.9- Primary Type 2 diabetes mellitus without complication, with long-term current use of insulin documented in this [facility]* Diagnosis S/P Nader-en-Y gastric [...] to excess calories documented in this [facility]* Diagnosis S/P Nader-en-Y gastric bypass- Primary Bariatric surgery status documented in this [facility]* Diagnosis Left renal mass- Primary Unspecified disorder of kidney and ureter Adrenal nodule (HCC) Benign neoplasm of adrenal gland [facility]* Diagnosis Left renal mass Unspecified disorder of kidney and ureter documented in this encounter [facility] note* Diagnosis History of Nader-en-Y gastric bypass- Primary Bariatric surgery status Obesity, morbid, BMI 40.0-49.9 Type 2 diabetes mellitus without complication, with long-term current use of insulin Intestinal malabsorption, unspecified type documented in this [facility]* Diagnosis Nutritional counseling- Primary Obesity, morbid, BMI 40.0-49.9 documented in this [facility]* Diagnosis Obesity, morbid, BMI 40.0-49.9- Primary [facility] Left renal mass- Primary Unspecified disorder of kidney and ureter Adrenal nodule (HCC) Benign neoplasm of adrenal gland Left renal mass Unspecified disorder of kidney and ureter documented [facility] this [facility]* Diagnosis Left renal mass Unspecified disorder of kidney and ureter documented [facility] this [facility]* Diagnosis Left renal mass- Primary Unspecified disorder of kidney and ureter documented in this encounter [facility] note* Diagnosis History of Nader-en-Y gastric bypass- Primary Bariatric surgery status Intestinal malabsorption, unspecified type High serum vitamin B12 Obesity (BMI 30-39.9) Obesity, unspecified [facility] (Routine) Specialty Diagnoses / Procedures Referred By Villa segal Referred To Contact MAI ELLISON REV LOC [address] [place] [address] Referral ID Status Reason Start Date Expiration Date Visits Re quested Visits Authorized [facility] Summary Purpose Family History No Family History [...] 2 diabetes mellitus without complication, unspecified whether fdc insulin use Essential hypertension Thor Cruz, DO [address] [place] [address] Referral ID Status Reason Start Date Expiration Date V isits Requested Visits Authorized [id number] New Request 09/11/2022 10/06/2023 1 1 Specialty Diagnoses / Procedures Referred By Contac t Referred To Contact Psychology Diagnoses Obesity, morbid, BMI 40.0-49.9 Gastroesophageal reflux disease, unspecified whether esophagitis present Type 2 diabetes mellitus without complication, 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 [place] [address] Referral ID Status Reason Start Date Expiration Date V isits Requested Visits Authorized [id number] Authorized 07/03/2022 12/30/2022 1 1 Referral ID Status Reason Start Date Expiration Date Visits Re quested Visits Authorized [id number] Closed 07/03/2022 12/30/2022 1 1 Referral ID Status Reason Start Date Expiration Date V isits Requested Visits Authorized [id number] Pending Review 01/22/2023 07/21/2023 1 1 Specialty Diagnoses / Procedures Referred By Contac t Referred To Contact Radiology Diagnoses Left renal mass Procedures MR abdomen w and wo contrast Hussein Napier MD [address] [place] [address] Referral ID Status Reason Start Date Expiration Date Visits Re quested Visits Authorized [id number] Closed 01/22/2023 07/21/2023 1 1 Referral ID Status Reason Start Date Expiration Date V isits Requested Visits Authorized [id number] Pending Review 05/28/2023 05/27/2024 1 1 Additional Source Comments INFORMATION SOURCE (unrecogn ized section and content) DATE CREATED AUTHOR AUTHOR'S ORGANIZ ATION 02/01/2022 [facility] DATE CREATED AUTHOR AUTHOR'S ORGANIZ ATION 12/11/2022 [facility] DATE CREATED AUTHOR AUTHOR'S ORGANIZ ATION 05/30/2023 [facility] DATE CREATED AUTHOR AUTHOR'S ORGANIZ ATION 06/08/2023 [facility] Source Comments (unrecognize d section and content) In the event this informatio n is protected by the Federal Confidentiality of Alcohol and Drug Abuse Patient Records regulations: The Federal rules restrict any use of the information to criminally investigate or prosecute any alcohol or drug abuse patient.[facility] the event this information is protected by the Federal Confidentiality of Alcohol and Drug Abuse Patient Records regulations: The Federal rules restrict any use of the information to criminally investigate or prosecute any alcohol or drug abuse patient.[facility] Reason for Visit (unrecogniz ed section and content) Specialty Diagnoses / Procedures Referred By Villa t Referred To Contact Registered Dietitian / Nutrition and Dietetics Diagnoses Final Procedures FOLLOW-UP - GABBY Whitfield, Karthik Williamson, RD [address] [place] [id number] Referral ID Status Reason Start Date Expiration Date V isits Requested Visits Authorized [id number] Pending Review 10/21/2022 11/15/2023 1 1 Reason Comments Cough Pt reported chest co ngestion, x2 wks, SOB, wheezing. 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 Essential hypertension Thor Cruz, DO [address] [place] [address] Referral ID Status Reason Start Date Expiration Date V isits Requested Visits Authorized [id number] New Request 09/11/2022 10/06/2023 1 1 Reason Comments Follow-up Eating Disorder Reason Comments Pre-op Exam Pre op nader [facility] Specialty Diagnoses / Procedures [facility] Referred To Contact Diagnoses Obesity, morbid, BMI 40.0-49.9 Type 2 diabetes mellitus without complication, with long-term current use of insulin Obesity, morbid, BMI 40.0-49.9 [E66.01] Type 2 diabetes mellitus without complication, with long-term current use of insulin [E11.9, Z79.4] Procedures CT LAP GASTRIC BYPASS/NADER-EN-Y BYPASS GASTRIC W/ NADER-EN-Y GASTROENTEROSTOMY LAPAROSCOPIC ROBOTIC Thor Cruz, DO [address] [place] [address] [facility] Referral ID Status Reason Start Date Expiration Date Visits Re quested Visits Authorized [id number] 1 1 Reason Comments Post Op Visit 2 wk post op RNY Reason Comments Other Adrenal nodule Specialty Diagnoses / Procedures [facility] Referred To Contact Radiology Diagnoses Left renal mass Procedures MR abdomen w and wo contrast Hussein Napier MD [address] [facility] [address] [place] [address] Referral ID Status Reason Start Date Expiration Date Visits Re quested Visits Authorized [id number] Closed 07/03/2022 12/30/2022 1 1 Reason Comments Post Op Visit 1 month follow up s/ p nader-en-y gastric bypass performed by Dr. Thor Cruz DO Reason Comments Follow-up Renal mass Specialty Diagnoses / Procedures Referred By Contac t Referred To Contact Registered Dietitian / Nutrition and Dietetics Diagnoses 2 month post op Procedures FOLLOW-UP - Nahid Ortiz Isaac, RD [address] [place] [address] Referral ID Status Reason Start Date Expiration Date V isits Requested Visits Authorized [id number] Pending Review 02/10/2023 03/06/2024 1 1 Reason Comments Post Op Visit 3 months post op Rou x-en-Y gastric bypass Specialty Diagnoses / Procedures Referred By Contac t Referred To Contact Radiology Diagnoses Left renal mass Procedures MR abdomen w and wo contrast Hussein Napier MD [address] [facility] [address] [place] [address] Referral ID Status Reason Start Date Expiration Date Visits Re quested Visits Authorized [id number] Closed 01/22/2023 07/21/2023 1 1 Reason Comments renal mass Follow up Reason Comments Post Op Visit 6 month post op RNY Care Teams (unrecognized sec tion and content) Mult Au Matic Operator Relationship Specialty Start Date End Date Kate Spencer DO PCP - General Family Practice 04/16/15 Mult Au Matic Operator Relationship Specialty Start Date End Date Kate Spencer DO [address] [place] [address] PCP - General Family Medicine 01/22/21 Mult Au Matic Operator Relationship Specialty Start Date End Date Kate Spencer DO [address] [place] [place] [address] PCP - General Family Medicine 01/22/21 Mult Au Matic Operator Relationship Specialty Start Date End Date Kate Spencer DO [address] [place] [address] PCP - General Family Medicine 01/22/21 Mult Au Matic Operator Relationship Specialty Start Date End Date Kate Spencer DO [address] [place] [place] [phone] PCP - General Family Medicine 01/22/21 Mult Au Matic Operator Relationship Specialty Start Date End Date Kate Spencer DO [address] [place] [phone] PCP - General Family Medicine 01/22/21 Mult Au Matic Operator Relationship Specialty Start Date End Date Kate Spencer DO [address] [place] [phone] PCP - General Family Medicine 01/22/21 Mult Au Matic Operator Relationship Specialty Start Date End Date Kate Spencer DO [address] [place] [phone] PCP - General Family Medicine 01/22/21 Mult Au Matic Operator Relationship Specialty Start Date End Date [facility] [address] [place] [address] PCP - General 03/18/22 Hussein Napier MD [address] [place] [address] Surgeon Urology 03/06/22 Mult Au Matic Operator Relationship Specialty Start Date End Date [facility] [address] [place] [address] PCP - General 03/18/22 Hussein Napier MD [address] [place] [address] Surgeon Urology 03/06/22 Mult Au Matic Operator Relationship Specialty Start Date End Date [facility] [address] [place] [address] PCP - General 03/18/22 Hussein Napier MD [address] [place] [address] Surgeon Urology 03/06/22 Mult Au Matic Operator Relationship Specialty Start Date End Date Kate Spencer DO [address] [place] [phone] PCP - General Family Medicine 01/22/21 Mult Au Matic Operator Relationship Specialty Start Date End Date [facility] [address] [place] [address] PCP - General 03/18/22 Hussein Napier MD [address] [place] [address] Surgeon Urology 03/06/22 Mult Au Matic Operator Relationship Specialty Start Date End Date [facility] [address] [place] [address] PCP - General 03/18/22 Hussein Napier MD [address] [place] [address] Surgeon Urology 03/06/22 Mult Au Matic Operator Relationship Specialty Start Date End Date Kate Spencer DO [address] [place] [phone] PCP - General Family Medicine 01/22/21 Mult Au Matic Operator Relationship Specialty Start Date End Date [facility] [address] [place] [address] PCP - General 03/18/22 Hussein Napier MD [address] [place] [address] Surgeon Urology 03/06/22 Mult Au Matic Operator Relationship Specialty Start Date End Date [facility] [address] [place] [address] PCP - General 03/18/22 Hussein Napier MD [address] [place] [address] Surgeon Urology 03/06/22 Mult Au Matic Operator Relationship Specialty Start Date End Date [facility] [address] [place] [address] PCP - General 03/18/22 Hussein Napier MD [address] [place] [address] Surgeon Urology 03/06/22 Mult Au Matic Operator Relationship Specialty Start Date End Date Kate Spencer DO [address] [facility] [place] [phone] PCP - General Family Medicine 01/22/21 Scheduled [...] [id number] ($$New Bag$$ - Provider: Ksenia Cruz, SAMARA) PRN Medication Order 12/07/2022 12/08/2022 12/09/2022 diphenhydrAMINE [...] Cruz, DO - Comment: 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
And Dextrose 10% IV solution [...] at 1523, Until Specified
Who to Notify: DIGITAL PROJECT COORDINATOR/Physician
For all Blood Glucose LESS THAN 70 mg/dl, or greater than 400 mg/dl notify DIGITAL PROJECT COORDINATOR/Physician Group 2: oxyCODONE (ROXICODONE) oral solution 5 [...] BE BASED ON THE PRIMARY CLINICAL RECORDS. [employer] provides no warranty or guarantee of the accuracy or completeness of information in this document.
[2023-07-10 10:00] LABS: Absolute Lymphocyte Count 2.98 X10^3/uL (0.83-4.51); Absolute Neutrophil Count 7.9 X10^3/uL (2.0-7.7); Basophil# 0.05 X10^3/uL; Basophil% 0.4 % (0-1); Eosinophil# 0.16 X10^3/uL; Eosinophils% 1.3 % (0-5); Hematocrit 42.9 % (37-47); Hemoglobin 13.2 g/dL (12.0-15.0); Lymphocyte # 2.98 X10^3/ul (0.83-4.51); Lymphocyte % 24.9 % (19-41); Mean Corp Hgb Conc 30.8 g/dL (32-36); Mean Corpuscular Hgb 26.3 pg (27.0-32.0); Mean Corpuscular Volume 85.5 fL (81-99); Mean Platelet Vol. 10.2 fl (6.2-12.0); Monocyte# 0.81 X10^3/uL; Monocyte% 6.8 % (0-10); NRBC Flagged by Analyzer 0 % (0-5); Neutrophil % 66.1 % (47-70); Platelet Count 398 K/mm3 (150-450); RBC Distribution Width CV 14.9 % (11.6-14.6); RBC Distribution Width SD 46.2 fl (35.1-43.9); Red Blood Count 5.02 M/mm3 (4.2-5.4)
[2023-07-10 10:26] LABS: Vitamin D,25 Hydroxy 80.5 ng/mL
[2023-07-10 10:42] LABS: ALB/GLOB Ratio 0.9 RATIO (0.9-2.4); AST(SGOT) 32 U/L (15-37); Alanine Aminotransfer ALT/SGPT 31 U/L (13-56); Albumin, Serum 3.2 g/dL (3.2-5.0); Alkaline Phosphatase 112 U/L (45-117); Anion Gap 4 (5-15); BUN 14 mg/dL (7-18); Calcium,Total 9.2 mg/dL (8.5-10.1); Chloride 104 mmol/L (98-107); Creatinine, Serum 0.93 mg/dL (0.55-1.02); EST Glomerular Filtration Rate 64 mL/min (>60); Est Glom Filt Rate - Afr Amer 77 mL/min (>60); Globulin 3.4 g/dL (2.2-4.2); Glucose 175 mg/dL (74-106); Potassium 4.1 mmol/L (3.5-5.1); Protein, Total 6.6 g/dL (6.4-8.2); Sodium Level 140 mmol/L (136-145)
[2023-07-13 15:08] LABS: Zinc, Plasma or Serum 58 ug/dL (44-115)
== END | disposition home or self-care (01) ==
LOC: LAB 09:26
PROVIDERS: PCP Family Medicine; Referring Provider Internal Medicine Endocrinology, Diabetes & Metabolism; Visit Provider Internal Medicine Endocrinology, Diabetes & Metabolism
DX: I12.9 Hypertensive chronic kidney disease with stage 1 through stage 4 chronic kidney disease, or unspecified chronic kidney disease (principal); E11.22 Type 2 diabetes mellitus with diabetic chronic kidney disease; N18.30 Chronic kidney disease, stage 3 unspecified; E78.5 Hyperlipidemia, unspecified; K90.9 Intestinal malabsorption, unspecified; E55.9 Vitamin D deficiency, unspecified
CPT/HCPCS: 36415; 80053; 82306; 83735; 84630; 85025

== ENCOUNTER → 2023-07-14 | Outpatient (CLI) | payer MEDICARE, SELFPAY ==
--- NOTE | 2023-07-14 12:21 | BD_ITS ---
STUDY: DUAL ENERGY X-RAY ABSORPTIOMETRY / DXA REASON FOR EXAM: Female, 63 years old. Pedicle fracture TECHNIQUE: Bone Mineral Density (BMD) measurements of lumbar spine and bilateral hips were obtained. COMPARISON: None. FINDINGS: Lumbar Spine (L1-L4): g/cm2 (0.861) / T-score (-1.7) / Z-score (0.1) Findings are suggestive of osteopenia with a moderate fracture risk. Left Femur Total: g/cm2 (0.764) / T-score (-1.5) / Z-score (-0.2) Left Femoral Neck: g/cm2 (0.599) / T-score (-2.3) / Z-score (-0.7) Right Femur Total: g/cm2 (0.767) / T-score (-1.4) / Z-score (-0.2) Right Femoral Neck: g/cm2 (0.584) / T-score (-2.4) / Z-score (-0.9) BD/Dexa Bone Density Study IMPRESSION: The patient is considered osteopenic as outlined below according to World Riley Organization (WHO) criteria with a high fracture risk. Reference Information: The T-score is the number of standard deviations above or below the standard which is normal for young adults at their peak bone mineral density. The World Health Organization (WHO) interprets the T-scores as follows: Above -1 Normal bone density Between -1 and -2.5 Osteopenia Equal to / or below -2.5 Osteoporosis As a practical clinical guideline, osteopenia may be graded as follows: Mild -1 through -1.5 Moderate -1.6 through -2.0 Severe -2.1 through -2.4 The Z-score is the number of standard deviations above or below age-matched controls. A Z-score of less than -1.5 would be considered abnormal. References: 1. NIH Osteoporosis and Related Bone Diseases www osteo.org 2. International Society for Clinical Densitometry www iscd.org 3. National Osteoporosis Foundation www nof.org Electronically Signed: Simeon Osuna MD at 13:48 EDT ,
== END | disposition home or self-care (01) ==
LOC: OPBD 15:17
PROVIDERS: PCP Family Medicine; Referring Provider Internal Medicine Endocrinology, Diabetes & Metabolism; Visit Provider Internal Medicine Endocrinology, Diabetes & Metabolism
DX: M48.46XA Fatigue fracture of vertebra, lumbar region, initial encounter for fracture (principal); M81.0 Age-related osteoporosis without current pathological fracture; X58.XXXA Exposure to other specified factors, initial encounter
CPT/HCPCS: 77080

== ENCOUNTER → 2023-08-24 | Outpatient (CLI) | payer MEDICARE, SELFPAY ==
[2023-08-24 15:22] LABS: Absolute Lymphocyte Count 3.19 X10^3/uL (0.83-4.51); Absolute Neutrophil Count 9.1 X10^3/uL (2.0-7.7); Basophil# 0.05 X10^3/uL; Basophil% 0.4 % (0-1); Eosinophils% 1.5 % (0-5); Hematocrit 40.5 % (37-47); Hemoglobin 12.4 g/dL (12.0-15.0); Lymphocyte # 3.19 X10^3/ul (0.83-4.51); Lymphocyte % 23.9 % (19-41); Mean Corp Hgb Conc 30.6 g/dL (32-36); Mean Corpuscular Hgb 26.4 pg (27.0-32.0); Mean Corpuscular Volume 86.4 fL (81-99); Mean Platelet Vol. 10.6 fl (6.2-12.0); Monocyte# 0.73 X10^3/uL; Monocyte% 5.5 % (0-10); NRBC Flagged by Analyzer 0 % (0-5); Neutrophil # 9.12 X10^3/uL (2.7-7.7); Neutrophil % 68.3 % (47-70); Platelet Count 373 K/mm3 (150-450); RBC Distribution Width CV 14.6 % (11.6-14.6); RBC Distribution Width SD 46.4 fl (35.1-43.9); Red Blood Count 4.69 M/mm3 (4.2-5.4); White Blood Count 13.4 K/mm3 (4.4-11.0)
[2023-08-24 16:08] LABS: Ferritin 29 ng/mL (8-252); Iron 31 ug/dL (50-170)
== END | disposition home or self-care (01) ==
PROVIDERS: PCP Family Medicine; Referring Provider Family Medicine; Visit Provider Family Medicine
DX: Z51.81 Encounter for therapeutic drug level monitoring (principal); T14.8XXA Other injury of unspecified body region, initial encounter; X58.XXXA Exposure to other specified factors, initial encounter; D64.9 Anemia, unspecified
CPT/HCPCS: 36415; 82728; 83540; 85025

== ENCOUNTER 2024-03-11 10:33 | Outpatient (CLI) | payer MEDICARE, SELFPAY ==
[2024-03-11 11:14] VITALS: BP 136/67; PULSE 67; RESP 16; TEMP 36.3; O2SAT 100; BMI 30.5
[2024-03-11] MEDS: Zoledronic Acid 5 MG 5 MG in Premixed Bag 1 BAG 300 MG IV (11:37)
[2024-03-11] MEDS: 0.9% NaCl Peripheral Flush Adult/Peds IV ×2 (11:40→11:41)
[2024-03-11 12:14] VITALS: BP 138/59; PULSE 78; RESP 16; TEMP 36.5; O2SAT 97
== END 2024-03-11 23:59 | disposition home or self-care (01) ==
LOC: MEDOUTP 10:34
PROVIDERS: PCP Family Medicine; Referring Provider Internal Medicine Endocrinology, Diabetes & Metabolism; Visit Provider Internal Medicine Endocrinology, Diabetes & Metabolism
DX: M81.0 Age-related osteoporosis without current pathological fracture (principal)
CPT/HCPCS: 96365; A4216; J3489

== ENCOUNTER 2024-03-13 00:34 | Emergency (ER) | payer MEDICARE, OTHER, SELFPAY ==
[2024-03-13 00:34] VITALS: BP 154/72; PULSE 98; RESP 20; TEMP 36.1; O2SAT 95; BMI 34.0
[2024-03-13] MEDS: Morphine 4 MG/ML Syringe IV (00:57)
[2024-03-13 01:00] LABS: Absolute Lymphocyte Count 0.76 X10^3/uL (0.83-4.51); Absolute Neutrophil Count 8.4 X10^3/uL (2.0-7.7); Basophil# 0.06 X10^3/uL; Basophil% 0.6 % (0-1); Eosinophil# 0.17 X10^3/uL; Eosinophils% 1.7 % (0-5); Hematocrit 39.9 % (37-47); Hemoglobin 12.7 g/dL (12.0-15.0); Lymphocyte # 0.76 X10^3/ul (0.83-4.51); Lymphocyte % 7.6 % (19-41); Mean Corp Hgb Conc 31.8 g/dL (32-36); Mean Corpuscular Hgb 26.6 pg (27.0-32.0); Mean Corpuscular Volume 83.6 fL (81-99); Mean Platelet Vol. 9.7 fl (6.2-12.0); Monocyte# 0.64 X10^3/uL; Monocyte% 6.4 % (0-10); NRBC Flagged by Analyzer 0 % (0-5); Neutrophil # 8.37 X10^3/uL (2.7-7.7); Neutrophil % 83.3 % (47-70); Platelet Count 254 K/mm3 (150-450); RBC Distribution Width CV 13.8 % (11.6-14.6); Red Blood Count 4.77 M/mm3 (4.2-5.4)
[2024-03-13 01:13] LABS: Anion Gap 3 (5-15); BUN 12 mg/dL (7-18); BUN/Creat Ratio 14.3 RATIO (10-20); Calcium,Total 7.9 mg/dL (8.5-10.1); Chloride 105 mmol/L (98-107); Creatinine, Serum 0.84 mg/dL (0.55-1.02); EST Glomerular Filtration Rate 72 mL/min (>60); Est Glom Filt Rate - Afr Amer 87 mL/min (>60); Estimated Creatinine Clearance 72.58 ml/min; Glucose 153 mg/dL (74-106); Sodium Level 138 mmol/L (136-145)
[2024-03-13] MEDS: Ketorolac 15 MG/ML Vial 10 MG IV (02:22)
[2024-03-13] MEDS: Calcium Gluconate IV 1 GM in 0.9% Normal Saline (100mL Bag) 100 ML IV (02:22)
[2024-03-13 02:34] VITALS: BP 138/87; PULSE 75; RESP 18; O2SAT 97
[2024-03-13 02:48] VITALS: BP 138/87; PULSE 75; RESP 18; TEMP 36.3; O2SAT 97
== END 2024-03-13 03:38 | disposition home or self-care (01) ==
PROVIDERS: Emergency Provider Emergency Medicine; PCP Family Medicine; Visit Provider Emergency Medicine
DX: E83.51 Hypocalcemia (principal); I13.0 Hypertensive heart and chronic kidney disease with heart failure and stage 1 through stage 4 chronic kidney disease, or unspecified chronic kidney disease; I50.32 Chronic diastolic (congestive) heart failure; E11.22 Type 2 diabetes mellitus with diabetic chronic kidney disease; N18.30 Chronic kidney disease, stage 3 unspecified; T50.995A Adverse effect of other drugs, medicaments and biological substances, initial encounter; G47.30 Sleep apnea, unspecified; F17.290 Nicotine dependence, other tobacco product, uncomplicated
CPT/HCPCS: 71046; 72072; 80048; 85025; 96365; 96366; 96375; 99284; A4216; J0612

== ENCOUNTER → 2024-04-14 | Outpatient (CLI) | payer MEDICARE, OTHER, SELFPAY ==
[2024-04-14 18:00] LABS: Vitamin B12 863 pg/mL (211-911)
[2024-04-14 18:09] LABS: Anion Gap 3 (5-15); BUN 15 mg/dL (7-18); BUN/Creat Ratio 15.7 RATIO (10-20); Calcium,Total 9.2 mg/dL (8.5-10.1); Chloride 105 mmol/L (98-107); Creatinine, Serum 0.96 mg/dL (0.55-1.02); EST Glomerular Filtration Rate 62 mL/min (>60); Est Glom Filt Rate - Afr Amer 75 mL/min (>60); Ferritin 25 ng/mL (8-252); Glucose 109 mg/dL (74-106); Iron 39 ug/dL (50-170); Potassium 4.4 mmol/L (3.5-5.1); Sodium Level 142 mmol/L (136-145)
== END | disposition home or self-care (01) ==
LOC: BFHLAB 14:50
PROVIDERS: PCP Family Medicine; Referring Provider Family Medicine; Visit Provider Family Medicine
DX: R53.83 Other fatigue (principal); E53.8 Deficiency of other specified B group vitamins; D50.9 Iron deficiency anemia, unspecified; Z98.84 Bariatric surgery status
CPT/HCPCS: 36415; 80048; 82607; 82728; 83540

== ENCOUNTER 2024-08-24 17:46 | Emergency (ER) | payer MEDICARE, SELFPAY ==
[2024-08-24 17:47] VITALS: BP 149/70; PULSE 98; RESP 17; TEMP 36.4; O2SAT 95; BMI 32.5
--- NOTE | 2024-08-24 20:24 | RAD_ITS ---
PROCEDURE: CHEST PA AND LATERAL 08/24/2024 REASON FOR EXAM: COUGH TECHNIQUE: Frontal and lateral views of the chest. COMPARISON: None FINDINGS: Cardiomediastinal silhouette is within normal limits. Lungs are clear. No sizable pneumothorax. RAD/Chest PA and Lateral IMPRESSION: No acute airspace abnormality. Reading Location: [facility]
--- NOTE | 2024-08-24 20:25 | EX.ED.VIS.UR ---
HPI HPI - URI History of Present Illness Chief Complaint: Cold Sx Informant: patient Onset/Context/Timing Onset: Days Context: Gradual Onset Timing: Continuous Maximum Severity: Mild Associated Symptoms Associated Symptoms: Positive for Myalgias, Diarrhea and Nonproductive cough; Negative for Hemoptysis Narrative Narrative: 64-year-old female history of chronic kidney disease, CHF, diabetes prior gastric bypass. Presents with 4 to 5-day history of URI symptoms. Temperature as high as 99. Chills. Nonproductive cough. Had diarrhea for 2 days is since resolved. No melena. No blood. Mild earaches now. Upper back discomfort from coughing. Prior similar symptoms: Yes Recent Illness/Hospitalization: No ROS ROS ED ROS Narrative Cough. Chills. Low-grade temperature. Diarrhea resolved. Constitutional Constitutional ED: Reports fever(s) and subjective Eyes Eyes: Denies blurry vision ENT ENT ED: Reports ear pain Cardiovascular Cardiovascular: Denies chest pain or palpitations Respiratory/Chest Respiratory/Chest: Reports cough; Denies sputum Gastrointestinal Gastrointestinal: Reports diarrhea; Denies abdominal pain, nausea or vomiting Genitourinary Genitourinary ED: Denies dysuria or hematuria Musculoskeletal Musculoskeletal: Reports back pain; Denies arthralgias Integumentary Denies abscess Neurologic Neurologic: Denies headache(s) Psychiatric Psychiatric: Denies anxiety Endocrine Endocrinology: Denies cold intolerance Hematologic/Lymphatic Hematologic/Lymphatic: Denies easy bleeding, easy bruising or lymphadenopathy Allergic/Immunologic Allergic/Immunologic ED: Denies mouth swelling, tongue swelling or urticaria PFSH PFSH Medical History Malabsorption syndrome Osteoporosis Lumbar stress fracture Obesity Stage 3 chronic kidney disease due to type 2 diabetes mellitus Diabetes History of home oxygen therapy Former smoker Elevated heart rate with elevated blood pressure and diagnosis of hypertension Hx of congestive heart failure Mild pulmonary arterial systolic hypertension Grade I diastolic dysfunction Dyspnea on exertion Essential (primary) hypertension Hyperlipidemia Type 2 diabetes mellitus History of Bahena's esophagus GERD (gastroesophageal reflux disease) Nausea Sleep apnea Obesity Influenza A Viral syndrome Reactive airway disease Hypoxia Spondylosis of lumbar region without myelopathy or radiculopathy Low back pain Home Medications ?Medication ?Instructions ?Recorded ?Last Taken ?Type lisinopril 40 mg tablet 40 mg PO DAILY Check with primary 06/08/14 01/16/22 07:00 History doctor duloxetine 60 mg capsule,delayed 60 mg PO QHS sleep 04/08/18 01/16/22 07:00 History release zolpidem 5 mg tablet 5 mg PO QHS sleep 09/05/20 01/15/22 20:00 History metoprolol succinate 100 mg 100 mg PO DAILY bp 10/18/20 01/16/22 07:00 History tablet,extended release 24 hr pramipexole 1.5 mg tablet 1.5 mg PO QHS restless legs 10/18/20 01/15/22 20:00 History atorvastatin 40 mg tablet 40 mg PO QODAY 10/22/21 01/15/22 08:00 History cyclobenzaprine 5 mg tablet 5 mg PO Q12H 02/03/22 Unknown History pen needle, diabetic 32 gauge x #400 ea 07/01/23 Unknown Rx (BD Ultra-Fine Mecca Pen Needle) zoledronic acid 5 mg/100 mL in 1 ea .Route ONCE #100 mL 12/24/23 Unknown Rx mannitol 5 %-water intravenous piggybck sitagliptin 100 mg tablet 100 mg PO DAILY #90 tabs 01/08/24 Unknown Rx esomeprazole magnesium 40 mg 40 mg PO BID 03/11/24 Unknown History capsule,delayed release Farxiga 10 mg tablet 10 mg PO DAILY #90 tabs 07/14/24 Unknown Rx (dapagliflozin propanediol) Allergy/AdvReac Type Severity Reaction Status Date / Time Penicillins Allergy Hives Verified 08/24/24 17:49 Family History Father Cancer bladder cancer Hypertension Mother Diabetes Hypertension Cancer Sister Diabetes Surgical History Gastric bypass status for obesity History of left heart catheterization (07/25/21) History of carpal tunnel release History of cholecystectomy History of tubal ligation Social History Smoking Status: Former smoker how long ago did patient quit smokin alcohol intake: never substance use type: does not use caffeine: Yes Type: coffee Number of servings: 5 EXAM Physical Exam Narrative Exam Narrative: 64-year-old female sitting upright in bed. Vital signs are stable afebrile. Pulse ox 95% on room air. No hypoxia. H EENT exam pupils round react light. Mytrex members. Neck nontender no JVD. No lymphadenopathy. Lungs clear to auscultation bilateral. Dry cough. Coarse breath sounds. Heart regular rhythm rate about 95 no murmur. Chest wall and ribs nontender. Abdomen soft, nontender nondistended normal bowel sounds peritoneal signs. Moving all 4 extremities. 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 Dorsi plantarflexion intact. Calves are nontender without edema or cords. Neurologically she is awake alert no focal motor deficits. Back nontender. Const Vital Signs: 08/24/24 17:47 08/24/24 20:10 Temperature 97.6 F L Temperature Source Oral Pulse Rate 98 Respiratory Rate 17 Respiratory Effort Short of Breath Respiratory Pattern Tachypnea Blood Pressure 149/70 H Blood Pressure Mean 96 Pulse Ox 95 Oxygen Delivery Method Room Air Positive well nourished and well developed; Negative for cachectic or contractures General Appearance ED: well developed and NAD; Negative for cachectic, contractures, cyanotic, diaphoretic or pallor Nutritional Appearance: Negative for cachectic HEENT Reports moist mucous membranes normocephalic and atraumatic Throat: posterior oropharynx normal Eyes PERRL and EOMs intact bilaterally General Eye ED: Negative for pale conjunctiva or scleral icterus Neck no lymphadenopathy, supple, no meningeal signs and no JVD General: Negative for anterior neck swelling or lymphadenopathy Resp normal respiratory effort and No clear to auscultation bilaterally Resp Narrative: Coarse breath sounds bilaterally. Auscultation: Negative for rales, rhonchi, wheezes or diminished lung sounds Cardio S1 normal heart sound, S2 normal heart sound and no murmurs Rate: regular rate Rhythm: regular rhythm GI non-tender, non-distended and no masses Palpation: soft; Negative for tender or guarding Back/Spine no CVA tenderness and normal ROM Extremity normal to inspection and full ROM General Extremety ED: Negative for cyanosis or tenderness General Extremity: Negative for cyanosis Neuro oriented x3 and CN's II-XII intact bilaterally Sensorium / Orientation: alert, oriented to person, oriented to place and oriented to time; Negative for orientation impaired or lethargic Motor Exam: strength 5/5 throughout Psych mental status grossly normal Appearance: Negative for other Attitude: No agitated Mood & Affect: Negative for depressed, anxious or tearful Skin General Skin Exam: Negative for jaundice or pallor Lesions: no lesions Rashes: no rashes MDM MDM MDM Narrative Medical decision making narrative: 64-year-old female URI symptoms suspect viral. Chest x-ray to be obtained to rule out pneumonia. Nurses did a protocol COVID and flu swab which is pending. I do not use any lab work. Her vital signs are stable. She is afebrile. Her pulse ox is normal. Repeat exam patient is doing well at 9:02 PM. We went over her test results and x-ray. She is comfortable being discharged home. Treated as a viral URI. Fluids and rest. Outpatient follow-up as needed. History & Record Review Discussion w/independent historian: Patient Additional record(s) reviewed:: Prior inpatient record, Prior outpatient record, Prior ED visit and Prior labs Lab Data Attestation: I reviewed the patient's lab results. Lab results narrative: COVID, flu and RSV all were negative. Radiography Chest X-Ray - ED: 2 View, Read by ED Physician, Read by Radiologist, Heart, Lungs, Mediastinum, Bony Structures, No Acute Disease and Chronic Changes Diagnostic Testing: Clinical Impression(s) from Imaging Studies Chest X-Ray 08/24/24 20:24 IMPRESSION: No acute airspace abnormality. Reading Location: [facility] Chest x-ray, 2 views, AP and lateral, interpreted both by myself and radiologist shows no acute abnormality. No pneumonia. No effusions. Discharge Plan Triage Chief Complaint: Cold Sx ED Provider: Brennan Sandoval Dx/Rx/DC Orders Clinical Impression: Viral URI, History of diabetes mellitus, History of heart failure Instructions: ED URI, Viral, No Abx (Adult) Prescriptions: No Action zolpidem 5 mg tablet 5 mg PO QHS atorvastatin 40 mg tablet 40 mg PO QODAY Patient Comments: pt takes on even days cyclobenzaprine 5 mg tablet 5 mg PO Q12H zoledronic fdjl-caqlcrry-qsjby 5 mg/100 mL piggyback 1 ea .Route ONCE Qty: 100 0RF Rx Instructions: infuse over 20 minutes Farxiga 10 mg tablet 10 mg PO DAILY Qty: 90 1RF lisinopril 40 MG tablet 40 mg PO DAILY duloxetine 60 MG capsule 60 mg PO QHS pramipexole 1.5 mg tablet 1.5 mg PO QHS metoprolol succinate 100 mg tablet extended release 24 hr 100 mg PO DAILY esomeprazole magnesium 40 mg capsule,delayed release(DR/EC) 40 mg PO BID (DME) pen needle, diabetic [BD Ultra-Fine [place]cca Pen Needle] 32 gauge x 5/32 needle See Rx Instructions .ROUTE .MEDSUPPLY Qty: 400 1RF Rx Instructions: 4 times daily sitagliptin 100 mg tablet 100 mg PO DAILY Qty: 90 3RF Primary Care Provider: Kate Spencer Referrals: Kate Spencer, [Primary Care Provider] - 1 Week if not improving Activity Restrictions/Additional Instructions: Your chest x-ray looks good. No pneumonia. Your COVID flu and RSV test is negative. Treated as a viral URI. Plenty of fluids and rest. Follow-up as needed. Print Language: Faroese Disposition Disposition: Home, Self Care
[2024-08-24 21:05] VITALS: BP 132/80; PULSE 91; RESP 22; TEMP 36.1; O2SAT 95
== END 2024-08-24 21:07 | disposition home or self-care (01) ==
PROVIDERS: Emergency Provider Emergency Medicine; PCP Family Medicine; Visit Provider Emergency Medicine
DX: J06.9 Acute upper respiratory infection, unspecified (principal); I13.0 Hypertensive heart and chronic kidney disease with heart failure and stage 1 through stage 4 chronic kidney disease, or unspecified chronic kidney disease; I50.32 Chronic diastolic (congestive) heart failure; E11.22 Type 2 diabetes mellitus with diabetic chronic kidney disease; N18.30 Chronic kidney disease, stage 3 unspecified; G47.30 Sleep apnea, unspecified; Z87.891 Personal history of nicotine dependence
CPT/HCPCS: 71046; 87631; 99282

== ENCOUNTER → 2024-10-06 | Outpatient (CLI) | payer MEDICARE, SELFPAY ==
--- NOTE | 2024-10-06 | LES_PTH ---
PATIENT: LANA GODOY [facility][id number] AGE/SX: 64/F ROOM: RE10/06/[address]: Dr. Kate Spencer DO : 1960 BED: DIS: 10/06/2024 SPEC #: [id number] RECD: 10/06/24 14:55 STATUS: MARÍA ARIN #: [id number] ZEKE: 10/06/24 00:[address]: Kate Spencer DEPT: SURGICAL PATHOLOGY RECD BY: Asim Mckeon Tissues: A - Skin of arm Procedures: Surgery Specimen Level IV HEADER OPERATION: Excisional biopsy of right upper arm PRE-OP DIAGNOSIS: Keratoacanthoma vs SCC TISSUE SUBMITTED: A- Right upper arm biopsy MICROSCOPIC DIAGNOSIS A. Skin, right upper arm, excision: * Superficial squamous cell carcinoma, keratoacanthomatous type * The inked margins are free of the neoplasm in the planes of the sections that are examined * MICROSCOPIC DESCRIPTION Slides are reviewed. GROSS DESCRIPTION A. Received in formalin in a container labeled with the patient's name, date of , and with the accompanying paperwork indicating, R upper arm is an unoriented and irregular skin excision measuring 1.3 x 1.1 cm with a depth ranging from 0.1 to 0.2 cm. The rodrigues epidermis is notable for an irregular, white-pink, and centrally ulcerated nodule measuring 0.9 x 0.7 x 0.5 cm, coming to within 0.1 cm of the peripheral margin. The deep margin is inked green, and serial sections reveal that the nodule exhibits white-pink surfaces that appear confined to the epidermis. Submitted entirely as follows:A1. Tips, en faceA2. Midportion of specimen [facility] 10-06-2024PT:03100
== END | disposition home or self-care (01) ==
PROVIDERS: PCP Family Medicine; Referring Provider Family Medicine; Visit Provider Family Medicine
DX: C76.41 Malignant neoplasm of right upper limb (principal)
CPT/HCPCS: 88305

== ENCOUNTER → 2024-10-14 | Outpatient (CLI) | payer MEDICARE, SELFPAY ==
--- NOTE | 2024-10-14 14:35 | BI_ITS ---
EXAM: SCRN MAMM (CAD)W/MELANI BILAT 10/14/2024 CLINICAL HISTORY: F, Age 64 y/o , SCREENING TECHNIQUE: Bilateral screening digital breast tomosynthesis with 2D and 3D images. Computer aided detection. COMPARISON: Prior exam(s) dated 08/25/2022,. FINDINGS: TISSUE DENSITY: The breast tissue is composed of scattered area of fibroglandular density. Left breast: There is a triangle skin marker indicating an area of palpable concern in the upper inner left breast at posterior depth. Underlying the skin marker is no definite underlying mammographic finding. Right breast: There is a mass in the lower central right breast at middle depth which appears more prominent when compared to prior exam of 08/25/2022. BI/SCRN MAMM (CAD)W/MELANI BILAT IMPRESSION: 1. The area of patient's palpable concern in the left breast with no definite underlying mammographic finding requires further evaluation. Recommend diagnostic ultrasound of the left breast. 2. The mass in the lower central right breast requires further evaluation. Re commend diagnostic ultrasound of the right breast. Right Breast: BIRADS 0 Incomplete: Need additional imaging evaluation and/or pr ior mammograms for comparison.. Left Breast: BIRADS 0 Incomplete: Need additional imaging evaluation and/or pr ior mammograms for comparison.. OVERALL FINAL ASSESSMENT: BIRADS 0 Incomplete: Need additional imaging evaluati on and/or prior mammograms for comparison.. RECOMMENDATION: Ultrasound. A letter with findings and recommendations will be mailed to the patient. Reading Location: [id number]
== END | disposition home or self-care (01) ==
LOC: OPBI 14:32
PROVIDERS: PCP Family Medicine; Referring Provider Family Medicine; Visit Provider Family Medicine
DX: Z12.31 Encounter for screening mammogram for malignant neoplasm of breast (principal)
CPT/HCPCS: 77063; 77067

== ENCOUNTER → 2024-10-17 | Outpatient (CLI) | payer MEDICARE, SELFPAY ==
--- NOTE | 2024-10-17 13:19 | US_ITS ---
PROCEDURE: BREAST LIMITED UNILATERAL 10/17/2024 REASON FOR EXAM: ABN MAMM TECHNIQUE: BREAST LIMITED UNILATERAL COMPARISON: Prior mammogram dated October 14, 2024.. FINDINGS: Right breast ultrasound was targeted to the lower central aspect of the right breast.. There is a 3 cm x 2.3 cm by 0.8 cm complex density at the 7 o'clock position of the breast at 4 cm from the nipple. This corresponds to the mammographic abnormality. Biopsy recommended. US/Breast Limited Unilateral IMPRESSION: 3 cm x 2.3 cm x 0.8 cm complex density at the 7 o'clock position of the breast at 4 cm from the nipple. Biopsy recommended for further evaluation. Follow-up code: Biopsy Recommended BI-RADS category: 4 Reading Location: [place] [address]
--- NOTE | 2024-10-17 13:19 | US_ITS ---
PROCEDURE: BREAST LIMITED UNILATERAL 10/17/2024 REASON FOR EXAM: ABN MAMM Abnormal screening mammogram. TECHNIQUE: BREAST LIMITED UNILATERAL COMPARISON: Prior mammogram dated October 14, 2024. FINDINGS: Left breast ultrasound was targeted to the upper medial aspect of the left breast.. The palpable lump corresponds to a 2 cm x 0.5 cm slightly echogenic nodule just deep to the skin surface suggestive of a possible lipoma. US/Breast Limited Unilateral IMPRESSION: Impression: The palpable lump corresponds to a 2 cm x 0.5 cm slightly echogenic nodular density deep to the skin surface suggestive of possible lipoma. Birads: BI-RADS 2: BENIGN. RECOMMEND ANNUAL MAMMOGRAPHIC SCREENING. Reading Location: [place] [id number]
== END | disposition home or self-care (01) ==
LOC: OPUS 13:18
PROVIDERS: PCP Family Medicine; Referring Provider Family Medicine; Visit Provider Family Medicine
DX: R92.8 Other abnormal and inconclusive findings on diagnostic imaging of breast (principal)
CPT/HCPCS: 76642

== ENCOUNTER 2024-10-24 14:36 | Outpatient (CLI) | payer MEDICARE, SELFPAY ==
--- NOTE | 2024-10-24 14:00 | BRBX_PTH ---
PATIENT: LANA GODOY LOC: [facility]#:[id number] AGE/SX: 64/F ROOM: RE10/24/[address]: Dr. Carlos Jiménez MD : 1960 BED: DIS: 10/24/2024 SPEC #: [id number] RECD: 10/24/24 14:34 STATUS: MARÍA REQ #: [id number] ZEKE: 10/24/24 14:[address]: Carlos Jiménez DEPT: SURGICAL PATHOLOGY RECD BY: Asim Mckeon ENTERED: 10/24/24 14:59 SP TYPE: BREAST BX OTHR DR: Dr. Kate Spencer DO Tissues: A - Right breast, NOS Procedures: Immunohistochemical Stains Surgery Specimen Level IV IHC Stain ADDITIONAL HEADER OPERATION: Right breast biopsy PRE-OP DIAGNOSIS: Right breast mass TISSUE SUBMITTED: A- Right breast tissue Ischemic Time: Unknown Fixation Time: 29 hours, 30 minute MICROSCOPIC DIAGNOSIS A. Right breast, mass, biopsy: * Benign breast tissue. * IHC for E-cadherin, CK5/6, and p40 support the histologic impression. MICROSCOPIC DESCRIPTION Slides are reviewed. All matched controls reacted appropriately. These tests were developed and their performance characteristics determined by [facility]. They may not have been cleared or approved by the U.[place]. Food and Drug Administration. The FDA has determined that such clearance or approval is not necessary.? The above immunohistochemical/dualISH?markers are reviewed by the Pathologist. GROSS DESCRIPTION A. Received in formalin labeled with the patient's name and date of . Designated as R breast are multiple rodrigues-yellow threadlike tissue core fragments, 0.4 cm to 0.8 cm in length by <0.1 cm in diameter. Entirely submitted in 1 cassette. Cold ischemic time: UnknownFormalin fixation time: 29 hours, 30 minutes DC 10/24/2024 CPT:46817,25260,06289x2
== END 2024-10-24 23:59 | disposition home or self-care (01) ==
LOC: LABSPEC 14:37
PROVIDERS: PCP Family Medicine; Referring Provider Surgery; Visit Provider Surgery
DX: N63.10 Unspecified lump in the right breast, unspecified quadrant (principal)
CPT/HCPCS: 88305; 88341; 88342

== ENCOUNTER 2025-04-28 08:48 | Outpatient (CLI) | payer MEDICARE, SELFPAY ==
[2025-04-28 09:01] VITALS: BP 160/76; PULSE 84; RESP 16; TEMP 36.4; O2SAT 97; BMI 30.5
[2025-04-28] MEDS: 0.9% NaCl IVPB Med Flush (100mL) 15 ML IV (09:11)
[2025-04-28] MEDS: 0.9% NaCl Peripheral Flush Adult IV (09:11)
[2025-04-28 09:49] VITALS: BP 153/77; PULSE 83; RESP 16; TEMP 36.6; O2SAT 99
== END 2025-04-28 23:59 | disposition home or self-care (01) ==
LOC: MEDOUTP 08:49
PROVIDERS: PCP Family Medicine; Referring Provider Internal Medicine Endocrinology, Diabetes & Metabolism; Visit Provider Internal Medicine Endocrinology, Diabetes & Metabolism
DX: M81.0 Age-related osteoporosis without current pathological fracture (principal)
CPT/HCPCS: 96365; A4216; J3489